=== PATIENT | female | born 1945 | race Caucasian/White ===

== ENCOUNTER 2017-12-15 13:03 | Emergency (ER) | payer MEDICARE, BC ==
[2017-12-15 13:57] LABS: ADD MAN DIFF? NO
[2017-12-15 13:59] LABS: BASO # 0.1 x10^3/uL (0.0-0.2); BASO % 1 % (0-3); EOS # 0.1 x10^3/uL (0.0-0.7); EOS % 1 % (0-3); HEMOGLOBIN 13.7 g/dL (12.0-15.5); LYMPH # 1.6 x10^3/uL (1.0-4.8); LYMPH % 15 % (24-48); MEAN CORPUSCULAR HEMOGLOBIN 29 pg (25-35); MEAN CORPUSCULAR HGB CONC 34 g/dL (31-37); MEAN CORPUSCULAR VOLUME 83 fL (79-100); MONO # 0.7 x10^3/uL (0.0-1.1); MONO % 7 % (0-9); NEUT # 7.8 x10^3uL (1.8-7.7); NEUT % 76 % (31-73); PLATELET COUNT 513 x10^3/uL (140-400); RED CELL DISTRIBUTION WIDTH 15.6 % (11.5-14.5); WHITE BLOOD COUNT 10.4 x10^3/uL (4.0-11.0)
[2017-12-15 14:00] LABS: BILIRUBIN,URINE NEGATIVE (NEG); CLARITY,URINE CLEAR; COLOR,URINE YELLOW; GLUCOSE,URINE NEGATIVE (NEG); NITRITE,URINE NEGATIVE (NEG); PROTEIN,URINE NEGATIVE (NEG-TRACE)
[2017-12-15 14:09] LABS: ANION GAP 9 (6-14); BLOOD UREA NITROGEN 12 mg/dL (7-20); CALCIUM 9.6 mg/dL (8.5-10.1); CARBON DIOXIDE 26 mmol/L (21-32); CHLORIDE 100 mmol/L (98-107); CREATININE 0.8 mg/dL (0.6-1.0); GFR 70.7; GLUCOSE 85 mg/dL (70-99); MAGNESIUM 1.6 mg/dL (1.8-2.4); POTASSIUM 3.4 mmol/L (3.5-5.1); SODIUM 135 mmol/L (136-145)
[2017-12-15 14:14] LABS: BACTERIA,URINE MANY /HPF (0-FEW); RBC,URINE OCC /HPF (0-2); WBC,URINE >40 /HPF (0-4)
[2017-12-15 14:20] LABS: TROPONINI < 0.017 ng/mL (0.000-0.055)
[2017-12-15 14:22] LABS: THYROID STIM HORMONE (TSH) 0.248 uIU/mL (0.358-3.74)
[2017-12-15] MEDS: IV NORMAL SALINE 500ML BAG 500 ML IV ×2 (14:30→14:39)
[2017-12-15] MEDS: MAGNESIUM SULFATE 2GM 50 ML IV (14:38)
[2017-12-15] MEDS: CARBIDOPA/LEVODOPA 25/100MG TABLET PO (14:39)
[2017-12-15 14:58] LABS: FREE T4 1.52 ng/dL (0.76-1.46)
== END 2017-12-15 16:59 | disposition home or self-care (01) ==
LOC: ER 13:03
DX: E86.0 Dehydration (principal); R53.1 Weakness; I10 Essential (primary) hypertension; Z88.5 Allergy status to narcotic agent
CPT/HCPCS: 36415; 80048; 81001; 83735; 84439; 84443; 84484; 85025; 93005; 96365; 96366; 99285-25; J3475; J7040

== ENCOUNTER 2018-02-08 12:23 | Inpatient (IN) | payer MEDICARE, BC ==
[~2018-02-08] VITALS: Ht 160 cm; Wt 49.7 kg
[~2018-02-08 12:23] MED LIST: ALPR0.254 PO; AMLO5TAB4 PO; ARIP2TAB3 PO; CARB1TAB2 PO; CLON1TAB4 PO; DULO30CA2 PO; ESTR0.5T PO; GABA600T2 PO; HYDR-963 PO; METH750T2 PO; NORT25CA PO; OXYC-328 PO; OXYC1TAB7 PO; PANT40TA5 PO; POLY17PO29 PO; SUMA100T3 PO; TRIA1TAB3 PO; VENL75TA PO
--- NOTE | 2018-02-08 12:52 | EKG ---
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
[2018-02-08 13:03] LABS: BASO # 0.1 x10^3/uL (0.0-0.2); BASO % 1 % (0-3); EOS # 0.1 x10^3/uL (0.0-0.7); EOS % 1 % (0-3); HEMATOCRIT 34.9 % (36.0-47.0); HEMOGLOBIN 11.8 g/dL (12.0-15.5); LYMPH # 1.5 x10^3/uL (1.0-4.8); LYMPH % 9 % (24-48); MEAN CORPUSCULAR HEMOGLOBIN 29 pg (25-35); MEAN CORPUSCULAR HGB CONC 34 g/dL (31-37); MEAN CORPUSCULAR VOLUME 84 fL (79-100); MONO # 1.1 x10^3/uL (0.0-1.1); MONO % 6 % (0-9); NEUT # 14.4 x10^3uL (1.8-7.7); NEUT % 84 % (31-73); PLATELET COUNT 506 x10^3/uL (140-400); RED BLOOD COUNT 4.13 x10^6/uL (3.50-5.40); RED CELL DISTRIBUTION WIDTH 18.3 % (11.5-14.5); WHITE BLOOD COUNT 17.1 x10^3/uL (4.0-11.0)
[2018-02-08 13:12] LABS: PROTHROMBIN TIME PATIENT 13.2 SEC (11.7-14.0)
--- NOTE | 2018-02-08 13:12 | RAD ---
Portable chest, 02/08/2018: HISTORY: Altered level of consciousness, fall Comparison is made to a study from 01/30/2018. The heart size is normal. There is calcific plaquing of the aorta. No pulmonary infiltrate is seen. There is no evidence of pleural fluid or pneumothorax. IMPRESSION: No acute cardiopulmonary abnormality is detected. Electronically signed by: Iron Nair MD (02/08/2018 1:09 PM) [facility]
[2018-02-08 13:14] LABS: CALCIUM 10.6 mg/dL (8.5-10.1); CREATININE 1.2 mg/dL (0.6-1.0); GFR 44.3; POTASSIUM 4.7 mmol/L (3.5-5.1)
[2018-02-08] MEDS ORDERED: IV NORMAL SALINE 1000ML BAG 1,000 ML IV ONE (13:15)
--- NOTE | 2018-02-08 13:17 | RAD ---
Pelvis with left hip, 3 views, 02/08/2018: History: Fall The bony structures are demineralized. No hip fracture or dislocation is identified. There are mild degenerative changes at both hips and at the symphysis pubis. There is radiopaque material in the GI tract from a previous diagnostic study obscuring portions of the pelvis. IMPRESSION: 1. Demineralization. 2. No acute bony abnormality is detected.
--- NOTE | 2018-02-08 13:23 | RAD ---
CT of the head without contrast, 02/08/2018: History: Fall, altered level consciousness Comparison is made to a study from 11/09/2017 there is mild cerebral atrophy. There is an unchanged lucency in the left thalamus compatible with old infarct. Minimal deep white matter lucencies bilaterally are compatible with chronic ischemic change. The ventricles are within normal limits in size. There is no shift of the midline structures. There is no evidence of acute intracranial hemorrhage or mass effect. IMPRESSION: 1. Chronic findings as described above. 2. No acute intracranial abnormality is detected. CT of the cervical spine without contrast, 02/08/2018: Noncontrast scans were obtained with multiplanar reconstructions produced. There is fusion of the C4-5 disc space. There is severe narrowing of the C3-4 and C5-6 disc spaces with extensive marginal spurring. There is mild anterolisthesis at C3-4 which appears to be due to facet joint arthropathy. There are moderate degenerative changes involving multiple facet joints bilaterally. No acute fracture or dislocation is identified. The combination of findings is causing mild to moderate central spinal stenosis at C4-5 and C5-6 as well as moderate to severe foraminal stenosis at several levels bilaterally. Moderate calcific plaquing is present at both carotid bifurcations. IMPRESSION: 1. Moderate to severe multilevel degenerative change. 2. No acute bony abnormality is detected. Electronically signed by: Iron Nair MD (02/08/2018 1:20 PM) [facility]
[2018-02-08 13:28] LABS: ALBUMIN 3.3 g/dL (3.4-5.0); ALBUMIN/GLOBULIN RATIO 0.9 (1.0-1.7); MAGNESIUM 1.9 mg/dL (1.8-2.4); TOTAL BILIRUBIN 0.5 mg/dL (0.2-1.0); TOTAL PROTEIN 6.9 g/dL (6.4-8.2)
--- NOTE | 2018-02-08 13:51 | HP ---
ADMIT DATE: 02/08/2018 CHIEF COMPLAINT: Fall with hip pain. HISTORY OF PRESENT ILLNESS: The patient is a pleasant 72-year-old female who we just discharged a couple of days ago, now she fell. She was brought in by EMS. I was in the ER and saw her with EMS. She has complains of hip pain, but the leg is not externally rotated. I doubt it is broken. Interestingly, she does have a white count of 17. I have discussed the case with the ER physician. We are going to admit the patient. PAST MEDICAL HISTORY: Hypertension, anxiety, depression, RLS, GERD. ALLERGIES: None. FAMILY HISTORY: Diabetes. SOCIAL HISTORY: She does not drink, smoke or take drugs. MEDICATIONS: Reviewed, please refer to the MRAD. REVIEW OF SYSTEMS: GENERAL: No history of weight change, weakness or fevers. SKIN: No bruising, hair changes or rashes. EYES: No blurred, double or loss of vision. NOSE AND THROAT: No history of nosebleeds, hoarseness or sore throat. HEART: No history of palpitations, chest pain or shortness of breath on exertion. LUNGS: Denies cough, hemoptysis, wheezing or shortness of breath. GASTROINTESTINAL: Denies changes in appetite, nausea, vomiting, diarrhea or constipation. GENITOURINARY: No history of frequency, urgency, hesitancy or nocturia. NEUROLOGIC: Denies history of numbness, tingling, tremor or weakness. PSYCHIATRIC: No history of panic, anxiety or depression. ENDOCRINE: No history of heat or cold intolerance, polyuria or polydipsia. EXTREMITIES: She complains of hip pain. PHYSICAL EXAMINATION: VITAL SIGNS: Temperature afebrile, pulse 98, respirations 18, blood pressure 144/90. GENERAL: She is alert, weak. HEART: Normal S1, S2. LUNGS: Clear. ABDOMEN: Soft. EXTREMITIES: Trace edema. SKIN: No rashes. ENDOCRINE: No thyromegaly. LYMPHATICS: No cervical nodes. HEMATOPOIETIC: No bruising. LABORATORY DATA: White count 17. ASSESSMENT AND PLAN: Fall with hip pain and leukocytosis. The patient has been admitted. We will give her IV fluids, empiric IV antibiotics. PT, OT, home meds, frequent labs. ANA DYE DO DR: CRUZITO/bethany JOB#: [id number] / [id number]
--- NOTE | 2018-02-08 14:01 | PHYS DOC ---
Past Medical History Past Medical History: Anxiety, Dementia, Depression, Hypertension, Migraines, Unknown, Other Additional Past Medical Histor: restless leg syndrome, overdose Past Surgical History: Cholecystectomy, Hysterectomy, Tonsillectomy, Other Additional Past Surgical Histo: hernia repair, esophageal stretching Alcohol Use: Occasionally Drug Use: None Adult General Chief Complaint Chief Complaint: MECHANICAL FALL HPI HPI Patient is a 72 year old female who brought in by EMS because of a fall at home and injury to left hip. Patient's family stated she had a fall most likely about 0830 and was not able to get up until 1130 that her daughter called 911. Patient states she remembers that she was watering the plants. Patient had history of dementia and frequent emergency room visits and hospitalization and was discharged from hospital recently. Patient is alert and oriented 1 and unable to give accurate history. Review of Systems Review of Systems Constitutional: Denies fever or chills [] Eyes: Denies change in visual acuity, redness, or eye pain [] HENT: Denies nasal congestion or sore throat [] Respiratory: Denies cough or shortness of breath [] Cardiovascular: No additional information not addressed in HPI [] GI: Denies abdominal pain, nausea, vomiting, bloody stools or diarrhea [] : Denies dysuria or hematuria [] Musculoskeletal: Denies back pain, reports joint pain [] Integument: Denies rash or skin lesions [] Neurologic: Denies headache, focal weakness or sensory changes [] Endocrine: Denies polyuria or polydipsia [] All other systems were reviewed and found to be within normal limits, except as documented in this note. Current Medications Current Medications Current Medications Medications (Trade) Dose Ordered Sig/Jaswinder Start Time Stop Time Status Last Admin Dose Admin Ceftriaxone Sodium 1 gm/ Dextrose 50 ml @ 100 mls/hr Q24H 02/08/18 13:15 UNV Ceftriaxone Sodium 50 ml @ 100 mls/hr 1X ONCE 02/08/18 13:30 02/08/18 13:59 DC 02/08/18 14:20 100 MLS/HR Sodium Chloride 1,000 ml @ 1,000 mls/hr 1X ONCE 02/08/18 13:15 02/08/18 14:14 DC 02/08/18 14:03 1,000 MLS/HR Allergies Allergies Allergies Coded Allergies Type Severity Reaction Last Updated Verified codeine Allergy Intermediate Hives 05/02/16 Yes Physical Exam Physical Exam Constitutional: Mild distress, non-toxic appearance. [] HENT: Normocephalic, atraumatic, oropharynx dry, no oral exudates, nose normal. [] Eyes: PERRLA, EOMI, conjunctiva normal, no discharge. [] Neck: Normal range of motion, no tenderness, supple, no stridor. [] Cardiovascular: Tachycardia, no murmur [] Lungs & Thorax: Bilateral breath sounds clear to auscultation [] Abdomen: Bowel sounds normal, soft, no tenderness, no masses, no pulsatile masses. [] Skin: Warm, dry, no erythema, no rash. [] Back: No tenderness, no CVA tenderness. [] Extremities: No tenderness, no cyanosis, no clubbing, , no edema, normal range of motion of bilateral hips. [] Neurologic: Alert and oriented X 1 at her usual level of consciousness, decrease of range of motion of right upper and lower extremity related to previous CVA,normal motor function, normal sensory function, no focal deficits noted. [] Psychologic: Affect normal, judgement normal, mood normal. [] Current Patient Data Vital Signs Vital Signs Date Time Temp Pulse Resp B/P (MAP) Pulse Ox O2 Delivery O2 Flow Rate FiO2 02/08/18 12:25 99.2 99 18 138/65 (89) 96 Room Air 99.2 Lab Values Laboratory Tests Test 02/08/18 12:45 White Blood Count 17.1 x10^3/uL (4.0-11.0) H Red Blood Count 4.13 x10^6/uL (3.50-5.40) Hemoglobin 11.8 g/dL (12.0-15.5) L Hematocrit 34.9 % (36.0-47.0) L Mean Corpuscular Volume 84 fL (79-100) Mean Corpuscular Hemoglobin 29 pg (25-35) Mean Corpuscular Hemoglobin Concent 34 g/dL (31-37) Red Cell Distribution Width 18.3 % (11.5-14.5) H Platelet Count 506 x10^3/uL (140-400) H Neutrophils (%) (Auto) 84 % (31-73) H Lymphocytes (%) (Auto) 9 % (24-48) L Monocytes (%) (Auto) 6 % (0-9) Eosinophils (%) (Auto) 1 % (0-3) Basophils (%) (Auto) 1 % (0-3) Neutrophils # (Auto) 14.4 x10^3uL (1.8-7.7) H Lymphocytes # (Auto) 1.5 x10^3/uL (1.0-4.8) Monocytes # (Auto) 1.1 x10^3/uL (0.0-1.1) Eosinophils # (Auto) 0.1 x10^3/uL (0.0-0.7) Basophils # (Auto) 0.1 x10^3/uL (0.0-0.2) Segmented Neutrophils % 77 % (35-66) H Band Neutrophils % 7 % (0-9) Lymphocytes % 12 % (24-48) L Monocytes % 4 % (0-10) Platelet Estimate Increased (ADEQUATE) Anisocytosis Slight Prothrombin Time 13.2 SEC (11.7-14.0) Prothrombin Time INR 1.1 (0.8-1.1) PTT 33 SEC (24-38) Sodium Level 138 mmol/L (136-145) Potassium Level 4.7 mmol/L (3.5-5.1) Chloride Level 104 mmol/L (98-107) Carbon Dioxide Level 22 mmol/L (21-32) Anion Gap 12 (6-14) Blood Urea Nitrogen 13 mg/dL (7-20) Creatinine 1.2 mg/dL (0.6-1.0) H Estimated GFR (Cockcroft-Gault) 44.3 BUN/Creatinine Ratio 11 (6-20) Glucose Level 102 mg/dL (70-99) H Lactic Acid Level 1.6 mmol/L (0.4-2.0) Calcium Level 10.6 mg/dL (8.5-10.1) H Magnesium Level 1.9 mg/dL (1.8-2.4) Total Bilirubin 0.5 mg/dL (0.2-1.0) Aspartate Amino Transferase (AST) 22 U/L (15-37) Alanine Aminotransferase (ALT) 31 U/L (14-59) Alkaline Phosphatase 126 U/L (46-116) H Creatine Kinase 96 U/L (26-192) Troponin I Quantitative < 0.017 ng/mL (0.000-0.055) TF-Pqq-L-Type Natriuretic Peptide 208 pg/mL (0-124) H Total Protein 6.9 g/dL (6.4-8.2) Albumin 3.3 g/dL (3.4-5.0) L Albumin/Globulin Ratio 0.9 (1.0-1.7) L Laboratory Tests 02/08/18 12:45 Laboratory Tests 02/08/18 12:45 EKG EKG EKG interpreted by me. EKG at 1236 showed normal sinus rhythm at rate of 96, no ST and T-wave abnormalities. Radiology/Procedures Radiology/Procedures [facility] [address] [place] [address] IMAGING REPORT Signed PATIENT: TYLER GUTIERREZ ACCOUNT: [id number] : 1945 LOCATION: ER AGE: 72 SEX: F EXAM STATUS: PRE ER ORD. PHYSICIAN: ANGELICA VALDERRAMA MD REASON: fall , altered level of consciousness PROCEDURE: PORTABLE CHEST 1V Portable chest, 02/08/2018: HISTORY: Altered level of consciousness, fall Comparison is made to a study from 01/30/2018. The heart size is normal. There is calcific plaquing of the aorta. No pulmonary infiltrate is seen. There is no evidence of pleural fluid or pneumothorax. IMPRESSION: No acute cardiopulmonary abnormality is detected. Electronically signed by: Iron aNir MD (02/08/2018 1:09 PM) [facility] DICTATED and SIGNED BY: IRON NAIR MD DATE: 02/08/18 1308 [facility] [address] [place] [address] IMAGING REPORT Signed PATIENT: TYLER GUTIERREZ ACCOUNT: [id number] : 1945 LOCATION: ER AGE: 72 SEX: F EXAM STATUS: PRE ER ORD. PHYSICIAN: ANGELICA VALDERRAMA MD REASON: fall PROCEDURE: CT HEAD AND CERVICAL SPINE WO CT of the head without contrast, 02/08/2018: History: Fall, altered level consciousness Comparison is made to a study from 11/09/2017 there is mild cerebral atrophy. There is an unchanged lucency in the left thalamus compatible with old infarct. Minimal deep white matter lucencies bilaterally are compatible with chronic ischemic change. The ventricles are within normal limits in size. There is no shift of the midline structures. There is no evidence of acute intracranial hemorrhage or mass effect. IMPRESSION: 1. Chronic findings as described above. 2. No acute intracranial abnormality is detected. CT of the cervical spine without contrast, 02/08/2018: Noncontrast scans were obtained with multiplanar reconstructions produced. There is fusion of the C4-5 disc space. There is severe narrowing of the C3-4 and C5-6 disc spaces with extensive marginal spurring. There is mild anterolisthesis at C3-4 which appears to be due to facet joint arthropathy. There are moderate degenerative changes involving multiple facet joints bilaterally. No acute fracture or dislocation is identified. The combination of findings is causing mild to moderate central spinal stenosis at C4-5 and C5-6 as well as moderate to severe foraminal stenosis at several levels bilaterally. Moderate calcific plaquing is present at both carotid bifurcations. IMPRESSION: 1. Moderate to severe multilevel degenerative change. 2. No acute bony abnormality is detected. Electronically signed by: Iron Nair MD (02/08/2018 1:20 PM) [facility] DICTATED and SIGNED BY: IRON NAIR MD DATE: 02/08/18 1309 [facility] [address] [place] [address] IMAGING REPORT Signed PATIENT: TYLER GUTIERREZ ACCOUNT: [id number] : 1945 LOCATION: ER AGE: 72 SEX: F EXAM STATUS: PRE ER ORD. PHYSICIAN: ANGELICA VALDERRAMA MD REASON: fall , altered level of consciousness PROCEDURE: HIP LEFT 2V WITH PELVIS Pelvis with left hip, 3 views, 02/08/2018: History: Fall The bony structures are demineralized. No hip fracture or dislocation is identified. There are mild degenerative changes at both hips and at the symphysis pubis. There is radiopaque material in the GI tract from a previous diagnostic study obscuring portions of the pelvis. IMPRESSION: 1. Demineralization. 2. No acute bony abnormality is detected. DICTATED and SIGNED BY: IRON NAIR MD DATE: 02/08/18 1311 Course & Med Decision Making Course & Med Decision Making Pertinent Labs and Imaging studies reviewed. (See chart for details) Evaluation of patient in ER showed 72-year-old female patient with history of frequent emergency room and seen and altered level of consciousness brought in by EMS because of a fall and injury to left hip. Patient did not have some of fracture at was confused with leukocytosis. Patient treated for sepsis with IV fluid and antibiotic. UA showed more than [address] Donaldson accepted admission at 1322. Dragon Disclaimer Dragon Disclaimer This electronic medical record was generated, in whole or in part, using a voice recognition dictation system. Departure Departure Impression: Primary Impression: Sepsis Additional Impressions: Fall at home Generalized weakness Urinary tract infection Disposition: ADMITTED INPATIENT (at 1323) Admitting Physician: Alcides Donaldson (January the admission at 1322) Condition: IMPROVED Referrals: MANNY LAURENT MD (PCP) Problem Qualifiers ANGELICA VALDERRAMA MD Feb 08, 2018 14:01
[2018-02-08 14:29] LABS: BILIRUBIN,URINE NEGATIVE (NEG); CLARITY,URINE CLEAR; COLOR,URINE YELLOW; NITRITE,URINE NEGATIVE (NEG); PH,URINE 5.5; PROTEIN,URINE NEGATIVE (NEG-TRACE); UROBILINOGEN,URINE 0.2 mg/dL (0.2 mg/dL)
[2018-02-08 14:34] LABS: BACTERIA,URINE 0 /HPF (0-FEW); RBC,URINE 0 /HPF (0-2); SQUAMOUS EPITHELIAL CELL,UR MOD /LPF; WBC,URINE >40 /HPF (0-4)
[2018-02-08 14:48] LABS: % BANDS 7 % (0-9); % LYMPHS 12 % (24-48); % MONOS 4 % (0-10); % SEGS 77 % (35-66); ANISOCYTOSIS SLIGHT; PLT ESTIMATE INCREASED (ADEQUATE)
[2018-02-08] MEDS ORDERED: NYST15CR TP (17:35)
[2018-02-08] MEDS ORDERED: MIRT15TA3 PO (17:35)
[2018-02-08] MEDS ORDERED: MEGE40TA PO (17:35)
[2018-02-08] MEDS ORDERED: TRAM50TA PO (17:35)
[2018-02-08] MEDS ORDERED: SUMA100T4 PO (17:35)
[2018-02-08] MEDS ORDERED: BALS3OIN TP (17:35)
[2018-02-08] MEDS ORDERED: ONDA8TAB12 PO (17:35)
[2018-02-08] MEDS ORDERED: ERYT250C8 PO (17:35)
[2018-02-08 19:00] VITALS: BP 152/119
[2018-02-08] MEDS ORDERED: C.DIFF MED SCREEN BY RX. MC ONE (19:45)
[2018-02-08] MEDS ORDERED: ONDANSETRON ODT 4 MG TAB.RAPDIS. PO PRN (20:30)
[2018-02-08] MEDS ORDERED: SUMAtriptan SUCCINATE 100 MG TABLET PO PRN (20:30)
[2018-02-08] MEDS: MEGESTROL 20 MG TABLET. PO SCH (20:48)
[2018-02-08] MEDS: MIRTAZAPINE 15 MG TABLET PO SCH (20:51)
[2018-02-08] MEDS: NYSTATIN 100,000 UNIT/GM TOPICAL CREAM 15GM TUBE. TP SCH (20:52)
[2018-02-08] MEDS ORDERED: BALSAM PERU TP SCH (21:00)
[2018-02-08] MEDS ORDERED: CASTOR OIL TP SCH (21:00)
[2018-02-08 23:00] VITALS: BP 128/88
[2018-02-09 03:00] VITALS: BP 148/67
--- NOTE | 2018-02-09 03:31 | RAD ---
EXAM: CHEST 1 VIEW History: Redo PICC line COMPARISON: Same day exam TECHNIQUE: Single portable radiograph of the chest FINDINGS: The cardiac silhouette is unremarkable. Mild prominent appearing bilateral transitional markings similar to prior exam. The costophrenic sulci are clear and well demarcated. Right-sided PICC line is identified with the tip now projecting in the region of the SVC. IMPRESSION: Right-sided PICC line in place. Electronically signed by: Evan Lazo MD (02/09/2018 3:28 AM) [id number]
--- NOTE | 2018-02-09 03:31 | RAD ---
EXAM: CHEST 1 VIEW History: PICC line placement COMPARISON: 02/08/2018 TECHNIQUE: Single portable radiograph of the chest Findings/ impression: The cardiac silhouette is unremarkable. Mild prominent appearing bilateral interstitial lung markings similar to prior exam. Right-sided PICC line is identified with tip projecting in the region of the left brachiocephalic vein. Electronically signed by: Evan Lazo MD (02/09/2018 3:27 AM) [id number]
[2018-02-09 07:00] VITALS: BP 132/87
[2018-02-09] MEDS ORDERED: LACTOBACILLUS RHAMNOSUS GG 1 CAPSULE. PO SCH (09:00)
[2018-02-09] MEDS: MEGESTROL 20 MG TABLET. PO SCH ×2 (09:00→20:38)
[2018-02-09] MEDS: DULoxetine HCL 30 MG CAPSULE.DR PO SCH (10:58)
[2018-02-09] MEDS: traMADol 50 MG TABLET PO PRN ×3 (10:59→20:39)
[2018-02-09 11:00] VITALS: BP 161/82
[2018-02-09] MEDS: amLODIPine BESYLATE 5 MG TABLET PO SCH (11:01)
[2018-02-09] MEDS: NYSTATIN 100,000 UNIT/GM TOPICAL CREAM 15GM TUBE. TP SCH ×4 (11:03→21:56)
[2018-02-09] MEDS: cefTRIAXone IV Push 1 GM VIAL. IVP SCH (13:23)
--- NOTE | 2018-02-09 13:41 | PDOC ---
PROGRESS NOTES Chief Complaint Chief Complaint Sepsis UTI fall Dementia History of: Anxiety, Depression, Hypertension, Migraines, Unknown, Other restless leg syndrome, overdose Cholecystectomy, Hysterectomy, Tonsillectomy, Other hernia repair, esophageal stretching History of Present Illness History of Present Illness Pt seen and examined BRAEDEN MATHEW RN Vitals Vitals Vital Signs Date Time Temp Pulse Resp B/P (MAP) Pulse Ox O2 Delivery O2 Flow Rate FiO2 02/09/18 13:24 Room Air 02/09/18 11:01 93 161/82 02/09/18 11:00 99.0 18 100 99.0 Physical Exam General: No acute distress, Other (Confused) Heart: Regular rate, Normal S1 Lungs: Clear Abdomen: Normal bowel sounds, Soft Extremities: No clubbing, No cyanosis Skin: No rashes, No breakdown Labs LABS Laboratory Tests Test 02/08/18 13:45 02/08/18 23:30 Urine Collection Type U cath Urine Color Yellow Urine Clarity Clear Urine pH 5.5 Urine Specific [place] 1.015 Urine Protein Negative mg/dL (NEG-TRACE) Urine Glucose (UA) Negative mg/dL (NEG) Urine Ketones (Stick) Negative mg/dL (NEG) Urine Blood Negative (NEG) Urine Nitrite Negative (NEG) Urine Bilirubin Negative (NEG) Urine Urobilinogen Dipstick 0.2 mg/dL (0.2 mg/dL) Urine Leukocyte Esterase Large (NEG) Urine RBC 0 /HPF (0-2) Urine WBC >40 /HPF (0-4) Urine Squamous Epithelial Cells Mod /LPF Urine Transitional Epithelial Cells Mod /LPF Urine Renal Epithelial Cells Few /LPF Urine Bacteria 0 /HPF (0-FEW) Lactic Acid Level 1.1 mmol/L (0.4-2.0) Review of Systems Review of Systems co weakness co pain Assessment and Plan Assessmemt and Plan Problems Medical Problems: (1) Fall at home Status: Acute (2) Generalized weakness Status: Acute (3) Urinary tract infection Status: Acute Sepsis UTI fall Dementia History of: Anxiety, Depression, Hypertension, Migraines, Unknown, Other restless leg syndrome, overdose Cholecystectomy, Hysterectomy, Tonsillectomy, Other hernia repair, esophageal stretching Plan IV Rocephin PTOT Home meds Labs SNU eval Comment Review of Relevant I have reviewed the following items linda (where applicable) has been applied. Labs Laboratory Tests Test 02/08/18 12:45 02/08/18 13:45 02/08/18 23:30 White Blood Count 17.1 x10^3/uL (4.0-11.0) Red Blood Count 4.13 x10^6/uL (3.50-5.40) Hemoglobin 11.8 g/dL (12.0-15.5) Hematocrit 34.9 % (36.0-47.0) Mean Corpuscular Volume 84 fL (79-100) Mean Corpuscular Hemoglobin 29 pg (25-35) Mean Corpuscular Hemoglobin Concent 34 g/dL (31-37) Red Cell Distribution Width 18.3 % (11.5-14.5) Platelet Count 506 x10^3/uL (140-400) Neutrophils (%) (Auto) 84 % (31-73) Lymphocytes (%) (Auto) 9 % (24-48) Monocytes (%) (Auto) 6 % (0-9) Eosinophils (%) (Auto) 1 % (0-3) Basophils (%) (Auto) 1 % (0-3) Neutrophils # (Auto) 14.4 x10^3uL (1.8-7.7) Lymphocytes # (Auto) 1.5 x10^3/uL (1.0-4.8) Monocytes # (Auto) 1.1 x10^3/uL (0.0-1.1) Eosinophils # (Auto) 0.1 x10^3/uL (0.0-0.7) Basophils # (Auto) 0.1 x10^3/uL (0.0-0.2) Segmented Neutrophils % 77 % (35-66) Band Neutrophils % 7 % (0-9) Lymphocytes % 12 % (24-48) Monocytes % 4 % (0-10) Platelet Estimate Increased (ADEQUATE) Anisocytosis Slight Prothrombin Time 13.2 SEC (11.7-14.0) Prothromb Time International Ratio 1.1 (0.8-1.1) Activated Partial Thromboplast Time 33 SEC (24-38) Sodium Level 138 mmol/L (136-145) Potassium Level 4.7 mmol/L (3.5-5.1) Chloride Level 104 mmol/L (98-107) Carbon Dioxide Level 22 mmol/L (21-32) Anion Gap 12 (6-14) Blood Urea Nitrogen 13 mg/dL (7-20) Creatinine 1.2 mg/dL (0.6-1.0) Estimated GFR (Cockcroft-Gault) 44.3 BUN/Creatinine Ratio 11 (6-20) Glucose Level 102 mg/dL (70-99) Lactic Acid Level 1.6 mmol/L (0.4-2.0) 1.1 mmol/L (0.4-2.0) Calcium Level 10.6 mg/dL (8.5-10.1) Magnesium Level 1.9 mg/dL (1.8-2.4) Total Bilirubin 0.5 mg/dL (0.2-1.0) Aspartate Amino Transf (AST/SGOT) 22 U/L (15-37) Alanine Aminotransferase (ALT/SGPT) 31 U/L (14-59) Alkaline Phosphatase 126 U/L (46-116) Creatine Kinase 96 U/L (26-192) Troponin I Quantitative < 0.017 ng/mL (0.000-0.055) MC-Pxc-Y-Type Natriuretic Peptide 208 pg/mL (0-124) Total Protein 6.9 g/dL (6.4-8.2) Albumin 3.3 g/dL (3.4-5.0) Albumin/Globulin Ratio 0.9 (1.0-1.7) Urine Collection Type U cath Urine Color Yellow Urine Clarity Clear Urine pH 5.5 Urine Specific [place] 1.015 Urine Protein Negative mg/dL (NEG-TRACE) Urine Glucose (UA) Negative mg/dL (NEG) Urine Ketones (Stick) Negative mg/dL (NEG) Urine Blood Negative (NEG) Urine Nitrite Negative (NEG) Urine Bilirubin Negative (NEG) Urine Urobilinogen Dipstick 0.2 mg/dL (0.2 mg/dL) Urine Leukocyte Esterase Large (NEG) Urine RBC 0 /HPF (0-2) Urine WBC >40 /HPF (0-4) Urine Squamous Epithelial Cells Mod /LPF Urine Transitional Epithelial Cells Mod /LPF Urine Renal Epithelial Cells Few /LPF Urine Bacteria 0 /HPF (0-FEW) Laboratory Tests Test 02/08/18 13:45 02/08/18 23:30 Urine Collection Type U cath Urine Color Yellow Urine Clarity Clear Urine pH 5.5 Urine Specific [place] 1.015 Urine Protein Negative mg/dL (NEG-TRACE) Urine Glucose (UA) Negative mg/dL (NEG) Urine Ketones (Stick) Negative mg/dL (NEG) Urine Blood Negative (NEG) Urine Nitrite Negative (NEG) Urine Bilirubin Negative (NEG) Urine Urobilinogen Dipstick 0.2 mg/dL (0.2 mg/dL) Urine Leukocyte Esterase Large (NEG) Urine RBC 0 /HPF (0-2) Urine WBC >40 /HPF (0-4) Urine Squamous Epithelial Cells Mod /LPF Urine Transitional Epithelial Cells Mod /LPF Urine Renal Epithelial Cells Few /LPF Urine Bacteria 0 /HPF (0-FEW) Lactic Acid Level 1.1 mmol/L (0.4-2.0) Medications Current Medications Sodium Chloride 1,000 ml @ 1,000 mls/hr 1X ONCE IV Last administered on at 14:03; Start 02/08/18 at 13:15; Stop 02/08/18 at 14:14; Status DC Ceftriaxone Sodium 1 gm/ Dextrose 50 ml @ 100 mls/hr Q24H IV ; Start 02/08/18 at 13:15; Status UNV Ceftriaxone Sodium 50 ml @ 100 mls/hr 1X ONCE IV Last administered on at 14:20; Start 02/08/18 at 13:30; Stop 02/08/18 at 13:59; Status DC Ceftriaxone Sodium (Rocephin) 1 gm Q24H IVP Last administered on 02/09/18at 13: 23; Start 02/09/18 at 14:00 Acetaminophen/ Hydrocodone Bitart (Lortab 5/325) 1 tab PRN Q4HRS PRN PO MODERATE - SEVERE PAIN; Start 02/08/18 at 19:45 Pharmacy Consult (C.diff Med Screen By Rx) 1 each 1X ONCE [facility] ; Start 02/08/18 at 19:45; Stop 02/08/18 at 19:46; Status Cancel Amlodipine Besylate (Norvasc) 5 mg DAILY PO Last administered on 02/09/18at 11: 01; Start 02/09/18 at 09:00 Duloxetine HCl (Cymbalta) 30 mg DAILY PO Last administered on 02/09/18at 10:58; Start 02/09/18 at 09:00 Sumatriptan Succinate (Imitrex) 100 mg PRN DAILY PRN PO MIGRAINE HEADACHE; Start 02/08/18 at 20:30 Tramadol HCl (Ultram) 50 mg Q4HRS PRN PO MILD PAIN Last administered on at 10:59; Start 02/08/18 at 20:30 Non-Formulary Medication (Balsam [place]/ [place] Oil (Circuderm Emollient)) 3 gm BID TP ; Start 02/08/18 at 21:00; Status UNV Megestrol Acetate (Megace) 40 mg BID PO ; Start 02/08/18 at 21:00 Mirtazapine (Remeron) 15 mg QHS PO Last administered on 02/08/18at 20:51; Start 02/08/18 at 21:00 Nystatin (Mycostatin) 1 mandeep TID TP Last administered on 02/09/18at 13:24; Start 02/08/18 at 21:00 Ondansetron HCl (Zofran Odt) 8 mg PRN Q8HRS PRN PO NAUSEA/VOMITING Last administered on 02/09/18at 13:23; Start 02/08/18 at 20:30 Lactobacillus Rhamnosus (Culturelle) 1 cap BID PO Last administered on at 10:58; Start 02/09/18 at 09:00; Stop 02/09/18 at 11:18; Status DC Active Scripts Active Reported Sumatriptan Succinate 100 Mg Tablet 100 Mg PO PRN DAILY PRN Zofran Odt (Ondansetron) 8 Mg Tab.rapdis 1 Tab PO Q8HRS Mirtazapine 15 Mg Tablet 1 Tab PO QHS Megestrol Acetate 40 Mg Tablet 40 Mg PO BID Circuderm Emollient (Balsam [place] Oil) 3 Gm Oint.pack 3 Gm TP BID Tramadol Hcl 50 Mg Tablet 50 Mg PO Q4HRS PRN Nystatin 15 Gm Cream..g. 1 Mandeep TP TID Erythromycin (Erythromycin Base) 250 Mg Capsule.dr 250 Mg PO TIDBFRMEAL Norvasc (Amlodipine Besylate) 5 Mg Tablet 5 Mg PO DAILY Cymbalta (Duloxetine Hcl) 30 Mg Capsule.dr 30 Mg PO DAILY Sinemet 25-100 Mg Tablet (Carbidopa/Levodopa) 1 Each Tablet 1 Tab PO 5XDAY Vitals/I & O Vital Sign - Last 24 Hours 902/08/18 02/08/18 02/08/18 14:15 15:15 17:00 19:00 Temp 98.6 98.6 Pulse 92 97 91 Resp 18 16 18 B/P (MAP) 152/119 (130) Pulse Ox 96 96 100 O2 Delivery Room Air Room Air 02/08/18 02/08/18 02/09/18 02/09/18 19:45 23:00 03:00 07:00 Temp 98.5 99.3 98.1 98.5 99.3 98.1 Pulse 107 103 93 Resp 18 18 18 B/P (MAP) 128/88 (101) 148/67 (94) 132/87 (102) Pulse Ox 92 98 95 O2 Delivery Room Air Room Air Room Air Room Air 02/09/18 02/09/18 02/09/18 02/09/18 10:59 11:00 11:01 13:24 Temp 99.0 99.0 Pulse 93 93 Resp 18 B/P (MAP) 161/82 (108) 161/82 Pulse Ox 100 O2 Delivery Room Air Room Air Room Air ANA DYE III DO Feb 09, 2018 13:41
[2018-02-09 15:00] VITALS: BP 150/87
[2018-02-09 19:00] VITALS: BP 108/69
[2018-02-09] MEDS: MIRTAZAPINE 15 MG TABLET PO SCH (20:38)
[2018-02-09 23:00] VITALS: BP 129/78
[2018-02-10 02:57] VITALS: BP 128/76
[2018-02-10 07:00] VITALS: BP 139/73
[2018-02-10] MEDS: DULoxetine HCL 30 MG CAPSULE.DR PO SCH (08:58)
[2018-02-10] MEDS: amLODIPine BESYLATE 5 MG TABLET PO SCH (08:59)
[2018-02-10] MEDS: MEGESTROL 20 MG TABLET. PO SCH ×2 (08:59→20:36)
[2018-02-10] MEDS: NYSTATIN 100,000 UNIT/GM TOPICAL CREAM 15GM TUBE. TP SCH ×3 (09:00→20:37)
[2018-02-10] MEDS: HYDROcodone/APAP 5/325MG 1 TAB TABLET PO PRN ×2 (09:00→19:20)
[2018-02-10] MEDS ORDERED: ONDANSETRON PF 4 MG/2 ML VIAL. IV PRN (10:45)
[2018-02-10] MEDS ORDERED: DOCUSATE SODIUM 100 MG CAPSULE. PO PRN (10:45)
[2018-02-10] MEDS ORDERED: ACETAMINOPHEN 325 MG TABLET. PO PRN (10:45)
[2018-02-10 11:00] VITALS: BP 141/77
--- NOTE | 2018-02-10 12:08 | PDOC ---
PROGRESS NOTES Chief Complaint Chief Complaint fall at home chronic unsteady gait recent N/V with gastric stricture 2/2 post parmjit sx 2ms ago at [facility] .recent profound weight loss of 30# in 5 weeks [facility] [employer] h/o lacunar infarct of the left thalamus. hypertension possible UTI, doubt sepsis severe protein-caloric malnutrition plan: cont home meds pt eats ok now, she was just dced from [facility] last week, but pt has some dementia , cannot tell me what happened there cont ceftriaxone for now dvt ppx PTOT sw for rehab History of Present Illness History of Present Illness Pt seen and examined [facility]SS Pleasant QUINCY RN pt has dementia likely, cannot tell me the details of fall at home PT HAS chronic bl leg pain denies UTI symptoms eats ok, no N/V has loose/watery diarrhea daily for 1m , no abd pain Vitals Vitals Vital Signs Date Time Temp Pulse Resp B/P (MAP) Pulse Ox O2 Delivery O2 Flow Rate FiO2 02/10/18 11:00 97.9 90 18 141/77 (98) 100 Room Air 97.9 Physical Exam General: Alert, Oriented X3, Cooperative, No acute distress, Other (Confused) Heart: Regular rate, Normal S1 Lungs: Clear Abdomen: Normal bowel sounds, Soft Extremities: No clubbing, No cyanosis Skin: No rashes, No breakdown Assessment and Plan Assessmemt and Plan Problems Medical Problems: (1) Fall at home Status: Acute (2) Generalized weakness Status: Acute (3) Urinary tract infection Status: Acute Comment Review of Relevant I have reviewed the following items linda (where applicable) has been applied. Labs Laboratory Tests Test 02/08/18 12:45 02/08/18 13:45 02/08/18 23:30 White Blood Count 17.1 x10^3/uL (4.0-11.0) Red Blood Count 4.13 x10^6/uL (3.50-5.40) Hemoglobin 11.8 g/dL (12.0-15.5) Hematocrit 34.9 % (36.0-47.0) Mean Corpuscular Volume 84 fL (79-100) Mean Corpuscular Hemoglobin 29 pg (25-35) Mean Corpuscular Hemoglobin Concent 34 g/dL (31-37) Red Cell Distribution Width 18.3 % (11.5-14.5) Platelet Count 506 x10^3/uL (140-400) Neutrophils (%) (Auto) 84 % (31-73) Lymphocytes (%) (Auto) 9 % (24-48) Monocytes (%) (Auto) 6 % (0-9) Eosinophils (%) (Auto) 1 % (0-3) Basophils (%) (Auto) 1 % (0-3) Neutrophils # (Auto) 14.4 x10^3uL (1.8-7.7) Lymphocytes # (Auto) 1.5 x10^3/uL (1.0-4.8) Monocytes # (Auto) 1.1 x10^3/uL (0.0-1.1) Eosinophils # (Auto) 0.1 x10^3/uL (0.0-0.7) Basophils # (Auto) 0.1 x10^3/uL (0.0-0.2) Segmented Neutrophils % 77 % (35-66) Band Neutrophils % 7 % (0-9) Lymphocytes % 12 % (24-48) Monocytes % 4 % (0-10) Platelet Estimate Increased (ADEQUATE) Anisocytosis Slight Prothrombin Time 13.2 SEC (11.7-14.0) Prothromb Time International Ratio 1.1 (0.8-1.1) Activated Partial Thromboplast Time 33 SEC (24-38) Sodium Level 138 mmol/L (136-145) Potassium Level 4.7 mmol/L (3.5-5.1) Chloride Level 104 mmol/L (98-107) Carbon Dioxide Level 22 mmol/L (21-32) Anion Gap 12 (6-14) Blood Urea Nitrogen 13 mg/dL (7-20) Creatinine 1.2 mg/dL (0.6-1.0) Estimated GFR (Cockcroft-Gault) 44.3 BUN/Creatinine Ratio 11 (6-20) Glucose Level 102 mg/dL (70-99) Lactic Acid Level 1.6 mmol/L (0.4-2.0) 1.1 mmol/L (0.4-2.0) Calcium Level 10.6 mg/dL (8.5-10.1) Magnesium Level 1.9 mg/dL (1.8-2.4) Total Bilirubin 0.5 mg/dL (0.2-1.0) Aspartate Amino Transf (AST/SGOT) 22 U/L (15-37) Alanine Aminotransferase (ALT/SGPT) 31 U/L (14-59) Alkaline Phosphatase 126 U/L (46-116) Creatine Kinase 96 U/L (26-192) Troponin I Quantitative < 0.017 ng/mL (0.000-0.055) YB-[id number]-Type Natriuretic Peptide 208 pg/mL (0-124) Total Protein 6.9 g/dL (6.4-8.2) Albumin 3.3 g/dL (3.4-5.0) Albumin/Globulin Ratio 0.9 (1.0-1.7) Urine Collection Type U cath Urine Color Yellow Urine Clarity Clear Urine pH 5.5 Urine Specific [place] 1.015 Urine Protein Negative mg/dL (NEG-TRACE) Urine Glucose (UA) Negative mg/dL (NEG) Urine Ketones (Stick) Negative mg/dL (NEG) Urine Blood Negative (NEG) Urine Nitrite Negative (NEG) Urine Bilirubin Negative (NEG) Urine Urobilinogen Dipstick 0.2 mg/dL (0.2 mg/dL) Urine Leukocyte Esterase Large (NEG) Urine RBC 0 /HPF (0-2) Urine WBC >40 /HPF (0-4) Urine Squamous Epithelial Cells Mod /LPF Urine Transitional Epithelial Cells Mod /LPF Urine Renal Epithelial Cells Few /LPF Urine Bacteria 0 /HPF (0-FEW) Microbiology 02/08/18 Blood Culture - Preliminary, Resulted NO GROWTH AFTER 1 DAY Medications Current Medications Sodium Chloride 1,000 ml @ 1,000 mls/hr 1X ONCE IV Last administered on at 14:03; Start 02/08/18 at 13:15; Stop 02/08/18 at 14:14; Status DC Ceftriaxone Sodium 1 gm/ Dextrose 50 ml @ 100 mls/hr Q24H IV ; Start 02/08/18 at 13:15; Status UNV Ceftriaxone Sodium 50 ml @ 100 mls/hr 1X ONCE IV Last administered on at 14:20; Start 02/08/18 at 13:30; Stop 02/08/18 at 13:59; Status DC Ceftriaxone Sodium (Rocephin) 1 gm Q24H IVP Last administered on 02/09/18at 13: 23; Start 02/09/18 at 14:00 Acetaminophen/ Hydrocodone Bitart (Lortab 5/325) 1 tab PRN Q4HRS PRN PO MODERATE - SEVERE PAIN Last administered on 02/10/18at 09:00; Start 02/08/18 at 19:45 Pharmacy Consult (C.diff Med Screen By Rx) 1 each 1X ONCE [facility] ; Start 02/08/18 at 19:45; Stop 02/08/18 at 19:46; Status Cancel Amlodipine Besylate (Norvasc) 5 mg DAILY PO Last administered on 02/10/18at 08: 59; Start 02/09/18 at 09:00 Duloxetine HCl (Cymbalta) 30 mg DAILY PO Last administered on 02/10/18at 08:58; Start 02/09/18 at 09:00 Sumatriptan Succinate (Imitrex) 100 mg PRN DAILY PRN PO MIGRAINE HEADACHE; Start 02/08/18 at 20:30 Tramadol HCl (Ultram) 50 mg Q4HRS PRN PO MILD PAIN Last administered on at 20:39; Start 02/08/18 at 20:30 Non-Formulary Medication (Balsam [place]/ [place] Oil (Circuderm Emollient)) 3 gm BID TP ; Start 02/08/18 at 21:00; Status UNV Megestrol Acetate (Megace) 40 mg BID PO Last administered on 02/10/18at 08:59; Start 02/08/18 at 21:00 Mirtazapine (Remeron) 15 mg QHS PO Last administered on 02/09/18at 20:38; Start 02/08/18 at 21:00 Nystatin (Mycostatin) 1 mandeep TID TP Last administered on 02/10/18at 09:00; Start 02/08/18 at 21:00 Ondansetron HCl (Zofran Odt) 8 mg PRN Q8HRS PRN PO NAUSEA/VOMITING Last administered on 02/09/18at 13:23; Start 02/08/18 at 20:30 Lactobacillus Rhamnosus (Culturelle) 1 cap BID PO Last administered on at 10:58; Start 02/09/18 at 09:00; Stop 02/09/18 at 11:18; Status DC Acetaminophen (Tylenol) 650 mg PRN Q6HRS PRN PO FEVER; Start 02/10/18 at 10:45 Ondansetron HCl (Zofran) 4 mg PRN Q6HRS PRN IV NAUSEA/VOMITING; Start 02/10/18 at 10:45 Docusate Sodium (Colace) 100 mg PRN DAILY PRN PO CONSTIPATION; Start 02/10/18 at 10:45 Active Scripts Active Reported Sumatriptan Succinate 100 Mg Tablet 100 Mg PO PRN DAILY PRN Zofran Odt (Ondansetron) 8 Mg Tab.rapdis 1 Tab PO Q8HRS Mirtazapine 15 Mg Tablet 1 Tab PO QHS Megestrol Acetate 40 Mg Tablet 40 Mg PO BID Circuderm Emollient (Balsam [place] Oil) 3 Gm Oint.pack 3 Gm TP BID Tramadol Hcl 50 Mg Tablet 50 Mg PO Q4HRS PRN Nystatin 15 Gm Cream..g. 1 Mandeep TP TID Erythromycin (Erythromycin Base) 250 Mg Capsule.dr 250 Mg PO TIDBFRMEAL Norvasc (Amlodipine Besylate) 5 Mg Tablet 5 Mg PO DAILY Cymbalta (Duloxetine Hcl) 30 Mg Capsule.dr 30 Mg PO DAILY Sinemet 25-100 Mg Tablet (Carbidopa/Levodopa) 1 Each Tablet 1 Tab PO 5XDAY Vitals/I & O Vital Sign - Last 24 Hours 02/09/18 02/09/18 02/09/18 02/09/18 15:00 19:00 20:00 20:39 Temp 98.7 98.3 98.7 98.3 Pulse 91 79 Resp 18 18 16 B/P (MAP) 150/87 (108) 108/69 (82) Pulse Ox 100 90 100 O2 Delivery Room Air Room Air Room Air Room Air 02/09/18 02/09/18 02/10/18 02/10/18 21:39 23:00 02:57 07:00 Temp 98.0 97.6 97.7 98.0 97.6 97.7 Pulse 83 84 92 Resp 18 B/P (MAP) 129/78 (95) 128/76 (93) 139/73 (95) Pulse Ox 100 93 100 100 O2 Delivery Room Air Room Air Room Air Room Air 02/10/18 02/10/18 02/10/18 02/10/18 08:59 09:00 10:00 11:00 Temp 97.9 97.9 Pulse 92 90 Resp 18 20 18 B/P (MAP) 139/73 141/77 (98) Pulse Ox 100 100 100 O2 Delivery Room Air Room Air Room Air Intake and Output 02/09/18 02/09/18 02/10/18 15:00 23:00 07:00 Intake Total 800 ml 0 ml Balance 800 ml 0 ml NORBERT CORTEZ MD Feb 10, 2018 12:08
[2018-02-10] MEDS: ENOXAPARIN 40 MG/0.4 ML SYRINGE. SQ SCH (14:19)
[2018-02-10] MEDS: cefTRIAXone IV Push 1 GM VIAL. IVP SCH (14:19)
[2018-02-10 15:00] VITALS: BP 140/75
[2018-02-10 19:00] VITALS: BP 111/69
[2018-02-10] MEDS: MIRTAZAPINE 15 MG TABLET PO SCH (20:36)
[2018-02-10] MEDS ORDERED: LACTOBACILLUS RHAMNOSUS GG 1 CAPSULE. PO SCH (21:00)
[2018-02-10 23:00] VITALS: BP 131/82
[2018-02-11] MEDS: HYDROcodone/APAP 5/325MG 1 TAB TABLET PO PRN ×3 (00:51→14:24)
[2018-02-11 03:00] VITALS: BP 120/75
[2018-02-11 05:38] LABS: BASO # 0.1 x10^3/uL (0.0-0.2); BASO % 1 % (0-3); EOS # 0.5 x10^3/uL (0.0-0.7); EOS % 5 % (0-3); HEMATOCRIT 27.4 % (36.0-47.0); HEMOGLOBIN 9.4 g/dL (12.0-15.5); LYMPH # 2.1 x10^3/uL (1.0-4.8); LYMPH % 22 % (24-48); MEAN CORPUSCULAR HEMOGLOBIN 30 pg (25-35); MEAN CORPUSCULAR HGB CONC 34 g/dL (31-37); MEAN CORPUSCULAR VOLUME 87 fL (79-100); MONO # 0.9 x10^3/uL (0.0-1.1); MONO % 10 % (0-9); NEUT # 5.9 x10^3uL (1.8-7.7); NEUT % 62 % (31-73); PLATELET COUNT 367 x10^3/uL (140-400); RED BLOOD COUNT 3.17 x10^6/uL (3.50-5.40); RED CELL DISTRIBUTION WIDTH 18.5 % (11.5-14.5); WHITE BLOOD COUNT 9.4 x10^3/uL (4.0-11.0)
[2018-02-11 05:43] LABS: CREATININE 0.9 mg/dL (0.6-1.0); GFR 61.7; POTASSIUM 3.4 mmol/L (3.5-5.1)
[2018-02-11 07:00] VITALS: BP 160/76
[2018-02-11] MEDS: MEGESTROL 20 MG TABLET. PO SCH (08:42)
[2018-02-11] MEDS: amLODIPine BESYLATE 5 MG TABLET PO SCH (08:42)
[2018-02-11] MEDS: DULoxetine HCL 30 MG CAPSULE.DR PO SCH (08:42)
[2018-02-11] MEDS: NYSTATIN 100,000 UNIT/GM TOPICAL CREAM 15GM TUBE. TP SCH ×2 (08:43→13:37)
--- NOTE | 2018-02-11 10:09 | PDOC ---
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 hypertension possible UTI, doubt sepsis severe protein-caloric malnutrition plan: cont home meds pt eats ok now, she was just dced from [facility] last week, but pt has some dementia, home with [facility] home health today cont ceftriaxone for now dvt ppx PTOT sw for rehab refused AMA History of Present Illness History of Present Illness Pt seen and examined VSS Eyad MATHEW RN pt has dementia likely, cannot tell me the details of fall at home PT HAS chronic bl leg pain denies UTI symptoms eats ok, no N/V has loose/watery diarrhea daily for 1m , no abd pain Vitals Vitals Vital Signs Date Time Temp Pulse Resp B/P (MAP) Pulse Ox O2 Delivery O2 Flow Rate FiO2 02/11/18 09:33 Room Air 02/11/18 08:42 99 160/76 02/11/18 07:03 20 97 02/11/18 07:00 98.1 98.1 Physical Exam General: Alert, Oriented X3, Cooperative, No acute distress, Other (Confused) Heart: Regular rate, Normal S1 Lungs: Clear Abdomen: Normal bowel sounds, Soft Extremities: No clubbing, No cyanosis Skin: No rashes, No breakdown Labs LABS Laboratory Tests Test 02/11/18 05:00 White Blood Count 9.4 x10^3/uL (4.0-11.0) Red Blood Count 3.17 x10^6/uL (3.50-5.40) Hemoglobin 9.4 g/dL (12.0-15.5) Hematocrit 27.4 % (36.0-47.0) Mean Corpuscular Volume 87 fL (79-100) Mean Corpuscular Hemoglobin 30 pg (25-35) Mean Corpuscular Hemoglobin Concent 34 g/dL (31-37) Red Cell Distribution Width 18.5 % (11.5-14.5) Platelet Count 367 x10^3/uL (140-400) Neutrophils (%) (Auto) 62 % (31-73) Lymphocytes (%) (Auto) 22 % (24-48) Monocytes (%) (Auto) 10 % (0-9) Eosinophils (%) (Auto) 5 % (0-3) Basophils (%) (Auto) 1 % (0-3) Neutrophils # (Auto) 5.9 x10^3uL (1.8-7.7) Lymphocytes # (Auto) 2.1 x10^3/uL (1.0-4.8) Monocytes # (Auto) 0.9 x10^3/uL (0.0-1.1) Eosinophils # (Auto) 0.5 x10^3/uL (0.0-0.7) Basophils # (Auto) 0.1 x10^3/uL (0.0-0.2) Sodium Level 140 mmol/L (136-145) Potassium Level 3.4 mmol/L (3.5-5.1) Chloride Level 108 mmol/L (98-107) Carbon Dioxide Level 23 mmol/L (21-32) Anion Gap 9 (6-14) Blood Urea Nitrogen 10 mg/dL (7-20) Creatinine 0.9 mg/dL (0.6-1.0) Estimated GFR (Cockcroft-Gault) 61.7 Glucose Level 81 mg/dL (70-99) Calcium Level 9.0 mg/dL (8.5-10.1) Assessment and Plan Assessmemt and Plan Problems Medical Problems: (1) Fall at home Status: Acute (2) Generalized weakness Status: Acute (3) Urinary tract infection Status: Acute Comment Review of Relevant I have reviewed the following items linda (where applicable) has been applied. Labs Laboratory Tests Test 02/11/18 05:00 White Blood Count 9.4 x10^3/uL (4.0-11.0) Red Blood Count 3.17 x10^6/uL (3.50-5.40) Hemoglobin 9.4 g/dL (12.0-15.5) Hematocrit 27.4 % (36.0-47.0) Mean Corpuscular Volume 87 fL (79-100) Mean Corpuscular Hemoglobin 30 pg (25-35) Mean Corpuscular Hemoglobin Concent 34 g/dL (31-37) Red Cell Distribution Width 18.5 % (11.5-14.5) Platelet Count 367 x10^3/uL (140-400) Neutrophils (%) (Auto) 62 % (31-73) Lymphocytes (%) (Auto) 22 % (24-48) Monocytes (%) (Auto) 10 % (0-9) Eosinophils (%) (Auto) 5 % (0-3) Basophils (%) (Auto) 1 % (0-3) Neutrophils # (Auto) 5.9 x10^3uL (1.8-7.7) Lymphocytes # (Auto) 2.1 x10^3/uL (1.0-4.8) Monocytes # (Auto) 0.9 x10^3/uL (0.0-1.1) Eosinophils # (Auto) 0.5 x10^3/uL (0.0-0.7) Basophils # (Auto) 0.1 x10^3/uL (0.0-0.2) Sodium Level 140 mmol/L (136-145) Potassium Level 3.4 mmol/L (3.5-5.1) Chloride Level 108 mmol/L (98-107) Carbon Dioxide Level 23 mmol/L (21-32) Anion Gap 9 (6-14) Blood Urea Nitrogen 10 mg/dL (7-20) Creatinine 0.9 mg/dL (0.6-1.0) Estimated GFR (Cockcroft-Gault) 61.7 Glucose Level 81 mg/dL (70-99) Calcium Level 9.0 mg/dL (8.5-10.1) Laboratory Tests Test 02/11/18 05:00 White Blood Count 9.4 x10^3/uL (4.0-11.0) Red Blood Count 3.17 x10^6/uL (3.50-5.40) Hemoglobin 9.4 g/dL (12.0-15.5) Hematocrit 27.4 % (36.0-47.0) Mean Corpuscular Volume 87 fL (79-100) Mean Corpuscular Hemoglobin 30 pg (25-35) Mean Corpuscular Hemoglobin Concent 34 g/dL (31-37) Red Cell Distribution Width 18.5 % (11.5-14.5) Platelet Count 367 x10^3/uL (140-400) Neutrophils (%) (Auto) 62 % (31-73) Lymphocytes (%) (Auto) 22 % (24-48) Monocytes (%) (Auto) 10 % (0-9) Eosinophils (%) (Auto) 5 % (0-3) Basophils (%) (Auto) 1 % (0-3) Neutrophils # (Auto) 5.9 x10^3uL (1.8-7.7) Lymphocytes # (Auto) 2.1 x10^3/uL (1.0-4.8) Monocytes # (Auto) 0.9 x10^3/uL (0.0-1.1) Eosinophils # (Auto) 0.5 x10^3/uL (0.0-0.7) Basophils # (Auto) 0.1 x10^3/uL (0.0-0.2) Sodium Level 140 mmol/L (136-145) Potassium Level 3.4 mmol/L (3.5-5.1) Chloride Level 108 mmol/L (98-107) Carbon Dioxide Level 23 mmol/L (21-32) Anion Gap 9 (6-14) Blood Urea Nitrogen 10 mg/dL (7-20) Creatinine 0.9 mg/dL (0.6-1.0) Estimated GFR (Cockcroft-Gault) 61.7 Glucose Level 81 mg/dL (70-99) Calcium Level 9.0 mg/dL (8.5-10.1) Microbiology 02/08/18 Blood Culture - Preliminary, Resulted NO GROWTH AFTER 2 DAYS 02/08/18 Urine Culture - Final, Complete 02/08/18 Urine Culture Result 1 (MARYANN) - Final, Complete Medications Current Medications Sodium Chloride 1,000 ml @ 1,000 mls/hr 1X ONCE IV Last administered on at 14:03; Start 02/08/18 at 13:15; Stop 02/08/18 at 14:14; Status DC Ceftriaxone Sodium 1 gm/ Dextrose 50 ml @ 100 mls/hr Q24H IV ; Start 02/08/18 at 13:15; Status UNV Ceftriaxone Sodium 50 ml @ 100 mls/hr 1X ONCE IV Last administered on at 14:20; Start 02/08/18 at 13:30; Stop 02/08/18 at 13:59; Status DC Ceftriaxone Sodium (Rocephin) 1 gm Q24H IVP Last administered on 02/10/18at 14: 19; Start 02/09/18 at 14:00 Acetaminophen/ Hydrocodone Bitart (Lortab 5/325) 1 tab PRN Q4HRS PRN PO MODERATE - SEVERE PAIN Last administered on 02/11/18at 06:03; Start 02/08/18 at 19:45 Pharmacy Consult (C.diff Med Screen By Rx) 1 each 1X ONCE MC ; Start 02/08/18 at 19:45; Stop 02/08/18 at 19:46; Status Cancel Amlodipine Besylate (Norvasc) 5 mg DAILY PO Last administered on 02/11/18at 08: 42; Start 02/09/18 at 09:00 Duloxetine HCl (Cymbalta) 30 mg DAILY PO Last administered on 02/11/18at 08:42; Start 02/09/18 at 09:00 Sumatriptan Succinate (Imitrex) 100 mg PRN DAILY PRN PO MIGRAINE HEADACHE; Start 02/08/18 at 20:30 Tramadol HCl (Ultram) 50 mg Q4HRS PRN PO MILD PAIN Last administered on at 20:39; Start 02/08/18 at 20:30 Non-Formulary Medication (Balsam [place]/ [place] Oil (Circuderm Emollient)) 3 gm BID TP ; Start 02/08/18 at 21:00; Status UNV Megestrol Acetate (Megace) 40 mg BID PO Last administered on 02/11/18at 08:42; Start 02/08/18 at 21:00 Mirtazapine (Remeron) 15 mg QHS PO Last administered on 02/10/18at 20:36; Start 02/08/18 at 21:00 Nystatin (Mycostatin) 1 mandeep TID TP Last administered on 02/11/18at 08:43; Start 02/08/18 at 21:00 Ondansetron HCl (Zofran Odt) 8 mg PRN Q8HRS PRN PO NAUSEA/VOMITING Last administered on 02/09/18at 13:23; Start 02/08/18 at 20:30 Lactobacillus Rhamnosus (Culturelle) 1 cap BID PO Last administered on at 10:58; Start 02/09/18 at 09:00; Stop 02/09/18 at 11:18; Status DC Acetaminophen (Tylenol) 650 mg PRN Q6HRS PRN PO FEVER; Start 02/10/18 at 10:45 Ondansetron HCl (Zofran) 4 mg PRN Q6HRS PRN IV NAUSEA/VOMITING; Start 02/10/18 at 10:45 Docusate Sodium (Colace) 100 mg PRN DAILY PRN PO CONSTIPATION; Start 02/10/18 at 10:45 Enoxaparin Sodium (Lovenox 40mg Syringe) 40 mg Q24H SQ Last administered on at 14:19; Start 02/10/18 at 13:00 Lactobacillus Rhamnosus (Culturelle) 1 cap BID PO ; Start 02/10/18 at 21:00; Status Cancel Active Scripts Active Reported Sumatriptan Succinate 100 Mg Tablet 100 Mg PO PRN DAILY PRN Zofran Odt (Ondansetron) 8 Mg Tab.rapdis 1 Tab PO Q8HRS Mirtazapine 15 Mg Tablet 1 Tab PO QHS Megestrol Acetate 40 Mg Tablet 40 Mg PO BID Circuderm Emollient (Balsam [place] Oil) 3 Gm Oint.pack 3 Gm TP BID Tramadol Hcl 50 Mg Tablet 50 Mg PO Q4HRS PRN Nystatin 15 Gm Cream..g. 1 Mandeep TP TID Erythromycin (Erythromycin Base) 250 Mg Capsule.dr 250 Mg PO TIDBFRMEAL Norvasc (Amlodipine Besylate) 5 Mg Tablet 5 Mg PO DAILY Cymbalta (Duloxetine Hcl) 30 Mg Capsule.dr 30 Mg PO DAILY Sinemet 25-100 Mg Tablet (Carbidopa/Levodopa) 1 Each Tablet 1 Tab PO 5XDAY Vitals/I & O Vital Sign - Last 24 Hours 02/10/18 02/10/18 02/10/18 02/10/18 11:00 15:00 19:00 19:20 Temp 97.9 97.9 98.6 97.9 97.9 98.6 Pulse 90 89 92 Resp 18 18 18 B/P (MAP) 141/77 (98) 140/75 (96) 111/69 (83) Pulse Ox 100 100 97 O2 Delivery Room Air Room Air Room Air Room Air 02/10/18 02/10/18 02/11/18 02/11/18 19:43 23:00 00:51 03:00 Temp 98.8 97.5 98.8 97.5 Pulse 93 97 Resp 18 B/P (MAP) 131/82 (98) 120/75 (90) Pulse Ox 100 100 97 O2 Delivery Room Air Room Air Room Air Room Air 02/11/18 02/11/18 02/11/18 02/11/18 06:03 07:00 07:03 08:00 Temp 98.1 98.1 Pulse 99 Resp 18 20 B/P (MAP) 160/76 (104) Pulse Ox 97 97 O2 Delivery Room Air Room Air Room Air Room Air 02/11/18 02/11/18 08:42 09:33 Pulse 99 B/P (MAP) 160/76 O2 Delivery Room Air Intake and Output 02/10/18 02/10/18 02/11/18 15:00 23:00 07:00 Intake Total 360 ml 180 ml Balance 360 ml 180 ml Nutrition Consultation Dietary Evaluation: Recommendations by RD: Protein supplementation Comments: Continue w/GI soft diet, honor food preferences, and provide snacks as requested REC Magic Cup w/breakfast Expected Outcomes/Goals: PO intake to meet >75% est needs Interpretation of weight loss: >7.5% in 3 months Malnutrition Findings: Weight Status: Underweight LIBERTY MUNGUIA MD Feb 11, 2018 10:09
[2018-02-11 11:00] VITALS: BP 144/86
--- NOTE | 2018-02-11 13:29 | PDOC3 ---
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 hypertension possible UTI, doubt sepsis severe protein-caloric malnutrition plan: cont home meds pt eats ok now, she was just dced from [facility] last week, but pt has some dementia, home with [facility] today cont ceftriaxone for now dvt ppx PTOT sw for rehab refused AMA History of Present Illness History of Present Illness Pt seen and examined VSS Eyad MATHEW RN pt has dementia cannot tell me the details of fall at home PT HAS chronic bl leg pain denies UTI symptoms eats ok, no N/V no abd pain FINAL DIAGNOSIS Problems Medical Problems: (1) Fall at home Status: Acute (2) Generalized weakness Status: Acute (3) Urinary tract infection Status: Acute Brief Hospital Course Ms. Horne is a 72 old [sex] who presented with [FALL ] CONDITION AT DISCHARGE: Improved Discharge Medications Current Medications Sodium Chloride 1,000 ml @ 1,000 mls/hr 1X ONCE IV Last administered on at 14:03; Start 02/08/18 at 13:15; Stop 02/08/18 at 14:14; Status DC Ceftriaxone Sodium 1 gm/ Dextrose 50 ml @ 100 mls/hr Q24H IV ; Start 02/08/18 at 13:15; Status UNV Ceftriaxone Sodium 50 ml @ 100 mls/hr 1X ONCE IV Last administered on at 14:20; Start 02/08/18 at 13:30; Stop 02/08/18 at 13:59; Status DC Ceftriaxone Sodium (Rocephin) 1 gm Q24H IVP Last administered on 02/10/18at 14: 19; Start 02/09/18 at 14:00 Acetaminophen/ Hydrocodone Bitart (Lortab 5/325) 1 tab PRN Q4HRS PRN PO MODERATE - SEVERE PAIN Last administered on 02/11/18at 06:03; Start 02/08/18 at 19:45 Pharmacy Consult (C.diff Med Screen By Rx) 1 each 1X ONCE [facility] ; Start 02/08/18 at 19:45; Stop 02/08/18 at 19:46; Status Cancel Amlodipine Besylate (Norvasc) 5 mg DAILY PO Last administered on 02/11/18at 08: 42; Start 02/09/18 at 09:00 Duloxetine HCl (Cymbalta) 30 mg DAILY PO Last administered on 02/11/18at 08:42; Start 02/09/18 at 09:00 Sumatriptan Succinate (Imitrex) 100 mg PRN DAILY PRN PO MIGRAINE HEADACHE; Start 02/08/18 at 20:30 Tramadol HCl (Ultram) 50 mg Q4HRS PRN PO MILD PAIN Last administered on at 20:39; Start 02/08/18 at 20:30 Non-Formulary Medication (Balsam [place]/ [place] Oil (Circuderm Emollient)) 3 gm BID TP ; Start 02/08/18 at 21:00; Status UNV Megestrol Acetate (Megace) 40 mg BID PO Last administered on 02/11/18at 08:42; Start 02/08/18 at 21:00 Mirtazapine (Remeron) 15 mg QHS PO Last administered on 02/10/18at 20:36; Start 02/08/18 at 21:00 Nystatin (Mycostatin) 1 mandeep TID TP Last administered on 02/11/18at 08:43; Start 02/08/18 at 21:00 Ondansetron HCl (Zofran Odt) 8 mg PRN Q8HRS PRN PO NAUSEA/VOMITING Last administered on 02/09/18at 13:23; Start 02/08/18 at 20:30 Lactobacillus Rhamnosus (Culturelle) 1 cap BID PO Last administered on at 10:58; Start 02/09/18 at 09:00; Stop 02/09/18 at 11:18; Status DC Acetaminophen (Tylenol) 650 mg PRN Q6HRS PRN PO FEVER; Start 02/10/18 at 10:45 Ondansetron HCl (Zofran) 4 mg PRN Q6HRS PRN IV NAUSEA/VOMITING; Start 02/10/18 at 10:45 Docusate Sodium (Colace) 100 mg PRN DAILY PRN PO CONSTIPATION; Start 02/10/18 at 10:45 Enoxaparin Sodium (Lovenox 40mg Syringe) 40 mg Q24H SQ Last administered on at 14:19; Start 02/10/18 at 13:00 Lactobacillus Rhamnosus (Culturelle) 1 cap BID PO ; Start 02/10/18 at 21:00; Status Cancel Active Scripts Active Reported Sumatriptan Succinate 100 Mg Tablet 100 Mg PO PRN DAILY PRN Zofran Odt (Ondansetron) 8 Mg Tab.rapdis 1 Tab PO Q8HRS Mirtazapine 15 Mg Tablet 1 Tab PO QHS Megestrol Acetate 40 Mg Tablet 40 Mg PO BID Circuderm Emollient (Balsam [place] Oil) 3 Gm Oint.pack 3 Gm TP BID Tramadol Hcl 50 Mg Tablet 50 Mg PO Q4HRS PRN Nystatin 15 Gm Cream..g. 1 Mandeep TP TID Erythromycin (Erythromycin Base) 250 Mg Capsule.dr 250 Mg PO TIDBFRMEAL Norvasc (Amlodipine Besylate) 5 Mg Tablet 5 Mg PO DAILY Cymbalta (Duloxetine Hcl) 30 Mg Capsule.dr 30 Mg PO DAILY Sinemet 25-100 Mg Tablet (Carbidopa/Levodopa) 1 Each Tablet 1 Tab PO 5XDAY Vital Signs Vital Signs Date Time Temp Pulse Resp B/P (MAP) Pulse Ox O2 Delivery O2 Flow Rate FiO2 02/11/18 11:00 99.1 100 18 144/86 (105) 98 Room Air 99.1 Labs Laboratory Tests Test 02/11/18 05:00 White Blood Count 9.4 x10^3/uL (4.0-11.0) Red Blood Count 3.17 x10^6/uL (3.50-5.40) Hemoglobin 9.4 g/dL (12.0-15.5) Hematocrit 27.4 % (36.0-47.0) Mean Corpuscular Volume 87 fL (79-100) Mean Corpuscular Hemoglobin 30 pg (25-35) Mean Corpuscular Hemoglobin Concent 34 g/dL (31-37) Red Cell Distribution Width 18.5 % (11.5-14.5) Platelet Count 367 x10^3/uL (140-400) Neutrophils (%) (Auto) 62 % (31-73) Lymphocytes (%) (Auto) 22 % (24-48) Monocytes (%) (Auto) 10 % (0-9) Eosinophils (%) (Auto) 5 % (0-3) Basophils (%) (Auto) 1 % (0-3) Neutrophils # (Auto) 5.9 x10^3uL (1.8-7.7) Lymphocytes # (Auto) 2.1 x10^3/uL (1.0-4.8) Monocytes # (Auto) 0.9 x10^3/uL (0.0-1.1) Eosinophils # (Auto) 0.5 x10^3/uL (0.0-0.7) Basophils # (Auto) 0.1 x10^3/uL (0.0-0.2) Sodium Level 140 mmol/L (136-145) Potassium Level 3.4 mmol/L (3.5-5.1) Chloride Level 108 mmol/L (98-107) Carbon Dioxide Level 23 mmol/L (21-32) Anion Gap 9 (6-14) Blood Urea Nitrogen 10 mg/dL (7-20) Creatinine 0.9 mg/dL (0.6-1.0) Estimated GFR (Cockcroft-Gault) 61.7 Glucose Level 81 mg/dL (70-99) Calcium Level 9.0 mg/dL (8.5-10.1) Laboratory Tests Test 02/11/18 05:00 White Blood Count 9.4 x10^3/uL (4.0-11.0) Red Blood Count 3.17 x10^6/uL (3.50-5.40) Hemoglobin 9.4 g/dL (12.0-15.5) Hematocrit 27.4 % (36.0-47.0) Mean Corpuscular Volume 87 fL (79-100) Mean Corpuscular Hemoglobin 30 pg (25-35) Mean Corpuscular Hemoglobin Concent 34 g/dL (31-37) Red Cell Distribution Width 18.5 % (11.5-14.5) Platelet Count 367 x10^3/uL (140-400) Neutrophils (%) (Auto) 62 % (31-73) Lymphocytes (%) (Auto) 22 % (24-48) Monocytes (%) (Auto) 10 % (0-9) Eosinophils (%) (Auto) 5 % (0-3) Basophils (%) (Auto) 1 % (0-3) Neutrophils # (Auto) 5.9 x10^3uL (1.8-7.7) Lymphocytes # (Auto) 2.1 x10^3/uL (1.0-4.8) Monocytes # (Auto) 0.9 x10^3/uL (0.0-1.1) Eosinophils # (Auto) 0.5 x10^3/uL (0.0-0.7) Basophils # (Auto) 0.1 x10^3/uL (0.0-0.2) Sodium Level 140 mmol/L (136-145) Potassium Level 3.4 mmol/L (3.5-5.1) Chloride Level 108 mmol/L (98-107) Carbon Dioxide Level 23 mmol/L (21-32) Anion Gap 9 (6-14) Blood Urea Nitrogen 10 mg/dL (7-20) Creatinine 0.9 mg/dL (0.6-1.0) Estimated GFR (Cockcroft-Gault) 61.7 Glucose Level 81 mg/dL (70-99) Calcium Level 9.0 mg/dL (8.5-10.1) Allergies Allergies Coded Allergies Type Severity Reaction Last Updated Verified codeine Allergy Intermediate Hives 05/02/16 Yes Disposition/Orders: D/C to Home w/ HH Patient Instructions D/C PLANNING 32 MIN LIBERTY MUNGUIA MD Feb 11, 2018 13:29
--- NOTE | 2018-02-11 13:30 | DISCH ---
DISCHARGE WITH HOME HEALTH DISCHARGE INFORMATION: Final Diagnosis: Problems Medical Problems: (1) Fall at home Status: Acute (2) Generalized weakness Status: Acute (3) Urinary tract infection Status: Acute Condition on Discharge: Guarded CODE STATUS: Code Status: DNR/DNI HOME HEALTH: Face to Face: I certify this patient is under my care and that I, or a nurse practitioner or physician's optometrist assistant working with me, had a face to face encounter that meets the physician face to face encounter requirements with this patient on []. Physical Therapy For: Evalulation/Treatment Occupational Therapy For: Evaluation/Treatment Speech Language Pathology For: Evaluation/Treatment Home Health Aide For: Self-care CONFERENCE AND EVENT ORGANISER For: Community Resources Pt Meets Homebound Status: Unsteady balance w/ amb, POST DISCHARGE ORDERS: Activity Instructions for Disc: Activity as tolerated Weight Bearing Status after Di: As tolerated Bathing Instructions: Shower-keep dressing dry, No Tub Bath until see Dr. PLUNKETT AFTER DISCHARGE: Cardiac Wound/Incision Care: Keep wound/cast CDI, Change dressing CHECKS AFTER DISCHARGE: Checks after discharge: Check blood press - daily, Check your Temp as needed FOLLOW-UP: Follow up with: PCP IN 3-5 DAYS TREATMENT/EQUIPMENT ORDERS: Adaptive Equipment Issued: None, Front wheeled walker CERTIFICATION STATEMENT: Certification Statement: Certification Statement: Based on the above finding, I certify that this patient is confined to the home and needs intermittent snf care, physical therapy and/or speech therapy, or continues to need occupational therapy.~ This patient is under my care, and I have initiated the establishment of the plan of care.~ This patient will be followed by myself or a community physician who will periodically review the plan of care. Home Meds Reported Medications Sumatriptan Succinate (SUMATRIPTAN SUCCINATE) 100 Mg Tablet, 100 MG PO PRN DAILY PRN for MIGRAINE HEADACHE, TAB 02/08/18 Ondansetron (ZOFRAN ODT) 8 Mg Tab.rapdis, 1 TAB PO Q8HRS, #30 TAB 02/08/18 Mirtazapine (MIRTAZAPINE) 15 Mg Tablet, 1 TAB PO QHS, #30 TAB 3 Refills 02/08/18 Megestrol Acetate (MEGESTROL ACETATE) 40 Mg Tablet, 40 MG PO BID, TAB 02/08/18 Balsam [place] Oil (CIRCUDERM EMOLLIENT) 3 Gm Oint.pack, 3 GM TP BID, MISC 02/08/18 Tramadol Hcl (TRAMADOL HCL) 50 Mg Tablet, 50 MG PO Q4HRS PRN for PAIN, TAB 02/08/18 Nystatin (NYSTATIN) 15 Gm Cream..g., 1 AGGIE TP TID, #30 GM 02/08/18 Erythromycin Base (ERYTHROMYCIN) 250 Mg Capsule.dr, 250 MG PO TIDBFRMEAL, CAP 02/08/18 Amlodipine Besylate (NORVASC) 5 Mg Tablet, 5 MG PO DAILY, TAB 11/14/17 Duloxetine Hcl (CYMBALTA) 30 Mg Capsule.dr, 30 MG PO DAILY, CAP 11/14/17 Carbidopa/Levodopa (SINEMET 25-100 MG TABLET) 1 Each Tablet, 1 TAB PO 5XDAY, TAB 12/30/16 LIBERTY MUNGUIA MD Feb 11, 2018 13:30
[2018-02-11] MEDS: ENOXAPARIN 40 MG/0.4 ML SYRINGE. SQ SCH (14:23)
[2018-02-11] MEDS: cefTRIAXone IV Push 1 GM VIAL. IVP SCH (14:25)
== END 2018-02-11 17:23 | disposition home health service (06) | DRG 871 ==
LOC: ER 12:23 → 5 NORTH 13:40
PROVIDERS: ADMIT Internal Medicine; ATTEND Internal Medicine
PROC: 02HV33Z Insertion of Infusion Device into Superior Vena Cava, Percutaneous Approach (ICD-10-PCS; principal; 2018-02-08)
DX: A41.9 Sepsis, unspecified organism (principal); E43 Unspecified severe protein-calorie malnutrition; N39.0 Urinary tract infection, site not specified; Z68.1 Body mass index [BMI] 19.9 or less, adult; F03.90 Unspecified dementia, unspecified severity, without behavioral disturbance, psychotic disturbance, mood disturbance, and anxiety; F32.9 Major depressive disorder, single episode, unspecified; F41.9 Anxiety disorder, unspecified; G25.81 Restless legs syndrome; G43.909 Migraine, unspecified, not intractable, without status migrainosus; K21.9 Gastro-esophageal reflux disease without esophagitis; M43.12 Spondylolisthesis, cervical region; W18.39XA Other fall on same level, initial encounter; M48.02 Spinal stenosis, cervical region; I10 Essential (primary) hypertension; Z83.3 Family history of diabetes mellitus; Y93.89 Activity, other specified; Y92.098 Other place in other non-institutional residence as the place of occurrence of the external cause; Y99.8 Other external cause status; Z86.73 Personal history of transient ischemic attack (TIA), and cerebral infarction without residual deficits; Z90.710 Acquired absence of both cervix and uterus; Z90.49 Acquired absence of other specified parts of digestive tract; Z88.5 Allergy status to narcotic agent; Z79.899 Other long term (current) drug therapy
CPT/HCPCS: 36415; 36569; 70450; 71045; 72125; 73502; 80048; 80053; 81001; 82550; 83605; 83735; 83880; 84484; 85007; 85025; 85610; 85730; 87040; 87086; 93005; 96365; J0690; J0696; J1650; J7030; Q0162; 97110; 99285-25

== ENCOUNTER 2018-07-14 14:29 | Inpatient (IN) | payer MEDICARE, BC ==
[~2018-07-14] VITALS: Ht 160 cm; Wt 51.3 kg
[~2018-07-14 14:29] MED LIST changes: +BALS3OIN TP; +CLON1TAB11 PO; -CLON1TAB4 PO; +ERYT250C8 PO; -GABA600T2 PO; +GABA600T7 PO; +HYDR-3135 PO; -HYDR-963 PO; +LACT1CAP6 PO; +MEGE40TA PO; +MIRT15TA3 PO; +NYST15CR TP; +ONDA8TAB12 PO; -OXYC-328 PO; +OXYC1TAB22 PO; +ROPI1TAB PO; +SERT50TA8 PO; +SUMA100T4 PO; +TRAM50TA PO
[2018-07-14] MEDS ORDERED: VANCOMYCIN 1.25 GM in IV NORMAL SALINE 250ML 250 ML IV ONE (15:00)
[2018-07-14] MEDS ORDERED: PIPERACILLIN/TAZOBACTAM 4.5 GM in IV NORMAL SALINE 100ML 100 ML IV ONE (15:00)
--- NOTE | 2018-07-14 15:21 | PHYS DOC ---
Past Medical History Past Medical History: Anemia, Anxiety, CVA, Dementia, Depression, GERD, Hypertension, Migraines, Renal Failure, UTI, Unknown, Other Additional Past Medical Histor: restless leg syndrome, overdose, encephalopathy , dialysis Past Surgical History: Cholecystectomy, Hysterectomy, Tonsillectomy, Other Additional Past Surgical Histo: hernia repair, esophageal stretching, dialysis access R chest Alcohol Use: None Drug Use: None Adult General Chief Complaint Chief Complaint: FEVER HPI HPI Patient is a 72 year old female with a history of CVA, hypertension anxiety, depression, end-stage renal disease on dialysis Saturday, Saturday, , last dialyzed on Saturday Patient presents to the ED today to be evaluated for fever, decreased appetite, fever, decreased energy/weakness, symptoms began 3 days ago. Review of Systems Review of Systems Constitutional: Reports fever, decreased appetite, decreased energy Eyes: Denies change in visual acuity, redness, or eye pain [] HENT: Denies nasal congestion or sore throat [] Respiratory: Denies cough or shortness of breath [] Cardiovascular: No additional information not addressed in HPI [] GI: Denies abdominal pain, nausea, vomiting, bloody stools or diarrhea [] : Denies dysuria or hematuria [] Musculoskeletal: Denies back pain or joint pain [] Integument: Denies rash or skin lesions [] Neurologic: Denies headache, focal weakness or sensory changes [] All other systems were reviewed and found to be within normal limits, except as documented in this note. Current Medications Current Medications Current Medications Medications (Trade) Dose Ordered Sig/Jaswinder Start Time Stop Time Status Last Admin Dose Admin Acetaminophen (Tylenol) 650 mg PRN Q4HRS PRN 07/14/18 17:15 07/15/18 17:14 UNV Morphine Sulfate (Morphine Sulfate) 2 mg PRN Q2HR PRN 07/14/18 17:15 07/15/18 17:14 UNV Ondansetron HCl (Zofran) 4 mg PRN Q8HRS PRN 07/14/18 17:15 07/15/18 17:14 UNV Piperacillin Sod/ Tazobactam Sod 4.5 gm/Sodium Chloride 100 ml @ 200 mls/hr 1X ONCE 07/14/18 15:00 07/14/18 15:29 DC 07/14/18 15:58 200 MLS/HR Vancomycin HCl (Vanco Per Pharmacy) 1 each PRN DAILY PRN 07/14/18 14:45 Vancomycin HCl 1.25 gm/Sodium Chloride 250 ml @ 166.667 mls/hr 1X ONCE 07/14/18 15:00 07/14/18 16:29 DC Allergies Allergies Allergies Coded Allergies Type Severity Reaction Last Updated Verified codeine Allergy Intermediate Hives 05/02/16 Yes Physical Exam Physical Exam Constitutional: Thin pale appearing patient, no acute distress, non-toxic appearance. [] HENT: Normocephalic, atraumatic, bilateral external ears normal, oropharynx moist, no oral exudates, nose normal. Mucous membranes are dry Eyes: PERRLA, EOMI, conjunctiva normal, no discharge. [] Neck: Normal range of motion, no tenderness, supple, no stridor. [] Cardiovascular:Heart rate regular rhythm, no murmur Right upper chest with dialysis catheter. No redness on the catheter site. Lungs & Thorax: Bilateral breath sounds clear to auscultation [] Abdomen: Bowel sounds normal, soft, no tenderness, no masses, no pulsatile masses. [] Skin: Warm, very dry, no erythema, no rash. [] Back: No tenderness, no CVA tenderness. [] Extremities: Bilateral shoulders appears slightly rotated forward. No tenderness , no cyanosis, no clubbing, ROM intact, no edema. [] Neurologic: Alert and oriented X 3, normal motor function, normal sensory function, no focal deficits noted. Cranial nerves II through XII intact Psychologic: Affect normal, judgement normal, mood normal. [] Current Patient Data Vital Signs Vital Signs Date Time Temp Pulse Resp B/P (MAP) Pulse Ox O2 Delivery O2 Flow Rate FiO2 07/14/18 16:39 76 16 120/66 (84) 99 Room Air 07/14/18 14:43 98.7 98.7 Lab Values Laboratory Tests Test 07/14/18 15:05 07/14/18 15:15 White Blood Count 16.6 x10^3/uL (4.0-11.0) H Red Blood Count 2.18 x10^6/uL (3.50-5.40) L Hemoglobin 5.6 g/dL (12.0-15.5) *L Hematocrit 18.1 % (36.0-47.0) *L Mean Corpuscular Volume 83 fL (79-100) Mean Corpuscular Hemoglobin 26 pg (25-35) Mean Corpuscular Hemoglobin Concent 31 g/dL (31-37) Red Cell Distribution Width 19.2 % (11.5-14.5) H Platelet Count 366 x10^3/uL (140-400) Neutrophils (%) (Auto) 88 % (31-73) H Lymphocytes (%) (Auto) 7 % (24-48) L Monocytes (%) (Auto) 5 % (0-9) Eosinophils (%) (Auto) 0 % (0-3) Basophils (%) (Auto) 0 % (0-3) Neutrophils # (Auto) 14.5 x10^3uL (1.8-7.7) H Lymphocytes # (Auto) 1.2 x10^3/uL (1.0-4.8) Monocytes # (Auto) 0.8 x10^3/uL (0.0-1.1) Eosinophils # (Auto) 0.1 x10^3/uL (0.0-0.7) Basophils # (Auto) 0.0 x10^3/uL (0.0-0.2) Segmented Neutrophils % 85 % (35-66) H Band Neutrophils % 8 % (0-9) Lymphocytes % 4 % (24-48) L Monocytes % 3 % (0-10) Platelet Estimate Adequate (ADEQUATE) Polychromasia Slight Poikilocytosis Slight Anisocytosis Slight Prothrombin Time 17.2 SEC (11.7-14.0) H Prothrombin Time INR 1.4 (0.8-1.1) H PTT 47 SEC (24-38) H Urine Collection Type U cath Urine Color Yellow Urine Clarity Clear Urine pH 8.0 Urine Specific [place]ora 1.015 Urine Protein 100 mg/dL (NEG-TRACE) Urine Glucose (UA) Negative mg/dL (NEG) Urine Ketones (Stick) Negative mg/dL (NEG) Urine Blood Negative (NEG) Urine Nitrite Negative (NEG) Urine Bilirubin Negative (NEG) Urine Urobilinogen Dipstick 1.0 mg/dL (0.2 mg/dL) Urine Leukocyte Esterase Trace (NEG) Urine RBC 0 /HPF (0-2) Urine WBC 5-10 /HPF (0-4) Urine Bacteria 0 /HPF (0-FEW) Urine Hyaline Casts Moderate /HPF Urine Mucus Mod /LPF Urine Yeast Present /HPF Sodium Level 139 mmol/L (136-145) Potassium Level 3.3 mmol/L (3.5-5.1) L Chloride Level 102 mmol/L (98-107) Carbon Dioxide Level 28 mmol/L (21-32) Anion Gap 9 (6-14) Blood Urea Nitrogen 29 mg/dL (7-20) H Creatinine 3.8 mg/dL (0.6-1.0) H Estimated GFR (Cockcroft-Gault) 11.7 BUN/Creatinine Ratio 8 (6-20) Glucose Level 91 mg/dL (70-99) Lactic Acid Level 1.3 mmol/L (0.4-2.0) Calcium Level 8.3 mg/dL (8.5-10.1) L Magnesium Level 1.7 mg/dL (1.8-2.4) L Total Bilirubin 0.4 mg/dL (0.2-1.0) Aspartate Amino Transferase (AST) 26 U/L (15-37) Alanine Aminotransferase (ALT) 12 U/L (14-59) L Alkaline Phosphatase 100 U/L (46-116) Creatine Kinase 9 U/L (26-192) L Creatine Kinase MB (Mass) < 0.5 ng/mL (0.0-3.6) Creatine Kinase MB Relative Index 5.6 % (0-4) H Troponin I Quantitative < 0.017 ng/mL (0.000-0.055) PN-Tqm-O-Type Natriuretic Peptide > 04320 pg/mL (0-124) H Total Protein 6.1 g/dL (6.4-8.2) L Albumin 1.3 g/dL (3.4-5.0) L Albumin/Globulin Ratio 0.3 (1.0-1.7) L Lipase 31 U/L (73-393) L Thyroid Stimulating Hormone (TSH) 1.438 uIU/mL (0.358-3.74) Urine Opiates Screen Neg (NEG) Urine Methadone Screen Neg (NEG) Urine Barbiturates Neg (NEG) Urine Phencyclidine Screen Neg (NEG) Urine Amphetamine/Methamphetamine Neg (NEG) Urine Benzodiazepines Screen Neg (NEG) Urine Cocaine Screen Neg (NEG) Urine Cannabinoids Screen Neg (NEG) Urine Ethyl Alcohol Neg (NEG) Influenza Type A Antigen Negative (NEGATIVE) Influenza Type B Antigen Negative (NEGATIVE) POC Troponin I 0.02 ng/ml (<0.08) Laboratory Tests 07/14/18 15:05 Laboratory Tests 07/14/18 15:05 EKG EKG Interpreted by Dr. Flores sinus rhythm heart 80 no STEMI[] Radiology/Procedures Radiology/Procedures [] Course & Med Decision Making Course & Med Decision Making Pertinent Labs and Imaging studies reviewed. (See chart for details) This is a 72-year-old female hx of ESRD patient presenting to the ED today with fever decreased appetite, decreased energy/weakness, symptoms for 3 days. Patient was started on the sepsis protocol on a number to the ED. Temperature on arrival to the ED 98.7, heart rate 82, respiration 18 on room air, blood pressure 109/60, O2 sats 98% on room air. No fluids were given considering her chronic kidney disease CBC with a WBC, hemoglobin 5.6, hematocrit 18.1, patient has no rectal bleeding , no bloody stools, likely from chronic kidney disease. One unit of blood ordered. CMP with potassium of 3.3 creatinine 3.8, BUN 29, patient was dialyzed yesterday. Lactic is normal. Negative for influenza A or B. Chest x-ray negative for pneumonia. Urine noted for trace amount of leukocytes. Spoke with Dr. Izquierdo who accepted patient for admission Routine consult placed for php website developer Sara Disclaimer Sara Disclaimer This electronic medical record was generated, in whole or in part, using a voice recognition dictation system. Departure Departure Impression: Primary Impression: Fever Additional Impressions: End stage renal disease Generalized weakness Anemia Disposition: ADMITTED INPATIENT Condition: STABLE Referrals: MANNY LAURENT MD (PCP) Problem Qualifiers Primary Impression: Fever Fever type: unspecified Qualified Codes: R50.9 - Fever, unspecified Additional Impressions: Anemia Anemia type: unspecified type Qualified Codes: D64.9 - Anemia, unspecified KATHY BARCLAY APRN Jul 14, 2018 15:21
[2018-07-14 15:27] LABS: BILIRUBIN,URINE NEGATIVE (NEG); CLARITY,URINE CLEAR; COLOR,URINE YELLOW; NITRITE,URINE NEGATIVE (NEG); PROTEIN,URINE 100 mg/dL (NEG-TRACE)
[2018-07-14 15:28] LABS: BASO % 0 % (0-3); EOS # 0.1 x10^3/uL (0.0-0.7); EOS % 0 % (0-3); LYMPH # 1.2 x10^3/uL (1.0-4.8); LYMPH % 7 % (24-48); MEAN CORPUSCULAR HEMOGLOBIN 26 pg (25-35); MEAN CORPUSCULAR HGB CONC 31 g/dL (31-37); MEAN CORPUSCULAR VOLUME 83 fL (79-100); MONO # 0.8 x10^3/uL (0.0-1.1); MONO % 5 % (0-9); NEUT # 14.5 x10^3uL (1.8-7.7); NEUT % 88 % (31-73); PLATELET COUNT 366 x10^3/uL (140-400); RED BLOOD COUNT 2.18 x10^6/uL (3.50-5.40); RED CELL DISTRIBUTION WIDTH 19.2 % (11.5-14.5); WHITE BLOOD COUNT 16.6 x10^3/uL (4.0-11.0)
[2018-07-14 15:34] LABS: HEMOGLOBIN 5.6 g/dL (12.0-15.5)
[2018-07-14 15:35] LABS: AMPHETAMINE/METHAMPHETAMINE NEG (NEG); BARBITURATES NEG (NEG); BENZODIAZEPINES NEG (NEG); CANNABINOIDS NEG (NEG); COCAINE NEG (NEG); HEMATOCRIT 18.1 % (36.0-47.0); METHADONE NEG (NEG); OPIATES NEG (NEG); PHENCYCLIDINE NEG (NEG); PROTHROMBIN TIME PATIENT 17.2 SEC (11.7-14.0)
[2018-07-14 15:43] LABS: CALCIUM 8.3 mg/dL (8.5-10.1); CREATININE 3.8 mg/dL (0.6-1.0); GFR 11.7; POTASSIUM 3.3 mmol/L (3.5-5.1)
[2018-07-14 15:45] LABS: HYALINE CASTS, URINE MODERATE /HPF
[2018-07-14 15:46] LABS: BACTERIA,URINE 0 /HPF (0-FEW); RBC,URINE 0 /HPF (0-2); YEAST,URINE PRESENT /HPF
[2018-07-14 15:48] LABS: ALBUMIN 1.3 g/dL (3.4-5.0); ALBUMIN/GLOBULIN RATIO 0.3 (1.0-1.7); MAGNESIUM 1.7 mg/dL (1.8-2.4); TOTAL BILIRUBIN 0.4 mg/dL (0.2-1.0); TOTAL PROTEIN 6.1 g/dL (6.4-8.2)
--- NOTE | 2018-07-14 15:54 | RAD ---
CT HEAD INDICATION: Altered mental status COMPARISON: 06/05/2018 Exposure: One or more of the following individualized dose reduction techniques were utilized for this examination: 1. Automated exposure control 2. Adjustment of the mA and/or kV according to patient size 3. Use of iterative reconstruction technique TECHNIQUE: 5 mm contiguous axial images were obtained from the skull base to the vertex FINDINGS: Mild bilateral periventricular white matter hypodensities likely chronic small vessel ischemic disease. No evidence of acute intracranial hemorrhage. No extra-axial fluid collections. No mass effect or midline shift. Ventricular size is appropriate. Basal cisterns are patent. No fractures identified.Horowitz-white differentiation is preserved.Globes and orbits are within normal limits. Paranasal sinuses and mastoid air cells are clear. IMPRESSION: No acute intracranial findings. Electronically signed by: Evan Lazo MD (07/14/2018 3:51 PM) [place] [id number]
[2018-07-14 15:58] LABS: CREATINE KINASE 9 U/L (26-192)
[2018-07-14 15:59] LABS: INFLUENZA A PATIENT NEGATIVE (NEGATIVE); INFLUENZA B PATIENT NEGATIVE (NEGATIVE)
[2018-07-14] MEDS ORDERED: SERT100T PO (16:08)
[2018-07-14] MEDS ORDERED: CEPH500C PO (16:08)
--- NOTE | 2018-07-14 16:13 | RAD ---
EXAM: CHEST 1 VIEW History: Fever COMPARISON: 02/09/2018 TECHNIQUE: Single portable radiograph of the chest FINDINGS: The cardiac silhouette is unremarkable. Right-sided dialysis catheter in place. Mild prominent appearing bilateral digital lung markings likely mild congestive changes. Minimal atelectasis left lung base. IMPRESSION: Minimal prominent appearing bilateral interstitial lung markings likely minimal congestive changes. Electronically signed by: Evan Lazo MD (07/14/2018 4:10 PM) [place] [id number]
--- NOTE | 2018-07-14 16:19 | RAD ---
Examination: 3 views of the bilateral shoulders HISTORY: History of fever, bilateral shoulder deformity COMPARISON: None available FINDINGS: The humerus head is within the glenoid bilaterally. Mild joint space loss identified in the bilateral acromioclavicular joints, glenohumeral joints likely degeneration. There is no acute fracture identified. IMPRESSION: Mild degenerative changes bilateral shoulder joints and the acromioclavicular joint. Electronically signed by: Evan Lazo MD (07/14/2018 4:16 PM) [place] [id number]
[2018-07-14 16:54] LABS: % BANDS 8 % (0-9); % LYMPHS 4 % (24-48); % MONOS 3 % (0-10); % SEGS 85 % (35-66); PLT ESTIMATE ADEQUATE (ADEQUATE)
[2018-07-14 17:00] LABS: ANISOCYTOSIS SLIGHT; POIKILOCYTOSIS SLIGHT
[2018-07-14 17:01] LABS: POLYCHROMASIA SLIGHT
[2018-07-14] MEDS ORDERED: ACETAMINOPHEN 325 MG TABLET. PO PRN (17:15)
[2018-07-14] MEDS ORDERED: MORPHINE SULFATE 4 MG/ML VIAL. IV PRN (17:15)
[2018-07-14] MEDS ORDERED: ONDANSETRON PF 4 MG/2 ML VIAL. IV PRN (17:15)
[2018-07-14 19:00] VITALS: BP 115/69
[2018-07-14] MEDS: VANCOMYCIN PER PHARMACY MC PRN ×2 (19:18→19:24)
--- NOTE | 2018-07-14 19:23 | NUR ---
Pharmacy Vancomycin Dosing Note S:Consulted to monitor and dose vancomycin started 07/14/18. O:TYLER GUTIERREZ is a 72 year old F with HCAP . Height: 5 feet, 3 inches Weight: 47.501015 kg [place] Body Weight: 52.40 Adjusted Body Weight: 50.24 Dosing Weight: Actual Other Antibiotics: ZOSYN X1 07/14 LABS: Last BUN: 29 Last Creatinine: 3.8 Creatinine Clearance: ESRD HD TTS mL/min Last WBC: 16.6 Last Procalcitonin: N/A, ESRD Tmax (past 24 hours): 98.7 Microbiology: 07/14 PENDING I/O: - Drug Levels: Last level: on at Last dose given 07/14/18 at 1810 Vancomycin Dosing: Loading Dose: x1 Dosing Weight: Actual Target Trough: 15-20 A: Based on: WEIGHT, HD STATUS AND SCHEDULE, P: 1. Initiate Vancomycin 1250 mg IV One Time, 2. Follow up Random level on 07/15/18 at 0600 3. Pharmacy will continue to monitor, follow and adjust therapy as needed. ALEN WAGONER [facility], 07/14/18 [id number]
[2018-07-14] MEDS ORDERED: epogen (20:42)
[2018-07-14] MEDS ORDERED: FOLI1TAB30 PO (20:42)
[2018-07-14] MEDS ORDERED: MIRT15TA3 PO (20:42)
[2018-07-14] MEDS ORDERED: hectorol (20:42)
--- NOTE | 2018-07-14 21:34 | PDOC1 ---
History and Physical Date of Admission Date of Admission DATE: 07/14/18 TIME: 21:33 Source Source: Chart review, Patient History of Present Illness History of Present Illness Ms. Horne is a 72 year old female with a history of CVA, hypertension anxiety, depression, end-stage renal disease on dialysis Saturday, Saturday, , last dialyzed on Saturday Patient presents to the ED today to be evaluated for fever, decreased appetite, fever, decreased energy/weakness, symptoms began 3 days ago. Past Medical History Cardiovascular: HTN CENTRAL NERVOUS SYSTEM: CVA, Other GI: Constipation, GI bleed, Peptic Ulcer disease Heme/Onc: Anemia NOS Hepatobiliary: No pertinent hx Psych: Anxiety, Depression Renal/: No pertinent hx Past Surgical History Past Surgical History: Cholecystectomy, Hernia Repair, Tonsillectomy, Hysterectomy, Other Family History Family History: Heart Disease Social History Smoke: Quit ALCOHOL: occassional Drugs: None Current Problem List Problem List Problems Medical Problems: (1) End stage renal disease Status: Acute (2) Generalized weakness Status: Acute Current Medications Current Medications Current Medications Piperacillin Sod/ Tazobactam Sod 4.5 gm/Sodium Chloride 100 ml @ 200 mls/hr 1X ONCE IV Last administered on 07/14/18at 15:58; Start 07/14/18 at 15:00; Stop 07/14/18 at 15:29; Status DC Vancomycin HCl (Vanco Per Pharmacy) 1 each PRN DAILY PRN MC SEE COMMENTS Last administered on 07/14/18at 19:24; Start 07/14/18 at 14:45 Vancomycin HCl 1.25 gm/Sodium Chloride 250 ml @ 166.667 mls/hr 1X ONCE IV Last administered on 07/14/18at 18:10; Start 07/14/18 at 15:00; Stop 07/14/18 at 16:29; Status DC Ondansetron HCl (Zofran) 4 mg PRN Q8HRS PRN IV NAUSEA/VOMITING; Start 07/14/18 at 17:15; Stop 07/15/18 at 17:14 Morphine Sulfate (Morphine Sulfate) 2 mg PRN Q2HR PRN IV PAIN; Start 07/14/18 at 17:15; Stop 07/15/18 at 17:14 Acetaminophen (Tylenol) 650 mg PRN Q4HRS PRN PO FEVER; Start 07/14/18 at 17:15 ; Stop 07/15/18 at 17:14 Vancomycin HCl (Vancomycin Random Level) 1 each 1X ONCE MC ; Start 07/15/18 at 06:00; Stop 07/15/18 at 06:01 Vitamin B Complex/ Vitamin C (Dinorah-Ralph) 1 tab QPM PO ; Start 07/15/18 at 18:00 Megestrol Acetate (Megace) 40 mg BID PO ; Start 07/15/18 at 09:00 Non-Formulary Medication (Mirtazapine ) 1 tab QHS PO ; Start 07/15/18 at 21:00; Status UNV Non-Formulary Medication (Mirtazapine ) 1 tab QHS PO ; Start 07/15/18 at 21:00; Status UNV Non-Formulary Medication (Ropinirole Hcl (Requip)) 3 mg BID PO ; Start 07/15/18 at 09:00; Status UNV Sertraline HCl (Zoloft) 100 mg DAILY PO ; Start 07/15/18 at 09:00 Phytonadione (Mephyton Oral Soln) 5 mg 1X ONCE PO ; Start 07/14/18 at 21:30; Stop 07/14/18 at 21:31; Status UNV Active Scripts Active Reported Dialyvite Tablet (Folic Acid/Vitamin B Comp W-C) 1 Each Tablet 1 Each PO QPM QPM @ 1900 [hectorol] QTUTHSA [epogen] QTUTHSA Mirtazapine 15 Mg Tablet 1 Tab PO QHS Zoloft (Sertraline Hcl) 100 Mg Tablet 1 Tab PO DAILY Requip (Ropinirole Hcl) 1 Mg Tablet 3 Mg PO BID Mirtazapine 15 Mg Tablet 1 Tab PO QHS Megestrol Acetate 40 Mg Tablet 40 Mg PO BID Allergies Allergies: Coded Allergies: codeine (Verified Allergy, Intermediate, Hives, 05/02/16) ROS Review of System weight loss General: YES: Fatigue, Malaise, Appetite PSYCHOLOGICAL ROS: YES: Concentration difficultie, Depression, Sleep disturbances Eyes: No Blurry vision, No Decreased vision, No Double vision, No Dry eyes, No Excessive tearing, No Eye Pain, No Itchy Eyes, No Loss of vision, No Photophobia , No Scotomata, No Uses contacts, No Uses glasses, No Other HEENT: No: Heacaches, Visual Changes, Hearing change, Nasal congestion, Nasal discharge, Oral lesions, Sinus pain, Sore Throat, Epistaxis, Sneezing, Snoring, Tinnitus, Vertigo, Vocal changes, Other Respiratory: No: Cough, Hemoptysis, Orthopnea, Pleuritic Pain, Shortness of breath, SOB with excertion, Sputum Changes, Stridor, Tachypnea, Wheezing, Other Cardiovascular: No Chest Pain, No Palpitations, No Orthopnea, No Paroxysmal Noc. Dyspnea, No Edema, No Lt Headedness, No Other Gastrointestinal: Yes Nausea, Yes Abdominal Pain; No Vomiting, No Diarrhea, No Constipation, No Melena, No Hematochezia, No Other Genitourinary: No Dysuria, No Frequency, No Incontinence, No Hematuria, No Retention, No Discharge, No Urgency, No Pain, No Flank Pain, No Other, No , No , No , No , No , No , No Musculoskeletal: Yes Muscular Weakness; No Gait Disturbance, No Joint Pain, No Joint Stiffness, No Joint Swelling, No Muscle Pain, No Pain In:, No Swelling In:, No Other Neurological: Yes Gait Disturbance, Yes Impaired Coord/balance, Yes Memory Loss ; No Behavorial Changes, No Bowel/Bladder ControlChng, No Confusion, No Dizziness, No Headaches, No Numbness/Tingling, No Seizures, No Speech Problems, No Tremors, No Visual Changes, No Weakness, No Other Skin: Yes Dry Skin; No Eczema, No Hair Changes, No Lumps, No Mole Changes, No Mottling, No Nail Changes, No Pruritus, No Rash, No Skin Lesion Changes, No Other, No Acne Physical Exam General: Cooperative, No acute distress, Other (poorly oriented) HEENT: Atraumatic Lungs: Clear to auscultation, Normal air movement Abdomen: Normal bowel sounds, Soft Extremities: No cyanosis, Normal pulses Skin: No rashes, No significant lesion Neuro: Normal speech Psych/Mental Status: Mood NL Vitals Vitals Vital Signs Date Time Temp Pulse Resp B/P (MAP) Pulse Ox O2 Delivery O2 Flow Rate FiO2 07/14/18 19:00 97.6 77 18 115/69 (84) 97 Room Air 97.6 Labs Labs Laboratory Tests Test 07/14/18 15:05 07/14/18 15:15 07/14/18 17:57 White Blood Count 16.6 x10^3/uL (4.0-11.0) Red Blood Count 2.18 x10^6/uL (3.50-5.40) Hemoglobin 5.6 g/dL (12.0-15.5) Hematocrit 18.1 % (36.0-47.0) Mean Corpuscular Volume 83 fL (79-100) Mean Corpuscular Hemoglobin 26 pg (25-35) Mean Corpuscular Hemoglobin Concent 31 g/dL (31-37) Red Cell Distribution Width 19.2 % (11.5-14.5) Platelet Count 366 x10^3/uL (140-400) Neutrophils (%) (Auto) 88 % (31-73) Lymphocytes (%) (Auto) 7 % (24-48) Monocytes (%) (Auto) 5 % (0-9) Eosinophils (%) (Auto) 0 % (0-3) Basophils (%) (Auto) 0 % (0-3) Neutrophils # (Auto) 14.5 x10^3uL (1.8-7.7) Lymphocytes # (Auto) 1.2 x10^3/uL (1.0-4.8) Monocytes # (Auto) 0.8 x10^3/uL (0.0-1.1) Eosinophils # (Auto) 0.1 x10^3/uL (0.0-0.7) Basophils # (Auto) 0.0 x10^3/uL (0.0-0.2) Segmented Neutrophils % 85 % (35-66) Band Neutrophils % 8 % (0-9) Lymphocytes % 4 % (24-48) Monocytes % 3 % (0-10) Platelet Estimate Adequate (ADEQUATE) Polychromasia Slight Poikilocytosis Slight Anisocytosis Slight Prothrombin Time 17.2 SEC (11.7-14.0) Prothromb Time International Ratio 1.4 (0.8-1.1) Activated Partial Thromboplast Time 47 SEC (24-38) Urine Collection Type U cath Urine Color Yellow Urine Clarity Clear Urine pH 8.0 Urine Specific [place] 1.015 Urine Protein 100 mg/dL (NEG-TRACE) Urine Glucose (UA) Negative mg/dL (NEG) Urine Ketones (Stick) Negative mg/dL (NEG) Urine Blood Negative (NEG) Urine Nitrite Negative (NEG) Urine Bilirubin Negative (NEG) Urine Urobilinogen Dipstick 1.0 mg/dL (0.2 mg/dL) Urine Leukocyte Esterase Trace (NEG) Urine RBC 0 /HPF (0-2) Urine WBC 5-10 /HPF (0-4) Urine Bacteria 0 /HPF (0-FEW) Urine Hyaline Casts Moderate /HPF Urine Mucus Mod /LPF Urine Yeast Present /HPF Sodium Level 139 mmol/L (136-145) Potassium Level 3.3 mmol/L (3.5-5.1) Chloride Level 102 mmol/L (98-107) Carbon Dioxide Level 28 mmol/L (21-32) Anion Gap 9 (6-14) Blood Urea Nitrogen 29 mg/dL (7-20) Creatinine 3.8 mg/dL (0.6-1.0) Estimated GFR (Cockcroft-Gault) 11.7 BUN/Creatinine Ratio 8 (6-20) Glucose Level 91 mg/dL (70-99) Lactic Acid Level 1.3 mmol/L (0.4-2.0) 1.0 mmol/L (0.4-2.0) Calcium Level 8.3 mg/dL (8.5-10.1) Magnesium Level 1.7 mg/dL (1.8-2.4) Total Bilirubin 0.4 mg/dL (0.2-1.0) Aspartate Amino Transf (AST/SGOT) 26 U/L (15-37) Alanine Aminotransferase (ALT/SGPT) 12 U/L (14-59) Alkaline Phosphatase 100 U/L (46-116) Creatine Kinase 9 U/L (26-192) Creatine Kinase MB (Mass) < 0.5 ng/mL (0.0-3.6) Creatine Kinase MB Relative Index 5.6 % (0-4) Troponin I Quantitative < 0.017 ng/mL (0.000-0.055) SI-Lea-C-Type Natriuretic Peptide > 20357 pg/mL (0-124) Total Protein 6.1 g/dL (6.4-8.2) Albumin 1.3 g/dL (3.4-5.0) Albumin/Globulin Ratio 0.3 (1.0-1.7) Lipase 31 U/L (73-393) Thyroid Stimulating Hormone (TSH) 1.438 uIU/mL (0.358-3.74) Urine Opiates Screen Neg (NEG) Urine Methadone Screen Neg (NEG) Urine Barbiturates Neg (NEG) Urine Phencyclidine Screen Neg (NEG) Urine Amphetamine/Methamphetamine Neg (NEG) Urine Benzodiazepines Screen Neg (NEG) Urine Cocaine Screen Neg (NEG) Urine Cannabinoids Screen Neg (NEG) Urine Ethyl Alcohol Neg (NEG) Influenza Type A Antigen Negative (NEGATIVE) Influenza Type B Antigen Negative (NEGATIVE) Bedside Troponin I 0.02 ng/ml (<0.08) Laboratory Tests Test 07/14/18 15:05 07/14/18 15:15 07/14/18 17:57 White Blood Count 16.6 x10^3/uL (4.0-11.0) Red Blood Count 2.18 x10^6/uL (3.50-5.40) Hemoglobin 5.6 g/dL (12.0-15.5) Hematocrit 18.1 % (36.0-47.0) Mean Corpuscular Volume 83 fL (79-100) Mean Corpuscular Hemoglobin 26 pg (25-35) Mean Corpuscular Hemoglobin Concent 31 g/dL (31-37) Red Cell Distribution Width 19.2 % (11.5-14.5) Platelet Count 366 x10^3/uL (140-400) Neutrophils (%) (Auto) 88 % (31-73) Lymphocytes (%) (Auto) 7 % (24-48) Monocytes (%) (Auto) 5 % (0-9) Eosinophils (%) (Auto) 0 % (0-3) Basophils (%) (Auto) 0 % (0-3) Neutrophils # (Auto) 14.5 x10^3uL (1.8-7.7) Lymphocytes # (Auto) 1.2 x10^3/uL (1.0-4.8) Monocytes # (Auto) 0.8 x10^3/uL (0.0-1.1) Eosinophils # (Auto) 0.1 x10^3/uL (0.0-0.7) Basophils # (Auto) 0.0 x10^3/uL (0.0-0.2) Segmented Neutrophils % 85 % (35-66) Band Neutrophils % 8 % (0-9) Lymphocytes % 4 % (24-48) Monocytes % 3 % (0-10) Platelet Estimate Adequate (ADEQUATE) Polychromasia Slight Poikilocytosis Slight Anisocytosis Slight Prothrombin Time 17.2 SEC (11.7-14.0) Prothromb Time International Ratio 1.4 (0.8-1.1) Activated Partial Thromboplast Time 47 SEC (24-38) Urine Collection Type U cath Urine Color Yellow Urine Clarity Clear Urine pH 8.0 Urine Specific [place] 1.015 Urine Protein 100 mg/dL (NEG-TRACE) Urine Glucose (UA) Negative mg/dL (NEG) Urine Ketones (Stick) Negative mg/dL (NEG) Urine Blood Negative (NEG) Urine Nitrite Negative (NEG) Urine Bilirubin Negative (NEG) Urine Urobilinogen Dipstick 1.0 mg/dL (0.2 mg/dL) Urine Leukocyte Esterase Trace (NEG) Urine RBC 0 /HPF (0-2) Urine WBC 5-10 /HPF (0-4) Urine Bacteria 0 /HPF (0-FEW) Urine Hyaline Casts Moderate /HPF Urine Mucus Mod /LPF Urine Yeast Present /HPF Sodium Level 139 mmol/L (136-145) Potassium Level 3.3 mmol/L (3.5-5.1) Chloride Level 102 mmol/L (98-107) Carbon Dioxide Level 28 mmol/L (21-32) Anion Gap 9 (6-14) Blood Urea Nitrogen 29 mg/dL (7-20) Creatinine 3.8 mg/dL (0.6-1.0) Estimated GFR (Cockcroft-Gault) 11.7 BUN/Creatinine Ratio 8 (6-20) Glucose Level 91 mg/dL (70-99) Lactic Acid Level 1.3 mmol/L (0.4-2.0) 1.0 mmol/L (0.4-2.0) Calcium Level 8.3 mg/dL (8.5-10.1) Magnesium Level 1.7 mg/dL (1.8-2.4) Total Bilirubin 0.4 mg/dL (0.2-1.0) Aspartate Amino Transf (AST/SGOT) 26 U/L (15-37) Alanine Aminotransferase (ALT/SGPT) 12 U/L (14-59) Alkaline Phosphatase 100 U/L (46-116) Creatine Kinase 9 U/L (26-192) Creatine Kinase MB (Mass) < 0.5 ng/mL (0.0-3.6) Creatine Kinase MB Relative Index 5.6 % (0-4) Troponin I Quantitative < 0.017 ng/mL (0.000-0.055) JC-Ath-S-Type Natriuretic Peptide > 85514 pg/mL (0-124) Total Protein 6.1 g/dL (6.4-8.2) Albumin 1.3 g/dL (3.4-5.0) Albumin/Globulin Ratio 0.3 (1.0-1.7) Lipase 31 U/L (73-393) Thyroid Stimulating Hormone (TSH) 1.438 uIU/mL (0.358-3.74) Urine Opiates Screen Neg (NEG) Urine Methadone Screen Neg (NEG) Urine Barbiturates Neg (NEG) Urine Phencyclidine Screen Neg (NEG) Urine Amphetamine/Methamphetamine Neg (NEG) Urine Benzodiazepines Screen Neg (NEG) Urine Cocaine Screen Neg (NEG) Urine Cannabinoids Screen Neg (NEG) Urine Ethyl Alcohol Neg (NEG) Influenza Type A Antigen Negative (NEGATIVE) Influenza Type B Antigen Negative (NEGATIVE) Bedside Troponin I 0.02 ng/ml (<0.08) VTE Prophylaxis Ordered VTE Prophylaxis Devices: Yes VTE Pharmacological Prophylaxi: Yes Assessment/Plan Assessment/Plan symptomatic anemia severe malnutrition weakness and debility, acquired ESRD, admit acute on chronic encephalopathy, poss depression, check b12, consider RPR GREGORIO CONN MD Jul 14, 2018 21:34
[2018-07-14] MEDS ORDERED: PHYTONADIONE 10 MG/ML ORAL SOLUTION. PO ONE (22:00)
[2018-07-14] MEDS: rOPINIRole 1 MG TABLET. PO SCH (22:13)
[2018-07-14] MEDS: MIRTAZAPINE 15 MG TABLET PO SCH (22:13)
[2018-07-14 22:22] VITALS: BP 145/67
[2018-07-14 23:00] VITALS: BP 152/67
[2018-07-14 23:22] VITALS: BP 152/67
[2018-07-15] VITALS (8 sets, daily range): BP systolic 113–157; BP diastolic 57–85
[2018-07-15 03:01] LABS: BASO # 0.1 x10^3/uL (0.0-0.2); BASO % 0 % (0-3); EOS # 0.2 x10^3/uL (0.0-0.7); EOS % 1 % (0-3); HEMATOCRIT 23.6 % (36.0-47.0); HEMOGLOBIN 7.5 g/dL (12.0-15.5); LYMPH # 1.2 x10^3/uL (1.0-4.8); LYMPH % 7 % (24-48); MEAN CORPUSCULAR HEMOGLOBIN 26 pg (25-35); MEAN CORPUSCULAR HGB CONC 32 g/dL (31-37); MEAN CORPUSCULAR VOLUME 82 fL (79-100); MONO % 6 % (0-9); NEUT # 15.2 x10^3uL (1.8-7.7); NEUT % 86 % (31-73); PLATELET COUNT 377 x10^3/uL (140-400); RED BLOOD COUNT 2.89 x10^6/uL (3.50-5.40); RED CELL DISTRIBUTION WIDTH 17.6 % (11.5-14.5); RETIC COUNT 4.9 % (0.5-2.5); WHITE BLOOD COUNT 17.7 x10^3/uL (4.0-11.0)
[2018-07-15 03:43] LABS: ALBUMIN 1.2 g/dL (3.4-5.0); ALBUMIN/GLOBULIN RATIO 0.3 (1.0-1.7); CALCIUM 8.3 mg/dL (8.5-10.1); CREATININE 3.9 mg/dL (0.6-1.0); GFR 11.4; PHOSPHORUS 4.1 mg/dL (2.6-4.7); POTASSIUM 3.3 mmol/L (3.5-5.1); TOTAL BILIRUBIN 0.8 mg/dL (0.2-1.0); TOTAL PROTEIN 5.9 g/dL (6.4-8.2)
[2018-07-15] MEDS ORDERED: VANCOMYCIN RANDOM LEVEL. MC ONE (06:00)
[2018-07-15] MEDS: IPRATRPIUM/ALBUTEROL 0.5/2.5MG 3 ML NEBU. NEB SCH ×2 (07:19→20:25)
--- NOTE | 2018-07-15 08:05 | PDOC ---
PROGRESS NOTES Chief Complaint Chief Complaint Acute Anemia Leukocytosis - likely UTI Vascular dementia HTN Anxiety Depression End-stage renal disease on dialysis Saturday, Saturday, (new dx 2019) History of Present Illness History of Present Illness 72 yo f w/ PMHx CVA with vascular dementia, HTN, anxiety, depression, end-stage renal disease on dialysis Saturday, Saturday, (new dx 2019), last dialyzed on Saturday who p/w fever, decreased appetite, fever, decreased energy/ weakness, symptoms began 3 days ago. Found with Hb of 5.6 in ED, transfused PRBC to 7.5 She has history dementia but she is alert to person only, but is able to carry on a conversation and give some health history. She does not refuse dialysis today. She was seen here this past January 2018 and May 2018 and [facility] She has a DPOA, Ivy the nephew has been texting who has been informed of hospital admission. Seen on dialysis today. She has some chills with this. Notably, lab called about 3/4 bottles positive on blood culture for GPC in clusters. A/P: Gram-positive cocci bacteremia, present on admission on 07/14/2018 - consult ID , vanco Anemia, status post packed red blood cells - will monitor Leukocytosis - now with HR 99, she meets criteria for SIRS and with bacteremia this is SEPSIS, poa. Could possibly simply be reactive due to her anemia ESRD - on hemodialysis. Nephrology consulted Severe protein malnutrition - likely 2/2 her dementia and currently infectious process Cont inpatient Vitals Vitals Vital Signs Date Time Temp Pulse Resp B/P (MAP) Pulse Ox O2 Delivery O2 Flow Rate FiO2 07/15/18 07:22 98 Room Air 07/15/18 07:00 98.3 84 17 156/83 (107) 98.3 Physical Exam General: Cooperative, No acute distress, Other (poorly oriented) Lungs: Clear Abdomen: Normal bowel sounds, Soft Extremities: No cyanosis, Normal pulses Skin: No rashes, No significant lesion Labs LABS Laboratory Tests Test 07/14/18 15:05 07/14/18 15:15 07/14/18 17:57 07/15/18 02:30 White Blood Count 16.6 x10^3/uL (4.0-11.0) 17.7 x10^3/uL (4.0-11.0) Red Blood Count 2.18 x10^6/uL (3.50-5.40) 2.89 x10^6/uL (3.50-5.40) Hemoglobin 5.6 g/dL (12.0-15.5) 7.5 g/dL (12.0-15.5) Hematocrit 18.1 % (36.0-47.0) 23.6 % (36.0-47.0) Mean Corpuscular Volume 83 fL (79-100) 82 fL (79-100) Mean Corpuscular Hemoglobin 26 pg (25-35) 26 pg (25-35) Mean Corpuscular Hemoglobin Concent 31 g/dL (31-37) 32 g/dL (31-37) Red Cell Distribution Width 19.2 % (11.5-14.5) 17.6 % (11.5-14.5) Platelet Count 366 x10^3/uL (140-400) 377 x10^3/uL (140-400) Neutrophils (%) (Auto) 88 % (31-73) 86 % (31-73) Lymphocytes (%) (Auto) 7 % (24-48) 7 % (24-48) Monocytes (%) (Auto) 5 % (0-9) 6 % (0-9) Eosinophils (%) (Auto) 0 % (0-3) 1 % (0-3) Basophils (%) (Auto) 0 % (0-3) 0 % (0-3) Neutrophils # (Auto) 14.5 x10^3uL (1.8-7.7) 15.2 x10^3uL (1.8-7.7) Lymphocytes # (Auto) 1.2 x10^3/uL (1.0-4.8) 1.2 x10^3/uL (1.0-4.8) Monocytes # (Auto) 0.8 x10^3/uL (0.0-1.1) 1.0 x10^3/uL (0.0-1.1) Eosinophils # (Auto) 0.1 x10^3/uL (0.0-0.7) 0.2 x10^3/uL (0.0-0.7) Basophils # (Auto) 0.0 x10^3/uL (0.0-0.2) 0.1 x10^3/uL (0.0-0.2) Segmented Neutrophils % 85 % (35-66) Band Neutrophils % 8 % (0-9) Lymphocytes % 4 % (24-48) Monocytes % 3 % (0-10) Platelet Estimate Adequate (ADEQUATE) Polychromasia Slight Poikilocytosis Slight Anisocytosis Slight Prothrombin Time 17.2 SEC (11.7-14.0) Prothromb Time International Ratio 1.4 (0.8-1.1) Activated Partial Thromboplast Time 47 SEC (24-38) Urine Collection Type U cath Urine Color Yellow Urine Clarity Clear Urine pH 8.0 Urine Specific [place] 1.015 Urine Protein 100 mg/dL (NEG-TRACE) Urine Glucose (UA) Negative mg/dL (NEG) Urine Ketones (Stick) Negative mg/dL (NEG) Urine Blood Negative (NEG) Urine Nitrite Negative (NEG) Urine Bilirubin Negative (NEG) Urine Urobilinogen Dipstick 1.0 mg/dL (0.2 mg/dL) Urine Leukocyte Esterase Trace (NEG) Urine RBC 0 /HPF (0-2) Urine WBC 5-10 /HPF (0-4) Urine Bacteria 0 /HPF (0-FEW) Urine Hyaline Casts Moderate /HPF Urine Mucus Mod /LPF Urine Yeast Present /HPF Sodium Level 139 mmol/L (136-145) 138 mmol/L (136-145) Potassium Level 3.3 mmol/L (3.5-5.1) 3.3 mmol/L (3.5-5.1) Chloride Level 102 mmol/L (98-107) 103 mmol/L (98-107) Carbon Dioxide Level 28 mmol/L (21-32) 25 mmol/L (21-32) Anion Gap 9 (6-14) 10 (6-14) Blood Urea Nitrogen 29 mg/dL (7-20) 33 mg/dL (7-20) Creatinine 3.8 mg/dL (0.6-1.0) 3.9 mg/dL (0.6-1.0) Estimated GFR (Cockcroft-Gault) 11.7 11.4 BUN/Creatinine Ratio 8 (6-20) 8 (6-20) Glucose Level 91 mg/dL (70-99) 85 mg/dL (70-99) Lactic Acid Level 1.3 mmol/L (0.4-2.0) 1.0 mmol/L (0.4-2.0) Calcium Level 8.3 mg/dL (8.5-10.1) 8.3 mg/dL (8.5-10.1) Magnesium Level 1.7 mg/dL (1.8-2.4) Total Bilirubin 0.4 mg/dL (0.2-1.0) 0.8 mg/dL (0.2-1.0) Aspartate Amino Transf (AST/SGOT) 26 U/L (15-37) 24 U/L (15-37) Alanine Aminotransferase (ALT/SGPT) 12 U/L (14-59) 12 U/L (14-59) Alkaline Phosphatase 100 U/L (46-116) 104 U/L (46-116) Creatine Kinase 9 U/L (26-192) Creatine Kinase MB (Mass) < 0.5 ng/mL (0.0-3.6) Creatine Kinase MB Relative Index 5.6 % (0-4) Troponin I Quantitative < 0.017 ng/mL (0.000-0.055) BI-Ocj-D-Type Natriuretic Peptide > 72683 pg/mL (0-124) Total Protein 6.1 g/dL (6.4-8.2) 5.9 g/dL (6.4-8.2) Albumin 1.3 g/dL (3.4-5.0) 1.2 g/dL (3.4-5.0) Albumin/Globulin Ratio 0.3 (1.0-1.7) 0.3 (1.0-1.7) Lipase 31 U/L (73-393) Thyroid Stimulating Hormone (TSH) 1.438 uIU/mL (0.358-3.74) Urine Opiates Screen Neg (NEG) Urine Methadone Screen Neg (NEG) Urine Barbiturates Neg (NEG) Urine Phencyclidine Screen Neg (NEG) Urine Amphetamine/Methamphetamine Neg (NEG) Urine Benzodiazepines Screen Neg (NEG) Urine Cocaine Screen Neg (NEG) Urine Cannabinoids Screen Neg (NEG) Urine Ethyl Alcohol Neg (NEG) Influenza Type A Antigen Negative (NEGATIVE) Influenza Type B Antigen Negative (NEGATIVE) Bedside Troponin I 0.02 ng/ml (<0.08) Reticulocyte Count (auto) 4.9 % (0.5-2.5) Phosphorus Level 4.1 mg/dL (2.6-4.7) Iron Level 27 ug/dL (50-170) Total Iron Binding Capacity 73 ug/dL (250-450) Iron Saturation 37 % (15-34) Prealbumin 8.1 mg/dL (16.0-42.0) Vitamin B12 Level 536 pg/mL (247-911) Random Vancomycin Level 26.0 mcg/mL Treponema pallidum Antibody Nonreactive (Nonreactive) Assessment and Plan Assessmemt and Plan Problems Medical Problems: (1) End stage renal disease Status: Acute (2) Generalized weakness Status: Acute Comment Review of Relevant I have reviewed the following items linda (where applicable) has been applied. Labs Laboratory Tests Test 07/14/18 15:05 07/14/18 15:15 07/14/18 17:57 07/15/18 02:30 White Blood Count 16.6 x10^3/uL (4.0-11.0) 17.7 x10^3/uL (4.0-11.0) Red Blood Count 2.18 x10^6/uL (3.50-5.40) 2.89 x10^6/uL (3.50-5.40) Hemoglobin 5.6 g/dL (12.0-15.5) 7.5 g/dL (12.0-15.5) Hematocrit 18.1 % (36.0-47.0) 23.6 % (36.0-47.0) Mean Corpuscular Volume 83 fL (79-100) 82 fL (79-100) Mean Corpuscular Hemoglobin 26 pg (25-35) 26 pg (25-35) Mean Corpuscular Hemoglobin Concent 31 g/dL (31-37) 32 g/dL (31-37) Red Cell Distribution Width 19.2 % (11.5-14.5) 17.6 % (11.5-14.5) Platelet Count 366 x10^3/uL (140-400) 377 x10^3/uL (140-400) Neutrophils (%) (Auto) 88 % (31-73) 86 % (31-73) Lymphocytes (%) (Auto) 7 % (24-48) 7 % (24-48) Monocytes (%) (Auto) 5 % (0-9) 6 % (0-9) Eosinophils (%) (Auto) 0 % (0-3) 1 % (0-3) Basophils (%) (Auto) 0 % (0-3) 0 % (0-3) Neutrophils # (Auto) 14.5 x10^3uL (1.8-7.7) 15.2 x10^3uL (1.8-7.7) Lymphocytes # (Auto) 1.2 x10^3/uL (1.0-4.8) 1.2 x10^3/uL (1.0-4.8) Monocytes # (Auto) 0.8 x10^3/uL (0.0-1.1) 1.0 x10^3/uL (0.0-1.1) Eosinophils # (Auto) 0.1 x10^3/uL (0.0-0.7) 0.2 x10^3/uL (0.0-0.7) Basophils # (Auto) 0.0 x10^3/uL (0.0-0.2) 0.1 x10^3/uL (0.0-0.2) Segmented Neutrophils % 85 % (35-66) Band Neutrophils % 8 % (0-9) Lymphocytes % 4 % (24-48) Monocytes % 3 % (0-10) Platelet Estimate Adequate (ADEQUATE) Polychromasia Slight Poikilocytosis Slight Anisocytosis Slight Prothrombin Time 17.2 SEC (11.7-14.0) Prothromb Time International Ratio 1.4 (0.8-1.1) Activated Partial Thromboplast Time 47 SEC (24-38) Urine Collection Type U cath Urine Color Yellow Urine Clarity Clear Urine pH 8.0 Urine Specific [place] 1.015 Urine Protein 100 mg/dL (NEG-TRACE) Urine Glucose (UA) Negative mg/dL (NEG) Urine Ketones (Stick) Negative mg/dL (NEG) Urine Blood Negative (NEG) Urine Nitrite Negative (NEG) Urine Bilirubin Negative (NEG) Urine Urobilinogen Dipstick 1.0 mg/dL (0.2 mg/dL) Urine Leukocyte Esterase Trace (NEG) Urine RBC 0 /HPF (0-2) Urine WBC 5-10 /HPF (0-4) Urine Bacteria 0 /HPF (0-FEW) Urine Hyaline Casts Moderate /HPF Urine Mucus Mod /LPF Urine Yeast Present /HPF Sodium Level 139 mmol/L (136-145) 138 mmol/L (136-145) Potassium Level 3.3 mmol/L (3.5-5.1) 3.3 mmol/L (3.5-5.1) Chloride Level 102 mmol/L (98-107) 103 mmol/L (98-107) Carbon Dioxide Level 28 mmol/L (21-32) 25 mmol/L (21-32) Anion Gap 9 (6-14) 10 (6-14) Blood Urea Nitrogen 29 mg/dL (7-20) 33 mg/dL (7-20) Creatinine 3.8 mg/dL (0.6-1.0) 3.9 mg/dL (0.6-1.0) Estimated GFR (Cockcroft-Gault) 11.7 11.4 BUN/Creatinine Ratio 8 (6-20) 8 (6-20) Glucose Level 91 mg/dL (70-99) 85 mg/dL (70-99) Lactic Acid Level 1.3 mmol/L (0.4-2.0) 1.0 mmol/L (0.4-2.0) Calcium Level 8.3 mg/dL (8.5-10.1) 8.3 mg/dL (8.5-10.1) Magnesium Level 1.7 mg/dL (1.8-2.4) Total Bilirubin 0.4 mg/dL (0.2-1.0) 0.8 mg/dL (0.2-1.0) Aspartate Amino Transf (AST/SGOT) 26 U/L (15-37) 24 U/L (15-37) Alanine Aminotransferase (ALT/SGPT) 12 U/L (14-59) 12 U/L (14-59) Alkaline Phosphatase 100 U/L (46-116) 104 U/L (46-116) Creatine Kinase 9 U/L (26-192) Creatine Kinase MB (Mass) < 0.5 ng/mL (0.0-3.6) Creatine Kinase MB Relative Index 5.6 % (0-4) Troponin I Quantitative < 0.017 ng/mL (0.000-0.055) TL-Byt-K-Type Natriuretic Peptide > 42286 pg/mL (0-124) Total Protein 6.1 g/dL (6.4-8.2) 5.9 g/dL (6.4-8.2) Albumin 1.3 g/dL (3.4-5.0) 1.2 g/dL (3.4-5.0) Albumin/Globulin Ratio 0.3 (1.0-1.7) 0.3 (1.0-1.7) Lipase 31 U/L (73-393) Thyroid Stimulating Hormone (TSH) 1.438 uIU/mL (0.358-3.74) Urine Opiates Screen Neg (NEG) Urine Methadone Screen Neg (NEG) Urine Barbiturates Neg (NEG) Urine Phencyclidine Screen Neg (NEG) Urine Amphetamine/Methamphetamine Neg (NEG) Urine Benzodiazepines Screen Neg (NEG) Urine Cocaine Screen Neg (NEG) Urine Cannabinoids Screen Neg (NEG) Urine Ethyl Alcohol Neg (NEG) Influenza Type A Antigen Negative (NEGATIVE) Influenza Type B Antigen Negative (NEGATIVE) Bedside Troponin I 0.02 ng/ml (<0.08) Reticulocyte Count (auto) 4.9 % (0.5-2.5) Phosphorus Level 4.1 mg/dL (2.6-4.7) Iron Level 27 ug/dL (50-170) Total Iron Binding Capacity 73 ug/dL (250-450) Iron Saturation 37 % (15-34) Prealbumin 8.1 mg/dL (16.0-42.0) Vitamin B12 Level 536 pg/mL (247-911) Random Vancomycin Level 26.0 mcg/mL Treponema pallidum Antibody Nonreactive (Nonreactive) Laboratory Tests Test 07/14/18 15:05 07/14/18 15:15 07/14/18 17:57 07/15/18 02:30 White Blood Count 16.6 x10^3/uL (4.0-11.0) 17.7 x10^3/uL (4.0-11.0) Red Blood Count 2.18 x10^6/uL (3.50-5.40) 2.89 x10^6/uL (3.50-5.40) Hemoglobin 5.6 g/dL (12.0-15.5) 7.5 g/dL (12.0-15.5) Hematocrit 18.1 % (36.0-47.0) 23.6 % (36.0-47.0) Mean Corpuscular Volume 83 fL (79-100) 82 fL (79-100) Mean Corpuscular Hemoglobin 26 pg (25-35) 26 pg (25-35) Mean Corpuscular Hemoglobin Concent 31 g/dL (31-37) 32 g/dL (31-37) Red Cell Distribution Width 19.2 % (11.5-14.5) 17.6 % (11.5-14.5) Platelet Count 366 x10^3/uL (140-400) 377 x10^3/uL (140-400) Neutrophils (%) (Auto) 88 % (31-73) 86 % (31-73) Lymphocytes (%) (Auto) 7 % (24-48) 7 % (24-48) Monocytes (%) (Auto) 5 % (0-9) 6 % (0-9) Eosinophils (%) (Auto) 0 % (0-3) 1 % (0-3) Basophils (%) (Auto) 0 % (0-3) 0 % (0-3) Neutrophils # (Auto) 14.5 x10^3uL (1.8-7.7) 15.2 x10^3uL (1.8-7.7) Lymphocytes # (Auto) 1.2 x10^3/uL (1.0-4.8) 1.2 x10^3/uL (1.0-4.8) Monocytes # (Auto) 0.8 x10^3/uL (0.0-1.1) 1.0 x10^3/uL (0.0-1.1) Eosinophils # (Auto) 0.1 x10^3/uL (0.0-0.7) 0.2 x10^3/uL (0.0-0.7) Basophils # (Auto) 0.0 x10^3/uL (0.0-0.2) 0.1 x10^3/uL (0.0-0.2) Segmented Neutrophils % 85 % (35-66) Band Neutrophils % 8 % (0-9) Lymphocytes % 4 % (24-48) Monocytes % 3 % (0-10) Platelet Estimate Adequate (ADEQUATE) Polychromasia Slight Poikilocytosis Slight Anisocytosis Slight Prothrombin Time 17.2 SEC (11.7-14.0) Prothromb Time International Ratio 1.4 (0.8-1.1) Activated Partial Thromboplast Time 47 SEC (24-38) Urine Collection Type U cath Urine Color Yellow Urine Clarity Clear Urine pH 8.0 Urine Specific [place] 1.015 Urine Protein 100 mg/dL (NEG-TRACE) Urine Glucose (UA) Negative mg/dL (NEG) Urine Ketones (Stick) Negative mg/dL (NEG) Urine Blood Negative (NEG) Urine Nitrite Negative (NEG) Urine Bilirubin Negative (NEG) Urine Urobilinogen Dipstick 1.0 mg/dL (0.2 mg/dL) Urine Leukocyte Esterase Trace (NEG) Urine RBC 0 /HPF (0-2) Urine WBC 5-10 /HPF (0-4) Urine Bacteria 0 /HPF (0-FEW) Urine Hyaline Casts Moderate /HPF Urine Mucus Mod /LPF Urine Yeast Present /HPF Sodium Level 139 mmol/L (136-145) 138 mmol/L (136-145) Potassium Level 3.3 mmol/L (3.5-5.1) 3.3 mmol/L (3.5-5.1) Chloride Level 102 mmol/L (98-107) 103 mmol/L (98-107) Carbon Dioxide Level 28 mmol/L (21-32) 25 mmol/L (21-32) Anion Gap 9 (6-14) 10 (6-14) Blood Urea Nitrogen 29 mg/dL (7-20) 33 mg/dL (7-20) Creatinine 3.8 mg/dL (0.6-1.0) 3.9 mg/dL (0.6-1.0) Estimated GFR (Cockcroft-Gault) 11.7 11.4 BUN/Creatinine Ratio 8 (6-20) 8 (6-20) Glucose Level 91 mg/dL (70-99) 85 mg/dL (70-99) Lactic Acid Level 1.3 mmol/L (0.4-2.0) 1.0 mmol/L (0.4-2.0) Calcium Level 8.3 mg/dL (8.5-10.1) 8.3 mg/dL (8.5-10.1) Magnesium Level 1.7 mg/dL (1.8-2.4) Total Bilirubin 0.4 mg/dL (0.2-1.0) 0.8 mg/dL (0.2-1.0) Aspartate Amino Transf (AST/SGOT) 26 U/L (15-37) 24 U/L (15-37) Alanine Aminotransferase (ALT/SGPT) 12 U/L (14-59) 12 U/L (14-59) Alkaline Phosphatase 100 U/L (46-116) 104 U/L (46-116) Creatine Kinase 9 U/L (26-192) Creatine Kinase MB (Mass) < 0.5 ng/mL (0.0-3.6) Creatine Kinase MB Relative Index 5.6 % (0-4) Troponin I Quantitative < 0.017 ng/mL (0.000-0.055) RS-Gbq-J-Type Natriuretic Peptide > 82371 pg/mL (0-124) Total Protein 6.1 g/dL (6.4-8.2) 5.9 g/dL (6.4-8.2) Albumin 1.3 g/dL (3.4-5.0) 1.2 g/dL (3.4-5.0) Albumin/Globulin Ratio 0.3 (1.0-1.7) 0.3 (1.0-1.7) Lipase 31 U/L (73-393) Thyroid Stimulating Hormone (TSH) 1.438 uIU/mL (0.358-3.74) Urine Opiates Screen Neg (NEG) Urine Methadone Screen Neg (NEG) Urine Barbiturates Neg (NEG) Urine Phencyclidine Screen Neg (NEG) Urine Amphetamine/Methamphetamine Neg (NEG) Urine Benzodiazepines Screen Neg (NEG) Urine Cocaine Screen Neg (NEG) Urine Cannabinoids Screen Neg (NEG) Urine Ethyl Alcohol Neg (NEG) Influenza Type A Antigen Negative (NEGATIVE) Influenza Type B Antigen Negative (NEGATIVE) Bedside Troponin I 0.02 ng/ml (<0.08) Reticulocyte Count (auto) 4.9 % (0.5-2.5) Phosphorus Level 4.1 mg/dL (2.6-4.7) Iron Level 27 ug/dL (50-170) Total Iron Binding Capacity 73 ug/dL (250-450) Iron Saturation 37 % (15-34) Prealbumin 8.1 mg/dL (16.0-42.0) Vitamin B12 Level 536 pg/mL (247-911) Random Vancomycin Level 26.0 mcg/mL Treponema pallidum Antibody Nonreactive (Nonreactive) Medications Current Medications Piperacillin Sod/ Tazobactam Sod 4.5 gm/Sodium Chloride 100 ml @ 200 mls/hr 1X ONCE IV Last administered on 07/14/18at 15:58; Start 07/14/18 at 15:00; Stop 07/14/18 at 15:29; Status DC Vancomycin HCl (Vanco Per Pharmacy) 1 each PRN DAILY PRN MC SEE COMMENTS Last administered on 07/14/18at 19:24; Start 07/14/18 at 14:45 Vancomycin HCl 1.25 gm/Sodium Chloride 250 ml @ 166.667 mls/hr 1X ONCE IV Last administered on 07/14/18at 18:10; Start 07/14/18 at 15:00; Stop 07/14/18 at 16:29; Status DC Ondansetron HCl (Zofran) 4 mg PRN Q8HRS PRN IV NAUSEA/VOMITING; Start 07/14/18 at 17:15; Stop 07/15/18 at 17:14 Morphine Sulfate (Morphine Sulfate) 2 mg PRN Q2HR PRN IV PAIN; Start 07/14/18 at 17:15; Stop 07/15/18 at 17:14 Acetaminophen (Tylenol) 650 mg PRN Q4HRS PRN PO FEVER; Start 07/14/18 at 17:15 ; Stop 07/15/18 at 17:14 Vancomycin HCl (Vancomycin Random Level) 1 each 1X ONCE MC ; Start 07/15/18 at 06:00; Stop 07/15/18 at 06:01; Status DC Vitamin B Complex/ Vitamin C (Dinorah-Ralph) 1 tab QPM PO ; Start 07/15/18 at 18:00 Megestrol Acetate (Megace) 40 mg BID PO ; Start 07/15/18 at 09:00 Mirtazapine (Remeron) 15 mg QHS PO Last administered on 07/14/18at 22:13; Start 07/14/18 at 22:00 Non-Formulary Medication (Mirtazapine ) 1 tab QHS PO ; Start 07/15/18 at 21:00; Status UNV Ropinirole HCl (Requip) 3 mg BID PO Last administered on 07/14/18at 22:13; Start 07/14/18 at 22:00 Sertraline HCl (Zoloft) 100 mg DAILY PO ; Start 07/15/18 at 09:00 Phytonadione (Mephyton Oral Soln) 5 mg 1X ONCE PO Last administered on at 22:14; Start 07/14/18 at 22:00; Stop 07/14/18 at 22:01; Status DC Vitamin B Complex (Folbic Tablet) 1 tab DAILY PO ; Start 07/15/18 at 09:00 Albuterol/ Ipratropium (Duoneb) 3 ml RTBID NEB Last administered on 07/15/18at 07:19; Start 07/15/18 at 08:00 Active Scripts Active Reported Dialyvite Tablet (Folic Acid/Vitamin B Comp W-C) 1 Each Tablet 1 Each PO QPM QPM @ 1900 [hectorol] QTUTHSA [epogen] QTUTHSA Mirtazapine 15 Mg Tablet 1 Tab PO QHS Zoloft (Sertraline Hcl) 100 Mg Tablet 1 Tab PO DAILY Requip (Ropinirole Hcl) 1 Mg Tablet 3 Mg PO BID Mirtazapine 15 Mg Tablet 1 Tab PO QHS Megestrol Acetate 40 Mg Tablet 40 Mg PO BID Vitals/I & O Vital Sign - Last 24 Hours 07/14/18 07/14/18 07/14/18 07/14/18 14:43 15:02 15:39 16:09 Temp 98.7 98.7 Pulse 82 86 81 78 Resp 18 18 18 B/P (MAP) 109/60 (76) 113/58 (76) 112/57 (75) 111/56 (74) Pulse Ox 98 99 99 99 O2 Delivery Room Air Room Air Room Air Room Air 07/14/18 07/14/18 07/14/18 07/14/18 16:39 17:09 17:39 18:09 Pulse 76 80 78 80 Resp 16 18 18 17 B/P (MAP) 120/66 (84) 110/59 (76) 130/61 (84) 128/63 (84) Pulse Ox 99 98 98 97 O2 Delivery Room Air Room Air Room Air Room Air 07/14/18 07/14/18 07/14/18 07/14/18 19:00 20:00 22:22 23:00 Temp 97.6 98.3 98.2 97.6 98.3 98.2 Pulse 77 79 74 Resp 18 18 16 B/P (MAP) 115/69 (84) 145/67 152/67 (95) Pulse Ox 97 98 O2 Delivery Room Air Room Air Room Air 07/14/18 07/15/18 07/15/18 07/15/18 23:22 00:22 01:30 02:30 Temp 98.1 98.1 98.1 99.1 98.1 98.1 98.1 99.1 Pulse 74 81 75 83 Resp 16 19 B/P (MAP) 152/67 148/57 145/62 157/67 07/15/18 07/15/18 07/15/18 03:00 07:00 07:22 Temp 99.1 98.3 99.1 98.3 Pulse 83 84 Resp 17 B/P (MAP) 156/67 (96) 156/83 (107) Pulse Ox 98 98 98 O2 Delivery Room Air Room Air Room Air Intake and Output 07/14/18 07/14/18 07/15/18 15:00 23:00 07:00 Intake Total 103 ml 150 ml Output Total 0 ml 0 ml Balance 103 ml 150 ml Images CXR - The cardiac silhouette is unremarkable. Right-sided dialysis catheter in place. Mild prominent appearing bilateral digital lung markings likely mild congestive changes. Minimal atelectasis left lung base. CT Head - no abnormalities Bilateral shoulder XR - DJD, otherwise no acute findings SOFIYA MCCORMACK MD Jul 15, 2018 08:05
--- NOTE | 2018-07-15 09:31 | PDOC ---
Infectious Disease Note Vital Sign Vital Signs Vital Signs Date Time Temp Pulse Resp B/P (MAP) Pulse Ox O2 Delivery O2 Flow Rate FiO2 07/15/18 07:22 98 Room Air 07/15/18 07:00 98.3 84 17 156/83 (107) 98.3 Labs Lab Laboratory Tests Test 07/14/18 15:05 07/14/18 15:15 07/14/18 17:57 07/15/18 02:30 White Blood Count 16.6 x10^3/uL (4.0-11.0) 17.7 x10^3/uL (4.0-11.0) Red Blood Count 2.18 x10^6/uL (3.50-5.40) 2.89 x10^6/uL (3.50-5.40) Hemoglobin 5.6 g/dL (12.0-15.5) 7.5 g/dL (12.0-15.5) Hematocrit 18.1 % (36.0-47.0) 23.6 % (36.0-47.0) Mean Corpuscular Volume 83 fL (79-100) 82 fL (79-100) Mean Corpuscular Hemoglobin 26 pg (25-35) 26 pg (25-35) Mean Corpuscular Hemoglobin Concent 31 g/dL (31-37) 32 g/dL (31-37) Red Cell Distribution Width 19.2 % (11.5-14.5) 17.6 % (11.5-14.5) Platelet Count 366 x10^3/uL (140-400) 377 x10^3/uL (140-400) Neutrophils (%) (Auto) 88 % (31-73) 86 % (31-73) Lymphocytes (%) (Auto) 7 % (24-48) 7 % (24-48) Monocytes (%) (Auto) 5 % (0-9) 6 % (0-9) Eosinophils (%) (Auto) 0 % (0-3) 1 % (0-3) Basophils (%) (Auto) 0 % (0-3) 0 % (0-3) Neutrophils # (Auto) 14.5 x10^3uL (1.8-7.7) 15.2 x10^3uL (1.8-7.7) Lymphocytes # (Auto) 1.2 x10^3/uL (1.0-4.8) 1.2 x10^3/uL (1.0-4.8) Monocytes # (Auto) 0.8 x10^3/uL (0.0-1.1) 1.0 x10^3/uL (0.0-1.1) Eosinophils # (Auto) 0.1 x10^3/uL (0.0-0.7) 0.2 x10^3/uL (0.0-0.7) Basophils # (Auto) 0.0 x10^3/uL (0.0-0.2) 0.1 x10^3/uL (0.0-0.2) Segmented Neutrophils % 85 % (35-66) Band Neutrophils % 8 % (0-9) Lymphocytes % 4 % (24-48) Monocytes % 3 % (0-10) Platelet Estimate Adequate (ADEQUATE) Polychromasia Slight Poikilocytosis Slight Anisocytosis Slight Prothrombin Time 17.2 SEC (11.7-14.0) Prothromb Time International Ratio 1.4 (0.8-1.1) Activated Partial Thromboplast Time 47 SEC (24-38) Urine Collection Type U cath Urine Color Yellow Urine Clarity Clear Urine pH 8.0 Urine Specific Terrell 1.015 Urine Protein 100 mg/dL (NEG-TRACE) Urine Glucose (UA) Negative mg/dL (NEG) Urine Ketones (Stick) Negative mg/dL (NEG) Urine Blood Negative (NEG) Urine Nitrite Negative (NEG) Urine Bilirubin Negative (NEG) Urine Urobilinogen Dipstick 1.0 mg/dL (0.2 mg/dL) Urine Leukocyte Esterase Trace (NEG) Urine RBC 0 /HPF (0-2) Urine WBC 5-10 /HPF (0-4) Urine Bacteria 0 /HPF (0-FEW) Urine Hyaline Casts Moderate /HPF Urine Mucus Mod /LPF Urine Yeast Present /HPF Sodium Level 139 mmol/L (136-145) 138 mmol/L (136-145) Potassium Level 3.3 mmol/L (3.5-5.1) 3.3 mmol/L (3.5-5.1) Chloride Level 102 mmol/L (98-107) 103 mmol/L (98-107) Carbon Dioxide Level 28 mmol/L (21-32) 25 mmol/L (21-32) Anion Gap 9 (6-14) 10 (6-14) Blood Urea Nitrogen 29 mg/dL (7-20) 33 mg/dL (7-20) Creatinine 3.8 mg/dL (0.6-1.0) 3.9 mg/dL (0.6-1.0) Estimated GFR (Cockcroft-Gault) 11.7 11.4 BUN/Creatinine Ratio 8 (6-20) 8 (6-20) Glucose Level 91 mg/dL (70-99) 85 mg/dL (70-99) Lactic Acid Level 1.3 mmol/L (0.4-2.0) 1.0 mmol/L (0.4-2.0) Calcium Level 8.3 mg/dL (8.5-10.1) 8.3 mg/dL (8.5-10.1) Magnesium Level 1.7 mg/dL (1.8-2.4) Total Bilirubin 0.4 mg/dL (0.2-1.0) 0.8 mg/dL (0.2-1.0) Aspartate Amino Transf (AST/SGOT) 26 U/L (15-37) 24 U/L (15-37) Alanine Aminotransferase (ALT/SGPT) 12 U/L (14-59) 12 U/L (14-59) Alkaline Phosphatase 100 U/L (46-116) 104 U/L (46-116) Creatine Kinase 9 U/L (26-192) Creatine Kinase MB (Mass) < 0.5 ng/mL (0.0-3.6) Creatine Kinase MB Relative Index 5.6 % (0-4) Troponin I Quantitative < 0.017 ng/mL (0.000-0.055) UY-Rgj-C-Type Natriuretic Peptide > 67970 pg/mL (0-124) Total Protein 6.1 g/dL (6.4-8.2) 5.9 g/dL (6.4-8.2) Albumin 1.3 g/dL (3.4-5.0) 1.2 g/dL (3.4-5.0) Albumin/Globulin Ratio 0.3 (1.0-1.7) 0.3 (1.0-1.7) Lipase 31 U/L (73-393) Thyroid Stimulating Hormone (TSH) 1.438 uIU/mL (0.358-3.74) Urine Opiates Screen Neg (NEG) Urine Methadone Screen Neg (NEG) Urine Barbiturates Neg (NEG) Urine Phencyclidine Screen Neg (NEG) Urine Amphetamine/Methamphetamine Neg (NEG) Urine Benzodiazepines Screen Neg (NEG) Urine Cocaine Screen Neg (NEG) Urine Cannabinoids Screen Neg (NEG) Urine Ethyl Alcohol Neg (NEG) Influenza Type A Antigen Negative (NEGATIVE) Influenza Type B Antigen Negative (NEGATIVE) Bedside Troponin I 0.02 ng/ml (<0.08) Reticulocyte Count (auto) 4.9 % (0.5-2.5) Phosphorus Level 4.1 mg/dL (2.6-4.7) Iron Level 27 ug/dL (50-170) Total Iron Binding Capacity 73 ug/dL (250-450) Iron Saturation 37 % (15-34) Prealbumin 8.1 mg/dL (16.0-42.0) Vitamin B12 Level 536 pg/mL (247-911) Random Vancomycin Level 26.0 mcg/mL Treponema pallidum Antibody Nonreactive (Nonreactive) Micro Microbiology 07/14/18 Blood Culture - Final, Complete Objective Assessment GPC - bacteremia POA 07/14 Anemia - S/p PRBCs Leukocytosis - ? reactive CKD on HD Severe Protein malnutrition Plan Plan of Care Cont Vanc F/u labs and cults Thank you # [phone] KISHOR FERRARI MD Jul 15, 2018 09:31
[2018-07-15] MEDS: SERTRALINE 50 MG TABLET. PO SCH (09:37)
[2018-07-15] MEDS: MEGESTROL 20 MG TABLET. PO SCH ×2 (09:37→20:24)
[2018-07-15] MEDS: VITAMIN B12,B9,B6 COMPLEX 1 TABLET. PO SCH (09:37)
[2018-07-15] MEDS: rOPINIRole 1 MG TABLET. PO SCH ×2 (09:37→20:24)
--- NOTE | 2018-07-15 10:27 | EKG ---
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
--- NOTE | 2018-07-15 10:46 | CONS ---
DATE OF CONSULTATION: 07/15/2018 LOCATION: The patient is in room 554. REQUESTING PHYSICIAN: Dr. Cardoso. REASON FOR CONSULTATION: Bacteremia. HISTORY OF PRESENT ILLNESS: The patient is a 72-year-old female with a history of chronic kidney disease, who is on dialysis every Saturday, and Saturday. She presented to [facility] Emergency Room on 07/14/2018 secondary to fatigue, complaints of some fever and weakness. She denied any shaking chills or sweats. She did not have any nausea or vomiting. She has not missed any dialysis days. She says she does make some urine occasionally and has no complications with that. On arrival, she was found to have a hemoglobin of 5.6. Urine was collected. She has 5-10 wbc's, but no bacteria. Chest x-ray was without acute process. CT scan of the head showed no acute intracranial findings. She was given a dose of Zosyn and started on vancomycin. Cultures were obtained. This morning, 2 out of 4 bottles returned positive for gram-positive cocci in clusters, suggestive of Staph; hence I have been consulted. The patient is currently feeling better. She was working with physical therapy and actually was able to sit up at the side of bed with assistance and then move into a chair. She denies any headaches. No shortness of air or cough. PAST MEDICAL HISTORY: Positive for hypertension, CVA, constipation, GI bleed, peptic ulcer disease, anxiety, depression and E. coli UTI that was pansensitive. PAST SURGICAL HISTORY: Positive for cholecystectomy, hiatal hernia repair, tonsillectomy and hysterectomy. Also has a history of dialysis access to the right chest. She is unable to say how long that has been. REVIEW OF SYSTEMS: Otherwise negative. ALLERGIES: LISTED CODEINE. SOCIAL HISTORY: No tobacco. Occasional alcohol. She quit smoking. FAMILY HISTORY: Positive for heart disease. CURRENT MEDICATIONS: Zosyn x 1, vancomycin per pharmacy, DuoNebs, Megace, Remeron, Requip, Zoloft and Tylenol. PHYSICAL EXAMINATION: VITAL SIGNS: Temperature is 98.3, pulse 84, respirations 17, blood pressure 156/83 and 98% on room air. CONSTITUTIONAL: She is cooperative. She is in no acute distress. She has a little bit of a tremor. HEENT: Pupils are equal and reactive, with normal conjunctivae. Oral cavity, pharynx is clear. NECK: Supple. No JVD. LUNGS: Clear to auscultation. HEART: S1, S2. ABDOMEN: Soft, nontender. No guarding or rebound. EXTREMITIES: No clubbing, cyanosis or gross edema. SKIN: Warm to touch, without signs of rash. NEUROLOGIC: She is nonfocal, but is somewhat of a poor historian. She seems to have a little bit of a tremor. Right chest hemodialysis catheter, without signs of complications. Affect is pleasant. LABORATORY DATA: White count was 17.7, hemoglobin 7.5, platelets of 377,000 and segs were 86. Creatinine 3.9. AST 24, ALT 12. Albumin of 1.2. Urinalysis reviewed in the history of present illness. Syphilis test is negative. Influenza was negative. Chest x-ray, prominent-appearing bilateral interstitial lung markings. IMPRESSION: 1. Gram-positive cocci bacteremia, present on admission on 07/14/2018. 2. Anemia, status post packed red blood cells. 3. Leukocytosis, questionable reactive given her anemia. Possible bacteremia related as well. 4. Chronic kidney disease, on hemodialysis. 5. Severe protein malnutrition. RECOMMENDATIONS: For now, continue vancomycin. Follow up on labs and cultures. Thank you for allowing us to participate in the care of this patient. Should you have any questions, please do not hesitate to contact me. KISHOR FERRARI MD DR: INGRID/bethany JOB#: [id number] / [id number]
[2018-07-15] MEDS ORDERED: IV NORMAL SALINE 1000ML BAG 1,000 ML IV PRN ×2 (10:48)
[2018-07-15] MEDS ORDERED: ALBUMIN HUMAN 25% 200 ML IV PRN (11:00)
[2018-07-15] MEDS ORDERED: DIALYSIS PATIENT. MC PRN ×2 (11:00)
--- NOTE | 2018-07-15 11:31 | PDOC2 ---
CONSULT Date of Consult Date of Consult DATE: 07/15/18 TIME: 11:18 Reason for Consult Reason for Consult: ESRD Source Source: Chart review, Patient History of Present Illness Reason for Visit: Pt is 72-year-old CF ESRD on HD TTS , last HD on Saturday . She presented to ED on 07/14/2018 with c/o fatigue, fever and weakness. She denied any chills, no nausea or vomiting. She says she does make some urine occasionally denies any urinary symptoms In the ED Hgb was 5.6, CxR without acute process. CT scan of the head no acute intracranial findings. Blood Cx 2 out of 4 bottles positive for gram-positive cocci in clusters, suggestive of Staph. Currently she reports she is feeling better. No complaints Past Medical History Cardiovascular: HTN CENTRAL NERVOUS SYSTEM: CVA, Other GI: Constipation, GI bleed, Peptic Ulcer disease Heme/Onc: Anemia NOS Hepatobiliary: No pertinent hx Psych: Anxiety, Depression Renal/: No pertinent hx Past Surgical History Past Surgical History: Cholecystectomy, Hernia Repair, Tonsillectomy, Hysterectomy, Other Family History Family History: Heart Disease Social History Quit ALCOHOL: occassional Drugs: None Current Problem List Problem List Problems Medical Problems: (1) End stage renal disease Status: Acute (2) Generalized weakness Status: Acute Current Medications Current Medications Current Medications Piperacillin Sod/ Tazobactam Sod 4.5 gm/Sodium Chloride 100 ml @ 200 mls/hr 1X ONCE IV Last administered on 07/14/18at 15:58; Start 07/14/18 at 15:00; Stop 07/14/18 at 15:29; Status DC Vancomycin HCl (Vanco Per Pharmacy) 1 each PRN DAILY PRN MC SEE COMMENTS Last administered on 07/14/18at 19:24; Start 07/14/18 at 14:45 Vancomycin HCl 1.25 gm/Sodium Chloride 250 ml @ 166.667 mls/hr 1X ONCE IV Last administered on 07/14/18at 18:10; Start 07/14/18 at 15:00; Stop 07/14/18 at 16:29; Status DC Ondansetron HCl (Zofran) 4 mg PRN Q8HRS PRN IV NAUSEA/VOMITING; Start 07/14/18 at 17:15; Stop 07/15/18 at 17:14 Morphine Sulfate (Morphine Sulfate) 2 mg PRN Q2HR PRN IV PAIN; Start 07/14/18 at 17:15; Stop 07/15/18 at 17:14 Acetaminophen (Tylenol) 650 mg PRN Q4HRS PRN PO FEVER; Start 07/14/18 at 17:15 ; Stop 07/15/18 at 17:14 Vancomycin HCl (Vancomycin Random Level) 1 each 1X ONCE MC ; Start 07/15/18 at 06:00; Stop 07/15/18 at 06:01; Status DC Vitamin B Complex/ Vitamin C (Dinorah-Ralph) 1 tab QPM PO ; Start 07/15/18 at 18:00 Megestrol Acetate (Megace) 40 mg BID PO Last administered on 07/15/18 09:37; Start 07/15/18 at 09:00 Mirtazapine (Remeron) 15 mg QHS PO Last administered on 07/14/18at 22:13; Start 07/14/18 at 22:00 Non-Formulary Medication (Mirtazapine ) 1 tab QHS PO ; Start 07/15/18 at 21:00; Status UNV Ropinirole HCl (Requip) 3 mg BID PO Last administered on 07/15/18 09:37; Start 07/14/18 at 22:00 Sertraline HCl (Zoloft) 100 mg DAILY PO Last administered on 07/15/18 09:37; Start 07/15/18 at 09:00 Phytonadione (Mephyton Oral Soln) 5 mg 1X ONCE PO Last administered on at 22:14; Start 07/14/18 at 22:00; Stop 07/14/18 at 22:01; Status DC Vitamin B Complex (Folbic Tablet) 1 tab DAILY PO Last administered on 09:37; Start 07/15/18 at 09:00 Albuterol/ Ipratropium (Duoneb) 3 ml RTBID NEB Last administered on 07/15/18at 07:19; Start 07/15/18 at 08:00 Sodium Chloride 1,000 ml @ 1,000 mls/hr Q1H PRN IV hypotension; Start 07/15/18 at 10:48; Stop 07/15/18 at 16:47 Albumin Human 200 ml @ 200 mls/hr 1X PRN PRN IV Hypotension; Start 07/15/18 at 11:00; Stop 07/15/18 at 16:59 Sodium Chloride 1,000 ml @ 400 mls/hr Q2H30M PRN IV PATENCY; Start 07/15/18 at 10:48; Stop 07/15/18 at 22:47 Info (PHARMACY MONITORING -- do not chart) 1 each PRN DAILY PRN MC SEE COMMENTS ; Start 07/15/18 at 11:00; Status UNV Info (PHARMACY MONITORING -- do not chart) 1 each PRN DAILY PRN MC SEE COMMENTS ; Start 07/15/18 at 11:00 Active Scripts Active Reported Dialyvite Tablet (Folic Acid/Vitamin B Comp W-C) 1 Each Tablet 1 Each PO QPM QPM @ 1900 [hectorol] QTUTHSA [epogen] QTUTHSA Mirtazapine 15 Mg Tablet 1 Tab PO QHS Zoloft (Sertraline Hcl) 100 Mg Tablet 1 Tab PO DAILY Requip (Ropinirole Hcl) 1 Mg Tablet 3 Mg PO BID Mirtazapine 15 Mg Tablet 1 Tab PO QHS Megestrol Acetate 40 Mg Tablet 40 Mg PO BID Allergies Allergies: Coded Allergies: codeine (Verified Allergy, Intermediate, Hives, 05/02/16) ROS Review of System As per HPI Physical Exam Physical Exam GEN- no acute distress HEENT: OM moist NECK: Supple. LUNGS: Clear to auscultation. HEART: S1, S2. ABDOMEN: Soft, nontender EXTREMITIES: No clubbing, cyanosis or gross edema. SKIN: No rash NEUROLOGIC: Grossly normal, mild tremor Right HD Catheter No Cm Vital Signs Vital Signs Date Time Temp Pulse Resp B/P (MAP) Pulse Ox O2 Delivery O2 Flow Rate FiO2 07/15/18 10:55 98.0 99 18 113/75 (88) 98 Room Air 98.0 Assessment & Plan ESRD- On HD TTS Last HD Saturday HD today as per her schedule Discussed with chairman Hypokalemia - HD today Adjust the K in Dialysate Anemia- Hgb<7 on admission - s/p PRBC Aranesp Gram-positive cocci bacteremia- ID following Severe Protein Malnutrition Labs Labs Laboratory Tests Test 07/14/18 15:05 07/14/18 15:15 07/14/18 17:57 07/15/18 02:30 White Blood Count 16.6 x10^3/uL (4.0-11.0) 17.7 x10^3/uL (4.0-11.0) Red Blood Count 2.18 x10^6/uL (3.50-5.40) 2.89 x10^6/uL (3.50-5.40) Hemoglobin 5.6 g/dL (12.0-15.5) 7.5 g/dL (12.0-15.5) Hematocrit 18.1 % (36.0-47.0) 23.6 % (36.0-47.0) Mean Corpuscular Volume 83 fL (79-100) 82 fL (79-100) Mean Corpuscular Hemoglobin 26 pg (25-35) 26 pg (25-35) Mean Corpuscular Hemoglobin Concent 31 g/dL (31-37) 32 g/dL (31-37) Red Cell Distribution Width 19.2 % (11.5-14.5) 17.6 % (11.5-14.5) Platelet Count 366 x10^3/uL (140-400) 377 x10^3/uL (140-400) Neutrophils (%) (Auto) 88 % (31-73) 86 % (31-73) Lymphocytes (%) (Auto) 7 % (24-48) 7 % (24-48) Monocytes (%) (Auto) 5 % (0-9) 6 % (0-9) Eosinophils (%) (Auto) 0 % (0-3) 1 % (0-3) Basophils (%) (Auto) 0 % (0-3) 0 % (0-3) Neutrophils # (Auto) 14.5 x10^3uL (1.8-7.7) 15.2 x10^3uL (1.8-7.7) Lymphocytes # (Auto) 1.2 x10^3/uL (1.0-4.8) 1.2 x10^3/uL (1.0-4.8) Monocytes # (Auto) 0.8 x10^3/uL (0.0-1.1) 1.0 x10^3/uL (0.0-1.1) Eosinophils # (Auto) 0.1 x10^3/uL (0.0-0.7) 0.2 x10^3/uL (0.0-0.7) Basophils # (Auto) 0.0 x10^3/uL (0.0-0.2) 0.1 x10^3/uL (0.0-0.2) Segmented Neutrophils % 85 % (35-66) Band Neutrophils % 8 % (0-9) Lymphocytes % 4 % (24-48) Monocytes % 3 % (0-10) Platelet Estimate Adequate (ADEQUATE) Polychromasia Slight Poikilocytosis Slight Anisocytosis Slight Prothrombin Time 17.2 SEC (11.7-14.0) Prothromb Time International Ratio 1.4 (0.8-1.1) Activated Partial Thromboplast Time 47 SEC (24-38) Urine Collection Type U cath Urine Color Yellow Urine Clarity Clear Urine pH 8.0 Urine Specific [place] 1.015 Urine Protein 100 mg/dL (NEG-TRACE) Urine Glucose (UA) Negative mg/dL (NEG) Urine Ketones (Stick) Negative mg/dL (NEG) Urine Blood Negative (NEG) Urine Nitrite Negative (NEG) Urine Bilirubin Negative (NEG) Urine Urobilinogen Dipstick 1.0 mg/dL (0.2 mg/dL) Urine Leukocyte Esterase Trace (NEG) Urine RBC 0 /HPF (0-2) Urine WBC 5-10 /HPF (0-4) Urine Bacteria 0 /HPF (0-FEW) Urine Hyaline Casts Moderate /HPF Urine Mucus Mod /LPF Urine Yeast Present /HPF Sodium Level 139 mmol/L (136-145) 138 mmol/L (136-145) Potassium Level 3.3 mmol/L (3.5-5.1) 3.3 mmol/L (3.5-5.1) Chloride Level 102 mmol/L (98-107) 103 mmol/L (98-107) Carbon Dioxide Level 28 mmol/L (21-32) 25 mmol/L (21-32) Anion Gap 9 (6-14) 10 (6-14) Blood Urea Nitrogen 29 mg/dL (7-20) 33 mg/dL (7-20) Creatinine 3.8 mg/dL (0.6-1.0) 3.9 mg/dL (0.6-1.0) Estimated GFR (Cockcroft-Gault) 11.7 11.4 BUN/Creatinine Ratio 8 (6-20) 8 (6-20) Glucose Level 91 mg/dL (70-99) 85 mg/dL (70-99) Lactic Acid Level 1.3 mmol/L (0.4-2.0) 1.0 mmol/L (0.4-2.0) Calcium Level 8.3 mg/dL (8.5-10.1) 8.3 mg/dL (8.5-10.1) Magnesium Level 1.7 mg/dL (1.8-2.4) Total Bilirubin 0.4 mg/dL (0.2-1.0) 0.8 mg/dL (0.2-1.0) Aspartate Amino Transf (AST/SGOT) 26 U/L (15-37) 24 U/L (15-37) Alanine Aminotransferase (ALT/SGPT) 12 U/L (14-59) 12 U/L (14-59) Alkaline Phosphatase 100 U/L (46-116) 104 U/L (46-116) Creatine Kinase 9 U/L (26-192) Creatine Kinase MB (Mass) < 0.5 ng/mL (0.0-3.6) Creatine Kinase MB Relative Index 5.6 % (0-4) Troponin I Quantitative < 0.017 ng/mL (0.000-0.055) BI-Dho-M-Type Natriuretic Peptide > 49491 pg/mL (0-124) Total Protein 6.1 g/dL (6.4-8.2) 5.9 g/dL (6.4-8.2) Albumin 1.3 g/dL (3.4-5.0) 1.2 g/dL (3.4-5.0) Albumin/Globulin Ratio 0.3 (1.0-1.7) 0.3 (1.0-1.7) Lipase 31 U/L (73-393) Thyroid Stimulating Hormone (TSH) 1.438 uIU/mL (0.358-3.74) Urine Opiates Screen Neg (NEG) Urine Methadone Screen Neg (NEG) Urine Barbiturates Neg (NEG) Urine Phencyclidine Screen Neg (NEG) Urine Amphetamine/Methamphetamine Neg (NEG) Urine Benzodiazepines Screen Neg (NEG) Urine Cocaine Screen Neg (NEG) Urine Cannabinoids Screen Neg (NEG) Urine Ethyl Alcohol Neg (NEG) Influenza Type A Antigen Negative (NEGATIVE) Influenza Type B Antigen Negative (NEGATIVE) Bedside Troponin I 0.02 ng/ml (<0.08) Reticulocyte Count (auto) 4.9 % (0.5-2.5) Phosphorus Level 4.1 mg/dL (2.6-4.7) Iron Level 27 ug/dL (50-170) Total Iron Binding Capacity 73 ug/dL (250-450) Iron Saturation 37 % (15-34) Prealbumin 8.1 mg/dL (16.0-42.0) Vitamin B12 Level 536 pg/mL (247-911) Random Vancomycin Level 26.0 mcg/mL Treponema pallidum Antibody Nonreactive (Nonreactive) Laboratory Tests Test 07/14/18 15:05 07/14/18 15:15 07/14/18 17:57 07/15/18 02:30 White Blood Count 16.6 x10^3/uL (4.0-11.0) 17.7 x10^3/uL (4.0-11.0) Red Blood Count 2.18 x10^6/uL (3.50-5.40) 2.89 x10^6/uL (3.50-5.40) Hemoglobin 5.6 g/dL (12.0-15.5) 7.5 g/dL (12.0-15.5) Hematocrit 18.1 % (36.0-47.0) 23.6 % (36.0-47.0) Mean Corpuscular Volume 83 fL (79-100) 82 fL (79-100) Mean Corpuscular Hemoglobin 26 pg (25-35) 26 pg (25-35) Mean Corpuscular Hemoglobin Concent 31 g/dL (31-37) 32 g/dL (31-37) Red Cell Distribution Width 19.2 % (11.5-14.5) 17.6 % (11.5-14.5) Platelet Count 366 x10^3/uL (140-400) 377 x10^3/uL (140-400) Neutrophils (%) (Auto) 88 % (31-73) 86 % (31-73) Lymphocytes (%) (Auto) 7 % (24-48) 7 % (24-48) Monocytes (%) (Auto) 5 % (0-9) 6 % (0-9) Eosinophils (%) (Auto) 0 % (0-3) 1 % (0-3) Basophils (%) (Auto) 0 % (0-3) 0 % (0-3) Neutrophils # (Auto) 14.5 x10^3uL (1.8-7.7) 15.2 x10^3uL (1.8-7.7) Lymphocytes # (Auto) 1.2 x10^3/uL (1.0-4.8) 1.2 x10^3/uL (1.0-4.8) Monocytes # (Auto) 0.8 x10^3/uL (0.0-1.1) 1.0 x10^3/uL (0.0-1.1) Eosinophils # (Auto) 0.1 x10^3/uL (0.0-0.7) 0.2 x10^3/uL (0.0-0.7) Basophils # (Auto) 0.0 x10^3/uL (0.0-0.2) 0.1 x10^3/uL (0.0-0.2) Segmented Neutrophils % 85 % (35-66) Band Neutrophils % 8 % (0-9) Lymphocytes % 4 % (24-48) Monocytes % 3 % (0-10) Platelet Estimate Adequate (ADEQUATE) Polychromasia Slight Poikilocytosis Slight Anisocytosis Slight Prothrombin Time 17.2 SEC (11.7-14.0) Prothromb Time International Ratio 1.4 (0.8-1.1) Activated Partial Thromboplast Time 47 SEC (24-38) Urine Collection Type U cath Urine Color Yellow Urine Clarity Clear Urine pH 8.0 Urine Specific [place] 1.015 Urine Protein 100 mg/dL (NEG-TRACE) Urine Glucose (UA) Negative mg/dL (NEG) Urine Ketones (Stick) Negative mg/dL (NEG) Urine Blood Negative (NEG) Urine Nitrite Negative (NEG) Urine Bilirubin Negative (NEG) Urine Urobilinogen Dipstick 1.0 mg/dL (0.2 mg/dL) Urine Leukocyte Esterase Trace (NEG) Urine RBC 0 /HPF (0-2) Urine WBC 5-10 /HPF (0-4) Urine Bacteria 0 /HPF (0-FEW) Urine Hyaline Casts Moderate /HPF Urine Mucus Mod /LPF Urine Yeast Present /HPF Sodium Level 139 mmol/L (136-145) 138 mmol/L (136-145) Potassium Level 3.3 mmol/L (3.5-5.1) 3.3 mmol/L (3.5-5.1) Chloride Level 102 mmol/L (98-107) 103 mmol/L (98-107) Carbon Dioxide Level 28 mmol/L (21-32) 25 mmol/L (21-32) Anion Gap 9 (6-14) 10 (6-14) Blood Urea Nitrogen 29 mg/dL (7-20) 33 mg/dL (7-20) Creatinine 3.8 mg/dL (0.6-1.0) 3.9 mg/dL (0.6-1.0) Estimated GFR (Cockcroft-Gault) 11.7 11.4 BUN/Creatinine Ratio 8 (6-20) 8 (6-20) Glucose Level 91 mg/dL (70-99) 85 mg/dL (70-99) Lactic Acid Level 1.3 mmol/L (0.4-2.0) 1.0 mmol/L (0.4-2.0) Calcium Level 8.3 mg/dL (8.5-10.1) 8.3 mg/dL (8.5-10.1) Magnesium Level 1.7 mg/dL (1.8-2.4) Total Bilirubin 0.4 mg/dL (0.2-1.0) 0.8 mg/dL (0.2-1.0) Aspartate Amino Transf (AST/SGOT) 26 U/L (15-37) 24 U/L (15-37) Alanine Aminotransferase (ALT/SGPT) 12 U/L (14-59) 12 U/L (14-59) Alkaline Phosphatase 100 U/L (46-116) 104 U/L (46-116) Creatine Kinase 9 U/L (26-192) Creatine Kinase MB (Mass) < 0.5 ng/mL (0.0-3.6) Creatine Kinase MB Relative Index 5.6 % (0-4) Troponin I Quantitative < 0.017 ng/mL (0.000-0.055) ZI-Zos-V-Type Natriuretic Peptide > 61368 pg/mL (0-124) Total Protein 6.1 g/dL (6.4-8.2) 5.9 g/dL (6.4-8.2) Albumin 1.3 g/dL (3.4-5.0) 1.2 g/dL (3.4-5.0) Albumin/Globulin Ratio 0.3 (1.0-1.7) 0.3 (1.0-1.7) Lipase 31 U/L (73-393) Thyroid Stimulating Hormone (TSH) 1.438 uIU/mL (0.358-3.74) Urine Opiates Screen Neg (NEG) Urine Methadone Screen Neg (NEG) Urine Barbiturates Neg (NEG) Urine Phencyclidine Screen Neg (NEG) Urine Amphetamine/Methamphetamine Neg (NEG) Urine Benzodiazepines Screen Neg (NEG) Urine Cocaine Screen Neg (NEG) Urine Cannabinoids Screen Neg (NEG) Urine Ethyl Alcohol Neg (NEG) Influenza Type A Antigen Negative (NEGATIVE) Influenza Type B Antigen Negative (NEGATIVE) Bedside Troponin I 0.02 ng/ml (<0.08) Reticulocyte Count (auto) 4.9 % (0.5-2.5) Phosphorus Level 4.1 mg/dL (2.6-4.7) Iron Level 27 ug/dL (50-170) Total Iron Binding Capacity 73 ug/dL (250-450) Iron Saturation 37 % (15-34) Prealbumin 8.1 mg/dL (16.0-42.0) Vitamin B12 Level 536 pg/mL (247-911) Random Vancomycin Level 26.0 mcg/mL Treponema pallidum Antibody Nonreactive (Nonreactive) Review All relevant outside records, renal labs, imaging studies, telemetry/EKG's were reviewed. ANNA ZHANG MD Jul 15, 2018 11:31
[2018-07-15] MEDS: VANCOMYCIN PER PHARMACY MC PRN ×2 (13:08→13:12)
--- NOTE | 2018-07-15 13:09 | NUR ---
Pharmacy Vancomycin Dosing Note S:Consulted to monitor and dose vancomycin started 07/14/18. O:TYLER GUTIERREZ is a 72 year old F with HCAP . Height: 5 feet, 3 inches Weight: 46.743027 kg [place] Body Weight: 52.40 Adjusted Body Weight: 50.24 Dosing Weight: Actual Other Antibiotics: ZOSYN X1 07/14 LABS: Last BUN: 29 Last Creatinine: 3.8 Creatinine Clearance: ESRD HD TTS mL/min Last WBC: 17.47 Last Procalcitonin: N/A, ESRD Tmax (past 24 hours): 98.7 Microbiology: 07/14 STAP 3:4 I/O: 480/ Drug Levels: Last Random level: 26 on 07/15/18 at 0230 Last dose given 07/14/18 at 1810 Vancomycin Dosing: Loading Dose: x1 Dosing Weight: Actual Target Trough: 15-20 A: Based on: LEVEL PRIOR TO DIALYSIS, POST DIALYSIS WILL BE AROUND 19.5 P: 1. START Vancomycin 500MG AFTER EACH DIALYSIS TTHSAT WITH NEXT ONE ON MONDAY 07/17 2. Follow up Random level NEEDED 3. Pharmacy will continue to monitor, follow and adjust therapy as needed. CASSY ESTEVES [facility], 07/15/18 [id number]
--- NOTE | 2018-07-15 14:21 | NUR ---
SW following. Discussed with RN, pt is from home with family and has dialysis [facility] Love Sat. RN advised no SW needs at this time. SW will continue to follow.
[2018-07-15] MEDS: FOLIC/VIT B COMP W-C (RENAL) TABLET. PO SCH (18:30)
[2018-07-15] MEDS: MIRTAZAPINE 15 MG TABLET PO SCH (20:24)
[2018-07-15] MEDS ORDERED: MIRTAZAPINE PO SCH (21:00)
[2018-07-16 03:00] VITALS: BP 151/97
[2018-07-16 03:53] LABS: BASO % 0 % (0-3); EOS # 0.1 x10^3/uL (0.0-0.7); EOS % 1 % (0-3); HEMATOCRIT 24.5 % (36.0-47.0); HEMOGLOBIN 7.7 g/dL (12.0-15.5); LYMPH # 1.4 x10^3/uL (1.0-4.8); LYMPH % 8 % (24-48); MEAN CORPUSCULAR HEMOGLOBIN 26 pg (25-35); MEAN CORPUSCULAR HGB CONC 32 g/dL (31-37); MEAN CORPUSCULAR VOLUME 83 fL (79-100); MONO # 1.1 x10^3/uL (0.0-1.1); MONO % 6 % (0-9); NEUT # 16.3 x10^3uL (1.8-7.7); NEUT % 86 % (31-73); PLATELET COUNT 410 x10^3/uL (140-400); RED BLOOD COUNT 2.96 x10^6/uL (3.50-5.40); RED CELL DISTRIBUTION WIDTH 18.2 % (11.5-14.5)
[2018-07-16 07:00] VITALS: BP 153/88
--- NOTE | 2018-07-16 07:27 | PDOC ---
PROGRESS NOTES Chief Complaint Chief Complaint Acute Anemia Leukocytosis - likely UTI Vascular dementia HTN Anxiety Depression End-stage renal disease on dialysis Saturday, Saturday, (new dx 2019) History of Present Illness History of Present Illness 72 yo f w/ PMHx CVA with vascular dementia, HTN, anxiety, depression, end-stage renal disease on dialysis Saturday, Saturday, (new dx 2019), last dialyzed on Saturday who p/w fever, decreased appetite, fever, decreased energy/ weakness, symptoms began 3 days ago. Found with Hb of 5.6 in ED, transfused PRBC to 7.5 She has history dementia but she is alert to person only, but is able to carry on a conversation and give some health history. She does not refuse dialysis today. She was seen here this past January 2018 and May 2018 and sent home with home health ([facility]). She has a DPOA, Ivy the nephew has been texting who has been informed of hospital admission. 07/15: Seen on dialysis today. She has some chills with this. Notably, lab called about 3/4 bottles positive on blood culture for GPC in clusters. Feeling terrible today. Has diarrhea x2 this morning, not foul smelling. She has bilateral LQ pain. A/P: Gram-positive cocci bacteremia, present on admission on 07/14/2018 - consult ID , owen Diarrhea - will check c. diff. If negative ok for immodium Anemia, status post packed red blood cells - will monitor Leukocytosis - now with HR 99, she meets criteria for SIRS and with bacteremia this is SEPSIS, poa. Could possibly simply be reactive due to her anemia ESRD - on hemodialysis. Nephrology consulted Severe protein malnutrition - likely 2/2 her dementia and currently infectious process Cont inpatient Vitals Vitals Vital Signs Date Time Temp Pulse Resp B/P (MAP) Pulse Ox O2 Delivery O2 Flow Rate FiO2 07/16/18 07:00 99.0 91 18 153/88 (109) 100 Room Air 99.0 Physical Exam General: Cooperative, No acute distress, Other (poorly oriented) Lungs: Clear Abdomen: Normal bowel sounds, Soft Extremities: No cyanosis, Normal pulses Skin: No rashes, No significant lesion Labs LABS Laboratory Tests Test 07/16/18 02:35 White Blood Count 19.0 x10^3/uL (4.0-11.0) Red Blood Count 2.96 x10^6/uL (3.50-5.40) Hemoglobin 7.7 g/dL (12.0-15.5) Hematocrit 24.5 % (36.0-47.0) Mean Corpuscular Volume 83 fL (79-100) Mean Corpuscular Hemoglobin 26 pg (25-35) Mean Corpuscular Hemoglobin Concent 32 g/dL (31-37) Red Cell Distribution Width 18.2 % (11.5-14.5) Platelet Count 410 x10^3/uL (140-400) Neutrophils (%) (Auto) 86 % (31-73) Lymphocytes (%) (Auto) 8 % (24-48) Monocytes (%) (Auto) 6 % (0-9) Eosinophils (%) (Auto) 1 % (0-3) Basophils (%) (Auto) 0 % (0-3) Neutrophils # (Auto) 16.3 x10^3uL (1.8-7.7) Lymphocytes # (Auto) 1.4 x10^3/uL (1.0-4.8) Monocytes # (Auto) 1.1 x10^3/uL (0.0-1.1) Eosinophils # (Auto) 0.1 x10^3/uL (0.0-0.7) Basophils # (Auto) 0.0 x10^3/uL (0.0-0.2) Assessment and Plan Assessmemt and Plan Problems Medical Problems: (1) End stage renal disease Status: Acute (2) Generalized weakness Status: Acute Comment Review of Relevant I have reviewed the following items linda (where applicable) has been applied. Labs Laboratory Tests Test 07/14/18 15:05 07/14/18 15:15 07/14/18 17:57 07/15/18 02:30 White Blood Count 16.6 x10^3/uL (4.0-11.0) 17.7 x10^3/uL (4.0-11.0) Red Blood Count 2.18 x10^6/uL (3.50-5.40) 2.89 x10^6/uL (3.50-5.40) Hemoglobin 5.6 g/dL (12.0-15.5) 7.5 g/dL (12.0-15.5) Hematocrit 18.1 % (36.0-47.0) 23.6 % (36.0-47.0) Mean Corpuscular Volume 83 fL (79-100) 82 fL (79-100) Mean Corpuscular Hemoglobin 26 pg (25-35) 26 pg (25-35) Mean Corpuscular Hemoglobin Concent 31 g/dL (31-37) 32 g/dL (31-37) Red Cell Distribution Width 19.2 % (11.5-14.5) 17.6 % (11.5-14.5) Platelet Count 366 x10^3/uL (140-400) 377 x10^3/uL (140-400) Neutrophils (%) (Auto) 88 % (31-73) 86 % (31-73) Lymphocytes (%) (Auto) 7 % (24-48) 7 % (24-48) Monocytes (%) (Auto) 5 % (0-9) 6 % (0-9) Eosinophils (%) (Auto) 0 % (0-3) 1 % (0-3) Basophils (%) (Auto) 0 % (0-3) 0 % (0-3) Neutrophils # (Auto) 14.5 x10^3uL (1.8-7.7) 15.2 x10^3uL (1.8-7.7) Lymphocytes # (Auto) 1.2 x10^3/uL (1.0-4.8) 1.2 x10^3/uL (1.0-4.8) Monocytes # (Auto) 0.8 x10^3/uL (0.0-1.1) 1.0 x10^3/uL (0.0-1.1) Eosinophils # (Auto) 0.1 x10^3/uL (0.0-0.7) 0.2 x10^3/uL (0.0-0.7) Basophils # (Auto) 0.0 x10^3/uL (0.0-0.2) 0.1 x10^3/uL (0.0-0.2) Segmented Neutrophils % 85 % (35-66) Band Neutrophils % 8 % (0-9) Lymphocytes % 4 % (24-48) Monocytes % 3 % (0-10) Platelet Estimate Adequate (ADEQUATE) Polychromasia Slight Poikilocytosis Slight Anisocytosis Slight Prothrombin Time 17.2 SEC (11.7-14.0) Prothromb Time International Ratio 1.4 (0.8-1.1) Activated Partial Thromboplast Time 47 SEC (24-38) Urine Collection Type U cath Urine Color Yellow Urine Clarity Clear Urine pH 8.0 Urine Specific [place] 1.015 Urine Protein 100 mg/dL (NEG-TRACE) Urine Glucose (UA) Negative mg/dL (NEG) Urine Ketones (Stick) Negative mg/dL (NEG) Urine Blood Negative (NEG) Urine Nitrite Negative (NEG) Urine Bilirubin Negative (NEG) Urine Urobilinogen Dipstick 1.0 mg/dL (0.2 mg/dL) Urine Leukocyte Esterase Trace (NEG) Urine RBC 0 /HPF (0-2) Urine WBC 5-10 /HPF (0-4) Urine Bacteria 0 /HPF (0-FEW) Urine Hyaline Casts Moderate /HPF Urine Mucus Mod /LPF Urine Yeast Present /HPF Sodium Level 139 mmol/L (136-145) 138 mmol/L (136-145) Potassium Level 3.3 mmol/L (3.5-5.1) 3.3 mmol/L (3.5-5.1) Chloride Level 102 mmol/L (98-107) 103 mmol/L (98-107) Carbon Dioxide Level 28 mmol/L (21-32) 25 mmol/L (21-32) Anion Gap 9 (6-14) 10 (6-14) Blood Urea Nitrogen 29 mg/dL (7-20) 33 mg/dL (7-20) Creatinine 3.8 mg/dL (0.6-1.0) 3.9 mg/dL (0.6-1.0) Estimated GFR (Cockcroft-Gault) 11.7 11.4 BUN/Creatinine Ratio 8 (6-20) 8 (6-20) Glucose Level 91 mg/dL (70-99) 85 mg/dL (70-99) Lactic Acid Level 1.3 mmol/L (0.4-2.0) 1.0 mmol/L (0.4-2.0) Calcium Level 8.3 mg/dL (8.5-10.1) 8.3 mg/dL (8.5-10.1) Magnesium Level 1.7 mg/dL (1.8-2.4) Total Bilirubin 0.4 mg/dL (0.2-1.0) 0.8 mg/dL (0.2-1.0) Aspartate Amino Transf (AST/SGOT) 26 U/L (15-37) 24 U/L (15-37) Alanine Aminotransferase (ALT/SGPT) 12 U/L (14-59) 12 U/L (14-59) Alkaline Phosphatase 100 U/L (46-116) 104 U/L (46-116) Creatine Kinase 9 U/L (26-192) Creatine Kinase MB (Mass) < 0.5 ng/mL (0.0-3.6) Creatine Kinase MB Relative Index 5.6 % (0-4) Troponin I Quantitative < 0.017 ng/mL (0.000-0.055) EW-Kze-L-Type Natriuretic Peptide > 95320 pg/mL (0-124) Total Protein 6.1 g/dL (6.4-8.2) 5.9 g/dL (6.4-8.2) Albumin 1.3 g/dL (3.4-5.0) 1.2 g/dL (3.4-5.0) Albumin/Globulin Ratio 0.3 (1.0-1.7) 0.3 (1.0-1.7) Lipase 31 U/L (73-393) Thyroid Stimulating Hormone (TSH) 1.438 uIU/mL (0.358-3.74) Urine Opiates Screen Neg (NEG) Urine Methadone Screen Neg (NEG) Urine Barbiturates Neg (NEG) Urine Phencyclidine Screen Neg (NEG) Urine Amphetamine/Methamphetamine Neg (NEG) Urine Benzodiazepines Screen Neg (NEG) Urine Cocaine Screen Neg (NEG) Urine Cannabinoids Screen Neg (NEG) Urine Ethyl Alcohol Neg (NEG) Influenza Type A Antigen Negative (NEGATIVE) Influenza Type B Antigen Negative (NEGATIVE) Bedside Troponin I 0.02 ng/ml (<0.08) Reticulocyte Count (auto) 4.9 % (0.5-2.5) Phosphorus Level 4.1 mg/dL (2.6-4.7) Iron Level 27 ug/dL (50-170) Total Iron Binding Capacity 73 ug/dL (250-450) Iron Saturation 37 % (15-34) Prealbumin 8.1 mg/dL (16.0-42.0) Vitamin B12 Level 536 pg/mL (247-911) Random Vancomycin Level 26.0 mcg/mL Treponema pallidum Antibody Nonreactive (Nonreactive) Test 07/16/18 02:35 White Blood Count 19.0 x10^3/uL (4.0-11.0) Red Blood Count 2.96 x10^6/uL (3.50-5.40) Hemoglobin 7.7 g/dL (12.0-15.5) Hematocrit 24.5 % (36.0-47.0) Mean Corpuscular Volume 83 fL (79-100) Mean Corpuscular Hemoglobin 26 pg (25-35) Mean Corpuscular Hemoglobin Concent 32 g/dL (31-37) Red Cell Distribution Width 18.2 % (11.5-14.5) Platelet Count 410 x10^3/uL (140-400) Neutrophils (%) (Auto) 86 % (31-73) Lymphocytes (%) (Auto) 8 % (24-48) Monocytes (%) (Auto) 6 % (0-9) Eosinophils (%) (Auto) 1 % (0-3) Basophils (%) (Auto) 0 % (0-3) Neutrophils # (Auto) 16.3 x10^3uL (1.8-7.7) Lymphocytes # (Auto) 1.4 x10^3/uL (1.0-4.8) Monocytes # (Auto) 1.1 x10^3/uL (0.0-1.1) Eosinophils # (Auto) 0.1 x10^3/uL (0.0-0.7) Basophils # (Auto) 0.0 x10^3/uL (0.0-0.2) Laboratory Tests Test 07/16/18 02:35 White Blood Count 19.0 x10^3/uL (4.0-11.0) Red Blood Count 2.96 x10^6/uL (3.50-5.40) Hemoglobin 7.7 g/dL (12.0-15.5) Hematocrit 24.5 % (36.0-47.0) Mean Corpuscular Volume 83 fL (79-100) Mean Corpuscular Hemoglobin 26 pg (25-35) Mean Corpuscular Hemoglobin Concent 32 g/dL (31-37) Red Cell Distribution Width 18.2 % (11.5-14.5) Platelet Count 410 x10^3/uL (140-400) Neutrophils (%) (Auto) 86 % (31-73) Lymphocytes (%) (Auto) 8 % (24-48) Monocytes (%) (Auto) 6 % (0-9) Eosinophils (%) (Auto) 1 % (0-3) Basophils (%) (Auto) 0 % (0-3) Neutrophils # (Auto) 16.3 x10^3uL (1.8-7.7) Lymphocytes # (Auto) 1.4 x10^3/uL (1.0-4.8) Monocytes # (Auto) 1.1 x10^3/uL (0.0-1.1) Eosinophils # (Auto) 0.1 x10^3/uL (0.0-0.7) Basophils # (Auto) 0.0 x10^3/uL (0.0-0.2) Microbiology 07/14/18 Blood Culture - Final, Complete Medications Current Medications Piperacillin Sod/ Tazobactam Sod 4.5 gm/Sodium Chloride 100 ml @ 200 mls/hr 1X ONCE IV Last administered on 07/14/18at 15:58; Start 07/14/18 at 15:00; Stop 07/14/18 at 15:29; Status DC Vancomycin HCl (Vanco Per Pharmacy) 1 each PRN DAILY PRN MC SEE COMMENTS Last administered on 07/15/18at 13:12; Start 07/14/18 at 14:45 Vancomycin HCl 1.25 gm/Sodium Chloride 250 ml @ 166.667 mls/hr 1X ONCE IV Last administered on 07/14/18at 18:10; Start 07/14/18 at 15:00; Stop 07/14/18 at 16:29; Status DC Ondansetron HCl (Zofran) 4 mg PRN Q8HRS PRN IV NAUSEA/VOMITING; Start 07/14/18 at 17:15; Stop 07/15/18 at 17:14; Status DC Morphine Sulfate (Morphine Sulfate) 2 mg PRN Q2HR PRN IV PAIN; Start 07/14/18 at 17:15; Stop 07/15/18 at 17:14; Status DC Acetaminophen (Tylenol) 650 mg PRN Q4HRS PRN PO FEVER; Start 07/14/18 at 17:15 ; Stop 07/15/18 at 17:14; Status DC Vancomycin HCl (Vancomycin Random Level) 1 each 1X ONCE MC ; Start 07/15/18 at 06:00; Stop 07/15/18 at 06:01; Status DC Vitamin B Complex/ Vitamin C (Dinorah-Ralph) 1 tab QPM PO Last administered on 07/15at 18:30; Start 07/15/18 at 18:00 Megestrol Acetate (Megace) 40 mg BID PO Last administered on 07/15/18 20:24; Start 07/15/18 at 09:00 Mirtazapine (Remeron) 15 mg QHS PO Last administered on 07/15/18 20:24; Start 07/14/18 at 22:00 Non-Formulary Medication (Mirtazapine ) 1 tab QHS PO ; Start 07/15/18 at 21:00; Status UNV Ropinirole HCl (Requip) 3 mg BID PO Last administered on 07/15/18 20:24; Start 07/14/18 at 22:00 Sertraline HCl (Zoloft) 100 mg DAILY PO Last administered on 07/15/18at 09:37; Start 07/15/18 at 09:00 Phytonadione (Mephyton Oral Soln) 5 mg 1X ONCE PO Last administered on at 22:14; Start 07/14/18 at 22:00; Stop 07/14/18 at 22:01; Status DC Vitamin B Complex (Folbic Tablet) 1 tab DAILY PO Last administered on at 09:37; Start 07/15/18 at 09:00 Albuterol/ Ipratropium (Duoneb) 3 ml RTBID NEB Last administered on 07/15/18at 20:25; Start 07/15/18 at 08:00 Sodium Chloride 1,000 ml @ 1,000 mls/hr Q1H PRN IV hypotension; Start 07/15/18 at 10:48; Stop 07/15/18 at 16:47; Status DC Albumin Human 200 ml @ 200 mls/hr 1X PRN PRN IV Hypotension; Start 07/15/18 at 11:00; Stop 07/15/18 at 16:59; Status DC Sodium Chloride 1,000 ml @ 400 mls/hr Q2H30M PRN IV PATENCY; Start 07/15/18 at 10:48; Stop 07/15/18 at 22:47; Status DC Info (PHARMACY MONITORING -- do not chart) 1 each PRN DAILY PRN MC SEE COMMENTS ; Start 07/15/18 at 11:00; Status UNV Info (PHARMACY MONITORING -- do not chart) 1 each PRN DAILY PRN MC SEE COMMENTS ; Start 07/15/18 at 11:00 Vancomycin HCl 500 mg/Sodium Chloride 100 ml @ 100 mls/hr QTUTHSA IV ; Start at 16:00 Active Scripts Active Reported Dialyvite Tablet (Folic Acid/Vitamin B Comp W-C) 1 Each Tablet 1 Each PO QPM QPM @ 1900 [hectorol] QTUTHSA [epogen] QTUTHSA Mirtazapine 15 Mg Tablet 1 Tab PO QHS Zoloft (Sertraline Hcl) 100 Mg Tablet 1 Tab PO DAILY Requip (Ropinirole Hcl) 1 Mg Tablet 3 Mg PO BID Mirtazapine 15 Mg Tablet 1 Tab PO QHS Megestrol Acetate 40 Mg Tablet 40 Mg PO BID Vitals/I & O Vital Sign - Last 24 Hours 07/15/18 07/15/18 07/15/18 07/15/18 08:00 10:55 19:00 20:00 Temp 98.0 98.7 98.0 98.7 Pulse 99 96 Resp 20 B/P (MAP) 113/75 (88) 120/78 (92) Pulse Ox 98 96 O2 Delivery Room Air Room Air Room Air Room Air 07/15/18 07/15/18 07/16/18 07/16/18 20:28 22:40 03:00 07:00 Temp 98.8 98.9 99.0 98.8 98.9 99.0 Pulse 93 93 91 Resp 18 B/P (MAP) 133/85 (101) 151/97 (115) 153/88 (109) Pulse Ox 97 97 97 100 O2 Delivery Room Air Room Air Room Air Room Air Intake and Output 07/15/18 07/15/18 07/16/18 15:00 23:00 07:00 Intake Total 50 ml 0 ml Output Total 0 ml Balance 0 ml 50 ml 0 ml Nutrition Consultation Dietary Evaluation: Recommendations by RD: Add supplement feedings Comments: added nepro bid Expected Outcomes/Goals: po intake to improve to 50% of meals Interpretation of weight loss: >1-2% in 1 week Malnutrition Findings: Food and Nutrition Intake (Sev: <50% est energy req 5days Body Fat Depletion (Non Severe: Mod to Severe Weight Status: Underweight SOFIYA MCCORMACK MD Jul 16, 2018 07:27
[2018-07-16] MEDS: IPRATRPIUM/ALBUTEROL 0.5/2.5MG 3 ML NEBU. NEB SCH ×2 (07:35→21:07)
[2018-07-16] MEDS: SERTRALINE 50 MG TABLET. PO SCH (08:16)
[2018-07-16] MEDS: VITAMIN B12,B9,B6 COMPLEX 1 TABLET. PO SCH (08:16)
[2018-07-16] MEDS: rOPINIRole 1 MG TABLET. PO SCH ×3 (08:16→22:35)
[2018-07-16] MEDS: MEGESTROL 20 MG TABLET. PO SCH ×2 (08:17→22:36)
--- NOTE | 2018-07-16 10:08 | PDOC ---
Infectious Disease Note Subjective Subjective Has some abd discomfort today. Occ loose stool No F/C/S/SOA/rash Occ Nausea no vomit ROS ROS o/w neg Vital Sign Vital Signs Vital Signs Date Time Temp Pulse Resp B/P (MAP) Pulse Ox O2 Delivery O2 Flow Rate FiO2 07/16/18 08:22 Room Air 07/16/18 07:36 98 07/16/18 07:00 99.0 91 18 153/88 (109) 99.0 Physical Exam PHYSICAL EXAM CONSTITUTIONAL: She is cooperative. She is in no acute distress. She has a little bit of a tremor. she is in bed HEENT: Pupils are equal and reactive, with normal conjunctivae. Oral cavity, pharynx - mild thrush NECK: Supple. No JVD. LUNGS: Clear to auscultation. HEART: S1, S2. ABDOMEN: Soft, mild nontender. No guarding or rebound. EXTREMITIES: No clubbing, cyanosis or gross edema. SKIN: Warm to touch, without signs of rash. NEUROLOGIC: She is nonfocal, but is somewhat of a poor historian. She seems to have a little bit of a tremor. Right chest hemodialysis catheter, without signs of complications. Affect is pleasant. Labs Lab Laboratory Tests Test 07/16/18 02:35 White Blood Count 19.0 x10^3/uL (4.0-11.0) Red Blood Count 2.96 x10^6/uL (3.50-5.40) Hemoglobin 7.7 g/dL (12.0-15.5) Hematocrit 24.5 % (36.0-47.0) Mean Corpuscular Volume 83 fL (79-100) Mean Corpuscular Hemoglobin 26 pg (25-35) Mean Corpuscular Hemoglobin Concent 32 g/dL (31-37) Red Cell Distribution Width 18.2 % (11.5-14.5) Platelet Count 410 x10^3/uL (140-400) Neutrophils (%) (Auto) 86 % (31-73) Lymphocytes (%) (Auto) 8 % (24-48) Monocytes (%) (Auto) 6 % (0-9) Eosinophils (%) (Auto) 1 % (0-3) Basophils (%) (Auto) 0 % (0-3) Neutrophils # (Auto) 16.3 x10^3uL (1.8-7.7) Lymphocytes # (Auto) 1.4 x10^3/uL (1.0-4.8) Monocytes # (Auto) 1.1 x10^3/uL (0.0-1.1) Eosinophils # (Auto) 0.1 x10^3/uL (0.0-0.7) Basophils # (Auto) 0.0 x10^3/uL (0.0-0.2) Micro Microbiology 07/14/18 Blood Culture - Final, Complete Objective Assessment GPC - bacteremia POA 07/14 3/4 bottles Thrush Anemia - S/p PRBCs Leukocytosis - ? reactive increased today CKD on HD Severe Protein malnutrition Plan Plan of Care Cont Vanc Given WBC increase and abd discomfort await C-diff - if neg will consider CT scan F/u labs and cults KISHOR FERRARI MD Jul 16, 2018 10:08
[2018-07-16 10:30] VITALS: BP 157/92
[2018-07-16] MEDS: VANCOMYCIN PER PHARMACY MC PRN (10:52)
--- NOTE | 2018-07-16 13:17 | NUR ---
SW following. Discussed with RN, no SW needs at this time. SW Will continue to follow.
[2018-07-16] MEDS: CLOTRIMAZOLE 10 MG TROCHE. MM SCH ×3 (14:27→22:35)
[2018-07-16 15:00] VITALS: BP 104/66
--- NOTE | 2018-07-16 15:55 | NUR ---
SW following. PT/OT recommending SNU. SW met with pt, pt is not sure if she wants to go to SNU or not. SW offered to call family, pt does not want SW to call family, stating she would make this decision herself. SW advised someone would meet with pt likely tomorrow to discuss SNU again after pt has had time to think about it. SW will continue to follow. RN notified.
[2018-07-16] MEDS: FOLIC/VIT B COMP W-C (RENAL) TABLET. PO SCH (17:43)
--- NOTE | 2018-07-16 18:10 | NUR ---
Pt's family at bedside, report that pt is requesting something for leg discomfort r/t restless leg syndrome. Pt has Requip, but due at 2100. Verified w/Dr. Cardoso order to allow administration of 1mg tablet now, and the remaining 2 mg of the night time dose at 2100.
[2018-07-16 19:00] VITALS: BP 148/82
[2018-07-16] MEDS: MIRTAZAPINE 15 MG TABLET PO SCH (22:35)
[2018-07-16] MEDS: LACTOBACILLUS RHAMNOSUS GG 1 CAPSULE. PO SCH (22:35)
[2018-07-16 22:52] VITALS: BP 148/82
[2018-07-16] MEDS: VANCOMYCIN 125 MG/2.5 ML ORAL SOLUTION. PO SCH (23:31)
[2018-07-17 03:00] VITALS: BP 166/88
[2018-07-17 03:53] LABS: BASO # 0.1 x10^3/uL (0.0-0.2); BASO % 0 % (0-3); EOS # 0.2 x10^3/uL (0.0-0.7); EOS % 1 % (0-3); HEMATOCRIT 22.5 % (36.0-47.0); HEMOGLOBIN 7.2 g/dL (12.0-15.5); LYMPH # 1.8 x10^3/uL (1.0-4.8); LYMPH % 11 % (24-48); MEAN CORPUSCULAR HEMOGLOBIN 26 pg (25-35); MEAN CORPUSCULAR HGB CONC 32 g/dL (31-37); MEAN CORPUSCULAR VOLUME 82 fL (79-100); MONO # 1.1 x10^3/uL (0.0-1.1); MONO % 7 % (0-9); NEUT # 12.9 x10^3uL (1.8-7.7); NEUT % 81 % (31-73); PLATELET COUNT 475 x10^3/uL (140-400); RED BLOOD COUNT 2.75 x10^6/uL (3.50-5.40); RED CELL DISTRIBUTION WIDTH 17.6 % (11.5-14.5)
[2018-07-17 04:18] LABS: ALBUMIN 1.3 g/dL (3.4-5.0); ALBUMIN/GLOBULIN RATIO 0.3 (1.0-1.7); CALCIUM 8.5 mg/dL (8.5-10.1); CREATININE 3.1 mg/dL (0.6-1.0); GFR 14.8; POTASSIUM 3.1 mmol/L (3.5-5.1); TOTAL BILIRUBIN 0.3 mg/dL (0.2-1.0); TOTAL PROTEIN 6.1 g/dL (6.4-8.2)
[2018-07-17] MEDS: CLOTRIMAZOLE 10 MG TROCHE. MM SCH ×6 (05:45→21:48)
[2018-07-17] MEDS: VANCOMYCIN 125 MG/2.5 ML ORAL SOLUTION. PO SCH ×3 (05:45→17:44)
[2018-07-17] MEDS: IPRATRPIUM/ALBUTEROL 0.5/2.5MG 3 ML NEBU. NEB SCH ×2 (06:20→19:45)
[2018-07-17 07:00] VITALS: BP 117/67
[2018-07-17] MEDS: MEGESTROL 20 MG TABLET. PO SCH ×2 (08:49→20:45)
[2018-07-17] MEDS: LACTOBACILLUS RHAMNOSUS GG 1 CAPSULE. PO SCH ×2 (08:49→20:45)
[2018-07-17] MEDS: VITAMIN B12,B9,B6 COMPLEX 1 TABLET. PO SCH (08:49)
[2018-07-17] MEDS: rOPINIRole 1 MG TABLET. PO SCH ×2 (08:49→20:45)
[2018-07-17] MEDS: SERTRALINE 50 MG TABLET. PO SCH (08:50)
--- NOTE | 2018-07-17 09:09 | NUR ---
IP: Pt is C.diff + requiring contact plus precautions using brown sign.
--- NOTE | 2018-07-17 10:50 | PDOC ---
Infectious Disease Note Subjective Subjective Some better. Occ loose stool No F/C/S/SOA/rash Occ Nausea no vomit Vital Sign Vital Signs Vital Signs Date Time Temp Pulse Resp B/P (MAP) Pulse Ox O2 Delivery O2 Flow Rate FiO2 07/17/18 08:00 Room Air 07/17/18 07:00 98.2 71 15 117/67 (84) 99 98.2 Physical Exam PHYSICAL EXAM CONSTITUTIONAL: She is cooperative. She is in no acute distress. She has a little bit of a tremor. she is in bed - looks better HEENT: Pupils are equal and reactive, with normal conjunctivae. Oral cavity, pharynx - mild thrush NECK: Supple. No JVD. LUNGS: Clear to auscultation. HEART: S1, S2. ABDOMEN: Soft, mild nontender. No guarding or rebound. EXTREMITIES: No clubbing, cyanosis or gross edema. SKIN: Warm to touch, without signs of rash. NEUROLOGIC: She is nonfocal, but is somewhat of a poor historian. She seems to have a little bit of a tremor. Right chest hemodialysis catheter, without signs of complications. Affect is pleasant. Labs Lab Laboratory Tests Test 07/16/18 11:05 07/17/18 02:40 Clostridium difficile Toxin B Gene Positive (Negative) White Blood Count 16.0 x10^3/uL (4.0-11.0) Red Blood Count 2.75 x10^6/uL (3.50-5.40) Hemoglobin 7.2 g/dL (12.0-15.5) Hematocrit 22.5 % (36.0-47.0) Mean Corpuscular Volume 82 fL (79-100) Mean Corpuscular Hemoglobin 26 pg (25-35) Mean Corpuscular Hemoglobin Concent 32 g/dL (31-37) Red Cell Distribution Width 17.6 % (11.5-14.5) Platelet Count 475 x10^3/uL (140-400) Neutrophils (%) (Auto) 81 % (31-73) Lymphocytes (%) (Auto) 11 % (24-48) Monocytes (%) (Auto) 7 % (0-9) Eosinophils (%) (Auto) 1 % (0-3) Basophils (%) (Auto) 0 % (0-3) Neutrophils # (Auto) 12.9 x10^3uL (1.8-7.7) Lymphocytes # (Auto) 1.8 x10^3/uL (1.0-4.8) Monocytes # (Auto) 1.1 x10^3/uL (0.0-1.1) Eosinophils # (Auto) 0.2 x10^3/uL (0.0-0.7) Basophils # (Auto) 0.1 x10^3/uL (0.0-0.2) Sodium Level 140 mmol/L (136-145) Potassium Level 3.1 mmol/L (3.5-5.1) Chloride Level 103 mmol/L (98-107) Carbon Dioxide Level 28 mmol/L (21-32) Anion Gap 9 (6-14) Blood Urea Nitrogen 19 mg/dL (7-20) Creatinine 3.1 mg/dL (0.6-1.0) Estimated GFR (Cockcroft-Gault) 14.8 BUN/Creatinine Ratio 6 (6-20) Glucose Level 93 mg/dL (70-99) Calcium Level 8.5 mg/dL (8.5-10.1) Total Bilirubin 0.3 mg/dL (0.2-1.0) Aspartate Amino Transf (AST/SGOT) 28 U/L (15-37) Alanine Aminotransferase (ALT/SGPT) 12 U/L (14-59) Alkaline Phosphatase 106 U/L (46-116) Total Protein 6.1 g/dL (6.4-8.2) Albumin 1.3 g/dL (3.4-5.0) Albumin/Globulin Ratio 0.3 (1.0-1.7) Micro Microbiology 07/14/18 Blood Culture - Final, Complete Objective Assessment GPC - bacteremia POA 07/14 3/4 bottles Thrush Anemia - S/p PRBCs Leukocytosis - better CKD on HD Severe Protein malnutrition Plan Plan of Care C-diff - 07/16 - po Vanc started Cont IV Vanc F/u labs and cults KISHOR FERRARI MD Jul 17, 2018 10:50
[2018-07-17 11:00] VITALS: BP 141/73
--- NOTE | 2018-07-17 12:20 | PDOC ---
PROGRESS NOTES Chief Complaint Chief Complaint Acute Anemia Leukocytosis - likely UTI Vascular dementia HTN Anxiety Depression End-stage renal disease on dialysis Saturday, Saturday, (new dx 2019) History of Present Illness History of Present Illness 72 yo f w/ PMHx CVA with vascular dementia, HTN, anxiety, depression, end-stage renal disease on dialysis Saturday, Saturday, (new dx 2019), last dialyzed on Saturday who p/w fever, decreased appetite, fever, decreased energy/ weakness, symptoms began 3 days ago. Found with Hb of 5.6 in ED, transfused PRBC to 7.5. She was noted with loose stools as well. She has history dementia but she is alert to person only, but is able to carry on a conversation and give some health history. She does not refuse dialysis every day. She was seen here this past January 2018 and May 2018 and sent home with home health ([facility]). She has a DPOA, Ivy the nephew has been texting who has been informed of hospital admission. 07/15: Seen on dialysis today. She has some chills with this. Notably, lab called about 3/4 bottles positive on blood culture for GPC in clusters. 07/16: Feeling terrible today. Has diarrhea x2 POSITIVE FOR C. DIFFICILE. She has bilateral LQ pain. Started on oral vancomycin and continued on IV Vancomycin Still with some loose stools. She has little appetite for fear of BM. Advised ok to eat. She does not want appetite stimulants. Denies SOB and CP. A/P: Gram-positive cocci bacteremia, present on admission on 07/14/2018 - consult ID , vanco C. Diff diarrhea - present on admission, now on oral vanco Anemia, status post packed red blood cells - will monitor Thrush - treat Leukocytosis - now with HR 99, she meets criteria for SIRS and with bacteremia this is SEPSIS, poa. Could possibly simply be reactive due to her anemia ESRD - on hemodialysis. Nephrology consulted Severe protein malnutrition - likely 2/2 her dementia and currently infectious process Cont inpatient Vitals Vitals Vital Signs Date Time Temp Pulse Resp B/P (MAP) Pulse Ox O2 Delivery O2 Flow Rate FiO2 07/17/18 11:00 98.2 67 16 141/73 (95) 98 Room Air 98.2 Physical Exam Physical Exam CONSTITUTIONAL: She is cooperative. She is in no acute distress. She has a little bit of a tremor. she is in bed - looks better HEENT: Pupils are equal and reactive, with normal conjunctivae. Oral cavity, pharynx - mild thrush NECK: Supple. No JVD. LUNGS: Clear to auscultation. HEART: S1, S2. ABDOMEN: Soft, mild nontender. No guarding or rebound. EXTREMITIES: No clubbing, cyanosis or gross edema. SKIN: Warm to touch, without signs of rash. NEUROLOGIC: She is nonfocal, but is somewhat of a poor historian. She seems to have a little bit of a tremor. Right chest hemodialysis catheter, without signs of complications. Affect is pleasant. General: Cooperative, No acute distress, Other (poorly oriented) Lungs: Clear Abdomen: Normal bowel sounds, Soft Extremities: No cyanosis, Normal pulses Skin: No rashes, No significant lesion Labs LABS Laboratory Tests Test 07/17/18 02:40 White Blood Count 16.0 x10^3/uL (4.0-11.0) Red Blood Count 2.75 x10^6/uL (3.50-5.40) Hemoglobin 7.2 g/dL (12.0-15.5) Hematocrit 22.5 % (36.0-47.0) Mean Corpuscular Volume 82 fL (79-100) Mean Corpuscular Hemoglobin 26 pg (25-35) Mean Corpuscular Hemoglobin Concent 32 g/dL (31-37) Red Cell Distribution Width 17.6 % (11.5-14.5) Platelet Count 475 x10^3/uL (140-400) Neutrophils (%) (Auto) 81 % (31-73) Lymphocytes (%) (Auto) 11 % (24-48) Monocytes (%) (Auto) 7 % (0-9) Eosinophils (%) (Auto) 1 % (0-3) Basophils (%) (Auto) 0 % (0-3) Neutrophils # (Auto) 12.9 x10^3uL (1.8-7.7) Lymphocytes # (Auto) 1.8 x10^3/uL (1.0-4.8) Monocytes # (Auto) 1.1 x10^3/uL (0.0-1.1) Eosinophils # (Auto) 0.2 x10^3/uL (0.0-0.7) Basophils # (Auto) 0.1 x10^3/uL (0.0-0.2) Sodium Level 140 mmol/L (136-145) Potassium Level 3.1 mmol/L (3.5-5.1) Chloride Level 103 mmol/L (98-107) Carbon Dioxide Level 28 mmol/L (21-32) Anion Gap 9 (6-14) Blood Urea Nitrogen 19 mg/dL (7-20) Creatinine 3.1 mg/dL (0.6-1.0) Estimated GFR (Cockcroft-Gault) 14.8 BUN/Creatinine Ratio 6 (6-20) Glucose Level 93 mg/dL (70-99) Calcium Level 8.5 mg/dL (8.5-10.1) Total Bilirubin 0.3 mg/dL (0.2-1.0) Aspartate Amino Transf (AST/SGOT) 28 U/L (15-37) Alanine Aminotransferase (ALT/SGPT) 12 U/L (14-59) Alkaline Phosphatase 106 U/L (46-116) Total Protein 6.1 g/dL (6.4-8.2) Albumin 1.3 g/dL (3.4-5.0) Albumin/Globulin Ratio 0.3 (1.0-1.7) Assessment and Plan Assessmemt and Plan Problems Medical Problems: (1) End stage renal disease Status: Acute (2) Generalized weakness Status: Acute Comment Review of Relevant I have reviewed the following items linda (where applicable) has been applied. Labs Laboratory Tests Test 07/16/18 02:35 07/16/18 11:05 07/17/18 02:40 White Blood Count 19.0 x10^3/uL (4.0-11.0) 16.0 x10^3/uL (4.0-11.0) Red Blood Count 2.96 x10^6/uL (3.50-5.40) 2.75 x10^6/uL (3.50-5.40) Hemoglobin 7.7 g/dL (12.0-15.5) 7.2 g/dL (12.0-15.5) Hematocrit 24.5 % (36.0-47.0) 22.5 % (36.0-47.0) Mean Corpuscular Volume 83 fL (79-100) 82 fL (79-100) Mean Corpuscular Hemoglobin 26 pg (25-35) 26 pg (25-35) Mean Corpuscular Hemoglobin Concent 32 g/dL (31-37) 32 g/dL (31-37) Red Cell Distribution Width 18.2 % (11.5-14.5) 17.6 % (11.5-14.5) Platelet Count 410 x10^3/uL (140-400) 475 x10^3/uL (140-400) Neutrophils (%) (Auto) 86 % (31-73) 81 % (31-73) Lymphocytes (%) (Auto) 8 % (24-48) 11 % (24-48) Monocytes (%) (Auto) 6 % (0-9) 7 % (0-9) Eosinophils (%) (Auto) 1 % (0-3) 1 % (0-3) Basophils (%) (Auto) 0 % (0-3) 0 % (0-3) Neutrophils # (Auto) 16.3 x10^3uL (1.8-7.7) 12.9 x10^3uL (1.8-7.7) Lymphocytes # (Auto) 1.4 x10^3/uL (1.0-4.8) 1.8 x10^3/uL (1.0-4.8) Monocytes # (Auto) 1.1 x10^3/uL (0.0-1.1) 1.1 x10^3/uL (0.0-1.1) Eosinophils # (Auto) 0.1 x10^3/uL (0.0-0.7) 0.2 x10^3/uL (0.0-0.7) Basophils # (Auto) 0.0 x10^3/uL (0.0-0.2) 0.1 x10^3/uL (0.0-0.2) Clostridium difficile Toxin B Gene Positive (Negative) Sodium Level 140 mmol/L (136-145) Potassium Level 3.1 mmol/L (3.5-5.1) Chloride Level 103 mmol/L (98-107) Carbon Dioxide Level 28 mmol/L (21-32) Anion Gap 9 (6-14) Blood Urea Nitrogen 19 mg/dL (7-20) Creatinine 3.1 mg/dL (0.6-1.0) Estimated GFR (Cockcroft-Gault) 14.8 BUN/Creatinine Ratio 6 (6-20) Glucose Level 93 mg/dL (70-99) Calcium Level 8.5 mg/dL (8.5-10.1) Total Bilirubin 0.3 mg/dL (0.2-1.0) Aspartate Amino Transf (AST/SGOT) 28 U/L (15-37) Alanine Aminotransferase (ALT/SGPT) 12 U/L (14-59) Alkaline Phosphatase 106 U/L (46-116) Total Protein 6.1 g/dL (6.4-8.2) Albumin 1.3 g/dL (3.4-5.0) Albumin/Globulin Ratio 0.3 (1.0-1.7) Laboratory Tests Test 07/17/18 02:40 White Blood Count 16.0 x10^3/uL (4.0-11.0) Red Blood Count 2.75 x10^6/uL (3.50-5.40) Hemoglobin 7.2 g/dL (12.0-15.5) Hematocrit 22.5 % (36.0-47.0) Mean Corpuscular Volume 82 fL (79-100) Mean Corpuscular Hemoglobin 26 pg (25-35) Mean Corpuscular Hemoglobin Concent 32 g/dL (31-37) Red Cell Distribution Width 17.6 % (11.5-14.5) Platelet Count 475 x10^3/uL (140-400) Neutrophils (%) (Auto) 81 % (31-73) Lymphocytes (%) (Auto) 11 % (24-48) Monocytes (%) (Auto) 7 % (0-9) Eosinophils (%) (Auto) 1 % (0-3) Basophils (%) (Auto) 0 % (0-3) Neutrophils # (Auto) 12.9 x10^3uL (1.8-7.7) Lymphocytes # (Auto) 1.8 x10^3/uL (1.0-4.8) Monocytes # (Auto) 1.1 x10^3/uL (0.0-1.1) Eosinophils # (Auto) 0.2 x10^3/uL (0.0-0.7) Basophils # (Auto) 0.1 x10^3/uL (0.0-0.2) Sodium Level 140 mmol/L (136-145) Potassium Level 3.1 mmol/L (3.5-5.1) Chloride Level 103 mmol/L (98-107) Carbon Dioxide Level 28 mmol/L (21-32) Anion Gap 9 (6-14) Blood Urea Nitrogen 19 mg/dL (7-20) Creatinine 3.1 mg/dL (0.6-1.0) Estimated GFR (Cockcroft-Gault) 14.8 BUN/Creatinine Ratio 6 (6-20) Glucose Level 93 mg/dL (70-99) Calcium Level 8.5 mg/dL (8.5-10.1) Total Bilirubin 0.3 mg/dL (0.2-1.0) Aspartate Amino Transf (AST/SGOT) 28 U/L (15-37) Alanine Aminotransferase (ALT/SGPT) 12 U/L (14-59) Alkaline Phosphatase 106 U/L (46-116) Total Protein 6.1 g/dL (6.4-8.2) Albumin 1.3 g/dL (3.4-5.0) Albumin/Globulin Ratio 0.3 (1.0-1.7) Microbiology 07/14/18 Blood Culture - Final, Complete 07/14/18 Urine Culture - Final, Complete 07/14/18 Urine Culture Result 1 (MARYANN) - Final, Complete Medications Current Medications Piperacillin Sod/ Tazobactam Sod 4.5 gm/Sodium Chloride 100 ml @ 200 mls/hr 1X ONCE IV Last administered on 07/14/18at 15:58; Start 07/14/18 at 15:00; Stop 07/14/18 at 15:29; Status DC Vancomycin HCl (Vanco Per Pharmacy) 1 each PRN DAILY PRN MC SEE COMMENTS Last administered on 07/16/18at 10:52; Start 07/14/18 at 14:45 Vancomycin HCl 1.25 gm/Sodium Chloride 250 ml @ 166.667 mls/hr 1X ONCE IV Last administered on 07/14/18at 18:10; Start 07/14/18 at 15:00; Stop 07/14/18 at 16:29; Status DC Ondansetron HCl (Zofran) 4 mg PRN Q8HRS PRN IV NAUSEA/VOMITING; Start 07/14/18 at 17:15; Stop 07/15/18 at 17:14; Status DC Morphine Sulfate (Morphine Sulfate) 2 mg PRN Q2HR PRN IV PAIN; Start 07/14/18 at 17:15; Stop 07/15/18 at 17:14; Status DC Acetaminophen (Tylenol) 650 mg PRN Q4HRS PRN PO FEVER; Start 07/14/18 at 17:15 ; Stop 07/15/18 at 17:14; Status DC Vancomycin HCl (Vancomycin Random Level) 1 each 1X ONCE MC ; Start 07/15/18 at 06:00; Stop 07/15/18 at 06:01; Status DC Vitamin B Complex/ Vitamin C (Dinorah-Ralph) 1 tab QPM PO Last administered on 07/16at 17:43; Start 07/15/18 at 18:00 Megestrol Acetate (Megace) 40 mg BID PO Last administered on 07/17/18at 08:49; Start 07/15/18 at 09:00 Mirtazapine (Remeron) 15 mg QHS PO Last administered on 07/16/18at 22:35; Start 07/14/18 at 22:00 Non-Formulary Medication (Mirtazapine ) 1 tab QHS PO ; Start 07/15/18 at 21:00; Status UNV Ropinirole HCl (Requip) 3 mg BID PO Last administered on 07/16/18at 18:21; Start 07/14/18 at 22:00; Stop 07/16/18 at 19:54; Status DC Sertraline HCl (Zoloft) 100 mg DAILY PO Last administered on 07/17/18at 08:50; Start 07/15/18 at 09:00 Phytonadione (Mephyton Oral Soln) 5 mg 1X ONCE PO Last administered on at 22:14; Start 07/14/18 at 22:00; Stop 07/14/18 at 22:01; Status DC Vitamin B Complex (Folbic Tablet) 1 tab DAILY PO Last administered on at 08:49; Start 07/15/18 at 09:00 Albuterol/ Ipratropium (Duoneb) 3 ml RTBID NEB Last administered on 07/17/18at 06:20; Start 07/15/18 at 08:00 Sodium Chloride 1,000 ml @ 1,000 mls/hr Q1H PRN IV hypotension; Start 07/15/18 at 10:48; Stop 07/15/18 at 16:47; Status DC Albumin Human 200 ml @ 200 mls/hr 1X PRN PRN IV Hypotension; Start 07/15/18 at 11:00; Stop 07/15/18 at 16:59; Status DC Sodium Chloride 1,000 ml @ 400 mls/hr Q2H30M PRN IV PATENCY; Start 07/15/18 at 10:48; Stop 07/15/18 at 22:47; Status DC Info (PHARMACY MONITORING -- do not chart) 1 each PRN DAILY PRN MC SEE COMMENTS ; Start 07/15/18 at 11:00; Status UNV Info (PHARMACY MONITORING -- do not chart) 1 each PRN DAILY PRN MC SEE COMMENTS ; Start 07/15/18 at 11:00 Vancomycin HCl 500 mg/Sodium Chloride 100 ml @ 100 mls/hr QTUTHSA IV ; Start at 16:00 Lactobacillus Rhamnosus (Culturelle) 1 cap BID PO Last administered on at 08:49; Start 07/16/18 at 21:00 Clotrimazole (Mycelex) 10 mg 5XDAY MM Last administered on 07/17/18at 10:38; Start 07/16/18 at 14:00 Ropinirole HCl (Requip) 3 mg DAILY PO Last administered on 07/17/18at 08:49; Start 07/17/18 at 09:00 Ropinirole HCl (Requip) 2 mg QHS PO Last administered on 07/16/18at 22:35; Start 07/16/18 at 21:00 Ropinirole HCl (Requip) 1 mg PRN QEVNG PRN PO RLS; Start 07/16/18 at 20:00 Vancomycin HCl (Vancomycin Oral Solution) 125 mg Q6HRS PO Last administered on 07/17/18at 05:45; Start 07/17/18 at 00:00 Active Scripts Active Reported Dialyvite Tablet (Folic Acid/Vitamin B Comp W-C) 1 Each Tablet 1 Each PO QPM QPM @ 1900 [hectorol] QTUTHSA [epogen] QTUTHSA Mirtazapine 15 Mg Tablet 1 Tab PO QHS Zoloft (Sertraline Hcl) 100 Mg Tablet 1 Tab PO DAILY Requip (Ropinirole Hcl) 1 Mg Tablet 3 Mg PO BID Mirtazapine 15 Mg Tablet 1 Tab PO QHS Megestrol Acetate 40 Mg Tablet 40 Mg PO BID Vitals/I & O Vital Sign - Last 24 Hours 07/16/18 07/16/18 07/16/18 07/16/18 15:00 19:00 20:00 21:08 Temp 97.9 97.8 97.9 97.8 Pulse 97 90 Resp 18 18 B/P (MAP) 104/66 (79) 148/82 (104) Pulse Ox 94 96 99 O2 Delivery Room Air Room Air Room Air Room Air 07/16/18 07/17/18 07/17/18 07/17/18 22:52 03:00 06:21 07:00 Temp 97.8 99.0 98.2 97.8 99.0 98.2 Pulse 87 89 71 Resp 17 15 B/P (MAP) 148/82 (104) 166/88 (114) 117/67 (84) Pulse Ox 96 96 98 99 O2 Delivery Room Air Room Air Room Air Room Air 07/17/18 07/17/18 08:00 11:00 Temp 98.2 98.2 Pulse 67 Resp 16 B/P (MAP) 141/73 (95) Pulse Ox 98 O2 Delivery Room Air Room Air Intake and Output 07/16/18 07/16/18 07/17/18 14:59 22:59 06:59 Intake Total 120 ml Output Total 0 ml Balance 120 ml 0 ml Nutrition Consultation Dietary Evaluation: Recommendations by RD: Add supplement feedings Comments: added nepro bid Expected Outcomes/Goals: po intake to improve to 50% of meals Interpretation of weight loss: >1-2% in 1 week Malnutrition Findings: Food and Nutrition Intake (Sev: <50% est energy req 5days Body Fat Depletion (Non Severe: Mod to Severe Weight Status: Underweight SOFIYA MCCORMACK MD Jul 17, 2018 12:20
--- NOTE | 2018-07-17 13:16 | PDOC ---
SUBJECTIVE ROS Seen on HD, No new concerns OBJECTIVE Vital Signs Vital Signs Date Time Temp Pulse Resp B/P (MAP) Pulse Ox O2 Delivery O2 Flow Rate FiO2 07/17/18 11:00 98.2 67 16 141/73 (95) 98 Room Air 98.2 I & 0 Intake and Output 07/17/18 07:00 Intake Total 120 ml Output Total 0 ml Balance 120 ml Intake Oral 120 ml Output Urine Total 0 ml # Bowel Movements 1 PHYSICAL EXAM Physical Exam GEN- no acute distress HEENT: OM moist NECK: Supple. LUNGS: Clear to auscultation. HEART: S1, S2. ABDOMEN: Soft, nontender EXTREMITIES: No clubbing, cyanosis or gross edema. 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 Hypokalemia - HD today Adjust the K in Dialysate Anemia- Hgb<7 on admission - s/p PRBC Aranesp , stable Gram-positive cocci bacteremia- ID following , On IV Vanc C-diff - 07/16 - po Vanc started Severe Protein Malnutrition COMMENT/RELEVANT DATA Meds Current Medications Medications (Trade) Dose Ordered Sig/Jaswinder Start Time Stop Time Status Last Admin Dose Admin Acetaminophen (Tylenol) 650 mg PRN Q4HRS PRN 07/14/18 17:15 07/15/18 17:14 DC Albumin Human 200 ml @ 200 mls/hr 1X PRN PRN 07/15/18 11:00 07/15/18 16:59 DC Albuterol/ Ipratropium (Duoneb) 3 ml RTBID 07/15/18 08:00 07/17/18 06:20 3 ML Clotrimazole (Mycelex) 10 mg 5XDAY 07/16/18 14:00 07/17/18 12:37 10 MG Info (PHARMACY MONITORING -- do not chart) 1 each PRN DAILY PRN 07/15/18 11:00 Lactobacillus Rhamnosus (Culturelle) 1 cap BID 07/16/18 21:00 07/17/18 08:49 1 CAP Megestrol Acetate (Megace) 40 mg BID 07/15/18 09:00 07/17/18 08:49 40 MG Mirtazapine (Remeron) 15 mg QHS 07/14/18 22:00 07/16/18 22:35 15 MG Morphine Sulfate (Morphine Sulfate) 2 mg PRN Q2HR PRN 07/14/18 17:15 07/15/18 17:14 DC Non-Formulary Medication (Mirtazapine ) 1 tab QHS 07/15/18 21:00 UNV Ondansetron HCl (Zofran) 4 mg PRN Q8HRS PRN 07/14/18 17:15 07/15/18 17:14 DC Phytonadione (Mephyton Oral Soln) 5 mg 1X ONCE 07/14/18 22:00 07/14/18 22:01 DC 07/14/18 22:14 5 MG Piperacillin Sod/ Tazobactam Sod 4.5 gm/Sodium Chloride 100 ml @ 200 mls/hr 1X ONCE 07/14/18 15:00 07/14/18 15:29 DC 07/14/18 15:58 200 MLS/HR Ropinirole HCl (Requip) 1 mg PRN QEVNG PRN 07/16/18 20:00 Sertraline HCl (Zoloft) 100 mg DAILY 07/15/18 09:00 07/17/18 08:50 100 MG Sodium Chloride 1,000 ml @ 400 mls/hr Q2H30M PRN 07/15/18 10:48 07/15/18 22:47 DC Vancomycin HCl (Vanco Per Pharmacy) 1 each PRN DAILY PRN 07/14/18 14:45 07/16/18 10:52 1 EACH Vancomycin HCl (Vancomycin Random Level) 1 each 1X ONCE 07/15/18 06:00 07/15/18 06:01 DC Vancomycin HCl (Vancomycin Oral Solution) 125 mg Q6HRS 07/17/18 00:00 07/17/18 12:36 125 MG Vancomycin HCl 1.25 gm/Sodium Chloride 250 ml @ 166.667 mls/hr 1X ONCE 07/14/18 15:00 07/14/18 16:29 DC 07/14/18 18:10 166.667 MLS/HR Vancomycin HCl 500 mg/Sodium Chloride 100 ml @ 100 mls/hr QTUTHSA 07/17/18 16:00 Vitamin B Complex (Folbic Tablet) 1 tab DAILY 07/15/18 09:00 07/17/18 08:49 1 TAB Vitamin B Complex/ Vitamin C (Dinorah-Ralph) 1 tab QPM 07/15/18 18:00 07/16/18 17:43 1 TAB Lab Laboratory Tests Test 07/17/18 02:40 White Blood Count 16.0 x10^3/uL (4.0-11.0) Red Blood Count 2.75 x10^6/uL (3.50-5.40) Hemoglobin 7.2 g/dL (12.0-15.5) Hematocrit 22.5 % (36.0-47.0) Mean Corpuscular Volume 82 fL (79-100) Mean Corpuscular Hemoglobin 26 pg (25-35) Mean Corpuscular Hemoglobin Concent 32 g/dL (31-37) Red Cell Distribution Width 17.6 % (11.5-14.5) Platelet Count 475 x10^3/uL (140-400) Neutrophils (%) (Auto) 81 % (31-73) Lymphocytes (%) (Auto) 11 % (24-48) Monocytes (%) (Auto) 7 % (0-9) Eosinophils (%) (Auto) 1 % (0-3) Basophils (%) (Auto) 0 % (0-3) Neutrophils # (Auto) 12.9 x10^3uL (1.8-7.7) Lymphocytes # (Auto) 1.8 x10^3/uL (1.0-4.8) Monocytes # (Auto) 1.1 x10^3/uL (0.0-1.1) Eosinophils # (Auto) 0.2 x10^3/uL (0.0-0.7) Basophils # (Auto) 0.1 x10^3/uL (0.0-0.2) Sodium Level 140 mmol/L (136-145) Potassium Level 3.1 mmol/L (3.5-5.1) Chloride Level 103 mmol/L (98-107) Carbon Dioxide Level 28 mmol/L (21-32) Anion Gap 9 (6-14) Blood Urea Nitrogen 19 mg/dL (7-20) Creatinine 3.1 mg/dL (0.6-1.0) Estimated GFR (Cockcroft-Gault) 14.8 BUN/Creatinine Ratio 6 (6-20) Glucose Level 93 mg/dL (70-99) Calcium Level 8.5 mg/dL (8.5-10.1) Total Bilirubin 0.3 mg/dL (0.2-1.0) Aspartate Amino Transf (AST/SGOT) 28 U/L (15-37) Alanine Aminotransferase (ALT/SGPT) 12 U/L (14-59) Alkaline Phosphatase 106 U/L (46-116) Total Protein 6.1 g/dL (6.4-8.2) Albumin 1.3 g/dL (3.4-5.0) Albumin/Globulin Ratio 0.3 (1.0-1.7) Results All relevant outside records, renal labs, imaging studies, telemetry/EKG's were reviewed. ANNA ZHANG MD Jul 17, 2018 13:16
[2018-07-17] MEDS: VANCOMYCIN PER PHARMACY MC PRN (14:21)
[2018-07-17] MEDS ORDERED: IV NORMAL SALINE 1000ML BAG 1,000 ML IV PRN ×2 (14:55)
[2018-07-17] MEDS ORDERED: DIALYSIS PATIENT. MC PRN ×2 (15:00)
[2018-07-17] MEDS ORDERED: VANCOMYCIN 500 MG in IV NORMAL SALINE 100ML 100 ML IV SCH (16:00)
--- NOTE | 2018-07-17 16:10 | NUR ---
SW following pt. Spoke with pt at bedside regarding SNU. Pt still undecided about SNU but now agreeable for SW to speak to her family regarding choices. Will continue to follow.
[2018-07-17] MEDS: rOPINIRole 1 MG TABLET. PO PRN (16:44)
[2018-07-17] MEDS: FOLIC/VIT B COMP W-C (RENAL) TABLET. PO SCH (17:45)
[2018-07-17 19:00] VITALS: BP 130/57
[2018-07-17] MEDS: MIRTAZAPINE 15 MG TABLET PO SCH (20:45)
--- NOTE | 2018-07-17 20:47 | NUR ---
Patient refuses to take night time meds. She states that she "just can't do it tonight". Patient was asked if she would at least try to take a couple and she stated no she would not. Patient did state that she would take her antibiotic (vanc) tonight and in the morning, but would not take any other medications.
[2018-07-17 23:00] VITALS: BP 146/75
[2018-07-18] MEDS: VANCOMYCIN 125 MG/2.5 ML ORAL SOLUTION. PO SCH ×5 (00:19→23:54)
[2018-07-18 03:00] VITALS: BP 146/80
[2018-07-18] MEDS: CLOTRIMAZOLE 10 MG TROCHE. MM SCH ×5 (05:50→23:54)
[2018-07-18] MEDS: IPRATRPIUM/ALBUTEROL 0.5/2.5MG 3 ML NEBU. NEB SCH ×2 (06:50→20:31)
[2018-07-18 07:00] VITALS: BP 144/71
--- NOTE | 2018-07-18 08:18 | NUR ---
DANIELE following pt. Spoke with pt's nephew Francisco, phone: [phone] via phone regarding SNU options. He reported pt only stayed two days at [facility] last month and went home. Pt's nephew agreeable with [facility]. DANIELE phoned and faxed referral to both facilities. Pt acceptance and admission pending. Will continue to follow. Addendum: 07/18/18 at 0828 by BENITA SANABRIA DANIELE faxed referral to [facility] as well as family is interested in facility. DANIELE has informed family [facility] might decline if they are not able to transport pt to [facility]. Pt's nephew verbalized understanding.
--- NOTE | 2018-07-18 10:08 | PDOC ---
Infectious Disease Note Subjective Subjective Some better. Occ loose stool No F/C/S/SOA/rash Occ Nausea no vomit Vital Sign Vital Signs Vital Signs Date Time Temp Pulse Resp B/P (MAP) Pulse Ox O2 Delivery O2 Flow Rate FiO2 07/18/18 07:00 97.9 88 16 144/71 (95) 97 Room Air 97.9 Physical Exam PHYSICAL EXAM CONSTITUTIONAL: She is cooperative. She is in no acute distress. She has a little bit of a tremor. she is in bed - looks better HEENT: Pupils are equal and reactive, with normal conjunctivae. Oral cavity, pharynx - mild thrush - better NECK: Supple. No JVD. LUNGS: Clear to auscultation. HEART: S1, S2. ABDOMEN: Soft, mild nontender. No guarding or rebound. EXTREMITIES: No clubbing, cyanosis or gross edema. SKIN: Warm to touch, without signs of rash. NEUROLOGIC: She is nonfocal, but is somewhat of a poor historian. She seems to have a little bit of a tremor. Right chest hemodialysis catheter, without signs of complications. Affect is pleasant. Labs Micro Microbiology 07/14/18 Blood Culture - Final, Complete Objective Assessment Staph aureus - bacteremia POA 07/14 3/4 bottles > MRSA vs MSSA - cont Vanc for now given improvement Thrush Anemia - S/p PRBCs Leukocytosis - better CKD on HD Severe Protein malnutrition Plan Plan of Care C-diff - 07/16 - po Vanc started Cont IV Vanc until species known Will need HD cath removed Repeat Blood cults ECHO F/u labs and cults KISHOR FERRARI MD Jul 18, 2018 10:08
[2018-07-18] MEDS: LACTOBACILLUS RHAMNOSUS GG 1 CAPSULE. PO SCH ×2 (10:20→21:22)
[2018-07-18] MEDS: VITAMIN B12,B9,B6 COMPLEX 1 TABLET. PO SCH ×2 (10:20→18:27)
[2018-07-18] MEDS: MEGESTROL 20 MG TABLET. PO SCH ×2 (10:21→21:22)
[2018-07-18] MEDS: SERTRALINE 50 MG TABLET. PO SCH (10:21)
[2018-07-18] MEDS: rOPINIRole 1 MG TABLET. PO SCH ×2 (10:21→21:22)
[2018-07-18 10:59] VITALS: BP 119/69
[2018-07-18] MEDS ORDERED: IV NORMAL SALINE 1000ML BAG 1,000 ML IV PRN ×2 (11:30)
[2018-07-18] MEDS ORDERED: DIALYSIS PATIENT. MC PRN ×2 (12:30)
--- NOTE | 2018-07-18 12:31 | NUR ---
SW following up with pt dc plan. Pt has been accepted at [facility], [facility] and [facility]. All three facilities agreed to transport pt to [facility] in [place], [place]. SW will speak with pt and family to determine choice of facility. Pt's RN has been notified.
--- NOTE | 2018-07-18 14:53 | PDOC ---
SUBJECTIVE ROS Dialysis today as plan to remove TDC Seen on HD, No new concerns OBJECTIVE Vital Signs Vital Signs Date Time Temp Pulse Resp B/P (MAP) Pulse Ox O2 Delivery O2 Flow Rate FiO2 07/18/18 10:59 97.8 94 18 119/69 (86) 96 Room Air 97.8 I & 0 Intake and Output 07/18/18 06:59 Intake Total 0 ml Output Total 0 ml Balance 0 ml Intake Oral 0 ml Output Urine Total 0 ml PHYSICAL EXAM Physical Exam GEN- no acute distress HEENT: OM moist NECK: Supple. LUNGS: Clear to auscultation. HEART: S1, S2. ABDOMEN: Soft, nontender EXTREMITIES: No clubbing, cyanosis or gross edema. 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 Anemia- Hgb<7 on admission - s/p PRBC Aranesp , stable Staph aureus - bacteremia 07/14 3/4 bottles > MRSA vs MSSA On IV Vanc Remove TDC after HD today , C-diff - 07/16 - po Vanc started Severe Protein Malnutrition COMMENT/RELEVANT DATA Meds Current Medications Medications (Trade) Dose Ordered Sig/Jaswinder Start Time Stop Time Status Last Admin Dose Admin Acetaminophen (Tylenol) 650 mg PRN Q4HRS PRN 07/14/18 17:15 07/15/18 17:14 DC Albumin Human 200 ml @ 200 mls/hr 1X PRN PRN 07/15/18 11:00 07/15/18 16:59 DC Albuterol/ Ipratropium (Duoneb) 3 ml RTBID 07/15/18 08:00 07/18/18 06:50 3 ML Clotrimazole (Mycelex) 10 mg 5XDAY 07/16/18 14:00 07/18/18 10:22 10 MG Info (PHARMACY MONITORING -- do not chart) 1 each PRN DAILY PRN 07/18/18 12:30 UNV Lactobacillus Rhamnosus (Culturelle) 1 cap BID 07/16/18 21:00 07/18/18 10:20 1 CAP Megestrol Acetate (Megace) 40 mg BID 07/15/18 09:00 07/18/18 10:21 40 MG Mirtazapine (Remeron) 15 mg QHS 07/14/18 22:00 07/16/18 22:35 15 MG Morphine Sulfate (Morphine Sulfate) 2 mg PRN Q2HR PRN 07/14/18 17:15 07/15/18 17:14 DC Non-Formulary Medication (Mirtazapine ) 1 tab QHS 07/15/18 21:00 UNV Ondansetron HCl (Zofran) 4 mg PRN Q8HRS PRN 07/14/18 17:15 07/15/18 17:14 DC Phytonadione (Mephyton Oral Soln) 5 mg 1X ONCE 07/14/18 22:00 07/14/18 22:01 DC 07/14/18 22:14 5 MG Piperacillin Sod/ Tazobactam Sod 4.5 gm/Sodium Chloride 100 ml @ 200 mls/hr 1X ONCE 07/14/18 15:00 07/14/18 15:29 DC 07/14/18 15:58 200 MLS/HR Ropinirole HCl (Requip) 1 mg PRN QEVNG PRN 07/16/18 20:00 07/17/18 16:44 1 MG Sertraline HCl (Zoloft) 100 mg DAILY 07/15/18 09:00 07/18/18 10:21 100 MG Sodium Chloride 1,000 ml @ 400 mls/hr Q2H30M PRN 07/18/18 11:30 07/18/18 23:29 Vancomycin HCl (Vanco Per Pharmacy) 1 each PRN DAILY PRN 07/14/18 14:45 07/17/18 14:21 1 EACH Vancomycin HCl (Vancomycin Random Level) 1 each 1X ONCE 07/15/18 06:00 07/15/18 06:01 DC Vancomycin HCl (Vancomycin Oral Solution) 125 mg Q6HRS 07/17/18 00:00 07/18/18 00:19 125 MG Vancomycin HCl 1.25 gm/Sodium Chloride 250 ml @ 166.667 mls/hr 1X ONCE 07/14/18 15:00 07/14/18 16:29 DC 07/14/18 18:10 166.667 MLS/HR Vancomycin HCl 500 mg/Sodium Chloride 100 ml @ 100 mls/hr QTUTHSA 07/17/18 16:00 07/17/18 16:44 100 MLS/HR Vitamin B Complex (Folbic Tablet) 1 tab DAILY 07/15/18 09:00 07/18/18 10:20 1 TAB Vitamin B Complex/ Vitamin C (Dinorah-Ralph) 1 tab QPM 07/15/18 18:00 07/17/18 17:45 1 TAB Results All relevant outside records, renal labs, imaging studies, telemetry/EKG's were reviewed. ANNA ZHANG MD Jul 18, 2018 14:53
[2018-07-18 15:00] VITALS: BP 125/68
--- NOTE | 2018-07-18 15:18 | RAD ---
Tunneled hemodialysis catheter removal at the bedside, no imaging. Technique and findings: Following informed consent, the patient was prepped and draped in usual sterile fashion. 1% lidocaine was used to achieve local anesthesia around the exit site of the existing catheter. Blunt dissection techniques were used to free the cuff and the catheter was removed and hemostasis was achieved with manual compression. Dressing was applied after the tract was irrigated with sterile saline. Impression: 1. Nonimage guided right IJ tunneled hemodialysis catheter removal as described.
[2018-07-18] MEDS: VANCOMYCIN PER PHARMACY MC PRN (15:52)
--- NOTE | 2018-07-18 15:52 | NUR ---
Pharmacy Vancomycin Dosing Note S: Consulted to monitor and dose vancomycin started 07/14/18. O: TYLER GUTIERREZ is a 72 year old F with MRSA bacteremia. Other Antibiotics: ZOSYN X1 07/14 LABS: Last BUN: 19 Last Creatinine: 3.1 Creatinine Clearance: ESRD HD TTS Last WBC: 16 Last Platelets: Tmax (past 24 hours): 99.0 Microbiology: BLOOD CX: MRSA I/O: 300/not documented Drug Levels: Last Random level: 26 on 07/15/18 at 0230 Last dose given 07/17/18 at 1810 Vancomycin Dosing: Dosing Weight: Actual Target Trough: 15-20 A: Patient has been receiving vancomycin 500 mg qTues/Thurs/Sat after HD sessions. Her HD line needs to be removed due to MRSA bacteremia, therefore she will dialyze today. Will give a one time dose of vancomycin today after HD session and cancel scheduled vancomycin doses until further HD plan is known. P: 1. Give Vancomycin 500 mg IV x 1 dose after HD today, then D/C schedule doses 2. Follow up for HD plan to reschedule doses 3. Follow up random level next week if therapy persists 4. Pharmacy will continue to monitor, follow and adjust therapy as needed. SOCO ELY [facility], 07/18/18 [id number]
[2018-07-18] MEDS: rOPINIRole 1 MG TABLET. PO PRN (15:53)
[2018-07-18] MEDS ORDERED: VANCOMYCIN 500 MG in IV NORMAL SALINE 100ML 100 ML IV ONE (16:00)
[2018-07-18] MEDS: FOLIC/VIT B COMP W-C (RENAL) TABLET. PO SCH (18:27)
[2018-07-18 19:00] VITALS: BP 110/70
[2018-07-18] MEDS: MIRTAZAPINE 15 MG TABLET PO SCH (21:22)
--- NOTE | 2018-07-18 22:26 | PDOC ---
PROGRESS NOTES Chief Complaint Chief Complaint Acute Anemia Leukocytosis - likely UTI Vascular dementia HTN Anxiety Depression End-stage renal disease on dialysis Saturday, Saturday, (new dx 2019) History of Present Illness History of Present Illness 72 yo f w/ PMHx CVA with vascular dementia, HTN, anxiety, depression, end-stage renal disease on dialysis Saturday, Saturday, (new dx 2019), last dialyzed on Saturday who p/w fever, decreased appetite, fever, decreased energy/ weakness, symptoms began 3 days ago. Found with Hb of 5.6 in ED, transfused PRBC to 7.5. She was noted with loose stools as well. She has history dementia but she is alert to person only, but is able to carry on a conversation and give some health history. She does not refuse dialysis every day. She was seen here this past January 2018 and May 2018 and sent home with home health ([place]). She has a DPOA, Ivy the nephew has been texting who has been informed of hospital admission. 07/15: Seen on dialysis today. She has some chills with this. Notably, lab called about 3/4 bottles positive on blood culture for GPC in clusters. 07/16: Feeling terrible today. Has diarrhea x2 POSITIVE FOR C. DIFFICILE. She has bilateral LQ pain. Started on oral vancomycin and continued on IV Vancomycin 07/17: Feeling somewhat better. Still with some loose stools. She has little appetite for fear of BM. Advised ok to eat. She does not want appetite stimulants. Denies SOB and CP. A/P: Gram-positive cocci bacteremia, present on admission on 07/14/2018 - consulted ID, owen C. Diff diarrhea - present on admission, now on oral vanco Anemia, status post packed red blood cells - will monitor Thrush - treat Leukocytosis - now with HR 99, she meets criteria for SIRS and with bacteremia this is SEPSIS, poa. Could possibly simply be reactive due to her anemia ESRD - on hemodialysis. Nephrology consulted Severe protein malnutrition - likely 2/2 her dementia and currently infectious process Cont inpatient Vitals Vitals Vital Signs Date Time Temp Pulse Resp B/P (MAP) Pulse Ox O2 Delivery O2 Flow Rate FiO2 07/18/18 20:30 99 Room Air 07/18/18 19:00 99.1 92 18 110/70 (83) 99.1 Physical Exam Physical Exam CONSTITUTIONAL: She is cooperative. She is in no acute distress. She has a little bit of a tremor. she is in bed - looks better HEENT: Pupils are equal and reactive, with normal conjunctivae. Oral cavity, pharynx - mild thrush - better NECK: Supple. No JVD. LUNGS: Clear to auscultation. HEART: S1, S2. ABDOMEN: Soft, mild nontender. No guarding or rebound. EXTREMITIES: No clubbing, cyanosis or gross edema. SKIN: Warm to touch, without signs of rash. NEUROLOGIC: She is nonfocal, but is somewhat of a poor historian. She seems to have a little bit of a tremor. Right chest hemodialysis catheter, without signs of complications. Affect is pleasant. General: Cooperative, No acute distress, Other (poorly oriented) Lungs: Clear Abdomen: Normal bowel sounds, Soft Extremities: No cyanosis, Normal pulses Skin: No rashes, No significant lesion Labs LABS Laboratory Tests Test 07/18/18 13:30 Hepatitis B Surface Antigen Nonreactive (Nonreactive) Hepatitis B Surface Antibody Nonreactive Assessment and Plan Assessmemt and Plan Problems Medical Problems: (1) End stage renal disease Status: Acute (2) Generalized weakness Status: Acute Comment Review of Relevant I have reviewed the following items linda (where applicable) has been applied. Labs Laboratory Tests Test 07/17/18 02:40 07/18/18 13:30 White Blood Count 16.0 x10^3/uL (4.0-11.0) Red Blood Count 2.75 x10^6/uL (3.50-5.40) Hemoglobin 7.2 g/dL (12.0-15.5) Hematocrit 22.5 % (36.0-47.0) Mean Corpuscular Volume 82 fL (79-100) Mean Corpuscular Hemoglobin 26 pg (25-35) Mean Corpuscular Hemoglobin Concent 32 g/dL (31-37) Red Cell Distribution Width 17.6 % (11.5-14.5) Platelet Count 475 x10^3/uL (140-400) Neutrophils (%) (Auto) 81 % (31-73) Lymphocytes (%) (Auto) 11 % (24-48) Monocytes (%) (Auto) 7 % (0-9) Eosinophils (%) (Auto) 1 % (0-3) Basophils (%) (Auto) 0 % (0-3) Neutrophils # (Auto) 12.9 x10^3uL (1.8-7.7) Lymphocytes # (Auto) 1.8 x10^3/uL (1.0-4.8) Monocytes # (Auto) 1.1 x10^3/uL (0.0-1.1) Eosinophils # (Auto) 0.2 x10^3/uL (0.0-0.7) Basophils # (Auto) 0.1 x10^3/uL (0.0-0.2) Sodium Level 140 mmol/L (136-145) Potassium Level 3.1 mmol/L (3.5-5.1) Chloride Level 103 mmol/L (98-107) Carbon Dioxide Level 28 mmol/L (21-32) Anion Gap 9 (6-14) Blood Urea Nitrogen 19 mg/dL (7-20) Creatinine 3.1 mg/dL (0.6-1.0) Estimated GFR (Cockcroft-Gault) 14.8 BUN/Creatinine Ratio 6 (6-20) Glucose Level 93 mg/dL (70-99) Calcium Level 8.5 mg/dL (8.5-10.1) Total Bilirubin 0.3 mg/dL (0.2-1.0) Aspartate Amino Transf (AST/SGOT) 28 U/L (15-37) Alanine Aminotransferase (ALT/SGPT) 12 U/L (14-59) Alkaline Phosphatase 106 U/L (46-116) Total Protein 6.1 g/dL (6.4-8.2) Albumin 1.3 g/dL (3.4-5.0) Albumin/Globulin Ratio 0.3 (1.0-1.7) Hepatitis B Surface Antigen Nonreactive (Nonreactive) Hepatitis B Surface Antibody Nonreactive Laboratory Tests Test 07/18/18 13:30 Hepatitis B Surface Antigen Nonreactive (Nonreactive) Hepatitis B Surface Antibody Nonreactive Microbiology 07/14/18 Blood Culture - Preliminary, Resulted 07/14/18 Blood Culture Result 1 (MARYANN) - Preliminary, Resulted 07/14/18 Urine Culture - Final, Complete 07/14/18 Urine Culture Result 1 (MARYANN) - Final, Complete Medications Current Medications Piperacillin Sod/ Tazobactam Sod 4.5 gm/Sodium Chloride 100 ml @ 200 mls/hr 1X ONCE IV Last administered on 07/14/18 15:58; Start 07/14/18 at 15:00; Stop 07/14/18 at 15:29; Status DC Vancomycin HCl (Vanco Per Pharmacy) 1 each PRN DAILY PRN MC SEE COMMENTS Last administered on 07/18/18 15:52; Start 07/14/18 at 14:45 Vancomycin HCl 1.25 gm/Sodium Chloride 250 ml @ 166.667 mls/hr 1X ONCE IV Last administered on 07/14/18 18:10; Start 07/14/18 at 15:00; Stop 07/14/18 at 16:29; Status DC Ondansetron HCl (Zofran) 4 mg PRN Q8HRS PRN IV NAUSEA/VOMITING; Start 07/14/18 at 17:15; Stop 07/15/18 at 17:14; Status DC Morphine Sulfate (Morphine Sulfate) 2 mg PRN Q2HR PRN IV PAIN; Start 07/14/18 at 17:15; Stop 07/15/18 at 17:14; Status DC Acetaminophen (Tylenol) 650 mg PRN Q4HRS PRN PO FEVER; Start 07/14/18 at 17:15 ; Stop 07/15/18 at 17:14; Status DC Vancomycin HCl (Vancomycin Random Level) 1 each 1X ONCE MC ; Start 07/15/18 at 06:00; Stop 07/15/18 at 06:01; Status DC Vitamin B Complex/ Vitamin C (Dinorah-Ralph) 1 tab QPM PO Last administered on 07/18at 18:27; Start 07/15/18 at 18:00 Megestrol Acetate (Megace) 40 mg BID PO Last administered on 07/18/18 21:22; Start 07/15/18 at 09:00 Mirtazapine (Remeron) 15 mg QHS PO Last administered on 07/18/18 21:22; Start 07/14/18 at 22:00 Non-Formulary Medication (Mirtazapine ) 1 tab QHS PO ; Start 07/15/18 at 21:00; Status UNV Ropinirole HCl (Requip) 3 mg BID PO Last administered on 07/16/18at 18:21; Start 07/14/18 at 22:00; Stop 07/16/18 at 19:54; Status DC Sertraline HCl (Zoloft) 100 mg DAILY PO Last administered on 07/18/18at 10:21; Start 07/15/18 at 09:00 Phytonadione (Mephyton Oral Soln) 5 mg 1X ONCE PO Last administered on 22:14; Start 07/14/18 at 22:00; Stop 07/14/18 at 22:01; Status DC Vitamin B Complex (Folbic Tablet) 1 tab DAILY PO Last administered on at 18:27; Start 07/15/18 at 09:00 Albuterol/ Ipratropium (Duoneb) 3 ml RTBID NEB Last administered on 07/18/18at 20:31; Start 07/15/18 at 08:00 Sodium Chloride 1,000 ml @ 1,000 mls/hr Q1H PRN IV hypotension; Start 07/15/18 at 10:48; Stop 07/15/18 at 16:47; Status DC Albumin Human 200 ml @ 200 mls/hr 1X PRN PRN IV Hypotension; Start 07/15/18 at 11:00; Stop 07/15/18 at 16:59; Status DC Sodium Chloride 1,000 ml @ 400 mls/hr Q2H30M PRN IV PATENCY; Start 07/15/18 at 10:48; Stop 07/15/18 at 22:47; Status DC Info (PHARMACY MONITORING -- do not chart) 1 each PRN DAILY PRN MC SEE COMMENTS ; Start 07/15/18 at 11:00; Status UNV Info (PHARMACY MONITORING -- do not chart) 1 each PRN DAILY PRN MC SEE COMMENTS ; Start 07/15/18 at 11:00 Vancomycin HCl 500 mg/Sodium Chloride 100 ml @ 100 mls/hr QTUTHSA IV Last administered on 07/17/18at 16:44; Start 07/17/18 at 16:00; Stop 07/18/18 at 15:41 ; Status DC Lactobacillus Rhamnosus (Culturelle) 1 cap BID PO Last administered on at 21:22; Start 07/16/18 at 21:00 Clotrimazole (Mycelex) 10 mg 5XDAY MM Last administered on 07/18/18at 18:27; Start 07/16/18 at 14:00 Ropinirole HCl (Requip) 3 mg DAILY PO Last administered on 07/18/18at 10:21; Start 07/17/18 at 09:00 Ropinirole HCl (Requip) 2 mg QHS PO Last administered on 07/18/18at 21:22; Start 07/16/18 at 21:00 Ropinirole HCl (Requip) 1 mg PRN QEVNG PRN PO RLS Last administered on at 15:53; Start 07/16/18 at 20:00 Vancomycin HCl (Vancomycin Oral Solution) 125 mg Q6HRS PO Last administered on 07/18/18at 18:27; Start 07/17/18 at 00:00 Sodium Chloride 1,000 ml @ 1,000 mls/hr Q1H PRN IV hypotension; Start 07/17/18 at 14:55; Stop 07/17/18 at 20:54; Status DC Sodium Chloride 1,000 ml @ 400 mls/hr Q2H30M PRN IV PATENCY; Start 07/17/18 at 14:55; Stop 07/18/18 at 02:54; Status DC Info (PHARMACY MONITORING -- do not chart) 1 each PRN DAILY PRN MC SEE COMMENTS ; Start 07/17/18 at 15:00; Stop 07/17/18 at 15:00; Status DC Info (PHARMACY MONITORING -- do not chart) 1 each PRN DAILY PRN MC SEE COMMENTS ; Start 07/17/18 at 15:00; Stop 07/17/18 at 15:00; Status DC Sodium Chloride 1,000 ml @ 1,000 mls/hr Q1H PRN IV hypotension; Start 07/18/18 at 11:30; Stop 07/18/18 at 17:29; Status DC Sodium Chloride 1,000 ml @ 400 mls/hr Q2H30M PRN IV PATENCY; Start 07/18/18 at 11:30; Stop 07/18/18 at 23:29 Info (PHARMACY MONITORING -- do not chart) 1 each PRN DAILY PRN MC SEE COMMENTS ; Start 07/18/18 at 12:30; Status UNV Info (PHARMACY MONITORING -- do not chart) 1 each PRN DAILY PRN MC SEE COMMENTS ; Start 07/18/18 at 12:30; Status UNV Vancomycin HCl 500 mg/Sodium Chloride 100 ml @ 100 mls/hr 1X ONCE IV Last administered on 07/18/18at 16:40; Start 07/18/18 at 16:00; Stop 07/18/18 at 16:59 ; Status DC Active Scripts Active Reported Dialyvite Tablet (Folic Acid/Vitamin B Comp W-C) 1 Each Tablet 1 Each PO QPM QPM @ 1900 [hectorol] QTUTHSA [epogen] QTUTHSA Mirtazapine 15 Mg Tablet 1 Tab PO QHS Zoloft (Sertraline Hcl) 100 Mg Tablet 1 Tab PO DAILY Requip (Ropinirole Hcl) 1 Mg Tablet 3 Mg PO BID Mirtazapine 15 Mg Tablet 1 Tab PO QHS Megestrol Acetate 40 Mg Tablet 40 Mg PO BID Vitals/I & O Vital Sign - Last 24 Hours 07/17/18 07/18/18 07/18/18 07/18/18 23:00 03:00 06:51 07:00 Temp 98.4 98.3 97.9 98.4 98.3 97.9 Pulse 88 81 88 Resp 18 18 16 B/P (MAP) 146/75 (98) 146/80 (102) 144/71 (95) Pulse Ox 96 96 99 97 O2 Delivery Room Air Room Air Room Air Room Air 07/18/18 07/18/18 07/18/18 07/18/18 08:00 10:59 15:00 19:00 Temp 97.8 97.7 99.1 97.8 97.7 99.1 Pulse 94 90 92 Resp 18 B/P (MAP) 119/69 (86) 125/68 (87) 110/70 (83) Pulse Ox 96 96 100 O2 Delivery Room Air Room Air Room Air 07/18/18 20:30 Pulse Ox 99 O2 Delivery Room Air Intake and Output 07/17/18 07/17/18 07/18/18 15:00 23:00 07:00 Intake Total 0 ml Output Total 0 ml Balance 0 ml 0 ml Nutrition Consultation Dietary Evaluation: Recommendations by RD: Add supplement feedings Comments: continue nepro bid encourage po intake Expected Outcomes/Goals: po intake to improve to 50% of meals- goal ongoing Interpretation of weight loss: >1-2% in 1 week Malnutrition Findings: Food and Nutrition Intake (Sev: <50% est energy req 5days Body Fat Depletion (Non Severe: Mod to Severe Weight Status: Underweight SOFIYA MCCORMACK MD Jul 18, 2018 22:26
[2018-07-18 23:00] VITALS: BP 121/68
[2018-07-19 03:00] VITALS: BP 123/73
[2018-07-19] MEDS: VANCOMYCIN 125 MG/2.5 ML ORAL SOLUTION. PO SCH ×4 (05:19→17:25)
[2018-07-19] MEDS: CLOTRIMAZOLE 10 MG TROCHE. MM SCH ×5 (05:19→21:59)
[2018-07-19 07:00] VITALS: BP 128/68
[2018-07-19] MEDS: IPRATRPIUM/ALBUTEROL 0.5/2.5MG 3 ML NEBU. NEB SCH ×2 (08:12→20:22)
--- NOTE | 2018-07-19 08:48 | PDOC ---
PROGRESS NOTES Chief Complaint Chief Complaint Acute Anemia Leukocytosis - likely UTI Vascular dementia HTN Anxiety Depression End-stage renal disease on dialysis Saturday, Saturday, (new dx 2019) History of Present Illness History of Present Illness 72 yo f w/ PMHx CVA with vascular dementia, HTN, anxiety, depression, end-stage renal disease on dialysis Saturday, Saturday, (new dx 2019), last dialyzed on Saturday who p/w fever, decreased appetite, fever, decreased energy/ weakness, symptoms began 3 days ago. Found with Hb of 5.6 in ED, transfused PRBC to 7.5. She was noted with loose stools as well. She has history dementia but she is alert to person only, but is able to carry on a conversation and give some health history. She does not refuse dialysis every day. She was seen here this past January 2018 and May 2018 and sent home with home health ([facility]). She has a DPOA, Ivy the nephew has been texting who has been informed of hospital admission. 07/15: Seen on dialysis today. She has some chills with this. Notably, lab called about 3/4 bottles positive on blood culture for GPC in clusters. 07/16: Feeling terrible today. Has diarrhea x2 POSITIVE FOR C. DIFFICILE. She has bilateral LQ pain. Started on oral vancomycin and continued on IV Vancomycin 07/17: Still with poor PO intake 07/18: HD catheter pulled. Culture looks like MRSA Still with some loose stools. She has little appetite for fear of BM. Advised ok to eat. She does not want appetite stimulants. Denies SOB and CP. She does have some catheter site pain where it was pulled A/P: MRSA bacteremia, present on admission on 07/14/2018 - consulted ID, vanco Add prn pain medications C. Diff diarrhea - present on admission, now on oral vanco Anemia, status post packed red blood cells - will monitor Thrush - treat Leukocytosis - now with HR 99, she meets criteria for SIRS and with bacteremia this is SEPSIS, poa. Could possibly simply be reactive due to her anemia ESRD - on hemodialysis. Nephrology consulted Severe protein malnutrition - likely 2/2 her dementia and currently infectious process Cont inpatient Vitals Vitals Vital Signs Date Time Temp Pulse Resp B/P (MAP) Pulse Ox O2 Delivery O2 Flow Rate FiO2 2/23/19 08:13 100 Room Air 07/19/18 03:00 98.2 73 16 123/73 (90) 98.2 Physical Exam Physical Exam CONSTITUTIONAL: She is cooperative. She is in no acute distress. She has a little bit of a tremor. she is in bed - looks better HEENT: Pupils are equal and reactive, with normal conjunctivae. Oral cavity, pharynx - mild thrush - better NECK: Supple. No JVD. LUNGS: Clear to auscultation. HEART: S1, S2. ABDOMEN: Soft, mild nontender. No guarding or rebound. EXTREMITIES: No clubbing, cyanosis or gross edema. SKIN: Warm to touch, without signs of rash. NEUROLOGIC: She is nonfocal, but is somewhat of a poor historian. She seems to have a little bit of a tremor. Right chest hemodialysis catheter, without signs of complications. Affect is pleasant. General: Cooperative, No acute distress, Other (poorly oriented) Lungs: Clear Abdomen: Normal bowel sounds, Soft Extremities: No cyanosis, Normal pulses Skin: No rashes, No significant lesion Labs LABS Laboratory Tests Test 07/18/18 13:30 Hepatitis B Surface Antigen Nonreactive (Nonreactive) Hepatitis B Surface Antibody Nonreactive Assessment and Plan Assessmemt and Plan Problems Medical Problems: (1) End stage renal disease Status: Acute (2) Generalized weakness Status: Acute Comment Review of Relevant I have reviewed the following items linda (where applicable) has been applied. Labs Laboratory Tests Test 07/18/18 13:30 Hepatitis B Surface Antigen Nonreactive (Nonreactive) Hepatitis B Surface Antibody Nonreactive Laboratory Tests Test 07/18/18 13:30 Hepatitis B Surface Antigen Nonreactive (Nonreactive) Hepatitis B Surface Antibody Nonreactive Microbiology 07/18/18 Blood Culture - Final, Complete 07/14/18 Urine Culture - Final, Complete 07/14/18 Urine Culture Result 1 (MARYANN) - Final, Complete Medications Current Medications Piperacillin Sod/ Tazobactam Sod 4.5 gm/Sodium Chloride 100 ml @ 200 mls/hr 1X ONCE IV Last administered on 07/14/18at 15:58; Start 07/14/18 at 15:00; Stop 07/14/18 at 15:29; Status DC Vancomycin HCl (Vanco Per Pharmacy) 1 each PRN DAILY PRN MC SEE COMMENTS Last administered on 07/18/18 15:52; Start 07/14/18 at 14:45 Vancomycin HCl 1.25 gm/Sodium Chloride 250 ml @ 166.667 mls/hr 1X ONCE IV Last administered on 07/14/18 18:10; Start 07/14/18 at 15:00; Stop 07/14/18 at 16:29; Status DC Ondansetron HCl (Zofran) 4 mg PRN Q8HRS PRN IV NAUSEA/VOMITING; Start 07/14/18 at 17:15; Stop 07/15/18 at 17:14; Status DC Morphine Sulfate (Morphine Sulfate) 2 mg PRN Q2HR PRN IV PAIN; Start 07/14/18 at 17:15; Stop 07/15/18 at 17:14; Status DC Acetaminophen (Tylenol) 650 mg PRN Q4HRS PRN PO FEVER; Start 07/14/18 at 17:15 ; Stop 07/15/18 at 17:14; Status DC Vancomycin HCl (Vancomycin Random Level) 1 each 1X ONCE MC ; Start 07/15/18 at 06:00; Stop 07/15/18 at 06:01; Status DC Vitamin B Complex/ Vitamin C (Dinorah-Ralph) 1 tab QPM PO Last administered on 07/18 18:27; Start 07/15/18 at 18:00 Megestrol Acetate (Megace) 40 mg BID PO Last administered on 07/18/18at 21:22; Start 07/15/18 at 09:00 Mirtazapine (Remeron) 15 mg QHS PO Last administered on 07/18/18 21:22; Start 07/14/18 at 22:00 Non-Formulary Medication (Mirtazapine ) 1 tab QHS PO ; Start 07/15/18 at 21:00; Status UNV Ropinirole HCl (Requip) 3 mg BID PO Last administered on 07/16/18 18:21; Start 07/14/18 at 22:00; Stop 07/16/18 at 19:54; Status DC Sertraline HCl (Zoloft) 100 mg DAILY PO Last administered on 07/18/18at 10:21; Start 07/15/18 at 09:00 Phytonadione (Mephyton Oral Soln) 5 mg 1X ONCE PO Last administered on 2/18/ 19at 22:14; Start 07/14/18 at 22:00; Stop 07/14/18 at 22:01; Status DC Vitamin B Complex (Folbic Tablet) 1 tab DAILY PO Last administered on at 18:27; Start 07/15/18 at 09:00 Albuterol/ Ipratropium (Duoneb) 3 ml RTBID NEB Last administered on 07/19/18at 08:12; Start 07/15/18 at 08:00 Sodium Chloride 1,000 ml @ 1,000 mls/hr Q1H PRN IV hypotension; Start 07/15/18 at 10:48; Stop 07/15/18 at 16:47; Status DC Albumin Human 200 ml @ 200 mls/hr 1X PRN PRN IV Hypotension; Start 07/15/18 at 11:00; Stop 07/15/18 at 16:59; Status DC Sodium Chloride 1,000 ml @ 400 mls/hr Q2H30M PRN IV PATENCY; Start 07/15/18 at 10:48; Stop 07/15/18 at 22:47; Status DC Info (PHARMACY MONITORING -- do not chart) 1 each PRN DAILY PRN MC SEE COMMENTS ; Start 07/15/18 at 11:00; Status UNV Info (PHARMACY MONITORING -- do not chart) 1 each PRN DAILY PRN MC SEE COMMENTS ; Start 07/15/18 at 11:00 Vancomycin HCl 500 mg/Sodium Chloride 100 ml @ 100 mls/hr QTUTHSA IV Last administered on 07/17/18at 16:44; Start 07/17/18 at 16:00; Stop 07/18/18 at 15:41 ; Status DC Lactobacillus Rhamnosus (Culturelle) 1 cap BID PO Last administered on at 21:22; Start 07/16/18 at 21:00 Clotrimazole (Mycelex) 10 mg 5XDAY MM Last administered on 07/19/18at 05:19; Start 07/16/18 at 14:00 Ropinirole HCl (Requip) 3 mg DAILY PO Last administered on 07/18/18at 10:21; Start 07/17/18 at 09:00 Ropinirole HCl (Requip) 2 mg QHS PO Last administered on 07/18/18at 21:22; Start 07/16/18 at 21:00 Ropinirole HCl (Requip) 1 mg PRN QEVNG PRN PO RLS Last administered on at 15:53; Start 07/16/18 at 20:00 Vancomycin HCl (Vancomycin Oral Solution) 125 mg Q6HRS PO Last administered on 07/19/18at 05:19; Start 07/17/18 at 00:00 Sodium Chloride 1,000 ml @ 1,000 mls/hr Q1H PRN IV hypotension; Start 07/17/18 at 14:55; Stop 07/17/18 at 20:54; Status DC Sodium Chloride 1,000 ml @ 400 mls/hr Q2H30M PRN IV PATENCY; Start 07/17/18 at 14:55; Stop 07/18/18 at 02:54; Status DC Info (PHARMACY MONITORING -- do not chart) 1 each PRN DAILY PRN MC SEE COMMENTS ; Start 07/17/18 at 15:00; Stop 07/17/18 at 15:00; Status DC Info (PHARMACY MONITORING -- do not chart) 1 each PRN DAILY PRN MC SEE COMMENTS ; Start 07/17/18 at 15:00; Stop 07/17/18 at 15:00; Status DC Sodium Chloride 1,000 ml @ 1,000 mls/hr Q1H PRN IV hypotension; Start 07/18/18 at 11:30; Stop 07/18/18 at 17:29; Status DC Sodium Chloride 1,000 ml @ 400 mls/hr Q2H30M PRN IV PATENCY; Start 07/18/18 at 11:30; Stop 07/18/18 at 23:29; Status DC Info (PHARMACY MONITORING -- do not chart) 1 each PRN DAILY PRN MC SEE COMMENTS ; Start 07/18/18 at 12:30; Status UNV Info (PHARMACY MONITORING -- do not chart) 1 each PRN DAILY PRN MC SEE COMMENTS ; Start 07/18/18 at 12:30; Status UNV Vancomycin HCl 500 mg/Sodium Chloride 100 ml @ 100 mls/hr 1X ONCE IV Last administered on 07/18/18at 16:40; Start 07/18/18 at 16:00; Stop 07/18/18 at 16:59 ; Status DC Active Scripts Active Reported Dialyvite Tablet (Folic Acid/Vitamin B Comp W-C) 1 Each Tablet 1 Each PO QPM QPM @ 1900 [hectorol] QTUTHSA [epogen] QTUTHSA Mirtazapine 15 Mg Tablet 1 Tab PO QHS Zoloft (Sertraline Hcl) 100 Mg Tablet 1 Tab PO DAILY Requip (Ropinirole Hcl) 1 Mg Tablet 3 Mg PO BID Mirtazapine 15 Mg Tablet 1 Tab PO QHS Megestrol Acetate 40 Mg Tablet 40 Mg PO BID Vitals/I & O Vital Sign - Last 24 Hours 07/18/18 07/18/18 07/18/18 07/18/18 10:59 15:00 19:00 19:40 Temp 97.8 97.7 99.1 97.8 97.7 99.1 Pulse 94 90 92 Resp 18 18 18 B/P (MAP) 119/69 (86) 125/68 (87) 110/70 (83) Pulse Ox 96 96 100 O2 Delivery Room Air Room Air Room Air 07/18/18 07/18/18 07/19/18 07/19/18 20:30 23:00 03:00 08:13 Temp 98.9 98.2 98.9 98.2 Pulse 96 73 Resp 20 16 B/P (MAP) 121/68 (85) 123/73 (90) Pulse Ox 99 99 96 100 O2 Delivery Room Air Room Air Room Air Intake and Output 07/18/18 07/18/18 07/19/18 14:59 22:59 06:59 Intake Total 300 ml 100 ml 150 ml Balance 300 ml 100 ml 150 ml Nutrition Consultation Dietary Evaluation: Recommendations by RD: Add supplement feedings Comments: continue nepro bid encourage po intake Expected Outcomes/Goals: po intake to improve to 50% of meals- goal ongoing Interpretation of weight loss: >1-2% in 1 week Malnutrition Findings: Food and Nutrition Intake (Sev: <50% est energy req 5days Body Fat Depletion (Non Severe: Mod to Severe Weight Status: Underweight SOFIYA MCCORMACK MD Jul 19, 2018 08:48
[2018-07-19] MEDS: SERTRALINE 50 MG TABLET. PO SCH (09:31)
[2018-07-19] MEDS: rOPINIRole 1 MG TABLET. PO SCH ×2 (09:31→21:58)
[2018-07-19] MEDS: MEGESTROL 20 MG TABLET. PO SCH ×2 (09:31→21:59)
[2018-07-19] MEDS: LACTOBACILLUS RHAMNOSUS GG 1 CAPSULE. PO SCH ×2 (09:31→21:58)
--- NOTE | 2018-07-19 10:11 | PDOC ---
Infectious Disease Note Subjective Subjective + loose stools w/ mild cramps Denies N/V/F/C/SOA ROS ROS per HPI otherwise neg Vital Sign Vital Signs Vital Signs Date Time Temp Pulse Resp B/P (MAP) Pulse Ox O2 Delivery O2 Flow Rate FiO2 07/19/18 08:13 100 Room Air 07/19/18 07:00 98.4 88 16 128/68 (88) 98.4 Physical Exam PHYSICAL EXAM GENERAL: Lying down, alert, NAD HEENT: Pupils are equal and reactive, with normal conjunctivae. Oral cavity, pharynx - mild thrush - better + dentures NECK: Supple. LUNGS: Clear to auscultation. HEART: S1, S2. ABDOMEN: Soft, mild nontender. No guarding or rebound. EXTREMITIES: No clubbing, cyanosis or gross edema. SKIN: Warm to touch, without signs of rash. NEUROLOGIC: She is nonfocal, but is somewhat of a poor historian. Right chest hemodialysis catheter - out Labs Lab Laboratory Tests Test 07/18/18 13:30 Hepatitis B Surface Antigen Nonreactive (Nonreactive) Hepatitis B Surface Antibody Nonreactive Micro 218. BLD CULT RESULT 1 Final Comment Methicillin - resistant Staphylococcus aureus Based on resistance to oxacillin this isolate would be resistant to all currently available beta-lactam antimicrobial agents, with the exception of the newer cephalosporins with anti-MRSA activity, such as Ceftaroline ANTIMICROBIAL SUSCEPTIBILITY Final Comment S = Susceptible; I = Intermediate; R = Resistant P = Positive; N = Negative MICS are expressed in micrograms per mL Antibiotic RSLT#1 RSLT#2 RSLT#3 RSLT#4 Ciprofloxacin R>=8 Gentamicin S<=0.5 Levofloxacin R>=8 Linezolid S =2 Nitrofurantoin S<=16 Oxacillin R>=4 Penicillin R>=0.5 Rifampin S<=0.5 Tetracycline R>=16 Trimethoprim/Sulfa S<=10 Vancomycin S =1 Objective Assessment Staph aureus - bacteremia POA 07/14 3/4 bottles, MRSA. repeat BC 07/18 pending. echo pending -s/p tunneled HDC line removal on 07/18. Thrush Anemia - S/p PRBCs Leukocytosis - better CKD on HD Severe Protein malnutrition Plan Plan of Care C-diff - 07/16 - po Vanc Cont IV Vanc Probiotics ECHO report pending Repeat BC from 07/18 pending f/u am labs Contact isolation Refusing to eat and participate D/w Nursing Attending Co-Sign Attending Co-Sign The patient was seen and interviewed as well as examined at the bedside. The chart was reviewed. The case was discussed. Agree with the plan of care. TEVIN HOYOS APRN Jul 19, 2018 10:11 KISHOR FERRARI MD Jul 19, 2018 13:59
[2018-07-19 11:00] VITALS: BP 108/66
--- NOTE | 2018-07-19 11:34 | PDOC ---
SUBJECTIVE ROS Follow-up for ESRD on hemodialysis Saturday Patient's by mouth intake is marginal. She claims she does not want to eat much. I offered her liquid nutritional supplements and she claims it causes diarrhea CVS: no Orthopnea, no CP RESP: no SOB, no BROWN GI: no Nausea, no Vomiting + diarrhea : no Dysuria, no Urgency OBJECTIVE Vital Signs Vital Signs Date Time Temp Pulse Resp B/P (MAP) Pulse Ox O2 Delivery O2 Flow Rate FiO2 07/19/18 11:00 97.9 85 18 108/66 (80) 99 Room Air 97.9 I & 0 Intake and Output 07/19/18 07:00 Intake Total 550 ml Balance 550 ml Intake Oral 550 ml # Bowel Movements 1 PHYSICAL EXAM Physical Exam GEN: Awake, Oriented x 1-2, In no distress EYES: Vision Unchanged, Conjunctiva Normal EN: No EN Drainage, Mucous Membranes moist NECK: no JVD, no JVP, Supple, no Thyromegaly CVS: S1S2, soft Murmur, No Gallop, No Rub,no Edema RESP: no Rales, no Rhonchi,no Acc. Muscle Use GI: BS + ve, NO Bruit, Non Tender, Non Distended : no CVA tenderness, no Suprapubic Tenderness DIAGNOSIS/ASSESSMENT Assessment & Plan ESRD: Current fluid and E-lyte status does not necessitate emergent need for dialysis. Will re-evaluate for dialysis in the am and continue on Saturday schedule. Her next dialysis will be on Saturday after dialysis catheter placement ANEMIA; Aranap as ordered, Transfuse with next HD as needed if hemoglobin less than 7 Hypokalemia: Replace orally Severe hypoalbuminemia: IV albumin will be ordered. Patient may benefit from TPN given presumption of severe malnutrition associated with C. difficile colitis HTN: Current BP meds as reviewed. See orders for changes. She may benefit from dialysis access creation once infection is cleared Discussed Plan of Care with a shunt at bedside COMMENT/RELEVANT DATA Meds Current Medications Medications (Trade) Dose Ordered Sig/Jaswinder Start Time Stop Time Status Last Admin Dose Admin Acetaminophen (Tylenol) 650 mg PRN Q4HRS PRN 07/14/18 17:15 07/15/18 17:14 DC Albumin Human 200 ml @ 200 mls/hr 1X PRN PRN 07/15/18 11:00 07/15/18 16:59 DC Albuterol/ Ipratropium (Duoneb) 3 ml RTBID 07/15/18 08:00 07/19/18 08:12 3 ML Clotrimazole (Mycelex) 10 mg 5XDAY 07/16/18 14:00 07/19/18 09:30 10 MG Info (PHARMACY MONITORING -- do not chart) 1 each PRN DAILY PRN 07/18/18 12:30 UNV Lactobacillus Rhamnosus (Culturelle) 1 cap BID 07/16/18 21:00 07/19/18 09:31 1 CAP Megestrol Acetate (Megace) 40 mg BID 07/15/18 09:00 07/19/18 09:31 40 MG Mirtazapine (Remeron) 15 mg QHS 07/14/18 22:00 07/18/18 21:22 15 MG Morphine Sulfate (Morphine Sulfate) 2 mg PRN Q2HR PRN 07/14/18 17:15 07/15/18 17:14 DC Non-Formulary Medication (Mirtazapine ) 1 tab QHS 07/15/18 21:00 UNV Ondansetron HCl (Zofran) 4 mg PRN Q8HRS PRN 07/14/18 17:15 07/15/18 17:14 DC Phytonadione (Mephyton Oral Soln) 5 mg 1X ONCE 07/14/18 22:00 07/14/18 22:01 DC 07/14/18 22:14 5 MG Piperacillin Sod/ Tazobactam Sod 4.5 gm/Sodium Chloride 100 ml @ 200 mls/hr 1X ONCE 07/14/18 15:00 07/14/18 15:29 DC 07/14/18 15:58 200 MLS/HR Ropinirole HCl (Requip) 1 mg PRN QEVNG PRN 07/16/18 20:00 07/18/18 15:53 1 MG Sertraline HCl (Zoloft) 100 mg DAILY 07/15/18 09:00 07/19/18 09:31 100 MG Sodium Chloride 1,000 ml @ 400 mls/hr Q2H30M PRN 07/18/18 11:30 07/18/18 23:29 DC Vancomycin HCl (Vanco Per Pharmacy) 1 each PRN DAILY PRN 07/14/18 14:45 07/18/18 15:52 1 EACH Vancomycin HCl (Vancomycin Random Level) 1 each 1X ONCE 07/15/18 06:00 07/15/18 06:01 DC Vancomycin HCl (Vancomycin Oral Solution) 125 mg Q6HRS 07/17/18 00:00 07/19/18 05:19 125 MG Vancomycin HCl 1.25 gm/Sodium Chloride 250 ml @ 166.667 mls/hr 1X ONCE 07/14/18 15:00 07/14/18 16:29 DC 07/14/18 18:10 166.667 MLS/HR Vancomycin HCl 500 mg/Sodium Chloride 100 ml @ 100 mls/hr 1X ONCE 07/18/18 16:00 07/18/18 16:59 DC 07/18/18 16:40 100 MLS/HR Vitamin B Complex (Folbic Tablet) 1 tab DAILY 07/15/18 09:00 07/18/18 18:27 1 TAB Vitamin B Complex/ Vitamin C (Dinorah-Ralph) 1 tab QPM 07/15/18 18:00 07/18/18 18:27 1 TAB Lab Laboratory Tests Test 07/18/18 13:30 Hepatitis B Surface Antigen Nonreactive (Nonreactive) Hepatitis B Surface Antibody Nonreactive Results All relevant outside records, renal labs, imaging studies, telemetry/EKG's were reviewed. OKSANA GOLD MD Jul 19, 2018 11:34
[2018-07-19] MEDS: POTASSIUM CHLORIDE 20 MEQ TABLET.ER. PO SCH (12:23)
[2018-07-19] MEDS: AMINO AC 3%/ELECTROLYTE/GLYCER 1,000 ML IV SCH (12:23)
--- NOTE | 2018-07-19 14:12 | NUR ---
pt refusing to be repositioned and is now refusing multiple medications. states she is having abdominal pain but refusing pain medication offered.
[2018-07-19] MEDS: rOPINIRole 1 MG TABLET. PO PRN (14:56)
[2018-07-19 15:00] VITALS: BP 145/86
[2018-07-19] MEDS: VITAMIN B12,B9,B6 COMPLEX 1 TABLET. PO SCH (17:24)
[2018-07-19] MEDS: FOLIC/VIT B COMP W-C (RENAL) TABLET. PO SCH ×2 (17:25→17:36)
[2018-07-19 19:00] VITALS: BP 159/80
[2018-07-19] MEDS ORDERED: HYDROcodone/APAP 5/325MG 1 TAB TABLET PO PRN (20:00)
[2018-07-19] MEDS: MIRTAZAPINE 15 MG TABLET PO SCH (21:58)
[2018-07-19 22:31] VITALS: BP 162/87
[2018-07-20] MEDS: VANCOMYCIN 125 MG/2.5 ML ORAL SOLUTION. PO SCH ×4 (00:16→17:12)
[2018-07-20 02:43] VITALS: BP 164/94
[2018-07-20] MEDS: AMINO AC 3%/ELECTROLYTE/GLYCER 1,000 ML IV SCH ×3 (04:06→17:12)
[2018-07-20 05:32] LABS: CALCIUM 8.8 mg/dL (8.5-10.1); CREATININE 2.7 mg/dL (0.6-1.0); GFR 17.4; POTASSIUM 3.7 mmol/L (3.5-5.1)
[2018-07-20 05:40] LABS: HEMATOCRIT 23.6 % (36.0-47.0); HEMOGLOBIN 7.3 g/dL (12.0-15.5); RED BLOOD COUNT 2.83 x10^6/uL (3.50-5.40); RED CELL DISTRIBUTION WIDTH 17.9 % (11.5-14.5); WHITE BLOOD COUNT 16.2 x10^3/uL (4.0-11.0)
[2018-07-20] MEDS: CLOTRIMAZOLE 10 MG TROCHE. MM SCH ×5 (06:19→20:45)
[2018-07-20 07:00] VITALS: BP 149/95
--- NOTE | 2018-07-20 08:19 | PDOC ---
PROGRESS NOTES Chief Complaint Chief Complaint Acute Anemia Leukocytosis - likely UTI Vascular dementia HTN Anxiety Depression End-stage renal disease on dialysis Saturday, Saturday, (new dx 2019) History of Present Illness History of Present Illness 72 yo f w/ PMHx CVA with vascular dementia, HTN, anxiety, depression, end-stage renal disease on dialysis Saturday, Saturday, (new dx 2019), last dialyzed on Saturday who p/w fever, decreased appetite, fever, decreased energy/ weakness, symptoms began 3 days ago. Found with Hb of 5.6 in ED, transfused PRBC to 7.5. She was noted with loose stools as well. She has history dementia but she is alert to person only, but is able to carry on a conversation and give some health history. She does not refuse dialysis every day. She was seen here this past January 2018 and May 2018 and [facility] She has a DPOA, Ivy the nephew has been texting who has been informed of hospital admission. 07/15: Seen on dialysis today. She has some chills with this. Notably, lab called about 3/4 bottles positive on blood culture for GPC in clusters. 07/16: Feeling terrible today. Has diarrhea x2 POSITIVE FOR C. DIFFICILE. She has bilateral LQ pain. Started on oral vancomycin and continued on IV Vancomycin 07/17: Still with poor PO intake 07/18: HD catheter pulled. Culture looks like MRSA 07/19: Still not eating, started PPN. Still with repeat blood cultures 1/4 bottles positive Still with some loose stools. Positive 2/4 repeat blood cultures after line was pulled. She has little appetite for fear of BM. She does not want appetite stimulants, states she does not want her dialysis catheter back in and wants to . Denies SOB and CP. She does have some catheter site pain where it was pulled. A/P: Likely MRSA bacteremia, present on admission on 07/14/2018 - consulted [facility]. Still with positive cultures, will need to wait to replace cath until these are negative. In the meantime she does not wish to continue dialysis. I will consult palliative care Added prn pain medications C. Diff diarrhea - present on admission, now on oral vanco Anemia, status post packed red blood cells - will monitor Thrush - treat Leukocytosis - now with HR 99, she meets criteria for SIRS and with bacteremia this is SEPSIS, poa. ESRD - on hemodialysis. Nephrology consulted. May need to hold of on dialysis until at least Saturday as she continues to have blood cultures positive Severe protein malnutrition - likely 2/2 her dementia and currently infectious process Cont inpatient. Consult palliative Vitals Vitals Vital Signs Date Time Temp Pulse Resp B/P (MAP) Pulse Ox O2 Delivery O2 Flow Rate FiO2 07/20/18 07:00 98.2 85 16 149/95 (113) 98 Room Air 98.2 Physical Exam Physical Exam GENERAL: Lying down, alert, NAD HEENT: Pupils are equal and reactive, with normal conjunctivae. Oral cavity, pharynx - mild thrush - better + dentures NECK: Supple. LUNGS: Clear to auscultation. HEART: S1, S2. ABDOMEN: Soft, mild nontender. No guarding or rebound. EXTREMITIES: No clubbing, cyanosis or gross edema. SKIN: Warm to touch, without signs of rash. NEUROLOGIC: She is nonfocal, but is somewhat of a poor historian. Right chest hemodialysis catheter - out General: Cooperative, No acute distress, Other (poorly oriented) Lungs: Clear Abdomen: Normal bowel sounds, Soft Extremities: No cyanosis, Normal pulses Skin: No rashes, No significant lesion Labs LABS Laboratory Tests Test 07/20/18 04:50 White Blood Count 16.2 x10^3/uL (4.0-11.0) Red Blood Count 2.83 x10^6/uL (3.50-5.40) Hemoglobin 7.3 g/dL (12.0-15.5) Hematocrit 23.6 % (36.0-47.0) Mean Corpuscular Volume 84 fL (79-100) Mean Corpuscular Hemoglobin 26 pg (25-35) Mean Corpuscular Hemoglobin Concent 31 g/dL (31-37) Red Cell Distribution Width 17.9 % (11.5-14.5) Platelet Count 593 x10^3/uL (140-400) Sodium Level 136 mmol/L (136-145) Potassium Level 3.7 mmol/L (3.5-5.1) Chloride Level 101 mmol/L (98-107) Carbon Dioxide Level 27 mmol/L (21-32) Anion Gap 8 (6-14) Blood Urea Nitrogen 16 mg/dL (7-20) Creatinine 2.7 mg/dL (0.6-1.0) Estimated GFR (Cockcroft-Gault) 17.4 Glucose Level 99 mg/dL (70-99) Calcium Level 8.8 mg/dL (8.5-10.1) Assessment and Plan Assessmemt and Plan Problems Medical Problems: (1) End stage renal disease Status: Acute (2) Generalized weakness Status: Acute Comment Review of Relevant I have reviewed the following items linda (where applicable) has been applied. Labs Laboratory Tests Test 07/18/18 13:30 07/20/18 04:50 Hepatitis B Surface Antigen Nonreactive (Nonreactive) Hepatitis B Surface Antibody Nonreactive White Blood Count 16.2 x10^3/uL (4.0-11.0) Red Blood Count 2.83 x10^6/uL (3.50-5.40) Hemoglobin 7.3 g/dL (12.0-15.5) Hematocrit 23.6 % (36.0-47.0) Mean Corpuscular Volume 84 fL (79-100) Mean Corpuscular Hemoglobin 26 pg (25-35) Mean Corpuscular Hemoglobin Concent 31 g/dL (31-37) Red Cell Distribution Width 17.9 % (11.5-14.5) Platelet Count 593 x10^3/uL (140-400) Sodium Level 136 mmol/L (136-145) Potassium Level 3.7 mmol/L (3.5-5.1) Chloride Level 101 mmol/L (98-107) Carbon Dioxide Level 27 mmol/L (21-32) Anion Gap 8 (6-14) Blood Urea Nitrogen 16 mg/dL (7-20) Creatinine 2.7 mg/dL (0.6-1.0) Estimated GFR (Cockcroft-Gault) 17.4 Glucose Level 99 mg/dL (70-99) Calcium Level 8.8 mg/dL (8.5-10.1) Laboratory Tests Test 07/20/18 04:50 White Blood Count 16.2 x10^3/uL (4.0-11.0) Red Blood Count 2.83 x10^6/uL (3.50-5.40) Hemoglobin 7.3 g/dL (12.0-15.5) Hematocrit 23.6 % (36.0-47.0) Mean Corpuscular Volume 84 fL (79-100) Mean Corpuscular Hemoglobin 26 pg (25-35) Mean Corpuscular Hemoglobin Concent 31 g/dL (31-37) Red Cell Distribution Width 17.9 % (11.5-14.5) Platelet Count 593 x10^3/uL (140-400) Sodium Level 136 mmol/L (136-145) Potassium Level 3.7 mmol/L (3.5-5.1) Chloride Level 101 mmol/L (98-107) Carbon Dioxide Level 27 mmol/L (21-32) Anion Gap 8 (6-14) Blood Urea Nitrogen 16 mg/dL (7-20) Creatinine 2.7 mg/dL (0.6-1.0) Estimated GFR (Cockcroft-Gault) 17.4 Glucose Level 99 mg/dL (70-99) Calcium Level 8.8 mg/dL (8.5-10.1) Microbiology 07/18/18 Blood Culture - Preliminary, Resulted NO GROWTH AFTER 1 DAY 07/14/18 Urine Culture - Final, Complete 07/14/18 Urine Culture Result 1 (MARYANN) - Final, Complete Medications Current Medications Piperacillin Sod/ Tazobactam Sod 4.5 gm/Sodium Chloride 100 ml @ 200 mls/hr 1X ONCE IV Last administered on 07/14/18at 15:58; Start 07/14/18 at 15:00; Stop 07/14/18 at 15:29; Status DC Vancomycin HCl (Vanco Per Pharmacy) 1 each PRN DAILY PRN MC SEE COMMENTS Last administered on 07/18/18at 15:52; Start 07/14/18 at 14:45 Vancomycin HCl 1.25 gm/Sodium Chloride 250 ml @ 166.667 mls/hr 1X ONCE IV Last administered on 07/14/18at 18:10; Start 07/14/18 at 15:00; Stop 07/14/18 at 16:29; Status DC Ondansetron HCl (Zofran) 4 mg PRN Q8HRS PRN IV NAUSEA/VOMITING; Start 07/14/18 at 17:15; Stop 07/15/18 at 17:14; Status DC Morphine Sulfate (Morphine Sulfate) 2 mg PRN Q2HR PRN IV PAIN; Start 07/14/18 at 17:15; Stop 07/15/18 at 17:14; Status DC Acetaminophen (Tylenol) 650 mg PRN Q4HRS PRN PO FEVER; Start 07/14/18 at 17:15 ; Stop 07/15/18 at 17:14; Status DC Vancomycin HCl (Vancomycin Random Level) 1 each 1X ONCE MC ; Start 07/15/18 at 06:00; Stop 07/15/18 at 06:01; Status DC Vitamin B Complex/ Vitamin C (Dinorah-Ralph) 1 tab QPM PO Last administered on 07/18at 18:27; Start 07/15/18 at 18:00 Megestrol Acetate (Megace) 40 mg BID PO Last administered on 07/19/18 21:59; Start 07/15/18 at 09:00 Mirtazapine (Remeron) 15 mg QHS PO Last administered on 07/19/18 21:58; Start 07/14/18 at 22:00 Non-Formulary Medication (Mirtazapine ) 1 tab QHS PO ; Start 07/15/18 at 21:00; Status UNV Ropinirole HCl (Requip) 3 mg BID PO Last administered on 07/16/18 18:21; Start 07/14/18 at 22:00; Stop 07/16/18 at 19:54; Status DC Sertraline HCl (Zoloft) 100 mg DAILY PO Last administered on 07/19/18at 09:31; Start 07/15/18 at 09:00 Phytonadione (Mephyton Oral Soln) 5 mg 1X ONCE PO Last administered on at 22:14; Start 07/14/18 at 22:00; Stop 07/14/18 at 22:01; Status DC Vitamin B Complex (Folbic Tablet) 1 tab DAILY PO Last administered on 17:24; Start 07/15/18 at 09:00 Albuterol/ Ipratropium (Duoneb) 3 ml RTBID NEB Last administered on 07/19/18at 20:22; Start 07/15/18 at 08:00 Sodium Chloride 1,000 ml @ 1,000 mls/hr Q1H PRN IV hypotension; Start 07/15/18 at 10:48; Stop 07/15/18 at 16:47; Status DC Albumin Human 200 ml @ 200 mls/hr 1X PRN PRN IV Hypotension; Start 07/15/18 at 11:00; Stop 07/15/18 at 16:59; Status DC Sodium Chloride 1,000 ml @ 400 mls/hr Q2H30M PRN IV PATENCY; Start 07/15/18 at 10:48; Stop 07/15/18 at 22:47; Status DC Info (PHARMACY MONITORING -- do not chart) 1 each PRN DAILY PRN MC SEE COMMENTS ; Start 07/15/18 at 11:00; Status UNV Info (PHARMACY MONITORING -- do not chart) 1 each PRN DAILY PRN MC SEE COMMENTS ; Start 07/15/18 at 11:00 Vancomycin HCl 500 mg/Sodium Chloride 100 ml @ 100 mls/hr QTUTHSA IV Last administered on 07/17/18at 16:44; Start 07/17/18 at 16:00; Stop 07/18/18 at 15:41 ; Status DC Lactobacillus Rhamnosus (Culturelle) 1 cap BID PO Last administered on at 21:58; Start 07/16/18 at 21:00 Clotrimazole (Mycelex) 10 mg 5XDAY MM Last administered on 07/20/18at 06:19; Start 07/16/18 at 14:00 Ropinirole HCl (Requip) 3 mg DAILY PO Last administered on 07/19/18at 09:31; Start 07/17/18 at 09:00 Ropinirole HCl (Requip) 2 mg QHS PO Last administered on 07/19/18at 21:58; Start 07/16/18 at 21:00 Ropinirole HCl (Requip) 1 mg PRN QEVNG PRN PO RLS Last administered on at 14:56; Start 07/16/18 at 20:00 Vancomycin HCl (Vancomycin Oral Solution) 125 mg Q6HRS PO Last administered on 07/20/18at 06:19; Start 07/17/18 at 00:00 Sodium Chloride 1,000 ml @ 1,000 mls/hr Q1H PRN IV hypotension; Start 07/17/18 at 14:55; Stop 07/17/18 at 20:54; Status DC Sodium Chloride 1,000 ml @ 400 mls/hr Q2H30M PRN IV PATENCY; Start 07/17/18 at 14:55; Stop 07/18/18 at 02:54; Status DC Info (PHARMACY MONITORING -- do not chart) 1 each PRN DAILY PRN MC SEE COMMENTS ; Start 07/17/18 at 15:00; Stop 07/17/18 at 15:00; Status DC Info (PHARMACY MONITORING -- do not chart) 1 each PRN DAILY PRN MC SEE COMMENTS ; Start 07/17/18 at 15:00; Stop 07/17/18 at 15:00; Status DC Sodium Chloride 1,000 ml @ 1,000 mls/hr Q1H PRN IV hypotension; Start 07/18/18 at 11:30; Stop 07/18/18 at 17:29; Status DC Sodium Chloride 1,000 ml @ 400 mls/hr Q2H30M PRN IV PATENCY; Start 07/18/18 at 11:30; Stop 07/18/18 at 23:29; Status DC Info (PHARMACY MONITORING -- do not chart) 1 each PRN DAILY PRN MC SEE COMMENTS ; Start 07/18/18 at 12:30; Status UNV Info (PHARMACY MONITORING -- do not chart) 1 each PRN DAILY PRN MC SEE COMMENTS ; Start 07/18/18 at 12:30; Status UNV Vancomycin HCl 500 mg/Sodium Chloride 100 ml @ 100 mls/hr 1X ONCE IV Last administered on 07/18/18at 16:40; Start 07/18/18 at 16:00; Stop 07/18/18 at 16:59 ; Status DC Amino Acids/ Glycerin/ Electrolytes 1,000 ml @ 80 mls/hr [id number] IV Last administered on 07/20/18at 04:06; Start 07/19/18 at 11:45 Potassium Chloride (Klor-Con) 40 meq AFTRNOON PO Last administered on at 12:23; Start 07/19/18 at 13:00 Vancomycin HCl 500 mg/Sodium Chloride 100 ml @ 100 mls/hr 1X ONCE IV ; Start 07/21/18 at 16:00; Stop 07/21/18 at 16:59 Acetaminophen/ Hydrocodone Bitart (Lortab 5/325) 1 tab PRN Q6HRS PRN PO PAIN; Start 07/19/18 at 20:00 Active Scripts Active Reported Dialyvite Tablet (Folic Acid/Vitamin B Comp W-C) 1 Each Tablet 1 Each PO QPM QPM @ 1900 [hectorol] QTUTHSA [epogen] QTUTHSA Mirtazapine 15 Mg Tablet 1 Tab PO QHS Zoloft (Sertraline Hcl) 100 Mg Tablet 1 Tab PO DAILY Requip (Ropinirole Hcl) 1 Mg Tablet 3 Mg PO BID Mirtazapine 15 Mg Tablet 1 Tab PO QHS Megestrol Acetate 40 Mg Tablet 40 Mg PO BID Vitals/I & O Vital Sign - Last 24 Hours 07/19/18 07/19/18 07/19/18 07/19/18 11:00 15:00 19:00 19:40 Temp 97.9 98.1 97.8 97.9 98.1 97.8 Pulse 85 87 92 Resp 18 16 17 B/P (MAP) 108/66 (80) 145/86 (105) 159/80 (106) Pulse Ox 99 98 96 O2 Delivery Room Air Room Air Room Air Room Air 07/19/18 07/19/18 07/20/18 07/20/18 20:23 22:31 02:43 07:00 Temp 98.6 97.6 98.2 98.6 97.6 98.2 Pulse 93 94 85 Resp 16 19 16 B/P (MAP) 162/87 (112) 164/94 (117) 149/95 (113) Pulse Ox 94 96 98 O2 Delivery Room Air Room Air Room Air Room Air Intake and Output 07/19/18 07/19/18 07/20/18 15:00 23:00 07:00 Intake Total 50 ml Balance 50 ml Nutrition Consultation Dietary Evaluation: Recommendations by RD: Add supplement feedings Comments: continue nepro bid encourage po intake Expected Outcomes/Goals: po intake to improve to 50% of meals- goal ongoing Interpretation of weight loss: >1-2% in 1 week Malnutrition Findings: Food and Nutrition Intake (Sev: <50% est energy req 5days Body Fat Depletion (Non Severe: Mod to Severe Weight Status: Underweight SOFIYA MCCORMACK MD Jul 20, 2018 08:19
[2018-07-20] MEDS: rOPINIRole 1 MG TABLET. PO SCH ×3 (08:37→20:45)
[2018-07-20] MEDS: MEGESTROL 20 MG TABLET. PO SCH ×3 (08:37→20:45)
[2018-07-20] MEDS: SERTRALINE 50 MG TABLET. PO SCH ×2 (08:38→09:00)
[2018-07-20] MEDS: IPRATRPIUM/ALBUTEROL 0.5/2.5MG 3 ML NEBU. NEB SCH ×2 (08:44→18:58)
--- NOTE | 2018-07-20 08:54 | CARD ---
MR#: [id number] Date of Study: 07/18/2018 Ordering Physician: KISHOR FERRARI, Referring Physician: GREGORIO CONN, Tech: Kymberly Farias APPROVED REPORT EXAM: Two-dimensional and M-mode echocardiogram with Doppler and color Doppler. Other Information Quality : FairHR: 95bpm INDICATION Sepsis RISK FACTORS Hypertension 2D DIMENSIONS Left Atrium(2D)3.5 (1.6-4.0cm)IVSd1.1 (0.7-1.1cm) Aortic Root(2D)2.5 (2.0-3.7cm)LVDd3.6 (3.9-5.9cm) LVOT Diameter2.0 (1.8-2.4cm)PWd0.8 (0.7-1.1cm) LVDs2.7 (2.5-4.0cm)FS (%) 25.7 % SV28.1 mlLVEF(%)51.5 (>50%) Aortic Valve AoV Peak Blas.143.4cm/sAoV VTI25.4cm AO Peak GR.8.2mmHgLVOT VTI 18.58cm AO Mean GR.6mmHg Mitral Valve MV E Ymmcxtne62.9cm/sMV DECEL [id number] MV A Xhisxeds27.1cm/sE/A Ratio0.7 TDI Lateral E' P. V9.59cm/sMedial E' P. V10.75cm/s E/Lateral E'6.9E/Medial E'6.1 Tricuspid Valve RAP [id number] Peak Gr.38mmHg [id number] LEFT VENTRICLE The left ventricle is normal size. There is normal left ventricular wall thickness. The left ventricu lar systolic function is normal. The Ejection Fraction is 60%. There is normal LV segmental wall itzel on. Transmitral Doppler flow pattern is Grade I-abnormal relaxation pattern. RIGHT VENTRICLE The right ventricle is normal size. There is normal right ventricular wall thickness. The right ventr icular systolic function is normal. ATRIA The left atrium size is normal. The right atrium size is normal. The interatrial septum is intact wit h no evidence for an atrial septal defect or patent foramen ovale as noted on 2-D or Doppler imaging. AORTIC VALVE The aortic valve is not well visualized. Doppler and Color Flow revealed no significant aortic regurg itation. There is no significant aortic valvular stenosis. MITRAL VALVE The mitral valve is normal in structure and function. There is no evidence of mitral valve prolapse. There is no mitral valve stenosis. Doppler and Color-flow revealed trace mitral regurgitation. TRICUSPID VALVE The tricuspid valve is not well visualized. Doppler and Color Flow revealed trace tricuspid regurgita tion. There is no tricuspid valve stenosis. PULMONIC VALVE The pulmonic valve is not well visualized. Doppler and Color Flow revealed no pulmonic valvular regur gitation. GREAT VESSELS The aortic root is normal in size. The IVC was not visualized. PERICARDIAL EFFUSION There is no evidence of significant pericardial effusion. Critical Notification Critical Value: No <Conclusion> The left ventricular systolic function is normal. The Ejection Fraction is 60%. There is normal LV segmental wall motion. Transmitral Doppler flow pattern is Grade I-abnormal relaxation pattern. Trace mitral regurgitation. Trace tricuspid regurgitation. There is no evidence of significant pericardial effusion. Signed by : Simone De Paz, Electronically Approved : 07/20/2018 08:54:20
[2018-07-20] MEDS: LACTOBACILLUS RHAMNOSUS GG 1 CAPSULE. PO SCH ×2 (09:00→20:44)
--- NOTE | 2018-07-20 09:31 | NUR ---
pt would only take PO vanco this a.m. refused all other oral meds, including requip. refused breakfast as well. when physician rounded, pt told him she did not want to talk
--- NOTE | 2018-07-20 09:46 | PDOC ---
Infectious Disease Note Subjective Subjective Just wanting to sleep Not hungry - but in part not eating for fear of diarrhea No fevers reported ROS ROS o/w Vital Sign Vital Signs Vital Signs Date Time Temp Pulse Resp B/P (MAP) Pulse Ox O2 Delivery O2 Flow Rate FiO2 07/20/18 08:45 98 Room Air 07/20/18 07:00 98.2 85 16 149/95 (113) 98.2 Physical Exam PHYSICAL EXAM GENERAL: Lying down, sleeping but awakend HEENT: Pupils are equal and reactive, with normal conjunctivae. Oral cavity, pharynx - mild thrush - better + dentures NECK: Supple. LUNGS: Clear to auscultation. HEART: S1, S2. ABDOMEN: Soft, mild nontender. No guarding or rebound. EXTREMITIES: No clubbing, cyanosis or gross edema. SKIN: Warm to touch, without signs of rash. NEUROLOGIC: Arouses to name, responds to few questions Right chest hemodialysis catheter - out Labs Lab Laboratory Tests Test 07/20/18 04:50 White Blood Count 16.2 x10^3/uL (4.0-11.0) Red Blood Count 2.83 x10^6/uL (3.50-5.40) Hemoglobin 7.3 g/dL (12.0-15.5) Hematocrit 23.6 % (36.0-47.0) Mean Corpuscular Volume 84 fL (79-100) Mean Corpuscular Hemoglobin 26 pg (25-35) Mean Corpuscular Hemoglobin Concent 31 g/dL (31-37) Red Cell Distribution Width 17.9 % (11.5-14.5) Platelet Count 593 x10^3/uL (140-400) Sodium Level 136 mmol/L (136-145) Potassium Level 3.7 mmol/L (3.5-5.1) Chloride Level 101 mmol/L (98-107) Carbon Dioxide Level 27 mmol/L (21-32) Anion Gap 8 (6-14) Blood Urea Nitrogen 16 mg/dL (7-20) Creatinine 2.7 mg/dL (0.6-1.0) Estimated GFR (Cockcroft-Gault) 17.4 Glucose Level 99 mg/dL (70-99) Calcium Level 8.8 mg/dL (8.5-10.1) 2-D echo The left ventricular systolic function is normal. The Ejection Fraction is 60%. There is normal LV segmental wall motion. Transmitral Doppler flow pattern is Grade I-abnormal relaxation pattern. Trace mitral regurgitation. Trace tricuspid regurgitation. There is no evidence of significant pericardial effusion. Micro 218. BLD CULT RESULT 1 Final Comment Methicillin - resistant Staphylococcus aureus Based on resistance to oxacillin this isolate would be resistant to all currently available beta-lactam antimicrobial agents, with the exception of the newer cephalosporins with anti-MRSA activity, such as Ceftaroline ANTIMICROBIAL SUSCEPTIBILITY Final Comment S = Susceptible; I = Intermediate; R = Resistant P = Positive; N = Negative MICS are expressed in micrograms per mL Antibiotic RSLT#1 RSLT#2 RSLT#3 RSLT#4 Ciprofloxacin R>=8 Gentamicin S<=0.5 Levofloxacin R>=8 Linezolid S =2 Nitrofurantoin S<=16 Oxacillin R>=4 Penicillin R>=0.5 Rifampin S<=0.5 Tetracycline R>=16 Trimethoprim/Sulfa S<=10 Vancomycin S =1 07/18. BLOOD CULTURE Final GRAM POSITIVE COCCI IN CLUSTERS SEEN IN 1 OF 4 BOTTLES; 2 SETS WERE DRAWN; RESULTS WERE CALLED TO ANTON SAM ON 5S AT 0827; 07/19/18 BY Mengero. THE BLOOD CULTURES HAVE BEEN SENT TO [facility] FOR FURTHER WORKUP. AMMENDED REPORT: GRAM POSITIVE COCCI IN CLUSTERS SEEN IN 2 OF 4 BOTTLES; 2 SETS WERE DRAWN; RESULTS WERE CALLED TO ANTON SAM ON 5S AT 0759 07/20/18 BY Mengero AT. THE BLOOD CULTURES HAVE BEEN SENT TO [facility] FOR FURTHER WORKUP. THIS IS THE SECOND BOTTLE OF THE SAME SET. * This is a corrected result. * A prior result that was reported as final has been changed. Objective Assessment MRSA (R tetra) bacteremia POA 07/14 - repeat BC 07/18 + GPC - 2D echo neg vegetation -s/p tunneled HDC line removal on 07/18. C. difficile from 07/16 positive Thrush - better Anemia - S/p PRBCs Leukocytosis - better CKD on HD Severe Protein malnutrition Failure to thrive. I asked if she wanted to cont HD she said "I guess so" and I encouraged her to eat then Plan Plan of Care Cont IV/po Vanc Probiotics Repeat BC today May need [facility]ON IR consult for HD cath replacement 225 am labs f/u cultures Contact isolation Attending Co-Sign Attending Co-Sign The patient was seen and interviewed as well as examined at the bedside. The chart was reviewed. The case was discussed. Agree with the plan of care. TEVIN HOYOS APRN Jul 20, 2018 09:46 KISHOR FERRARI MD Jul 20, 2018 11:39
[2018-07-20 11:00] VITALS: BP 165/90
[2018-07-20] MEDS: POTASSIUM CHLORIDE 20 MEQ TABLET.ER. PO SCH (13:00)
--- NOTE | 2018-07-20 14:44 | NUR ---
pt continues to refuse medications. refused PT again today as well
[2018-07-20 15:00] VITALS: BP 134/92
[2018-07-20] MEDS: FOLIC/VIT B COMP W-C (RENAL) TABLET. PO SCH (17:42)
[2018-07-20 19:00] VITALS: BP 164/94
[2018-07-20] MEDS: MIRTAZAPINE 15 MG TABLET PO SCH (20:45)
[2018-07-20 23:00] VITALS: BP 139/90
[2018-07-21 03:00] VITALS: BP 169/110
[2018-07-21 04:33] LABS: BASO # 0.1 x10^3/uL (0.0-0.2); BASO % 1 % (0-3); EOS # 0.2 x10^3/uL (0.0-0.7); EOS % 2 % (0-3); HEMATOCRIT 22.8 % (36.0-47.0); HEMOGLOBIN 7.4 g/dL (12.0-15.5); LYMPH # 1.6 x10^3/uL (1.0-4.8); LYMPH % 11 % (24-48); MEAN CORPUSCULAR HEMOGLOBIN 27 pg (25-35); MEAN CORPUSCULAR HGB CONC 32 g/dL (31-37); MEAN CORPUSCULAR VOLUME 82 fL (79-100); MONO # 0.7 x10^3/uL (0.0-1.1); MONO % 5 % (0-9); NEUT # 12.8 x10^3uL (1.8-7.7); NEUT % 83 % (31-73); PLATELET COUNT 619 x10^3/uL (140-400); RED BLOOD COUNT 2.79 x10^6/uL (3.50-5.40); RED CELL DISTRIBUTION WIDTH 17.5 % (11.5-14.5); WHITE BLOOD COUNT 15.4 x10^3/uL (4.0-11.0)
[2018-07-21] MEDS: VANCOMYCIN 125 MG/2.5 ML ORAL SOLUTION. PO SCH ×5 (05:09→23:58)
[2018-07-21] MEDS: CLOTRIMAZOLE 10 MG TROCHE. MM SCH ×5 (05:09→22:35)
[2018-07-21 07:00] VITALS: BP 102/53
[2018-07-21] MEDS: IPRATRPIUM/ALBUTEROL 0.5/2.5MG 3 ML NEBU. NEB SCH ×2 (07:22→19:30)
[2018-07-21 10:42] VITALS: BP 105/50
--- NOTE | 2018-07-21 10:51 | PDOC ---
Infectious Disease Note Subjective Subjective awake, feeling better says ROS ROS no n/v/d/fever Vital Sign Vital Signs Vital Signs Date Time Temp Pulse Resp B/P (MAP) Pulse Ox O2 Delivery O2 Flow Rate FiO2 07/21/18 07:22 Room Air 07/21/18 07:00 97.9 88 18 102/53 (69) 100 97.9 Physical Exam PHYSICAL EXAM GENERAL: Lying down, awake and comfortable HEENT: Pupils are equal and reactive, with normal conjunctivae. Oral cavity, pharynx - mild thrush - better + dentures NECK: Supple. LUNGS: Clear to auscultation. HEART: S1, S2. ABDOMEN: Soft, mild nontender. No guarding or rebound. EXTREMITIES: No clubbing, cyanosis or gross edema. SKIN: Warm to touch, without signs of rash. NEUROLOGIC: A and O x 3 Right chest hemodialysis catheter - out Labs Lab Laboratory Tests Test 07/21/18 03:50 White Blood Count 15.4 x10^3/uL (4.0-11.0) Red Blood Count 2.79 x10^6/uL (3.50-5.40) Hemoglobin 7.4 g/dL (12.0-15.5) Hematocrit 22.8 % (36.0-47.0) Mean Corpuscular Volume 82 fL (79-100) Mean Corpuscular Hemoglobin 27 pg (25-35) Mean Corpuscular Hemoglobin Concent 32 g/dL (31-37) Red Cell Distribution Width 17.5 % (11.5-14.5) Platelet Count 619 x10^3/uL (140-400) Neutrophils (%) (Auto) 83 % (31-73) Lymphocytes (%) (Auto) 11 % (24-48) Monocytes (%) (Auto) 5 % (0-9) Eosinophils (%) (Auto) 2 % (0-3) Basophils (%) (Auto) 1 % (0-3) Neutrophils # (Auto) 12.8 x10^3uL (1.8-7.7) Lymphocytes # (Auto) 1.6 x10^3/uL (1.0-4.8) Monocytes # (Auto) 0.7 x10^3/uL (0.0-1.1) Eosinophils # (Auto) 0.2 x10^3/uL (0.0-0.7) Basophils # (Auto) 0.1 x10^3/uL (0.0-0.2) Objective Assessment MRSA (R tetra) bacteremia POA 07/14 - repeat BC 07/18 + GPC - 2D echo neg vegetation -s/p tunneled HDC line removal on 07/18. C. difficile from 07/16 positive Thrush - better Anemia - S/p PRBCs Leukocytosis - better CKD on HD Severe Protein malnutrition Failure to thrive. I asked if she wanted to cont HD she said "I guess so" and I encouraged her to eat then Plan Plan Plan of Care Cont IV/po Vanc Probiotics IR consult for HD cath replacement 07/21 am labs f/u cultures Contact isolation most recent BC likely to be contaminant, since 07/18 neg EUGENIA GOLD MD Jul 21, 2018 10:51
--- NOTE | 2018-07-21 11:52 | PDOC2 ---
PALLIATIVE CARE Palliative Care Note Palliative Care Consult requested by Dr. Cardoso to address goals of care. Patient refusing dialysis this weekend. Patient alert. States she want to continue dialysis. Spoke with Dr. Oneill and states the same. Spoke with nephew.-- [place] She has been going to dialysis while at home. Medical Assessment per medical record; C. Diff diarrhea - present on admission, now on oral vanco Anemia, status post packed red blood cells Thrush - treat Leukocytosis - ESRD - on hemodialysis. Severe protein malnutrition Patient wanting to continue with dialysis. PC will sign off. MARTIN SIMS Jul 21, 2018 11:52
[2018-07-21] MEDS ORDERED: IV NORMAL SALINE 1000ML BAG 1,000 ML IV PRN ×2 (12:29)
[2018-07-21] MEDS ORDERED: 0.9 % SODIUM CHLORIDE 10 ML DISP.SYRIN. IV PRN ×2 (12:30)
[2018-07-21] MEDS ORDERED: DIALYSIS PATIENT. MC PRN ×2 (12:30)
--- NOTE | 2018-07-21 13:08 | PDOC ---
Renal-Progress Notes Subjective Notes Notes NONE History of Present Illness Hx of present illness STABLE Vitals Vitals Vital Signs Date Time Temp Pulse Resp B/P (MAP) Pulse Ox O2 Delivery O2 Flow Rate FiO2 07/21/18 10:42 97.8 86 18 105/50 (68) 100 Room Air 97.8 Weight Weight [ ] I.O. Intake and Output Intake and Output 07/21/18 06:59 Intake Total 1010 ml Output Total 2 ml Balance 1008 ml Intake Oral 310 ml IV Total 700 ml Output Urine Total 2 ml # Bowel Movements 1 Labs Labs Laboratory Tests Test 07/21/18 03:50 White Blood Count 15.4 x10^3/uL (4.0-11.0) Red Blood Count 2.79 x10^6/uL (3.50-5.40) Hemoglobin 7.4 g/dL (12.0-15.5) Hematocrit 22.8 % (36.0-47.0) Mean Corpuscular Volume 82 fL (79-100) Mean Corpuscular Hemoglobin 27 pg (25-35) Mean Corpuscular Hemoglobin Concent 32 g/dL (31-37) Red Cell Distribution Width 17.5 % (11.5-14.5) Platelet Count 619 x10^3/uL (140-400) Neutrophils (%) (Auto) 83 % (31-73) Lymphocytes (%) (Auto) 11 % (24-48) Monocytes (%) (Auto) 5 % (0-9) Eosinophils (%) (Auto) 2 % (0-3) Basophils (%) (Auto) 1 % (0-3) Neutrophils # (Auto) 12.8 x10^3uL (1.8-7.7) Lymphocytes # (Auto) 1.6 x10^3/uL (1.0-4.8) Monocytes # (Auto) 0.7 x10^3/uL (0.0-1.1) Eosinophils # (Auto) 0.2 x10^3/uL (0.0-0.7) Basophils # (Auto) 0.1 x10^3/uL (0.0-0.2) Micro Micro Microbiology 07/20/18 Blood Culture - Final, Complete 07/14/18 Urine Culture - Final, Complete 07/14/18 Urine Culture Result 1 (MARYANN) - Final, Complete Review of Systems Constitutional: yes: alert, oriented Ears/Nose/Throat: Yes: no symptom reported Eyes: Yes: no symptom reported Pulmonary: Yes no symptom reported Cardiovascular: Yes no symptom reported Gastrointestional: Yes: no symptom reported Genitourinary: Yes: no symptom reported Musculoskeletal: Yes: no symptom reported Skin: Yes no symptom reported Psychiatric/Neurological: Yes: no symptom reported Endocrine: Yes: no symptom reported Hematologic/Lymphatic: Yes: no symptom reported Physical Exam General Appearance: no apparent distress Skin: warm Respiratory: decreased breath sounds Abdomen: soft, bowel sounds present Genitourinary: bladder flat Extremities: pulses present Neurology: alert Assessment Assessment IMP ESRD ANEMIA BACTEREMIA S/P DIALYSIS CATHETER REMOVAL ON SATURDAY PLAN ANTIBIOTICS NEW DIALYSIS LINE TODAY HD TODAY UF TO DW WILL FOLLOW DEIDRA MINAYA MD Jul 21, 2018 13:08
--- NOTE | 2018-07-21 13:23 | PDOC ---
PROGRESS NOTES Chief Complaint Chief Complaint Acute Anemia Leukocytosis - likely UTI Vascular dementia HTN Anxiety Depression End-stage renal disease on dialysis Saturday, Saturday, (new dx 2018) SEPSIS/ BACTEREMIA GRAM POSITIVE COCCI IN CLUSTERS, SUGGESTIVE OF STAPH, IN 4 OF 5 BOTTLES, 3 SETS DRAWN ON 07/20/18. ALL 3 SETS ARE POSITIVE. 07/21 NEEDS NEW DIALYSIS CATH History of Present Illness History of Present Illness 72 yo f w/ PMHx CVA with vascular dementia, HTN, anxiety, depression, end-stage renal disease on dialysis Saturday, Saturday, (new dx 2018), last dialyzed on Saturday who p/w fever, decreased appetite, fever, decreased energy/ weakness, symptoms began 3 days ago. Found with Hb of 5.6 in ED, transfused PRBC to 7.5. She was noted with loose stools as well. She has history dementia but she is alert to person only, but is able to carry on a conversation and give some health history. She does not refuse dialysis every day. She was seen here this past January 2018 and May 2018 and sent home with [employer] [facility] She has a DPOA, Ivy the nephew has been texting who has been informed of hospital admission. 07/15: Seen on dialysis today. She has some chills with this. Notably, lab called about 3/4 bottles positive on blood culture for GPC in clusters. 07/16: Feeling terrible today. Has diarrhea x2 POSITIVE FOR C. DIFFICILE. She has bilateral LQ pain. Started on oral vancomycin and continued on IV Vancomycin 07/17: Still with poor PO intake 07/18: HD catheter pulled. Culture looks like MRSA 07/19: Still not eating, started PPN. Still with repeat blood cultures 1/4 bottles positive 07/21 DECISION FOR PALLIATIVE CARE Needed GRAM POSITIVE COCCI IN CLUSTERS, SUGGESTIVE OF STAPH, IN 4 OF 5 BOTTLES, 3 SETS DRAWN ON 07/20/18. ALL 3 SETS ARE POSITIVE. Still with some loose stools. Positive 2/4 repeat blood cultures after line was pulled. Denies SOB and CP. She does have some catheter site pain where it was pulled. A/P: Likely MRSA bacteremia, present on admission on 07/14/2018 - consulted ID, owen. Still with positive cultures, will need to wait to replace cath until these are negative. consult palliative care DONE TODAY Added prn pain medications C. Diff diarrhea - oral vanco Anemia, status post packed red blood cells - will monitor Thrush - treat Leukocytosis - bacteremia / SEPSIS, poa. ESRD - on hemodialysis. Nephrology consulted. May need to hold of on dialysis until at least Saturday as she continues to have blood cultures positive Severe protein malnutrition - likely 2/2 her dementia and currently infectious process 07/21 Cont inpatient. Consult palliative care, decided she wants to continue dialysis, per my record review pt remains at high risk of complications, MORBIDITY , due to bacteremia/ sepsis, ESRD Vitals Vitals Vital Signs Date Time Temp Pulse Resp B/P (MAP) Pulse Ox O2 Delivery O2 Flow Rate FiO2 07/21/18 10:42 97.8 86 18 105/50 (68) 100 Room Air 97.8 Physical Exam Physical Exam GENERAL: Lying down, awake and comfortable HEENT: Pupils are equal and reactive, with normal conjunctivae. Oral cavity, pharynx - mild thrush - better + dentures NECK: Supple. LUNGS: Clear to auscultation. HEART: S1, S2. ABDOMEN: Soft, mild nontender. No guarding or rebound. EXTREMITIES: No clubbing, cyanosis or gross edema. SKIN: Warm to touch, without signs of rash. NEUROLOGIC: A and O x 3 Right chest hemodialysis catheter - out General: Alert, Cooperative, No acute distress, Other (poorly oriented) Lungs: Clear Abdomen: Normal bowel sounds, Soft Extremities: No clubbing, No cyanosis, Normal pulses Skin: No rashes, No significant lesion Labs LABS PATIENT: TYLER GUTIERREZ ACCT: [id number] LOC: [address] [place] [address] U : [id number] AGE/SX: 72/F ROOM: 554 REG : 07/14/[address]: GREGORIO CONN MD : [id number] BED: 1 DIS : STATUS: ADM IN TLOC: SPEC #: [id number] LEXUS: 07/20/18 STATUS: ELENO REQ #: [id number] RECD: 07/20/18 [facility] DR: KISHOR FERRARI MD SOURCE: BLOOD ENTR: 07/20/18-[address] [facility] [address]: MANNY LAURENT MD [facility]: GREGORIO CONN MD, VENU S MD ORDERED: BCULT Procedure Result BLOOD CULTURE Final GRAM POSITIVE COCCI IN CLUSTERS, SUGGESTIVE OF STAPH, IN 4 OF 5 BOTTLES, 3 SETS DRAWN ON 07/20/18. ALL 3 SETS ARE POSITIVE. CALLED TO CATALINA MONTEMAYOR RN ON 5S AT 14:20 ON 07/21/18 DW MT SENT TO [facility] FOR FURTHER WORKUP. Laboratory Tests Test 07/21/18 03:50 White Blood Count 15.4 x10^3/uL (4.0-11.0) Red Blood Count 2.79 x10^6/uL (3.50-5.40) Hemoglobin 7.4 g/dL (12.0-15.5) Hematocrit 22.8 % (36.0-47.0) Mean Corpuscular Volume 82 fL (79-100) Mean Corpuscular Hemoglobin 27 pg (25-35) Mean Corpuscular Hemoglobin Concent 32 g/dL (31-37) Red Cell Distribution Width 17.5 % (11.5-14.5) Platelet Count 619 x10^3/uL (140-400) Neutrophils (%) (Auto) 83 % (31-73) Lymphocytes (%) (Auto) 11 % (24-48) Monocytes (%) (Auto) 5 % (0-9) Eosinophils (%) (Auto) 2 % (0-3) Basophils (%) (Auto) 1 % (0-3) Neutrophils # (Auto) 12.8 x10^3uL (1.8-7.7) Lymphocytes # (Auto) 1.6 x10^3/uL (1.0-4.8) Monocytes # (Auto) 0.7 x10^3/uL (0.0-1.1) Eosinophils # (Auto) 0.2 x10^3/uL (0.0-0.7) Basophils # (Auto) 0.1 x10^3/uL (0.0-0.2) Assessment and Plan Assessmemt and Plan Problems Medical Problems: (1) End stage renal disease Status: Acute (2) Generalized weakness Status: Acute Comment Review of Relevant I have reviewed the following items linda (where applicable) has been applied. Labs Laboratory Tests Test 07/20/18 04:50 07/21/18 03:50 White Blood Count 16.2 x10^3/uL (4.0-11.0) 15.4 x10^3/uL (4.0-11.0) Red Blood Count 2.83 x10^6/uL (3.50-5.40) 2.79 x10^6/uL (3.50-5.40) Hemoglobin 7.3 g/dL (12.0-15.5) 7.4 g/dL (12.0-15.5) Hematocrit 23.6 % (36.0-47.0) 22.8 % (36.0-47.0) Mean Corpuscular Volume 84 fL (79-100) 82 fL (79-100) Mean Corpuscular Hemoglobin 26 pg (25-35) 27 pg (25-35) Mean Corpuscular Hemoglobin Concent 31 g/dL (31-37) 32 g/dL (31-37) Red Cell Distribution Width 17.9 % (11.5-14.5) 17.5 % (11.5-14.5) Platelet Count 593 x10^3/uL (140-400) 619 x10^3/uL (140-400) Sodium Level 136 mmol/L (136-145) Potassium Level 3.7 mmol/L (3.5-5.1) Chloride Level 101 mmol/L (98-107) Carbon Dioxide Level 27 mmol/L (21-32) Anion Gap 8 (6-14) Blood Urea Nitrogen 16 mg/dL (7-20) Creatinine 2.7 mg/dL (0.6-1.0) Estimated GFR (Cockcroft-Gault) 17.4 Glucose Level 99 mg/dL (70-99) Calcium Level 8.8 mg/dL (8.5-10.1) Neutrophils (%) (Auto) 83 % (31-73) Lymphocytes (%) (Auto) 11 % (24-48) Monocytes (%) (Auto) 5 % (0-9) Eosinophils (%) (Auto) 2 % (0-3) Basophils (%) (Auto) 1 % (0-3) Neutrophils # (Auto) 12.8 x10^3uL (1.8-7.7) Lymphocytes # (Auto) 1.6 x10^3/uL (1.0-4.8) Monocytes # (Auto) 0.7 x10^3/uL (0.0-1.1) Eosinophils # (Auto) 0.2 x10^3/uL (0.0-0.7) Basophils # (Auto) 0.1 x10^3/uL (0.0-0.2) Laboratory Tests Test 07/21/18 03:50 White Blood Count 15.4 x10^3/uL (4.0-11.0) Red Blood Count 2.79 x10^6/uL (3.50-5.40) Hemoglobin 7.4 g/dL (12.0-15.5) Hematocrit 22.8 % (36.0-47.0) Mean Corpuscular Volume 82 fL (79-100) Mean Corpuscular Hemoglobin 27 pg (25-35) Mean Corpuscular Hemoglobin Concent 32 g/dL (31-37) Red Cell Distribution Width 17.5 % (11.5-14.5) Platelet Count 619 x10^3/uL (140-400) Neutrophils (%) (Auto) 83 % (31-73) Lymphocytes (%) (Auto) 11 % (24-48) Monocytes (%) (Auto) 5 % (0-9) Eosinophils (%) (Auto) 2 % (0-3) Basophils (%) (Auto) 1 % (0-3) Neutrophils # (Auto) 12.8 x10^3uL (1.8-7.7) Lymphocytes # (Auto) 1.6 x10^3/uL (1.0-4.8) Monocytes # (Auto) 0.7 x10^3/uL (0.0-1.1) Eosinophils # (Auto) 0.2 x10^3/uL (0.0-0.7) Basophils # (Auto) 0.1 x10^3/uL (0.0-0.2) Microbiology 07/20/18 Blood Culture - Preliminary, Resulted NO GROWTH AFTER 1 DAY 07/14/18 Urine Culture - Final, Complete 07/14/18 Urine Culture Result 1 (MARYANN) - Final, Complete Medications Current Medications Piperacillin Sod/ Tazobactam Sod 4.5 gm/Sodium Chloride 100 ml @ 200 mls/hr 1X ONCE IV Last administered on 07/14/18at 15:58; Start 07/14/18 at 15:00; Stop 07/14/18 at 15:29; Status DC Vancomycin HCl (Vanco Per Pharmacy) 1 each PRN DAILY PRN MC SEE COMMENTS Last administered on 07/18/18at 15:52; Start 07/14/18 at 14:45 Vancomycin HCl 1.25 gm/Sodium Chloride 250 ml @ 166.667 mls/hr 1X ONCE IV Last administered on 07/14/18at 18:10; Start 07/14/18 at 15:00; Stop 07/14/18 at 16:29; Status DC Ondansetron HCl (Zofran) 4 mg PRN Q8HRS PRN IV NAUSEA/VOMITING; Start 07/14/18 at 17:15; Stop 07/15/18 at 17:14; Status DC Morphine Sulfate (Morphine Sulfate) 2 mg PRN Q2HR PRN IV PAIN; Start 07/14/18 at 17:15; Stop 07/15/18 at 17:14; Status DC Acetaminophen (Tylenol) 650 mg PRN Q4HRS PRN PO FEVER; Start 07/14/18 at 17:15 ; Stop 07/15/18 at 17:14; Status DC Vancomycin HCl (Vancomycin Random Level) 1 each 1X ONCE MC ; Start 07/15/18 at 06:00; Stop 07/15/18 at 06:01; Status DC Vitamin B Complex/ Vitamin C (Dinorah-Ralph) 1 tab QPM PO Last administered on 07/18at 18:27; Start 07/15/18 at 18:00 Megestrol Acetate (Megace) 40 mg BID PO Last administered on 07/19/18 21:59; Start 07/15/18 at 09:00 Mirtazapine (Remeron) 15 mg QHS PO Last administered on 07/19/18 21:58; Start 07/14/18 at 22:00 Non-Formulary Medication (Mirtazapine ) 1 tab QHS PO ; Start 07/15/18 at 21:00; Status UNV Ropinirole HCl (Requip) 3 mg BID PO Last administered on 07/16/18at 18:21; Start 07/14/18 at 22:00; Stop 07/16/18 at 19:54; Status DC Sertraline HCl (Zoloft) 100 mg DAILY PO Last administered on 07/19/18 09:31; Start 07/15/18 at 09:00 Phytonadione (Mephyton Oral Soln) 5 mg 1X ONCE PO Last administered on 22:14; Start 07/14/18 at 22:00; Stop 07/14/18 at 22:01; Status DC Vitamin B Complex (Folbic Tablet) 1 tab DAILY PO Last administered on 17:24; Start 07/15/18 at 09:00 Albuterol/ Ipratropium (Duoneb) 3 ml RTBID NEB Last administered on 2/25/19at 07:22; Start 07/15/18 at 08:00 Sodium Chloride 1,000 ml @ 1,000 mls/hr Q1H PRN IV hypotension; Start 07/15/18 at 10:48; Stop 07/15/18 at 16:47; Status DC Albumin Human 200 ml @ 200 mls/hr 1X PRN PRN IV Hypotension; Start 07/15/18 at 11:00; Stop 07/15/18 at 16:59; Status DC Sodium Chloride 1,000 ml @ 400 mls/hr Q2H30M PRN IV PATENCY; Start 07/15/18 at 10:48; Stop 07/15/18 at 22:47; Status DC Info (PHARMACY MONITORING -- do not chart) 1 each PRN DAILY PRN MC SEE COMMENTS ; Start 07/15/18 at 11:00; Status UNV Info (PHARMACY MONITORING -- do not chart) 1 each PRN DAILY PRN MC SEE COMMENTS ; Start 07/15/18 at 11:00 Vancomycin HCl 500 mg/Sodium Chloride 100 ml @ 100 mls/hr QTUTHSA IV Last administered on 07/17/18at 16:44; Start 07/17/18 at 16:00; Stop 07/18/18 at 15:41 ; Status DC Lactobacillus Rhamnosus (Culturelle) 1 cap BID PO Last administered on 21:58; Start 07/16/18 at 21:00 Clotrimazole (Mycelex) 10 mg 5XDAY MM Last administered on 07/20/18 06:19; Start 07/16/18 at 14:00 Ropinirole HCl (Requip) 3 mg DAILY PO Last administered on 07/19/18at 09:31; Start 07/17/18 at 09:00 Ropinirole HCl (Requip) 2 mg QHS PO Last administered on 07/19/18 21:58; Start 07/16/18 at 21:00 Ropinirole HCl (Requip) 1 mg PRN QEVNG PRN PO RLS Last administered on 14:56; Start 07/16/18 at 20:00 Vancomycin HCl (Vancomycin Oral Solution) 125 mg Q6HRS PO Last administered on 07/20/18 17:12; Start 07/17/18 at 00:00 Sodium Chloride 1,000 ml @ 1,000 mls/hr Q1H PRN IV hypotension; Start 07/17/18 at 14:55; Stop 07/17/18 at 20:54; Status DC Sodium Chloride 1,000 ml @ 400 mls/hr Q2H30M PRN IV PATENCY; Start 07/17/18 at 14:55; Stop 07/18/18 at 02:54; Status DC Info (PHARMACY MONITORING -- do not chart) 1 each PRN DAILY PRN MC SEE COMMENTS ; Start 07/17/18 at 15:00; Stop 07/17/18 at 15:00; Status DC Info (PHARMACY MONITORING -- do not chart) 1 each PRN DAILY PRN MC SEE COMMENTS ; Start 07/17/18 at 15:00; Stop 07/17/18 at 15:00; Status DC Sodium Chloride 1,000 ml @ 1,000 mls/hr Q1H PRN IV hypotension; Start 07/18/18 at 11:30; Stop 07/18/18 at 17:29; Status DC Sodium Chloride 1,000 ml @ 400 mls/hr Q2H30M PRN IV PATENCY; Start 07/18/18 at 11:30; Stop 07/18/18 at 23:29; Status DC Info (PHARMACY MONITORING -- do not chart) 1 each PRN DAILY PRN MC SEE COMMENTS ; Start 07/18/18 at 12:30; Status UNV Info (PHARMACY MONITORING -- do not chart) 1 each PRN DAILY PRN MC SEE COMMENTS ; Start 07/18/18 at 12:30; Status UNV Vancomycin HCl 500 mg/Sodium Chloride 100 ml @ 100 mls/hr 1X ONCE IV Last administered on 07/18/18at 16:40; Start 07/18/18 at 16:00; Stop 07/18/18 at 16:59 ; Status DC Amino Acids/ Glycerin/ Electrolytes 1,000 ml @ 80 mls/hr [id number] IV Last administered on 07/20/18at 17:12; Start 07/19/18 at 11:45 Potassium Chloride (Klor-Con) 40 meq AFTRNOON PO Last administered on at 12:23; Start 07/19/18 at 13:00 Vancomycin HCl 500 mg/Sodium Chloride 100 ml @ 100 mls/hr 1X ONCE IV ; Start 07/21/18 at 16:00; Stop 07/21/18 at 16:59 Acetaminophen/ Hydrocodone Bitart (Lortab 5/325) 1 tab PRN Q6HRS PRN PO PAIN; Start 07/19/18 at 20:00 Sodium Chloride 1,000 ml @ 1,000 mls/hr Q1H PRN IV hypotension; Start 07/21/18 at 12:29; Stop 07/21/18 at 18:28 Sodium Chloride (Normal Saline Flush) 10 ml 1X PRN PRN IV AP catheter pack; Start 07/21/18 at 12:30; Stop 07/22/18 at 12:29 Sodium Chloride (Normal Saline Flush) 10 ml 1X PRN PRN IV CAN PILER catheter pack; Start 07/21/18 at 12:30; Stop 07/22/18 at 12:29 Sodium Chloride 1,000 ml @ 400 mls/hr Q2H30M PRN IV PATENCY; Start 07/21/18 at 12:29; Stop 07/22/18 at 00:28 Info (PHARMACY MONITORING -- do not chart) 1 each PRN DAILY PRN MC SEE COMMENTS ; Start 07/21/18 at 12:30; Status UNV Info (PHARMACY MONITORING -- do not chart) 1 each PRN DAILY PRN MC SEE COMMENTS ; Start 07/21/18 at 12:30 Active Scripts Active Reported Dialyvite Tablet (Folic Acid/Vitamin B Comp W-C) 1 Each Tablet 1 Each PO QPM QPM @ 1900 [hectorol] QTUTHSA [epogen] QTUTHSA Mirtazapine 15 Mg Tablet 1 Tab PO QHS Zoloft (Sertraline Hcl) 100 Mg Tablet 1 Tab PO DAILY Requip (Ropinirole Hcl) 1 Mg Tablet 3 Mg PO BID Mirtazapine 15 Mg Tablet 1 Tab PO QHS Megestrol Acetate 40 Mg Tablet 40 Mg PO BID Vitals/I & O Vital Sign - Last 24 Hours 07/20/18 07/20/18 07/20/18 07/20/18 15:00 18:58 19:00 19:51 Temp 99.0 97.9 99.0 97.9 Pulse 91 93 Resp 20 20 B/P (MAP) 134/92 (106) 164/94 (117) Pulse Ox 98 97 O2 Delivery Room Air Room Air Room Air Room Air 2/24/07/21/18 07/21/18 07/21/18 23:00 03:00 07:00 07:22 Temp 98.4 97.5 97.9 98.4 97.5 97.9 Pulse 93 88 88 Resp 20 20 18 B/P (MAP) 139/90 (106) 169/110 (129) 102/53 (69) Pulse Ox 100 98 100 O2 Delivery Room Air Room Air Room Air Room Air 07/21/18 07/21/18 08:00 10:42 Temp 97.8 97.8 Pulse 86 Resp 18 B/P (MAP) 105/50 (68) Pulse Ox 100 O2 Delivery Room Air Room Air Intake and Output 07/20/18 07/20/18 07/21/18 14:59 22:59 06:59 Intake Total 0 ml 50 ml 960 ml Output Total 2 ml Balance 0 ml 50 ml 958 ml Nutrition Consultation Dietary Evaluation: Recommendations by RD: Add supplement feedings Comments: continue nepro bid encourage po intake Expected Outcomes/Goals: po intake to improve to 50% of meals- goal ongoing Interpretation of weight loss: >1-2% in 1 week Malnutrition Findings: Food and Nutrition Intake (Sev: <50% est energy req 5days Body Fat Depletion (Non Severe: Mod to Severe Weight Status: Underweight LIBERTY MUNGUIA MD Jul 21, 2018 13:23
[2018-07-21] MEDS: VANCOMYCIN PER PHARMACY MC PRN (14:07)
[2018-07-21 15:03] VITALS: BP 110/52
[2018-07-21] MEDS ORDERED: VANCOMYCIN 750 MG in IV NORMAL SALINE 250ML 250 ML IV ONE (16:00)
[2018-07-21] MEDS ORDERED: VANCOMYCIN 500 MG in IV NORMAL SALINE 100ML 100 ML IV ONE ×2 (16:00→18:30)
[2018-07-21] MEDS: AMINO AC 3%/ELECTROLYTE/GLYCER 1,000 ML IV SCH (17:35)
[2018-07-21] MEDS: MEGESTROL 20 MG TABLET. PO SCH ×2 (17:36→22:34)
[2018-07-21] MEDS: SERTRALINE 50 MG TABLET. PO SCH (17:36)
[2018-07-21] MEDS: LACTOBACILLUS RHAMNOSUS GG 1 CAPSULE. PO SCH ×2 (17:36→22:35)
[2018-07-21] MEDS: rOPINIRole 1 MG TABLET. PO SCH ×2 (17:36→22:35)
[2018-07-21] MEDS: VITAMIN B12,B9,B6 COMPLEX 1 TABLET. PO SCH (17:37)
[2018-07-21] MEDS: POTASSIUM CHLORIDE 20 MEQ TABLET.ER. PO SCH (17:38)
[2018-07-21] MEDS: FOLIC/VIT B COMP W-C (RENAL) TABLET. PO SCH (18:00)
[2018-07-21 19:00] VITALS: BP 104/50
[2018-07-21 22:30] VITALS: BP 134/80
[2018-07-21] MEDS: MIRTAZAPINE 15 MG TABLET PO SCH (22:35)
[2018-07-22] VITALS (7 sets, daily range): BP systolic 123–155; BP diastolic 61–95
[2018-07-22 05:17] LABS: BASO # 0.1 x10^3/uL (0.0-0.2); BASO % 1 % (0-3); EOS # 0.2 x10^3/uL (0.0-0.7); EOS % 1 % (0-3); HEMATOCRIT 21.8 % (36.0-47.0); LYMPH # 1.8 x10^3/uL (1.0-4.8); LYMPH % 10 % (24-48); MEAN CORPUSCULAR HEMOGLOBIN 26 pg (25-35); MEAN CORPUSCULAR HGB CONC 32 g/dL (31-37); MEAN CORPUSCULAR VOLUME 82 fL (79-100); MONO # 0.8 x10^3/uL (0.0-1.1); MONO % 5 % (0-9); NEUT # 15.9 x10^3uL (1.8-7.7); NEUT % 84 % (31-73); PLATELET COUNT 681 x10^3/uL (140-400); RED BLOOD COUNT 2.66 x10^6/uL (3.50-5.40); RED CELL DISTRIBUTION WIDTH 17.7 % (11.5-14.5); WHITE BLOOD COUNT 18.9 x10^3/uL (4.0-11.0)
[2018-07-22 05:20] LABS: ALBUMIN 1.2 g/dL (3.4-5.0); CALCIUM 9.4 mg/dL (8.5-10.1); CREATININE 3.2 mg/dL (0.6-1.0); GFR 14.3; PHOSPHORUS 2.1 mg/dL (2.6-4.7); POTASSIUM 5.9 mmol/L (3.5-5.1)
[2018-07-22 05:22] LABS: HEMOGLOBIN 6.9 g/dL (12.0-15.5)
[2018-07-22] MEDS: VANCOMYCIN 125 MG/2.5 ML ORAL SOLUTION. PO SCH ×3 (05:24→18:41)
[2018-07-22] MEDS: CLOTRIMAZOLE 10 MG TROCHE. MM SCH ×5 (05:24→21:49)
[2018-07-22] MEDS: IPRATRPIUM/ALBUTEROL 0.5/2.5MG 3 ML NEBU. NEB SCH ×2 (08:00→20:16)
[2018-07-22] MEDS: LACTOBACILLUS RHAMNOSUS GG 1 CAPSULE. PO SCH ×2 (09:00→21:49)
[2018-07-22] MEDS: rOPINIRole 1 MG TABLET. PO SCH ×2 (09:00→21:49)
[2018-07-22] MEDS: SERTRALINE 50 MG TABLET. PO SCH (09:00)
[2018-07-22] MEDS: MEGESTROL 20 MG TABLET. PO SCH ×2 (09:00→21:49)
[2018-07-22] MEDS: VITAMIN B12,B9,B6 COMPLEX 1 TABLET. PO SCH (09:00)
[2018-07-22] MEDS ORDERED: LIDOCAINE 1%/EPI 1:100,000 20 ML VIAL. ONE (11:46)
[2018-07-22] MEDS ORDERED: fentaNYL PF VIAL 100 MCG/2 ML VIAL ONE (12:45)
[2018-07-22] MEDS ORDERED: MIDAZOLAM HCL/PF 2 MG/2 ML VIAL. ONE (12:45)
[2018-07-22] MEDS: POTASSIUM CHLORIDE 20 MEQ TABLET.ER. PO SCH (13:00)
[2018-07-22] MEDS: VANCOMYCIN PER PHARMACY MC PRN (13:17)
[2018-07-22] MEDS ORDERED: LIDOCAINE 1% Multi-Dose 20 ML VIAL. INJ ONE (13:30)
[2018-07-22] MEDS ORDERED: MIDAZOLAM HCL/PF 2 MG/2 ML VIAL. IV ONE (13:30)
[2018-07-22] MEDS ORDERED: fentaNYL PF VIAL 100 MCG/2 ML VIAL IV ONE (13:30)
--- NOTE | 2018-07-22 13:34 | PDOC ---
PROGRESS NOTES Chief Complaint Chief Complaint Staph bacteremia ESRD on dialysis Anemia of ESRD Leukocytosis/sepsis C. difficile DNR Hyponatremia Hyperkalemia Vascular dementia HTN Anxiety Depression History of Present Illness History of Present Illness Out having dialysis catheter inserted Blood cultures are positive - staph bacteremia many bottles ID on board Patient on vancomycin No fever, WBC 18.9 Hemoglobin 6.9-possibly overnight MD ordered blood transfusion Potassium 5, sodium 126 On contact Isol because of bacteremia and C. difficile positivity Palliative note reviewed, patient wishes to continue dialysis for now Earlier entry: 72 yo f w/ PMHx CVA with vascular dementia, HTN, anxiety, depression, end-stage renal disease on dialysis Saturday, Saturday, (new dx 2018), last dialyzed on Saturday who p/w fever, decreased appetite, fever, decreased energy/ weakness, symptoms began 3 days ago. Found with Hb of 5.6 in ED, transfused PRBC to 7.5. She was noted with loose stools as well. She has history dementia but she is alert to person only, but is able to carry on a conversation and give some health history. She does not refuse dialysis every day. She was seen here this past January 2018 and May 2018 and sent home with home health ([facility]). She has a DPOA, Ivy the nephew has been texting who has been informed of hospital admission. 07/15: Seen on dialysis today. She has some chills with this. Notably, lab called about 3/4 bottles positive on blood culture for GPC in clusters. 07/16: Feeling terrible today. Has diarrhea x2 POSITIVE FOR C. DIFFICILE. She has bilateral LQ pain. Started on oral vancomycin and continued on IV Vancomycin 07/17: Still with poor PO intake 07/18: HD catheter pulled. Culture looks like MRSA 07/19: Still not eating, started PPN. Still with repeat blood cultures 1/4 bottles positive 07/21 DECISION FOR PALLIATIVE CARE Needed GRAM POSITIVE COCCI IN CLUSTERS, SUGGESTIVE OF STAPH, IN 4 OF 5 BOTTLES, 3 SETS DRAWN ON 07/20/18. ALL 3 SETS ARE POSITIVE. Still with some loose stools. Positive 2/4 repeat blood cultures after line was pulled. Denies SOB and CP. She does have some catheter site pain where it was pulled. PLAN: MIght neeed RAMON - r.o IE COnt vanc for now HD per renal Supprotive meds DNR dw ID Vitals Vitals Vital Signs Date Time Temp Pulse Resp B/P (MAP) Pulse Ox O2 Delivery O2 Flow Rate FiO2 07/22/18 13:27 22 100 Room Air 07/22/18 11:00 98.1 79 145/91 (109) 98.1 Physical Exam Physical Exam GENERAL: Lying down, awake and comfortable HEENT: Pupils are equal and reactive, with normal conjunctivae. Oral cavity, pharynx - mild thrush - better + dentures NECK: Supple. LUNGS: Clear to auscultation. HEART: S1, S2. ABDOMEN: Soft, mild nontender. No guarding or rebound. EXTREMITIES: No clubbing, cyanosis or gross edema. SKIN: Warm to touch, without signs of rash. NEUROLOGIC: A and O x 3 Right chest hemodialysis catheter - out General: Alert, Cooperative, No acute distress, Other (poorly oriented) Lungs: Clear Abdomen: Normal bowel sounds, Soft Extremities: No clubbing, No cyanosis, Normal pulses Skin: No rashes, No significant lesion Labs LABS Laboratory Tests Test 07/22/18 04:20 White Blood Count 18.9 x10^3/uL (4.0-11.0) Red Blood Count 2.66 x10^6/uL (3.50-5.40) Hemoglobin 6.9 g/dL (12.0-15.5) Hematocrit 21.8 % (36.0-47.0) Mean Corpuscular Volume 82 fL (79-100) Mean Corpuscular Hemoglobin 26 pg (25-35) Mean Corpuscular Hemoglobin Concent 32 g/dL (31-37) Red Cell Distribution Width 17.7 % (11.5-14.5) Platelet Count 681 x10^3/uL (140-400) Neutrophils (%) (Auto) 84 % (31-73) Lymphocytes (%) (Auto) 10 % (24-48) Monocytes (%) (Auto) 5 % (0-9) Eosinophils (%) (Auto) 1 % (0-3) Basophils (%) (Auto) 1 % (0-3) Neutrophils # (Auto) 15.9 x10^3uL (1.8-7.7) Lymphocytes # (Auto) 1.8 x10^3/uL (1.0-4.8) Monocytes # (Auto) 0.8 x10^3/uL (0.0-1.1) Eosinophils # (Auto) 0.2 x10^3/uL (0.0-0.7) Basophils # (Auto) 0.1 x10^3/uL (0.0-0.2) Sodium Level 129 mmol/L (136-145) Potassium Level 5.9 mmol/L (3.5-5.1) Chloride Level 99 mmol/L (98-107) Carbon Dioxide Level 22 mmol/L (21-32) Anion Gap 8 (6-14) Blood Urea Nitrogen 40 mg/dL (7-20) Creatinine 3.2 mg/dL (0.6-1.0) Estimated GFR (Cockcroft-Gault) 14.3 Glucose Level 93 mg/dL (70-99) Calcium Level 9.4 mg/dL (8.5-10.1) Phosphorus Level 2.1 mg/dL (2.6-4.7) Albumin 1.2 g/dL (3.4-5.0) Review of Systems Review of Systems A 14 point ROS was completed with the following noted as positive: Other systems reviewed and negative. \CONSTITUTIONAL: No fever or chills EYES: No recent changes SKIN: No rash or itching CARDIOVASCULAR: No chest pain, syncope, palpitations, or edema RESPIRATORY: No SOB or cough GASTROINTESTINAL: No nausea, vomiting or abdominal pain NEUROLOGICAL: No headaches or weakness ENDOCRINE: No cold or heat intolerance GENITOURINARY: No urgency or frequency of urination MUSCULOSKELETAL: No back pain or joint pain LYMPHATICS: No enlarged lymph nodes PSYCHIATRIC: No anxiety or depression Assessment and Plan Assessmemt and Plan Problems Medical Problems: (1) End stage renal disease Status: Acute (2) Generalized weakness Status: Acute Comment Review of Relevant I have reviewed the following items linda (where applicable) has been applied. Labs Laboratory Tests Test 07/21/18 03:50 07/22/18 04:20 White Blood Count 15.4 x10^3/uL (4.0-11.0) 18.9 x10^3/uL (4.0-11.0) Red Blood Count 2.79 x10^6/uL (3.50-5.40) 2.66 x10^6/uL (3.50-5.40) Hemoglobin 7.4 g/dL (12.0-15.5) 6.9 g/dL (12.0-15.5) Hematocrit 22.8 % (36.0-47.0) 21.8 % (36.0-47.0) Mean Corpuscular Volume 82 fL (79-100) 82 fL (79-100) Mean Corpuscular Hemoglobin 27 pg (25-35) 26 pg (25-35) Mean Corpuscular Hemoglobin Concent 32 g/dL (31-37) 32 g/dL (31-37) Red Cell Distribution Width 17.5 % (11.5-14.5) 17.7 % (11.5-14.5) Platelet Count 619 x10^3/uL (140-400) 681 x10^3/uL (140-400) Neutrophils (%) (Auto) 83 % (31-73) 84 % (31-73) Lymphocytes (%) (Auto) 11 % (24-48) 10 % (24-48) Monocytes (%) (Auto) 5 % (0-9) 5 % (0-9) Eosinophils (%) (Auto) 2 % (0-3) 1 % (0-3) Basophils (%) (Auto) 1 % (0-3) 1 % (0-3) Neutrophils # (Auto) 12.8 x10^3uL (1.8-7.7) 15.9 x10^3uL (1.8-7.7) Lymphocytes # (Auto) 1.6 x10^3/uL (1.0-4.8) 1.8 x10^3/uL (1.0-4.8) Monocytes # (Auto) 0.7 x10^3/uL (0.0-1.1) 0.8 x10^3/uL (0.0-1.1) Eosinophils # (Auto) 0.2 x10^3/uL (0.0-0.7) 0.2 x10^3/uL (0.0-0.7) Basophils # (Auto) 0.1 x10^3/uL (0.0-0.2) 0.1 x10^3/uL (0.0-0.2) Random Vancomycin Level 11.0 mcg/mL Sodium Level 129 mmol/L (136-145) Potassium Level 5.9 mmol/L (3.5-5.1) Chloride Level 99 mmol/L (98-107) Carbon Dioxide Level 22 mmol/L (21-32) Anion Gap 8 (6-14) Blood Urea Nitrogen 40 mg/dL (7-20) Creatinine 3.2 mg/dL (0.6-1.0) Estimated GFR (Cockcroft-Gault) 14.3 Glucose Level 93 mg/dL (70-99) Calcium Level 9.4 mg/dL (8.5-10.1) Phosphorus Level 2.1 mg/dL (2.6-4.7) Albumin 1.2 g/dL (3.4-5.0) Laboratory Tests Test 07/22/18 04:20 White Blood Count 18.9 x10^3/uL (4.0-11.0) Red Blood Count 2.66 x10^6/uL (3.50-5.40) Hemoglobin 6.9 g/dL (12.0-15.5) Hematocrit 21.8 % (36.0-47.0) Mean Corpuscular Volume 82 fL (79-100) Mean Corpuscular Hemoglobin 26 pg (25-35) Mean Corpuscular Hemoglobin Concent 32 g/dL (31-37) Red Cell Distribution Width 17.7 % (11.5-14.5) Platelet Count 681 x10^3/uL (140-400) Neutrophils (%) (Auto) 84 % (31-73) Lymphocytes (%) (Auto) 10 % (24-48) Monocytes (%) (Auto) 5 % (0-9) Eosinophils (%) (Auto) 1 % (0-3) Basophils (%) (Auto) 1 % (0-3) Neutrophils # (Auto) 15.9 x10^3uL (1.8-7.7) Lymphocytes # (Auto) 1.8 x10^3/uL (1.0-4.8) Monocytes # (Auto) 0.8 x10^3/uL (0.0-1.1) Eosinophils # (Auto) 0.2 x10^3/uL (0.0-0.7) Basophils # (Auto) 0.1 x10^3/uL (0.0-0.2) Sodium Level 129 mmol/L (136-145) Potassium Level 5.9 mmol/L (3.5-5.1) Chloride Level 99 mmol/L (98-107) Carbon Dioxide Level 22 mmol/L (21-32) Anion Gap 8 (6-14) Blood Urea Nitrogen 40 mg/dL (7-20) Creatinine 3.2 mg/dL (0.6-1.0) Estimated GFR (Cockcroft-Gault) 14.3 Glucose Level 93 mg/dL (70-99) Calcium Level 9.4 mg/dL (8.5-10.1) Phosphorus Level 2.1 mg/dL (2.6-4.7) Albumin 1.2 g/dL (3.4-5.0) Microbiology 07/20/18 Blood Culture - Final, Complete 07/14/18 Urine Culture - Final, Complete 07/14/18 Urine Culture Result 1 (MARYANN) - Final, Complete Medications Current Medications Piperacillin Sod/ Tazobactam Sod 4.5 gm/Sodium Chloride 100 ml @ 200 mls/hr 1X ONCE IV Last administered on 07/14/18at 15:58; Start 07/14/18 at 15:00; Stop 07/14/18 at 15:29; Status DC Vancomycin HCl (Vanco Per Pharmacy) 1 each PRN DAILY PRN MC SEE COMMENTS Last administered on 07/22/18at 13:17; Start 07/14/18 at 14:45 Vancomycin HCl 1.25 gm/Sodium Chloride 250 ml @ 166.667 mls/hr 1X ONCE IV Last administered on 07/14/18at 18:10; Start 07/14/18 at 15:00; Stop 07/14/18 at 16:29; Status DC Ondansetron HCl (Zofran) 4 mg PRN Q8HRS PRN IV NAUSEA/VOMITING; Start 07/14/18 at 17:15; Stop 07/15/18 at 17:14; Status DC Morphine Sulfate (Morphine Sulfate) 2 mg PRN Q2HR PRN IV PAIN; Start 07/14/18 at 17:15; Stop 07/15/18 at 17:14; Status DC Acetaminophen (Tylenol) 650 mg PRN Q4HRS PRN PO FEVER; Start 07/14/18 at 17:15 ; Stop 07/15/18 at 17:14; Status DC Vancomycin HCl (Vancomycin Random Level) 1 each 1X ONCE MC ; Start 07/15/18 at 06:00; Stop 07/15/18 at 06:01; Status DC Vitamin B Complex/ Vitamin C (Dinorah-Ralph) 1 tab QPM PO Last administered on 07/18at 18:27; Start 07/15/18 at 18:00 Megestrol Acetate (Megace) 40 mg BID PO Last administered on 07/21/18 22:34; Start 07/15/18 at 09:00 Mirtazapine (Remeron) 15 mg QHS PO Last administered on 07/21/18 22:35; Start 07/14/18 at 22:00 Non-Formulary Medication (Mirtazapine ) 1 tab QHS PO ; Start 07/15/18 at 21:00; Status UNV Ropinirole HCl (Requip) 3 mg BID PO Last administered on 07/16/18at 18:21; Start 07/14/18 at 22:00; Stop 07/16/18 at 19:54; Status DC Sertraline HCl (Zoloft) 100 mg DAILY PO Last administered on 07/21/18 17:36; Start 07/15/18 at 09:00 Phytonadione (Mephyton Oral Soln) 5 mg 1X ONCE PO Last administered on 22:14; Start 07/14/18 at 22:00; Stop 07/14/18 at 22:01; Status DC Vitamin B Complex (Folbic Tablet) 1 tab DAILY PO Last administered on at 17:37; Start 07/15/18 at 09:00 Albuterol/ Ipratropium (Duoneb) 3 ml RTBID NEB Last administered on 07/22/18at 08:00; Start 07/15/18 at 08:00 Sodium Chloride 1,000 ml @ 1,000 mls/hr Q1H PRN IV hypotension; Start 07/15/18 at 10:48; Stop 07/15/18 at 16:47; Status DC Albumin Human 200 ml @ 200 mls/hr 1X PRN PRN IV Hypotension; Start 07/15/18 at 11:00; Stop 07/15/18 at 16:59; Status DC Sodium Chloride 1,000 ml @ 400 mls/hr Q2H30M PRN IV PATENCY; Start 07/15/18 at 10:48; Stop 07/15/18 at 22:47; Status DC Info (PHARMACY MONITORING -- do not chart) 1 each PRN DAILY PRN MC SEE COMMENTS ; Start 07/15/18 at 11:00; Status UNV Info (PHARMACY MONITORING -- do not chart) 1 each PRN DAILY PRN MC SEE COMMENTS ; Start 07/15/18 at 11:00 Vancomycin HCl 500 mg/Sodium Chloride 100 ml @ 100 mls/hr QTUTHSA IV Last administered on 07/17/18at 16:44; Start 07/17/18 at 16:00; Stop 07/18/18 at 15:41 ; Status DC Lactobacillus Rhamnosus (Culturelle) 1 cap BID PO Last administered on at 22:35; Start 07/16/18 at 21:00 Clotrimazole (Mycelex) 10 mg 5XDAY MM Last administered on 07/21/18at 22:35; Start 07/16/18 at 14:00 Ropinirole HCl (Requip) 3 mg DAILY PO Last administered on 07/21/18at 17:36; Start 07/17/18 at 09:00 Ropinirole HCl (Requip) 2 mg QHS PO Last administered on 07/21/18 22:35; Start 07/16/18 at 21:00 Ropinirole HCl (Requip) 1 mg PRN QEVNG PRN PO RLS Last administered on at 14:56; Start 07/16/18 at 20:00 Vancomycin HCl (Vancomycin Oral Solution) 125 mg Q6HRS PO Last administered on 07/21/18at 23:58; Start 07/17/18 at 00:00 Sodium Chloride 1,000 ml @ 1,000 mls/hr Q1H PRN IV hypotension; Start 07/17/18 at 14:55; Stop 07/17/18 at 20:54; Status DC Sodium Chloride 1,000 ml @ 400 mls/hr Q2H30M PRN IV PATENCY; Start 07/17/18 at 14:55; Stop 07/18/18 at 02:54; Status DC Info (PHARMACY MONITORING -- do not chart) 1 each PRN DAILY PRN MC SEE COMMENTS ; Start 07/17/18 at 15:00; Stop 07/17/18 at 15:00; Status DC Info (PHARMACY MONITORING -- do not chart) 1 each PRN DAILY PRN MC SEE COMMENTS ; Start 07/17/18 at 15:00; Stop 07/17/18 at 15:00; Status DC Sodium Chloride 1,000 ml @ 1,000 mls/hr Q1H PRN IV hypotension; Start 07/18/18 at 11:30; Stop 07/18/18 at 17:29; Status DC Sodium Chloride 1,000 ml @ 400 mls/hr Q2H30M PRN IV PATENCY; Start 07/18/18 at 11:30; Stop 07/18/18 at 23:29; Status DC Info (PHARMACY MONITORING -- do not chart) 1 each PRN DAILY PRN MC SEE COMMENTS ; Start 07/18/18 at 12:30; Status UNV Info (PHARMACY MONITORING -- do not chart) 1 each PRN DAILY PRN MC SEE COMMENTS ; Start 07/18/18 at 12:30; Status UNV Vancomycin HCl 500 mg/Sodium Chloride 100 ml @ 100 mls/hr 1X ONCE IV Last administered on 07/18/18at 16:40; Start 07/18/18 at 16:00; Stop 07/18/18 at 16:59 ; Status DC Amino Acids/ Glycerin/ Electrolytes 1,000 ml @ 80 mls/hr [id number] IV Last administered on 07/21/18at 17:35; Start 07/19/18 at 11:45 Potassium Chloride (Klor-Con) 40 meq AFTRNOON PO Last administered on at 17:38; Start 07/19/18 at 13:00 Vancomycin HCl 500 mg/Sodium Chloride 100 ml @ 100 mls/hr 1X ONCE IV ; Start 07/21/18 at 16:00; Stop 07/21/18 at 16:59; Status Cancel Acetaminophen/ Hydrocodone Bitart (Lortab 5/325) 1 tab PRN Q6HRS PRN PO PAIN; Start 07/19/18 at 20:00 Sodium Chloride 1,000 ml @ 1,000 mls/hr Q1H PRN IV hypotension; Start 07/21/18 at 12:29; Stop 07/21/18 at 18:28; Status DC Sodium Chloride (Normal Saline Flush) 10 ml 1X PRN PRN IV AP catheter pack; Start 07/21/18 at 12:30; Stop 07/22/18 at 12:29; Status DC Sodium Chloride (Normal Saline Flush) 10 ml 1X PRN PRN IV SLEEVE SEWER catheter pack; Start 07/21/18 at 12:30; Stop 07/22/18 at 12:29; Status DC Sodium Chloride 1,000 ml @ 400 mls/hr Q2H30M PRN IV PATENCY; Start 07/21/18 at 12:29; Stop 07/22/18 at 00:28; Status DC Info (PHARMACY MONITORING -- do not chart) 1 each PRN DAILY PRN MC SEE COMMENTS ; Start 07/21/18 at 12:30; Status UNV Info (PHARMACY MONITORING -- do not chart) 1 each PRN DAILY PRN MC SEE COMMENTS ; Start 07/21/18 at 12:30 Vancomycin HCl 750 mg/Sodium Chloride 250 ml @ 250 mls/hr 1X ONCE IV ; Start 07/21/18 at 16:00; Stop 07/21/18 at 16:59; Status Cancel Vancomycin HCl 500 mg/Sodium Chloride 100 ml @ 100 mls/hr 1X ONCE IV Last administered on 07/21/18at 21:35; Start 07/21/18 at 18:30; Stop 07/21/18 at 19:29 ; Status DC Lidocaine/ Epinephrine (LIDOCAINE 1%-EPI 1:100,000 Multi-Dose) 20 ml STK-MED ONCE .ROUTE ; Start 07/22/18 at 11:46; Stop 07/22/18 at 11:47; Status DC Cefazolin Sodium 50 ml @ As Directed STK-MED ONCE IV ; Start 07/22/18 at 12:45; Stop 07/22/18 at 12:46; Status DC Midazolam HCl (Versed) 2 mg STK-MED ONCE .ROUTE ; Start 07/22/18 at 12:45; Stop 07/22/18 at 12:46; Status DC Fentanyl Citrate (Fentanyl 2ml Vial) 100 mcg STK-MED ONCE .ROUTE ; Start at 12:45; Stop 07/22/18 at 12:46; Status DC Vancomycin HCl 500 mg/Sodium Chloride 100 ml @ 100 mls/hr QTUTHSA IV ; Start at 16:00 Midazolam HCl (Versed) 2 mg 1X ONCE IV Last administered on 07/22/18 13:28; Start 07/22/18 at 13:30; Stop 07/22/18 at 13:31 Fentanyl Citrate (Fentanyl 2ml Vial) 100 mcg 1X ONCE IV Last administered on 13:27; Start 07/22/18 at 13:30; Stop 07/22/18 at 13:31 Lidocaine HCl (Lidocaine 1% 20ml Vial) 20 ml 1X ONCE INJ Last administered on 07/22/18 13:27; Start 07/22/18 at 13:30; Stop 07/22/18 at 13:31 Active Scripts Active Reported Dialyvite Tablet (Folic Acid/Vitamin B Comp W-C) 1 Each Tablet 1 Each PO QPM QPM @ 1900 [hectorol] QTUTHSA [epogen] QTUTHSA Mirtazapine 15 Mg Tablet 1 Tab PO QHS Zoloft (Sertraline Hcl) 100 Mg Tablet 1 Tab PO DAILY Requip (Ropinirole Hcl) 1 Mg Tablet 3 Mg PO BID Mirtazapine 15 Mg Tablet 1 Tab PO QHS Megestrol Acetate 40 Mg Tablet 40 Mg PO BID Vitals/I & O Vital Sign - Last 24 Hours 07/21/18 07/21/18 07/21/18 07/21/18 15:03 19:00 19:30 20:00 Temp 97.8 97.7 97.8 97.7 Pulse 85 84 Resp 18 18 B/P (MAP) 110/52 (71) 104/50 (68) Pulse Ox 99 99 100 O2 Delivery Room Air Room Air Room Air Room Air 07/21/18 07/22/18 07/22/18 07/22/18 22:30 03:00 07:00 08:00 Temp 98.4 98.4 98.1 98.4 98.4 98.1 Pulse 88 89 76 Resp 19 B/P (MAP) 134/80 (98) 148/89 (108) 125/71 (89) Pulse Ox 99 99 99 O2 Delivery Room Air Room Air Room Air Room Air 07/22/18 07/22/18 07/22/18 08:18 11:00 13:27 Temp 98.1 98.1 Pulse 79 Resp B/P (MAP) 145/91 (109) Pulse Ox 100 98 100 O2 Delivery Room Air Room Air Room Air Intake and Output 2/25/19 2/25/19 2/26/19 15:00 23:00 07:00 Intake Total 400 ml 100 ml Balance 400 ml 100 ml Nutrition Consultation Dietary Evaluation: Recommendations by RD: Add supplement feedings Comments: continue nepro bid encourage po intake Expected Outcomes/Goals: po intake to improve to 50% of meals- goal ongoing Interpretation of weight loss: >1-2% in 1 week Malnutrition Findings: Food and Nutrition Intake (Sev: <50% est energy req 5days Body Fat Depletion (Non Severe: Mod to Severe Weight Status: Underweight KATHY STRINGER MD Jul 22, 2018 13:34
--- NOTE | 2018-07-22 13:34 | PDOC ---
Infectious Disease Note Subjective Subjective awake, feeling better says ROS ROS no n/v/d/sob/fever Vital Sign Vital Signs Vital Signs Date Time Temp Pulse Resp B/P (MAP) Pulse Ox O2 Delivery O2 Flow Rate FiO2 07/22/18 13:27 22 100 Room Air 07/22/18 11:00 98.1 79 145/91 (109) 98.1 Physical Exam PHYSICAL EXAM GENERAL: Lying down, awake and comfortable HEENT: Pupils are equal and reactive, with normal conjunctivae. Oral cavity, pharynx - mild thrush - better + dentures NECK: Supple. LUNGS: Clear to auscultation. HEART: S1, S2. ABDOMEN: Soft, mild nontender. No guarding or rebound. EXTREMITIES: No clubbing, cyanosis or gross edema. SKIN: Warm to touch, without signs of rash. NEUROLOGIC: A and O x 3 Right chest hemodialysis catheter - out Labs Lab Laboratory Tests Test 07/22/18 04:20 White Blood Count 18.9 x10^3/uL (4.0-11.0) Red Blood Count 2.66 x10^6/uL (3.50-5.40) Hemoglobin 6.9 g/dL (12.0-15.5) Hematocrit 21.8 % (36.0-47.0) Mean Corpuscular Volume 82 fL (79-100) Mean Corpuscular Hemoglobin 26 pg (25-35) Mean Corpuscular Hemoglobin Concent 32 g/dL (31-37) Red Cell Distribution Width 17.7 % (11.5-14.5) Platelet Count 681 x10^3/uL (140-400) Neutrophils (%) (Auto) 84 % (31-73) Lymphocytes (%) (Auto) 10 % (24-48) Monocytes (%) (Auto) 5 % (0-9) Eosinophils (%) (Auto) 1 % (0-3) Basophils (%) (Auto) 1 % (0-3) Neutrophils # (Auto) 15.9 x10^3uL (1.8-7.7) Lymphocytes # (Auto) 1.8 x10^3/uL (1.0-4.8) Monocytes # (Auto) 0.8 x10^3/uL (0.0-1.1) Eosinophils # (Auto) 0.2 x10^3/uL (0.0-0.7) Basophils # (Auto) 0.1 x10^3/uL (0.0-0.2) Sodium Level 129 mmol/L (136-145) Potassium Level 5.9 mmol/L (3.5-5.1) Chloride Level 99 mmol/L (98-107) Carbon Dioxide Level 22 mmol/L (21-32) Anion Gap 8 (6-14) Blood Urea Nitrogen 40 mg/dL (7-20) Creatinine 3.2 mg/dL (0.6-1.0) Estimated GFR (Cockcroft-Gault) 14.3 Glucose Level 93 mg/dL (70-99) Calcium Level 9.4 mg/dL (8.5-10.1) Phosphorus Level 2.1 mg/dL (2.6-4.7) Albumin 1.2 g/dL (3.4-5.0) Micro BLOOD CULTURE Final GRAM POSITIVE COCCI IN CLUSTERS, SUGGESTIVE OF STAPH, IN 4 OF 5 BOTTLES, 3 SETS DRAWN ON 07/20/18. ALL 3 SETS ARE POSITIVE. CALLED TO CATALINA MONTEMAYOR RN ON 5S AT 14:20 ON 07/21/18 DW MT SENT TO [facility] FOR FURTHER WORKUP. Objective Assessment MRSA (R tetra) bacteremia POA 07/14 - repeat BC 07/18 + GPC - 2D echo neg vegetation -s/p tunneled HDC line removal on 07/18. C. difficile from 07/16 positive Thrush - better Anemia - S/p PRBCs Leukocytosis - better CKD on HD Severe Protein malnutrition Failure to thrive. I asked if she wanted to cont HD she said "I guess so" and I encouraged her to eat then Plan Plan Plan of Care Cont IV/po Vanc ,,, add ceftarolin Probiotics IR consult for HD cath replacement 07/21 am labs f/u cultures Contact isolation ? now 4/5 bottles positive from 07/20 07/18 also tuned + late EUGENIA GOLD MD Jul 22, 2018 13:34
[2018-07-22] MEDS: AMINO AC 3%/ELECTROLYTE/GLYCER 1,000 ML IV SCH ×2 (14:40→14:45)
--- NOTE | 2018-07-22 15:01 | PDOC ---
Renal-Progress Notes Subjective Notes Notes NONE, DID NOT ALLOW FOR LINE PLACEMENT YESTERDAY History of Present Illness Hx of present illness STABLE Vitals Vitals Vital Signs Date Time Temp Pulse Resp B/P (MAP) Pulse Ox O2 Delivery O2 Flow Rate FiO2 07/22/18 13:39 99 22 99 Nasal Cannula 2.0 07/22/18 11:00 98.1 145/91 (109) 98.1 Weight Weight [ ] I.O. Intake and Output Intake and Output 07/22/18 07:00 Intake Total 500 ml Balance 500 ml Intake Oral 400 ml IV Total 100 ml # Bowel Movements 1 Labs Labs Laboratory Tests Test 07/22/18 04:20 White Blood Count 18.9 x10^3/uL (4.0-11.0) Red Blood Count 2.66 x10^6/uL (3.50-5.40) Hemoglobin 6.9 g/dL (12.0-15.5) Hematocrit 21.8 % (36.0-47.0) Mean Corpuscular Volume 82 fL (79-100) Mean Corpuscular Hemoglobin 26 pg (25-35) Mean Corpuscular Hemoglobin Concent 32 g/dL (31-37) Red Cell Distribution Width 17.7 % (11.5-14.5) Platelet Count 681 x10^3/uL (140-400) Neutrophils (%) (Auto) 84 % (31-73) Lymphocytes (%) (Auto) 10 % (24-48) Monocytes (%) (Auto) 5 % (0-9) Eosinophils (%) (Auto) 1 % (0-3) Basophils (%) (Auto) 1 % (0-3) Neutrophils # (Auto) 15.9 x10^3uL (1.8-7.7) Lymphocytes # (Auto) 1.8 x10^3/uL (1.0-4.8) Monocytes # (Auto) 0.8 x10^3/uL (0.0-1.1) Eosinophils # (Auto) 0.2 x10^3/uL (0.0-0.7) Basophils # (Auto) 0.1 x10^3/uL (0.0-0.2) Sodium Level 129 mmol/L (136-145) Potassium Level 5.9 mmol/L (3.5-5.1) Chloride Level 99 mmol/L (98-107) Carbon Dioxide Level 22 mmol/L (21-32) Anion Gap 8 (6-14) Blood Urea Nitrogen 40 mg/dL (7-20) Creatinine 3.2 mg/dL (0.6-1.0) Estimated GFR (Cockcroft-Gault) 14.3 Glucose Level 93 mg/dL (70-99) Calcium Level 9.4 mg/dL (8.5-10.1) Phosphorus Level 2.1 mg/dL (2.6-4.7) Albumin 1.2 g/dL (3.4-5.0) Micro Micro Microbiology 07/20/18 Blood Culture - Final, Complete 07/14/18 Urine Culture - Final, Complete 07/14/18 Urine Culture Result 1 (MARYANN) - Final, Complete Review of Systems Constitutional: yes: alert, oriented Ears/Nose/Throat: Yes: no symptom reported Eyes: Yes: no symptom reported Pulmonary: Yes no symptom reported Cardiovascular: Yes no symptom reported Gastrointestional: Yes: no symptom reported Genitourinary: Yes: no symptom reported Musculoskeletal: Yes: no symptom reported Skin: Yes no symptom reported Psychiatric/Neurological: Yes: no symptom reported Endocrine: Yes: no symptom reported Hematologic/Lymphatic: Yes: no symptom reported Physical Exam General Appearance: no apparent distress Skin: warm Respiratory: decreased breath sounds Abdomen: soft, bowel sounds present Genitourinary: bladder flat Extremities: pulses present Neurology: alert Assessment Assessment IMP ESRD ANEMIA BACTEREMIA S/P DIALYSIS CATHETER REMOVAL ON SATURDAY PLAN ANTIBIOTICS NEW DIALYSIS LINE TODAY-DID NOT GET DONE YESTERDAY-PT WAS REFUSING HD TODAY UF TO DW WILL FOLLOW DEIDRA MINAYA MD Jul 22, 2018 15:01
[2018-07-22] MEDS ORDERED: IV NORMAL SALINE 1000ML BAG 1,000 ML IV PRN ×2 (15:20)
[2018-07-22] MEDS ORDERED: ACETAMINOPHEN 500 MG TABLET PO PRN (15:30)
[2018-07-22] MEDS ORDERED: 0.9 % SODIUM CHLORIDE 10 ML DISP.SYRIN. IV PRN ×2 (15:30)
[2018-07-22] MEDS ORDERED: ALBUMIN HUMAN 25% 200 ML IV PRN (15:30)
[2018-07-22] MEDS ORDERED: DIALYSIS PATIENT. MC PRN (15:30)
[2018-07-22] MEDS ORDERED: diphenhydrAMINE 50 MG/ML VIAL IV PRN ×2 (15:30)
[2018-07-22] MEDS: CEFTAROLINE FOSAMIL IV SCH (18:40)
[2018-07-22] MEDS: NORMAL SALINE IV SCH (18:40)
[2018-07-22] MEDS: FOLIC/VIT B COMP W-C (RENAL) TABLET. PO SCH (18:41)
[2018-07-22] MEDS: VANCOMYCIN 500 MG in IV NORMAL SALINE 100ML 100 ML IV SCH (21:48)
[2018-07-22] MEDS: MIRTAZAPINE 15 MG TABLET PO SCH (21:49)
[2018-07-22] MEDS: DARBEPOETIN ALFA 60 MCG/0.3 ML DISP.SYRIN. SQ SCH (21:49)
[2018-07-23] MEDS: NORMAL SALINE IV SCH ×3 (00:50→21:04)
[2018-07-23] MEDS: VANCOMYCIN 125 MG/2.5 ML ORAL SOLUTION. PO SCH ×4 (00:50→18:55)
[2018-07-23] MEDS: CEFTAROLINE FOSAMIL IV SCH ×3 (00:50→21:04)
[2018-07-23 03:00] VITALS: BP 152/87
[2018-07-23] MEDS: AMINO AC 3%/ELECTROLYTE/GLYCER 1,000 ML IV SCH ×2 (03:15→21:03)
[2018-07-23] MEDS: CLOTRIMAZOLE 10 MG TROCHE. MM SCH ×5 (06:26→22:00)
[2018-07-23] MEDS ORDERED: IV NORMAL SALINE 1000ML BAG 1,000 ML IV PRN ×2 (07:00)
[2018-07-23 07:15] VITALS: BP 161/79
[2018-07-23] MEDS: LACTOBACILLUS RHAMNOSUS GG 1 CAPSULE. PO SCH ×3 (08:55→21:04)
[2018-07-23] MEDS: MEGESTROL 20 MG TABLET. PO SCH ×3 (08:55→21:04)
[2018-07-23] MEDS: amLODIPine BESYLATE 10 MG TABLET PO SCH (09:00)
[2018-07-23] MEDS ORDERED: DIALYSIS PATIENT. MC PRN ×2 (09:00)
--- NOTE | 2018-07-23 09:06 | NUR ---
0315 TPN not given as there was still some remaining in bag.
[2018-07-23 09:23] LABS: HEMATOCRIT 24.6 % (36.0-47.0)
[2018-07-23] MEDS ORDERED: traMADol 50 MG TABLET PO PRN (09:30)
[2018-07-23] MEDS ORDERED: ONDANSETRON PF 4 MG/2 ML VIAL. IV PRN (09:30)
[2018-07-23] MEDS ORDERED: LABETALOL 20 MG/4 ML DISP.SYRIN. IVP PRN (09:30)
[2018-07-23] MEDS ORDERED: ONDANSETRON ODT 4 MG TAB.RAPDIS. PO PRN (09:30)
[2018-07-23] MEDS ORDERED: ACETAMINOPHEN 500 MG TABLET PO PRN (09:30)
--- NOTE | 2018-07-23 10:22 | PDOC ---
Infectious Disease Note Subjective Subjective awake, feeling better says ROS ROS no n/v/d/sob Vital Sign Vital Signs Vital Signs Date Time Temp Pulse Resp B/P (MAP) Pulse Ox O2 Delivery O2 Flow Rate FiO2 07/23/18 07:15 98.6 94 18 161/79 (106) 96 Room Air 98.6 07/22/18 13:39 2.0 Physical Exam PHYSICAL EXAM GENERAL: Lying down, awake and comfortable HEENT: Pupils are equal and reactive, with normal conjunctivae. Oral cavity, pharynx - mild thrush - better + dentures NECK: Supple. LUNGS: Clear to auscultation. HEART: S1, S2. ABDOMEN: Soft, mild nontender. No guarding or rebound. EXTREMITIES: No clubbing, cyanosis or gross edema. SKIN: Warm to touch, without signs of rash. NEUROLOGIC: A and O x 3 Right chest hemodialysis catheter - out Labs Lab Laboratory Tests Test 07/23/18 08:40 Hemoglobin 8.0 g/dL (12.0-15.5) Hematocrit 24.6 % (36.0-47.0) Mean Corpuscular Hemoglobin Concent 33 g/dL (31-37) Micro BLOOD CULTURE Final GRAM POSITIVE COCCI IN CLUSTERS, SUGGESTIVE OF STAPH, IN 4 OF 5 BOTTLES, 3 SETS DRAWN ON 07/20/18. ALL 3 SETS ARE POSITIVE. CALLED TO CATALINA MONTEMAYOR RN ON 5S AT 14:20 ON 07/21/18 DW MT SENT TO [facility] FOR FURTHER WORKUP. Objective Assessment MRSA (R tetra) bacteremia POA 07/14 - repeat BC 07/18 + GPC - 2D echo neg vegetation -s/p tunneled HDC line removal on 07/18. C. difficile from 07/16 positive Thrush - better Anemia - S/p PRBCs Leukocytosis - better CKD on HD Severe Protein malnutrition Failure to thrive. I asked if she wanted to cont HD she said "I guess so" and I encouraged her to eat then Plan Plan of Care Cont IV/po Vanc ,,, add ceftarolin Probiotics IR consult for HD cath replacement 07/21 am labs f/u cultures Contact isolation ? now 4/5 bottles positive from 07/20 07/18 also tuned + late will do RAMON EUGENIA GOLD MD Jul 23, 2018 10:22
--- NOTE | 2018-07-23 11:24 | NUR ---
SW following, discussed with RN. Pt is from home with niece and nephew. Pt has been refusing PT/OT, and still has a blood infection. Pt having dialysis today. SW will continue to follow.
--- NOTE | 2018-07-23 11:27 | RAD ---
Procedure: Tunneled hemodialysis catheter placement 07/23/2018 11:24 AM Clinical Indication: End-stage renal disease, Sterility: All elements of maximal sterile barrier technique including the use of a cap, mask, sterile gown, sterile gloves, large sterile sheet, appropriate hand hygiene, and 2% chlorhexidine for cutaneous antisepsis (or acceptable alternative antiseptic per current guidelines) were followed for this procedure. Consent: The procedure was explained in its entirety to the patient or the patients designated bank representative by a member of the treatment team, including a discussion of the risks, benefits and commonly accepted alternatives to the procedure, as well as the expected consequences of no therapy whatsoever. Discussion of the risks included, but was not limited to, those that are most frequent and those that are rare but possibly severe or life-threatening, as well as the possibility of unforeseen complications. Technique and Findings: Following informed consent, a timeout procedure was performed. The patient was prepped and draped in the usual sterile fashion. Ultrasound interrogation of the right neck revealed patency and compressibility of the right internal jugular vein. A 21-gauge micropuncture was then used to gain access to this vein under ultrasound guidance. A hard copy ultrasound image was recorded. The needle was exchanged over a wire for a 4 [place] sheath which was used to guide an guidewire into the IVC. The skin over the right anterior chest wall was copiously anesthetized with 1% Lidocaine and a small dermatotomy was made. A 23 cm tipped cuff palindrome tunneled hemodialysis catheter was then tunneled subcutaneously towards the neck dermatotomy and deployed through a large caliber peel-away sheath under fluoroscopic guidance such that the distal tip resided in the mid right atrium. Manual flow rates were assessed and found to be within normal limits. The catheter was then flushed, packed with Heparin, capped, and sutured to the skin. The neck dermatotomy was closed with Dermabond. No immediate complications were identified. Sedation: Conscious sedation was administered for 30 minutes. The patient was monitored by a qualified independent observer throughout the time of sedation. Please refer to the medical record for exact doses of medications utilized to achieve moderate sedation. Fluoroscopy time: : 0.3 MIN Dose area product: 1 Gycm2 Impression: Tunneled hemodialysis catheter placement as described
[2018-07-23] MEDS: VITAMIN B12,B9,B6 COMPLEX 1 TABLET. PO SCH (13:17)
[2018-07-23] MEDS: SERTRALINE 50 MG TABLET. PO SCH (13:17)
[2018-07-23] MEDS: rOPINIRole 1 MG TABLET. PO SCH ×3 (13:17→21:04)
[2018-07-23 14:31] LABS: ALBUMIN 1.2 g/dL (3.4-5.0); CALCIUM 8.2 mg/dL (8.5-10.1); CREATININE 0.9 mg/dL (0.6-1.0); GFR 61.7; PHOSPHORUS 1.3 mg/dL (2.6-4.7); POTASSIUM 3.2 mmol/L (3.5-5.1)
[2018-07-23 15:00] VITALS: BP 142/73
[2018-07-23] MEDS: VANCOMYCIN PER PHARMACY MC PRN (15:01)
--- NOTE | 2018-07-23 15:02 | NUR ---
Pharmacy Vancomycin Dosing Note S:Consulted to monitor and dose vancomycin started 07/14/18. O:TYLER GUTIERREZ is a 72 year old F with Bacteremia HCAP . Height: 5 feet, 3 inches Weight: 47.978518 kg [place] Body Weight: 52.40 Adjusted Body Weight: 50.24 Dosing Weight: Actual Other Antibiotics: ZOSYN X1 07/14 LABS: Last BUN: 40 Last Creatinine: 3.2 Creatinine Clearance: ESRD HD TTS mL/min Last WBC: 18.9 Last Procalcitonin: N/A, ESRD Tmax (past 24 hours): 98.6 Microbiology: BLOOD CX: MRSA I/O: 500/not documented Drug Levels: Last Random level: 11 on 07/21/18 at 0350 Last dose given 07/22/18 at 2148 Vancomycin Dosing: Loading Dose: 1250 mg x1 Dosing Weight: Actual Target Trough: 15-20 A: Based on: HD SCHEDULE (EXTRA SESSION), P: 1. Give Vancomycin 500 mg IV POST DIALYSIS x1 in addition to usual Tue/Ramona/Sat post-HD dosing. 2. Follow up Random level as needed. 3. Pharmacy will continue to monitor, follow and adjust therapy as needed. ALEN WAGONER [facility], 07/23/18 [id number]
[2018-07-23] MEDS: POTASSIUM CHLORIDE 20 MEQ TABLET.ER. PO SCH (15:10)
--- NOTE | 2018-07-23 15:43 | NUR ---
Pt. morning medications administered late r/t pt. being off unit for dialysis. Pt. medications not scanned r/t [employer] system being down. Pt. potassium given late r/t not being able to look at current lab values. Once this nurse was able to verify current potassium levels the medication was administered. Will continue to monitor pt.
[2018-07-23] MEDS ORDERED: VANCOMYCIN 500 MG in IV NORMAL SALINE 100ML 100 ML IV ONE (16:00)
--- NOTE | 2018-07-23 16:00 | PDOC ---
CARDIO Progress Notes Date and Time Date of Service 07/23/2018 Time of Evaluation 1110 Subjective Subjective: No Chest Pain, No shortness of breath, No Palpitations Vitals Vitals Vital Signs Date Time Temp Pulse Resp B/P (MAP) Pulse Ox O2 Delivery O2 Flow Rate FiO2 07/23/18 15:00 97.1 84 18 142/73 (96) 95 Room Air 97.1 07/22/18 13:39 2.0 Weight Weight [ ] Input and Output Intake and Output Intake and Output 07/23/18 07:00 Intake Total 1102 ml Balance 1102 ml Intake Oral 180 ml IV Total 600 ml Blood Product IV Normal Saline Flush 322 ml Laboratory Labs Laboratory Tests Test 07/23/18 08:40 07/23/18 14:10 Hemoglobin 8.0 g/dL (12.0-15.5) Hematocrit 24.6 % (36.0-47.0) Mean Corpuscular Hemoglobin Concent 33 g/dL (31-37) Sodium Level 140 mmol/L (136-145) Potassium Level 3.2 mmol/L (3.5-5.1) Chloride Level 104 mmol/L (98-107) Carbon Dioxide Level 32 mmol/L (21-32) Anion Gap 4 (6-14) Blood Urea Nitrogen 4 mg/dL (7-20) Creatinine 0.9 mg/dL (0.6-1.0) Estimated GFR (Cockcroft-Gault) 61.7 Glucose Level 114 mg/dL (70-99) Calcium Level 8.2 mg/dL (8.5-10.1) Phosphorus Level 1.3 mg/dL (2.6-4.7) Albumin 1.2 g/dL (3.4-5.0) Microbiology Micro Microbiology 07/20/18 Blood Culture - Final, Complete 07/14/18 Urine Culture - Final, Complete 07/14/18 Urine Culture Result 1 (MARYANN) - Final, Complete Review of Systems Constitutional: yes: alert, oriented Ears/Nose/Throat: Yes: no symptom reported Eyes: Yes: no symptom reported Pulmonary: Yes no symptom reported Cardiovascular: Yes no symptom reported Gastrointestional: Yes: no symptom reported Genitourinary: Yes: no symptom reported Musculoskeletal: Yes: no symptom reported Skin: Yes no symptom reported Psychiatric/Neurological: Yes: no symptom reported Endocrine: Yes: no symptom reported Hematologic/Lymphatic: Yes: no symptom reported Physical Exam HEENT: Neck Supple W Full Motion Chest: Symmetric LUNGS: Clear to Auscultation Heart: S1S2, RRR Abdomen: Soft N/T Extremities: No Calf Tenderness Neurology: alert, oriented, follow commands Assessment Assessment This is a 72 yo female admitted for fever,FTT, renal failure needing dialysis and noted with bacteremia with MRSA. RAMON has been requested by ID to rule out endocarditis. Discussed with pt in regards to RAMON, risks and benefits and agreeable to proceed. Will proceed with RAMON around 1430. Discussed with staff and will obtain consent as well as with family member with noted periods of confusion. Pt denies any esophageal disorders. ASIA GÓMEZ APRN Jul 23, 2018 16:00
[2018-07-23] MEDS: FOLIC/VIT B COMP W-C (RENAL) TABLET. PO SCH (18:00)
[2018-07-23 19:00] VITALS: BP 115/76
[2018-07-23] MEDS: MIRTAZAPINE 15 MG TABLET PO SCH ×2 (21:00→21:05)
[2018-07-23] MEDS: IPRATRPIUM/ALBUTEROL 0.5/2.5MG 3 ML NEBU. NEB SCH ×2 (21:00→21:15)
--- NOTE | 2018-07-23 21:00 | NUR ---
Called pharmacy to verify IVPB compatibility of PPN with Ceftaroline. Pharmacy confirmed compatibility.
[2018-07-23] MEDS: NYSTATIN 100,000 UNIT/GM TOPICAL CREAM 15GM TUBE. TP SCH (21:04)
[2018-07-23 22:49] VITALS: BP 123/80
--- NOTE | 2018-07-23 23:29 | PN ---
DATE: 07/23/2018 SUBJECTIVE: The patient has no complaints. Multiple blood sets are positive for staph bacteremia, on vancomycin. ID on board. Now plan for RAMON tomorrow with Cardiology on board to rule out infective endocarditis. Otherwise, the patient has had a new dialysis catheter placed because of the bacteremia. Blood pressure on the high side and had labetalol p.r.n. Hemoglobin 6.9 yesterday and repeat today is pending. She did get one unit of packed RBC. OBJECTIVE: GENERAL: Palpebral conjunctivae. Anicteric sclerae. LUNGS: Decreased breath sounds, but otherwise symmetrical chest expansion. No crackles, rhonchi or wheezing. ABDOMEN: Soft, nontender and normoactive bowel sounds. GENITALIA: Appropriate for age. EXTREMITIES: Negative edema. Pulses full and equal. She has minimal subcutaneous tissue. She has a smoker's mouth lines and she continues to smoke. She has an indwelling right tunneled dialysis catheter. ASSESSMENT AND PLAN: 1. Bacteremia, staph bacteremia, rule out infective endocarditis. 2. Anemia, fever. 3. Anemia of chronic disease. 4. ESRD on dialysis. 5. Recent exchange of dialysis catheter, right, on 07/22/2018. 6. Accelerated hypertension, POA. PLAN OF CARE: 1. N.p.o. tomorrow for RAMON tomorrow. 2. Cardiology consulted. 3. Continue vancomycin. 4. Follow cultures. 5. Labetalol p.r.n. KATHY STRINGER MD DR: /nts JOB#: [id number] / [id number]
[2018-07-24 02:47] VITALS: BP 130/78
[2018-07-24] MEDS: AMINO AC 3%/ELECTROLYTE/GLYCER 1,000 ML IV SCH ×2 (04:15→18:28)
[2018-07-24 04:59] LABS: ALBUMIN 1.2 g/dL (3.4-5.0); CALCIUM 8.4 mg/dL (8.5-10.1); CREATININE 1.5 mg/dL (0.6-1.0); GFR 34.2; PHOSPHORUS 1.6 mg/dL (2.6-4.7); POTASSIUM 4.2 mmol/L (3.5-5.1)
[2018-07-24] MEDS: VANCOMYCIN 125 MG/2.5 ML ORAL SOLUTION. PO SCH ×4 (06:00→18:28)
[2018-07-24] MEDS: CLOTRIMAZOLE 10 MG TROCHE. MM SCH ×5 (06:00→22:00)
[2018-07-24 07:00] VITALS: BP 155/96
[2018-07-24] MEDS ORDERED: PROCHLORPERAZINE 10 MG/2 ML VIAL. IV PRN (07:00)
[2018-07-24] MEDS ORDERED: ONDANSETRON PF 4 MG/2 ML VIAL. IV PRN (07:00)
[2018-07-24] MEDS ORDERED: LIDOCAINE 1% PF 2 ML VIAL. ID PRN (07:00)
[2018-07-24] MEDS ORDERED: fentaNYL PF VIAL 100 MCG/2 ML VIAL IV PRN ×2 (07:00)
[2018-07-24] MEDS ORDERED: IV RINGERS,LACTATED 1000ML 1,000 ML IV SCH (07:00)
[2018-07-24] MEDS: IPRATRPIUM/ALBUTEROL 0.5/2.5MG 3 ML NEBU. NEB SCH ×2 (08:23→19:50)
[2018-07-24] MEDS: rOPINIRole 1 MG TABLET. PO SCH ×2 (09:00→21:06)
[2018-07-24] MEDS: LACTOBACILLUS RHAMNOSUS GG 1 CAPSULE. PO SCH ×2 (09:00→21:00)
[2018-07-24] MEDS: VITAMIN B12,B9,B6 COMPLEX 1 TABLET. PO SCH (09:00)
[2018-07-24] MEDS: MEGESTROL 20 MG TABLET. PO SCH ×2 (09:00→21:00)
[2018-07-24] MEDS: SERTRALINE 50 MG TABLET. PO SCH (09:00)
[2018-07-24] MEDS: amLODIPine BESYLATE 10 MG TABLET PO SCH (09:00)
[2018-07-24] MEDS: NORMAL SALINE IV SCH ×2 (10:12→21:08)
[2018-07-24] MEDS: CEFTAROLINE FOSAMIL IV SCH ×2 (10:12→21:08)
[2018-07-24] MEDS: NYSTATIN 100,000 UNIT/GM TOPICAL CREAM 15GM TUBE. TP SCH ×2 (10:12→21:00)
--- NOTE | 2018-07-24 10:26 | PDOC ---
PROGRESS NOTES Chief Complaint Chief Complaint impression Staph bacteremia with severe risk of complications ESRD on dialysis Anemia of ESRD Leukocytosis/sepsis C. difficile DNR Hyponatremia Hyperkalemia Vascular dementia HTN Anxiety Depression History of Present Illness History of Present Illness Out having dialysis catheter inserted Blood cultures are positive - staph bacteremia many bottles ID on board Patient on vancomycin No fever, WBC 18.9 Hemoglobin 6.9-possibly overnight ordered blood transfusion Potassium 5, sodium 126 On contact Isol because of bacteremia and C. difficile positivity Palliative note reviewed, patient wishes to continue dialysis for now Earlier entry: 72 yo f w/ PMHx CVA with vascular dementia, HTN, anxiety, depression, end-stage renal disease on dialysis Saturday, Saturday, (new dx 2018), last dialyzed on Saturday who p/w fever, decreased appetite, fever, decreased energy/ weakness, symptoms began 3 days ago. Found with Hb of 5.6 in ED, transfused PRBC to 7.5. She was noted with loose stools as well. She has history dementia but she is alert to person only, but is able to carry on a conversation and give some health history. She does not refuse dialysis every day. She was seen here this past January 2018 and May 2018 and sent home with home health ([place]). She has a DPOA, Ivy the nephew has been texting who has been informed of hospital admission. 07/15: Seen on dialysis today. She has some chills with this. Notably, lab called about 3/4 bottles positive on blood culture for GPC in clusters. 07/16: Feeling terrible today. Has diarrhea x2 POSITIVE FOR C. DIFFICILE. She has bilateral LQ pain. Started on oral vancomycin and continued on IV Vancomycin 07/17: Still with poor PO intake 07/18: HD catheter pulled. Culture looks like MRSA 07/19: Still not eating, started PPN. Still with repeat blood cultures 1/4 bottles positive 07/21 DECISION FOR PALLIATIVE CARE Needed GRAM POSITIVE COCCI IN CLUSTERS, SUGGESTIVE OF STAPH, IN 4 OF 5 BOTTLES, 3 SETS DRAWN ON 07/20/18. ALL 3 SETS ARE POSITIVE. Still with some loose stools. Positive 2/4 repeat blood cultures after line was pulled. Denies SOB and CP. She does have some catheter site pain where it was pulled. PLAN: MIght neeed RAMON - r.o IE COnt vanc for now HD per renal Supprotive meds DNR dw ID Vitals Vitals Vital Signs Date Time Temp Pulse Resp B/P (MAP) Pulse Ox O2 Delivery O2 Flow Rate FiO2 07/24/18 08:24 95 Room Air 07/24/18 07:00 98.4 71 18 155/96 (115) 98.4 07/23/18 21:16 2.0 Physical Exam Physical Exam GENERAL: Lying down, awake and comfortable HEENT: Pupils are equal and reactive, with normal conjunctivae. Oral cavity, pharynx - mild thrush - better + dentures NECK: Supple. LUNGS: Clear to auscultation. HEART: S1, S2. ABDOMEN: Soft, mild nontender. No guarding or rebound. EXTREMITIES: No clubbing, cyanosis or gross edema. SKIN: Warm to touch, without signs of rash. NEUROLOGIC: A and O x 3 Right chest hemodialysis catheter - out General: Alert, Cooperative, No acute distress, mild distress, Other (poorly oriented) Lungs: Clear Abdomen: Normal bowel sounds, Soft Extremities: No clubbing, No cyanosis, Normal pulses Skin: No rashes, No significant lesion Labs LABS Laboratory Tests Test 07/23/18 14:10 07/24/18 04:10 Sodium Level 140 mmol/L (136-145) 140 mmol/L (136-145) Potassium Level 3.2 mmol/L (3.5-5.1) 4.2 mmol/L (3.5-5.1) Chloride Level 104 mmol/L (98-107) 105 mmol/L (98-107) Carbon Dioxide Level 32 mmol/L (21-32) 27 mmol/L (21-32) Anion Gap 4 (6-14) 8 (6-14) Blood Urea Nitrogen 4 mg/dL (7-20) 8 mg/dL (7-20) Creatinine 0.9 mg/dL (0.6-1.0) 1.5 mg/dL (0.6-1.0) Estimated GFR (Cockcroft-Gault) 61.7 34.2 Glucose Level 114 mg/dL (70-99) 93 mg/dL (70-99) Calcium Level 8.2 mg/dL (8.5-10.1) 8.4 mg/dL (8.5-10.1) Phosphorus Level 1.3 mg/dL (2.6-4.7) 1.6 mg/dL (2.6-4.7) Albumin 1.2 g/dL (3.4-5.0) 1.2 g/dL (3.4-5.0) Assessment and Plan Assessmemt and Plan Problems Medical Problems: (1) End stage renal disease Status: Acute (2) Generalized weakness Status: Acute Comment Review of Relevant I have reviewed the following items linda (where applicable) has been applied. Labs Laboratory Tests Test 07/23/18 08:40 07/23/18 14:10 07/24/18 04:10 Hemoglobin 8.0 g/dL (12.0-15.5) Hematocrit 24.6 % (36.0-47.0) Mean Corpuscular Hemoglobin Concent 33 g/dL (31-37) Sodium Level 140 mmol/L (136-145) 140 mmol/L (136-145) Potassium Level 3.2 mmol/L (3.5-5.1) 4.2 mmol/L (3.5-5.1) Chloride Level 104 mmol/L (98-107) 105 mmol/L (98-107) Carbon Dioxide Level 32 mmol/L (21-32) 27 mmol/L (21-32) Anion Gap 4 (6-14) 8 (6-14) Blood Urea Nitrogen 4 mg/dL (7-20) 8 mg/dL (7-20) Creatinine 0.9 mg/dL (0.6-1.0) 1.5 mg/dL (0.6-1.0) Estimated GFR (Cockcroft-Gault) 61.7 34.2 Glucose Level 114 mg/dL (70-99) 93 mg/dL (70-99) Calcium Level 8.2 mg/dL (8.5-10.1) 8.4 mg/dL (8.5-10.1) Phosphorus Level 1.3 mg/dL (2.6-4.7) 1.6 mg/dL (2.6-4.7) Albumin 1.2 g/dL (3.4-5.0) 1.2 g/dL (3.4-5.0) Laboratory Tests Test 07/23/18 14:10 07/24/18 04:10 Sodium Level 140 mmol/L (136-145) 140 mmol/L (136-145) Potassium Level 3.2 mmol/L (3.5-5.1) 4.2 mmol/L (3.5-5.1) Chloride Level 104 mmol/L (98-107) 105 mmol/L (98-107) Carbon Dioxide Level 32 mmol/L (21-32) 27 mmol/L (21-32) Anion Gap 4 (6-14) 8 (6-14) Blood Urea Nitrogen 4 mg/dL (7-20) 8 mg/dL (7-20) Creatinine 0.9 mg/dL (0.6-1.0) 1.5 mg/dL (0.6-1.0) Estimated GFR (Cockcroft-Gault) 61.7 34.2 Glucose Level 114 mg/dL (70-99) 93 mg/dL (70-99) Calcium Level 8.2 mg/dL (8.5-10.1) 8.4 mg/dL (8.5-10.1) Phosphorus Level 1.3 mg/dL (2.6-4.7) 1.6 mg/dL (2.6-4.7) Albumin 1.2 g/dL (3.4-5.0) 1.2 g/dL (3.4-5.0) Microbiology 07/20/18 Blood Culture - Preliminary, Resulted 07/20/18 Blood Culture Result 1 (MARYANN) - Preliminary, Resulted 07/14/18 Urine Culture - Final, Complete 07/14/18 Urine Culture Result 1 (MARYANN) - Final, Complete Medications Current Medications Piperacillin Sod/ Tazobactam Sod 4.5 gm/Sodium Chloride 100 ml @ 200 mls/hr 1X ONCE IV Last administered on 07/14/18at 15:58; Start 07/14/18 at 15:00; Stop 07/14/18 at 15:29; Status DC Vancomycin HCl (Vanco Per Pharmacy) 1 each PRN DAILY PRN MC SEE COMMENTS Last administered on 07/23/18at 15:01; Start 07/14/18 at 14:45 Vancomycin HCl 1.25 gm/Sodium Chloride 250 ml @ 166.667 mls/hr 1X ONCE IV Last administered on 07/14/18 18:10; Start 07/14/18 at 15:00; Stop 07/14/18 at 16:29; Status DC Ondansetron HCl (Zofran) 4 mg PRN Q8HRS PRN IV NAUSEA/VOMITING; Start 07/14/18 at 17:15; Stop 07/15/18 at 17:14; Status DC Morphine Sulfate (Morphine Sulfate) 2 mg PRN Q2HR PRN IV PAIN; Start 07/14/18 at 17:15; Stop 07/15/18 at 17:14; Status DC Acetaminophen (Tylenol) 650 mg PRN Q4HRS PRN PO FEVER; Start 07/14/18 at 17:15 ; Stop 07/15/18 at 17:14; Status DC Vancomycin HCl (Vancomycin Random Level) 1 each 1X ONCE MC ; Start 07/15/18 at 06:00; Stop 07/15/18 at 06:01; Status DC Vitamin B Complex/ Vitamin C (Dinorah-Ralph) 1 tab QPM PO Last administered on 07/23at 18:00; Start 07/15/18 at 18:00 Megestrol Acetate (Megace) 40 mg BID PO Last administered on 07/22/18at 21:49; Start 07/15/18 at 09:00 Mirtazapine (Remeron) 15 mg QHS PO Last administered on 07/22/18at 21:49; Start 07/14/18 at 22:00 Non-Formulary Medication (Mirtazapine ) 1 tab QHS PO ; Start 07/15/18 at 21:00; Status UNV Ropinirole HCl (Requip) 3 mg BID PO Last administered on 07/16/18at 18:21; Start 07/14/18 at 22:00; Stop 07/16/18 at 19:54; Status DC Sertraline HCl (Zoloft) 100 mg DAILY PO Last administered on 07/23/18at 13:17; Start 07/15/18 at 09:00 Phytonadione (Mephyton Oral Soln) 5 mg 1X ONCE PO Last administered on at 22:14; Start 07/14/18 at 22:00; Stop 07/14/18 at 22:01; Status DC Vitamin B Complex (Folbic Tablet) 1 tab DAILY PO Last administered on 13:17; Start 07/15/18 at 09:00 Albuterol/ Ipratropium (Duoneb) 3 ml RTBID NEB Last administered on 07/24/18at 08:23; Start 07/15/18 at 08:00 Sodium Chloride 1,000 ml @ 1,000 mls/hr Q1H PRN IV hypotension; Start 07/15/18 at 10:48; Stop 07/15/18 at 16:47; Status DC Albumin Human 200 ml @ 200 mls/hr 1X PRN PRN IV Hypotension; Start 07/15/18 at 11:00; Stop 07/15/18 at 16:59; Status DC Sodium Chloride 1,000 ml @ 400 mls/hr Q2H30M PRN IV PATENCY; Start 07/15/18 at 10:48; Stop 07/15/18 at 22:47; Status DC Info (PHARMACY MONITORING -- do not chart) 1 each PRN DAILY PRN MC SEE COMMENTS ; Start 07/15/18 at 11:00; Status UNV Info (PHARMACY MONITORING -- do not chart) 1 each PRN DAILY PRN MC SEE COMMENTS ; Start 07/15/18 at 11:00; Stop 07/22/18 at 14:31; Status DC Vancomycin HCl 500 mg/Sodium Chloride 100 ml @ 100 mls/hr QTUTHSA IV Last administered on 07/17/18at 16:44; Start 07/17/18 at 16:00; Stop 07/18/18 at 15:41 ; Status DC Lactobacillus Rhamnosus (Culturelle) 1 cap BID PO Last administered on at 21:49; Start 07/16/18 at 21:00 Clotrimazole (Mycelex) 10 mg 5XDAY MM Last administered on 07/23/18at 18:55; Start 07/16/18 at 14:00 Ropinirole HCl (Requip) 3 mg DAILY PO Last administered on 07/23/18at 13:17; Start 07/17/18 at 09:00 Ropinirole HCl (Requip) 2 mg QHS PO Last administered on 07/22/18at 21:49; Start 07/16/18 at 21:00 Ropinirole HCl (Requip) 1 mg PRN QEVNG PRN PO RLS Last administered on at 14:56; Start 07/16/18 at 20:00 Vancomycin HCl (Vancomycin Oral Solution) 125 mg Q6HRS PO Last administered on 07/23/18at 18:55; Start 07/17/18 at 00:00 Sodium Chloride 1,000 ml @ 1,000 mls/hr Q1H PRN IV hypotension; Start 07/17/18 at 14:55; Stop 07/17/18 at 20:54; Status DC Sodium Chloride 1,000 ml @ 400 mls/hr Q2H30M PRN IV PATENCY; Start 07/17/18 at 14:55; Stop 07/18/18 at 02:54; Status DC Info (PHARMACY MONITORING -- do not chart) 1 each PRN DAILY PRN MC SEE COMMENTS ; Start 07/17/18 at 15:00; Stop 07/17/18 at 15:00; Status DC Info (PHARMACY MONITORING -- do not chart) 1 each PRN DAILY PRN MC SEE COMMENTS ; Start 07/17/18 at 15:00; Stop 07/17/18 at 15:00; Status DC Sodium Chloride 1,000 ml @ 1,000 mls/hr Q1H PRN IV hypotension; Start 07/18/18 at 11:30; Stop 07/18/18 at 17:29; Status DC Sodium Chloride 1,000 ml @ 400 mls/hr Q2H30M PRN IV PATENCY; Start 07/18/18 at 11:30; Stop 07/18/18 at 23:29; Status DC Info (PHARMACY MONITORING -- do not chart) 1 each PRN DAILY PRN MC SEE COMMENTS ; Start 07/18/18 at 12:30; Status UNV Info (PHARMACY MONITORING -- do not chart) 1 each PRN DAILY PRN MC SEE COMMENTS ; Start 07/18/18 at 12:30; Status UNV Vancomycin HCl 500 mg/Sodium Chloride 100 ml @ 100 mls/hr 1X ONCE IV Last administered on 07/18/18at 16:40; Start 07/18/18 at 16:00; Stop 07/18/18 at 16:59 ; Status DC Amino Acids/ Glycerin/ Electrolytes 1,000 ml @ 80 mls/hr [id number] IV Last administered on 07/23/18at 21:03; Start 07/19/18 at 11:45 Potassium Chloride (Klor-Con) 40 meq AFTRNOON PO Last administered on at 15:10; Start 07/19/18 at 13:00 Vancomycin HCl 500 mg/Sodium Chloride 100 ml @ 100 mls/hr 1X ONCE IV ; Start 07/21/18 at 16:00; Stop 07/21/18 at 16:59; Status Cancel Acetaminophen/ Hydrocodone Bitart (Lortab 5/325) 1 tab PRN Q6HRS PRN PO PAIN; Start 07/19/18 at 20:00 Sodium Chloride 1,000 ml @ 1,000 mls/hr Q1H PRN IV hypotension; Start 07/21/18 at 12:29; Stop 07/21/18 at 18:28; Status DC Sodium Chloride (Normal Saline Flush) 10 ml 1X PRN PRN IV AP catheter pack; Start 07/21/18 at 12:30; Stop 07/22/18 at 12:29; Status DC Sodium Chloride (Normal Saline Flush) 10 ml 1X PRN PRN IV TESTER EQUIPMENT catheter pack; Start 07/21/18 at 12:30; Stop 07/22/18 at 12:29; Status DC Sodium Chloride 1,000 ml @ 400 mls/hr Q2H30M PRN IV PATENCY; Start 07/21/18 at 12:29; Stop 07/22/18 at 00:28; Status DC Info (PHARMACY MONITORING -- do not chart) 1 each PRN DAILY PRN MC SEE COMMENTS ; Start 07/21/18 at 12:30; Status UNV Info (PHARMACY MONITORING -- do not chart) 1 each PRN DAILY PRN MC SEE COMMENTS ; Start 07/21/18 at 12:30; Status Cancel Vancomycin HCl 750 mg/Sodium Chloride 250 ml @ 250 mls/hr 1X ONCE IV ; Start 07/21/18 at 16:00; Stop 07/21/18 at 16:59; Status Cancel Vancomycin HCl 500 mg/Sodium Chloride 100 ml @ 100 mls/hr 1X ONCE IV Last administered on 07/21/18at 21:35; Start 07/21/18 at 18:30; Stop 07/21/18 at 19:29 ; Status DC Lidocaine/ Epinephrine (LIDOCAINE 1%-EPI 1:100,000 Multi-Dose) 20 ml STK-MED ONCE .ROUTE ; Start 07/22/18 at 11:46; Stop 07/22/18 at 11:47; Status DC Cefazolin Sodium 50 ml @ As Directed STK-MED ONCE IV ; Start 07/22/18 at 12:45; Stop 07/22/18 at 12:46; Status DC Midazolam HCl (Versed) 2 mg STK-MED ONCE .ROUTE ; Start 07/22/18 at 12:45; Stop 07/22/18 at 12:46; Status DC Fentanyl Citrate (Fentanyl 2ml Vial) 100 mcg STK-MED ONCE .ROUTE ; Start at 12:45; Stop 07/22/18 at 12:46; Status DC Vancomycin HCl 500 mg/Sodium Chloride 100 ml @ 100 mls/hr QTUTHSA IV Last administered on 07/22/18at 21:48; Start 07/22/18 at 16:00 Midazolam HCl (Versed) 2 mg 1X ONCE IV Last administered on 07/22/18at 13:28; Start 07/22/18 at 13:30; Stop 07/22/18 at 13:31; Status DC Fentanyl Citrate (Fentanyl 2ml Vial) 100 mcg 1X ONCE IV Last administered on at 13:27; Start 07/22/18 at 13:30; Stop 07/22/18 at 13:31; Status DC Lidocaine HCl (Lidocaine 1% 20ml Vial) 20 ml 1X ONCE INJ Last administered on 07/22/18at 13:27; Start 07/22/18 at 13:30; Stop 07/22/18 at 13:31; Status DC Ceftaroline Fosamil 400 mg/ Sodium Chloride 250 ml @ 250 mls/hr Q12HR IV Last administered on 07/24/18at 10:12; Start 07/22/18 at 14:00 Darbepoetin Avery (Aranesp) 60 mcg [id number] SQ Last administered on 07/22/18at 21 :49; Start 07/22/18 at 21:00 Sodium Chloride 1,000 ml @ 1,000 mls/hr Q1H PRN IV hypotension; Start 07/22/18 at 15:20; Stop 07/22/18 at 21:19; Status DC Albumin Human 200 ml @ 200 mls/hr 1X PRN PRN IV Hypotension; Start 07/22/18 at 15:30; Stop 07/22/18 at 21:29; Status DC Acetaminophen (Tylenol) 500 mg 1X PRN PRN PO MILD PAIN / TEMP; Start 07/22/18 at 15:30; Stop 07/23/18 at 15:29; Status DC Diphenhydramine HCl (Benadryl) 25 mg 1X PRN PRN IV ITCHING; Start 07/22/18 at 15:30; Stop 07/23/18 at 15:29; Status DC Diphenhydramine HCl (Benadryl) 25 mg 1X PRN PRN IV ITCHING; Start 07/22/18 at 15:30; Stop 07/23/18 at 15:29; Status DC Sodium Chloride (Normal Saline Flush) 10 ml 1X PRN PRN IV AP catheter pack; Start 07/22/18 at 15:30; Stop 07/23/18 at 15:29; Status DC Sodium Chloride (Normal Saline Flush) 10 ml 1X PRN PRN IV TESTER EQUIPMENT catheter pack; Start 07/22/18 at 15:30; Stop 07/23/18 at 15:29; Status DC Sodium Chloride 1,000 ml @ 400 mls/hr Q2H30M PRN IV PATENCY; Start 07/22/18 at 15:20; Stop 07/23/18 at 03:19; Status DC Info (PHARMACY MONITORING -- do not chart) 1 each PRN DAILY PRN MC SEE COMMENTS ; Start 07/22/18 at 15:30; Stop 07/22/18 at 15:30; Status DC Sodium Chloride 1,000 ml @ 1,000 mls/hr Q1H PRN IV hypotension; Start 07/23/18 at 07:00; Stop 07/23/18 at 12:59; Status DC Sodium Chloride 1,000 ml @ 400 mls/hr Q2H30M PRN IV PATENCY; Start 07/23/18 at 07:00; Stop 07/23/18 at 18:59; Status DC Info (PHARMACY MONITORING -- do not chart) 1 each PRN DAILY PRN MC SEE COMMENTS ; Start 07/23/18 at 09:00; Status UNV Info (PHARMACY MONITORING -- do not chart) 1 each PRN DAILY PRN MC SEE COMMENTS ; Start 07/23/18 at 09:00 Labetalol HCl (Normodyne Iv Push) 10 mg PRN Q2HR PRN IVP HYPERTENSION, SEE COMMENTS; Start 07/23/18 at 09:30 Acetaminophen (Tylenol) 500 mg PRN Q6HRS PRN PO MILD PAIN / TEMP; Start at 09:30 Ondansetron HCl (Zofran) 4 mg PRN Q6HRS PRN IV NAUSEA/VOMITING; Start 07/23/18 at 09:30 Ondansetron HCl (Zofran Odt) 4 mg PRN Q6HRS PRN PO NAUSEA/VOMITING; Start 07/23 at 09:30 Tramadol HCl (Ultram) 50 mg PRN Q6HRS PRN PO PAIN; Start 07/23/18 at 09:30 Amlodipine Besylate (Norvasc) 10 mg DAILY PO ; Start 07/23/18 at 09:00 Ondansetron HCl (Zofran) 4 mg PRN Q6HRS PRN IV NAUSEA/VOMITING; Start 07/24/18 at 07:00; Stop 07/25/18 at 06:59 Fentanyl Citrate (Fentanyl 2ml Vial) 25 mcg PRN Q5MIN PRN IV MILD PAIN; Start 07/24/18 at 07:00; Stop 07/25/18 at 06:59 Fentanyl Citrate (Fentanyl 2ml Vial) 50 mcg PRN Q5MIN PRN IV MODERATE TO SEVERE PAIN; Start 07/24/18 at 07:00; Stop 07/25/18 at 06:59 Ringer's Solution 1,000 ml @ 30 mls/hr Q24H IV ; Start 07/24/18 at 07:00; Stop 07/24/18 at 18:59 Lidocaine HCl (Xylocaine-Mpf 1% 2ml Vial) 2 ml PRN 1X PRN ID PRIOR TO IV START ; Start 07/24/18 at 07:00; Stop 07/25/18 at 06:59 Prochlorperazine Edisylate (Compazine) 5 mg PACU PRN PRN IV NAUSEA, MRX1; Start 07/24/18 at 07:00; Stop 07/25/18 at 06:59 Vancomycin HCl 500 mg/Sodium Chloride 100 ml @ 100 mls/hr ONCE ONCE IV Last administered on 07/23/18at 17:23; Start 07/23/18 at 16:00; Stop 07/23/18 at 16:59 ; Status DC Nystatin (Mycostatin) 1 rolly BID TP Last administered on 07/24/18at 10:12; Start 07/23/18 at 21:00 Active Scripts Active Reported Dialyvite Tablet (Folic Acid/Vitamin B Comp W-C) 1 Each Tablet 1 Each PO QPM QPM @ 1900 [hectorol] QTUTHSA [epogen] QTUTHSA Mirtazapine 15 Mg Tablet 1 Tab PO QHS Zoloft (Sertraline Hcl) 100 Mg Tablet 1 Tab PO DAILY Requip (Ropinirole Hcl) 1 Mg Tablet 3 Mg PO BID Mirtazapine 15 Mg Tablet 1 Tab PO QHS Megestrol Acetate 40 Mg Tablet 40 Mg PO BID Vitals/I & O Vital Sign - Last 24 Hours 07/23/18 07/23/18 07/23/18 07/23/18 15:00 19:00 19:30 21:16 Temp 97.1 98.2 97.1 98.2 Pulse 84 91 Resp 18 17 B/P (MAP) 142/73 (96) 115/76 (89) Pulse Ox 95 98 98 O2 Delivery Room Air Room Air Room Air Room Air O2 Flow Rate 2.0 07/23/18 07/24/18 07/24/18 07/24/18 22:49 02:47 07:00 08:24 Temp 98.1 98.4 98.1 98.4 Pulse 86 81 71 Resp 18 18 18 B/P (MAP) 123/80 (94) 130/78 (95) 155/96 (115) Pulse Ox 99 99 95 95 O2 Delivery Room Air Room Air Room Air Room Air Intake and Output 07/23/18 07/23/18 07/24/18 15:00 23:00 07:00 Intake Total 250 ml 150 ml Output Total 0 ml Balance 250 ml 150 ml 0 ml Nutrition Consultation Dietary Evaluation: Recommendations by RD: PPN/TPN, Add supplement feedings Comments: day 5 PPN - continue until po intake improves to > 50% meals continue nepro bid encourage po intake Expected Outcomes/Goals: po intake to improve to 50% of meals- goal ongoing Interpretation of weight loss: >1-2% in 1 week Malnutrition Findings: Food and Nutrition Intake (Sev: <50% est energy req 5days Body Fat Depletion (Non Severe: Mod to Severe Weight Status: Underweight LIBERTY MUNGUIA MD Jul 24, 2018 10:26
[2018-07-24 11:02] VITALS: BP 141/86
--- NOTE | 2018-07-24 11:33 | PDOC ---
Renal-Progress Notes Subjective Notes Notes NONE History of Present Illness Hx of present illness STABLE Vitals Vitals Vital Signs Date Time Temp Pulse Resp B/P (MAP) Pulse Ox O2 Delivery O2 Flow Rate FiO2 07/24/18 11:02 98.4 78 18 141/86 (104) 96 Room Air 98.4 07/23/18 21:16 2.0 Weight Weight [ ] I.O. Intake and Output Intake and Output 07/24/18 06:59 Intake Total 400 ml Output Total 0 ml Balance 400 ml Intake Oral 150 ml IV Total 250 ml Output Urine Total 0 ml # Voids 1 # Bowel Movements 1 Labs Labs Laboratory Tests Test 07/23/18 14:10 07/24/18 04:10 Sodium Level 140 mmol/L (136-145) 140 mmol/L (136-145) Potassium Level 3.2 mmol/L (3.5-5.1) 4.2 mmol/L (3.5-5.1) Chloride Level 104 mmol/L (98-107) 105 mmol/L (98-107) Carbon Dioxide Level 32 mmol/L (21-32) 27 mmol/L (21-32) Anion Gap 4 (6-14) 8 (6-14) Blood Urea Nitrogen 4 mg/dL (7-20) 8 mg/dL (7-20) Creatinine 0.9 mg/dL (0.6-1.0) 1.5 mg/dL (0.6-1.0) Estimated GFR (Cockcroft-Gault) 61.7 34.2 Glucose Level 114 mg/dL (70-99) 93 mg/dL (70-99) Calcium Level 8.2 mg/dL (8.5-10.1) 8.4 mg/dL (8.5-10.1) Phosphorus Level 1.3 mg/dL (2.6-4.7) 1.6 mg/dL (2.6-4.7) Albumin 1.2 g/dL (3.4-5.0) 1.2 g/dL (3.4-5.0) Micro Micro Microbiology 07/20/18 Blood Culture - Preliminary, Resulted 07/20/18 Blood Culture Result 1 (MARYANN) - Preliminary, Resulted 07/14/18 Urine Culture - Final, Complete 07/14/18 Urine Culture Result 1 (MARYANN) - Final, Complete Review of Systems Constitutional: yes: alert, oriented Ears/Nose/Throat: Yes: no symptom reported Eyes: Yes: no symptom reported Pulmonary: Yes no symptom reported Cardiovascular: Yes no symptom reported Gastrointestional: Yes: no symptom reported Genitourinary: Yes: no symptom reported Musculoskeletal: Yes: no symptom reported Skin: Yes no symptom reported Psychiatric/Neurological: Yes: no symptom reported Endocrine: Yes: no symptom reported Hematologic/Lymphatic: Yes: no symptom reported Physical Exam General Appearance: no apparent distress Skin: warm Respiratory: decreased breath sounds Abdomen: soft, bowel sounds present Genitourinary: bladder flat Extremities: pulses present Neurology: alert, oriented, follow commands Assessment Assessment IMP ESRD ANEMIA BACTEREMIA S/P DIALYSIS CATHETER REMOVAL ON SATURDAY S/P NEW TDC YESTERDAY PLAN RAMON TODAY ANTIBIOTICS HD TODAY UF TO DW WILL FOLLOW DEIDRA MINAYA MD Jul 24, 2018 11:33
[2018-07-24] MEDS ORDERED: BENZOCAINE ONE 20% MUCOSAL SPRAY. (11:49)
[2018-07-24] MEDS ORDERED: LIDOCAINE 2% VISCOUS 15 ML SOLUTION. ONE (11:49)
[2018-07-24] MEDS ORDERED: LIDOCAINE 2% JELLY 6ML IN APPLICATOR. MM ONE (12:00)
[2018-07-24] MEDS ORDERED: LIDOCAINE 2% VISCOUS 15 ML SOLUTION. SWSW ONE (12:00)
[2018-07-24] MEDS ORDERED: BENZOCAINE ONE 20% MUCOSAL SPRAY. MM (12:00)
[2018-07-24] MEDS ORDERED: LIDOCAINE 2% TOPICAL JELLY 5GM TUBE. TP ONE (12:00)
--- NOTE | 2018-07-24 12:19 | NUR ---
SW following for discharge planning. Discussed with RN, pt have a RAMON today, as well as dialysis Pt has been accepted at [facility]. SW will continue to follow for discharge planning.
[2018-07-24] MEDS: POTASSIUM CHLORIDE 20 MEQ TABLET.ER. PO SCH (13:00)
[2018-07-24] MEDS ORDERED: PROPOFOL 10 MG/ML (20ML) VIAL. IV ONE (13:00)
[2018-07-24] MEDS ORDERED: IV NORMAL SALINE 1000ML BAG 1,000 ML IV PRN ×2 (13:36)
[2018-07-24] MEDS ORDERED: 0.9 % SODIUM CHLORIDE 10 ML DISP.SYRIN. IV PRN ×2 (13:45)
[2018-07-24] MEDS ORDERED: ALBUMIN HUMAN 25% 200 ML IV PRN (13:45)
[2018-07-24] MEDS ORDERED: diphenhydrAMINE 50 MG/ML VIAL IV PRN ×2 (13:45)
[2018-07-24] MEDS ORDERED: ACETAMINOPHEN 500 MG TABLET PO PRN (13:45)
[2018-07-24] MEDS ORDERED: DIALYSIS PATIENT. MC PRN (13:45)
[2018-07-24] MEDS: VANCOMYCIN PER PHARMACY MC PRN (14:01)
[2018-07-24] MEDS: FOLIC/VIT B COMP W-C (RENAL) TABLET. PO SCH (18:26)
[2018-07-24] MEDS: VANCOMYCIN 500 MG in IV NORMAL SALINE 100ML 100 ML IV SCH (18:27)
[2018-07-24 19:00] VITALS: BP 105/52
--- NOTE | 2018-07-24 19:08 | PDOC ---
Provider Note Provider Note RAMON notable for right sided line thrombus/vegetation. recommend removal and line holiday. Full RAMON report to follow. thanks CODY TYLER MD Jul 24, 2018 19:08
--- NOTE | 2018-07-24 19:20 | CARD ---
MR#: [id number] Date of Study: 07/24/2018 Ordering Physician: EUGENIA GOLD, Referring Physician: GREGORIO CONN Tech: Kymberly Farias APPROVED REPORT EXAM: Transesophageal echocardiogram with color flow Doppler. INDICATION Endocarditis RISK FACTORS Previous smoker Reason For Test : Rule out endocarditis. PROCEDURE After obtaining informed consent, patient underwent transesophageal echo in the PACU. Type of Sedation : General Anesthesia Sedation was administered by Jovanny BEAN. Sedation was achieved with Propofol 70mg intravenously. Transesophageal probe was inserted and advanced into esophagus by Mark Garcia MD. The RAMON was performed without complications. Throughout the procedure, the blood pressure, pulse oximetry, cardiac rhythm, and rate were monitored . LEFT VENTRICLE The left ventricle is normal size. There is normal left ventricular wall thickness. The left ventricu lar systolic function is normal and the ejection fraction is within normal range. EF 50-55% There is normal LV segmental wall motion. No left ventricle thrombus noted on this study. RIGHT VENTRICLE The right ventricle is normal size. There is normal right ventricular wall thickness. The right ventr icular systolic function is normal. ATRIA The left atrium size is normal. The right atrium size is normal. The interatrial septum is intact wit h no evidence for an atrial septal defect or patent foramen ovale as noted on 2-D or Doppler imaging. There is no thrombus noted in the left atrial appendage. AORTIC VALVE The aortic valve is normal in structure and function. Doppler and Color Flow revealed trace aortic re gurgitation. There is no significant aortic valvular stenosis. MITRAL VALVE The mitral valve is normal in structure and function. There is no evidence of mitral valve prolapse. There is no mitral valve stenosis. Doppler and Color-flow revealed mild mitral regurgitation. TRICUSPID VALVE The tricuspid valve is normal in structure and function. Doppler and Color Flow revealed trace tricus pid regurgitation. There is no tricuspid valve stenosis. PULMONIC VALVE The pulmonic valve is not well visualized. Doppler and Color Flow revealed trace pulmonic valvular re gurgitation. There is no pulmonic valvular stenosis. GREAT VESSELS The aortic root is normal in size. A venous catheter is seen in the SVC. This HD catheter appears to have a large mobile vegetation or thrombus (measuring at least 2.5 x 1.1 cm) extending into the RA. PERICARDIAL EFFUSION There is no evidence of significant pericardial effusion. There is no pleural effusion. Critical Notification Critical Value: No <Conclusion> The left ventricular systolic function is normal and the ejection fraction is within normal range. EF 50-55% Doppler and Color-flow revealed mild mitral regurgitation. A venous catheter is seen in the SVC. This HD catheter appears to have a large mobile vegetation or t hrombus (measuring at least 2.5 x 1.1 cm) extending into the RA. Signed by : Wing Garcia, Electronically Approved : 07/24/2018 19:19:46
[2018-07-24] MEDS: MIRTAZAPINE 15 MG TABLET PO SCH (21:00)
[2018-07-24] MEDS: rOPINIRole 1 MG TABLET. PO PRN (21:06)
[2018-07-24 23:00] VITALS: BP 141/77
[2018-07-25 03:00] VITALS: BP 136/82
[2018-07-25] MEDS: CLOTRIMAZOLE 10 MG TROCHE. MM SCH ×5 (06:18→22:41)
[2018-07-25] MEDS: VANCOMYCIN 125 MG/2.5 ML ORAL SOLUTION. PO SCH ×4 (06:18→17:59)
[2018-07-25 06:29] LABS: ALBUMIN 1.3 g/dL (3.4-5.0); CALCIUM 8.8 mg/dL (8.5-10.1); CREATININE 1.3 mg/dL (0.6-1.0); GFR 40.4; PHOSPHORUS 1.7 mg/dL (2.6-4.7); POTASSIUM 3.4 mmol/L (3.5-5.1)
[2018-07-25 07:00] VITALS: BP 140/82
[2018-07-25] MEDS: IPRATRPIUM/ALBUTEROL 0.5/2.5MG 3 ML NEBU. NEB SCH ×2 (07:26→20:00)
[2018-07-25] MEDS: amLODIPine BESYLATE 10 MG TABLET PO SCH (09:00)
[2018-07-25] MEDS: VITAMIN B12,B9,B6 COMPLEX 1 TABLET. PO SCH (09:00)
[2018-07-25] MEDS: SERTRALINE 50 MG TABLET. PO SCH (09:00)
[2018-07-25] MEDS: rOPINIRole 1 MG TABLET. PO SCH ×2 (09:00→20:53)
[2018-07-25] MEDS: LACTOBACILLUS RHAMNOSUS GG 1 CAPSULE. PO SCH ×2 (09:00→20:54)
[2018-07-25] MEDS: MEGESTROL 20 MG TABLET. PO SCH ×2 (09:00→20:53)
[2018-07-25] MEDS: NORMAL SALINE IV SCH ×2 (09:44→20:52)
[2018-07-25] MEDS: CEFTAROLINE FOSAMIL IV SCH ×2 (09:44→20:52)
[2018-07-25] MEDS: NYSTATIN 100,000 UNIT/GM TOPICAL CREAM 15GM TUBE. TP SCH ×2 (10:48→20:54)
--- NOTE | 2018-07-25 10:56 | NUR ---
SW following. Discussed with RN, pt having a procedure possibly today or over the weekend. SW will continue to follow.
--- NOTE | 2018-07-25 10:57 | PDOC ---
Infectious Disease Note Subjective Subjective awake, feeling better says ROS ROS no n/v/d/sob Vital Sign Vital Signs Vital Signs Date Time Temp Pulse Resp B/P (MAP) Pulse Ox O2 Delivery O2 Flow Rate FiO2 07/25/18 07:26 100 Room Air 07/25/18 07:00 98.2 86 18 140/82 (101) 98.2 07/24/18 13:50 4.0 Physical Exam PHYSICAL EXAM GENERAL: Lying down, awake and comfortable HEENT: Pupils are equal and reactive, with normal conjunctivae. Oral cavity, pharynx - mild thrush - better + dentures NECK: Supple. LUNGS: Clear to auscultation. HEART: S1, S2. ABDOMEN: Soft, mild nontender. No guarding or rebound. EXTREMITIES: No clubbing, cyanosis or gross edema. SKIN: Warm to touch, without signs of rash. NEUROLOGIC: A and O x 3 Right chest hemodialysis catheter - out Labs Lab Laboratory Tests Test 07/25/18 05:35 Sodium Level 142 mmol/L (136-145) Potassium Level 3.4 mmol/L (3.5-5.1) Chloride Level 105 mmol/L (98-107) Carbon Dioxide Level 30 mmol/L (21-32) Anion Gap 7 (6-14) Blood Urea Nitrogen 6 mg/dL (7-20) Creatinine 1.3 mg/dL (0.6-1.0) Estimated GFR (Cockcroft-Gault) 40.4 Glucose Level 96 mg/dL (70-99) Calcium Level 8.8 mg/dL (8.5-10.1) Phosphorus Level 1.7 mg/dL (2.6-4.7) Albumin 1.3 g/dL (3.4-5.0) Micro BLOOD CULTURE Final GRAM POSITIVE COCCI IN CLUSTERS, SUGGESTIVE OF STAPH, IN 4 OF 5 BOTTLES, 3 SETS DRAWN ON 07/20/18. ALL 3 SETS ARE POSITIVE. CALLED TO CATALINA MONTEMAYOR RN ON 5S AT 14:20 ON 07/21/18 DW MT SENT TO [facility] FOR FURTHER WORKUP. Objective Assessment MRSA (R tetra) bacteremia POA 07/14 - repeat BC 07/18 + and 07/20 +, - 2D echo neg vegetation -s/p tunneled HDC line removal on 07/18. C. difficile from 07/16 positive Thrush - better Anemia - S/p PRBCs Leukocytosis - better CKD on HD Severe Protein malnutrition Failure to thrive. I asked if she wanted to cont HD she said "I guess so" and I encouraged her to eat then Plan Plan of Care Cont IV/po Vanc ,,, ceftarolin Probiotics IR consult for HD cath replacement 07/21 am labs f/u cultures Contact isolation ? now 4/5 bottles positive from 07/20 07/18 also tuned + late RAMON noted, likely fibrin sheath , cath is only 2 days old, d/w Dr Guerrero, will wait for repeat bc EUGENIA GOLD MD Jul 25, 2018 10:57
[2018-07-25 11:00] VITALS: BP 157/99
[2018-07-25] MEDS ORDERED: LOPERAMIDE 2 MG CAPSULE PO ONE (11:15)
--- NOTE | 2018-07-25 11:22 | PDOC ---
Renal-Progress Notes Subjective Notes Notes NONE History of Present Illness Hx of present illness BETTER Vitals Vitals Vital Signs Date Time Temp Pulse Resp B/P (MAP) Pulse Ox O2 Delivery O2 Flow Rate FiO2 07/25/18 11:00 97.9 95 16 157/99 (118) 100 Room Air 97.9 07/24/18 13:50 4.0 Weight Weight [ ] I.O. Intake and Output Intake and Output 07/25/18 07:00 Intake Total 310 ml Output Total 0 ml Balance 310 ml Intake Oral 60 ml IV Total 250 ml Output Urine Total 0 ml # Voids 4 # Bowel Movements 1 Labs Labs Laboratory Tests Test 07/25/18 05:35 Sodium Level 142 mmol/L (136-145) Potassium Level 3.4 mmol/L (3.5-5.1) Chloride Level 105 mmol/L (98-107) Carbon Dioxide Level 30 mmol/L (21-32) Anion Gap 7 (6-14) Blood Urea Nitrogen 6 mg/dL (7-20) Creatinine 1.3 mg/dL (0.6-1.0) Estimated GFR (Cockcroft-Gault) 40.4 Glucose Level 96 mg/dL (70-99) Calcium Level 8.8 mg/dL (8.5-10.1) Phosphorus Level 1.7 mg/dL (2.6-4.7) Albumin 1.3 g/dL (3.4-5.0) Micro Micro Microbiology 07/20/18 Blood Culture - Final, Complete 07/20/18 Blood Culture Result 1 (MARYANN) - Final, Complete 07/20/18 Antimicrobic Susceptibility - Final, Complete 07/14/18 Urine Culture - Final, Complete 07/14/18 Urine Culture Result 1 (MARYANN) - Final, Complete Review of Systems Constitutional: yes: alert, oriented Ears/Nose/Throat: Yes: no symptom reported Eyes: Yes: no symptom reported Pulmonary: Yes no symptom reported Cardiovascular: Yes no symptom reported Gastrointestional: Yes: no symptom reported Genitourinary: Yes: no symptom reported Musculoskeletal: Yes: no symptom reported Skin: Yes no symptom reported Psychiatric/Neurological: Yes: no symptom reported Endocrine: Yes: no symptom reported Hematologic/Lymphatic: Yes: no symptom reported Physical Exam General Appearance: no apparent distress Skin: warm Respiratory: decreased breath sounds Abdomen: soft, bowel sounds present Genitourinary: bladder flat Extremities: pulses present Neurology: alert, oriented, follow commands Assessment Assessment IMP ESRD ANEMIA BACTEREMIA S/P DIALYSIS CATHETER REMOVAL ON SATURDAY S/P NEW TDC - TIP MOST LIKELY FIBRIN SHEATH REMNANT PLAN IF CULTURES RETURN POSITIVE AGAIN, WILL NEED LINE OUT AGAIN ANTIBIOTICS HD TOMORROW WILL FOLLOW D/W DEIDRA PADGETT MD Jul 25, 2018 11:22
--- NOTE | 2018-07-25 12:14 | PDOC ---
PROGRESS NOTES Chief Complaint Chief Complaint impression Staph bacteremia with severe risk of complications ESRD on dialysis Anemia of ESRD Leukocytosis/sepsis C. difficile DNR Hyponatremia Hyperkalemia Vascular dementia HTN Anxiety Depression noncompliance with PT/OT 07/25 History of Present Illness History of Present Illness dialysis catheter inserted Blood cultures are positive - staph bacteremia many bottles ID FOLLOWING Patient on vancomycin No fever, WBC 18.9 Hemoglobin 6.9-possibly overnight MD ordered blood transfusion NOW 8 Potassium 5, sodium 126 On contact Isol because of bacteremia and C. difficile positivity Palliative note reviewed, patient wishes to continue dialysis 07/25 Earlier entry: 72 yo f w/ PMHx CVA with vascular dementia, HTN, anxiety, depression, end-stage renal disease on dialysis Saturday, Saturday, (new dx 2018), last dialyzed on Saturday who p/w fever, decreased appetite, fever, decreased energy/ weakness, symptoms began 3 days ago. Found with Hb of 5.6 in ED, transfused PRBC to 7.5. She was noted with loose stools as well. She has history dementia but she is alert to person only, but is able to carry on a conversation and give some health history. She does not refuse dialysis every day. She was seen here this past January 2018 and May 2018 and sent home with home health ([facility]). She has a DPOA, Ivy the nephew has been texting who has been informed of hospital admission. 07/15: Seen on dialysis today. She has some chills with this. Notably, lab called about 3/4 bottles positive on blood culture for GPC in clusters. 07/16: Feeling terrible today. Has diarrhea x2 POSITIVE FOR C. DIFFICILE. She has bilateral LQ pain. Started on oral vancomycin and continued on IV Vancomycin 07/17: Still with poor PO intake 07/18: HD catheter pulled. Culture looks like MRSA 07/19: Still not eating, started PPN. Still with repeat blood cultures 1/4 bottles positive 07/21 DECISION FOR PALLIATIVE CARE Needed GRAM POSITIVE COCCI IN CLUSTERS, SUGGESTIVE OF STAPH, IN 4 OF 5 BOTTLES, 3 SETS DRAWN ON 07/20/18. ALL 3 SETS ARE POSITIVE. Still with some loose stools. Positive 2/4 repeat blood cultures after line was pulled. Denies SOB and CP. She does have some catheter site pain where it was pulled. 07/25 NONCOMPLIANT WITH PT/OT, BLOOD CUL PENDING, REPEAT, high risk of complications due to noncompliance per my personal review of chart PLAN: MIght conor RAMON - r.o IE COnt vanc for now HD per renal Supprotive meds DNR dw ID Vitals Vitals Vital Signs Date Time Temp Pulse Resp B/P (MAP) Pulse Ox O2 Delivery O2 Flow Rate FiO2 07/25/18 11:00 97.9 95 16 157/99 (118) 100 Room Air 97.9 07/24/18 13:50 4.0 Physical Exam Physical Exam GENERAL: Lying down, awake and comfortable HEENT: Pupils are equal and reactive, with normal conjunctivae. Oral cavity, pharynx - mild thrush - better + dentures NECK: Supple. LUNGS: Clear to auscultation. HEART: S1, S2. ABDOMEN: Soft, mild nontender. No guarding or rebound. EXTREMITIES: No clubbing, cyanosis or gross edema. SKIN: Warm to touch, without signs of rash. NEUROLOGIC: A and O x 3 Right chest hemodialysis catheter - out General: Alert, Oriented X3, Cooperative, No acute distress, mild distress, Other (poorly oriented) Heart: Regular rate Lungs: Clear Abdomen: Normal bowel sounds, Soft Extremities: No clubbing, No cyanosis, Normal pulses Skin: No rashes, No significant lesion Labs LABS Laboratory Tests Test 07/25/18 05:35 Sodium Level 142 mmol/L (136-145) Potassium Level 3.4 mmol/L (3.5-5.1) Chloride Level 105 mmol/L (98-107) Carbon Dioxide Level 30 mmol/L (21-32) Anion Gap 7 (6-14) Blood Urea Nitrogen 6 mg/dL (7-20) Creatinine 1.3 mg/dL (0.6-1.0) Estimated GFR (Cockcroft-Gault) 40.4 Glucose Level 96 mg/dL (70-99) Calcium Level 8.8 mg/dL (8.5-10.1) Phosphorus Level 1.7 mg/dL (2.6-4.7) Albumin 1.3 g/dL (3.4-5.0) Assessment and Plan Assessmemt and Plan Problems Medical Problems: (1) End stage renal disease Status: Acute (2) Generalized weakness Status: Acute Consent: The procedure was explained in its entirety to the patient or the patients designated service representative by a member of the treatment team, including a discussion of the risks, benefits and commonly accepted alternatives to the procedure, as well as the expected consequences of no therapy whatsoever. Discussion of the risks included, but was not limited to, those that are most frequent and those that are rare but possibly severe or life-threatening, as well as the possibility of unforeseen complications. Technique and Findings: Following informed consent, a timeout procedure was performed. The patient was prepped and draped in the usual sterile fashion. Ultrasound interrogation of the right neck revealed patency and compressibility of the right internal jugular vein. A 21-gauge micropuncture was then used to gain access to this vein under ultrasound guidance. A hard copy ultrasound image was recorded. The needle was exchanged over a wire for a 4 Albanian sheath which was used to guide an guidewire into the IVC. The skin over the right anterior chest wall was copiously anesthetized with 1% Lidocaine and a small dermatotomy was made. A 23 cm tipped cuff palindrome tunneled hemodialysis catheter was then tunneled subcutaneously towards the neck dermatotomy and deployed through a large caliber peel-away sheath under fluoroscopic guidance such that the distal tip resided in the mid right atrium. Manual flow rates were assessed and found to be within normal limits. The catheter was then flushed, packed with Heparin, capped, and sutured to the skin. The neck dermatotomy was closed with Dermabond. No immediate complications were identified. Sedation: Conscious sedation was administered for 30 minutes. The patient was monitored by a qualified independent observer throughout the time of sedation. Please refer to the medical record for exact doses of medications utilized to achieve moderate sedation. Fluoroscopy time: : 0.3 MIN Dose area product: 1 Gycm2 Impression: Tunneled hemodialysis catheter placement as described Comment Review of Relevant I have reviewed the following items linda (where applicable) has been applied. Labs Laboratory Tests Test 07/23/18 14:10 07/24/18 04:10 07/25/18 05:35 Sodium Level 140 mmol/L (136-145) 140 mmol/L (136-145) 142 mmol/L (136-145) Potassium Level 3.2 mmol/L (3.5-5.1) 4.2 mmol/L (3.5-5.1) 3.4 mmol/L (3.5-5.1) Chloride Level 104 mmol/L (98-107) 105 mmol/L (98-107) 105 mmol/L (98-107) Carbon Dioxide Level 32 mmol/L (21-32) 27 mmol/L (21-32) 30 mmol/L (21-32) Anion Gap 4 (6-14) 8 (6-14) 7 (6-14) Blood Urea Nitrogen 4 mg/dL (7-20) 8 mg/dL (7-20) 6 mg/dL (7-20) Creatinine 0.9 mg/dL (0.6-1.0) 1.5 mg/dL (0.6-1.0) 1.3 mg/dL (0.6-1.0) Estimated GFR (Cockcroft-Gault) 61.7 34.2 40.4 Glucose Level 114 mg/dL (70-99) 93 mg/dL (70-99) 96 mg/dL (70-99) Calcium Level 8.2 mg/dL (8.5-10.1) 8.4 mg/dL (8.5-10.1) 8.8 mg/dL (8.5-10.1) Phosphorus Level 1.3 mg/dL (2.6-4.7) 1.6 mg/dL (2.6-4.7) 1.7 mg/dL (2.6-4.7) Albumin 1.2 g/dL (3.4-5.0) 1.2 g/dL (3.4-5.0) 1.3 g/dL (3.4-5.0) Laboratory Tests Test 07/25/18 05:35 Sodium Level 142 mmol/L (136-145) Potassium Level 3.4 mmol/L (3.5-5.1) Chloride Level 105 mmol/L (98-107) Carbon Dioxide Level 30 mmol/L (21-32) Anion Gap 7 (6-14) Blood Urea Nitrogen 6 mg/dL (7-20) Creatinine 1.3 mg/dL (0.6-1.0) Estimated GFR (Cockcroft-Gault) 40.4 Glucose Level 96 mg/dL (70-99) Calcium Level 8.8 mg/dL (8.5-10.1) Phosphorus Level 1.7 mg/dL (2.6-4.7) Albumin 1.3 g/dL (3.4-5.0) Microbiology 07/20/18 Blood Culture - Final, Complete 07/20/18 Blood Culture Result 1 (MARYANN) - Final, Complete 07/20/18 Antimicrobic Susceptibility - Final, Complete 07/14/18 Urine Culture - Final, Complete 07/14/18 Urine Culture Result 1 (MARYANN) - Final, Complete Medications Current Medications Piperacillin Sod/ Tazobactam Sod 4.5 gm/Sodium Chloride 100 ml @ 200 mls/hr 1X ONCE IV Last administered on 07/14/18at 15:58; Start 07/14/18 at 15:00; Stop 07/14/18 at 15:29; Status DC Vancomycin HCl (Vanco Per Pharmacy) 1 each PRN DAILY PRN MC SEE COMMENTS Last administered on 07/24/18at 14:01; Start 07/14/18 at 14:45 Vancomycin HCl 1.25 gm/Sodium Chloride 250 ml @ 166.667 mls/hr 1X ONCE IV Last administered on 07/14/18at 18:10; Start 07/14/18 at 15:00; Stop 07/14/18 at 16:29; Status DC Ondansetron HCl (Zofran) 4 mg PRN Q8HRS PRN IV NAUSEA/VOMITING; Start 07/14/18 at 17:15; Stop 07/15/18 at 17:14; Status DC Morphine Sulfate (Morphine Sulfate) 2 mg PRN Q2HR PRN IV PAIN; Start 07/14/18 at 17:15; Stop 07/15/18 at 17:14; Status DC Acetaminophen (Tylenol) 650 mg PRN Q4HRS PRN PO FEVER; Start 07/14/18 at 17:15 ; Stop 07/15/18 at 17:14; Status DC Vancomycin HCl (Vancomycin Random Level) 1 each 1X ONCE MC ; Start 07/15/18 at 06:00; Stop 07/15/18 at 06:01; Status DC Vitamin B Complex/ Vitamin C (Dinorah-Ralph) 1 tab QPM PO Last administered on 07/24at 18:26; Start 07/15/18 at 18:00 Megestrol Acetate (Megace) 40 mg BID PO Last administered on 07/22/18at 21:49; Start 07/15/18 at 09:00 Mirtazapine (Remeron) 15 mg QHS PO Last administered on 07/22/18at 21:49; Start 07/14/18 at 22:00 Non-Formulary Medication (Mirtazapine ) 1 tab QHS PO ; Start 07/15/18 at 21:00; Status UNV Ropinirole HCl (Requip) 3 mg BID PO Last administered on 07/16/18at 18:21; Start 07/14/18 at 22:00; Stop 07/16/18 at 19:54; Status DC Sertraline HCl (Zoloft) 100 mg DAILY PO Last administered on 07/23/18 13:17; Start 07/15/18 at 09:00 Phytonadione (Mephyton Oral Soln) 5 mg 1X ONCE PO Last administered on 22:14; Start 07/14/18 at 22:00; Stop 07/14/18 at 22:01; Status DC Vitamin B Complex (Folbic Tablet) 1 tab DAILY PO Last administered on 13:17; Start 07/15/18 at 09:00 Albuterol/ Ipratropium (Duoneb) 3 ml RTBID NEB Last administered on 07/25/18at 07 :26; Start 07/15/18 at 08:00 Sodium Chloride 1,000 ml @ 1,000 mls/hr Q1H PRN IV hypotension; Start 07/15/18 at 10:48; Stop 07/15/18 at 16:47; Status DC Albumin Human 200 ml @ 200 mls/hr 1X PRN PRN IV Hypotension; Start 07/15/18 at 11:00; Stop 07/15/18 at 16:59; Status DC Sodium Chloride 1,000 ml @ 400 mls/hr Q2H30M PRN IV PATENCY; Start 07/15/18 at 10:48; Stop 07/15/18 at 22:47; Status DC Info (PHARMACY MONITORING -- do not chart) 1 each PRN DAILY PRN MC SEE COMMENTS ; Start 07/15/18 at 11:00; Status UNV Info (PHARMACY MONITORING -- do not chart) 1 each PRN DAILY PRN MC SEE COMMENTS ; Start 07/15/18 at 11:00; Stop 07/22/18 at 14:31; Status DC Vancomycin HCl 500 mg/Sodium Chloride 100 ml @ 100 mls/hr QTUTHSA IV Last administered on 07/17/18at 16:44; Start 07/17/18 at 16:00; Stop 07/18/18 at 15:41 ; Status DC Lactobacillus Rhamnosus (Culturelle) 1 cap BID PO Last administered on at 21:49; Start 07/16/18 at 21:00 Clotrimazole (Mycelex) 10 mg 5XDAY MM Last administered on 07/25/18at 06:18; Start 07/16/18 at 14:00 Ropinirole HCl (Requip) 3 mg DAILY PO Last administered on 07/23/18at 13:17; Start 07/17/18 at 09:00 Ropinirole HCl (Requip) 2 mg QHS PO Last administered on 07/24/18at 21:06; Start 07/16/18 at 21:00 Ropinirole HCl (Requip) 1 mg PRN QEVNG PRN PO RLS Last administered on at 21:06; Start 07/16/18 at 20:00 Vancomycin HCl (Vancomycin Oral Solution) 125 mg Q6HRS PO Last administered on 07/25/18at 06:18; Start 07/17/18 at 00:00 Sodium Chloride 1,000 ml @ 1,000 mls/hr Q1H PRN IV hypotension; Start 07/17/18 at 14:55; Stop 07/17/18 at 20:54; Status DC Sodium Chloride 1,000 ml @ 400 mls/hr Q2H30M PRN IV PATENCY; Start 07/17/18 at 14:55; Stop 07/18/18 at 02:54; Status DC Info (PHARMACY MONITORING -- do not chart) 1 each PRN DAILY PRN MC SEE COMMENTS ; Start 07/17/18 at 15:00; Stop 07/17/18 at 15:00; Status DC Info (PHARMACY MONITORING -- do not chart) 1 each PRN DAILY PRN MC SEE COMMENTS ; Start 07/17/18 at 15:00; Stop 07/17/18 at 15:00; Status DC Sodium Chloride 1,000 ml @ 1,000 mls/hr Q1H PRN IV hypotension; Start 07/18/18 at 11:30; Stop 07/18/18 at 17:29; Status DC Sodium Chloride 1,000 ml @ 400 mls/hr Q2H30M PRN IV PATENCY; Start 07/18/18 at 11:30; Stop 07/18/18 at 23:29; Status DC Info (PHARMACY MONITORING -- do not chart) 1 each PRN DAILY PRN MC SEE COMMENTS ; Start 07/18/18 at 12:30; Status UNV Info (PHARMACY MONITORING -- do not chart) 1 each PRN DAILY PRN MC SEE COMMENTS ; Start 07/18/18 at 12:30; Status UNV Vancomycin HCl 500 mg/Sodium Chloride 100 ml @ 100 mls/hr 1X ONCE IV Last administered on 07/18/18at 16:40; Start 07/18/18 at 16:00; Stop 07/18/18 at 16:59 ; Status DC Amino Acids/ Glycerin/ Electrolytes 1,000 ml @ 80 mls/hr [id number] IV Last administered on 07/24/18at 18:28; Start 07/19/18 at 11:45 Potassium Chloride (Klor-Con) 40 meq AFTRNOON PO Last administered on at 15:10; Start 07/19/18 at 13:00 Vancomycin HCl 500 mg/Sodium Chloride 100 ml @ 100 mls/hr 1X ONCE IV ; Start 07/21/18 at 16:00; Stop 07/21/18 at 16:59; Status Cancel Acetaminophen/ Hydrocodone Bitart (Lortab 5/325) 1 tab PRN Q6HRS PRN PO SEVERE PAIN; Start 07/19/18 at 20:00 Sodium Chloride 1,000 ml @ 1,000 mls/hr Q1H PRN IV hypotension; Start 07/21/18 at 12:29; Stop 07/21/18 at 18:28; Status DC Sodium Chloride (Normal Saline Flush) 10 ml 1X PRN PRN IV AP catheter pack; Start 07/21/18 at 12:30; Stop 07/22/18 at 12:29; Status DC Sodium Chloride (Normal Saline Flush) 10 ml 1X PRN PRN IV PLASTERER ROUGH catheter pack; Start 07/21/18 at 12:30; Stop 07/22/18 at 12:29; Status DC Sodium Chloride 1,000 ml @ 400 mls/hr Q2H30M PRN IV PATENCY; Start 07/21/18 at 12:29; Stop 07/22/18 at 00:28; Status DC Info (PHARMACY MONITORING -- do not chart) 1 each PRN DAILY PRN MC SEE COMMENTS ; Start 07/21/18 at 12:30; Status UNV Info (PHARMACY MONITORING -- do not chart) 1 each PRN DAILY PRN MC SEE COMMENTS ; Start 07/21/18 at 12:30; Status Cancel Vancomycin HCl 750 mg/Sodium Chloride 250 ml @ 250 mls/hr 1X ONCE IV ; Start 07/21/18 at 16:00; Stop 07/21/18 at 16:59; Status Cancel Vancomycin HCl 500 mg/Sodium Chloride 100 ml @ 100 mls/hr 1X ONCE IV Last administered on 07/21/18at 21:35; Start 07/21/18 at 18:30; Stop 07/21/18 at 19:29 ; Status DC Lidocaine/ Epinephrine (LIDOCAINE 1%-EPI 1:100,000 Multi-Dose) 20 ml STK-MED ONCE .ROUTE ; Start 07/22/18 at 11:46; Stop 07/22/18 at 11:47; Status DC Cefazolin Sodium 50 ml @ As Directed STK-MED ONCE IV ; Start 07/22/18 at 12:45; Stop 07/22/18 at 12:46; Status DC Midazolam HCl (Versed) 2 mg STK-MED ONCE .ROUTE ; Start 07/22/18 at 12:45; Stop 07/22/18 at 12:46; Status DC Fentanyl Citrate (Fentanyl 2ml Vial) 100 mcg STK-MED ONCE .ROUTE ; Start at 12:45; Stop 07/22/18 at 12:46; Status DC Vancomycin HCl 500 mg/Sodium Chloride 100 ml @ 100 mls/hr QTUTHSA IV Last administered on 07/24/18at 18:27; Start 07/22/18 at 16:00 Midazolam HCl (Versed) 2 mg 1X ONCE IV Last administered on 07/22/18at 13:28; Start 07/22/18 at 13:30; Stop 07/22/18 at 13:31; Status DC Fentanyl Citrate (Fentanyl 2ml Vial) 100 mcg 1X ONCE IV Last administered on at 13:27; Start 07/22/18 at 13:30; Stop 07/22/18 at 13:31; Status DC Lidocaine HCl (Lidocaine 1% 20ml Vial) 20 ml 1X ONCE INJ Last administered on 07/22/18at 13:27; Start 07/22/18 at 13:30; Stop 07/22/18 at 13:31; Status DC Ceftaroline Fosamil 400 mg/ Sodium Chloride 250 ml @ 250 mls/hr Q12HR IV Last administered on 07/25/18at 09:44; Start 07/22/18 at 14:00 Darbepoetin Avery (Aranesp) 60 mcg [id number] SQ Last administered on 07/22/18at 21 :49; Start 07/22/18 at 21:00 Sodium Chloride 1,000 ml @ 1,000 mls/hr Q1H PRN IV hypotension; Start 07/22/18 at 15:20; Stop 07/22/18 at 21:19; Status DC Albumin Human 200 ml @ 200 mls/hr 1X PRN PRN IV Hypotension; Start 07/22/18 at 15:30; Stop 07/22/18 at 21:29; Status DC Acetaminophen (Tylenol) 500 mg 1X PRN PRN PO MILD PAIN / TEMP; Start 07/22/18 at 15:30; Stop 07/23/18 at 15:29; Status DC Diphenhydramine HCl (Benadryl) 25 mg 1X PRN PRN IV ITCHING; Start 07/22/18 at 15:30; Stop 07/23/18 at 15:29; Status DC Diphenhydramine HCl (Benadryl) 25 mg 1X PRN PRN IV ITCHING; Start 07/22/18 at 15:30; Stop 07/23/18 at 15:29; Status DC Sodium Chloride (Normal Saline Flush) 10 ml 1X PRN PRN IV AP catheter pack; Start 07/22/18 at 15:30; Stop 07/23/18 at 15:29; Status DC Sodium Chloride (Normal Saline Flush) 10 ml 1X PRN PRN IV PLASTERER ROUGH catheter pack; Start 07/22/18 at 15:30; Stop 07/23/18 at 15:29; Status DC Sodium Chloride 1,000 ml @ 400 mls/hr Q2H30M PRN IV PATENCY; Start 07/22/18 at 15:20; Stop 07/23/18 at 03:19; Status DC Info (PHARMACY MONITORING -- do not chart) 1 each PRN DAILY PRN MC SEE COMMENTS ; Start 07/22/18 at 15:30; Stop 07/22/18 at 15:30; Status DC Sodium Chloride 1,000 ml @ 1,000 mls/hr Q1H PRN IV hypotension; Start 07/23/18 at 07:00; Stop 07/23/18 at 12:59; Status DC Sodium Chloride 1,000 ml @ 400 mls/hr Q2H30M PRN IV PATENCY; Start 07/23/18 at 07:00; Stop 07/23/18 at 18:59; Status DC Info (PHARMACY MONITORING -- do not chart) 1 each PRN DAILY PRN MC SEE COMMENTS ; Start 07/23/18 at 09:00; Status UNV Info (PHARMACY MONITORING -- do not chart) 1 each PRN DAILY PRN MC SEE COMMENTS ; Start 07/23/18 at 09:00 Labetalol HCl (Normodyne Iv Push) 10 mg PRN Q2HR PRN IVP HYPERTENSION, SEE COMMENTS; Start 07/23/18 at 09:30 Acetaminophen (Tylenol) 500 mg PRN Q6HRS PRN PO MILD PAIN / TEMP; Start at 09:30 Ondansetron HCl (Zofran) 4 mg PRN Q6HRS PRN IV NAUSEA/VOMITING; Start 07/23/18 at 09:30 Ondansetron HCl (Zofran Odt) 4 mg PRN Q6HRS PRN PO NAUSEA/VOMITING; Start 07/23 at 09:30 Tramadol HCl (Ultram) 50 mg PRN Q6HRS PRN PO MODERATE PAIN; Start 07/23/18 at 09:30 Amlodipine Besylate (Norvasc) 10 mg DAILY PO ; Start 07/23/18 at 09:00 Ondansetron HCl (Zofran) 4 mg PRN Q6HRS PRN IV NAUSEA/VOMITING; Start 07/24/18 at 07:00; Stop 07/25/18 at 06:59; Status DC Fentanyl Citrate (Fentanyl 2ml Vial) 25 mcg PRN Q5MIN PRN IV MILD PAIN; Start 07/24/18 at 07:00; Stop 07/25/18 at 06:59; Status DC Fentanyl Citrate (Fentanyl 2ml Vial) 50 mcg PRN Q5MIN PRN IV MODERATE TO SEVERE PAIN; Start 07/24/18 at 07:00; Stop 07/25/18 at 06:59; Status DC Ringer's Solution 1,000 ml @ 30 mls/hr Q24H IV ; Start 07/24/18 at 07:00; Stop 07/24/18 at 18:59; Status DC Lidocaine HCl (Xylocaine-Mpf 1% 2ml Vial) 2 ml PRN 1X PRN ID PRIOR TO IV START ; Start 07/24/18 at 07:00; Stop 07/25/18 at 06:59; Status DC Prochlorperazine Edisylate (Compazine) 5 mg PACU PRN PRN IV NAUSEA, MRX1; Start 07/24/18 at 07:00; Stop 07/25/18 at 06:59; Status DC Vancomycin HCl 500 mg/Sodium Chloride 100 ml @ 100 mls/hr ONCE ONCE IV Last administered on 07/23/18at 17:23; Start 07/23/18 at 16:00; Stop 07/23/18 at 16:59 ; Status DC Nystatin (Mycostatin) 1 rolly BID TP Last administered on 07/25/18at 10:48; Start 07/23/18 at 21:00 Benzocaine (Hurricaine One) 1 spray STK-MED ONCE .ROUTE ; Start 07/24/18 at 11: 49; Stop 07/24/18 at 11:50; Status Cancel Lidocaine HCl (Viscous Lidocaine) 15 ml STK-MED ONCE .ROUTE ; Start 07/24/18 at 11:49; Stop 07/24/18 at 11:50; Status DC Lidocaine HCl (Xylocaine 2% Topical 5gm Tube) 1 rolly 1X ONCE TP ; Start at 12:00; Stop 07/24/18 at 12:01; Status DC Lidocaine HCl (Viscous Lidocaine) 15 ml 1X ONCE SWSW Last administered on 07/24at 13:12; Start 07/24/18 at 12:00; Stop 07/24/18 at 12:01; Status DC Benzocaine (Hurricaine One) 3 spray 1X ONCE MM Last administered on 07/24/18at 13:11; Start 07/24/18 at 12:00; Stop 07/24/18 at 12:01; Status DC Lidocaine HCl (Glydo (Lidocaine) Jelly) 1 rolly 1X ONCE MM Last administered on 07/24/18at 13:10; Start 07/24/18 at 12:00; Stop 07/24/18 at 12:01; Status DC Sodium Chloride 1,000 ml @ 1,000 mls/hr Q1H PRN IV hypotension; Start 07/24/18 at 13:36; Stop 07/24/18 at 19:35; Status DC Albumin Human 200 ml @ 200 mls/hr 1X PRN PRN IV Hypotension; Start 07/24/18 at 13:45; Stop 07/24/18 at 19:44; Status DC Acetaminophen (Tylenol) 500 mg 1X PRN PRN PO MILD PAIN / TEMP; Start 07/24/18 at 13:45; Stop 07/25/18 at 13:44 Diphenhydramine HCl (Benadryl) 25 mg 1X PRN PRN IV ITCHING; Start 07/24/18 at 13:45; Stop 07/25/18 at 13:44 Diphenhydramine HCl (Benadryl) 25 mg 1X PRN PRN IV ITCHING; Start 07/24/18 at 13:45; Stop 07/25/18 at 13:44 Sodium Chloride (Normal Saline Flush) 10 ml 1X PRN PRN IV AP catheter pack; Start 07/24/18 at 13:45; Stop 07/25/18 at 13:44 Sodium Chloride (Normal Saline Flush) 10 ml 1X PRN PRN IV PLASTERER ROUGH catheter pack; Start 07/24/18 at 13:45; Stop 07/25/18 at 13:44 Sodium Chloride 1,000 ml @ 400 mls/hr Q2H30M PRN IV PATENCY; Start 07/24/18 at 13:36; Stop 07/25/18 at 01:35; Status DC Info (PHARMACY MONITORING -- do not chart) 1 each PRN DAILY PRN MC SEE COMMENTS ; Start 07/24/18 at 13:45; Stop 07/24/18 at 13:45; Status DC Propofol (Diprivan) 200 mg STK-MED ONCE IV ; Start 07/24/18 at 13:00; Stop at 08:16; Status DC Loperamide HCl (Imodium) 2 mg 1X ONCE PO ; Start 07/25/18 at 11:15; Stop at 11:16; Status DC Active Scripts Active Reported Dialyvite Tablet (Folic Acid/Vitamin B Comp W-C) 1 Each Tablet 1 Each PO QPM QPM @ 1900 [hectorol] QTUTHSA [epogen] QTUTHSA Mirtazapine 15 Mg Tablet 1 Tab PO QHS Zoloft (Sertraline Hcl) 100 Mg Tablet 1 Tab PO DAILY Requip (Ropinirole Hcl) 1 Mg Tablet 3 Mg PO BID Mirtazapine 15 Mg Tablet 1 Tab PO QHS Megestrol Acetate 40 Mg Tablet 40 Mg PO BID Vitals/I & O Vital Sign - Last 24 Hours 07/24/18 07/24/18 07/24/18 07/24/18 12:30 13:27 13:27 13:30 Temp 99.0 98.6 98.6 99.0 98.6 98.6 Pulse 90 81 80 Resp 23 B/P (MAP) 146/69 137/71 130/60 Pulse Ox 100 100 98 O2 Delivery Room Air Nasal Cannula Nasal Cannula Nasal Cannula O2 Flow Rate 4.0 4.0 4.0 4.0 07/24/18 07/24/18 07/24/18 07/24/18 13:40 13:50 13:58 19:00 Temp 98.6 98.6 98.6 98.7 98.6 98.6 98.6 98.7 Pulse 80 82 81 99 Resp 20 B/P (MAP) 119/96 170/65 137/58 105/52 (69) Pulse Ox 92 100 100 99 O2 Delivery Nasal Cannula Nasal Cannula Room Air O2 Flow Rate 4.0 4.0 07/24/18 07/24/18 07/24/18 07/25/18 19:51 20:00 23:00 03:00 Temp 98.9 98.7 98.9 98.7 Pulse 89 84 Resp 20 20 B/P (MAP) 141/77 (98) 136/82 (100) Pulse Ox 97 99 95 O2 Delivery Room Air Room Air Room Air 07/25/18 07/25/18 07/25/18 07/25/18 07:00 07:26 08:00 11:00 Temp 98.2 97.9 98.2 97.9 Pulse 86 95 Resp 18 16 B/P (MAP) 140/82 (101) 157/99 (118) Pulse Ox 94 100 100 O2 Delivery Room Air Room Air Room Air Room Air Intake and Output 07/24/18 07/24/18 07/25/18 14:59 22:59 06:59 Intake Total 250 ml 0 ml 60 ml Output Total 0 ml Balance 250 ml 0 ml 60 ml Nutrition Consultation Dietary Evaluation: Recommendations by RD: PPN/TPN, Add supplement feedings Comments: day 5 PPN - continue until po intake improves to > 50% meals continue nepro bid encourage po intake Expected Outcomes/Goals: po intake to improve to 50% of meals- goal ongoing Interpretation of weight loss: >1-2% in 1 week Malnutrition Findings: Food and Nutrition Intake (Sev: <50% est energy req 5days Body Fat Depletion (Non Severe: Mod to Severe Weight Status: Underweight LIBERTY MUNGUIA MD Jul 25, 2018 12:14
[2018-07-25] MEDS: POTASSIUM CHLORIDE 20 MEQ TABLET.ER. PO SCH (13:00)
[2018-07-25 14:21] LABS: BASO # 0.2 x10^3/uL (0.0-0.2); BASO % 1 % (0-3); EOS # 0.2 x10^3/uL (0.0-0.7); EOS % 2 % (0-3); HEMATOCRIT 23.6 % (36.0-47.0); HEMOGLOBIN 7.3 g/dL (12.0-15.5); LYMPH # 1.6 x10^3/uL (1.0-4.8); LYMPH % 12 % (24-48); MEAN CORPUSCULAR HEMOGLOBIN 27 pg (25-35); MEAN CORPUSCULAR HGB CONC 31 g/dL (31-37); MEAN CORPUSCULAR VOLUME 88 fL (79-100); MONO # 0.9 x10^3/uL (0.0-1.1); MONO % 7 % (0-9); NEUT # 10.1 x10^3uL (1.8-7.7); NEUT % 78 % (31-73); PLATELET COUNT 446 x10^3/uL (140-400); RED CELL DISTRIBUTION WIDTH 17.9 % (11.5-14.5)
[2018-07-25 15:00] VITALS: BP 122/75
--- NOTE | 2018-07-25 15:24 | NUR ---
Pt was soiled when we went into the room at 1500, she refused to let us change her bedding or gown. Informed pt that we will need to change her bedding to prevent skin breakdiown. She agreed to have us changer her bedding "soon". Changed bedding and gown at 1525.
[2018-07-25] MEDS: VANCOMYCIN PER PHARMACY MC PRN (15:37)
--- NOTE | 2018-07-25 15:42 | NUR ---
Pharmacy TPN Dosing Note S: TYLER GUTIERREZ is a 72 year old F Currently receiving TPN started B:Pertinent PMH: Height: 5 feet, 3 inches Weight: [id number] kg Current diet: LABS: Sodium: Potassium: Chloride: Calcium: Corrected Calcium: Magnesium: CO2: SCr: 1.3 Glucose: Albumin: AST: ALT: TPN FORMULA: TPN TYPE: AMINO ACIDS: gm DEXTROSE: gm LIPIDS: gm SODIUM CHLORIDE: mEq SODIUM ACETATE: mEq SODIUM PHOSPHATE: mmol POTASSIUM CHLORIDE: mEq POTASSIUM ACETATE: mEq POTASSIUM PHOSPHATE: mmol MAGNESIUM: mEq CALCIUM: mEq INSULIN: units MULTIPLE VITAMIN: TRACE ELEMENTS: ml(s) TPN PLAN:SAME TPN LAST ADMISSION R: Continue TPN ORDERED Will monitor electrolytes, glucose, and tolerance to TPN. MARLA PORTILLO, [facility], 07/25/18 3050
[2018-07-25] MEDS: AMINO AC 3%/ELECTROLYTE/GLYCER 1,000 ML IV SCH ×2 (17:00→17:45)
[2018-07-25] MEDS: FOLIC/VIT B COMP W-C (RENAL) TABLET. PO SCH (17:59)
[2018-07-25 19:59] VITALS: BP 149/94
[2018-07-25] MEDS: MIRTAZAPINE 15 MG TABLET PO SCH (20:54)
[2018-07-25 23:59] VITALS: BP 135/97
[2018-07-26] MEDS: VANCOMYCIN 125 MG/2.5 ML ORAL SOLUTION. PO SCH ×4 (01:20→17:46)
[2018-07-26 03:59] VITALS: BP 176/94
[2018-07-26] MEDS: CLOTRIMAZOLE 10 MG TROCHE. MM SCH ×5 (05:27→22:00)
[2018-07-26] MEDS: AMINO AC 3%/ELECTROLYTE/GLYCER 1,000 ML IV SCH ×2 (05:29→19:59)
[2018-07-26 06:27] LABS: HEMATOCRIT 24.3 % (36.0-47.0); HEMOGLOBIN 7.8 g/dL (12.0-15.5); RED BLOOD COUNT 2.84 x10^6/uL (3.50-5.40); RED CELL DISTRIBUTION WIDTH 17.6 % (11.5-14.5); WHITE BLOOD COUNT 15.5 x10^3/uL (4.0-11.0)
[2018-07-26 06:51] LABS: ALBUMIN 1.3 g/dL (3.4-5.0); CALCIUM 9.2 mg/dL (8.5-10.1); GFR 24.6; PHOSPHORUS 2.2 mg/dL (2.6-4.7); POTASSIUM 3.9 mmol/L (3.5-5.1)
--- NOTE | 2018-07-26 06:58 | PDOC ---
Infectious Disease Note Subjective Subjective awake, feeling better says ROS ROS no n/v/d/sob Vital Sign Vital Signs Vital Signs Date Time Temp Pulse Resp B/P (MAP) Pulse Ox O2 Delivery O2 Flow Rate FiO2 07/26/18 03:59 98.2 90 20 176/94 (121) 95 Room Air 98.2 Physical Exam PHYSICAL EXAM GENERAL: Lying down, awake and comfortable HEENT: Pupils are equal and reactive, with normal conjunctivae. Oral cavity, pharynx - mild thrush - better + dentures NECK: Supple. LUNGS: Clear to auscultation. HEART: S1, S2. ABDOMEN: Soft, mild nontender. No guarding or rebound. EXTREMITIES: No clubbing, cyanosis or gross edema. SKIN: Warm to touch, without signs of rash. NEUROLOGIC: A and O x 3 Right chest hemodialysis catheter - out Labs Lab Laboratory Tests Test 07/26/18 05:33 White Blood Count 15.5 x10^3/uL (4.0-11.0) Red Blood Count 2.84 x10^6/uL (3.50-5.40) Hemoglobin 7.8 g/dL (12.0-15.5) Hematocrit 24.3 % (36.0-47.0) Mean Corpuscular Volume 86 fL (79-100) Mean Corpuscular Hemoglobin 28 pg (25-35) Mean Corpuscular Hemoglobin Concent 32 g/dL (31-37) Red Cell Distribution Width 17.6 % (11.5-14.5) Platelet Count 422 x10^3/uL (140-400) Sodium Level 134 mmol/L (136-145) Potassium Level 3.9 mmol/L (3.5-5.1) Chloride Level 100 mmol/L (98-107) Carbon Dioxide Level 25 mmol/L (21-32) Anion Gap 9 (6-14) Blood Urea Nitrogen 13 mg/dL (7-20) Creatinine 2.0 mg/dL (0.6-1.0) Estimated GFR (Cockcroft-Gault) 24.6 Glucose Level 91 mg/dL (70-99) Calcium Level 9.2 mg/dL (8.5-10.1) Phosphorus Level 2.2 mg/dL (2.6-4.7) Albumin 1.3 g/dL (3.4-5.0) Micro BLOOD CULTURE Final GRAM POSITIVE COCCI IN CLUSTERS, SUGGESTIVE OF STAPH, IN 4 OF 5 BOTTLES, 3 SETS DRAWN ON 07/20/18. ALL 3 SETS ARE POSITIVE. CALLED TO CATALINA MONTEMAYOR RN ON 5S AT 14:20 ON 07/21/18 DW MT SENT TO [facility] FOR FURTHER WORKUP. Objective Assessment MRSA (R tetra) bacteremia POA 07/14 - repeat BC 07/18 + and 07/20 +, BC neg from 07/24 so far - 2D echo neg vegetation -s/p tunneled HDC line removal on 07/18. C. difficile from 07/16 positive Thrush - better Anemia - S/p PRBCs Leukocytosis - better CKD on HD Severe Protein malnutrition Failure to thrive. I asked if she wanted to cont HD she said "I guess so" and I encouraged her to eat then Plan Plan of Care Cont IV/po Vanc ,,, ceftarolin Probiotics IR consult for HD cath replacement 2/25 am labs f/u cultures Contact isolation 07/18 and 07/20 +,,, 07/24 neg so far RAMON noted, likely fibrin sheath , cath is only 2 days old, d/w Dr Guerrero, will wait for repeat bc EUGENIA GOLD MD Jul 26, 2018 06:58
[2018-07-26 07:00] VITALS: BP 156/104
[2018-07-26] MEDS: IPRATRPIUM/ALBUTEROL 0.5/2.5MG 3 ML NEBU. NEB SCH ×2 (08:57→18:55)
--- NOTE | 2018-07-26 10:33 | PDOC ---
PROGRESS NOTES Chief Complaint Chief Complaint impression Staph bacteremia with severe risk of complications ESRD on dialysis Anemia of ESRD Leukocytosis/sepsis C. difficile DNR Hyponatremia Hyperkalemia Vascular dementia HTN Anxiety Depression noncompliance with PT/OT 07/25 History of Present Illness History of Present Illness dialysis catheter inserted Blood cultures are positive - staph bacteremia many bottles ID FOLLOWING Patient on vancomycin No fever, WBC 18.9 Hemoglobin 6.9-possibly overnight MD ordered blood transfusion NOW 8 Potassium 5, sodium 126 On contact Isol because of bacteremia and C. difficile positivity Palliative note reviewed, patient wishes to continue dialysis 07/25 Earlier entry: 72 yo f w/ PMHx CVA with vascular dementia, HTN, anxiety, depression, end-stage renal disease on dialysis Saturday, Saturday, (new dx 2018), last dialyzed on Saturday who p/w fever, decreased appetite, fever, decreased energy/ weakness, symptoms began 3 days ago. Found with Hb of 5.6 in ED, transfused PRBC to 7.5. She was noted with loose stools as well. She has history dementia but she is alert to person only, but is able to carry on a conversation and give some health history. She does not refuse dialysis every day. She was seen here this past January 2018 and May 2018 and sent home with home health ([email or web address]). She has a DPOA, Ivy the nephew has been texting who has been informed of hospital admission. 07/15: Seen on dialysis today. She has some chills with this. Notably, lab called about 3/4 bottles positive on blood culture for GPC in clusters. 07/16: Feeling terrible today. Has diarrhea x2 POSITIVE FOR C. DIFFICILE. She has bilateral LQ pain. Started on oral vancomycin and continued on IV Vancomycin 07/17: Still with poor PO intake 07/18: HD catheter pulled. Culture looks like MRSA 07/19: Still not eating, started PPN. Still with repeat blood cultures 1/4 bottles positive 07/21 DECISION FOR PALLIATIVE CARE Needed GRAM POSITIVE COCCI IN CLUSTERS, SUGGESTIVE OF STAPH, IN 4 OF 5 BOTTLES, 3 SETS DRAWN ON 07/20/18. ALL 3 SETS ARE POSITIVE. Still with some loose stools. Positive 2/4 repeat blood cultures after line was pulled. Denies SOB and CP. She does have some catheter site pain where it was pulled. 07/25 NONCOMPLIANT WITH PT/OT, BLOOD CUL PENDING, REPEAT, high risk of complications due to noncompliance per my personal review of chart 07/[facility] SATURDAY refusing to eat lunch today, bp uncontrolled PLAN: MIght neeed RAMON - r.o IE COnt vanc for now HD per renal Supprotive meds DNR pt/ot [facility] FRIDAY 07/28 planned dw ID Vitals Vitals Vital Signs Date Time Temp Pulse Resp B/P (MAP) Pulse Ox O2 Delivery O2 Flow Rate FiO2 07/26/18 09:03 100 Room Air 07/26/18 07:00 98.1 93 20 156/104 (121) 98.1 Physical Exam Physical Exam GENERAL: Lying down, awake and comfortable depressed HEENT: Pupils are equal and reactive, with normal conjunctivae. Oral cavity, pharynx - mild thrush - better + dentures NECK: Supple. LUNGS: Clear to auscultation. HEART: S1, S2. ABDOMEN: Soft, mild nontender. No guarding or rebound. EXTREMITIES: No clubbing, cyanosis or gross edema. SKIN: Warm to touch, no signs of rash. NEUROLOGIC: A and O x 3 Right chest hemodialysis catheter - out General: Alert, Oriented X3, Cooperative, No acute distress, mild distress, Other (poorly oriented) Heart: Regular rate, Normal S1 Lungs: Clear Abdomen: Normal bowel sounds, Soft Extremities: No clubbing, No cyanosis, Normal pulses Skin: No rashes, No significant lesion Labs LABS Laboratory Tests Test 07/26/18 05:33 White Blood Count 15.5 x10^3/uL (4.0-11.0) Red Blood Count 2.84 x10^6/uL (3.50-5.40) Hemoglobin 7.8 g/dL (12.0-15.5) Hematocrit 24.3 % (36.0-47.0) Mean Corpuscular Volume 86 fL (79-100) Mean Corpuscular Hemoglobin 28 pg (25-35) Mean Corpuscular Hemoglobin Concent 32 g/dL (31-37) Red Cell Distribution Width 17.6 % (11.5-14.5) Platelet Count 422 x10^3/uL (140-400) Sodium Level 134 mmol/L (136-145) Potassium Level 3.9 mmol/L (3.5-5.1) Chloride Level 100 mmol/L (98-107) Carbon Dioxide Level 25 mmol/L (21-32) Anion Gap 9 (6-14) Blood Urea Nitrogen 13 mg/dL (7-20) Creatinine 2.0 mg/dL (0.6-1.0) Estimated GFR (Cockcroft-Gault) 24.6 Glucose Level 91 mg/dL (70-99) Calcium Level 9.2 mg/dL (8.5-10.1) Phosphorus Level 2.2 mg/dL (2.6-4.7) Albumin 1.3 g/dL (3.4-5.0) Assessment and Plan Assessmemt and Plan Problems Medical Problems: (1) End stage renal disease Status: Acute (2) Generalized weakness Status: Acute Comment Review of Relevant I have reviewed the following items linda (where applicable) has been applied. Labs Laboratory Tests Test 07/25/18 05:35 07/26/18 05:33 White Blood Count 13.0 x10^3/uL (4.0-11.0) 15.5 x10^3/uL (4.0-11.0) Red Blood Count 2.70 x10^6/uL (3.50-5.40) 2.84 x10^6/uL (3.50-5.40) Hemoglobin 7.3 g/dL (12.0-15.5) 7.8 g/dL (12.0-15.5) Hematocrit 23.6 % (36.0-47.0) 24.3 % (36.0-47.0) Mean Corpuscular Volume 88 fL (79-100) 86 fL (79-100) Mean Corpuscular Hemoglobin 27 pg (25-35) 28 pg (25-35) Mean Corpuscular Hemoglobin Concent 31 g/dL (31-37) 32 g/dL (31-37) Red Cell Distribution Width 17.9 % (11.5-14.5) 17.6 % (11.5-14.5) Platelet Count 446 x10^3/uL (140-400) 422 x10^3/uL (140-400) Neutrophils (%) (Auto) 78 % (31-73) Lymphocytes (%) (Auto) 12 % (24-48) Monocytes (%) (Auto) 7 % (0-9) Eosinophils (%) (Auto) 2 % (0-3) Basophils (%) (Auto) 1 % (0-3) Neutrophils # (Auto) 10.1 x10^3uL (1.8-7.7) Lymphocytes # (Auto) 1.6 x10^3/uL (1.0-4.8) Monocytes # (Auto) 0.9 x10^3/uL (0.0-1.1) Eosinophils # (Auto) 0.2 x10^3/uL (0.0-0.7) Basophils # (Auto) 0.2 x10^3/uL (0.0-0.2) Sodium Level 142 mmol/L (136-145) 134 mmol/L (136-145) Potassium Level 3.4 mmol/L (3.5-5.1) 3.9 mmol/L (3.5-5.1) Chloride Level 105 mmol/L (98-107) 100 mmol/L (98-107) Carbon Dioxide Level 30 mmol/L (21-32) 25 mmol/L (21-32) Anion Gap 7 (6-14) 9 (6-14) Blood Urea Nitrogen 6 mg/dL (7-20) 13 mg/dL (7-20) Creatinine 1.3 mg/dL (0.6-1.0) 2.0 mg/dL (0.6-1.0) Estimated GFR (Cockcroft-Gault) 40.4 24.6 Glucose Level 96 mg/dL (70-99) 91 mg/dL (70-99) Calcium Level 8.8 mg/dL (8.5-10.1) 9.2 mg/dL (8.5-10.1) Phosphorus Level 1.7 mg/dL (2.6-4.7) 2.2 mg/dL (2.6-4.7) Albumin 1.3 g/dL (3.4-5.0) 1.3 g/dL (3.4-5.0) Laboratory Tests Test 07/26/18 05:33 White Blood Count 15.5 x10^3/uL (4.0-11.0) Red Blood Count 2.84 x10^6/uL (3.50-5.40) Hemoglobin 7.8 g/dL (12.0-15.5) Hematocrit 24.3 % (36.0-47.0) Mean Corpuscular Volume 86 fL (79-100) Mean Corpuscular Hemoglobin 28 pg (25-35) Mean Corpuscular Hemoglobin Concent 32 g/dL (31-37) Red Cell Distribution Width 17.6 % (11.5-14.5) Platelet Count 422 x10^3/uL (140-400) Sodium Level 134 mmol/L (136-145) Potassium Level 3.9 mmol/L (3.5-5.1) Chloride Level 100 mmol/L (98-107) Carbon Dioxide Level 25 mmol/L (21-32) Anion Gap 9 (6-14) Blood Urea Nitrogen 13 mg/dL (7-20) Creatinine 2.0 mg/dL (0.6-1.0) Estimated GFR (Cockcroft-Gault) 24.6 Glucose Level 91 mg/dL (70-99) Calcium Level 9.2 mg/dL (8.5-10.1) Phosphorus Level 2.2 mg/dL (2.6-4.7) Albumin 1.3 g/dL (3.4-5.0) Microbiology 07/24/18 Blood Culture - Preliminary, Resulted NO GROWTH AFTER 1 DAY 07/14/18 Urine Culture - Final, Complete 07/14/18 Urine Culture Result 1 (MARYANN) - Final, Complete Medications Current Medications Piperacillin Sod/ Tazobactam Sod 4.5 gm/Sodium Chloride 100 ml @ 200 mls/hr 1X ONCE IV Last administered on 07/14/18at 15:58; Start 07/14/18 at 15:00; Stop 07/14/18 at 15:29; Status DC Vancomycin HCl (Vanco Per Pharmacy) 1 each PRN DAILY PRN MC SEE COMMENTS Last administered on 07/25/18at 15:37; Start 07/14/18 at 14:45 Vancomycin HCl 1.25 gm/Sodium Chloride 250 ml @ 166.667 mls/hr 1X ONCE IV Last administered on 07/14/18at 18:10; Start 07/14/18 at 15:00; Stop 07/14/18 at 16:29; Status DC Ondansetron HCl (Zofran) 4 mg PRN Q8HRS PRN IV NAUSEA/VOMITING; Start 07/14/18 at 17:15; Stop 07/15/18 at 17:14; Status DC Morphine Sulfate (Morphine Sulfate) 2 mg PRN Q2HR PRN IV PAIN; Start 07/14/18 at 17:15; Stop 07/15/18 at 17:14; Status DC Acetaminophen (Tylenol) 650 mg PRN Q4HRS PRN PO FEVER; Start 07/14/18 at 17:15 ; Stop 07/15/18 at 17:14; Status DC Vancomycin HCl (Vancomycin Random Level) 1 each 1X ONCE MC ; Start 07/15/18 at 06:00; Stop 07/15/18 at 06:01; Status DC Vitamin B Complex/ Vitamin C (Dinorah-Ralph) 1 tab QPM PO Last administered on at 17:59; Start 07/15/18 at 18:00 Megestrol Acetate (Megace) 40 mg BID PO Last administered on 07/25/18 20:53; Start 07/15/18 at 09:00 Mirtazapine (Remeron) 15 mg QHS PO Last administered on 07/25/18 20:54; Start 07/14/18 at 22:00 Non-Formulary Medication (Mirtazapine ) 1 tab QHS PO ; Start 07/15/18 at 21:00; Status UNV Ropinirole HCl (Requip) 3 mg BID PO Last administered on 07/16/18at 18:21; Start 07/14/18 at 22:00; Stop 07/16/18 at 19:54; Status DC Sertraline HCl (Zoloft) 100 mg DAILY PO Last administered on 07/23/18 13:17; Start 07/15/18 at 09:00 Phytonadione (Mephyton Oral Soln) 5 mg 1X ONCE PO Last administered on at 22:14; Start 07/14/18 at 22:00; Stop 07/14/18 at 22:01; Status DC Vitamin B Complex (Folbic Tablet) 1 tab DAILY PO Last administered on at 13:17; Start 07/15/18 at 09:00 Albuterol/ Ipratropium (Duoneb) 3 ml RTBID NEB Last administered on 07/26/18 08 :57; Start 07/15/18 at 08:00 Sodium Chloride 1,000 ml @ 1,000 mls/hr Q1H PRN IV hypotension; Start 07/15/18 at 10:48; Stop 07/15/18 at 16:47; Status DC Albumin Human 200 ml @ 200 mls/hr 1X PRN PRN IV Hypotension; Start 07/15/18 at 11:00; Stop 07/15/18 at 16:59; Status DC Sodium Chloride 1,000 ml @ 400 mls/hr Q2H30M PRN IV PATENCY; Start 07/15/18 at 10:48; Stop 07/15/18 at 22:47; Status DC Info (PHARMACY MONITORING -- do not chart) 1 each PRN DAILY PRN MC SEE COMMENTS ; Start 07/15/18 at 11:00; Status UNV Info (PHARMACY MONITORING -- do not chart) 1 each PRN DAILY PRN MC SEE COMMENTS ; Start 07/15/18 at 11:00; Stop 07/22/18 at 14:31; Status DC Vancomycin HCl 500 mg/Sodium Chloride 100 ml @ 100 mls/hr QTUTHSA IV Last administered on 07/17/18at 16:44; Start 07/17/18 at 16:00; Stop 07/18/18 at 15:41 ; Status DC Lactobacillus Rhamnosus (Culturelle) 1 cap BID PO Last administered on at 20:54; Start 07/16/18 at 21:00 Clotrimazole (Mycelex) 10 mg 5XDAY MM Last administered on 07/26/18 05:27; Start 07/16/18 at 14:00 Ropinirole HCl (Requip) 3 mg DAILY PO Last administered on 07/23/18at 13:17; Start 07/17/18 at 09:00 Ropinirole HCl (Requip) 2 mg QHS PO Last administered on 07/25/18at 20:53; Start 07/16/18 at 21:00 Ropinirole HCl (Requip) 1 mg PRN QEVNG PRN PO RLS Last administered on at 21:06; Start 07/16/18 at 20:00 Vancomycin HCl (Vancomycin Oral Solution) 125 mg Q6HRS PO Last administered on 07/26/18at 05:27; Start 07/17/18 at 00:00 Sodium Chloride 1,000 ml @ 1,000 mls/hr Q1H PRN IV hypotension; Start 07/17/18 at 14:55; Stop 07/17/18 at 20:54; Status DC Sodium Chloride 1,000 ml @ 400 mls/hr Q2H30M PRN IV PATENCY; Start 07/17/18 at 14:55; Stop 07/18/18 at 02:54; Status DC Info (PHARMACY MONITORING -- do not chart) 1 each PRN DAILY PRN MC SEE COMMENTS ; Start 07/17/18 at 15:00; Stop 07/17/18 at 15:00; Status DC Info (PHARMACY MONITORING -- do not chart) 1 each PRN DAILY PRN MC SEE COMMENTS ; Start 07/17/18 at 15:00; Stop 07/17/18 at 15:00; Status DC Sodium Chloride 1,000 ml @ 1,000 mls/hr Q1H PRN IV hypotension; Start 07/18/18 at 11:30; Stop 07/18/18 at 17:29; Status DC Sodium Chloride 1,000 ml @ 400 mls/hr Q2H30M PRN IV PATENCY; Start 07/18/18 at 11:30; Stop 07/18/18 at 23:29; Status DC Info (PHARMACY MONITORING -- do not chart) 1 each PRN DAILY PRN MC SEE COMMENTS ; Start 07/18/18 at 12:30; Status UNV Info (PHARMACY MONITORING -- do not chart) 1 each PRN DAILY PRN MC SEE COMMENTS ; Start 07/18/18 at 12:30; Status UNV Vancomycin HCl 500 mg/Sodium Chloride 100 ml @ 100 mls/hr 1X ONCE IV Last administered on 07/18/18at 16:40; Start 07/18/18 at 16:00; Stop 07/18/18 at 16:59 ; Status DC Amino Acids/ Glycerin/ Electrolytes 1,000 ml @ 80 mls/hr [id number] IV Last administered on 07/26/18at 05:29; Start 07/19/18 at 11:45 Potassium Chloride (Klor-Con) 40 meq AFTRNOON PO Last administered on at 15:10; Start 07/19/18 at 13:00 Vancomycin HCl 500 mg/Sodium Chloride 100 ml @ 100 mls/hr 1X ONCE IV ; Start 07/21/18 at 16:00; Stop 07/21/18 at 16:59; Status Cancel Acetaminophen/ Hydrocodone Bitart (Lortab 5/325) 1 tab PRN Q6HRS PRN PO SEVERE PAIN; Start 07/19/18 at 20:00 Sodium Chloride 1,000 ml @ 1,000 mls/hr Q1H PRN IV hypotension; Start 07/21/18 at 12:29; Stop 07/21/18 at 18:28; Status DC Sodium Chloride (Normal Saline Flush) 10 ml 1X PRN PRN IV AP catheter pack; Start 07/21/18 at 12:30; Stop 07/22/18 at 12:29; Status DC Sodium Chloride (Normal Saline Flush) 10 ml 1X PRN PRN IV PILATES COORDINATOR catheter pack; Start 07/21/18 at 12:30; Stop 07/22/18 at 12:29; Status DC Sodium Chloride 1,000 ml @ 400 mls/hr Q2H30M PRN IV PATENCY; Start 07/21/18 at 12:29; Stop 07/22/18 at 00:28; Status DC Info (PHARMACY MONITORING -- do not chart) 1 each PRN DAILY PRN MC SEE COMMENTS ; Start 07/21/18 at 12:30; Status UNV Info (PHARMACY MONITORING -- do not chart) 1 each PRN DAILY PRN MC SEE COMMENTS ; Start 07/21/18 at 12:30; Status Cancel Vancomycin HCl 750 mg/Sodium Chloride 250 ml @ 250 mls/hr 1X ONCE IV ; Start 07/21/18 at 16:00; Stop 07/21/18 at 16:59; Status Cancel Vancomycin HCl 500 mg/Sodium Chloride 100 ml @ 100 mls/hr 1X ONCE IV Last administered on 07/21/18at 21:35; Start 07/21/18 at 18:30; Stop 07/21/18 at 19:29 ; Status DC Lidocaine/ Epinephrine (LIDOCAINE 1%-EPI 1:100,000 Multi-Dose) 20 ml STK-MED ONCE .ROUTE ; Start 07/22/18 at 11:46; Stop 07/22/18 at 11:47; Status DC Cefazolin Sodium 50 ml @ As Directed STK-MED ONCE IV ; Start 07/22/18 at 12:45; Stop 07/22/18 at 12:46; Status DC Midazolam HCl (Versed) 2 mg STK-MED ONCE .ROUTE ; Start 07/22/18 at 12:45; Stop 07/22/18 at 12:46; Status DC Fentanyl Citrate (Fentanyl 2ml Vial) 100 mcg STK-MED ONCE .ROUTE ; Start at 12:45; Stop 07/22/18 at 12:46; Status DC Vancomycin HCl 500 mg/Sodium Chloride 100 ml @ 100 mls/hr QTUTHSA IV Last administered on 07/24/18at 18:27; Start 07/22/18 at 16:00 Midazolam HCl (Versed) 2 mg 1X ONCE IV Last administered on 07/22/18at 13:28; Start 07/22/18 at 13:30; Stop 07/22/18 at 13:31; Status DC Fentanyl Citrate (Fentanyl 2ml Vial) 100 mcg 1X ONCE IV Last administered on at 13:27; Start 07/22/18 at 13:30; Stop 07/22/18 at 13:31; Status DC Lidocaine HCl (Lidocaine 1% 20ml Vial) 20 ml 1X ONCE INJ Last administered on 07/22/18at 13:27; Start 07/22/18 at 13:30; Stop 07/22/18 at 13:31; Status DC Ceftaroline Fosamil 400 mg/ Sodium Chloride 250 ml @ 250 mls/hr Q12HR IV Last administered on 07/25/18at 20:52; Start 07/22/18 at 14:00 Darbepoetin Avery (Aranesp) 60 mcg [id number] SQ Last administered on 07/22/18at 21 :49; Start 07/22/18 at 21:00 Sodium Chloride 1,000 ml @ 1,000 mls/hr Q1H PRN IV hypotension; Start 07/22/18 at 15:20; Stop 07/22/18 at 21:19; Status DC Albumin Human 200 ml @ 200 mls/hr 1X PRN PRN IV Hypotension; Start 07/22/18 at 15:30; Stop 07/22/18 at 21:29; Status DC Acetaminophen (Tylenol) 500 mg 1X PRN PRN PO MILD PAIN / TEMP; Start 07/22/18 at 15:30; Stop 07/23/18 at 15:29; Status DC Diphenhydramine HCl (Benadryl) 25 mg 1X PRN PRN IV ITCHING; Start 07/22/18 at 15:30; Stop 07/23/18 at 15:29; Status DC Diphenhydramine HCl (Benadryl) 25 mg 1X PRN PRN IV ITCHING; Start 07/22/18 at 15:30; Stop 07/23/18 at 15:29; Status DC Sodium Chloride (Normal Saline Flush) 10 ml 1X PRN PRN IV AP catheter pack; Start 07/22/18 at 15:30; Stop 07/23/18 at 15:29; Status DC Sodium Chloride (Normal Saline Flush) 10 ml 1X PRN PRN IV PILATES COORDINATOR catheter pack; Start 07/22/18 at 15:30; Stop 07/23/18 at 15:29; Status DC Sodium Chloride 1,000 ml @ 400 mls/hr Q2H30M PRN IV PATENCY; Start 07/22/18 at 15:20; Stop 07/23/18 at 03:19; Status DC Info (PHARMACY MONITORING -- do not chart) 1 each PRN DAILY PRN MC SEE COMMENTS ; Start 07/22/18 at 15:30; Stop 07/22/18 at 15:30; Status DC Sodium Chloride 1,000 ml @ 1,000 mls/hr Q1H PRN IV hypotension; Start 07/23/18 at 07:00; Stop 07/23/18 at 12:59; Status DC Sodium Chloride 1,000 ml @ 400 mls/hr Q2H30M PRN IV PATENCY; Start 07/23/18 at 07:00; Stop 07/23/18 at 18:59; Status DC Info (PHARMACY MONITORING -- do not chart) 1 each PRN DAILY PRN MC SEE COMMENTS ; Start 07/23/18 at 09:00; Status UNV Info (PHARMACY MONITORING -- do not chart) 1 each PRN DAILY PRN MC SEE COMMENTS ; Start 07/23/18 at 09:00 Labetalol HCl (Normodyne Iv Push) 10 mg PRN Q2HR PRN IVP HYPERTENSION, SEE COMMENTS; Start 07/23/18 at 09:30 Acetaminophen (Tylenol) 500 mg PRN Q6HRS PRN PO MILD PAIN / TEMP; Start at 09:30 Ondansetron HCl (Zofran) 4 mg PRN Q6HRS PRN IV NAUSEA/VOMITING; Start 07/23/18 at 09:30 Ondansetron HCl (Zofran Odt) 4 mg PRN Q6HRS PRN PO NAUSEA/VOMITING; Start 07/23 at 09:30 Tramadol HCl (Ultram) 50 mg PRN Q6HRS PRN PO MODERATE PAIN; Start 07/23/18 at 09:30 Amlodipine Besylate (Norvasc) 10 mg DAILY PO ; Start 07/23/18 at 09:00 Ondansetron HCl (Zofran) 4 mg PRN Q6HRS PRN IV NAUSEA/VOMITING; Start 07/24/18 at 07:00; Stop 07/25/18 at 06:59; Status DC Fentanyl Citrate (Fentanyl 2ml Vial) 25 mcg PRN Q5MIN PRN IV MILD PAIN; Start 07/24/18 at 07:00; Stop 07/25/18 at 06:59; Status DC Fentanyl Citrate (Fentanyl 2ml Vial) 50 mcg PRN Q5MIN PRN IV MODERATE TO SEVERE PAIN; Start 07/24/18 at 07:00; Stop 07/25/18 at 06:59; Status DC Ringer's Solution 1,000 ml @ 30 mls/hr Q24H IV ; Start 07/24/18 at 07:00; Stop 07/24/18 at 18:59; Status DC Lidocaine HCl (Xylocaine-Mpf 1% 2ml Vial) 2 ml PRN 1X PRN ID PRIOR TO IV START ; Start 07/24/18 at 07:00; Stop 07/25/18 at 06:59; Status DC Prochlorperazine Edisylate (Compazine) 5 mg PACU PRN PRN IV NAUSEA, MRX1; Start 07/24/18 at 07:00; Stop 07/25/18 at 06:59; Status DC Vancomycin HCl 500 mg/Sodium Chloride 100 ml @ 100 mls/hr ONCE ONCE IV Last administered on 07/23/18at 17:23; Start 07/23/18 at 16:00; Stop 07/23/18 at 16:59 ; Status DC Nystatin (Mycostatin) 1 rolly BID TP Last administered on 07/25/18at 20:54; Start 07/23/18 at 21:00 Benzocaine (Hurricaine One) 1 spray STK-MED ONCE .ROUTE ; Start 07/24/18 at 11: 49; Stop 07/24/18 at 11:50; Status Cancel Lidocaine HCl (Viscous Lidocaine) 15 ml STK-MED ONCE .ROUTE ; Start 07/24/18 at 11:49; Stop 07/24/18 at 11:50; Status DC Lidocaine HCl (Xylocaine 2% Topical 5gm Tube) 1 rolly 1X ONCE TP ; Start at 12:00; Stop 07/24/18 at 12:01; Status DC Lidocaine HCl (Viscous Lidocaine) 15 ml 1X ONCE SWSW Last administered on 07/24at 13:12; Start 07/24/18 at 12:00; Stop 07/24/18 at 12:01; Status DC Benzocaine (Hurricaine One) 3 spray 1X ONCE MM Last administered on 07/24/18at 13:11; Start 07/24/18 at 12:00; Stop 07/24/18 at 12:01; Status DC Lidocaine HCl (Glydo (Lidocaine) Jelly) 1 rolly 1X ONCE MM Last administered on 07/24/18at 13:10; Start 07/24/18 at 12:00; Stop 07/24/18 at 12:01; Status DC Sodium Chloride 1,000 ml @ 1,000 mls/hr Q1H PRN IV hypotension; Start 07/24/18 at 13:36; Stop 07/24/18 at 19:35; Status DC Albumin Human 200 ml @ 200 mls/hr 1X PRN PRN IV Hypotension; Start 07/24/18 at 13:45; Stop 07/24/18 at 19:44; Status DC Acetaminophen (Tylenol) 500 mg 1X PRN PRN PO MILD PAIN / TEMP; Start 07/24/18 at 13:45; Stop 07/25/18 at 13:44; Status DC Diphenhydramine HCl (Benadryl) 25 mg 1X PRN PRN IV ITCHING; Start 07/24/18 at 13:45; Stop 07/25/18 at 13:44; Status DC Diphenhydramine HCl (Benadryl) 25 mg 1X PRN PRN IV ITCHING; Start 07/24/18 at 13:45; Stop 07/25/18 at 13:44; Status DC Sodium Chloride (Normal Saline Flush) 10 ml 1X PRN PRN IV AP catheter pack; Start 07/24/18 at 13:45; Stop 07/25/18 at 13:44; Status DC Sodium Chloride (Normal Saline Flush) 10 ml 1X PRN PRN IV PILATES COORDINATOR catheter pack; Start 07/24/18 at 13:45; Stop 07/25/18 at 13:44; Status DC Sodium Chloride 1,000 ml @ 400 mls/hr Q2H30M PRN IV PATENCY; Start 07/24/18 at 13:36; Stop 07/25/18 at 01:35; Status DC Info (PHARMACY MONITORING -- do not chart) 1 each PRN DAILY PRN MC SEE COMMENTS ; Start 07/24/18 at 13:45; Stop 07/24/18 at 13:45; Status DC Propofol (Diprivan) 200 mg STK-MED ONCE IV ; Start 07/24/18 at 13:00; Stop at 08:16; Status DC Loperamide HCl (Imodium) 2 mg 1X ONCE PO Last administered on 07/25/18at 12:47; Start 07/25/18 at 11:15; Stop 07/25/18 at 11:16; Status DC Active Scripts Active Reported Dialyvite Tablet (Folic Acid/Vitamin B Comp W-C) 1 Each Tablet 1 Each PO QPM QPM @ 1900 [hectorol] QTUTHSA [epogen] QTUTHSA Mirtazapine 15 Mg Tablet 1 Tab PO QHS Zoloft (Sertraline Hcl) 100 Mg Tablet 1 Tab PO DAILY Requip (Ropinirole Hcl) 1 Mg Tablet 3 Mg PO BID Mirtazapine 15 Mg Tablet 1 Tab PO QHS Megestrol Acetate 40 Mg Tablet 40 Mg PO BID Vitals/I & O Vital Sign - Last 24 Hours 07/25/18 07/25/18 07/25/18 07/25/18 11:00 15:00 19:59 20:00 Temp 97.9 98.4 97.4 97.9 98.4 97.4 Pulse 95 91 93 Resp 16 20 20 B/P (MAP) 157/99 (118) 122/75 (91) 149/94 (112) Pulse Ox 100 100 98 O2 Delivery Room Air Room Air Room Air Room Air 07/25/18 07/26/18 07/26/18 07/26/18 23:59 03:59 07:00 09:03 Temp 97.4 98.2 98.1 97.4 98.2 98.1 Pulse 93 90 93 Resp 19 20 20 B/P (MAP) 135/97 (110) 176/94 (121) 156/104 (121) Pulse Ox 93 95 96 100 O2 Delivery Room Air Room Air Room Air Room Air Intake and Output 07/25/18 07/25/18 07/26/18 14:59 22:59 06:59 Intake Total 1270 ml 0 ml 240 ml Balance 1270 ml 0 ml 240 ml Nutrition Consultation Dietary Evaluation: Recommendations by RD: PPN/TPN, Add supplement feedings Comments: day 5 PPN - continue until po intake improves to > 50% meals continue nepro bid encourage po intake Expected Outcomes/Goals: po intake to improve to 50% of meals- goal ongoing Interpretation of weight loss: >1-2% in 1 week Malnutrition Findings: Food and Nutrition Intake (Sev: <50% est energy req 5days Body Fat Depletion (Non Severe: Mod to Severe Weight Status: Underweight LIBERTY MUNGUIA MD Jul 26, 2018 10:33
[2018-07-26] MEDS: CEFTAROLINE FOSAMIL IV SCH ×2 (10:34→21:23)
[2018-07-26] MEDS: NORMAL SALINE IV SCH ×2 (10:34→21:23)
[2018-07-26] MEDS: rOPINIRole 1 MG TABLET. PO SCH ×3 (10:36→21:24)
[2018-07-26] MEDS: MEGESTROL 20 MG TABLET. PO SCH ×3 (10:37→21:24)
[2018-07-26] MEDS: LACTOBACILLUS RHAMNOSUS GG 1 CAPSULE. PO SCH ×3 (10:37→21:24)
[2018-07-26] MEDS: amLODIPine BESYLATE 10 MG TABLET PO SCH (10:37)
[2018-07-26] MEDS: SERTRALINE 50 MG TABLET. PO SCH (10:37)
[2018-07-26] MEDS: VITAMIN B12,B9,B6 COMPLEX 1 TABLET. PO SCH (10:37)
[2018-07-26] MEDS: NYSTATIN 100,000 UNIT/GM TOPICAL CREAM 15GM TUBE. TP SCH ×2 (10:39→21:24)
[2018-07-26] MEDS: POTASSIUM CHLORIDE 20 MEQ TABLET.ER. PO SCH (13:00)
--- NOTE | 2018-07-26 14:36 | PDOC ---
PROGRESS NOTES Subjective Subjective SEEN IN FOLLOW UP OF ESRD Objective Objective Vital Signs Date Time Temp Pulse Resp B/P (MAP) Pulse Ox O2 Delivery O2 Flow Rate FiO2 07/26/18 10:37 93 156/104 07/26/18 09:03 100 Room Air 07/26/18 07:00 98.1 20 98.1 07/24/18 13:50 4.0 Intake and Output 07/26/18 06:59 Intake Total 1510 ml Balance 1510 ml Intake Oral 260 ml IV Total 1250 ml # Voids 2 # Bowel Movements 1 Assessment Assessment Problems Medical Problems: (1) End stage renal disease Status: Acute (2) Generalized weakness Status: Acute Plan Plan of Care [facility]ATH NONFUNCTIONAL. NO URGENT NEED FOR DIALYSIS. FOR NEW PERMCATH SATURDAY Comment Review of Relevant I have reviewed the following items linda (where applicable) has been applied. Labs Laboratory Tests Test 07/25/18 05:35 07/26/18 05:33 White Blood Count 13.0 x10^3/uL (4.0-11.0) 15.5 x10^3/uL (4.0-11.0) Red Blood Count 2.70 x10^6/uL (3.50-5.40) 2.84 x10^6/uL (3.50-5.40) Hemoglobin 7.3 g/dL (12.0-15.5) 7.8 g/dL (12.0-15.5) Hematocrit 23.6 % (36.0-47.0) 24.3 % (36.0-47.0) Mean Corpuscular Volume 88 fL (79-100) 86 fL (79-100) Mean Corpuscular Hemoglobin 27 pg (25-35) 28 pg (25-35) Mean Corpuscular Hemoglobin Concent 31 g/dL (31-37) 32 g/dL (31-37) Red Cell Distribution Width 17.9 % (11.5-14.5) 17.6 % (11.5-14.5) Platelet Count 446 x10^3/uL (140-400) 422 x10^3/uL (140-400) Neutrophils (%) (Auto) 78 % (31-73) Lymphocytes (%) (Auto) 12 % (24-48) Monocytes (%) (Auto) 7 % (0-9) Eosinophils (%) (Auto) 2 % (0-3) Basophils (%) (Auto) 1 % (0-3) Neutrophils # (Auto) 10.1 x10^3uL (1.8-7.7) Lymphocytes # (Auto) 1.6 x10^3/uL (1.0-4.8) Monocytes # (Auto) 0.9 x10^3/uL (0.0-1.1) Eosinophils # (Auto) 0.2 x10^3/uL (0.0-0.7) Basophils # (Auto) 0.2 x10^3/uL (0.0-0.2) Sodium Level 142 mmol/L (136-145) 134 mmol/L (136-145) Potassium Level 3.4 mmol/L (3.5-5.1) 3.9 mmol/L (3.5-5.1) Chloride Level 105 mmol/L (98-107) 100 mmol/L (98-107) Carbon Dioxide Level 30 mmol/L (21-32) 25 mmol/L (21-32) Anion Gap 7 (6-14) 9 (6-14) Blood Urea Nitrogen 6 mg/dL (7-20) 13 mg/dL (7-20) Creatinine 1.3 mg/dL (0.6-1.0) 2.0 mg/dL (0.6-1.0) Estimated GFR (Cockcroft-Gault) 40.4 24.6 Glucose Level 96 mg/dL (70-99) 91 mg/dL (70-99) Calcium Level 8.8 mg/dL (8.5-10.1) 9.2 mg/dL (8.5-10.1) Phosphorus Level 1.7 mg/dL (2.6-4.7) 2.2 mg/dL (2.6-4.7) Albumin 1.3 g/dL (3.4-5.0) 1.3 g/dL (3.4-5.0) Laboratory Tests Test 07/26/18 05:33 White Blood Count 15.5 x10^3/uL (4.0-11.0) Red Blood Count 2.84 x10^6/uL (3.50-5.40) Hemoglobin 7.8 g/dL (12.0-15.5) Hematocrit 24.3 % (36.0-47.0) Mean Corpuscular Volume 86 fL (79-100) Mean Corpuscular Hemoglobin 28 pg (25-35) Mean Corpuscular Hemoglobin Concent 32 g/dL (31-37) Red Cell Distribution Width 17.6 % (11.5-14.5) Platelet Count 422 x10^3/uL (140-400) Sodium Level 134 mmol/L (136-145) Potassium Level 3.9 mmol/L (3.5-5.1) Chloride Level 100 mmol/L (98-107) Carbon Dioxide Level 25 mmol/L (21-32) Anion Gap 9 (6-14) Blood Urea Nitrogen 13 mg/dL (7-20) Creatinine 2.0 mg/dL (0.6-1.0) Estimated GFR (Cockcroft-Gault) 24.6 Glucose Level 91 mg/dL (70-99) Calcium Level 9.2 mg/dL (8.5-10.1) Phosphorus Level 2.2 mg/dL (2.6-4.7) Albumin 1.3 g/dL (3.4-5.0) Microbiology 07/24/18 Blood Culture - Preliminary, Resulted NO GROWTH AFTER 1 DAY 07/14/18 Urine Culture - Final, Complete 07/14/18 Urine Culture Result 1 (MARYANN) - Final, Complete Medications Current Medications Piperacillin Sod/ Tazobactam Sod 4.5 gm/Sodium Chloride 100 ml @ 200 mls/hr 1X ONCE IV Last administered on 07/14/18at 15:58; Start 07/14/18 at 15:00; Stop 07/14/18 at 15:29; Status DC Vancomycin HCl (Vanco Per Pharmacy) 1 each PRN DAILY PRN MC SEE COMMENTS Last administered on 07/25/18at 15:37; Start 07/14/18 at 14:45 Vancomycin HCl 1.25 gm/Sodium Chloride 250 ml @ 166.667 mls/hr 1X ONCE IV Last administered on 07/14/18at 18:10; Start 07/14/18 at 15:00; Stop 07/14/18 at 16:29; Status DC Ondansetron HCl (Zofran) 4 mg PRN Q8HRS PRN IV NAUSEA/VOMITING; Start 07/14/18 at 17:15; Stop 07/15/18 at 17:14; Status DC Morphine Sulfate (Morphine Sulfate) 2 mg PRN Q2HR PRN IV PAIN; Start 07/14/18 at 17:15; Stop 07/15/18 at 17:14; Status DC Acetaminophen (Tylenol) 650 mg PRN Q4HRS PRN PO FEVER; Start 07/14/18 at 17:15 ; Stop 07/15/18 at 17:14; Status DC Vancomycin HCl (Vancomycin Random Level) 1 each 1X ONCE MC ; Start 07/15/18 at 06:00; Stop 07/15/18 at 06:01; Status DC Vitamin B Complex/ Vitamin C (Dinorah-Ralph) 1 tab QPM PO Last administered on 17:59; Start 07/15/18 at 18:00 Megestrol Acetate (Megace) 40 mg BID PO Last administered on 07/26/18 10:37; Start 07/15/18 at 09:00 Mirtazapine (Remeron) 15 mg QHS PO Last administered on 07/25/18 20:54; Start 07/14/18 at 22:00 Non-Formulary Medication (Mirtazapine ) 1 tab QHS PO ; Start 07/15/18 at 21:00; Status UNV Ropinirole HCl (Requip) 3 mg BID PO Last administered on 07/16/18at 18:21; Start 07/14/18 at 22:00; Stop 07/16/18 at 19:54; Status DC Sertraline HCl (Zoloft) 100 mg DAILY PO Last administered on 07/26/18 10:37; Start 07/15/18 at 09:00 Phytonadione (Mephyton Oral Soln) 5 mg 1X ONCE PO Last administered on 22:14; Start 07/14/18 at 22:00; Stop 07/14/18 at 22:01; Status DC Vitamin B Complex (Folbic Tablet) 1 tab DAILY PO Last administered on 07/26/18 10:37; Start 07/15/18 at 09:00 Albuterol/ Ipratropium (Duoneb) 3 ml RTBID NEB Last administered on 07/26/18 08 :57; Start 07/15/18 at 08:00 Sodium Chloride 1,000 ml @ 1,000 mls/hr Q1H PRN IV hypotension; Start 07/15/18 at 10:48; Stop 07/15/18 at 16:47; Status DC Albumin Human 200 ml @ 200 mls/hr 1X PRN PRN IV Hypotension; Start 07/15/18 at 11:00; Stop 07/15/18 at 16:59; Status DC Sodium Chloride 1,000 ml @ 400 mls/hr Q2H30M PRN IV PATENCY; Start 07/15/18 at 10:48; Stop 07/15/18 at 22:47; Status DC Info (PHARMACY MONITORING -- do not chart) 1 each PRN DAILY PRN MC SEE COMMENTS ; Start 07/15/18 at 11:00; Status UNV Info (PHARMACY MONITORING -- do not chart) 1 each PRN DAILY PRN MC SEE COMMENTS ; Start 07/15/18 at 11:00; Stop 07/22/18 at 14:31; Status DC Vancomycin HCl 500 mg/Sodium Chloride 100 ml @ 100 mls/hr QTUTHSA IV Last administered on 07/17/18at 16:44; Start 07/17/18 at 16:00; Stop 07/18/18 at 15:41 ; Status DC Lactobacillus Rhamnosus (Culturelle) 1 cap BID PO Last administered on 10:37; Start 07/16/18 at 21:00 Clotrimazole (Mycelex) 10 mg 5XDAY MM Last administered on 07/26/18 10:37; Start 07/16/18 at 14:00 Ropinirole HCl (Requip) 3 mg DAILY PO Last administered on 07/26/18 10:36; Start 07/17/18 at 09:00 Ropinirole HCl (Requip) 2 mg QHS PO Last administered on 07/25/18at 20:53; Start 07/16/18 at 21:00 Ropinirole HCl (Requip) 1 mg PRN QEVNG PRN PO RLS Last administered on at 21:06; Start 07/16/18 at 20:00 Vancomycin HCl (Vancomycin Oral Solution) 125 mg Q6HRS PO Last administered on 07/26/18 11:51; Start 07/17/18 at 00:00 Sodium Chloride 1,000 ml @ 1,000 mls/hr Q1H PRN IV hypotension; Start 07/17/18 at 14:55; Stop 07/17/18 at 20:54; Status DC Sodium Chloride 1,000 ml @ 400 mls/hr Q2H30M PRN IV PATENCY; Start 07/17/18 at 14:55; Stop 07/18/18 at 02:54; Status DC Info (PHARMACY MONITORING -- do not chart) 1 each PRN DAILY PRN MC SEE COMMENTS ; Start 07/17/18 at 15:00; Stop 07/17/18 at 15:00; Status DC Info (PHARMACY MONITORING -- do not chart) 1 each PRN DAILY PRN MC SEE COMMENTS ; Start 07/17/18 at 15:00; Stop 07/17/18 at 15:00; Status DC Sodium Chloride 1,000 ml @ 1,000 mls/hr Q1H PRN IV hypotension; Start 07/18/18 at 11:30; Stop 07/18/18 at 17:29; Status DC Sodium Chloride 1,000 ml @ 400 mls/hr Q2H30M PRN IV PATENCY; Start 07/18/18 at 11:30; Stop 07/18/18 at 23:29; Status DC Info (PHARMACY MONITORING -- do not chart) 1 each PRN DAILY PRN MC SEE COMMENTS ; Start 07/18/18 at 12:30; Status UNV Info (PHARMACY MONITORING -- do not chart) 1 each PRN DAILY PRN MC SEE COMMENTS ; Start 07/18/18 at 12:30; Status UNV Vancomycin HCl 500 mg/Sodium Chloride 100 ml @ 100 mls/hr 1X ONCE IV Last administered on 07/18/18at 16:40; Start 07/18/18 at 16:00; Stop 07/18/18 at 16:59 ; Status DC Amino Acids/ Glycerin/ Electrolytes 1,000 ml @ 80 mls/hr [id number] IV Last administered on 07/26/18at 05:29; Start 07/19/18 at 11:45 Potassium Chloride (Klor-Con) 40 meq AFTRNOON PO Last administered on at 15:10; Start 07/19/18 at 13:00 Vancomycin HCl 500 mg/Sodium Chloride 100 ml @ 100 mls/hr 1X ONCE IV ; Start 07/21/18 at 16:00; Stop 07/21/18 at 16:59; Status Cancel Acetaminophen/ Hydrocodone Bitart (Lortab 5/325) 1 tab PRN Q6HRS PRN PO SEVERE PAIN; Start 07/19/18 at 20:00 Sodium Chloride 1,000 ml @ 1,000 mls/hr Q1H PRN IV hypotension; Start 07/21/18 at 12:29; Stop 07/21/18 at 18:28; Status DC Sodium Chloride (Normal Saline Flush) 10 ml 1X PRN PRN IV AP catheter pack; Start 07/21/18 at 12:30; Stop 07/22/18 at 12:29; Status DC Sodium Chloride (Normal Saline Flush) 10 ml 1X PRN PRN IV ZIPPER JOINER catheter pack; Start 07/21/18 at 12:30; Stop 07/22/18 at 12:29; Status DC Sodium Chloride 1,000 ml @ 400 mls/hr Q2H30M PRN IV PATENCY; Start 07/21/18 at 12:29; Stop 07/22/18 at 00:28; Status DC Info (PHARMACY MONITORING -- do not chart) 1 each PRN DAILY PRN MC SEE COMMENTS ; Start 07/21/18 at 12:30; Status UNV Info (PHARMACY MONITORING -- do not chart) 1 each PRN DAILY PRN MC SEE COMMENTS ; Start 07/21/18 at 12:30; Status Cancel Vancomycin HCl 750 mg/Sodium Chloride 250 ml @ 250 mls/hr 1X ONCE IV ; Start 07/21/18 at 16:00; Stop 07/21/18 at 16:59; Status Cancel Vancomycin HCl 500 mg/Sodium Chloride 100 ml @ 100 mls/hr 1X ONCE IV Last administered on 07/21/18at 21:35; Start 07/21/18 at 18:30; Stop 07/21/18 at 19:29 ; Status DC Lidocaine/ Epinephrine (LIDOCAINE 1%-EPI 1:100,000 Multi-Dose) 20 ml STK-MED ONCE .ROUTE ; Start 07/22/18 at 11:46; Stop 07/22/18 at 11:47; Status DC Cefazolin Sodium 50 ml @ As Directed STK-MED ONCE IV ; Start 07/22/18 at 12:45; Stop 07/22/18 at 12:46; Status DC Midazolam HCl (Versed) 2 mg STK-MED ONCE .ROUTE ; Start 07/22/18 at 12:45; Stop 07/22/18 at 12:46; Status DC Fentanyl Citrate (Fentanyl 2ml Vial) 100 mcg STK-MED ONCE .ROUTE ; Start at 12:45; Stop 07/22/18 at 12:46; Status DC Vancomycin HCl 500 mg/Sodium Chloride 100 ml @ 100 mls/hr QTUTHSA IV Last administered on 07/24/18at 18:27; Start 07/22/18 at 16:00 Midazolam HCl (Versed) 2 mg 1X ONCE IV Last administered on 07/22/18at 13:28; Start 07/22/18 at 13:30; Stop 07/22/18 at 13:31; Status DC Fentanyl Citrate (Fentanyl 2ml Vial) 100 mcg 1X ONCE IV Last administered on at 13:27; Start 07/22/18 at 13:30; Stop 07/22/18 at 13:31; Status DC Lidocaine HCl (Lidocaine 1% 20ml Vial) 20 ml 1X ONCE INJ Last administered on 07/22/18at 13:27; Start 07/22/18 at 13:30; Stop 07/22/18 at 13:31; Status DC Ceftaroline Fosamil 400 mg/ Sodium Chloride 250 ml @ 250 mls/hr Q12HR IV Last administered on 07/26/18at 10:34; Start 07/22/18 at 14:00 Darbepoetin Avery (Aranesp) 60 mcg [id number] SQ Last administered on 07/22/18at 21 :49; Start 07/22/18 at 21:00 Sodium Chloride 1,000 ml @ 1,000 mls/hr Q1H PRN IV hypotension; Start 07/22/18 at 15:20; Stop 07/22/18 at 21:19; Status DC Albumin Human 200 ml @ 200 mls/hr 1X PRN PRN IV Hypotension; Start 07/22/18 at 15:30; Stop 07/22/18 at 21:29; Status DC Acetaminophen (Tylenol) 500 mg 1X PRN PRN PO MILD PAIN / TEMP; Start 07/22/18 at 15:30; Stop 07/23/18 at 15:29; Status DC Diphenhydramine HCl (Benadryl) 25 mg 1X PRN PRN IV ITCHING; Start 07/22/18 at 15:30; Stop 07/23/18 at 15:29; Status DC Diphenhydramine HCl (Benadryl) 25 mg 1X PRN PRN IV ITCHING; Start 07/22/18 at 15:30; Stop 07/23/18 at 15:29; Status DC Sodium Chloride (Normal Saline Flush) 10 ml 1X PRN PRN IV AP catheter pack; Start 07/22/18 at 15:30; Stop 07/23/18 at 15:29; Status DC Sodium Chloride (Normal Saline Flush) 10 ml 1X PRN PRN IV ZIPPER JOINER catheter pack; Start 07/22/18 at 15:30; Stop 07/23/18 at 15:29; Status DC Sodium Chloride 1,000 ml @ 400 mls/hr Q2H30M PRN IV PATENCY; Start 07/22/18 at 15:20; Stop 07/23/18 at 03:19; Status DC Info (PHARMACY MONITORING -- do not chart) 1 each PRN DAILY PRN MC SEE COMMENTS ; Start 07/22/18 at 15:30; Stop 07/22/18 at 15:30; Status DC Sodium Chloride 1,000 ml @ 1,000 mls/hr Q1H PRN IV hypotension; Start 07/23/18 at 07:00; Stop 07/23/18 at 12:59; Status DC Sodium Chloride 1,000 ml @ 400 mls/hr Q2H30M PRN IV PATENCY; Start 07/23/18 at 07:00; Stop 07/23/18 at 18:59; Status DC Info (PHARMACY MONITORING -- do not chart) 1 each PRN DAILY PRN MC SEE COMMENTS ; Start 07/23/18 at 09:00; Status UNV Info (PHARMACY MONITORING -- do not chart) 1 each PRN DAILY PRN MC SEE COMMENTS ; Start 07/23/18 at 09:00 Labetalol HCl (Normodyne Iv Push) 10 mg PRN Q2HR PRN IVP HYPERTENSION, SEE COMMENTS; Start 07/23/18 at 09:30 Acetaminophen (Tylenol) 500 mg PRN Q6HRS PRN PO MILD PAIN / TEMP; Start at 09:30 Ondansetron HCl (Zofran) 4 mg PRN Q6HRS PRN IV NAUSEA/VOMITING; Start 07/23/18 at 09:30 Ondansetron HCl (Zofran Odt) 4 mg PRN Q6HRS PRN PO NAUSEA/VOMITING; Start 07/23 at 09:30 Tramadol HCl (Ultram) 50 mg PRN Q6HRS PRN PO MODERATE PAIN; Start 07/23/18 at 09:30 Amlodipine Besylate (Norvasc) 10 mg DAILY PO Last administered on 07/26/18at 10: 37; Start 07/23/18 at 09:00 Ondansetron HCl (Zofran) 4 mg PRN Q6HRS PRN IV NAUSEA/VOMITING; Start 07/24/18 at 07:00; Stop 07/25/18 at 06:59; Status DC Fentanyl Citrate (Fentanyl 2ml Vial) 25 mcg PRN Q5MIN PRN IV MILD PAIN; Start 07/24/18 at 07:00; Stop 07/25/18 at 06:59; Status DC Fentanyl Citrate (Fentanyl 2ml Vial) 50 mcg PRN Q5MIN PRN IV MODERATE TO SEVERE PAIN; Start 07/24/18 at 07:00; Stop 07/25/18 at 06:59; Status DC Ringer's Solution 1,000 ml @ 30 mls/hr Q24H IV ; Start 07/24/18 at 07:00; Stop 07/24/18 at 18:59; Status DC Lidocaine HCl (Xylocaine-Mpf 1% 2ml Vial) 2 ml PRN 1X PRN ID PRIOR TO IV START ; Start 07/24/18 at 07:00; Stop 07/25/18 at 06:59; Status DC Prochlorperazine Edisylate (Compazine) 5 mg PACU PRN PRN IV NAUSEA, MRX1; Start 07/24/18 at 07:00; Stop 07/25/18 at 06:59; Status DC Vancomycin HCl 500 mg/Sodium Chloride 100 ml @ 100 mls/hr ONCE ONCE IV Last administered on 07/23/18at 17:23; Start 07/23/18 at 16:00; Stop 07/23/18 at 16:59 ; Status DC Nystatin (Mycostatin) 1 rolly BID TP Last administered on 07/26/18at 10:39; Start 07/23/18 at 21:00 Benzocaine (Hurricaine One) 1 spray STK-MED ONCE .ROUTE ; Start 07/24/18 at 11: 49; Stop 07/24/18 at 11:50; Status Cancel Lidocaine HCl (Viscous Lidocaine) 15 ml STK-MED ONCE .ROUTE ; Start 07/24/18 at 11:49; Stop 07/24/18 at 11:50; Status DC Lidocaine HCl (Xylocaine 2% Topical 5gm Tube) 1 rolly 1X ONCE TP ; Start at 12:00; Stop 07/24/18 at 12:01; Status DC Lidocaine HCl (Viscous Lidocaine) 15 ml 1X ONCE SWSW Last administered on 07/24at 13:12; Start 07/24/18 at 12:00; Stop 07/24/18 at 12:01; Status DC Benzocaine (Hurricaine One) 3 spray 1X ONCE MM Last administered on 07/24/18at 13:11; Start 07/24/18 at 12:00; Stop 07/24/18 at 12:01; Status DC Lidocaine HCl (Glydo (Lidocaine) Jelly) 1 rolly 1X ONCE MM Last administered on 07/24/18at 13:10; Start 07/24/18 at 12:00; Stop 07/24/18 at 12:01; Status DC Sodium Chloride 1,000 ml @ 1,000 mls/hr Q1H PRN IV hypotension; Start 07/24/18 at 13:36; Stop 07/24/18 at 19:35; Status DC Albumin Human 200 ml @ 200 mls/hr 1X PRN PRN IV Hypotension; Start 07/24/18 at 13:45; Stop 07/24/18 at 19:44; Status DC Acetaminophen (Tylenol) 500 mg 1X PRN PRN PO MILD PAIN / TEMP; Start 07/24/18 at 13:45; Stop 07/25/18 at 13:44; Status DC Diphenhydramine HCl (Benadryl) 25 mg 1X PRN PRN IV ITCHING; Start 07/24/18 at 13:45; Stop 07/25/18 at 13:44; Status DC Diphenhydramine HCl (Benadryl) 25 mg 1X PRN PRN IV ITCHING; Start 07/24/18 at 13:45; Stop 07/25/18 at 13:44; Status DC Sodium Chloride (Normal Saline Flush) 10 ml 1X PRN PRN IV AP catheter pack; Start 07/24/18 at 13:45; Stop 07/25/18 at 13:44; Status DC Sodium Chloride (Normal Saline Flush) 10 ml 1X PRN PRN IV ZIPPER JOINER catheter pack; Start 07/24/18 at 13:45; Stop 07/25/18 at 13:44; Status DC Sodium Chloride 1,000 ml @ 400 mls/hr Q2H30M PRN IV PATENCY; Start 07/24/18 at 13:36; Stop 07/25/18 at 01:35; Status DC Info (PHARMACY MONITORING -- do not chart) 1 each PRN DAILY PRN MC SEE COMMENTS ; Start 07/24/18 at 13:45; Stop 07/24/18 at 13:45; Status DC Propofol (Diprivan) 200 mg STK-MED ONCE IV ; Start 07/24/18 at 13:00; Stop at 08:16; Status DC Loperamide HCl (Imodium) 2 mg 1X ONCE PO Last administered on 07/25/18at 12:47; Start 07/25/18 at 11:15; Stop 07/25/18 at 11:16; Status DC Active Scripts Active Reported Dialyvite Tablet (Folic Acid/Vitamin B Comp W-C) 1 Each Tablet 1 Each PO QPM QPM @ 1900 [hectorol] QTUTHSA [epogen] QTUTHSA Mirtazapine 15 Mg Tablet 1 Tab PO QHS Zoloft (Sertraline Hcl) 100 Mg Tablet 1 Tab PO DAILY Requip (Ropinirole Hcl) 1 Mg Tablet 3 Mg PO BID Mirtazapine 15 Mg Tablet 1 Tab PO QHS Megestrol Acetate 40 Mg Tablet 40 Mg PO BID Vitals/I & O Vital Sign - Last 24 Hours 07/25/18 07/25/18 07/25/18 07/25/18 15:00 19:59 20:00 23:59 Temp 98.4 97.4 97.4 98.4 97.4 97.4 Pulse 91 93 93 Resp 20 20 19 B/P (MAP) 122/75 (91) 149/94 (112) 135/97 (110) Pulse Ox 100 98 93 O2 Delivery Room Air Room Air Room Air Room Air 07/26/18 07/26/18 07/26/18 07/26/18 03:59 07:00 08:00 09:03 Temp 98.2 98.1 98.2 98.1 Pulse 90 93 Resp 20 20 B/P (MAP) 176/94 (121) 156/104 (121) Pulse Ox 95 96 100 O2 Delivery Room Air Room Air Room Air Room Air 07/26/18 10:37 Pulse 93 B/P (MAP) 156/104 Intake and Output 07/25/18 07/25/18 07/26/18 14:59 22:59 06:59 Intake Total 1270 ml 0 ml 240 ml Balance 1270 ml 0 ml 240 ml Nutrition Consultation Dietary Evaluation: Recommendations by RD: PPN/TPN, Add supplement feedings Comments: day 5 PPN - continue until po intake improves to > 50% meals continue nepro bid encourage po intake Expected Outcomes/Goals: po intake to improve to 50% of meals- goal ongoing Interpretation of weight loss: >1-2% in 1 week Malnutrition Findings: Food and Nutrition Intake (Sev: <50% est energy req 5days Body Fat Depletion (Non Severe: Mod to Severe Weight Status: Underweight ROXANNA SANDRA MD Jul 26, 2018 14:36
[2018-07-26] MEDS: VANCOMYCIN 500 MG in IV NORMAL SALINE 100ML 100 ML IV SCH (14:41)
--- NOTE | 2018-07-26 14:41 | NUR ---
Pt refused PO potassium and clotrimazole juliet. Verified pt's potassium is 3.9 today, not critical, agreed to non-admin. Pt showed her tongue, states she has no pain, no burning, no white patches, does not need med. Agreed to non-admin. Per pharmacy, pt's IV vancomycin will not be given today, due to inability to run dialysis this morning. Pt's access is clotted, unable to instill cathflo. Pt is scheduled for catheter removal and replacement Saturday07/28/18.
[2018-07-26 15:00] VITALS: BP 157/81
[2018-07-26] MEDS: VANCOMYCIN PER PHARMACY MC PRN (15:09)
[2018-07-26] MEDS ORDERED: SIMETHICONE 80 MG TAB.CHEW PO PRN (15:45)
[2018-07-26] MEDS: rOPINIRole 1 MG TABLET. PO PRN (17:46)
[2018-07-26] MEDS: FOLIC/VIT B COMP W-C (RENAL) TABLET. PO SCH (17:46)
[2018-07-26 19:59] VITALS: BP 135/83
[2018-07-26] MEDS: MIRTAZAPINE 15 MG TABLET PO SCH ×2 (21:00→21:24)
[2018-07-26 23:59] VITALS: BP 164/91
[2018-07-27 03:59] VITALS: BP 164/94
[2018-07-27] MEDS: CLOTRIMAZOLE 10 MG TROCHE. MM SCH ×5 (05:43→21:25)
[2018-07-27] MEDS: VANCOMYCIN 125 MG/2.5 ML ORAL SOLUTION. PO SCH ×4 (05:43→18:31)
[2018-07-27] MEDS ORDERED: VANCOMYCIN RANDOM LEVEL. MC ONE (06:00)
[2018-07-27 07:00] VITALS: BP 168/96
[2018-07-27] MEDS: IPRATRPIUM/ALBUTEROL 0.5/2.5MG 3 ML NEBU. NEB SCH ×2 (07:11→20:00)
--- NOTE | 2018-07-27 07:30 | NUR ---
Pt IV leaking, painful, bleeding. Discontinued, unable to restart IV.
[2018-07-27 07:41] LABS: BASO # 0.1 x10^3/uL (0.0-0.2); BASO % 1 % (0-3); EOS # 0.3 x10^3/uL (0.0-0.7); EOS % 2 % (0-3); HEMOGLOBIN 7.3 g/dL (12.0-15.5); LYMPH # 1.6 x10^3/uL (1.0-4.8); LYMPH % 11 % (24-48); MEAN CORPUSCULAR HEMOGLOBIN 27 pg (25-35); MEAN CORPUSCULAR HGB CONC 32 g/dL (31-37); MEAN CORPUSCULAR VOLUME 85 fL (79-100); MONO # 0.7 x10^3/uL (0.0-1.1); MONO % 5 % (0-9); NEUT # 11.6 x10^3uL (1.8-7.7); NEUT % 81 % (31-73); PLATELET COUNT 434 x10^3/uL (140-400); RED BLOOD COUNT 2.69 x10^6/uL (3.50-5.40); RED CELL DISTRIBUTION WIDTH 17.5 % (11.5-14.5); WHITE BLOOD COUNT 14.3 x10^3/uL (4.0-11.0)
[2018-07-27 08:00] LABS: ALBUMIN 1.3 g/dL (3.4-5.0); ALBUMIN/GLOBULIN RATIO 0.3 (1.0-1.7); CALCIUM 9.2 mg/dL (8.5-10.1); CREATININE 2.5 mg/dL (0.6-1.0); POTASSIUM 4.2 mmol/L (3.5-5.1); TOTAL BILIRUBIN 0.2 mg/dL (0.2-1.0); TOTAL PROTEIN 6.3 g/dL (6.4-8.2)
[2018-07-27] MEDS: VANCOMYCIN PER PHARMACY MC PRN ×2 (08:34→08:37)
--- NOTE | 2018-07-27 08:35 | NUR ---
Pharmacy Vancomycin Dosing Note S:Consulted to monitor and dose vancomycin started 07/14/18. O:TYLER GUTIERREZ is a 72 year old F with Bacteremia HCAP . Height: 5 feet, 3 inches Weight: 48.844088 kg [place] Body Weight: 52.40 Adjusted Body Weight: 50.24 Dosing Weight: Actual Other Antibiotics: ZOSYN X1 07/14 CEFTAROLINE LABS: Last BUN: 24 Last Creatinine: 2.5 Creatinine Clearance: ESRD HD TTS mL/min Last WBC: 14.3 Last Procalcitonin: N/A, ESRD Tmax (past 24 hours): 98.9 Microbiology: BLOOD CX: MRSA I/O: 1340/1 VOID Drug Levels: Last Random level: 15.4 on 07/27/18 at 0700 Last dose given 07/24/18 at 2148 Vancomycin Dosing: Loading Dose: 1250 mg x1 Dosing Weight: Actual Target Trough: 15-20 A: Based on: random level this morning, P: 1. No dose required today, will give further dosing after replacement of hemodialysis catheter. 2. Follow up Random level as needed. 3. Pharmacy will continue to monitor, follow and adjust therapy as needed. ALEN WAGONER Terry, 07/27/18 [id number]
[2018-07-27] MEDS: SERTRALINE 50 MG TABLET. PO SCH (09:50)
[2018-07-27] MEDS: rOPINIRole 1 MG TABLET. PO SCH ×2 (09:50→21:00)
[2018-07-27] MEDS: VITAMIN B12,B9,B6 COMPLEX 1 TABLET. PO SCH (09:50)
[2018-07-27] MEDS: amLODIPine BESYLATE 10 MG TABLET PO SCH (09:51)
[2018-07-27] MEDS: LACTOBACILLUS RHAMNOSUS GG 1 CAPSULE. PO SCH ×2 (09:51→21:00)
[2018-07-27] MEDS: MEGESTROL 20 MG TABLET. PO SCH ×2 (09:51→21:00)
[2018-07-27] MEDS: NYSTATIN 100,000 UNIT/GM TOPICAL CREAM 15GM TUBE. TP SCH ×2 (09:52→21:25)
--- NOTE | 2018-07-27 10:33 | PDOC ---
Infectious Disease Note Subjective Subjective No fevers + diarrhea Not eating well Vital Sign Vital Signs Vital Signs Date Time Temp Pulse Resp B/P (MAP) Pulse Ox O2 Delivery O2 Flow Rate FiO2 07/27/18 09:51 90 168/96 07/27/18 07:12 95 Room Air 07/27/18 07:00 98.4 18 98.4 Physical Exam PHYSICAL EXAM GENERAL: Lying down, weak appearing HEENT: Pupils are equal and reactive, with normal conjunctivae. Oral cavity + dentures NECK: Supple. LUNGS: Clear to auscultation. HEART: S1, S2. ABDOMEN: Soft and nontender. No guarding or rebound. EXTREMITIES: No clubbing, cyanosis or gross edema. SKIN: Warm to touch, no signs of rash. NEUROLOGIC: Arouses to voice, quiet Right chest hemodialysis catheter - clean Labs Lab Laboratory Tests Test 07/27/18 07:00 White Blood Count 14.3 x10^3/uL (4.0-11.0) Red Blood Count 2.69 x10^6/uL (3.50-5.40) Hemoglobin 7.3 g/dL (12.0-15.5) Hematocrit 23.0 % (36.0-47.0) Mean Corpuscular Volume 85 fL (79-100) Mean Corpuscular Hemoglobin 27 pg (25-35) Mean Corpuscular Hemoglobin Concent 32 g/dL (31-37) Red Cell Distribution Width 17.5 % (11.5-14.5) Platelet Count 434 x10^3/uL (140-400) Neutrophils (%) (Auto) 81 % (31-73) Lymphocytes (%) (Auto) 11 % (24-48) Monocytes (%) (Auto) 5 % (0-9) Eosinophils (%) (Auto) 2 % (0-3) Basophils (%) (Auto) 1 % (0-3) Neutrophils # (Auto) 11.6 x10^3uL (1.8-7.7) Lymphocytes # (Auto) 1.6 x10^3/uL (1.0-4.8) Monocytes # (Auto) 0.7 x10^3/uL (0.0-1.1) Eosinophils # (Auto) 0.3 x10^3/uL (0.0-0.7) Basophils # (Auto) 0.1 x10^3/uL (0.0-0.2) Sodium Level 134 mmol/L (136-145) Potassium Level 4.2 mmol/L (3.5-5.1) Chloride Level 101 mmol/L (98-107) Carbon Dioxide Level 22 mmol/L (21-32) Anion Gap 11 (6-14) Blood Urea Nitrogen 24 mg/dL (7-20) Creatinine 2.5 mg/dL (0.6-1.0) Estimated GFR (Cockcroft-Gault) 19.0 BUN/Creatinine Ratio 10 (6-20) Glucose Level 95 mg/dL (70-99) Calcium Level 9.2 mg/dL (8.5-10.1) Total Bilirubin 0.2 mg/dL (0.2-1.0) Aspartate Amino Transf (AST/SGOT) 16 U/L (15-37) Alanine Aminotransferase (ALT/SGPT) 8 U/L (14-59) Alkaline Phosphatase 100 U/L (46-116) Total Protein 6.3 g/dL (6.4-8.2) Albumin 1.3 g/dL (3.4-5.0) Albumin/Globulin Ratio 0.3 (1.0-1.7) Random Vancomycin Level 15.4 mcg/mL Micro 07/24. BLOOD CULTURE Preliminary NO GROWTH AFTER 2 DAYS Objective Assessment MRSA (R tetra) bacteremia POA 07/14 - repeat BC 07/18 and 07/20 positive, BC neg from 07/24 NGTD - 2D echo neg vegetation; on 07/24 RAMON showed HD catheter w/ large mobile vegetation or thrombus (measuring at least 2.5 x 1.1 cm) extending into the RA. -s/p tunneled HDC line removal on 07/18. s/p replacement 07/23 C. difficile from 07/16 positive Thrush - better Anemia - S/p PRBCs Leukocytosis CKD on HD Severe Protein malnutrition Failure to thrive. Plan Plan of Care Cont IV/po Vanc ,,, ceftaroline Random trough 15.4 Probiotics f/u cultures Contact isolation Plans for HDC line to be removed per RN Attending Co-Sign The patient was seen and interviewed as well as examined at the bedside. The chart was reviewed. The case was discussed. Agree with the plan of care. TEVIN HOYOS APRN Jul 27, 2018 10:33 EUGENIA GOLD MD Jul 27, 2018 11:35
[2018-07-27 11:00] VITALS: BP 141/79
[2018-07-27 11:20] LABS: PROTHROMBIN TIME PATIENT 14.7 SEC (11.7-14.0)
--- NOTE | 2018-07-27 11:48 | NUR ---
ROSE Cerrato successfully placed peripheral IV, 22 L hand. Past-due IV antibiotics run after discussion w/pharmacy. Ok to run evening dose at regular time.
--- NOTE | 2018-07-27 12:07 | PDOC ---
PROGRESS NOTES Chief Complaint Chief Complaint impression Staph bacteremia with severe risk of complications 2D echo neg vegetation; on 07/24 RAMON showed HD catheter w/ large mobile vegetation or thrombus (measuring at least 2.5 x 1.1 cm) extending into the RA. -s/p tunneled HDC line removal on 07/18. s/p replacement 07/23 C. difficile from 07/16 positive ESRD on dialysis Anemia of ESRD Leukocytosis/sepsis C. difficile DNR Hyponatremia Hyperkalemia Vascular dementia HTN Anxiety Depression noncompliance with PT/OT 07/25 07/27 still not eating well, noncompliant History of Present Illness History of Present Illness dialysis catheter inserted Blood cultures are positive - staph bacteremia many bottles ID FOLLOWING Patient on vancomycin No fever, WBC 18.9 Hemoglobin 6.9-possibly overnight MD ordered blood transfusion NOW 8 Potassium 5, sodium 126 On contact Isol because of bacteremia and C. difficile positivity Palliative note reviewed, patient wishes to continue dialysis 07/25 Earlier entry: 72 yo f w/ PMHx CVA with vascular dementia, HTN, anxiety, depression, end-stage renal disease on dialysis Saturday, Saturday, (new dx 2018), last dialyzed on Saturday who p/w fever, decreased appetite, fever, decreased energy/ weakness, symptoms began 3 days ago. Found with Hb of 5.6 in ED, transfused PRBC to 7.5. She was noted with loose stools as well. She has history dementia but she is alert to person only, but is able to carry on a conversation and give some health history. She does not refuse dialysis every day. She was seen here this past January 2018 and May 2018 and sent home with home health ([facility]). She has a DPOA, Ivy the nephew has been texting who has been informed of hospital admission. 07/15: Seen on dialysis today. She has some chills with this. Notably, lab called about 3/4 bottles positive on blood culture for GPC in clusters. 07/16: Feeling terrible today. Has diarrhea x2 POSITIVE FOR C. DIFFICILE. She has bilateral LQ pain. Started on oral vancomycin and continued on IV Vancomycin 07/17: Still with poor PO intake 07/18: HD catheter pulled. Culture looks like MRSA 07/19: Still not eating, started PPN. Still with repeat blood cultures 1/4 bottles positive 07/21 DECISION FOR PALLIATIVE CARE Needed GRAM POSITIVE COCCI IN CLUSTERS, SUGGESTIVE OF STAPH, IN 4 OF 5 BOTTLES, 3 SETS DRAWN ON 07/20/18. ALL 3 SETS ARE POSITIVE. Still with some loose stools. Positive 2/4 repeat blood cultures after line was pulled. Denies SOB and CP. She does have some catheter site pain where it was pulled. 07/25 NONCOMPLIANT WITH PT/OT, BLOOD CUL PENDING, REPEAT, high risk of complications due to noncompliance per my personal review of chart 07/26 PERMCATH NONFUNCTIONAL. NEW PERMCAT SATURDAY refusing to eat lunch today, bp uncontrolled PLAN: MIght neeed RAMON - r.o IE COnt vanc for now HD per renal Supprotive meds DNR pt/ot NEW PERMCAT FRIDAY 07/28 planned dw ID Vitals Vitals Vital Signs Date Time Temp Pulse Resp B/P (MAP) Pulse Ox O2 Delivery O2 Flow Rate FiO2 07/27/18 11:00 98.2 90 18 141/79 (99) 95 Room Air 98.2 Physical Exam Physical Exam GENERAL: Lying down, weak appearing sad affect HEENT: Pupils are equal and reactive, with normal conjunctivae. + dentures NECK: Supple. LUNGS: Clear to auscultation. HEART: S1, S2. ABDOMEN: Soft and nontender. No guarding or rebound. EXTREMITIES: No clubbing, cyanosis or gross edema. SKIN: Warm to touch, no signs of rash. NEUROLOGIC: Arouses to voice, quiet Right chest hemodialysis catheter - clean General: Alert, Oriented X3, No acute distress, Other (poorly oriented) Heart: Regular rate, Normal S1 Lungs: Clear Abdomen: Normal bowel sounds, Soft Extremities: No clubbing, No cyanosis, Normal pulses Skin: No rashes, No significant lesion Labs LABS Laboratory Tests Test 07/27/18 07:00 White Blood Count 14.3 x10^3/uL (4.0-11.0) Red Blood Count 2.69 x10^6/uL (3.50-5.40) Hemoglobin 7.3 g/dL (12.0-15.5) Hematocrit 23.0 % (36.0-47.0) Mean Corpuscular Volume 85 fL (79-100) Mean Corpuscular Hemoglobin 27 pg (25-35) Mean Corpuscular Hemoglobin Concent 32 g/dL (31-37) Red Cell Distribution Width 17.5 % (11.5-14.5) Platelet Count 434 x10^3/uL (140-400) Neutrophils (%) (Auto) 81 % (31-73) Lymphocytes (%) (Auto) 11 % (24-48) Monocytes (%) (Auto) 5 % (0-9) Eosinophils (%) (Auto) 2 % (0-3) Basophils (%) (Auto) 1 % (0-3) Neutrophils # (Auto) 11.6 x10^3uL (1.8-7.7) Lymphocytes # (Auto) 1.6 x10^3/uL (1.0-4.8) Monocytes # (Auto) 0.7 x10^3/uL (0.0-1.1) Eosinophils # (Auto) 0.3 x10^3/uL (0.0-0.7) Basophils # (Auto) 0.1 x10^3/uL (0.0-0.2) Prothrombin Time 14.7 SEC (11.7-14.0) Prothromb Time International Ratio 1.2 (0.8-1.1) Sodium Level 134 mmol/L (136-145) Potassium Level 4.2 mmol/L (3.5-5.1) Chloride Level 101 mmol/L (98-107) Carbon Dioxide Level 22 mmol/L (21-32) Anion Gap 11 (6-14) Blood Urea Nitrogen 24 mg/dL (7-20) Creatinine 2.5 mg/dL (0.6-1.0) Estimated GFR (Cockcroft-Gault) 19.0 BUN/Creatinine Ratio 10 (6-20) Glucose Level 95 mg/dL (70-99) Calcium Level 9.2 mg/dL (8.5-10.1) Total Bilirubin 0.2 mg/dL (0.2-1.0) Aspartate Amino Transf (AST/SGOT) 16 U/L (15-37) Alanine Aminotransferase (ALT/SGPT) 8 U/L (14-59) Alkaline Phosphatase 100 U/L (46-116) Total Protein 6.3 g/dL (6.4-8.2) Albumin 1.3 g/dL (3.4-5.0) Albumin/Globulin Ratio 0.3 (1.0-1.7) Random Vancomycin Level 15.4 mcg/mL Assessment and Plan Assessmemt and Plan Problems Medical Problems: (1) End stage renal disease Status: Acute (2) Generalized weakness Status: Acute Comment Review of Relevant I have reviewed the following items linda (where applicable) has been applied. Labs Laboratory Tests Test 07/26/18 05:33 07/27/18 07:00 White Blood Count 15.5 x10^3/uL (4.0-11.0) 14.3 x10^3/uL (4.0-11.0) Red Blood Count 2.84 x10^6/uL (3.50-5.40) 2.69 x10^6/uL (3.50-5.40) Hemoglobin 7.8 g/dL (12.0-15.5) 7.3 g/dL (12.0-15.5) Hematocrit 24.3 % (36.0-47.0) 23.0 % (36.0-47.0) Mean Corpuscular Volume 86 fL (79-100) 85 fL (79-100) Mean Corpuscular Hemoglobin 28 pg (25-35) 27 pg (25-35) Mean Corpuscular Hemoglobin Concent 32 g/dL (31-37) 32 g/dL (31-37) Red Cell Distribution Width 17.6 % (11.5-14.5) 17.5 % (11.5-14.5) Platelet Count 422 x10^3/uL (140-400) 434 x10^3/uL (140-400) Sodium Level 134 mmol/L (136-145) 134 mmol/L (136-145) Potassium Level 3.9 mmol/L (3.5-5.1) 4.2 mmol/L (3.5-5.1) Chloride Level 100 mmol/L (98-107) 101 mmol/L (98-107) Carbon Dioxide Level 25 mmol/L (21-32) 22 mmol/L (21-32) Anion Gap 9 (6-14) 11 (6-14) Blood Urea Nitrogen 13 mg/dL (7-20) 24 mg/dL (7-20) Creatinine 2.0 mg/dL (0.6-1.0) 2.5 mg/dL (0.6-1.0) Estimated GFR (Cockcroft-Gault) 24.6 19.0 Glucose Level 91 mg/dL (70-99) 95 mg/dL (70-99) Calcium Level 9.2 mg/dL (8.5-10.1) 9.2 mg/dL (8.5-10.1) Phosphorus Level 2.2 mg/dL (2.6-4.7) Albumin 1.3 g/dL (3.4-5.0) 1.3 g/dL (3.4-5.0) Neutrophils (%) (Auto) 81 % (31-73) Lymphocytes (%) (Auto) 11 % (24-48) Monocytes (%) (Auto) 5 % (0-9) Eosinophils (%) (Auto) 2 % (0-3) Basophils (%) (Auto) 1 % (0-3) Neutrophils # (Auto) 11.6 x10^3uL (1.8-7.7) Lymphocytes # (Auto) 1.6 x10^3/uL (1.0-4.8) Monocytes # (Auto) 0.7 x10^3/uL (0.0-1.1) Eosinophils # (Auto) 0.3 x10^3/uL (0.0-0.7) Basophils # (Auto) 0.1 x10^3/uL (0.0-0.2) Prothrombin Time 14.7 SEC (11.7-14.0) Prothromb Time International Ratio 1.2 (0.8-1.1) BUN/Creatinine Ratio 10 (6-20) Total Bilirubin 0.2 mg/dL (0.2-1.0) Aspartate Amino Transf (AST/SGOT) 16 U/L (15-37) Alanine Aminotransferase (ALT/SGPT) 8 U/L (14-59) Alkaline Phosphatase 100 U/L (46-116) Total Protein 6.3 g/dL (6.4-8.2) Albumin/Globulin Ratio 0.3 (1.0-1.7) Random Vancomycin Level 15.4 mcg/mL Laboratory Tests Test 07/27/18 07:00 White Blood Count 14.3 x10^3/uL (4.0-11.0) Red Blood Count 2.69 x10^6/uL (3.50-5.40) Hemoglobin 7.3 g/dL (12.0-15.5) Hematocrit 23.0 % (36.0-47.0) Mean Corpuscular Volume 85 fL (79-100) Mean Corpuscular Hemoglobin 27 pg (25-35) Mean Corpuscular Hemoglobin Concent 32 g/dL (31-37) Red Cell Distribution Width 17.5 % (11.5-14.5) Platelet Count 434 x10^3/uL (140-400) Neutrophils (%) (Auto) 81 % (31-73) Lymphocytes (%) (Auto) 11 % (24-48) Monocytes (%) (Auto) 5 % (0-9) Eosinophils (%) (Auto) 2 % (0-3) Basophils (%) (Auto) 1 % (0-3) Neutrophils # (Auto) 11.6 x10^3uL (1.8-7.7) Lymphocytes # (Auto) 1.6 x10^3/uL (1.0-4.8) Monocytes # (Auto) 0.7 x10^3/uL (0.0-1.1) Eosinophils # (Auto) 0.3 x10^3/uL (0.0-0.7) Basophils # (Auto) 0.1 x10^3/uL (0.0-0.2) Prothrombin Time 14.7 SEC (11.7-14.0) Prothromb Time International Ratio 1.2 (0.8-1.1) Sodium Level 134 mmol/L (136-145) Potassium Level 4.2 mmol/L (3.5-5.1) Chloride Level 101 mmol/L (98-107) Carbon Dioxide Level 22 mmol/L (21-32) Anion Gap 11 (6-14) Blood Urea Nitrogen 24 mg/dL (7-20) Creatinine 2.5 mg/dL (0.6-1.0) Estimated GFR (Cockcroft-Gault) 19.0 BUN/Creatinine Ratio 10 (6-20) Glucose Level 95 mg/dL (70-99) Calcium Level 9.2 mg/dL (8.5-10.1) Total Bilirubin 0.2 mg/dL (0.2-1.0) Aspartate Amino Transf (AST/SGOT) 16 U/L (15-37) Alanine Aminotransferase (ALT/SGPT) 8 U/L (14-59) Alkaline Phosphatase 100 U/L (46-116) Total Protein 6.3 g/dL (6.4-8.2) Albumin 1.3 g/dL (3.4-5.0) Albumin/Globulin Ratio 0.3 (1.0-1.7) Random Vancomycin Level 15.4 mcg/mL Microbiology 07/24/18 Blood Culture - Preliminary, Resulted NO GROWTH AFTER 2 DAYS 07/14/18 Urine Culture - Final, Complete 07/14/18 Urine Culture Result 1 (MARYANN) - Final, Complete Medications Current Medications Piperacillin Sod/ Tazobactam Sod 4.5 gm/Sodium Chloride 100 ml @ 200 mls/hr 1X ONCE IV Last administered on 07/14/18at 15:58; Start 07/14/18 at 15:00; Stop 07/14/18 at 15:29; Status DC Vancomycin HCl (Vanco Per Pharmacy) 1 each PRN DAILY PRN MC SEE COMMENTS Last administered on 07/27/18at 08:37; Start 07/14/18 at 14:45 Vancomycin HCl 1.25 gm/Sodium Chloride 250 ml @ 166.667 mls/hr 1X ONCE IV Last administered on 07/14/18at 18:10; Start 07/14/18 at 15:00; Stop 07/14/18 at 16:29; Status DC Ondansetron HCl (Zofran) 4 mg PRN Q8HRS PRN IV NAUSEA/VOMITING; Start 07/14/18 at 17:15; Stop 07/15/18 at 17:14; Status DC Morphine Sulfate (Morphine Sulfate) 2 mg PRN Q2HR PRN IV PAIN; Start 07/14/18 at 17:15; Stop 07/15/18 at 17:14; Status DC Acetaminophen (Tylenol) 650 mg PRN Q4HRS PRN PO FEVER; Start 07/14/18 at 17:15 ; Stop 07/15/18 at 17:14; Status DC Vancomycin HCl (Vancomycin Random Level) 1 each 1X ONCE MC ; Start 07/15/18 at 06:00; Stop 07/15/18 at 06:01; Status DC Vitamin B Complex/ Vitamin C (Dinorah-Ralph) 1 tab QPM PO Last administered on 17:46; Start 07/15/18 at 18:00 Megestrol Acetate (Megace) 40 mg BID PO Last administered on 07/27/18 09:51; Start 07/15/18 at 09:00 Mirtazapine (Remeron) 15 mg QHS PO Last administered on 07/25/18 20:54; Start 07/14/18 at 22:00 Non-Formulary Medication (Mirtazapine ) 1 tab QHS PO ; Start 07/15/18 at 21:00; Status UNV Ropinirole HCl (Requip) 3 mg BID PO Last administered on 07/16/18 18:21; Start 07/14/18 at 22:00; Stop 07/16/18 at 19:54; Status DC Sertraline HCl (Zoloft) 100 mg DAILY PO Last administered on 07/27/18 09:50; Start 07/15/18 at 09:00 Phytonadione (Mephyton Oral Soln) 5 mg 1X ONCE PO Last administered on 22:14; Start 07/14/18 at 22:00; Stop 07/14/18 at 22:01; Status DC Vitamin B Complex (Folbic Tablet) 1 tab DAILY PO Last administered on 07/27/18 09:50; Start 07/15/18 at 09:00 Albuterol/ Ipratropium (Duoneb) 3 ml RTBID NEB Last administered on 07/27/18 07 :11; Start 07/15/18 at 08:00 Sodium Chloride 1,000 ml @ 1,000 mls/hr Q1H PRN IV hypotension; Start 07/15/18 at 10:48; Stop 07/15/18 at 16:47; Status DC Albumin Human 200 ml @ 200 mls/hr 1X PRN PRN IV Hypotension; Start 07/15/18 at 11:00; Stop 07/15/18 at 16:59; Status DC Sodium Chloride 1,000 ml @ 400 mls/hr Q2H30M PRN IV PATENCY; Start 07/15/18 at 10:48; Stop 07/15/18 at 22:47; Status DC Info (PHARMACY MONITORING -- do not chart) 1 each PRN DAILY PRN MC SEE COMMENTS ; Start 07/15/18 at 11:00; Status UNV Info (PHARMACY MONITORING -- do not chart) 1 each PRN DAILY PRN MC SEE COMMENTS ; Start 07/15/18 at 11:00; Stop 07/22/18 at 14:31; Status DC Vancomycin HCl 500 mg/Sodium Chloride 100 ml @ 100 mls/hr QTUTHSA IV Last administered on 07/17/18at 16:44; Start 07/17/18 at 16:00; Stop 07/18/18 at 15:41 ; Status DC Lactobacillus Rhamnosus (Culturelle) 1 cap BID PO Last administered on 09:51; Start 07/16/18 at 21:00 Clotrimazole (Mycelex) 10 mg 5XDAY MM Last administered on 07/27/18 05:43; Start 07/16/18 at 14:00 Ropinirole HCl (Requip) 3 mg DAILY PO Last administered on 07/27/18 09:50; Start 07/17/18 at 09:00 Ropinirole HCl (Requip) 2 mg QHS PO Last administered on 07/25/18 20:53; Start 07/16/18 at 21:00 Ropinirole HCl (Requip) 1 mg PRN QEVNG PRN PO RLS Last administered on 17:46; Start 07/16/18 at 20:00 Vancomycin HCl (Vancomycin Oral Solution) 125 mg Q6HRS PO Last administered on 07/26/18 17:46; Start 07/17/18 at 00:00 Sodium Chloride 1,000 ml @ 1,000 mls/hr Q1H PRN IV hypotension; Start 07/17/18 at 14:55; Stop 07/17/18 at 20:54; Status DC Sodium Chloride 1,000 ml @ 400 mls/hr Q2H30M PRN IV PATENCY; Start 07/17/18 at 14:55; Stop 07/18/18 at 02:54; Status DC Info (PHARMACY MONITORING -- do not chart) 1 each PRN DAILY PRN MC SEE COMMENTS ; Start 07/17/18 at 15:00; Stop 07/17/18 at 15:00; Status DC Info (PHARMACY MONITORING -- do not chart) 1 each PRN DAILY PRN MC SEE COMMENTS ; Start 07/17/18 at 15:00; Stop 07/17/18 at 15:00; Status DC Sodium Chloride 1,000 ml @ 1,000 mls/hr Q1H PRN IV hypotension; Start 07/18/18 at 11:30; Stop 07/18/18 at 17:29; Status DC Sodium Chloride 1,000 ml @ 400 mls/hr Q2H30M PRN IV PATENCY; Start 07/18/18 at 11:30; Stop 07/18/18 at 23:29; Status DC Info (PHARMACY MONITORING -- do not chart) 1 each PRN DAILY PRN MC SEE COMMENTS ; Start 07/18/18 at 12:30; Status UNV Info (PHARMACY MONITORING -- do not chart) 1 each PRN DAILY PRN MC SEE COMMENTS ; Start 07/18/18 at 12:30; Status UNV Vancomycin HCl 500 mg/Sodium Chloride 100 ml @ 100 mls/hr 1X ONCE IV Last administered on 07/18/18at 16:40; Start 07/18/18 at 16:00; Stop 07/18/18 at 16:59 ; Status DC Amino Acids/ Glycerin/ Electrolytes 1,000 ml @ 80 mls/hr [id number] IV Last administered on 07/26/18at 19:59; Start 07/19/18 at 11:45 Potassium Chloride (Klor-Con) 40 meq AFTRNOON PO Last administered on at 15:10; Start 07/19/18 at 13:00 Vancomycin HCl 500 mg/Sodium Chloride 100 ml @ 100 mls/hr 1X ONCE IV ; Start 07/21/18 at 16:00; Stop 07/21/18 at 16:59; Status Cancel Acetaminophen/ Hydrocodone Bitart (Lortab 5/325) 1 tab PRN Q6HRS PRN PO SEVERE PAIN; Start 07/19/18 at 20:00 Sodium Chloride 1,000 ml @ 1,000 mls/hr Q1H PRN IV hypotension; Start 07/21/18 at 12:29; Stop 07/21/18 at 18:28; Status DC Sodium Chloride (Normal Saline Flush) 10 ml 1X PRN PRN IV AP catheter pack; Start 07/21/18 at 12:30; Stop 07/22/18 at 12:29; Status DC Sodium Chloride (Normal Saline Flush) 10 ml 1X PRN PRN IV S[employer]IC catheter pack; Start 07/21/18 at 12:30; Stop 07/22/18 at 12:29; Status DC Sodium Chloride 1,000 ml @ 400 mls/hr Q2H30M PRN IV PATENCY; Start 07/21/18 at 12:29; Stop 07/22/18 at 00:28; Status DC Info (PHARMACY MONITORING -- do not chart) 1 each PRN DAILY PRN MC SEE COMMENTS ; Start 07/21/18 at 12:30; Status UNV Info (PHARMACY MONITORING -- do not chart) 1 each PRN DAILY PRN MC SEE COMMENTS ; Start 07/21/18 at 12:30; Status Cancel Vancomycin HCl 750 mg/Sodium Chloride 250 ml @ 250 mls/hr 1X ONCE IV ; Start 07/21/18 at 16:00; Stop 07/21/18 at 16:59; Status Cancel Vancomycin HCl 500 mg/Sodium Chloride 100 ml @ 100 mls/hr 1X ONCE IV Last administered on 07/21/18at 21:35; Start 07/21/18 at 18:30; Stop 07/21/18 at 19:29 ; Status DC Lidocaine/ Epinephrine (LIDOCAINE 1%-EPI 1:100,000 Multi-Dose) 20 ml STK-MED ONCE .ROUTE ; Start 07/22/18 at 11:46; Stop 07/22/18 at 11:47; Status DC Cefazolin Sodium 50 ml @ As Directed STK-MED ONCE IV ; Start 07/22/18 at 12:45; Stop 07/22/18 at 12:46; Status DC Midazolam HCl (Versed) 2 mg STK-MED ONCE .ROUTE ; Start 07/22/18 at 12:45; Stop 07/22/18 at 12:46; Status DC Fentanyl Citrate (Fentanyl 2ml Vial) 100 mcg STK-MED ONCE .ROUTE ; Start at 12:45; Stop 07/22/18 at 12:46; Status DC Vancomycin HCl 500 mg/Sodium Chloride 100 ml @ 100 mls/hr QTUTHSA IV Last administered on 07/24/18at 18:27; Start 07/22/18 at 16:00; Stop 07/26/18 at 14:45 ; Status DC Midazolam HCl (Versed) 2 mg 1X ONCE IV Last administered on 07/22/18at 13:28; Start 07/22/18 at 13:30; Stop 07/22/18 at 13:31; Status DC Fentanyl Citrate (Fentanyl 2ml Vial) 100 mcg 1X ONCE IV Last administered on at 13:27; Start 07/22/18 at 13:30; Stop 07/22/18 at 13:31; Status DC Lidocaine HCl (Lidocaine 1% 20ml Vial) 20 ml 1X ONCE INJ Last administered on 07/22/18at 13:27; Start 07/22/18 at 13:30; Stop 07/22/18 at 13:31; Status DC Ceftaroline Fosamil 400 mg/ Sodium Chloride 250 ml @ 250 mls/hr Q12HR IV Last administered on 07/26/18at 21:23; Start 07/22/18 at 14:00 Darbepoetin Avery (Aranesp) 60 mcg [id number] SQ Last administered on 07/22/18at 21 :49; Start 07/22/18 at 21:00 Sodium Chloride 1,000 ml @ 1,000 mls/hr Q1H PRN IV hypotension; Start 07/22/18 at 15:20; Stop 07/22/18 at 21:19; Status DC Albumin Human 200 ml @ 200 mls/hr 1X PRN PRN IV Hypotension; Start 07/22/18 at 15:30; Stop 07/22/18 at 21:29; Status DC Acetaminophen (Tylenol) 500 mg 1X PRN PRN PO MILD PAIN / TEMP; Start 07/22/18 at 15:30; Stop 07/23/18 at 15:29; Status DC Diphenhydramine HCl (Benadryl) 25 mg 1X PRN PRN IV ITCHING; Start 07/22/18 at 15:30; Stop 07/23/18 at 15:29; Status DC Diphenhydramine HCl (Benadryl) 25 mg 1X PRN PRN IV ITCHING; Start 07/22/18 at 15:30; Stop 07/23/18 at 15:29; Status DC Sodium Chloride (Normal Saline Flush) 10 ml 1X PRN PRN IV AP catheter pack; Start 07/22/18 at 15:30; Stop 07/23/18 at 15:29; Status DC Sodium Chloride (Normal Saline Flush) 10 ml 1X PRN PRN IV S[employer]IC catheter pack; Start 07/22/18 at 15:30; Stop 07/23/18 at 15:29; Status DC Sodium Chloride 1,000 ml @ 400 mls/hr Q2H30M PRN IV PATENCY; Start 07/22/18 at 15:20; Stop 07/23/18 at 03:19; Status DC Info (PHARMACY MONITORING -- do not chart) 1 each PRN DAILY PRN MC SEE COMMENTS ; Start 07/22/18 at 15:30; Stop 07/22/18 at 15:30; Status DC Sodium Chloride 1,000 ml @ 1,000 mls/hr Q1H PRN IV hypotension; Start 07/23/18 at 07:00; Stop 07/23/18 at 12:59; Status DC Sodium Chloride 1,000 ml @ 400 mls/hr Q2H30M PRN IV PATENCY; Start 07/23/18 at 07:00; Stop 07/23/18 at 18:59; Status DC Info (PHARMACY MONITORING -- do not chart) 1 each PRN DAILY PRN MC SEE COMMENTS ; Start 07/23/18 at 09:00; Status UNV Info (PHARMACY MONITORING -- do not chart) 1 each PRN DAILY PRN MC SEE COMMENTS ; Start 07/23/18 at 09:00 Labetalol HCl (Normodyne Iv Push) 10 mg PRN Q2HR PRN IVP HYPERTENSION, SEE COMMENTS; Start 07/23/18 at 09:30 Acetaminophen (Tylenol) 500 mg PRN Q6HRS PRN PO MILD PAIN / TEMP; Start at 09:30 Ondansetron HCl (Zofran) 4 mg PRN Q6HRS PRN IV NAUSEA/VOMITING Last administered on 07/26/18 16:17; Start 07/23/18 at 09:30 Ondansetron HCl (Zofran Odt) 4 mg PRN Q6HRS PRN PO NAUSEA/VOMITING Last administered on 07/26/18at 16:12; Start 07/23/18 at 09:30 Tramadol HCl (Ultram) 50 mg PRN Q6HRS PRN PO MODERATE PAIN; Start 07/23/18 at 09:30 Amlodipine Besylate (Norvasc) 10 mg DAILY PO Last administered on 07/27/18at 09: 51; Start 07/23/18 at 09:00 Ondansetron HCl (Zofran) 4 mg PRN Q6HRS PRN IV NAUSEA/VOMITING; Start 07/24/18 at 07:00; Stop 07/25/18 at 06:59; Status DC Fentanyl Citrate (Fentanyl 2ml Vial) 25 mcg PRN Q5MIN PRN IV MILD PAIN; Start 07/24/18 at 07:00; Stop 07/25/18 at 06:59; Status DC Fentanyl Citrate (Fentanyl 2ml Vial) 50 mcg PRN Q5MIN PRN IV MODERATE TO SEVERE PAIN; Start 07/24/18 at 07:00; Stop 07/25/18 at 06:59; Status DC Ringer's Solution 1,000 ml @ 30 mls/hr Q24H IV ; Start 07/24/18 at 07:00; Stop 07/24/18 at 18:59; Status DC Lidocaine HCl (Xylocaine-Mpf 1% 2ml Vial) 2 ml PRN 1X PRN ID PRIOR TO IV START ; Start 07/24/18 at 07:00; Stop 07/25/18 at 06:59; Status DC Prochlorperazine Edisylate (Compazine) 5 mg PACU PRN PRN IV NAUSEA, MRX1; Start 07/24/18 at 07:00; Stop 07/25/18 at 06:59; Status DC Vancomycin HCl 500 mg/Sodium Chloride 100 ml @ 100 mls/hr ONCE ONCE IV Last administered on 07/23/18at 17:23; Start 07/23/18 at 16:00; Stop 07/23/18 at 16:59 ; Status DC Nystatin (Mycostatin) 1 rolly BID TP Last administered on 07/27/18at 09:52; Start 07/23/18 at 21:00 Benzocaine (Hurricaine One) 1 spray STK-MED ONCE .ROUTE ; Start 07/24/18 at 11: 49; Stop 07/24/18 at 11:50; Status Cancel Lidocaine HCl (Viscous Lidocaine) 15 ml STK-MED ONCE .ROUTE ; Start 07/24/18 at 11:49; Stop 07/24/18 at 11:50; Status DC Lidocaine HCl (Xylocaine 2% Topical 5gm Tube) 1 rolly 1X ONCE TP ; Start at 12:00; Stop 07/24/18 at 12:01; Status DC Lidocaine HCl (Viscous Lidocaine) 15 ml 1X ONCE SWSW Last administered on 07/24at 13:12; Start 07/24/18 at 12:00; Stop 07/24/18 at 12:01; Status DC Benzocaine (Hurricaine One) 3 spray 1X ONCE MM Last administered on 07/24/18at 13:11; Start 07/24/18 at 12:00; Stop 07/24/18 at 12:01; Status DC Lidocaine HCl (Glydo (Lidocaine) Jelly) 1 rolly 1X ONCE MM Last administered on 07/24/18at 13:10; Start 07/24/18 at 12:00; Stop 07/24/18 at 12:01; Status DC Sodium Chloride 1,000 ml @ 1,000 mls/hr Q1H PRN IV hypotension; Start 07/24/18 at 13:36; Stop 07/24/18 at 19:35; Status DC Albumin Human 200 ml @ 200 mls/hr 1X PRN PRN IV Hypotension; Start 07/24/18 at 13:45; Stop 07/24/18 at 19:44; Status DC Acetaminophen (Tylenol) 500 mg 1X PRN PRN PO MILD PAIN / TEMP; Start 07/24/18 at 13:45; Stop 07/25/18 at 13:44; Status DC Diphenhydramine HCl (Benadryl) 25 mg 1X PRN PRN IV ITCHING; Start 07/24/18 at 13:45; Stop 07/25/18 at 13:44; Status DC Diphenhydramine HCl (Benadryl) 25 mg 1X PRN PRN IV ITCHING; Start 07/24/18 at 13:45; Stop 07/25/18 at 13:44; Status DC Sodium Chloride (Normal Saline Flush) 10 ml 1X PRN PRN IV AP catheter pack; Start 07/24/18 at 13:45; Stop 07/25/18 at 13:44; Status DC Sodium Chloride (Normal Saline Flush) 10 ml 1X PRN PRN IV [employer] catheter pack; Start 07/24/18 at 13:45; Stop 07/25/18 at 13:44; Status DC Sodium Chloride 1,000 ml @ 400 mls/hr Q2H30M PRN IV PATENCY; Start 07/24/18 at 13:36; Stop 07/25/18 at 01:35; Status DC Info (PHARMACY MONITORING -- do not chart) 1 each PRN DAILY PRN MC SEE COMMENTS ; Start 07/24/18 at 13:45; Stop 07/24/18 at 13:45; Status DC Propofol (Diprivan) 200 mg STK-MED ONCE IV ; Start 07/24/18 at 13:00; Stop at 08:16; Status DC Loperamide HCl (Imodium) 2 mg 1X ONCE PO Last administered on 07/25/18at 12:47; Start 07/25/18 at 11:15; Stop 07/25/18 at 11:16; Status DC Vancomycin HCl 500 mg/Sodium Chloride 100 ml @ 100 mls/hr QTUTHSA IV ; Start at 16:00; Stop 07/29/18 at 16:00; Status DC Vancomycin HCl (Vancomycin Random Level) 1 each 1X ONCE MC ; Start 07/27/18 at 06:00; Stop 07/27/18 at 06:02; Status DC Simethicone (Gas-X) 80 mg PRN AFTMEALHC PRN PO GAS / BLOATING Last administered on 07/26/18at 16:12; Start 07/26/18 at 15:45 Active Scripts Active Reported Dialyvite Tablet (Folic Acid/Vitamin B Comp W-C) 1 Each Tablet 1 Each PO QPM QPM @ 1900 [hectorol] QTUTHSA [epogen] QTUTHSA Mirtazapine 15 Mg Tablet 1 Tab PO QHS Zoloft (Sertraline Hcl) 100 Mg Tablet 1 Tab PO DAILY Requip (Ropinirole Hcl) 1 Mg Tablet 3 Mg PO BID Mirtazapine 15 Mg Tablet 1 Tab PO QHS Megestrol Acetate 40 Mg Tablet 40 Mg PO BID Vitals/I & O Vital Sign - Last 24 Hours 07/26/18 07/26/18 07/26/18 07/26/18 15:00 18:56 19:59 20:23 Temp 98.3 97.5 98.3 97.5 Pulse 91 97 Resp 20 20 B/P (MAP) 157/81 (106) 135/83 (100) Pulse Ox 98 94 O2 Delivery Room Air Room Air Room Air Room Air 307/27/18 07/27/18 07/27/18 23:59 03:59 07:00 07:12 Temp 97.5 97.8 98.4 97.5 97.8 98.4 Pulse 91 95 90 Resp 21 21 18 B/P (MAP) 164/91 (115) 164/94 (117) 168/96 (120) Pulse Ox 93 95 95 95 O2 Delivery Room Air Room Air Room Air Room Air 07/27/18 07/27/18 07/27/18 08:00 09:51 11:00 Temp 98.2 98.2 Pulse 90 90 Resp 18 B/P (MAP) 168/96 141/79 (99) Pulse Ox 95 O2 Delivery Room Air Room Air Intake and Output 07/26/18 07/26/18 07/27/18 15:00 23:00 07:00 Intake Total 1080 ml 140 ml 120 ml Output Total 150 ml Balance 930 ml 140 ml 120 ml Nutrition Consultation Dietary Evaluation: Recommendations by RD: PPN/TPN, Add supplement feedings Comments: day 5 PPN - continue until po intake improves to > 50% meals continue nepro bid encourage po intake Expected Outcomes/Goals: po intake to improve to 50% of meals- goal ongoing Interpretation of weight loss: >1-2% in 1 week Malnutrition Findings: Food and Nutrition Intake (Sev: <50% est energy req 5days Body Fat Depletion (Non Severe: Mod to Severe Weight Status: Underweight LIBERTY MUNGUIA MD Jul 27, 2018 12:07
[2018-07-27] MEDS: NORMAL SALINE IV SCH ×2 (12:23→21:25)
[2018-07-27] MEDS: CEFTAROLINE FOSAMIL IV SCH ×2 (12:23→21:25)
[2018-07-27] MEDS: AMINO AC 3%/ELECTROLYTE/GLYCER 1,000 ML IV SCH ×2 (13:33→19:27)
[2018-07-27] MEDS: POTASSIUM CHLORIDE 20 MEQ TABLET.ER. PO SCH (13:36)
[2018-07-27 15:00] VITALS: BP 145/70
[2018-07-27] MEDS: FOLIC/VIT B COMP W-C (RENAL) TABLET. PO SCH (18:31)
[2018-07-27 19:00] VITALS: BP 157/80
[2018-07-27] MEDS: MIRTAZAPINE 15 MG TABLET PO SCH (21:00)
[2018-07-27 23:00] VITALS: BP 113/58
[2018-07-28] MEDS: AMINO AC 3%/ELECTROLYTE/GLYCER 1,000 ML IV SCH ×2 (02:31→20:45)
[2018-07-28 03:00] VITALS: BP 129/63
[2018-07-28] MEDS: VANCOMYCIN 125 MG/2.5 ML ORAL SOLUTION. PO SCH ×4 (05:47→18:30)
[2018-07-28] MEDS: CLOTRIMAZOLE 10 MG TROCHE. MM SCH ×3 (05:48→14:00)
[2018-07-28 07:00] VITALS: BP 124/94
[2018-07-28] MEDS: IPRATRPIUM/ALBUTEROL 0.5/2.5MG 3 ML NEBU. NEB SCH ×2 (08:42→20:06)
[2018-07-28 08:45] LABS: BASO # 0.1 x10^3/uL (0.0-0.2); BASO % 1 % (0-3); EOS # 0.3 x10^3/uL (0.0-0.7); EOS % 2 % (0-3); HEMATOCRIT 23.1 % (36.0-47.0); HEMOGLOBIN 7.2 g/dL (12.0-15.5); LYMPH # 1.4 x10^3/uL (1.0-4.8); LYMPH % 10 % (24-48); MEAN CORPUSCULAR HEMOGLOBIN 27 pg (25-35); MEAN CORPUSCULAR HGB CONC 31 g/dL (31-37); MEAN CORPUSCULAR VOLUME 86 fL (79-100); MONO # 0.7 x10^3/uL (0.0-1.1); MONO % 5 % (0-9); NEUT # 11.2 x10^3uL (1.8-7.7); NEUT % 82 % (31-73); PLATELET COUNT 417 x10^3/uL (140-400); RED BLOOD COUNT 2.69 x10^6/uL (3.50-5.40); RED CELL DISTRIBUTION WIDTH 17.9 % (11.5-14.5); WHITE BLOOD COUNT 13.8 x10^3/uL (4.0-11.0)
[2018-07-28] MEDS: rOPINIRole 1 MG TABLET. PO SCH ×2 (09:00→21:23)
[2018-07-28] MEDS: MEGESTROL 20 MG TABLET. PO SCH ×2 (09:00→21:23)
[2018-07-28] MEDS: SERTRALINE 50 MG TABLET. PO SCH (09:00)
[2018-07-28] MEDS: amLODIPine BESYLATE 10 MG TABLET PO SCH (09:00)
[2018-07-28] MEDS: NYSTATIN 100,000 UNIT/GM TOPICAL CREAM 15GM TUBE. TP SCH ×2 (09:00→21:23)
[2018-07-28] MEDS: VITAMIN B12,B9,B6 COMPLEX 1 TABLET. PO SCH (09:00)
[2018-07-28] MEDS: LACTOBACILLUS RHAMNOSUS GG 1 CAPSULE. PO SCH ×2 (09:00→21:23)
--- NOTE | 2018-07-28 09:12 | PDOC ---
Infectious Disease Note Subjective: Subjective No fevers She has c/o diarrhea .slowing down per nursing staff Not eating well ROS: ROS Negative except for above. Vital Signs: Vital Signs Vital Signs Date Time Temp Pulse Resp B/P (MAP) Pulse Ox O2 Delivery O2 Flow Rate FiO2 07/28/18 08:44 96 Room Air 07/28/18 07:00 98.3 86 18 124/94 (104) 98.3 07/28/18 03:00 4.0 Physical Exam: PHYSICAL EXAM GENERAL: Lying down, weak appearing sad affect HEENT: Pupils are equal and reactive, with normal conjunctivae. + dentures NECK: Supple. LUNGS: Clear to auscultation. HEART: S1, S2. ABDOMEN: Soft and nontender. No guarding or rebound. EXTREMITIES: No clubbing, cyanosis or gross edema. SKIN: Warm to touch, no signs of rash. NEUROLOGIC: Arouses to voice, quiet Right chest hemodialysis catheter - clean Medications: Inpatient Meds: Current Medications Medications (Trade) Dose Ordered Sig/Jaswinder Start Time Stop Time Status Last Admin Dose Admin Acetaminophen (Tylenol) 500 mg 1X PRN PRN 07/24/18 13:45 07/25/18 13:44 DC Acetaminophen/ Hydrocodone Bitart (Lortab 5/325) 1 tab PRN Q6HRS PRN 07/19/18 20:00 Albumin Human 200 ml @ 200 mls/hr 1X PRN PRN 07/24/18 13:45 07/24/18 19:44 DC Albuterol/ Ipratropium (Duoneb) 3 ml RTBID 07/15/18 08:00 07/28/18 08:42 3 ML Amino Acids/ Glycerin/ Electrolytes 1,000 ml @ 80 mls/hr [id number] 07/19/18 11:45 07/28/18 02:31 80 MLS/HR Amlodipine Besylate (Norvasc) 10 mg DAILY 07/23/18 09:00 07/27/18 09:51 10 MG Benzocaine (Hurricaine One) 3 spray 1X ONCE 07/24/18 12:00 07/24/18 12:01 DC 07/24/18 13:11 2 SPRAY Cefazolin Sodium 50 ml @ As Directed STK-MED ONCE 07/22/18 12:45 07/22/18 12:46 DC Ceftaroline Fosamil 400 mg/ Sodium Chloride 250 ml @ 250 mls/hr Q12HR 07/22/18 14:00 07/27/18 21:25 250 MLS/HR Clotrimazole (Mycelex) 10 mg 5XDAY 07/16/18 14:00 07/28/18 05:48 10 MG Darbepoetin Avery (Aranesp) 60 mcg WEEKLYHS 07/22/18 21:00 07/22/18 21:49 60 MCG Diphenhydramine HCl (Benadryl) 25 mg 1X PRN PRN 07/24/18 13:45 07/25/18 13:44 DC Fentanyl Citrate (Fentanyl 2ml Vial) 50 mcg PRN Q5MIN PRN 07/24/18 07:00 07/25/18 06:59 DC Info (PHARMACY MONITORING -- do not chart) 1 each PRN DAILY PRN 07/24/18 13:45 07/24/18 13:45 DC Labetalol HCl (Normodyne Iv Push) 10 mg PRN Q2HR PRN 07/23/18 09:30 Lactobacillus Rhamnosus (Culturelle) 1 cap BID 07/16/18 21:00 07/27/18 09:51 1 CAP Lidocaine HCl (Glydo (Lidocaine) Jelly) 1 rolly 1X ONCE 07/24/18 12:00 07/24/18 12:01 DC 07/24/18 13:10 1 ROLLY Lidocaine HCl (Lidocaine 1% 20ml Vial) 20 ml 1X ONCE 07/22/18 13:30 07/22/18 13:31 DC 07/22/18 13:27 9 ML Lidocaine HCl (Viscous Lidocaine) 15 ml 1X ONCE 07/24/18 12:00 07/24/18 12:01 DC 07/24/18 13:12 15 ML Lidocaine HCl (Xylocaine 2% Topical 5gm Tube) 1 rolly 1X ONCE 07/24/18 12:00 07/24/18 12:01 DC Lidocaine HCl (Xylocaine-Mpf 1% 2ml Vial) 2 ml PRN 1X PRN 07/24/18 07:00 07/25/18 06:59 DC Lidocaine/ Epinephrine (LIDOCAINE 1%-EPI 1:100,000 Multi-Dose) 20 ml STK-MED ONCE 07/22/18 11:46 07/22/18 11:47 DC Loperamide HCl (Imodium) 2 mg 1X ONCE 07/25/18 11:15 07/25/18 11:16 DC 07/25/18 12:47 2 MG Megestrol Acetate (Megace) 40 mg BID 07/15/18 09:00 07/27/18 09:51 40 MG Midazolam HCl (Versed) 2 mg 1X ONCE 07/22/18 13:30 07/22/18 13:31 DC 07/22/18 13:28 0.5 MG Mirtazapine (Remeron) 15 mg QHS 07/14/18 22:00 07/25/18 20:54 15 MG Morphine Sulfate (Morphine Sulfate) 2 mg PRN Q2HR PRN 07/14/18 17:15 07/15/18 17:14 DC Non-Formulary Medication (Mirtazapine ) 1 tab QHS 07/15/18 21:00 UNV Nystatin (Mycostatin) 1 rolly BID 07/23/18 21:00 07/27/18 21:25 1 ROLLY Ondansetron HCl (Zofran Odt) 4 mg PRN Q6HRS PRN 07/23/18 09:30 07/26/18 16:12 4 MG Ondansetron HCl (Zofran) 4 mg PRN Q6HRS PRN 07/24/18 07:00 07/25/18 06:59 DC Phytonadione (Mephyton Oral Soln) 5 mg 1X ONCE 07/14/18 22:00 07/14/18 22:01 DC 07/14/18 22:14 5 MG Piperacillin Sod/ Tazobactam Sod 4.5 gm/Sodium Chloride 100 ml @ 200 mls/hr 1X ONCE 07/14/18 15:00 07/14/18 15:29 DC 07/14/18 15:58 200 MLS/HR Potassium Chloride (Klor-Con) 40 meq AFTRNOON 07/19/18 13:00 07/23/18 15:10 40 MEQ Prochlorperazine Edisylate (Compazine) 5 mg PACU PRN PRN 07/24/18 07:00 07/25/18 06:59 DC Propofol (Diprivan) 200 mg STK-MED ONCE 07/24/18 13:00 07/25/18 08:16 DC Ringer's Solution 1,000 ml @ 30 mls/hr Q24H 07/24/18 07:00 07/24/18 18:59 DC Ropinirole HCl (Requip) 1 mg PRN QEVNG PRN 07/16/18 20:00 07/26/18 17:46 1 MG Sertraline HCl (Zoloft) 100 mg DAILY 07/15/18 09:00 07/27/18 09:50 100 MG Simethicone (Gas-X) 80 mg PRN AFTMEALHC PRN 07/26/18 15:45 07/26/18 16:12 80 MG Sodium Chloride 1,000 ml @ 400 mls/hr Q2H30M PRN 07/24/18 13:36 07/25/18 01:35 DC Sodium Chloride (Normal Saline Flush) 10 ml 1X PRN PRN 07/24/18 13:45 07/25/18 13:44 DC Tramadol HCl (Ultram) 50 mg PRN Q6HRS PRN 07/23/18 09:30 Vancomycin HCl (Vanco Per Pharmacy) 1 each PRN DAILY PRN 07/14/18 14:45 07/27/18 08:37 1 EACH Vancomycin HCl (Vancomycin Random Level) 1 each 1X ONCE 07/27/18 06:00 07/27/18 06:02 DC 07/27/18 06:00 1 EACH Vancomycin HCl (Vancomycin Oral Solution) 125 mg Q6HRS 07/17/18 00:00 07/28/18 05:47 125 MG Vancomycin HCl 1.25 gm/Sodium Chloride 250 ml @ 166.667 mls/hr 1X ONCE 07/14/18 15:00 07/14/18 16:29 DC 07/14/18 18:10 166.667 MLS/HR Vancomycin HCl 500 mg/Sodium Chloride 100 ml @ 100 mls/hr QTUTHSA 07/29/18 16:00 07/29/18 16:00 DC Vancomycin HCl 750 mg/Sodium Chloride 250 ml @ 250 mls/hr 1X ONCE 07/21/18 16:00 07/21/18 16:59 Cancel Vitamin B Complex (Folbic Tablet) 1 tab DAILY 07/15/18 09:00 07/27/18 09:50 1 TAB Vitamin B Complex/ Vitamin C (Dinorah-Ralph) 1 tab QPM 07/15/18 18:00 07/27/18 18:31 1 TAB Labs: Lab Laboratory Tests Test 07/28/18 07:20 White Blood Count 13.8 x10^3/uL (4.0-11.0) Red Blood Count 2.69 x10^6/uL (3.50-5.40) Hemoglobin 7.2 g/dL (12.0-15.5) Hematocrit 23.1 % (36.0-47.0) Mean Corpuscular Volume 86 fL (79-100) Mean Corpuscular Hemoglobin 27 pg (25-35) Mean Corpuscular Hemoglobin Concent 31 g/dL (31-37) Red Cell Distribution Width 17.9 % (11.5-14.5) Platelet Count 417 x10^3/uL (140-400) Neutrophils (%) (Auto) 82 % (31-73) Lymphocytes (%) (Auto) 10 % (24-48) Monocytes (%) (Auto) 5 % (0-9) Eosinophils (%) (Auto) 2 % (0-3) Basophils (%) (Auto) 1 % (0-3) Neutrophils # (Auto) 11.2 x10^3uL (1.8-7.7) Lymphocytes # (Auto) 1.4 x10^3/uL (1.0-4.8) Monocytes # (Auto) 0.7 x10^3/uL (0.0-1.1) Eosinophils # (Auto) 0.3 x10^3/uL (0.0-0.7) Basophils # (Auto) 0.1 x10^3/uL (0.0-0.2) Objective: Assessment: MRSA (R tetra) bacteremia POA 07/14 - repeat BC 07/18 and 07/20 positive, - BC neg from 07/24 NGTD - 2D echo neg vegetation; on 07/24 RAMON showed HD catheter w/ large mobile vegetation or thrombus (measuring at least 2.5 x 1.1 cm) extending into the RA. -s/p tunneled HDC line removal on 07/18. s/p replacement 07/23 C. difficile from 07/16 positive Thrush - better Anemia - S/p PRBCs Leukocytosis CKD on HD Severe Protein malnutrition Failure to thrive. Plan: Plan of Care Cont po/IV Vanc and ceftaroline, latter 2 drugs renal dosing Probiotics f/u cultures Contact isolation GIANFRANCO GOLD MD Jul 28, 2018 09:12
[2018-07-28 09:14] LABS: ALBUMIN 1.2 g/dL (3.4-5.0); CALCIUM 8.9 mg/dL (8.5-10.1); CREATININE 2.7 mg/dL (0.6-1.0); GFR 17.4; PHOSPHORUS 3.5 mg/dL (2.6-4.7)
[2018-07-28] MEDS: CEFTAROLINE FOSAMIL IV SCH ×2 (09:38→21:23)
[2018-07-28] MEDS: NORMAL SALINE IV SCH ×2 (09:38→21:23)
--- NOTE | 2018-07-28 10:05 | PDOC ---
PROGRESS NOTES Chief Complaint Chief Complaint impression Staph bacteremia with severe risk of complications 2D echo neg vegetation; on 07/24 RAMON showed HD catheter w/ large mobile vegetation or thrombus (measuring at least 2.5 x 1.1 cm) extending into the RA. -s/p tunneled HDC line removal on 07/18. s/p replacement 07/23 C. difficile from 07/16 positive ESRD on dialysis Anemia of ESRD Leukocytosis/sepsis C. difficile DNR Hyponatremia Hyperkalemia Vascular dementia HTN Anxiety Depression noncompliance with PT/OT 07/25 07/27 still not eating well, noncompliant 07/28 NOT IMPROVED FAR COMPLIANCE, POOR APPETITE 07/28 Problem List (body system elements) * Impaired fnctnl mobility * Strength * Balance * Knowledge-safe techniques NEEDS SNF History of Present Illness History of Present Illness dialysis catheter inserted Blood cultures are positive - staph bacteremia many bottles ID FOLLOWING Patient on vancomycin No fever, WBC 18.9 Hemoglobin 6.9-possibly overnight MD ordered blood transfusion NOW 8 Potassium 5, sodium 126 On contact Isol because of bacteremia and C. difficile positivity Palliative note reviewed, patient wishes to continue dialysis 07/25 Earlier entry: 72 yo f w/ PMHx CVA with vascular dementia, HTN, anxiety, depression, end-stage renal disease on dialysis Saturday, Saturday, (new 2018), last dialyzed on Saturday who p/w fever, decreased appetite, fever, decreased energy/ weakness, symptoms began 3 days ago. Found with Hb of 5.6 in ED, transfused PRBC to 7.5. She was noted with loose stools as well. She has history dementia but she is alert to person only, but is able to carry on a conversation and give some health history. She does not refuse dialysis every day. She was seen here this past January 2018 and May 2018 and sent home with home health ([id number]). She has a DPOA, Ivy the nephew has been texting who has been informed of hospital admission. 07/15: Seen on dialysis today. She has some chills with this. Notably, lab called about 3/4 bottles positive on blood culture for GPC in clusters. 07/16: Feeling terrible today. Has diarrhea x2 POSITIVE FOR C. DIFFICILE. She has bilateral LQ pain. Started on oral vancomycin and continued on IV Vancomycin 07/17: Still with poor PO intake 07/18: HD catheter pulled. Culture looks like MRSA 07/19: Still not eating, started PPN. Still with repeat blood cultures 1/4 bottles positive 07/21 DECISION FOR PALLIATIVE CARE Needed GRAM POSITIVE COCCI IN CLUSTERS, SUGGESTIVE OF STAPH, IN 4 OF 5 BOTTLES, 3 SETS DRAWN ON 07/20/18. ALL 3 SETS ARE POSITIVE. Still with some loose stools. Positive 2/4 repeat blood cultures after line was pulled. Denies SOB and CP. She does have some catheter site pain where it was pulled. 07/25 NONCOMPLIANT WITH PT/OT, BLOOD CUL PENDING, REPEAT, high risk of complications due to noncompliance per my personal review of chart 07/26 [facility] NONFUNCTIONAL. NEW [facility]ATH SATURDAY refusing to eat lunch today, bp uncontrolled PLAN: MIght neeed RAMON - r.o IE COnt vanc for now HD per renal Supprotive meds DNR pt/ot NEW [facility]ATH TODAY 07/28 planned Vitals Vitals Vital Signs Date Time Temp Pulse Resp B/P (MAP) Pulse Ox O2 Delivery O2 Flow Rate FiO2 07/28/18 08:44 96 Room Air 07/28/18 07:00 98.3 86 18 124/94 (104) 98.3 07/28/18 03:00 4.0 Physical Exam Physical Exam GENERAL: Lying down, weak appearing sad affect HEENT: Pupils are equal and reactive, with normal conjunctivae. + dentures NECK: Supple. LUNGS: Clear to auscultation. HEART: S1, S2. ABDOMEN: Soft and nontender. No guarding or rebound. EXTREMITIES: No clubbing, cyanosis or gross edema. SKIN: Warm to touch, no signs of rash. NEUROLOGIC: Arouses to voice, quiet Right chest hemodialysis catheter - clean General: Alert, Oriented X3, No acute distress, Other (poorly oriented) Heart: Regular rate, Normal S1 Lungs: Clear Abdomen: Normal bowel sounds, Soft, No tenderness Extremities: No clubbing, No cyanosis, Normal pulses Skin: No rashes, No significant lesion Labs LABS Laboratory Tests Test 07/28/18 07:20 White Blood Count 13.8 x10^3/uL (4.0-11.0) Red Blood Count 2.69 x10^6/uL (3.50-5.40) Hemoglobin 7.2 g/dL (12.0-15.5) Hematocrit 23.1 % (36.0-47.0) Mean Corpuscular Volume 86 fL (79-100) Mean Corpuscular Hemoglobin 27 pg (25-35) Mean Corpuscular Hemoglobin Concent 31 g/dL (31-37) Red Cell Distribution Width 17.9 % (11.5-14.5) Platelet Count 417 x10^3/uL (140-400) Neutrophils (%) (Auto) 82 % (31-73) Lymphocytes (%) (Auto) 10 % (24-48) Monocytes (%) (Auto) 5 % (0-9) Eosinophils (%) (Auto) 2 % (0-3) Basophils (%) (Auto) 1 % (0-3) Neutrophils # (Auto) 11.2 x10^3uL (1.8-7.7) Lymphocytes # (Auto) 1.4 x10^3/uL (1.0-4.8) Monocytes # (Auto) 0.7 x10^3/uL (0.0-1.1) Eosinophils # (Auto) 0.3 x10^3/uL (0.0-0.7) Basophils # (Auto) 0.1 x10^3/uL (0.0-0.2) Sodium Level 130 mmol/L (136-145) Potassium Level 5.0 mmol/L (3.5-5.1) Chloride Level 99 mmol/L (98-107) Carbon Dioxide Level 19 mmol/L (21-32) Anion Gap 12 (6-14) Blood Urea Nitrogen 28 mg/dL (7-20) Creatinine 2.7 mg/dL (0.6-1.0) Estimated GFR (Cockcroft-Gault) 17.4 Glucose Level 83 mg/dL (70-99) Calcium Level 8.9 mg/dL (8.5-10.1) Phosphorus Level 3.5 mg/dL (2.6-4.7) Albumin 1.2 g/dL (3.4-5.0) Assessment and Plan Assessmemt and Plan Problems Medical Problems: (1) End stage renal disease Status: Acute (2) Generalized weakness Status: Acute * Discussion Problem List (body system elements) * Impaired fnctnl mobility * Strength * Balance * Knowledge-safe techniques Pt/caregiver agrees with plan of care/goals * Yes Patient condition at conclusion of therapy * Pt in chair * Personal alarm on * Call light in reach * Phone in reach * PtIn no apparent distress * Pt denies further needs * RN/RN TRANSITION with patient Communicated Patient Care With (Name, Title) * Beronica GARCIA Goal 1 - Bed Mobility Assistance Required * Independent Goal 1 Assessment * Appropriate - Continue Goal 2 - Transfers Assistance Required * Independent Goal 2 - Transfer Type * Sit to Stand Goal 2 Assessment * Appropriate - Continue Goal 3 - Ambulation Assistance Required * Independent Goal 3 - Ambulation Distance * 25' Goal 3 - Ambulation Device * Roller Walker Goal 3 Assessment * Goal Revised Treatment Plan * Therapeutic Exercise * Bed Mobility Training * Transfer training * Gait Training * Dynamic Balance Training Frequency of Treatment Expected * 6 visits/week Duration of Treatment Expected * 2 weeks Discharge Recommendations * Longterm Unit Discharge Recommendation - DME * Rolling Walker needed * in order to complete ADLs * and ambulation safely Discharge Recommendation Comments * Upgrade dc plans w/ progress. Comment Review of Relevant I have reviewed the following items linda (where applicable) has been applied. Labs Laboratory Tests Test 07/27/18 07:00 07/28/18 07:20 White Blood Count 14.3 x10^3/uL (4.0-11.0) 13.8 x10^3/uL (4.0-11.0) Red Blood Count 2.69 x10^6/uL (3.50-5.40) 2.69 x10^6/uL (3.50-5.40) Hemoglobin 7.3 g/dL (12.0-15.5) 7.2 g/dL (12.0-15.5) Hematocrit 23.0 % (36.0-47.0) 23.1 % (36.0-47.0) Mean Corpuscular Volume 85 fL (79-100) 86 fL (79-100) Mean Corpuscular Hemoglobin 27 pg (25-35) 27 pg (25-35) Mean Corpuscular Hemoglobin Concent 32 g/dL (31-37) 31 g/dL (31-37) Red Cell Distribution Width 17.5 % (11.5-14.5) 17.9 % (11.5-14.5) Platelet Count 434 x10^3/uL (140-400) 417 x10^3/uL (140-400) Neutrophils (%) (Auto) 81 % (31-73) 82 % (31-73) Lymphocytes (%) (Auto) 11 % (24-48) 10 % (24-48) Monocytes (%) (Auto) 5 % (0-9) 5 % (0-9) Eosinophils (%) (Auto) 2 % (0-3) 2 % (0-3) Basophils (%) (Auto) 1 % (0-3) 1 % (0-3) Neutrophils # (Auto) 11.6 x10^3uL (1.8-7.7) 11.2 x10^3uL (1.8-7.7) Lymphocytes # (Auto) 1.6 x10^3/uL (1.0-4.8) 1.4 x10^3/uL (1.0-4.8) Monocytes # (Auto) 0.7 x10^3/uL (0.0-1.1) 0.7 x10^3/uL (0.0-1.1) Eosinophils # (Auto) 0.3 x10^3/uL (0.0-0.7) 0.3 x10^3/uL (0.0-0.7) Basophils # (Auto) 0.1 x10^3/uL (0.0-0.2) 0.1 x10^3/uL (0.0-0.2) Prothrombin Time 14.7 SEC (11.7-14.0) Prothromb Time International Ratio 1.2 (0.8-1.1) Sodium Level 134 mmol/L (136-145) 130 mmol/L (136-145) Potassium Level 4.2 mmol/L (3.5-5.1) 5.0 mmol/L (3.5-5.1) Chloride Level 101 mmol/L (98-107) 99 mmol/L (98-107) Carbon Dioxide Level 22 mmol/L (21-32) 19 mmol/L (21-32) Anion Gap 11 (6-14) 12 (6-14) Blood Urea Nitrogen 24 mg/dL (7-20) 28 mg/dL (7-20) Creatinine 2.5 mg/dL (0.6-1.0) 2.7 mg/dL (0.6-1.0) Estimated GFR (Cockcroft-Gault) 19.0 17.4 BUN/Creatinine Ratio 10 (6-20) Glucose Level 95 mg/dL (70-99) 83 mg/dL (70-99) Calcium Level 9.2 mg/dL (8.5-10.1) 8.9 mg/dL (8.5-10.1) Total Bilirubin 0.2 mg/dL (0.2-1.0) Aspartate Amino Transf (AST/SGOT) 16 U/L (15-37) Alanine Aminotransferase (ALT/SGPT) 8 U/L (14-59) Alkaline Phosphatase 100 U/L (46-116) Total Protein 6.3 g/dL (6.4-8.2) Albumin 1.3 g/dL (3.4-5.0) 1.2 g/dL (3.4-5.0) Albumin/Globulin Ratio 0.3 (1.0-1.7) Random Vancomycin Level 15.4 mcg/mL Phosphorus Level 3.5 mg/dL (2.6-4.7) Laboratory Tests Test 07/28/18 07:20 White Blood Count 13.8 x10^3/uL (4.0-11.0) Red Blood Count 2.69 x10^6/uL (3.50-5.40) Hemoglobin 7.2 g/dL (12.0-15.5) Hematocrit 23.1 % (36.0-47.0) Mean Corpuscular Volume 86 fL (79-100) Mean Corpuscular Hemoglobin 27 pg (25-35) Mean Corpuscular Hemoglobin Concent 31 g/dL (31-37) Red Cell Distribution Width 17.9 % (11.5-14.5) Platelet Count 417 x10^3/uL (140-400) Neutrophils (%) (Auto) 82 % (31-73) Lymphocytes (%) (Auto) 10 % (24-48) Monocytes (%) (Auto) 5 % (0-9) Eosinophils (%) (Auto) 2 % (0-3) Basophils (%) (Auto) 1 % (0-3) Neutrophils # (Auto) 11.2 x10^3uL (1.8-7.7) Lymphocytes # (Auto) 1.4 x10^3/uL (1.0-4.8) Monocytes # (Auto) 0.7 x10^3/uL (0.0-1.1) Eosinophils # (Auto) 0.3 x10^3/uL (0.0-0.7) Basophils # (Auto) 0.1 x10^3/uL (0.0-0.2) Sodium Level 130 mmol/L (136-145) Potassium Level 5.0 mmol/L (3.5-5.1) Chloride Level 99 mmol/L (98-107) Carbon Dioxide Level 19 mmol/L (21-32) Anion Gap 12 (6-14) Blood Urea Nitrogen 28 mg/dL (7-20) Creatinine 2.7 mg/dL (0.6-1.0) Estimated GFR (Cockcroft-Gault) 17.4 Glucose Level 83 mg/dL (70-99) Calcium Level 8.9 mg/dL (8.5-10.1) Phosphorus Level 3.5 mg/dL (2.6-4.7) Albumin 1.2 g/dL (3.4-5.0) Microbiology 07/24/18 Blood Culture - Preliminary, Resulted NO GROWTH AFTER 3 DAYS 07/14/18 Urine Culture - Final, Complete 07/14/18 Urine Culture Result 1 (MARYANN) - Final, Complete Medications Current Medications Piperacillin Sod/ Tazobactam Sod 4.5 gm/Sodium Chloride 100 ml @ 200 mls/hr 1X ONCE IV Last administered on 07/14/18at 15:58; Start 07/14/18 at 15:00; Stop 07/14/18 at 15:29; Status DC Vancomycin HCl (Vanco Per Pharmacy) 1 each PRN DAILY PRN MC SEE COMMENTS Last administered on 07/27/18at 08:37; Start 07/14/18 at 14:45 Vancomycin HCl 1.25 gm/Sodium Chloride 250 ml @ 166.667 mls/hr 1X ONCE IV Last administered on 07/14/18at 18:10; Start 07/14/18 at 15:00; Stop 07/14/18 at 16:29; Status DC Ondansetron HCl (Zofran) 4 mg PRN Q8HRS PRN IV NAUSEA/VOMITING; Start 07/14/18 at 17:15; Stop 07/15/18 at 17:14; Status DC Morphine Sulfate (Morphine Sulfate) 2 mg PRN Q2HR PRN IV PAIN; Start 07/14/18 at 17:15; Stop 07/15/18 at 17:14; Status DC Acetaminophen (Tylenol) 650 mg PRN Q4HRS PRN PO FEVER; Start 07/14/18 at 17:15 ; Stop 07/15/18 at 17:14; Status DC Vancomycin HCl (Vancomycin Random Level) 1 each 1X ONCE MC ; Start 07/15/18 at 06:00; Stop 07/15/18 at 06:01; Status DC Vitamin B Complex/ Vitamin C (Dinorah-Ralph) 1 tab QPM PO Last administered on 18:31; Start 07/15/18 at 18:00 Megestrol Acetate (Megace) 40 mg BID PO Last administered on 07/27/18 09:51; Start 07/15/18 at 09:00 Mirtazapine (Remeron) 15 mg QHS PO Last administered on 07/25/18 20:54; Start 07/14/18 at 22:00 Non-Formulary Medication (Mirtazapine ) 1 tab QHS PO ; Start 07/15/18 at 21:00; Status UNV Ropinirole HCl (Requip) 3 mg BID PO Last administered on 07/16/18 18:21; Start 07/14/18 at 22:00; Stop 07/16/18 at 19:54; Status DC Sertraline HCl (Zoloft) 100 mg DAILY PO Last administered on 07/27/18 09:50; Start 07/15/18 at 09:00 Phytonadione (Mephyton Oral Soln) 5 mg 1X ONCE PO Last administered on 22:14; Start 07/14/18 at 22:00; Stop 07/14/18 at 22:01; Status DC Vitamin B Complex (Folbic Tablet) 1 tab DAILY PO Last administered on 07/27/18 09:50; Start 07/15/18 at 09:00 Albuterol/ Ipratropium (Duoneb) 3 ml RTBID NEB Last administered on 07/28/18 08 :42; Start 07/15/18 at 08:00 Sodium Chloride 1,000 ml @ 1,000 mls/hr Q1H PRN IV hypotension; Start 07/15/18 at 10:48; Stop 07/15/18 at 16:47; Status DC Albumin Human 200 ml @ 200 mls/hr 1X PRN PRN IV Hypotension; Start 07/15/18 at 11:00; Stop 07/15/18 at 16:59; Status DC Sodium Chloride 1,000 ml @ 400 mls/hr Q2H30M PRN IV PATENCY; Start 07/15/18 at 10:48; Stop 07/15/18 at 22:47; Status DC Info (PHARMACY MONITORING -- do not chart) 1 each PRN DAILY PRN MC SEE COMMENTS ; Start 07/15/18 at 11:00; Status UNV Info (PHARMACY MONITORING -- do not chart) 1 each PRN DAILY PRN MC SEE COMMENTS ; Start 07/15/18 at 11:00; Stop 07/22/18 at 14:31; Status DC Vancomycin HCl 500 mg/Sodium Chloride 100 ml @ 100 mls/hr QTUTHSA IV Last administered on 07/17/18 16:44; Start 07/17/18 at 16:00; Stop 07/18/18 at 15:41 ; Status DC Lactobacillus Rhamnosus (Culturelle) 1 cap BID PO Last administered on 09:51; Start 07/16/18 at 21:00 Clotrimazole (Mycelex) 10 mg 5XDAY MM Last administered on 07/28/18 05:48; Start 07/16/18 at 14:00 Ropinirole HCl (Requip) 3 mg DAILY PO Last administered on 07/27/18 09:50; Start 07/17/18 at 09:00 Ropinirole HCl (Requip) 2 mg QHS PO Last administered on 07/25/18 20:53; Start 07/16/18 at 21:00 Ropinirole HCl (Requip) 1 mg PRN QEVNG PRN PO RLS Last administered on 17:46; Start 07/16/18 at 20:00 Vancomycin HCl (Vancomycin Oral Solution) 125 mg Q6HRS PO Last administered on 3/4/19at 05:47; Start 07/17/18 at 00:00 Sodium Chloride 1,000 ml @ 1,000 mls/hr Q1H PRN IV hypotension; Start 07/17/18 at 14:55; Stop 07/17/18 at 20:54; Status DC Sodium Chloride 1,000 ml @ 400 mls/hr Q2H30M PRN IV PATENCY; Start 07/17/18 at 14:55; Stop 07/18/18 at 02:54; Status DC Info (PHARMACY MONITORING -- do not chart) 1 each PRN DAILY PRN MC SEE COMMENTS ; Start 07/17/18 at 15:00; Stop 07/17/18 at 15:00; Status DC Info (PHARMACY MONITORING -- do not chart) 1 each PRN DAILY PRN MC SEE COMMENTS ; Start 07/17/18 at 15:00; Stop 07/17/18 at 15:00; Status DC Sodium Chloride 1,000 ml @ 1,000 mls/hr Q1H PRN IV hypotension; Start 07/18/18 at 11:30; Stop 07/18/18 at 17:29; Status DC Sodium Chloride 1,000 ml @ 400 mls/hr Q2H30M PRN IV PATENCY; Start 07/18/18 at 11:30; Stop 07/18/18 at 23:29; Status DC Info (PHARMACY MONITORING -- do not chart) 1 each PRN DAILY PRN MC SEE COMMENTS ; Start 07/18/18 at 12:30; Status UNV Info (PHARMACY MONITORING -- do not chart) 1 each PRN DAILY PRN MC SEE COMMENTS ; Start 07/18/18 at 12:30; Status UNV Vancomycin HCl 500 mg/Sodium Chloride 100 ml @ 100 mls/hr 1X ONCE IV Last administered on 07/18/18at 16:40; Start 07/18/18 at 16:00; Stop 07/18/18 at 16:59 ; Status DC Amino Acids/ Glycerin/ Electrolytes 1,000 ml @ 80 mls/hr [id number] IV Last administered on 07/28/18at 02:31; Start 07/19/18 at 11:45 Potassium Chloride (Klor-Con) 40 meq AFTRNOON PO Last administered on at 15:10; Start 07/19/18 at 13:00 Vancomycin HCl 500 mg/Sodium Chloride 100 ml @ 100 mls/hr 1X ONCE IV ; Start 07/21/18 at 16:00; Stop 07/21/18 at 16:59; Status Cancel Acetaminophen/ Hydrocodone Bitart (Lortab 5/325) 1 tab PRN Q6HRS PRN PO SEVERE PAIN; Start 07/19/18 at 20:00 Sodium Chloride 1,000 ml @ 1,000 mls/hr Q1H PRN IV hypotension; Start 07/21/18 at 12:29; Stop 07/21/18 at 18:28; Status DC Sodium Chloride (Normal Saline Flush) 10 ml 1X PRN PRN IV AP catheter pack; Start 07/21/18 at 12:30; Stop 07/22/18 at 12:29; Status DC Sodium Chloride (Normal Saline Flush) 10 ml 1X PRN PRN IV [employer] catheter pack; Start 07/21/18 at 12:30; Stop 07/22/18 at 12:29; Status DC Sodium Chloride 1,000 ml @ 400 mls/hr Q2H30M PRN IV PATENCY; Start 07/21/18 at 12:29; Stop 07/22/18 at 00:28; Status DC Info (PHARMACY MONITORING -- do not chart) 1 each PRN DAILY PRN MC SEE COMMENTS ; Start 07/21/18 at 12:30; Status UNV Info (PHARMACY MONITORING -- do not chart) 1 each PRN DAILY PRN MC SEE COMMENTS ; Start 07/21/18 at 12:30; Status Cancel Vancomycin HCl 750 mg/Sodium Chloride 250 ml @ 250 mls/hr 1X ONCE IV ; Start 07/21/18 at 16:00; Stop 07/21/18 at 16:59; Status Cancel Vancomycin HCl 500 mg/Sodium Chloride 100 ml @ 100 mls/hr 1X ONCE IV Last administered on 07/21/18at 21:35; Start 07/21/18 at 18:30; Stop 07/21/18 at 19:29 ; Status DC Lidocaine/ Epinephrine (LIDOCAINE 1%-EPI 1:100,000 Multi-Dose) 20 ml STK-MED ONCE .ROUTE ; Start 07/22/18 at 11:46; Stop 07/22/18 at 11:47; Status DC Cefazolin Sodium 50 ml @ As Directed STK-MED ONCE IV ; Start 07/22/18 at 12:45; Stop 07/22/18 at 12:46; Status DC Midazolam HCl (Versed) 2 mg STK-MED ONCE .ROUTE ; Start 07/22/18 at 12:45; Stop 07/22/18 at 12:46; Status DC Fentanyl Citrate (Fentanyl 2ml Vial) 100 mcg STK-MED ONCE .ROUTE ; Start at 12:45; Stop 07/22/18 at 12:46; Status DC Vancomycin HCl 500 mg/Sodium Chloride 100 ml @ 100 mls/hr QTUTHSA IV Last administered on 07/24/18at 18:27; Start 07/22/18 at 16:00; Stop 07/26/18 at 14:45 ; Status DC Midazolam HCl (Versed) 2 mg 1X ONCE IV Last administered on 07/22/18at 13:28; Start 07/22/18 at 13:30; Stop 07/22/18 at 13:31; Status DC Fentanyl Citrate (Fentanyl 2ml Vial) 100 mcg 1X ONCE IV Last administered on at 13:27; Start 07/22/18 at 13:30; Stop 07/22/18 at 13:31; Status DC Lidocaine HCl (Lidocaine 1% 20ml Vial) 20 ml 1X ONCE INJ Last administered on 07/22/18at 13:27; Start 07/22/18 at 13:30; Stop 07/22/18 at 13:31; Status DC Ceftaroline Fosamil 400 mg/ Sodium Chloride 250 ml @ 250 mls/hr Q12HR IV Last administered on 07/28/18at 09:38; Start 07/22/18 at 14:00 Darbepoetin Avery (Aranesp) 60 mcg [id number] SQ Last administered on 07/22/18at 21 :49; Start 07/22/18 at 21:00 Sodium Chloride 1,000 ml @ 1,000 mls/hr Q1H PRN IV hypotension; Start 07/22/18 at 15:20; Stop 07/22/18 at 21:19; Status DC Albumin Human 200 ml @ 200 mls/hr 1X PRN PRN IV Hypotension; Start 07/22/18 at 15:30; Stop 07/22/18 at 21:29; Status DC Acetaminophen (Tylenol) 500 mg 1X PRN PRN PO MILD PAIN / TEMP; Start 07/22/18 at 15:30; Stop 07/23/18 at 15:29; Status DC Diphenhydramine HCl (Benadryl) 25 mg 1X PRN PRN IV ITCHING; Start 07/22/18 at 15:30; Stop 07/23/18 at 15:29; Status DC Diphenhydramine HCl (Benadryl) 25 mg 1X PRN PRN IV ITCHING; Start 07/22/18 at 15:30; Stop 07/23/18 at 15:29; Status DC Sodium Chloride (Normal Saline Flush) 10 ml 1X PRN PRN IV AP catheter pack; Start 07/22/18 at 15:30; Stop 07/23/18 at 15:29; Status DC Sodium Chloride (Normal Saline Flush) 10 ml 1X PRN PRN IV [employer] catheter pack; Start 07/22/18 at 15:30; Stop 07/23/18 at 15:29; Status DC Sodium Chloride 1,000 ml @ 400 mls/hr Q2H30M PRN IV PATENCY; Start 07/22/18 at 15:20; Stop 07/23/18 at 03:19; Status DC Info (PHARMACY MONITORING -- do not chart) 1 each PRN DAILY PRN MC SEE COMMENTS ; Start 07/22/18 at 15:30; Stop 07/22/18 at 15:30; Status DC Sodium Chloride 1,000 ml @ 1,000 mls/hr Q1H PRN IV hypotension; Start 07/23/18 at 07:00; Stop 07/23/18 at 12:59; Status DC Sodium Chloride 1,000 ml @ 400 mls/hr Q2H30M PRN IV PATENCY; Start 07/23/18 at 07:00; Stop 07/23/18 at 18:59; Status DC Info (PHARMACY MONITORING -- do not chart) 1 each PRN DAILY PRN MC SEE COMMENTS ; Start 07/23/18 at 09:00; Status UNV Info (PHARMACY MONITORING -- do not chart) 1 each PRN DAILY PRN MC SEE COMMENTS ; Start 07/23/18 at 09:00 Labetalol HCl (Normodyne Iv Push) 10 mg PRN Q2HR PRN IVP HYPERTENSION, SEE COMMENTS; Start 07/23/18 at 09:30 Acetaminophen (Tylenol) 500 mg PRN Q6HRS PRN PO MILD PAIN / TEMP; Start at 09:30 Ondansetron HCl (Zofran) 4 mg PRN Q6HRS PRN IV NAUSEA/VOMITING Last administered on 07/26/18at 16:17; Start 07/23/18 at 09:30 Ondansetron HCl (Zofran Odt) 4 mg PRN Q6HRS PRN PO NAUSEA/VOMITING Last administered on 07/26/18at 16:12; Start 07/23/18 at 09:30 Tramadol HCl (Ultram) 50 mg PRN Q6HRS PRN PO MODERATE PAIN; Start 07/23/18 at 09:30 Amlodipine Besylate (Norvasc) 10 mg DAILY PO Last administered on 07/27/18at 09: 51; Start 07/23/18 at 09:00 Ondansetron HCl (Zofran) 4 mg PRN Q6HRS PRN IV NAUSEA/VOMITING; Start 07/24/18 at 07:00; Stop 07/25/18 at 06:59; Status DC Fentanyl Citrate (Fentanyl 2ml Vial) 25 mcg PRN Q5MIN PRN IV MILD PAIN; Start 07/24/18 at 07:00; Stop 07/25/18 at 06:59; Status DC Fentanyl Citrate (Fentanyl 2ml Vial) 50 mcg PRN Q5MIN PRN IV MODERATE TO SEVERE PAIN; Start 07/24/18 at 07:00; Stop 07/25/18 at 06:59; Status DC Ringer's Solution 1,000 ml @ 30 mls/hr Q24H IV ; Start 07/24/18 at 07:00; Stop 07/24/18 at 18:59; Status DC Lidocaine HCl (Xylocaine-Mpf 1% 2ml Vial) 2 ml PRN 1X PRN ID PRIOR TO IV START ; Start 07/24/18 at 07:00; Stop 07/25/18 at 06:59; Status DC Prochlorperazine Edisylate (Compazine) 5 mg PACU PRN PRN IV NAUSEA, MRX1; Start 07/24/18 at 07:00; Stop 07/25/18 at 06:59; Status DC Vancomycin HCl 500 mg/Sodium Chloride 100 ml @ 100 mls/hr ONCE ONCE IV Last administered on 07/23/18at 17:23; Start 07/23/18 at 16:00; Stop 07/23/18 at 16:59 ; Status DC Nystatin (Mycostatin) 1 rolly BID TP Last administered on 07/27/18at 21:25; Start 07/23/18 at 21:00 Benzocaine (Hurricaine One) 1 spray STK-MED ONCE .ROUTE ; Start 07/24/18 at 11: 49; Stop 07/24/18 at 11:50; Status Cancel Lidocaine HCl (Viscous Lidocaine) 15 ml STK-MED ONCE .ROUTE ; Start 07/24/18 at 11:49; Stop 07/24/18 at 11:50; Status DC Lidocaine HCl (Xylocaine 2% Topical 5gm Tube) 1 rolly 1X ONCE TP ; Start at 12:00; Stop 07/24/18 at 12:01; Status DC Lidocaine HCl (Viscous Lidocaine) 15 ml 1X ONCE SWSW Last administered on 07/24at 13:12; Start 07/24/18 at 12:00; Stop 07/24/18 at 12:01; Status DC Benzocaine (Hurricaine One) 3 spray 1X ONCE MM Last administered on 07/24/18at 13:11; Start 07/24/18 at 12:00; Stop 07/24/18 at 12:01; Status DC Lidocaine HCl (Glydo (Lidocaine) Jelly) 1 rolly 1X ONCE MM Last administered on 07/24/18at 13:10; Start 07/24/18 at 12:00; Stop 07/24/18 at 12:01; Status DC Sodium Chloride 1,000 ml @ 1,000 mls/hr Q1H PRN IV hypotension; Start 07/24/18 at 13:36; Stop 07/24/18 at 19:35; Status DC Albumin Human 200 ml @ 200 mls/hr 1X PRN PRN IV Hypotension; Start 07/24/18 at 13:45; Stop 07/24/18 at 19:44; Status DC Acetaminophen (Tylenol) 500 mg 1X PRN PRN PO MILD PAIN / TEMP; Start 07/24/18 at 13:45; Stop 07/25/18 at 13:44; Status DC Diphenhydramine HCl (Benadryl) 25 mg 1X PRN PRN IV ITCHING; Start 07/24/18 at 13:45; Stop 07/25/18 at 13:44; Status DC Diphenhydramine HCl (Benadryl) 25 mg 1X PRN PRN IV ITCHING; Start 07/24/18 at 13:45; Stop 07/25/18 at 13:44; Status DC Sodium Chloride (Normal Saline Flush) 10 ml 1X PRN PRN IV AP catheter pack; Start 07/24/18 at 13:45; Stop 07/25/18 at 13:44; Status DC Sodium Chloride (Normal Saline Flush) 10 ml 1X PRN PRN IV [employer] catheter pack; Start 07/24/18 at 13:45; Stop 07/25/18 at 13:44; Status DC Sodium Chloride 1,000 ml @ 400 mls/hr Q2H30M PRN IV PATENCY; Start 07/24/18 at 13:36; Stop 07/25/18 at 01:35; Status DC Info (PHARMACY MONITORING -- do not chart) 1 each PRN DAILY PRN MC SEE COMMENTS ; Start 07/24/18 at 13:45; Stop 07/24/18 at 13:45; Status DC Propofol (Diprivan) 200 mg STK-MED ONCE IV ; Start 07/24/18 at 13:00; Stop at 08:16; Status DC Loperamide HCl (Imodium) 2 mg 1X ONCE PO Last administered on 07/25/18at 12:47; Start 07/25/18 at 11:15; Stop 07/25/18 at 11:16; Status DC Vancomycin HCl 500 mg/Sodium Chloride 100 ml @ 100 mls/hr QTUTHSA IV ; Start at 16:00; Stop 07/29/18 at 16:00; Status DC Vancomycin HCl (Vancomycin Random Level) 1 each 1X ONCE MC Last administered on 07/27/18at 06:00; Start 07/27/18 at 06:00; Stop 07/27/18 at 06:02; Status DC Simethicone (Gas-X) 80 mg PRN AFTMEALHC PRN PO GAS / BLOATING Last administered on 07/26/18at 16:12; Start 07/26/18 at 15:45 Active Scripts Active Reported Dialyvite Tablet (Folic Acid/Vitamin B Comp W-C) 1 Each Tablet 1 Each PO QPM QPM @ 1900 [hectorol] QTUTHSA [epogen] QTUTHSA Mirtazapine 15 Mg Tablet 1 Tab PO QHS Zoloft (Sertraline Hcl) 100 Mg Tablet 1 Tab PO DAILY Requip (Ropinirole Hcl) 1 Mg Tablet 3 Mg PO BID Mirtazapine 15 Mg Tablet 1 Tab PO QHS Megestrol Acetate 40 Mg Tablet 40 Mg PO BID Vitals/I & O Vital Sign - Last 24 Hours 07/27/18 07/27/18 07/27/18 07/27/18 11:00 15:00 19:00 20:00 Temp 98.2 98.2 98.0 98.2 98.2 98.0 Pulse 90 90 84 Resp 18 18 21 B/P (MAP) 141/79 (99) 145/70 (95) 157/80 (105) Pulse Ox 95 94 98 95 O2 Delivery Room Air Room Air Room Air Room Air O2 Flow Rate 4.0 07/27/18 07/27/18 07/28/18 07/28/18 20:30 23:00 03:00 07:00 Temp 97.6 97.6 98.3 97.6 97.6 98.3 Pulse 88 85 86 Resp 18 18 18 B/P (MAP) 113/58 (76) 129/63 (85) 124/94 (104) Pulse Ox 95 95 98 O2 Delivery Room Air Room Air Room Air Room Air O2 Flow Rate 4.0 4.0 07/28/18 08:44 Pulse Ox 96 O2 Delivery Room Air Intake and Output 07/27/18 07/27/18 07/28/18 15:00 23:00 07:00 Intake Total 400 ml 100 ml Balance 400 ml 100 ml Nutrition Consultation Dietary Evaluation: Recommendations by RD: PPN/TPN, Add supplement feedings Comments: day 5 PPN - continue until po intake improves to > 50% meals continue nepro bid encourage po intake Expected Outcomes/Goals: po intake to improve to 50% of meals- goal ongoing Interpretation of weight loss: >1-2% in 1 week Malnutrition Findings: Food and Nutrition Intake (Sev: <50% est energy req 5days Body Fat Depletion (Non Severe: Mod to Severe Weight Status: Underweight LIBERTY MUNGUIA MD Jul 28, 2018 10:05
[2018-07-28] MEDS ORDERED: LIDOCAINE 1%/EPI 1:100,000 20 ML VIAL. ONE (10:36)
[2018-07-28] MEDS ORDERED: HEPARIN for IV BOLUS 10,000 UNIT/10 ML VIAL. ONE (10:38)
[2018-07-28] MEDS ORDERED: HEPARIN for ARTERIAL LINE 0 ML ONE (10:39)
[2018-07-28 11:00] VITALS: BP 102/75
--- NOTE | 2018-07-28 11:16 | NUR ---
Patient in IR to check HD catheter, great blood return from HD Catheter and xray showed great position. Report called to RADHA Loco on . No changes made to HD Catheter.
[2018-07-28] MEDS ORDERED: IV NORMAL SALINE 1000ML BAG 1,000 ML IV PRN (12:54)
[2018-07-28] MEDS ORDERED: 0.9 % SODIUM CHLORIDE 10 ML DISP.SYRIN. IV PRN ×2 (13:00)
[2018-07-28] MEDS: POTASSIUM CHLORIDE 20 MEQ TABLET.ER. PO SCH (13:00)
[2018-07-28] MEDS ORDERED: DIALYSIS PATIENT. MC PRN ×2 (13:00)
--- NOTE | 2018-07-28 13:54 | NUR ---
SW following for discharge planning. Discussed with RN. Pt possibly having HD cath procedure today. SW will continue to follow.
[2018-07-28] MEDS: VANCOMYCIN PER PHARMACY MC PRN (14:04)
[2018-07-28 15:46] VITALS: BP 191/136
--- NOTE | 2018-07-28 16:05 | PDOC ---
SUBJECTIVE ROS seen on HD, OBJECTIVE Vital Signs Vital Signs Date Time Temp Pulse Resp B/P (MAP) Pulse Ox O2 Delivery O2 Flow Rate FiO2 07/28/18 15:46 97.6 85 18 191/136 (154) 99 Room Air 97.6 07/28/18 03:00 4.0 I & 0 Intake and Output 07/28/18 07:00 Intake Total 500 ml Balance 500 ml Intake Oral 500 ml # Voids 2 # Bowel Movements 3 PHYSICAL EXAM Physical Exam GENERAL: nad HEENT: Pupils are equal and reactive, with normal conjunctivae. + dentures NECK: Supple. LUNGS: Clear to auscultation. HEART: S1, S2. ABDOMEN: Soft and nontender. No guarding or rebound. EXTREMITIES: No clubbing, cyanosis or gross edema. SKIN: Warm to touch, no signs of rash. NEUROLOGIC: Arouses to voice, Right chest hemodialysis catheter DIAGNOSIS/ASSESSMENT Assessment & Plan ESRD- On HD TTS Missed sat due to catheter issues seen on HD , Continue as ordered , hay Kyle RSA (R tetra) bacteremia POA 07/14 s/p tunneled HDC line removal on 07/18. s/p replacement 07/23 If Non functional will replace C. difficile from 07/16 positive An[facility] Severe Protein malnutrition Failure to thrive. COMMENT/RELEVANT DATA Meds Current Medications Medications (Trade) Dose Ordered Sig/Jaswinder Start Time Stop Time Status Last Admin Dose Admin Acetaminophen (Tylenol) 500 mg 1X PRN PRN 07/24/18 13:45 07/25/18 13:44 DC Acetaminophen/ Hydrocodone Bitart (Lortab 5/325) 1 tab PRN Q6HRS PRN 07/19/18 20:00 Albumin Human 200 ml @ 200 mls/hr 1X PRN PRN 07/24/18 13:45 07/24/18 19:44 DC Albuterol/ Ipratropium (Duoneb) 3 ml RTBID 07/15/18 08:00 07/28/18 08:42 3 ML Amino Acids/ Glycerin/ Electrolytes 1,000 ml @ 80 mls/hr [id number] 07/19/18 11:45 07/28/18 02:31 80 MLS/HR Amlodipine Besylate (Norvasc) 10 mg DAILY 07/23/18 09:00 07/27/18 09:51 10 MG Benzocaine (Hurricaine One) 3 spray 1X ONCE 07/24/18 12:00 07/24/18 12:01 DC 07/24/18 13:11 2 SPRAY Cefazolin Sodium 50 ml @ As Directed STK-MED ONCE 07/22/18 12:45 07/22/18 12:46 DC Ceftaroline Fosamil 400 mg/ Sodium Chloride 250 ml @ 250 mls/hr Q12HR 07/22/18 14:00 07/28/18 09:38 250 MLS/HR Clotrimazole (Mycelex) 10 mg 5XDAY 07/16/18 14:00 07/28/18 14:13 DC 07/28/18 05:48 10 MG Darbepoetin Avery (Aranesp) 60 mcg WEEKLYHS 07/22/18 21:00 07/22/18 21:49 60 MCG Diphenhydramine HCl (Benadryl) 25 mg 1X PRN PRN 07/24/18 13:45 07/25/18 13:44 DC Fentanyl Citrate (Fentanyl 2ml Vial) 50 mcg PRN Q5MIN PRN 07/24/18 07:00 07/25/18 06:59 DC Heparin Sodium (Porcine) (Heparin Sodium) 10,000 unit STK-MED ONCE 07/28/18 10:38 07/28/18 10:39 DC Heparin Sodium/ Sodium Chloride 0 ml @ As Directed STK-MED ONCE 07/28/18 10:39 07/28/18 10:40 DC Info (PHARMACY MONITORING -- do not chart) 1 each PRN DAILY PRN 07/28/18 13:00 Labetalol HCl (Normodyne Iv Push) 10 mg PRN Q2HR PRN 07/23/18 09:30 Lactobacillus Rhamnosus (Culturelle) 1 cap BID 07/16/18 21:00 07/27/18 09:51 1 CAP Lidocaine HCl (Glydo (Lidocaine) Jelly) 1 rolly 1X ONCE 07/24/18 12:00 07/24/18 12:01 DC 07/24/18 13:10 1 ROLLY Lidocaine HCl (Lidocaine 1% 20ml Vial) 20 ml 1X ONCE 07/22/18 13:30 07/22/18 13:31 DC 07/22/18 13:27 9 ML Lidocaine HCl (Viscous Lidocaine) 15 ml 1X ONCE 07/24/18 12:00 07/24/18 12:01 DC 07/24/18 13:12 15 ML Lidocaine HCl (Xylocaine 2% Topical 5gm Tube) 1 rolly 1X ONCE 07/24/18 12:00 07/24/18 12:01 DC Lidocaine HCl (Xylocaine-Mpf 1% 2ml Vial) 2 ml PRN 1X PRN 07/24/18 07:00 07/25/18 06:59 DC Lidocaine/ Epinephrine (LIDOCAINE 1%-EPI 1:100,000 Multi-Dose) 20 ml STK-MED ONCE 07/28/18 10:36 07/28/18 10:37 DC Loperamide HCl (Imodium) 2 mg 1X ONCE 07/25/18 11:15 07/25/18 11:16 DC 07/25/18 12:47 2 MG Megestrol Acetate (Megace) 40 mg BID 07/15/18 09:00 07/27/18 09:51 40 MG Midazolam HCl (Versed) 2 mg 1X ONCE 07/22/18 13:30 07/22/18 13:31 DC 07/22/18 13:28 0.5 MG Mirtazapine (Remeron) 15 mg QHS 07/14/18 22:00 07/25/18 20:54 15 MG Morphine Sulfate (Morphine Sulfate) 2 mg PRN Q2HR PRN 07/14/18 17:15 07/15/18 17:14 DC Non-Formulary Medication (Mirtazapine ) 1 tab QHS 07/15/18 21:00 UNV Nystatin (Mycostatin) 1 rolly BID 07/23/18 21:00 07/27/18 21:25 1 ROLLY Ondansetron HCl (Zofran Odt) 4 mg PRN Q6HRS PRN 07/23/18 09:30 07/26/18 16:12 4 MG Ondansetron HCl (Zofran) 4 mg PRN Q6HRS PRN 07/24/18 07:00 07/25/18 06:59 DC Phytonadione (Mephyton Oral Soln) 5 mg 1X ONCE 07/14/18 22:00 07/14/18 22:01 DC 07/14/18 22:14 5 MG Piperacillin Sod/ Tazobactam Sod 4.5 gm/Sodium Chloride 100 ml @ 200 mls/hr 1X ONCE 07/14/18 15:00 07/14/18 15:29 DC 07/14/18 15:58 200 MLS/HR Potassium Chloride (Klor-Con) 40 meq AFTRNOON 07/19/18 13:00 07/23/18 15:10 40 MEQ Prochlorperazine Edisylate (Compazine) 5 mg PACU PRN PRN 07/24/18 07:00 07/25/18 06:59 DC Propofol (Diprivan) 200 mg STK-MED ONCE 07/24/18 13:00 07/25/18 08:16 DC Ringer's Solution 1,000 ml @ 30 mls/hr Q24H 07/24/18 07:00 07/24/18 18:59 DC Ropinirole HCl (Requip) 1 mg PRN QEVNG PRN 07/16/18 20:00 07/26/18 17:46 1 MG Sertraline HCl (Zoloft) 100 mg DAILY 07/15/18 09:00 07/27/18 09:50 100 MG Simethicone (Gas-X) 80 mg PRN AFTMEALHC PRN 07/26/18 15:45 07/26/18 16:12 80 MG Sodium Chloride (Normal Saline Flush) 10 ml 1X PRN PRN 07/28/18 13:00 07/29/18 12:59 Tramadol HCl (Ultram) 50 mg PRN Q6HRS PRN 07/23/18 09:30 Vancomycin HCl (Vanco Per Pharmacy) 1 each PRN DAILY PRN 07/14/18 14:45 07/28/18 14:04 1 EACH Vancomycin HCl (Vancomycin Random Level) 1 each 1X ONCE 07/27/18 06:00 07/27/18 06:02 DC 07/27/18 06:00 1 EACH Vancomycin HCl (Vancomycin Oral Solution) 125 mg Q6HRS 07/17/18 00:00 07/28/18 12:19 125 MG Vancomycin HCl 1.25 gm/Sodium Chloride 250 ml @ 166.667 mls/hr 1X ONCE 07/14/18 15:00 07/14/18 16:29 DC 07/14/18 18:10 166.667 MLS/HR Vancomycin HCl 500 mg/Sodium Chloride 100 ml @ 100 mls/hr QMWF 07/28/18 16:00 Vancomycin HCl 750 mg/Sodium Chloride 250 ml @ 250 mls/hr 1X ONCE 07/21/18 16:00 07/21/18 16:59 Cancel Vitamin B Complex (Folbic Tablet) 1 tab DAILY 07/15/18 09:00 07/27/18 09:50 1 TAB Vitamin B Complex/ Vitamin C (Dinorah-Ralph) 1 tab QPM 07/15/18 18:00 07/27/18 18:31 1 TAB Lab Laboratory Tests Test 07/28/18 07:20 White Blood Count 13.8 x10^3/uL (4.0-11.0) Red Blood Count 2.69 x10^6/uL (3.50-5.40) Hemoglobin 7.2 g/dL (12.0-15.5) Hematocrit 23.1 % (36.0-47.0) Mean Corpuscular Volume 86 fL (79-100) Mean Corpuscular Hemoglobin 27 pg (25-35) Mean Corpuscular Hemoglobin Concent 31 g/dL (31-37) Red Cell Distribution Width 17.9 % (11.5-14.5) Platelet Count 417 x10^3/uL (140-400) Neutrophils (%) (Auto) 82 % (31-73) Lymphocytes (%) (Auto) 10 % (24-48) Monocytes (%) (Auto) 5 % (0-9) Eosinophils (%) (Auto) 2 % (0-3) Basophils (%) (Auto) 1 % (0-3) Neutrophils # (Auto) 11.2 x10^3uL (1.8-7.7) Lymphocytes # (Auto) 1.4 x10^3/uL (1.0-4.8) Monocytes # (Auto) 0.7 x10^3/uL (0.0-1.1) Eosinophils # (Auto) 0.3 x10^3/uL (0.0-0.7) Basophils # (Auto) 0.1 x10^3/uL (0.0-0.2) Sodium Level 130 mmol/L (136-145) Potassium Level 5.0 mmol/L (3.5-5.1) Chloride Level 99 mmol/L (98-107) Carbon Dioxide Level 19 mmol/L (21-32) Anion Gap 12 (6-14) Blood Urea Nitrogen 28 mg/dL (7-20) Creatinine 2.7 mg/dL (0.6-1.0) Estimated GFR (Cockcroft-Gault) 17.4 Glucose Level 83 mg/dL (70-99) Calcium Level 8.9 mg/dL (8.5-10.1) Phosphorus Level 3.5 mg/dL (2.6-4.7) Albumin 1.2 g/dL (3.4-5.0) Results All relevant outside records, renal labs, imaging studies, telemetry/EKG's were reviewed. ANNA ZHANG MD Jul 28, 2018 16:05
[2018-07-28] MEDS: VANCOMYCIN 500 MG in IV NORMAL SALINE 100ML 100 ML IV SCH (16:20)
[2018-07-28] MEDS: FOLIC/VIT B COMP W-C (RENAL) TABLET. PO SCH (18:30)
[2018-07-28 19:00] VITALS: BP 131/82
[2018-07-28] MEDS: MIRTAZAPINE 15 MG TABLET PO SCH (21:23)
[2018-07-28 22:39] VITALS: BP 145/75
[2018-07-29] VITALS (7 sets, daily range): BP systolic 136–168; BP diastolic 63–89
[2018-07-29] MEDS: VANCOMYCIN 125 MG/2.5 ML ORAL SOLUTION. PO SCH ×5 (01:22→18:38)
[2018-07-29] MEDS: AMINO AC 3%/ELECTROLYTE/GLYCER 1,000 ML IV SCH ×2 (01:23→20:22)
[2018-07-29] MEDS ORDERED: IV NORMAL SALINE 1000ML BAG 1,000 ML IV PRN ×2 (07:02)
[2018-07-29] MEDS ORDERED: ACETAMINOPHEN 500 MG TABLET PO PRN (07:15)
[2018-07-29] MEDS ORDERED: DIALYSIS PATIENT. MC PRN (07:15)
[2018-07-29] MEDS ORDERED: diphenhydrAMINE 50 MG/ML VIAL IV PRN ×2 (07:15)
[2018-07-29] MEDS ORDERED: ALBUMIN HUMAN 25% 200 ML IV PRN (07:15)
[2018-07-29] MEDS: IPRATRPIUM/ALBUTEROL 0.5/2.5MG 3 ML NEBU. NEB SCH ×2 (08:00→19:08)
[2018-07-29] MEDS: MEGESTROL 20 MG TABLET. PO SCH ×2 (09:00→20:24)
[2018-07-29] MEDS: LACTOBACILLUS RHAMNOSUS GG 1 CAPSULE. PO SCH ×2 (09:00→20:24)
[2018-07-29] MEDS: amLODIPine BESYLATE 10 MG TABLET PO SCH (09:00)
[2018-07-29] MEDS: NYSTATIN 100,000 UNIT/GM TOPICAL CREAM 15GM TUBE. TP SCH ×2 (09:00→20:23)
--- NOTE | 2018-07-29 10:19 | PDOC ---
Infectious Disease Note Subjective: Subjective Pt is ok no n/v diarrhea is improving slowly Not eating well ROS: ROS Negative except for above. Vital Signs: Vital Signs Vital Signs Date Time Temp Pulse Resp B/P (MAP) Pulse Ox O2 Delivery O2 Flow Rate FiO2 07/29/18 07:00 98.0 81 18 168/69 (102) 99 Room Air 98.0 Physical Exam: PHYSICAL EXAM GENERAL: Lying down, weak appearing sad affect HEENT: Pupils are equal and reactive, with normal conjunctivae. + dentures NECK: Supple. LUNGS: Clear to auscultation. HEART: S1, S2. ABDOMEN: Soft and nontender. No guarding or rebound. EXTREMITIES: No clubbing, cyanosis or gross edema. SKIN: Warm to touch, no signs of rash. NEUROLOGIC: Arouses to voice, quiet Right chest hemodialysis catheter - clean Medications: Inpatient Meds: Current Medications Medications (Trade) Dose Ordered Sig/Jaswinder Start Time Stop Time Status Last Admin Dose Admin Acetaminophen (Tylenol) 500 mg 1X PRN PRN 07/29/18 07:15 07/30/18 07:14 Acetaminophen/ Hydrocodone Bitart (Lortab 5/325) 1 tab PRN Q6HRS PRN 07/19/18 20:00 Albumin Human 200 ml @ 200 mls/hr 1X PRN PRN 07/29/18 07:15 07/29/18 13:14 Albuterol/ Ipratropium (Duoneb) 3 ml RTBID 07/15/18 08:00 07/28/18 20:06 3 ML Amino Acids/ Glycerin/ Electrolytes 1,000 ml @ 80 mls/hr [id number] 07/19/18 11:45 07/29/18 01:23 80 MLS/HR Amlodipine Besylate (Norvasc) 10 mg DAILY 07/23/18 09:00 07/27/18 09:51 10 MG Benzocaine (Hurricaine One) 3 spray 1X ONCE 07/24/18 12:00 07/24/18 12:01 DC 07/24/18 13:11 2 SPRAY Cefazolin Sodium 50 ml @ As Directed STK-MED ONCE 07/22/18 12:45 07/22/18 12:46 DC Ceftaroline Fosamil 400 mg/ Sodium Chloride 250 ml @ 250 mls/hr Q12HR 07/22/18 14:00 07/28/18 21:23 250 MLS/HR Clotrimazole (Mycelex) 10 mg 5XDAY 07/16/18 14:00 07/28/18 14:13 DC 07/28/18 05:48 10 MG Darbepoetin Avery (Aranesp) 60 mcg WEEKLYHS 07/22/18 21:00 07/22/18 21:49 60 MCG Diphenhydramine HCl (Benadryl) 25 mg 1X PRN PRN 07/29/18 07:15 07/30/18 07:14 Fentanyl Citrate (Fentanyl 2ml Vial) 50 mcg PRN Q5MIN PRN 07/24/18 07:00 07/25/18 06:59 DC Heparin Sodium (Porcine) (Heparin Sodium) 10,000 unit STK-MED ONCE 07/28/18 10:38 07/28/18 10:39 DC Heparin Sodium/ Sodium Chloride 0 ml @ As Directed STK-MED ONCE 07/28/18 10:39 07/28/18 10:40 DC Info (PHARMACY MONITORING -- do not chart) 1 each PRN DAILY PRN 07/29/18 07:15 07/29/18 07:19 DC Labetalol HCl (Normodyne Iv Push) 10 mg PRN Q2HR PRN 07/23/18 09:30 Lactobacillus Rhamnosus (Culturelle) 1 cap BID 07/16/18 21:00 07/28/18 21:23 1 CAP Lidocaine HCl (Glydo (Lidocaine) Jelly) 1 rolly 1X ONCE 07/24/18 12:00 07/24/18 12:01 DC 07/24/18 13:10 1 ROLLY Lidocaine HCl (Lidocaine 1% 20ml Vial) 20 ml 1X ONCE 07/22/18 13:30 07/22/18 13:31 DC 07/22/18 13:27 9 ML Lidocaine HCl (Viscous Lidocaine) 15 ml 1X ONCE 07/24/18 12:00 07/24/18 12:01 DC 07/24/18 13:12 15 ML Lidocaine HCl (Xylocaine 2% Topical 5gm Tube) 1 rolly 1X ONCE 07/24/18 12:00 07/24/18 12:01 DC Lidocaine HCl (Xylocaine-Mpf 1% 2ml Vial) 2 ml PRN 1X PRN 07/24/18 07:00 07/25/18 06:59 DC Lidocaine/ Epinephrine (LIDOCAINE 1%-EPI 1:100,000 Multi-Dose) 20 ml STK-MED ONCE 07/28/18 10:36 07/28/18 10:37 DC Loperamide HCl (Imodium) 2 mg 1X ONCE 07/25/18 11:15 07/25/18 11:16 DC 07/25/18 12:47 2 MG Megestrol Acetate (Megace) 40 mg BID 07/15/18 09:00 07/28/18 21:23 40 MG Midazolam HCl (Versed) 2 mg 1X ONCE 07/22/18 13:30 07/22/18 13:31 DC 07/22/18 13:28 0.5 MG Mirtazapine (Remeron) 15 mg QHS 07/14/18 22:00 07/28/18 21:23 15 MG Morphine Sulfate (Morphine Sulfate) 2 mg PRN Q2HR PRN 07/14/18 17:15 07/15/18 17:14 DC Non-Formulary Medication (Mirtazapine ) 1 tab QHS 07/15/18 21:00 UNV Nystatin (Mycostatin) 1 rolly BID 07/23/18 21:00 07/28/18 21:23 1 ROLLY Ondansetron HCl (Zofran Odt) 4 mg PRN Q6HRS PRN 07/23/18 09:30 07/26/18 16:12 4 MG Ondansetron HCl (Zofran) 4 mg PRN Q6HRS PRN 07/24/18 07:00 07/25/18 06:59 DC Phytonadione (Mephyton Oral Soln) 5 mg 1X ONCE 07/14/18 22:00 07/14/18 22:01 DC 07/14/18 22:14 5 MG Piperacillin Sod/ Tazobactam Sod 4.5 gm/Sodium Chloride 100 ml @ 200 mls/hr 1X ONCE 07/14/18 15:00 07/14/18 15:29 DC 07/14/18 15:58 200 MLS/HR Potassium Chloride (Klor-Con) 40 meq AFTRNOON 07/19/18 13:00 07/23/18 15:10 40 MEQ Prochlorperazine Edisylate (Compazine) 5 mg PACU PRN PRN 07/24/18 07:00 07/25/18 06:59 DC Propofol (Diprivan) 200 mg STK-MED ONCE 07/24/18 13:00 07/25/18 08:16 DC Ringer's Solution 1,000 ml @ 30 mls/hr Q24H 07/24/18 07:00 07/24/18 18:59 DC Ropinirole HCl (Requip) 1 mg PRN QEVNG PRN 07/16/18 20:00 07/26/18 17:46 1 MG Sertraline HCl (Zoloft) 100 mg DAILY 07/15/18 09:00 07/27/18 09:50 100 MG Simethicone (Gas-X) 80 mg PRN AFTMEALHC PRN 07/26/18 15:45 07/26/18 16:12 80 MG Sodium Chloride 1,000 ml @ 400 mls/hr Q2H30M PRN 07/29/18 07:02 07/29/18 19:01 Sodium Chloride (Normal Saline Flush) 10 ml 1X PRN PRN 07/28/18 13:00 07/29/18 12:59 Tramadol HCl (Ultram) 50 mg PRN Q6HRS PRN 07/23/18 09:30 Vancomycin HCl (Vanco Per Pharmacy) 1 each PRN DAILY PRN 07/14/18 14:45 07/28/18 14:04 1 EACH Vancomycin HCl (Vancomycin Random Level) 1 each 1X ONCE 07/27/18 06:00 07/27/18 06:02 DC 07/27/18 06:00 1 EACH Vancomycin HCl (Vancomycin Oral Solution) 125 mg Q6HRS 07/17/18 00:00 07/29/18 01:22 125 MG Vancomycin HCl 1.25 gm/Sodium Chloride 250 ml @ 166.667 mls/hr 1X ONCE 07/14/18 15:00 07/14/18 16:29 DC 07/14/18 18:10 166.667 MLS/HR Vancomycin HCl 500 mg/Sodium Chloride 100 ml @ 100 mls/hr QMWF 07/28/18 16:00 07/28/18 16:20 100 MLS/HR Vancomycin HCl 750 mg/Sodium Chloride 250 ml @ 250 mls/hr 1X ONCE 07/21/18 16:00 07/21/18 16:59 Cancel Vitamin B Complex (Folbic Tablet) 1 tab DAILY 07/15/18 09:00 07/27/18 09:50 1 TAB Vitamin B Complex/ Vitamin C (Dinorah-Ralph) 1 tab QPM 07/15/18 18:00 07/28/18 18:30 1 TAB Labs: Micro BC neg from 07/24 Objective: Assessment: MRSA bacteremia POA 07/14 (R tetra) - repeat BC 07/18 and 07/20 positive, - BC neg from 07/24 NGTD - 2D echo neg vegetation; on 07/24 RAMON showed HD catheter w/ large mobile vegetation or thrombus (measuring at least 2.5 x 1.1 cm) extending into the RA. -s/p tunneled HDC line removal on 07/18. s/p replacement 07/23 , C. difficile from 07/16 positive Thrush - better Anemia - S/p PRBCs Leukocytosis CKD on HD Severe Protein malnutrition Failure to thrive. Plan: Plan of Care Cont po/IV Vanc and ceftaroline, latter 2 drugs renal dosing Probiotics f/u cultures Contact isolation GIANFRANCO GOLD MD Jul 29, 2018 10:19
--- NOTE | 2018-07-29 10:38 | PDOC ---
SUBJECTIVE ROS seen on HD, no concerns voiced OBJECTIVE Vital Signs Vital Signs Date Time Temp Pulse Resp B/P (MAP) Pulse Ox O2 Delivery O2 Flow Rate FiO2 07/29/18 07:00 98.0 81 18 168/69 (102) 99 Room Air 98.0 I & 0 Intake and Output 07/29/18 07:00 Intake Total 1890 ml Balance 1890 ml Intake Oral 390 ml IV Total 1500 ml PHYSICAL EXAM Physical Exam GENERAL: nad HEENT: Pupils are equal and reactive, with normal conjunctivae. + dentures NECK: Supple. LUNGS: Clear to auscultation. HEART: S1, S2. ABDOMEN: Soft and nontender. No guarding or rebound. EXTREMITIES: No clubbing, cyanosis or gross edema. SKIN: Warm to touch, no signs of rash. 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 s/p replacement 07/23 C. difficile from 07/16 positive Anemia - [facility] Severe Protein malnutrition Failure to thriv COMMENT/RELEVANT DATA Meds Current Medications Medications (Trade) Dose Ordered Sig/Jaswinder Start Time Stop Time Status Last Admin Dose Admin Acetaminophen (Tylenol) 500 mg 1X PRN PRN 07/29/18 07:15 07/30/18 07:14 Acetaminophen/ Hydrocodone Bitart (Lortab 5/325) 1 tab PRN Q6HRS PRN 07/19/18 20:00 Albumin Human 200 ml @ 200 mls/hr 1X PRN PRN 07/29/18 07:15 07/29/18 13:14 Albuterol/ Ipratropium (Duoneb) 3 ml RTBID 07/15/18 08:00 07/28/18 20:06 3 ML Amino Acids/ Glycerin/ Electrolytes 1,000 ml @ 80 mls/hr [id number] 07/19/18 11:45 07/29/18 01:23 80 MLS/HR Amlodipine Besylate (Norvasc) 10 mg DAILY 07/23/18 09:00 07/27/18 09:51 10 MG Benzocaine (Hurricaine One) 3 spray 1X ONCE 07/24/18 12:00 07/24/18 12:01 DC 07/24/18 13:11 2 SPRAY Cefazolin Sodium 50 ml @ As Directed STK-MED ONCE 07/22/18 12:45 07/22/18 12:46 DC Ceftaroline Fosamil 400 mg/ Sodium Chloride 250 ml @ 250 mls/hr Q12HR 07/22/18 14:00 07/28/18 21:23 250 MLS/HR Clotrimazole (Mycelex) 10 mg 5XDAY 07/16/18 14:00 07/28/18 14:13 DC 07/28/18 05:48 10 MG Darbepoetin Avery (Aranesp) 60 mcg WEEKLYHS 07/22/18 21:00 07/22/18 21:49 60 MCG Diphenhydramine HCl (Benadryl) 25 mg 1X PRN PRN 07/29/18 07:15 07/30/18 07:14 Fentanyl Citrate (Fentanyl 2ml Vial) 50 mcg PRN Q5MIN PRN 07/24/18 07:00 07/25/18 06:59 DC Heparin Sodium (Porcine) (Heparin Sodium) 10,000 unit STK-MED ONCE 07/28/18 10:38 07/28/18 10:39 DC Heparin Sodium/ Sodium Chloride 0 ml @ As Directed STK-MED ONCE 07/28/18 10:39 07/28/18 10:40 DC Info (PHARMACY MONITORING -- do not chart) 1 each PRN DAILY PRN 07/29/18 07:15 07/29/18 07:19 DC Labetalol HCl (Normodyne Iv Push) 10 mg PRN Q2HR PRN 07/23/18 09:30 Lactobacillus Rhamnosus (Culturelle) 1 cap BID 07/16/18 21:00 07/28/18 21:23 1 CAP Lidocaine HCl (Glydo (Lidocaine) Jelly) 1 rolly 1X ONCE 07/24/18 12:00 07/24/18 12:01 DC 07/24/18 13:10 1 ROLYL Lidocaine HCl (Lidocaine 1% 20ml Vial) 20 ml 1X ONCE 07/22/18 13:30 07/22/18 13:31 DC 07/22/18 13:27 9 ML Lidocaine HCl (Viscous Lidocaine) 15 ml 1X ONCE 07/24/18 12:00 07/24/18 12:01 DC 07/24/18 13:12 15 ML Lidocaine HCl (Xylocaine 2% Topical 5gm Tube) 1 rolly 1X ONCE 07/24/18 12:00 07/24/18 12:01 DC Lidocaine HCl (Xylocaine-Mpf 1% 2ml Vial) 2 ml PRN 1X PRN 07/24/18 07:00 07/25/18 06:59 DC Lidocaine/ Epinephrine (LIDOCAINE 1%-EPI 1:100,000 Multi-Dose) 20 ml STK-MED ONCE 07/28/18 10:36 07/28/18 10:37 DC Loperamide HCl (Imodium) 2 mg 1X ONCE 07/25/18 11:15 07/25/18 11:16 DC 07/25/18 12:47 2 MG Megestrol Acetate (Megace) 40 mg BID 07/15/18 09:00 07/28/18 21:23 40 MG Midazolam HCl (Versed) 2 mg 1X ONCE 07/22/18 13:30 07/22/18 13:31 DC 07/22/18 13:28 0.5 MG Mirtazapine (Remeron) 15 mg QHS 07/14/18 22:00 07/28/18 21:23 15 MG Morphine Sulfate (Morphine Sulfate) 2 mg PRN Q2HR PRN 07/14/18 17:15 07/15/18 17:14 DC Non-Formulary Medication (Mirtazapine ) 1 tab QHS 07/15/18 21:00 UNV Nystatin (Mycostatin) 1 rolly BID 07/23/18 21:00 07/28/18 21:23 1 ROLLY Ondansetron HCl (Zofran Odt) 4 mg PRN Q6HRS PRN 07/23/18 09:30 07/26/18 16:12 4 MG Ondansetron HCl (Zofran) 4 mg PRN Q6HRS PRN 07/24/18 07:00 07/25/18 06:59 DC Phytonadione (Mephyton Oral Soln) 5 mg 1X ONCE 07/14/18 22:00 07/14/18 22:01 DC 07/14/18 22:14 5 MG Piperacillin Sod/ Tazobactam Sod 4.5 gm/Sodium Chloride 100 ml @ 200 mls/hr 1X ONCE 07/14/18 15:00 07/14/18 15:29 DC 07/14/18 15:58 200 MLS/HR Potassium Chloride (Klor-Con) 40 meq AFTRNOON 07/19/18 13:00 07/23/18 15:10 40 MEQ Prochlorperazine Edisylate (Compazine) 5 mg PACU PRN PRN 07/24/18 07:00 07/25/18 06:59 DC Propofol (Diprivan) 200 mg STK-MED ONCE 07/24/18 13:00 07/25/18 08:16 DC Ringer's Solution 1,000 ml @ 30 mls/hr Q24H 07/24/18 07:00 07/24/18 18:59 DC Ropinirole HCl (Requip) 1 mg PRN QEVNG PRN 07/16/18 20:00 07/26/18 17:46 1 MG Sertraline HCl (Zoloft) 100 mg DAILY 07/15/18 09:00 07/27/18 09:50 100 MG Simethicone (Gas-X) 80 mg PRN AFTMEALHC PRN 07/26/18 15:45 07/26/18 16:12 80 MG Sodium Chloride 1,000 ml @ 400 mls/hr Q2H30M PRN 07/29/18 07:02 07/29/18 19:01 Sodium Chloride (Normal Saline Flush) 10 ml 1X PRN PRN 07/28/18 13:00 07/29/18 12:59 Tramadol HCl (Ultram) 50 mg PRN Q6HRS PRN 07/23/18 09:30 Vancomycin HCl (Vanco Per Pharmacy) 1 each PRN DAILY PRN 07/14/18 14:45 07/28/18 14:04 1 EACH Vancomycin HCl (Vancomycin Random Level) 1 each 1X ONCE 07/27/18 06:00 07/27/18 06:02 DC 07/27/18 06:00 1 EACH Vancomycin HCl (Vancomycin Oral Solution) 125 mg Q6HRS 07/17/18 00:00 07/29/18 01:22 125 MG Vancomycin HCl 1.25 gm/Sodium Chloride 250 ml @ 166.667 mls/hr 1X ONCE 07/14/18 15:00 07/14/18 16:29 DC 07/14/18 18:10 166.667 MLS/HR Vancomycin HCl 500 mg/Sodium Chloride 100 ml @ 100 mls/hr QMWF 07/28/18 16:00 07/28/18 16:20 100 MLS/HR Vancomycin HCl 750 mg/Sodium Chloride 250 ml @ 250 mls/hr 1X ONCE 07/21/18 16:00 07/21/18 16:59 Cancel Vitamin B Complex (Folbic Tablet) 1 tab DAILY 07/15/18 09:00 07/27/18 09:50 1 TAB Vitamin B Complex/ Vitamin C (Dinorah-Ralph) 1 tab QPM 07/15/18 18:00 07/28/18 18:30 1 TAB Results All relevant outside records, renal labs, imaging studies, telemetry/EKG's were reviewed. ANNA ZHANG MD Jul 29, 2018 10:38
[2018-07-29] MEDS: CEFTAROLINE FOSAMIL IV SCH ×2 (11:19→20:23)
[2018-07-29] MEDS: SERTRALINE 50 MG TABLET. PO SCH (11:19)
[2018-07-29] MEDS: NORMAL SALINE IV SCH ×2 (11:19→20:23)
[2018-07-29] MEDS: VITAMIN B12,B9,B6 COMPLEX 1 TABLET. PO SCH (11:20)
[2018-07-29] MEDS: rOPINIRole 1 MG TABLET. PO SCH ×2 (11:20→20:24)
--- NOTE | 2018-07-29 12:07 | NUR ---
Bedside Swallow Evaluation completed. Please refer to full report for additional details. Impressions: Functional oropharyngeal swallow w/o s/s aspiration. Poor fitting dentures contribute to mild oropharyngeal delay. Recommendations: Regular diet w/ thin liquids. General precautions, sit upright for PO/meds. Encourage denture cream or removing dentures for taking meds in crushed applesauce as RN reports coughing when taking pills at times. ST f/u 1-2 visits for dysphagia and assessment of PO safety.
[2018-07-29] MEDS: POTASSIUM CHLORIDE 20 MEQ TABLET.ER. PO SCH (13:00)
--- NOTE | 2018-07-29 14:57 | PDOC ---
PROGRESS NOTES Chief Complaint Chief Complaint impression Staph bacteremia with severe risk of complications 2D echo neg vegetation; on 07/24 RAMON showed HD catheter w/ large mobile vegetation or thrombus (measuring at least 2.5 x 1.1 cm) extending into the RA. -s/p tunneled HDC line removal on 07/18. s/p replacement 07/23 C. difficile from 07/16 positive ESRD on dialysis Anemia of ESRD Leukocytosis/sepsis C. difficile DNR Hyponatremia Hyperkalemia Vascular dementia HTN Anxiety Depression noncompliance with PT/OT 07/25 PLAN: Cont vanc iv and oral HD per renal supportive care encourage as much activity as tolerated follow cultures DNR pt/ot NEW PERMCATH placed on 07/28 History of Present Illness History of Present Illness dialysis catheter inserted Blood cultures are positive - staph bacteremia many bottles ID FOLLOWING Patient on vancomycin No fever, WBC still elevated Hemoglobin stable status post transfusion. On contact Isol because of bacteremia and C. difficile positivity Palliative note reviewed, patient wishes to continue dialysis 07/25 Earlier entry: 72 yo f w/ PMHx CVA with vascular dementia, HTN, anxiety, depression, end-stage renal disease on dialysis Saturday, Saturday, (new dx 2018), last dialyzed on Saturday who p/w fever, decreased appetite, fever, decreased energy/ weakness, symptoms began 3 days ago. Found with Hb of 5.6 in ED, transfused PRBC to 7.5. She was noted with loose stools as well. She has history dementia but she is alert to person only, but is able to carry on a conversation and give some health history. She does not refuse dialysis every day. She was seen here this past January 2018 and May 2018 and sent home with home health ([facility]). She has a DPOA, Ivy the nephew has been texting who has been informed of hospital admission. 07/15: Seen on dialysis today. She has some chills with this. Notably, lab called about 3/4 bottles positive on blood culture for GPC in clusters. 07/16: Feeling terrible today. Has diarrhea x2 POSITIVE FOR C. DIFFICILE. She has bilateral LQ pain. Started on oral vancomycin and continued on IV Vancomycin 07/17: Still with poor PO intake 07/18: HD catheter pulled. Culture looks like MRSA 07/19: Still not eating, started PPN. Still with repeat blood cultures 1/4 bottles positive 07/21 DECISION FOR PALLIATIVE CARE Needed GRAM POSITIVE COCCI IN CLUSTERS, SUGGESTIVE OF STAPH, IN 4 OF 5 BOTTLES, 3 SETS DRAWN ON 07/20/18. ALL 3 SETS ARE POSITIVE. Still with some loose stools. Positive / repeat blood cultures after line was pulled. Denies SOB and CP. She does have some catheter site pain where it was pulled. 07/25 NONCOMPLIANT WITH PT/OT, BLOOD CUL PENDING, REPEAT, high risk of complications due to noncompliance per my personal review of chart 07/26 PERMCATH NONFUNCTIONAL. NEW PERMCATH SATURDAY refusing to eat lunch today, bp uncontrolled 07/27 still not eating well, noncompliant 07/28 NOT IMPROVED FAR COMPLIANCE, POOR APPETITE 07/28 Problem List (body system elements) * Impaired fnctnl mobility * Strength * Balance * Knowledge-safe techniques NEEDS SNF 07/29 Patient with no acute events reported overnight, patient with improving appetite, will see how much she is able to eat today and hopefully wean off procalamine. No fever chills diaphoresis reported. Vitals Vitals Vital Signs Date Time Temp Pulse Resp B/P (MAP) Pulse Ox O2 Delivery O2 Flow Rate FiO2 07/29/18 11:00 98.4 86 18 155/68 (97) 99 Room Air 98.4 Physical Exam Physical Exam GENERAL: Lying down, weak appearing sad affect HEENT: Pupils are equal and reactive, with normal conjunctivae. + dentures NECK: Supple. LUNGS: Clear to auscultation. HEART: S1, S2. ABDOMEN: Soft and nontender. No guarding or rebound. EXTREMITIES: No clubbing, cyanosis or gross edema. SKIN: Warm to touch, no signs of rash. NEUROLOGIC: Arouses to voice, quiet Right chest hemodialysis catheter - clean General: Alert, Oriented X3, No acute distress, Other (poorly oriented) Heart: Regular rate, Normal S1 Lungs: Clear Abdomen: Normal bowel sounds, Soft, No tenderness Extremities: No clubbing, No cyanosis, Normal pulses Skin: No rashes, No significant lesion Assessment and Plan Assessmemt and Plan Problems Medical Problems: (1) End stage renal disease Status: Acute (2) Generalized weakness Status: Acute Comment Review of Relevant I have reviewed the following items linda (where applicable) has been applied. Labs Laboratory Tests Test 07/28/18 07:20 White Blood Count 13.8 x10^3/uL (4.0-11.0) Red Blood Count 2.69 x10^6/uL (3.50-5.40) Hemoglobin 7.2 g/dL (12.0-15.5) Hematocrit 23.1 % (36.0-47.0) Mean Corpuscular Volume 86 fL (79-100) Mean Corpuscular Hemoglobin 27 pg (25-35) Mean Corpuscular Hemoglobin Concent 31 g/dL (31-37) Red Cell Distribution Width 17.9 % (11.5-14.5) Platelet Count 417 x10^3/uL (140-400) Neutrophils (%) (Auto) 82 % (31-73) Lymphocytes (%) (Auto) 10 % (24-48) Monocytes (%) (Auto) 5 % (0-9) Eosinophils (%) (Auto) 2 % (0-3) Basophils (%) (Auto) 1 % (0-3) Neutrophils # (Auto) 11.2 x10^3uL (1.8-7.7) Lymphocytes # (Auto) 1.4 x10^3/uL (1.0-4.8) Monocytes # (Auto) 0.7 x10^3/uL (0.0-1.1) Eosinophils # (Auto) 0.3 x10^3/uL (0.0-0.7) Basophils # (Auto) 0.1 x10^3/uL (0.0-0.2) Sodium Level 130 mmol/L (136-145) Potassium Level 5.0 mmol/L (3.5-5.1) Chloride Level 99 mmol/L (98-107) Carbon Dioxide Level 19 mmol/L (21-32) Anion Gap 12 (6-14) Blood Urea Nitrogen 28 mg/dL (7-20) Creatinine 2.7 mg/dL (0.6-1.0) Estimated GFR (Cockcroft-Gault) 17.4 Glucose Level 83 mg/dL (70-99) Calcium Level 8.9 mg/dL (8.5-10.1) Phosphorus Level 3.5 mg/dL (2.6-4.7) Albumin 1.2 g/dL (3.4-5.0) Microbiology 07/24/18 Blood Culture - Preliminary, Resulted NO GROWTH AFTER 4 DAYS 07/14/18 Urine Culture - Final, Complete 07/14/18 Urine Culture Result 1 (MARYANN) - Final, Complete Medications Current Medications Piperacillin Sod/ Tazobactam Sod 4.5 gm/Sodium Chloride 100 ml @ 200 mls/hr 1X ONCE IV Last administered on 07/14/18 15:58; Start 07/14/18 at 15:00; Stop 07/14/18 at 15:29; Status DC Vancomycin HCl (Vanco Per Pharmacy) 1 each PRN DAILY PRN MC SEE COMMENTS Last administered on 07/28/18 14:04; Start 07/14/18 at 14:45 Vancomycin HCl 1.25 gm/Sodium Chloride 250 ml @ 166.667 mls/hr 1X ONCE IV Last administered on 07/14/18at 18:10; Start 07/14/18 at 15:00; Stop 07/14/18 at 16:29; Status DC Ondansetron HCl (Zofran) 4 mg PRN Q8HRS PRN IV NAUSEA/VOMITING; Start 07/14/18 at 17:15; Stop 07/15/18 at 17:14; Status DC Morphine Sulfate (Morphine Sulfate) 2 mg PRN Q2HR PRN IV PAIN; Start 07/14/18 at 17:15; Stop 07/15/18 at 17:14; Status DC Acetaminophen (Tylenol) 650 mg PRN Q4HRS PRN PO FEVER; Start 07/14/18 at 17:15 ; Stop 07/15/18 at 17:14; Status DC Vancomycin HCl (Vancomycin Random Level) 1 each 1X ONCE MC ; Start 07/15/18 at 06:00; Stop 07/15/18 at 06:01; Status DC Vitamin B Complex/ Vitamin C (Dinorah-Ralph) 1 tab QPM PO Last administered on 18:30; Start 07/15/18 at 18:00 Megestrol Acetate (Megace) 40 mg BID PO Last administered on 07/28/18 21:23; Start 07/15/18 at 09:00 Mirtazapine (Remeron) 15 mg QHS PO Last administered on 07/28/18 21:23; Start 07/14/18 at 22:00 Non-Formulary Medication (Mirtazapine ) 1 tab QHS PO ; Start 07/15/18 at 21:00; Status UNV Ropinirole HCl (Requip) 3 mg BID PO Last administered on 07/16/18at 18:21; Start 07/14/18 at 22:00; Stop 07/16/18 at 19:54; Status DC Sertraline HCl (Zoloft) 100 mg DAILY PO Last administered on 07/29/18 11:19; Start 07/15/18 at 09:00 Phytonadione (Mephyton Oral Soln) 5 mg 1X ONCE PO Last administered on 22:14; Start 07/14/18 at 22:00; Stop 07/14/18 at 22:01; Status DC Vitamin B Complex (Folbic Tablet) 1 tab DAILY PO Last administered on 07/29/18 11:20; Start 07/15/18 at 09:00 Albuterol/ Ipratropium (Duoneb) 3 ml RTBID NEB Last administered on 07/28/18 20 :06; Start 07/15/18 at 08:00 Sodium Chloride 1,000 ml @ 1,000 mls/hr Q1H PRN IV hypotension; Start 07/15/18 at 10:48; Stop 07/15/18 at 16:47; Status DC Albumin Human 200 ml @ 200 mls/hr 1X PRN PRN IV Hypotension; Start 07/15/18 at 11:00; Stop 07/15/18 at 16:59; Status DC Sodium Chloride 1,000 ml @ 400 mls/hr Q2H30M PRN IV PATENCY; Start 07/15/18 at 10:48; Stop 07/15/18 at 22:47; Status DC Info (PHARMACY MONITORING -- do not chart) 1 each PRN DAILY PRN MC SEE COMMENTS ; Start 07/15/18 at 11:00; Status UNV Info (PHARMACY MONITORING -- do not chart) 1 each PRN DAILY PRN MC SEE COMMENTS ; Start 07/15/18 at 11:00; Stop 07/22/18 at 14:31; Status DC Vancomycin HCl 500 mg/Sodium Chloride 100 ml @ 100 mls/hr QTUTHSA IV Last administered on 07/17/18at 16:44; Start 07/17/18 at 16:00; Stop 07/18/18 at 15:41 ; Status DC Lactobacillus Rhamnosus (Culturelle) 1 cap BID PO Last administered on 21:23; Start 07/16/18 at 21:00 Clotrimazole (Mycelex) 10 mg 5XDAY MM Last administered on 07/28/18 05:48; Start 07/16/18 at 14:00; Stop 07/28/18 at 14:13; Status DC Ropinirole HCl (Requip) 3 mg DAILY PO Last administered on 07/29/18 11:20; Start 07/17/18 at 09:00 Ropinirole HCl (Requip) 2 mg QHS PO Last administered on 07/28/18 21:23; Start 07/16/18 at 21:00 Ropinirole HCl (Requip) 1 mg PRN QEVNG PRN PO RLS Last administered on 17:46; Start 07/16/18 at 20:00 Vancomycin HCl (Vancomycin Oral Solution) 125 mg Q6HRS PO Last administered on 07/29/18 11:43; Start 07/17/18 at 00:00 Sodium Chloride 1,000 ml @ 1,000 mls/hr Q1H PRN IV hypotension; Start 07/17/18 at 14:55; Stop 07/17/18 at 20:54; Status DC Sodium Chloride 1,000 ml @ 400 mls/hr Q2H30M PRN IV PATENCY; Start 07/17/18 at 14:55; Stop 07/18/18 at 02:54; Status DC Info (PHARMACY MONITORING -- do not chart) 1 each PRN DAILY PRN MC SEE COMMENTS ; Start 07/17/18 at 15:00; Stop 07/17/18 at 15:00; Status DC Info (PHARMACY MONITORING -- do not chart) 1 each PRN DAILY PRN MC SEE COMMENTS ; Start 07/17/18 at 15:00; Stop 07/17/18 at 15:00; Status DC Sodium Chloride 1,000 ml @ 1,000 mls/hr Q1H PRN IV hypotension; Start 07/18/18 at 11:30; Stop 07/18/18 at 17:29; Status DC Sodium Chloride 1,000 ml @ 400 mls/hr Q2H30M PRN IV PATENCY; Start 07/18/18 at 11:30; Stop 07/18/18 at 23:29; Status DC Info (PHARMACY MONITORING -- do not chart) 1 each PRN DAILY PRN MC SEE COMMENTS ; Start 07/18/18 at 12:30; Status UNV Info (PHARMACY MONITORING -- do not chart) 1 each PRN DAILY PRN MC SEE COMMENTS ; Start 07/18/18 at 12:30; Status UNV Vancomycin HCl 500 mg/Sodium Chloride 100 ml @ 100 mls/hr 1X ONCE IV Last administered on 07/18/18at 16:40; Start 07/18/18 at 16:00; Stop 07/18/18 at 16:59 ; Status DC Amino Acids/ Glycerin/ Electrolytes 1,000 ml @ 80 mls/hr [id number] IV Last administered on 07/29/18at 01:23; Start 07/19/18 at 11:45 Potassium Chloride (Klor-Con) 40 meq AFTRNOON PO Last administered on at 15:10; Start 07/19/18 at 13:00 Vancomycin HCl 500 mg/Sodium Chloride 100 ml @ 100 mls/hr 1X ONCE IV ; Start 07/21/18 at 16:00; Stop 07/21/18 at 16:59; Status Cancel Acetaminophen/ Hydrocodone Bitart (Lortab 5/325) 1 tab PRN Q6HRS PRN PO SEVERE PAIN; Start 07/19/18 at 20:00 Sodium Chloride 1,000 ml @ 1,000 mls/hr Q1H PRN IV hypotension; Start 07/21/18 at 12:29; Stop 07/21/18 at 18:28; Status DC Sodium Chloride (Normal Saline Flush) 10 ml 1X PRN PRN IV AP catheter pack; Start 07/21/18 at 12:30; Stop 07/22/18 at 12:29; Status DC Sodium Chloride (Normal Saline Flush) 10 ml 1X PRN PRN IV REVENUE MANAGER catheter pack; Start 07/21/18 at 12:30; Stop 07/22/18 at 12:29; Status DC Sodium Chloride 1,000 ml @ 400 mls/hr Q2H30M PRN IV PATENCY; Start 07/21/18 at 12:29; Stop 07/22/18 at 00:28; Status DC Info (PHARMACY MONITORING -- do not chart) 1 each PRN DAILY PRN MC SEE COMMENTS ; Start 07/21/18 at 12:30; Status UNV Info (PHARMACY MONITORING -- do not chart) 1 each PRN DAILY PRN MC SEE COMMENTS ; Start 07/21/18 at 12:30; Status Cancel Vancomycin HCl 750 mg/Sodium Chloride 250 ml @ 250 mls/hr 1X ONCE IV ; Start 07/21/18 at 16:00; Stop 07/21/18 at 16:59; Status Cancel Vancomycin HCl 500 mg/Sodium Chloride 100 ml @ 100 mls/hr 1X ONCE IV Last administered on 07/21/18at 21:35; Start 07/21/18 at 18:30; Stop 07/21/18 at 19:29 ; Status DC Lidocaine/ Epinephrine (LIDOCAINE 1%-EPI 1:100,000 Multi-Dose) 20 ml STK-MED ONCE .ROUTE ; Start 07/22/18 at 11:46; Stop 07/22/18 at 11:47; Status DC Cefazolin Sodium 50 ml @ As Directed STK-MED ONCE IV ; Start 07/22/18 at 12:45; Stop 07/22/18 at 12:46; Status DC Midazolam HCl (Versed) 2 mg STK-MED ONCE .ROUTE ; Start 07/22/18 at 12:45; Stop 07/22/18 at 12:46; Status DC Fentanyl Citrate (Fentanyl 2ml Vial) 100 mcg STK-MED ONCE .ROUTE ; Start at 12:45; Stop 07/22/18 at 12:46; Status DC Vancomycin HCl 500 mg/Sodium Chloride 100 ml @ 100 mls/hr QTUTHSA IV Last administered on 07/24/18at 18:27; Start 07/22/18 at 16:00; Stop 07/26/18 at 14:45 ; Status DC Midazolam HCl (Versed) 2 mg 1X ONCE IV Last administered on 07/22/18at 13:28; Start 07/22/18 at 13:30; Stop 07/22/18 at 13:31; Status DC Fentanyl Citrate (Fentanyl 2ml Vial) 100 mcg 1X ONCE IV Last administered on at 13:27; Start 07/22/18 at 13:30; Stop 07/22/18 at 13:31; Status DC Lidocaine HCl (Lidocaine 1% 20ml Vial) 20 ml 1X ONCE INJ Last administered on 07/22/18at 13:27; Start 07/22/18 at 13:30; Stop 07/22/18 at 13:31; Status DC Ceftaroline Fosamil 400 mg/ Sodium Chloride 250 ml @ 250 mls/hr Q12HR IV Last administered on 07/29/18at 11:19; Start 07/22/18 at 14:00 Darbepoetin Avery (Aranesp) 60 mcg [id number] SQ Last administered on 07/22/18at 21 :49; Start 07/22/18 at 21:00 Sodium Chloride 1,000 ml @ 1,000 mls/hr Q1H PRN IV hypotension; Start 07/22/18 at 15:20; Stop 07/22/18 at 21:19; Status DC Albumin Human 200 ml @ 200 mls/hr 1X PRN PRN IV Hypotension; Start 07/22/18 at 15:30; Stop 07/22/18 at 21:29; Status DC Acetaminophen (Tylenol) 500 mg 1X PRN PRN PO MILD PAIN / TEMP; Start 07/22/18 at 15:30; Stop 07/23/18 at 15:29; Status DC Diphenhydramine HCl (Benadryl) 25 mg 1X PRN PRN IV ITCHING; Start 07/22/18 at 15:30; Stop 07/23/18 at 15:29; Status DC Diphenhydramine HCl (Benadryl) 25 mg 1X PRN PRN IV ITCHING; Start 07/22/18 at 15:30; Stop 07/23/18 at 15:29; Status DC Sodium Chloride (Normal Saline Flush) 10 ml 1X PRN PRN IV AP catheter pack; Start 07/22/18 at 15:30; Stop 07/23/18 at 15:29; Status DC Sodium Chloride (Normal Saline Flush) 10 ml 1X PRN PRN IV REVENUE MANAGER catheter pack; Start 07/22/18 at 15:30; Stop 07/23/18 at 15:29; Status DC Sodium Chloride 1,000 ml @ 400 mls/hr Q2H30M PRN IV PATENCY; Start 07/22/18 at 15:20; Stop 07/23/18 at 03:19; Status DC Info (PHARMACY MONITORING -- do not chart) 1 each PRN DAILY PRN MC SEE COMMENTS ; Start 07/22/18 at 15:30; Stop 07/22/18 at 15:30; Status DC Sodium Chloride 1,000 ml @ 1,000 mls/hr Q1H PRN IV hypotension; Start 07/23/18 at 07:00; Stop 07/23/18 at 12:59; Status DC Sodium Chloride 1,000 ml @ 400 mls/hr Q2H30M PRN IV PATENCY; Start 07/23/18 at 07:00; Stop 07/23/18 at 18:59; Status DC Info (PHARMACY MONITORING -- do not chart) 1 each PRN DAILY PRN MC SEE COMMENTS ; Start 07/23/18 at 09:00; Status UNV Info (PHARMACY MONITORING -- do not chart) 1 each PRN DAILY PRN MC SEE COMMENTS ; Start 07/23/18 at 09:00 Labetalol HCl (Normodyne Iv Push) 10 mg PRN Q2HR PRN IVP HYPERTENSION, SEE COMMENTS; Start 07/23/18 at 09:30 Acetaminophen (Tylenol) 500 mg PRN Q6HRS PRN PO MILD PAIN / TEMP; Start at 09:30 Ondansetron HCl (Zofran) 4 mg PRN Q6HRS PRN IV NAUSEA/VOMITING Last administered on 07/26/18at 16:17; Start 07/23/18 at 09:30 Ondansetron HCl (Zofran Odt) 4 mg PRN Q6HRS PRN PO NAUSEA/VOMITING Last administered on 07/26/18at 16:12; Start 07/23/18 at 09:30 Tramadol HCl (Ultram) 50 mg PRN Q6HRS PRN PO MODERATE PAIN; Start 07/23/18 at 09:30 Amlodipine Besylate (Norvasc) 10 mg DAILY PO Last administered on 07/27/18at 09: 51; Start 07/23/18 at 09:00 Ondansetron HCl (Zofran) 4 mg PRN Q6HRS PRN IV NAUSEA/VOMITING; Start 07/24/18 at 07:00; Stop 07/25/18 at 06:59; Status DC Fentanyl Citrate (Fentanyl 2ml Vial) 25 mcg PRN Q5MIN PRN IV MILD PAIN; Start 07/24/18 at 07:00; Stop 07/25/18 at 06:59; Status DC Fentanyl Citrate (Fentanyl 2ml Vial) 50 mcg PRN Q5MIN PRN IV MODERATE TO SEVERE PAIN; Start 07/24/18 at 07:00; Stop 07/25/18 at 06:59; Status DC Ringer's Solution 1,000 ml @ 30 mls/hr Q24H IV ; Start 07/24/18 at 07:00; Stop 07/24/18 at 18:59; Status DC Lidocaine HCl (Xylocaine-Mpf 1% 2ml Vial) 2 ml PRN 1X PRN ID PRIOR TO IV START ; Start 07/24/18 at 07:00; Stop 07/25/18 at 06:59; Status DC Prochlorperazine Edisylate (Compazine) 5 mg PACU PRN PRN IV NAUSEA, MRX1; Start 07/24/18 at 07:00; Stop 07/25/18 at 06:59; Status DC Vancomycin HCl 500 mg/Sodium Chloride 100 ml @ 100 mls/hr ONCE ONCE IV Last administered on 07/23/18at 17:23; Start 07/23/18 at 16:00; Stop 07/23/18 at 16:59 ; Status DC Nystatin (Mycostatin) 1 rolly BID TP Last administered on 07/28/18at 21:23; Start 07/23/18 at 21:00 Benzocaine (Hurricaine One) 1 spray STK-MED ONCE .ROUTE ; Start 07/24/18 at 11: 49; Stop 07/24/18 at 11:50; Status Cancel Lidocaine HCl (Viscous Lidocaine) 15 ml STK-MED ONCE .ROUTE ; Start 07/24/18 at 11:49; Stop 07/24/18 at 11:50; Status DC Lidocaine HCl (Xylocaine 2% Topical 5gm Tube) 1 rolly 1X ONCE TP ; Start at 12:00; Stop 07/24/18 at 12:01; Status DC Lidocaine HCl (Viscous Lidocaine) 15 ml 1X ONCE SWSW Last administered on 07/24at 13:12; Start 07/24/18 at 12:00; Stop 07/24/18 at 12:01; Status DC Benzocaine (Hurricaine One) 3 spray 1X ONCE MM Last administered on 07/24/18at 13:11; Start 07/24/18 at 12:00; Stop 07/24/18 at 12:01; Status DC Lidocaine HCl (Glydo (Lidocaine) Jelly) 1 rolly 1X ONCE MM Last administered on 07/24/18at 13:10; Start 07/24/18 at 12:00; Stop 07/24/18 at 12:01; Status DC Sodium Chloride 1,000 ml @ 1,000 mls/hr Q1H PRN IV hypotension; Start 07/24/18 at 13:36; Stop 07/24/18 at 19:35; Status DC Albumin Human 200 ml @ 200 mls/hr 1X PRN PRN IV Hypotension; Start 07/24/18 at 13:45; Stop 07/24/18 at 19:44; Status DC Acetaminophen (Tylenol) 500 mg 1X PRN PRN PO MILD PAIN / TEMP; Start 07/24/18 at 13:45; Stop 07/25/18 at 13:44; Status DC Diphenhydramine HCl (Benadryl) 25 mg 1X PRN PRN IV ITCHING; Start 07/24/18 at 13:45; Stop 07/25/18 at 13:44; Status DC Diphenhydramine HCl (Benadryl) 25 mg 1X PRN PRN IV ITCHING; Start 07/24/18 at 13:45; Stop 07/25/18 at 13:44; Status DC Sodium Chloride (Normal Saline Flush) 10 ml 1X PRN PRN IV AP catheter pack; Start 07/24/18 at 13:45; Stop 07/25/18 at 13:44; Status DC Sodium Chloride (Normal Saline Flush) 10 ml 1X PRN PRN IV REVENUE MANAGER catheter pack; Start 07/24/18 at 13:45; Stop 07/25/18 at 13:44; Status DC Sodium Chloride 1,000 ml @ 400 mls/hr Q2H30M PRN IV PATENCY; Start 07/24/18 at 13:36; Stop 07/25/18 at 01:35; Status DC Info (PHARMACY MONITORING -- do not chart) 1 each PRN DAILY PRN MC SEE COMMENTS ; Start 07/24/18 at 13:45; Stop 07/24/18 at 13:45; Status DC Propofol (Diprivan) 200 mg STK-MED ONCE IV ; Start 07/24/18 at 13:00; Stop at 08:16; Status DC Loperamide HCl (Imodium) 2 mg 1X ONCE PO Last administered on 07/25/18at 12:47; Start 07/25/18 at 11:15; Stop 07/25/18 at 11:16; Status DC Vancomycin HCl 500 mg/Sodium Chloride 100 ml @ 100 mls/hr QTUTHSA IV ; Start at 16:00; Stop 07/29/18 at 16:00; Status DC Vancomycin HCl (Vancomycin Random Level) 1 each 1X ONCE MC Last administered on 07/27/18at 06:00; Start 07/27/18 at 06:00; Stop 07/27/18 at 06:02; Status DC Simethicone (Gas-X) 80 mg PRN AFTMEALHC PRN PO GAS / BLOATING Last administered on 07/26/18at 16:12; Start 07/26/18 at 15:45 Lidocaine/ Epinephrine (LIDOCAINE 1%-EPI 1:100,000 Multi-Dose) 20 ml STK-MED ONCE .ROUTE ; Start 07/28/18 at 10:36; Stop 07/28/18 at 10:37; Status DC Heparin Sodium (Porcine) (Heparin Sodium) 10,000 unit STK-MED ONCE .ROUTE ; Start 07/28/18 at 10:38; Stop 07/28/18 at 10:39; Status DC Heparin Sodium/ Sodium Chloride 0 ml @ As Directed STK-MED ONCE .ROUTE ; Start 07/28/18 at 10:39; Stop 07/28/18 at 10:40; Status DC Sodium Chloride 1,000 ml @ 1,000 mls/hr Q1H PRN IV hypotension; Start 07/28/18 at 12:54; Stop 07/28/18 at 18:53; Status DC Sodium Chloride (Normal Saline Flush) 10 ml 1X PRN PRN IV AP catheter pack; Start 07/28/18 at 13:00; Stop 07/29/18 at 12:59; Status DC Sodium Chloride (Normal Saline Flush) 10 ml 1X PRN PRN IV REVENUE MANAGER catheter pack; Start 07/28/18 at 13:00; Stop 07/29/18 at 12:59; Status DC Info (PHARMACY MONITORING -- do not chart) 1 each PRN DAILY PRN MC SEE COMMENTS ; Start 07/28/18 at 13:00; Status UNV Info (PHARMACY MONITORING -- do not chart) 1 each PRN DAILY PRN MC SEE COMMENTS ; Start 07/28/18 at 13:00; Stop 07/29/18 at 07:20; Status DC Vancomycin HCl 500 mg/Sodium Chloride 100 ml @ 100 mls/hr QMWF IV Last administered on 07/28/18at 16:20; Start 07/28/18 at 16:00 Sodium Chloride 1,000 ml @ 1,000 mls/hr Q1H PRN IV hypotension; Start 07/29/18 at 07:02; Stop 07/29/18 at 13:01; Status DC Albumin Human 200 ml @ 200 mls/hr 1X PRN PRN IV Hypotension; Start 07/29/18 at 07:15; Stop 07/29/18 at 13:14; Status DC Acetaminophen (Tylenol) 500 mg 1X PRN PRN PO MILD PAIN / TEMP; Start 07/29/18 at 07:15; Stop 07/30/18 at 07:14 Diphenhydramine HCl (Benadryl) 25 mg 1X PRN PRN IV ITCHING; Start 07/29/18 at 07 :15; Stop 07/30/18 at 07:14 Diphenhydramine HCl (Benadryl) 25 mg 1X PRN PRN IV ITCHING; Start 07/29/18 at 07 :15; Stop 07/30/18 at 07:14 Sodium Chloride 1,000 ml @ 400 mls/hr Q2H30M PRN IV PATENCY; Start 07/29/18 at 07:02; Stop 07/29/18 at 19:01 Info (PHARMACY MONITORING -- do not chart) 1 each PRN DAILY PRN MC SEE COMMENTS ; Start 07/29/18 at 07:15; Stop 07/29/18 at 07:19; Status DC Active Scripts Active Reported Dialyvite Tablet (Folic Acid/Vitamin B Comp W-C) 1 Each Tablet 1 Each PO QPM QPM @ 1900 [hectorol] QTUTHSA [epogen] QTUTHSA Mirtazapine 15 Mg Tablet 1 Tab PO QHS Zoloft (Sertraline Hcl) 100 Mg Tablet 1 Tab PO DAILY Requip (Ropinirole Hcl) 1 Mg Tablet 3 Mg PO BID Mirtazapine 15 Mg Tablet 1 Tab PO QHS Megestrol Acetate 40 Mg Tablet 40 Mg PO BID Vitals/I & O Vital Sign - Last 24 Hours 07/28/18 07/28/18 07/28/18 07/28/18 15:46 19:00 20:09 20:20 Temp 97.6 97.8 97.6 97.8 Pulse 85 68 Resp 18 18 B/P (MAP) 191/136 (154) 131/82 (98) Pulse Ox 99 98 100 O2 Delivery Room Air Room Air Room Air Room Air 07/28/18 07/29/18 07/29/18 07/29/18 22:39 02:54 07:00 08:00 Temp 97.9 98.2 98.0 97.9 98.2 98.0 Pulse 62 65 81 Resp 18 18 18 B/P (MAP) 145/75 (98) 136/78 (97) 168/69 (102) Pulse Ox 97 99 99 O2 Delivery Room Air Room Air Room Air Room Air 07/29/18 07/29/18 09:00 11:00 Temp 98.4 98.4 Pulse 89 86 Resp 18 B/P (MAP) 107/69 155/68 (97) Pulse Ox 99 O2 Delivery Room Air Intake and Output 07/28/18 07/28/18 07/29/18 15:00 23:00 07:00 Intake Total 250 ml 520 ml 1120 ml Balance 250 ml 520 ml 1120 ml Nutrition Consultation Dietary Evaluation: Recommendations by RD: PPN/TPN, Add supplement feedings Comments: day 10 PPN - consider Diet per [employer] and monitor po intake vs need for tube feedings Expected Outcomes/Goals: po intake to improve to 50% of meals- goal ongoing Interpretation of weight loss: >1-2% in 1 week Malnutrition Findings: Food and Nutrition Intake (Sev: <50% est energy req 5days Body Fat Depletion (Non Severe: Mod to Severe Weight Status: Underweight TESS BOURNE MD Jul 29, 2018 14:56
--- NOTE | 2018-07-29 15:16 | NUR ---
SW following. Discussed with RN, RN advised pt having dialysis today. DANIELE met with pt to discuss SNU placement, pt would like to go to [facility] [place], DANIELE faxed updates to [facility]. RN notified. SW will continue to follow.
[2018-07-29] MEDS ORDERED: VANCOMYCIN 500 MG in IV NORMAL SALINE 100ML 100 ML IV SCH (16:00)
[2018-07-29] MEDS: FOLIC/VIT B COMP W-C (RENAL) TABLET. PO SCH (18:38)
[2018-07-29] MEDS: DARBEPOETIN ALFA 60 MCG/0.3 ML DISP.SYRIN. SQ SCH (20:23)
[2018-07-29] MEDS: MIRTAZAPINE 15 MG TABLET PO SCH (20:24)
[2018-07-30] VITALS (7 sets, daily range): BP systolic 133–197; BP diastolic 59–97
[2018-07-30] MEDS: VANCOMYCIN 125 MG/2.5 ML ORAL SOLUTION. PO SCH ×4 (00:13→18:46)
[2018-07-30] MEDS: IPRATRPIUM/ALBUTEROL 0.5/2.5MG 3 ML NEBU. NEB SCH ×2 (07:26→19:56)
[2018-07-30 09:22] LABS: BASO # 0.1 x10^3/uL (0.0-0.2); BASO % 1 % (0-3); EOS # 0.2 x10^3/uL (0.0-0.7); EOS % 2 % (0-3); HEMATOCRIT 22.2 % (36.0-47.0); HEMOGLOBIN 7.2 g/dL (12.0-15.5); LYMPH # 1.5 x10^3/uL (1.0-4.8); LYMPH % 16 % (24-48); MEAN CORPUSCULAR HEMOGLOBIN 28 pg (25-35); MEAN CORPUSCULAR HGB CONC 33 g/dL (31-37); MEAN CORPUSCULAR VOLUME 86 fL (79-100); MONO # 0.7 x10^3/uL (0.0-1.1); MONO % 7 % (0-9); NEUT # 7.1 x10^3uL (1.8-7.7); NEUT % 75 % (31-73); PLATELET COUNT 407 x10^3/uL (140-400); RED BLOOD COUNT 2.58 x10^6/uL (3.50-5.40); RED CELL DISTRIBUTION WIDTH 18.4 % (11.5-14.5); WHITE BLOOD COUNT 9.5 x10^3/uL (4.0-11.0)
[2018-07-30 09:24] LABS: CALCIUM 8.9 mg/dL (8.5-10.1); CREATININE 1.6 mg/dL (0.6-1.0); GFR 31.8
[2018-07-30] MEDS: SERTRALINE 50 MG TABLET. PO SCH (10:32)
[2018-07-30] MEDS: LACTOBACILLUS RHAMNOSUS GG 1 CAPSULE. PO SCH ×2 (10:32→20:21)
[2018-07-30] MEDS: MEGESTROL 20 MG TABLET. PO SCH ×2 (10:32→20:21)
[2018-07-30] MEDS: CEFTAROLINE FOSAMIL IV SCH ×2 (10:32→20:21)
[2018-07-30] MEDS: NORMAL SALINE IV SCH ×2 (10:32→20:21)
[2018-07-30] MEDS: VITAMIN B12,B9,B6 COMPLEX 1 TABLET. PO SCH (10:33)
[2018-07-30] MEDS: amLODIPine BESYLATE 10 MG TABLET PO SCH (10:33)
[2018-07-30] MEDS: rOPINIRole 1 MG TABLET. PO SCH ×2 (10:33→20:21)
[2018-07-30] MEDS: NYSTATIN 100,000 UNIT/GM TOPICAL CREAM 15GM TUBE. TP SCH ×2 (10:33→20:21)
[2018-07-30] MEDS: AMINO AC 3%/ELECTROLYTE/GLYCER 1,000 ML IV SCH (10:33)
--- NOTE | 2018-07-30 10:57 | PDOC ---
Infectious Disease Note Subjective: Subjective Pt is ok no n/v diarrhea is improving slowly Not eating well ROS: ROS Negative except for above. Vital Signs: Vital Signs Vital Signs Date Time Temp Pulse Resp B/P (MAP) Pulse Ox O2 Delivery O2 Flow Rate FiO2 07/30/18 10:33 100 175/69 07/30/18 07:27 98 Room Air 07/30/18 07:00 98.4 18 98.4 Physical Exam: PHYSICAL EXAM GENERAL: Lying down, weak appearing sad affect HEENT: Pupils are equal and reactive, with normal conjunctivae. + dentures NECK: Supple. LUNGS: Clear to auscultation. HEART: S1, S2. ABDOMEN: Soft and nontender. No guarding or rebound. EXTREMITIES: No clubbing, cyanosis or gross edema. SKIN: Warm to touch, no signs of rash. NEUROLOGIC: Arouses to voice, quiet Right chest hemodialysis catheter - clean Medications: Inpatient Meds: Current Medications Medications (Trade) Dose Ordered Sig/Jaswinder Start Time Stop Time Status Last Admin Dose Admin Acetaminophen (Tylenol) 500 mg 1X PRN PRN 07/29/18 07:15 07/30/18 07:14 DC Acetaminophen/ Hydrocodone Bitart (Lortab 5/325) 1 tab PRN Q6HRS PRN 07/19/18 20:00 Albumin Human 200 ml @ 200 mls/hr 1X PRN PRN 07/29/18 07:15 07/29/18 13:14 DC Albuterol/ Ipratropium (Duoneb) 3 ml RTBID 07/15/18 08:00 07/30/18 07:26 3 ML Amino Acids/ Glycerin/ Electrolytes 1,000 ml @ 80 mls/hr [id number] 07/19/18 11:45 07/30/18 10:33 80 MLS/HR Amlodipine Besylate (Norvasc) 10 mg DAILY 07/23/18 09:00 07/30/18 10:33 10 MG Benzocaine (Hurricaine One) 3 spray 1X ONCE 07/24/18 12:00 07/24/18 12:01 DC 07/24/18 13:11 2 SPRAY Cefazolin Sodium 50 ml @ As Directed STK-MED ONCE 07/22/18 12:45 07/22/18 12:46 DC Ceftaroline Fosamil 400 mg/ Sodium Chloride 250 ml @ 250 mls/hr Q12HR 07/22/18 14:00 07/30/18 10:32 250 MLS/HR Clotrimazole (Mycelex) 10 mg 5XDAY 07/16/18 14:00 07/28/18 14:13 DC 07/28/18 05:48 10 MG Darbepoetin Avery (Aranesp) 60 mcg WEEKLYHS 07/22/18 21:00 07/29/18 20:23 60 MCG Diphenhydramine HCl (Benadryl) 25 mg 1X PRN PRN 07/29/18 07:15 07/30/18 07:14 DC Fentanyl Citrate (Fentanyl 2ml Vial) 50 mcg PRN Q5MIN PRN 07/24/18 07:00 07/25/18 06:59 DC Heparin Sodium (Porcine) (Heparin Sodium) 10,000 unit STK-MED ONCE 07/28/18 10:38 07/28/18 10:39 DC Heparin Sodium/ Sodium Chloride 0 ml @ As Directed STK-MED ONCE 07/28/18 10:39 07/28/18 10:40 DC Info (PHARMACY MONITORING -- do not chart) 1 each PRN DAILY PRN 07/29/18 07:15 07/29/18 07:19 DC Labetalol HCl (Normodyne Iv Push) 10 mg PRN Q2HR PRN 07/23/18 09:30 Lactobacillus Rhamnosus (Culturelle) 1 cap BID 07/16/18 21:00 07/30/18 10:32 1 CAP Lidocaine HCl (Glydo (Lidocaine) Jelly) 1 rolly 1X ONCE 07/24/18 12:00 07/24/18 12:01 DC 07/24/18 13:10 1 ROLLY Lidocaine HCl (Lidocaine 1% 20ml Vial) 20 ml 1X ONCE 07/22/18 13:30 07/22/18 13:31 DC 07/22/18 13:27 9 ML Lidocaine HCl (Viscous Lidocaine) 15 ml 1X ONCE 07/24/18 12:00 07/24/18 12:01 DC 07/24/18 13:12 15 ML Lidocaine HCl (Xylocaine 2% Topical 5gm Tube) 1 rolly 1X ONCE 07/24/18 12:00 07/24/18 12:01 DC Lidocaine HCl (Xylocaine-Mpf 1% 2ml Vial) 2 ml PRN 1X PRN 07/24/18 07:00 07/25/18 06:59 DC Lidocaine/ Epinephrine (LIDOCAINE 1%-EPI 1:100,000 Multi-Dose) 20 ml STK-MED ONCE 07/28/18 10:36 07/28/18 10:37 DC Loperamide HCl (Imodium) 2 mg 1X ONCE 07/25/18 11:15 07/25/18 11:16 DC 07/25/18 12:47 2 MG Megestrol Acetate (Megace) 40 mg BID 07/15/18 09:00 07/30/18 10:32 40 MG Midazolam HCl (Versed) 2 mg 1X ONCE 07/22/18 13:30 07/22/18 13:31 DC 07/22/18 13:28 0.5 MG Mirtazapine (Remeron) 15 mg QHS 07/14/18 22:00 07/29/18 20:24 15 MG Morphine Sulfate (Morphine Sulfate) 2 mg PRN Q2HR PRN 07/14/18 17:15 07/15/18 17:14 DC Non-Formulary Medication (Mirtazapine ) 1 tab QHS 07/15/18 21:00 UNV Nystatin (Mycostatin) 1 rolly BID 07/23/18 21:00 07/30/18 10:33 1 ROLLY Ondansetron HCl (Zofran Odt) 4 mg PRN Q6HRS PRN 07/23/18 09:30 07/26/18 16:12 4 MG Ondansetron HCl (Zofran) 4 mg PRN Q6HRS PRN 07/24/18 07:00 07/25/18 06:59 DC Phytonadione (Mephyton Oral Soln) 5 mg 1X ONCE 07/14/18 22:00 07/14/18 22:01 DC 07/14/18 22:14 5 MG Piperacillin Sod/ Tazobactam Sod 4.5 gm/Sodium Chloride 100 ml @ 200 mls/hr 1X ONCE 07/14/18 15:00 07/14/18 15:29 DC 07/14/18 15:58 200 MLS/HR Potassium Chloride (Klor-Con) 40 meq AFTRNOON 07/19/18 13:00 07/23/18 15:10 40 MEQ Prochlorperazine Edisylate (Compazine) 5 mg PACU PRN PRN 07/24/18 07:00 07/25/18 06:59 DC Propofol (Diprivan) 200 mg STK-MED ONCE 07/24/18 13:00 07/25/18 08:16 DC Ringer's Solution 1,000 ml @ 30 mls/hr Q24H 07/24/18 07:00 07/24/18 18:59 DC Ropinirole HCl (Requip) 1 mg PRN QEVNG PRN 07/16/18 20:00 07/26/18 17:46 1 MG Sertraline HCl (Zoloft) 100 mg DAILY 07/15/18 09:00 07/30/18 10:32 100 MG Simethicone (Gas-X) 80 mg PRN AFTMEALHC PRN 07/26/18 15:45 07/26/18 16:12 80 MG Sodium Chloride 1,000 ml @ 400 mls/hr Q2H30M PRN 07/29/18 07:02 07/29/18 19:01 DC Sodium Chloride (Normal Saline Flush) 10 ml 1X PRN PRN 07/28/18 13:00 07/29/18 12:59 DC Tramadol HCl (Ultram) 50 mg PRN Q6HRS PRN 07/23/18 09:30 Vancomycin HCl (Vanco Per Pharmacy) 1 each PRN DAILY PRN 07/14/18 14:45 07/28/18 14:04 1 EACH Vancomycin HCl (Vancomycin Random Level) 1 each 1X ONCE 07/27/18 06:00 07/27/18 06:02 DC 07/27/18 06:00 1 EACH Vancomycin HCl (Vancomycin Oral Solution) 125 mg Q6HRS 07/17/18 00:00 07/30/18 00:13 125 MG Vancomycin HCl 1.25 gm/Sodium Chloride 250 ml @ 166.667 mls/hr 1X ONCE 07/14/18 15:00 07/14/18 16:29 DC 07/14/18 18:10 166.667 MLS/HR Vancomycin HCl 500 mg/Sodium Chloride 100 ml @ 100 mls/hr QMWF 07/28/18 16:00 07/28/18 16:20 100 MLS/HR Vancomycin HCl 750 mg/Sodium Chloride 250 ml @ 250 mls/hr 1X ONCE 07/21/18 16:00 07/21/18 16:59 Cancel Vitamin B Complex (Folbic Tablet) 1 tab DAILY 07/15/18 09:00 07/30/18 10:33 1 TAB Vitamin B Complex/ Vitamin C (Dinorah-Ralph) 1 tab QPM 07/15/18 18:00 07/29/18 18:38 1 TAB Labs: Lab Laboratory Tests Test 07/30/18 08:27 White Blood Count 9.5 x10^3/uL (4.0-11.0) Red Blood Count 2.58 x10^6/uL (3.50-5.40) Hemoglobin 7.2 g/dL (12.0-15.5) Hematocrit 22.2 % (36.0-47.0) Mean Corpuscular Volume 86 fL (79-100) Mean Corpuscular Hemoglobin 28 pg (25-35) Mean Corpuscular Hemoglobin Concent 33 g/dL (31-37) Red Cell Distribution Width 18.4 % (11.5-14.5) Platelet Count 407 x10^3/uL (140-400) Neutrophils (%) (Auto) 75 % (31-73) Lymphocytes (%) (Auto) 16 % (24-48) Monocytes (%) (Auto) 7 % (0-9) Eosinophils (%) (Auto) 2 % (0-3) Basophils (%) (Auto) 1 % (0-3) Neutrophils # (Auto) 7.1 x10^3uL (1.8-7.7) Lymphocytes # (Auto) 1.5 x10^3/uL (1.0-4.8) Monocytes # (Auto) 0.7 x10^3/uL (0.0-1.1) Eosinophils # (Auto) 0.2 x10^3/uL (0.0-0.7) Basophils # (Auto) 0.1 x10^3/uL (0.0-0.2) Sodium Level 139 mmol/L (136-145) Potassium Level 3.0 mmol/L (3.5-5.1) Chloride Level 101 mmol/L (98-107) Carbon Dioxide Level 28 mmol/L (21-32) Anion Gap 10 (6-14) Blood Urea Nitrogen 10 mg/dL (7-20) Creatinine 1.6 mg/dL (0.6-1.0) Estimated GFR (Cockcroft-Gault) 31.8 Glucose Level 95 mg/dL (70-99) Calcium Level 8.9 mg/dL (8.5-10.1) Micro BC neg from 07/24 Objective: Assessment: MRSA bacteremia POA 07/14 (R tetra) - repeat BC 07/18 and 07/20 positive, - BC neg from 07/24 NGTD - 2D echo neg vegetation; on 07/24 RAMON showed HD catheter w/ large mobile vegetation or thrombus (measuring at least 2.5 x 1.1 cm) extending into the RA. -s/p tunneled HDC line removal on 07/18. s/p replacement 07/23 , C. difficile from 07/16 positive Thrush - better Anemia - S/p PRBCs Leukocytosis CKD on HD Severe Protein malnutrition Failure to thrive. Plan: Plan of Care Cont po/IV Vanc and ceftaroline, latter 2 drugs renal dosing Probiotics f/u cultures Contact isolation GIANFRANCO GOLD MD Jul 30, 2018 10:57
--- NOTE | 2018-07-30 12:44 | NUR ---
SW following. Discussed with RN, pt is on PPN, has been eating some today. Pt will need to be off PPN to go to [facility]. SW awaiting discharge information. SW will continue to follow. RN notified.
[2018-07-30] MEDS: POTASSIUM CHLORIDE 20 MEQ TABLET.ER. PO SCH (13:05)
--- NOTE | 2018-07-30 13:24 | RAD ---
Fluoroscopic evaluation of a right internal jugular tunnel dialysis [id number] Discussion: Evaluation of right internal jugular tunneled dialysis catheter was requested. Per report, the catheter would not aspirate. However, on exam catheter is normal in position under fluoroscopy and was found to flush and aspirate normally. Catheter was flushed, packed with heparin, patient returned to floor. Fluoroscopy time: 0 minutes 1 static radiographic image was obtained during the exam Normal fluoroscopic appearance and apparent function of right internal jugular tunnel dialysis catheter.
[2018-07-30] MEDS: VANCOMYCIN 500 MG in IV NORMAL SALINE 100ML 100 ML IV SCH (16:11)
--- NOTE | 2018-07-30 16:20 | PDOC ---
PROGRESS NOTES Chief Complaint Chief Complaint impression Staph bacteremia with severe risk of complications 2D echo neg vegetation; on 07/24 RAMON showed HD catheter w/ large mobile vegetation or thrombus (measuring at least 2.5 x 1.1 cm) extending into the RA. -s/p tunneled HDC line removal on 07/18. s/p replacement 07/23 C. difficile from 07/16 positive ESRD on dialysis Anemia of ESRD Leukocytosis/sepsis C. difficile DNR Hyponatremia Hyperkalemia Vascular dementia HTN Anxiety Depression noncompliance with PT/OT 07/25 PLAN: Cont vanc iv and oral HD per renal supportive care encourage as much activity as tolerated follow cultures DNR pt/ot NEW PERMCATH placed on 07/28 History of Present Illness History of Present Illness dialysis catheter inserted Blood cultures are positive - staph bacteremia many bottles ID FOLLOWING Patient on vancomycin No fever, WBC still elevated Hemoglobin stable status post transfusion. On contact Isol because of bacteremia and C. difficile positivity Palliative note reviewed, patient wishes to continue dialysis 07/25 Earlier entry: 72 yo f w/ PMHx CVA with vascular dementia, HTN, anxiety, depression, end-stage renal disease on dialysis Saturday, Saturday, (new dx 2018), last dialyzed on Saturday who p/w fever, decreased appetite, fever, decreased energy/ weakness, symptoms began 3 days ago. Found with Hb of 5.6 in ED, transfused PRBC to 7.5. She was noted with loose stools as well. She has history dementia but she is alert to person only, but is able to carry on a conversation and give some health history. She does not refuse dialysis every day. She was seen here this past January 2018 and May 2018 and sent home with home health ([place]). She has a DPOA, Ivy the nephew has been texting who has been informed of hospital admission. 07/15: Seen on dialysis today. She has some chills with this. Notably, lab called about 3/4 bottles positive on blood culture for GPC in clusters. 07/16: Feeling terrible today. Has diarrhea x2 POSITIVE FOR C. DIFFICILE. She has bilateral LQ pain. Started on oral vancomycin and continued on IV Vancomycin 07/17: Still with poor PO intake 07/18: HD catheter pulled. Culture looks like MRSA 07/19: Still not eating, started PPN. Still with repeat blood cultures 1/4 bottles positive 07/21 DECISION FOR PALLIATIVE CARE Needed GRAM POSITIVE COCCI IN CLUSTERS, SUGGESTIVE OF STAPH, IN 4 OF 5 BOTTLES, 3 SETS DRAWN ON 07/20/18. ALL 3 SETS ARE POSITIVE. Still with some loose stools. Positive / repeat blood cultures after line was pulled. Denies SOB and CP. She does have some catheter site pain where it was pulled. 07/25 NONCOMPLIANT WITH PT/OT, BLOOD CUL PENDING, REPEAT, high risk of complications due to noncompliance per my personal review of chart 07/26 PERMCATH NONFUNCTIONAL. NEW PERMCATH SATURDAY refusing to eat lunch today, bp uncontrolled 07/27 still not eating well, noncompliant 07/28 NOT IMPROVED FAR COMPLIANCE, POOR APPETITE 07/28 Problem List (body system elements) * Impaired fnctnl mobility * Strength * Balance * Knowledge-safe techniques NEEDS SNF 07/29 Patient with no acute events reported overnight, patient with improving appetite, will see how much she is able to eat today and hopefully wean off procalamine. No fever chills diaphoresis reported. 07/30 patient with no acute events reported overnight. Continues to try to eat a little bit more, but still very debilitated. Reassurances been provided her diarrhea is slowly improving Vitals Vitals Vital Signs Date Time Temp Pulse Resp B/P (MAP) Pulse Ox O2 Delivery O2 Flow Rate FiO2 07/30/18 13:13 79 157/62 (93) 07/30/18 11:00 98.3 17 99 Room Air 98.3 Physical Exam Physical Exam GENERAL: Lying down, weak appearing sad affect HEENT: Pupils are equal and reactive, with normal conjunctivae. + dentures NECK: Supple. LUNGS: Clear to auscultation. HEART: S1, S2. ABDOMEN: Soft and nontender. No guarding or rebound. EXTREMITIES: No clubbing, cyanosis or gross edema. SKIN: Warm to touch, no signs of rash. NEUROLOGIC: Arouses to voice, quiet Right chest hemodialysis catheter - clean General: Alert, Oriented X3, No acute distress, Other (poorly oriented) Heart: Regular rate, Normal S1 Lungs: Clear Abdomen: Normal bowel sounds, Soft, No tenderness Extremities: No clubbing, No cyanosis, Normal pulses Skin: No rashes, No significant lesion Labs LABS Laboratory Tests Test 07/30/18 08:27 White Blood Count 9.5 x10^3/uL (4.0-11.0) Red Blood Count 2.58 x10^6/uL (3.50-5.40) Hemoglobin 7.2 g/dL (12.0-15.5) Hematocrit 22.2 % (36.0-47.0) Mean Corpuscular Volume 86 fL (79-100) Mean Corpuscular Hemoglobin 28 pg (25-35) Mean Corpuscular Hemoglobin Concent 33 g/dL (31-37) Red Cell Distribution Width 18.4 % (11.5-14.5) Platelet Count 407 x10^3/uL (140-400) Neutrophils (%) (Auto) 75 % (31-73) Lymphocytes (%) (Auto) 16 % (24-48) Monocytes (%) (Auto) 7 % (0-9) Eosinophils (%) (Auto) 2 % (0-3) Basophils (%) (Auto) 1 % (0-3) Neutrophils # (Auto) 7.1 x10^3uL (1.8-7.7) Lymphocytes # (Auto) 1.5 x10^3/uL (1.0-4.8) Monocytes # (Auto) 0.7 x10^3/uL (0.0-1.1) Eosinophils # (Auto) 0.2 x10^3/uL (0.0-0.7) Basophils # (Auto) 0.1 x10^3/uL (0.0-0.2) Sodium Level 139 mmol/L (136-145) Potassium Level 3.0 mmol/L (3.5-5.1) Chloride Level 101 mmol/L (98-107) Carbon Dioxide Level 28 mmol/L (21-32) Anion Gap 10 (6-14) Blood Urea Nitrogen 10 mg/dL (7-20) Creatinine 1.6 mg/dL (0.6-1.0) Estimated GFR (Cockcroft-Gault) 31.8 Glucose Level 95 mg/dL (70-99) Calcium Level 8.9 mg/dL (8.5-10.1) Assessment and Plan Assessmemt and Plan Problems Medical Problems: (1) End stage renal disease Status: Acute (2) Generalized weakness Status: Acute Comment Review of Relevant I have reviewed the following items linda (where applicable) has been applied. Labs Laboratory Tests Test 07/30/18 08:27 White Blood Count 9.5 x10^3/uL (4.0-11.0) Red Blood Count 2.58 x10^6/uL (3.50-5.40) Hemoglobin 7.2 g/dL (12.0-15.5) Hematocrit 22.2 % (36.0-47.0) Mean Corpuscular Volume 86 fL (79-100) Mean Corpuscular Hemoglobin 28 pg (25-35) Mean Corpuscular Hemoglobin Concent 33 g/dL (31-37) Red Cell Distribution Width 18.4 % (11.5-14.5) Platelet Count 407 x10^3/uL (140-400) Neutrophils (%) (Auto) 75 % (31-73) Lymphocytes (%) (Auto) 16 % (24-48) Monocytes (%) (Auto) 7 % (0-9) Eosinophils (%) (Auto) 2 % (0-3) Basophils (%) (Auto) 1 % (0-3) Neutrophils # (Auto) 7.1 x10^3uL (1.8-7.7) Lymphocytes # (Auto) 1.5 x10^3/uL (1.0-4.8) Monocytes # (Auto) 0.7 x10^3/uL (0.0-1.1) Eosinophils # (Auto) 0.2 x10^3/uL (0.0-0.7) Basophils # (Auto) 0.1 x10^3/uL (0.0-0.2) Sodium Level 139 mmol/L (136-145) Potassium Level 3.0 mmol/L (3.5-5.1) Chloride Level 101 mmol/L (98-107) Carbon Dioxide Level 28 mmol/L (21-32) Anion Gap 10 (6-14) Blood Urea Nitrogen 10 mg/dL (7-20) Creatinine 1.6 mg/dL (0.6-1.0) Estimated GFR (Cockcroft-Gault) 31.8 Glucose Level 95 mg/dL (70-99) Calcium Level 8.9 mg/dL (8.5-10.1) Laboratory Tests Test 07/30/18 08:27 White Blood Count 9.5 x10^3/uL (4.0-11.0) Red Blood Count 2.58 x10^6/uL (3.50-5.40) Hemoglobin 7.2 g/dL (12.0-15.5) Hematocrit 22.2 % (36.0-47.0) Mean Corpuscular Volume 86 fL (79-100) Mean Corpuscular Hemoglobin 28 pg (25-35) Mean Corpuscular Hemoglobin Concent 33 g/dL (31-37) Red Cell Distribution Width 18.4 % (11.5-14.5) Platelet Count 407 x10^3/uL (140-400) Neutrophils (%) (Auto) 75 % (31-73) Lymphocytes (%) (Auto) 16 % (24-48) Monocytes (%) (Auto) 7 % (0-9) Eosinophils (%) (Auto) 2 % (0-3) Basophils (%) (Auto) 1 % (0-3) Neutrophils # (Auto) 7.1 x10^3uL (1.8-7.7) Lymphocytes # (Auto) 1.5 x10^3/uL (1.0-4.8) Monocytes # (Auto) 0.7 x10^3/uL (0.0-1.1) Eosinophils # (Auto) 0.2 x10^3/uL (0.0-0.7) Basophils # (Auto) 0.1 x10^3/uL (0.0-0.2) Sodium Level 139 mmol/L (136-145) Potassium Level 3.0 mmol/L (3.5-5.1) Chloride Level 101 mmol/L (98-107) Carbon Dioxide Level 28 mmol/L (21-32) Anion Gap 10 (6-14) Blood Urea Nitrogen 10 mg/dL (7-20) Creatinine 1.6 mg/dL (0.6-1.0) Estimated GFR (Cockcroft-Gault) 31.8 Glucose Level 95 mg/dL (70-99) Calcium Level 8.9 mg/dL (8.5-10.1) Microbiology 07/28/18 Blood Culture - Preliminary, Resulted NO GROWTH AFTER 2 DAYS 07/14/18 Urine Culture - Final, Complete 07/14/18 Urine Culture Result 1 (MARYANN) - Final, Complete Medications Current Medications Piperacillin Sod/ Tazobactam Sod 4.5 gm/Sodium Chloride 100 ml @ 200 mls/hr 1X ONCE IV Last administered on 07/14/18at 15:58; Start 07/14/18 at 15:00; Stop 07/14/18 at 15:29; Status DC Vancomycin HCl (Vanco Per Pharmacy) 1 each PRN DAILY PRN MC SEE COMMENTS Last administered on 07/28/18 14:04; Start 07/14/18 at 14:45 Vancomycin HCl 1.25 gm/Sodium Chloride 250 ml @ 166.667 mls/hr 1X ONCE IV Last administered on 07/14/18 18:10; Start 07/14/18 at 15:00; Stop 07/14/18 at 16:29; Status DC Ondansetron HCl (Zofran) 4 mg PRN Q8HRS PRN IV NAUSEA/VOMITING; Start 07/14/18 at 17:15; Stop 07/15/18 at 17:14; Status DC Morphine Sulfate (Morphine Sulfate) 2 mg PRN Q2HR PRN IV PAIN; Start 07/14/18 at 17:15; Stop 07/15/18 at 17:14; Status DC Acetaminophen (Tylenol) 650 mg PRN Q4HRS PRN PO FEVER; Start 07/14/18 at 17:15 ; Stop 07/15/18 at 17:14; Status DC Vancomycin HCl (Vancomycin Random Level) 1 each 1X ONCE MC ; Start 07/15/18 at 06:00; Stop 07/15/18 at 06:01; Status DC Vitamin B Complex/ Vitamin C (Dniorah-Ralph) 1 tab QPM PO Last administered on 18:38; Start 07/15/18 at 18:00 Megestrol Acetate (Megace) 40 mg BID PO Last administered on 07/30/18 10:32; Start 07/15/18 at 09:00 Mirtazapine (Remeron) 15 mg QHS PO Last administered on 07/29/18 20:24; Start 07/14/18 at 22:00 Non-Formulary Medication (Mirtazapine ) 1 tab QHS PO ; Start 07/15/18 at 21:00; Status UNV Ropinirole HCl (Requip) 3 mg BID PO Last administered on 07/16/18at 18:21; Start 07/14/18 at 22:00; Stop 07/16/18 at 19:54; Status DC Sertraline HCl (Zoloft) 100 mg DAILY PO Last administered on 07/30/18 10:32; Start 07/15/18 at 09:00 Phytonadione (Mephyton Oral Soln) 5 mg 1X ONCE PO Last administered on 22:14; Start 07/14/18 at 22:00; Stop 07/14/18 at 22:01; Status DC Vitamin B Complex (Folbic Tablet) 1 tab DAILY PO Last administered on 07/30/18 10:33; Start 07/15/18 at 09:00 Albuterol/ Ipratropium (Duoneb) 3 ml RTBID NEB Last administered on 07/30/18 07 :26; Start 07/15/18 at 08:00 Sodium Chloride 1,000 ml @ 1,000 mls/hr Q1H PRN IV hypotension; Start 07/15/18 at 10:48; Stop 07/15/18 at 16:47; Status DC Albumin Human 200 ml @ 200 mls/hr 1X PRN PRN IV Hypotension; Start 07/15/18 at 11:00; Stop 07/15/18 at 16:59; Status DC Sodium Chloride 1,000 ml @ 400 mls/hr Q2H30M PRN IV PATENCY; Start 07/15/18 at 10:48; Stop 07/15/18 at 22:47; Status DC Info (PHARMACY MONITORING -- do not chart) 1 each PRN DAILY PRN MC SEE COMMENTS ; Start 07/15/18 at 11:00; Status UNV Info (PHARMACY MONITORING -- do not chart) 1 each PRN DAILY PRN MC SEE COMMENTS ; Start 07/15/18 at 11:00; Stop 07/22/18 at 14:31; Status DC Vancomycin HCl 500 mg/Sodium Chloride 100 ml @ 100 mls/hr QTUTHSA IV Last administered on 07/17/18at 16:44; Start 07/17/18 at 16:00; Stop 07/18/18 at 15:41 ; Status DC Lactobacillus Rhamnosus (Culturelle) 1 cap BID PO Last administered on 10:32; Start 07/16/18 at 21:00 Clotrimazole (Mycelex) 10 mg 5XDAY MM Last administered on 07/28/18at 05:48; Start 07/16/18 at 14:00; Stop 07/28/18 at 14:13; Status DC Ropinirole HCl (Requip) 3 mg DAILY PO Last administered on 07/30/18at 10:33; Start 07/17/18 at 09:00 Ropinirole HCl (Requip) 2 mg QHS PO Last administered on 07/29/18at 20:24; Start 07/16/18 at 21:00 Ropinirole HCl (Requip) 1 mg PRN QEVNG PRN PO RLS Last administered on at 17:46; Start 07/16/18 at 20:00 Vancomycin HCl (Vancomycin Oral Solution) 125 mg Q6HRS PO Last administered on 07/30/18at 12:59; Start 07/17/18 at 00:00 Sodium Chloride 1,000 ml @ 1,000 mls/hr Q1H PRN IV hypotension; Start 07/17/18 at 14:55; Stop 07/17/18 at 20:54; Status DC Sodium Chloride 1,000 ml @ 400 mls/hr Q2H30M PRN IV PATENCY; Start 07/17/18 at 14:55; Stop 07/18/18 at 02:54; Status DC Info (PHARMACY MONITORING -- do not chart) 1 each PRN DAILY PRN MC SEE COMMENTS ; Start 07/17/18 at 15:00; Stop 07/17/18 at 15:00; Status DC Info (PHARMACY MONITORING -- do not chart) 1 each PRN DAILY PRN MC SEE COMMENTS ; Start 07/17/18 at 15:00; Stop 07/17/18 at 15:00; Status DC Sodium Chloride 1,000 ml @ 1,000 mls/hr Q1H PRN IV hypotension; Start 07/18/18 at 11:30; Stop 07/18/18 at 17:29; Status DC Sodium Chloride 1,000 ml @ 400 mls/hr Q2H30M PRN IV PATENCY; Start 07/18/18 at 11:30; Stop 07/18/18 at 23:29; Status DC Info (PHARMACY MONITORING -- do not chart) 1 each PRN DAILY PRN MC SEE COMMENTS ; Start 07/18/18 at 12:30; Status UNV Info (PHARMACY MONITORING -- do not chart) 1 each PRN DAILY PRN MC SEE COMMENTS ; Start 07/18/18 at 12:30; Status UNV Vancomycin HCl 500 mg/Sodium Chloride 100 ml @ 100 mls/hr 1X ONCE IV Last administered on 07/18/18at 16:40; Start 07/18/18 at 16:00; Stop 07/18/18 at 16:59 ; Status DC Amino Acids/ Glycerin/ Electrolytes 1,000 ml @ 80 mls/hr [id number] IV Last administered on 07/30/18at 10:33; Start 07/19/18 at 11:45 Potassium Chloride (Klor-Con) 40 meq AFTRNOON PO Last administered on 07/30/18at 13:05; Start 07/19/18 at 13:00 Vancomycin HCl 500 mg/Sodium Chloride 100 ml @ 100 mls/hr 1X ONCE IV ; Start 07/21/18 at 16:00; Stop 07/21/18 at 16:59; Status Cancel Acetaminophen/ Hydrocodone Bitart (Lortab 5/325) 1 tab PRN Q6HRS PRN PO SEVERE PAIN; Start 07/19/18 at 20:00 Sodium Chloride 1,000 ml @ 1,000 mls/hr Q1H PRN IV hypotension; Start 07/21/18 at 12:29; Stop 07/21/18 at 18:28; Status DC Sodium Chloride (Normal Saline Flush) 10 ml 1X PRN PRN IV AP catheter pack; Start 07/21/18 at 12:30; Stop 07/22/18 at 12:29; Status DC Sodium Chloride (Normal Saline Flush) 10 ml 1X PRN PRN IV AUTO SERVICER catheter pack; Start 07/21/18 at 12:30; Stop 07/22/18 at 12:29; Status DC Sodium Chloride 1,000 ml @ 400 mls/hr Q2H30M PRN IV PATENCY; Start 07/21/18 at 12:29; Stop 07/22/18 at 00:28; Status DC Info (PHARMACY MONITORING -- do not chart) 1 each PRN DAILY PRN MC SEE COMMENTS ; Start 07/21/18 at 12:30; Status UNV Info (PHARMACY MONITORING -- do not chart) 1 each PRN DAILY PRN MC SEE COMMENTS ; Start 07/21/18 at 12:30; Status Cancel Vancomycin HCl 750 mg/Sodium Chloride 250 ml @ 250 mls/hr 1X ONCE IV ; Start 07/21/18 at 16:00; Stop 07/21/18 at 16:59; Status Cancel Vancomycin HCl 500 mg/Sodium Chloride 100 ml @ 100 mls/hr 1X ONCE IV Last administered on 07/21/18at 21:35; Start 07/21/18 at 18:30; Stop 07/21/18 at 19:29 ; Status DC Lidocaine/ Epinephrine (LIDOCAINE 1%-EPI 1:100,000 Multi-Dose) 20 ml STK-MED ONCE .ROUTE ; Start 07/22/18 at 11:46; Stop 07/22/18 at 11:47; Status DC Cefazolin Sodium 50 ml @ As Directed STK-MED ONCE IV ; Start 07/22/18 at 12:45; Stop 07/22/18 at 12:46; Status DC Midazolam HCl (Versed) 2 mg STK-MED ONCE .ROUTE ; Start 07/22/18 at 12:45; Stop 07/22/18 at 12:46; Status DC Fentanyl Citrate (Fentanyl 2ml Vial) 100 mcg STK-MED ONCE .ROUTE ; Start at 12:45; Stop 07/22/18 at 12:46; Status DC Vancomycin HCl 500 mg/Sodium Chloride 100 ml @ 100 mls/hr QTUTHSA IV Last administered on 07/24/18at 18:27; Start 07/22/18 at 16:00; Stop 07/26/18 at 14:45 ; Status DC Midazolam HCl (Versed) 2 mg 1X ONCE IV Last administered on 07/22/18at 13:28; Start 07/22/18 at 13:30; Stop 07/22/18 at 13:31; Status DC Fentanyl Citrate (Fentanyl 2ml Vial) 100 mcg 1X ONCE IV Last administered on at 13:27; Start 07/22/18 at 13:30; Stop 07/22/18 at 13:31; Status DC Lidocaine HCl (Lidocaine 1% 20ml Vial) 20 ml 1X ONCE INJ Last administered on 07/22/18at 13:27; Start 07/22/18 at 13:30; Stop 07/22/18 at 13:31; Status DC Ceftaroline Fosamil 400 mg/ Sodium Chloride 250 ml @ 250 mls/hr Q12HR IV Last administered on 07/30/18at 10:32; Start 07/22/18 at 14:00 Darbepoetin Avery (Aranesp) 60 mcg [id number] SQ Last administered on 07/29/18at 20: 23; Start 07/22/18 at 21:00 Sodium Chloride 1,000 ml @ 1,000 mls/hr Q1H PRN IV hypotension; Start 07/22/18 at 15:20; Stop 07/22/18 at 21:19; Status DC Albumin Human 200 ml @ 200 mls/hr 1X PRN PRN IV Hypotension; Start 07/22/18 at 15:30; Stop 07/22/18 at 21:29; Status DC Acetaminophen (Tylenol) 500 mg 1X PRN PRN PO MILD PAIN / TEMP; Start 07/22/18 at 15:30; Stop 07/23/18 at 15:29; Status DC Diphenhydramine HCl (Benadryl) 25 mg 1X PRN PRN IV ITCHING; Start 07/22/18 at 15:30; Stop 07/23/18 at 15:29; Status DC Diphenhydramine HCl (Benadryl) 25 mg 1X PRN PRN IV ITCHING; Start 07/22/18 at 15:30; Stop 07/23/18 at 15:29; Status DC Sodium Chloride (Normal Saline Flush) 10 ml 1X PRN PRN IV AP catheter pack; Start 07/22/18 at 15:30; Stop 07/23/18 at 15:29; Status DC Sodium Chloride (Normal Saline Flush) 10 ml 1X PRN PRN IV AUTO SERVICER catheter pack; Start 07/22/18 at 15:30; Stop 07/23/18 at 15:29; Status DC Sodium Chloride 1,000 ml @ 400 mls/hr Q2H30M PRN IV PATENCY; Start 07/22/18 at 15:20; Stop 07/23/18 at 03:19; Status DC Info (PHARMACY MONITORING -- do not chart) 1 each PRN DAILY PRN MC SEE COMMENTS ; Start 07/22/18 at 15:30; Stop 07/22/18 at 15:30; Status DC Sodium Chloride 1,000 ml @ 1,000 mls/hr Q1H PRN IV hypotension; Start 07/23/18 at 07:00; Stop 07/23/18 at 12:59; Status DC Sodium Chloride 1,000 ml @ 400 mls/hr Q2H30M PRN IV PATENCY; Start 07/23/18 at 07:00; Stop 07/23/18 at 18:59; Status DC Info (PHARMACY MONITORING -- do not chart) 1 each PRN DAILY PRN MC SEE COMMENTS ; Start 07/23/18 at 09:00; Status UNV Info (PHARMACY MONITORING -- do not chart) 1 each PRN DAILY PRN MC SEE COMMENTS ; Start 07/23/18 at 09:00 Labetalol HCl (Normodyne Iv Push) 10 mg PRN Q2HR PRN IVP HYPERTENSION, SEE COMMENTS; Start 07/23/18 at 09:30 Acetaminophen (Tylenol) 500 mg PRN Q6HRS PRN PO MILD PAIN / TEMP; Start at 09:30 Ondansetron HCl (Zofran) 4 mg PRN Q6HRS PRN IV NAUSEA/VOMITING Last administered on 07/26/18at 16:17; Start 07/23/18 at 09:30 Ondansetron HCl (Zofran Odt) 4 mg PRN Q6HRS PRN PO NAUSEA/VOMITING Last administered on 07/26/18at 16:12; Start 07/23/18 at 09:30 Tramadol HCl (Ultram) 50 mg PRN Q6HRS PRN PO MODERATE PAIN; Start 07/23/18 at 09:30 Amlodipine Besylate (Norvasc) 10 mg DAILY PO Last administered on 07/30/18at 10: 33; Start 07/23/18 at 09:00 Ondansetron HCl (Zofran) 4 mg PRN Q6HRS PRN IV NAUSEA/VOMITING; Start 07/24/18 at 07:00; Stop 07/25/18 at 06:59; Status DC Fentanyl Citrate (Fentanyl 2ml Vial) 25 mcg PRN Q5MIN PRN IV MILD PAIN; Start 07/24/18 at 07:00; Stop 07/25/18 at 06:59; Status DC Fentanyl Citrate (Fentanyl 2ml Vial) 50 mcg PRN Q5MIN PRN IV MODERATE TO SEVERE PAIN; Start 07/24/18 at 07:00; Stop 07/25/18 at 06:59; Status DC Ringer's Solution 1,000 ml @ 30 mls/hr Q24H IV ; Start 07/24/18 at 07:00; Stop 07/24/18 at 18:59; Status DC Lidocaine HCl (Xylocaine-Mpf 1% 2ml Vial) 2 ml PRN 1X PRN ID PRIOR TO IV START ; Start 07/24/18 at 07:00; Stop 07/25/18 at 06:59; Status DC Prochlorperazine Edisylate (Compazine) 5 mg PACU PRN PRN IV NAUSEA, MRX1; Start 07/24/18 at 07:00; Stop 07/25/18 at 06:59; Status DC Vancomycin HCl 500 mg/Sodium Chloride 100 ml @ 100 mls/hr ONCE ONCE IV Last administered on 07/23/18at 17:23; Start 07/23/18 at 16:00; Stop 07/23/18 at 16:59 ; Status DC Nystatin (Mycostatin) 1 rolly BID TP Last administered on 07/30/18at 10:33; Start 07/23/18 at 21:00 Benzocaine (Hurricaine One) 1 spray STK-MED ONCE .ROUTE ; Start 07/24/18 at 11: 49; Stop 07/24/18 at 11:50; Status Cancel Lidocaine HCl (Viscous Lidocaine) 15 ml STK-MED ONCE .ROUTE ; Start 07/24/18 at 11:49; Stop 07/24/18 at 11:50; Status DC Lidocaine HCl (Xylocaine 2% Topical 5gm Tube) 1 rolly 1X ONCE TP ; Start at 12:00; Stop 07/24/18 at 12:01; Status DC Lidocaine HCl (Viscous Lidocaine) 15 ml 1X ONCE SWSW Last administered on 07/24at 13:12; Start 07/24/18 at 12:00; Stop 07/24/18 at 12:01; Status DC Benzocaine (Hurricaine One) 3 spray 1X ONCE MM Last administered on 07/24/18at 13:11; Start 07/24/18 at 12:00; Stop 07/24/18 at 12:01; Status DC Lidocaine HCl (Glydo (Lidocaine) Jelly) 1 rolly 1X ONCE MM Last administered on 07/24/18at 13:10; Start 07/24/18 at 12:00; Stop 07/24/18 at 12:01; Status DC Sodium Chloride 1,000 ml @ 1,000 mls/hr Q1H PRN IV hypotension; Start 07/24/18 at 13:36; Stop 07/24/18 at 19:35; Status DC Albumin Human 200 ml @ 200 mls/hr 1X PRN PRN IV Hypotension; Start 07/24/18 at 13:45; Stop 07/24/18 at 19:44; Status DC Acetaminophen (Tylenol) 500 mg 1X PRN PRN PO MILD PAIN / TEMP; Start 07/24/18 at 13:45; Stop 07/25/18 at 13:44; Status DC Diphenhydramine HCl (Benadryl) 25 mg 1X PRN PRN IV ITCHING; Start 07/24/18 at 13:45; Stop 07/25/18 at 13:44; Status DC Diphenhydramine HCl (Benadryl) 25 mg 1X PRN PRN IV ITCHING; Start 07/24/18 at 13:45; Stop 07/25/18 at 13:44; Status DC Sodium Chloride (Normal Saline Flush) 10 ml 1X PRN PRN IV AP catheter pack; Start 07/24/18 at 13:45; Stop 07/25/18 at 13:44; Status DC Sodium Chloride (Normal Saline Flush) 10 ml 1X PRN PRN IV AUTO SERVICER catheter pack; Start 07/24/18 at 13:45; Stop 07/25/18 at 13:44; Status DC Sodium Chloride 1,000 ml @ 400 mls/hr Q2H30M PRN IV PATENCY; Start 07/24/18 at 13:36; Stop 07/25/18 at 01:35; Status DC Info (PHARMACY MONITORING -- do not chart) 1 each PRN DAILY PRN MC SEE COMMENTS ; Start 07/24/18 at 13:45; Stop 07/24/18 at 13:45; Status DC Propofol (Diprivan) 200 mg STK-MED ONCE IV ; Start 07/24/18 at 13:00; Stop at 08:16; Status DC Loperamide HCl (Imodium) 2 mg 1X ONCE PO Last administered on 07/25/18at 12:47; Start 07/25/18 at 11:15; Stop 07/25/18 at 11:16; Status DC Vancomycin HCl 500 mg/Sodium Chloride 100 ml @ 100 mls/hr QTUTHSA IV ; Start at 16:00; Stop 07/29/18 at 16:00; Status DC Vancomycin HCl (Vancomycin Random Level) 1 each 1X ONCE MC Last administered on 07/27/18at 06:00; Start 07/27/18 at 06:00; Stop 07/27/18 at 06:02; Status DC Simethicone (Gas-X) 80 mg PRN AFTMEALHC PRN PO GAS / BLOATING Last administered on 07/26/18at 16:12; Start 07/26/18 at 15:45 Lidocaine/ Epinephrine (LIDOCAINE 1%-EPI 1:100,000 Multi-Dose) 20 ml STK-MED ONCE .ROUTE ; Start 07/28/18 at 10:36; Stop 07/28/18 at 10:37; Status DC Heparin Sodium (Porcine) (Heparin Sodium) 10,000 unit STK-MED ONCE .ROUTE ; Start 07/28/18 at 10:38; Stop 07/28/18 at 10:39; Status DC Heparin Sodium/ Sodium Chloride 0 ml @ As Directed STK-MED ONCE .ROUTE ; Start 07/28/18 at 10:39; Stop 07/28/18 at 10:40; Status DC Sodium Chloride 1,000 ml @ 1,000 mls/hr Q1H PRN IV hypotension; Start 07/28/18 at 12:54; Stop 07/28/18 at 18:53; Status DC Sodium Chloride (Normal Saline Flush) 10 ml 1X PRN PRN IV AP catheter pack; Start 07/28/18 at 13:00; Stop 07/29/18 at 12:59; Status DC Sodium Chloride (Normal Saline Flush) 10 ml 1X PRN PRN IV [employer] catheter pack; Start 07/28/18 at 13:00; Stop 07/29/18 at 12:59; Status DC Info (PHARMACY MONITORING -- do not chart) 1 each PRN DAILY PRN MC SEE COMMENTS ; Start 07/28/18 at 13:00; Status UNV Info (PHARMACY MONITORING -- do not chart) 1 each PRN DAILY PRN MC SEE COMMENTS ; Start 07/28/18 at 13:00; Stop 07/29/18 at 07:20; Status DC Vancomycin HCl 500 mg/Sodium Chloride 100 ml @ 100 mls/hr QMWF IV Last administered on 07/30/18at 16:11; Start 07/28/18 at 16:00 Sodium Chloride 1,000 ml @ 1,000 mls/hr Q1H PRN IV hypotension; Start 07/29/18 at 07:02; Stop 07/29/18 at 13:01; Status DC Albumin Human 200 ml @ 200 mls/hr 1X PRN PRN IV Hypotension; Start 07/29/18 at 07:15; Stop 07/29/18 at 13:14; Status DC Acetaminophen (Tylenol) 500 mg 1X PRN PRN PO MILD PAIN / TEMP; Start 07/29/18 at 07:15; Stop 07/30/18 at 07:14; Status DC Diphenhydramine HCl (Benadryl) 25 mg 1X PRN PRN IV ITCHING; Start 07/29/18 at 07 :15; Stop 07/30/18 at 07:14; Status DC Diphenhydramine HCl (Benadryl) 25 mg 1X PRN PRN IV ITCHING; Start 07/29/18 at 07 :15; Stop 07/30/18 at 07:14; Status DC Sodium Chloride 1,000 ml @ 400 mls/hr Q2H30M PRN IV PATENCY; Start 07/29/18 at 07:02; Stop 07/29/18 at 19:01; Status DC Info (PHARMACY MONITORING -- do not chart) 1 each PRN DAILY PRN MC SEE COMMENTS ; Start 07/29/18 at 07:15; Stop 07/29/18 at 07:19; Status DC Active Scripts Active Reported Dialyvite Tablet (Folic Acid/Vitamin B Comp W-C) 1 Each Tablet 1 Each PO QPM QPM @ 1900 [hectorol] QTUTHSA [epogen] QTUTHSA Mirtazapine 15 Mg Tablet 1 Tab PO QHS Zoloft (Sertraline Hcl) 100 Mg Tablet 1 Tab PO DAILY Requip (Ropinirole Hcl) 1 Mg Tablet 3 Mg PO BID Mirtazapine 15 Mg Tablet 1 Tab PO QHS Megestrol Acetate 40 Mg Tablet 40 Mg PO BID Vitals/I & O Vital Sign - Last 24 Hours 07/29/18 07/29/18 07/29/18 07/29/18 19:00 19:09 19:50 23:00 Temp 98.1 97.8 98.1 97.8 Pulse 82 85 Resp 20 20 B/P (MAP) 166/69 (101) 138/89 (105) Pulse Ox 98 98 O2 Delivery Room Air Room Air 07/30/18 07/30/18 07/30/18 07/30/18 03:00 07:00 07:27 10:33 Temp 98.9 98.4 98.9 98.4 Pulse 85 100 100 Resp 18 18 B/P (MAP) 187/69 (108) 175/69 (104) 175/69 Pulse Ox 97 97 98 O2 Delivery Room Air Room Air 07/30/18 07/30/18 11:00 13:13 Temp 98.3 98.3 Pulse 97 79 Resp 17 B/P (MAP) 197/97 (130) 157/62 (93) Pulse Ox 99 O2 Delivery Room Air Intake and Output 07/29/18 07/29/18 07/30/18 15:00 23:00 07:00 Intake Total 250 ml 1470 ml Output Total 200 ml Balance 250 ml 1470 ml -200 ml Nutrition Consultation Dietary Evaluation: Recommendations by RD: PPN/TPN, Add supplement feedings Comments: day 10 PPN - consider Diet per COMPUTER SYSTEMS SECURITY ANALYST and monitor po intake vs need for tube feedings Expected Outcomes/Goals: po intake to improve to 50% of meals- goal ongoing Interpretation of weight loss: >1-2% in 1 week Malnutrition Findings: Food and Nutrition Intake (Sev: <50% est energy req 5days Body Fat Depletion (Non Severe: Mod to Severe Weight Status: Underweight TESS BOURNE MD Jul 30, 2018 16:20
[2018-07-30] MEDS: FOLIC/VIT B COMP W-C (RENAL) TABLET. PO SCH (18:45)
[2018-07-30] MEDS: MIRTAZAPINE 15 MG TABLET PO SCH (20:21)
[2018-07-31] MEDS: AMINO AC 3%/ELECTROLYTE/GLYCER 1,000 ML IV SCH ×2 (00:32→11:15)
[2018-07-31] MEDS: VANCOMYCIN 125 MG/2.5 ML ORAL SOLUTION. PO SCH ×4 (00:32→16:57)
[2018-07-31 03:00] VITALS: BP 92/41
[2018-07-31 07:00] VITALS: BP 156/72
[2018-07-31] MEDS: IPRATRPIUM/ALBUTEROL 0.5/2.5MG 3 ML NEBU. NEB SCH ×2 (07:07→21:08)
[2018-07-31] MEDS ORDERED: IV NORMAL SALINE 1000ML BAG 1,000 ML IV PRN ×2 (08:36)
[2018-07-31] MEDS ORDERED: DIALYSIS PATIENT. MC PRN (08:45)
[2018-07-31] MEDS: NYSTATIN 100,000 UNIT/GM TOPICAL CREAM 15GM TUBE. TP SCH ×2 (09:00→20:35)
--- NOTE | 2018-07-31 09:25 | NUR ---
Patient is in dialysis at this time; will assess and administer medications post-dialysis
--- NOTE | 2018-07-31 10:14 | PDOC ---
Infectious Disease Note Subjective: Subjective Pt is ok no n/v no diarrhea improving po intake ROS: ROS Negative except for above. Vital Signs: Vital Signs Vital Signs Date Time Temp Pulse Resp B/P (MAP) Pulse Ox O2 Delivery O2 Flow Rate FiO2 07/31/18 07:08 96 Room Air 07/31/18 07:00 98.1 69 18 156/72 (100) 98.1 Physical Exam: PHYSICAL EXAM GENERAL: Lying down, weak appearing sad affect HEENT: Pupils are equal and reactive, with normal conjunctivae. + dentures NECK: Supple. LUNGS: Clear to auscultation. HEART: S1, S2. ABDOMEN: Soft and nontender. No guarding or rebound. EXTREMITIES: No clubbing, cyanosis or gross edema. SKIN: Warm to touch, no signs of rash. NEUROLOGIC: Arouses to voice, quiet Right chest hemodialysis catheter - clean Medications: Inpatient Meds: Current Medications Medications (Trade) Dose Ordered Sig/Jaswinder Start Time Stop Time Status Last Admin Dose Admin Acetaminophen (Tylenol) 500 mg 1X PRN PRN 07/29/18 07:15 07/30/18 07:14 DC Acetaminophen/ Hydrocodone Bitart (Lortab 5/325) 1 tab PRN Q6HRS PRN 07/19/18 20:00 Albumin Human 200 ml @ 200 mls/hr 1X PRN PRN 07/29/18 07:15 07/29/18 13:14 DC Albuterol/ Ipratropium (Duoneb) 3 ml RTBID 07/15/18 08:00 07/31/18 07:07 3 ML Amino Acids/ Glycerin/ Electrolytes 1,000 ml @ 80 mls/hr [id number] 07/19/18 11:45 07/31/18 00:32 80 MLS/HR Amlodipine Besylate (Norvasc) 10 mg DAILY 07/23/18 09:00 07/30/18 10:33 10 MG Benzocaine (Hurricaine One) 3 spray 1X ONCE 07/24/18 12:00 07/24/18 12:01 DC 07/24/18 13:11 2 SPRAY Cefazolin Sodium 50 ml @ As Directed STK-MED ONCE 07/22/18 12:45 07/22/18 12:46 DC Ceftaroline Fosamil 400 mg/ Sodium Chloride 250 ml @ 250 mls/hr Q12HR 07/22/18 14:00 07/30/18 20:21 250 MLS/HR Clotrimazole (Mycelex) 10 mg 5XDAY 07/16/18 14:00 07/28/18 14:13 DC 07/28/18 05:48 10 MG Darbepoetin Avery (Aranesp) 60 mcg WEEKLYHS 07/22/18 21:00 07/29/18 20:23 60 MCG Diphenhydramine HCl (Benadryl) 25 mg 1X PRN PRN 07/29/18 07:15 07/30/18 07:14 DC Fentanyl Citrate (Fentanyl 2ml Vial) 50 mcg PRN Q5MIN PRN 07/24/18 07:00 07/25/18 06:59 DC Heparin Sodium (Porcine) (Heparin Sodium) 10,000 unit STK-MED ONCE 07/28/18 10:38 07/28/18 10:39 DC Heparin Sodium/ Sodium Chloride 0 ml @ As Directed STK-MED ONCE 07/28/18 10:39 07/28/18 10:40 DC Info (PHARMACY MONITORING -- do not chart) 1 each PRN DAILY PRN 07/31/18 08:45 UNV Labetalol HCl (Normodyne Iv Push) 10 mg PRN Q2HR PRN 07/23/18 09:30 Lactobacillus Rhamnosus (Culturelle) 1 cap BID 07/16/18 21:00 07/30/18 20:21 1 CAP Lidocaine HCl (Glydo (Lidocaine) Jelly) 1 rolly 1X ONCE 07/24/18 12:00 07/24/18 12:01 DC 07/24/18 13:10 1 ROLLY Lidocaine HCl (Lidocaine 1% 20ml Vial) 20 ml 1X ONCE 07/22/18 13:30 07/22/18 13:31 DC 07/22/18 13:27 9 ML Lidocaine HCl (Viscous Lidocaine) 15 ml 1X ONCE 07/24/18 12:00 07/24/18 12:01 DC 07/24/18 13:12 15 ML Lidocaine HCl (Xylocaine 2% Topical 5gm Tube) 1 rolly 1X ONCE 07/24/18 12:00 07/24/18 12:01 DC Lidocaine HCl (Xylocaine-Mpf 1% 2ml Vial) 2 ml PRN 1X PRN 07/24/18 07:00 07/25/18 06:59 DC Lidocaine/ Epinephrine (LIDOCAINE 1%-EPI 1:100,000 Multi-Dose) 20 ml STK-MED ONCE 07/28/18 10:36 07/28/18 10:37 DC Loperamide HCl (Imodium) 2 mg 1X ONCE 07/25/18 11:15 07/25/18 11:16 DC 07/25/18 12:47 2 MG Megestrol Acetate (Megace) 40 mg BID 07/15/18 09:00 07/30/18 20:21 40 MG Midazolam HCl (Versed) 2 mg 1X ONCE 07/22/18 13:30 07/22/18 13:31 DC 07/22/18 13:28 0.5 MG Mirtazapine (Remeron) 15 mg QHS 07/14/18 22:00 07/30/18 20:21 15 MG Morphine Sulfate (Morphine Sulfate) 2 mg PRN Q2HR PRN 07/14/18 17:15 07/15/18 17:14 DC Non-Formulary Medication (Mirtazapine ) 1 tab QHS 07/15/18 21:00 UNV Nystatin (Mycostatin) 1 rolly BID 07/23/18 21:00 07/30/18 20:21 1 ROLLY Ondansetron HCl (Zofran Odt) 4 mg PRN Q6HRS PRN 07/23/18 09:30 07/26/18 16:12 4 MG Ondansetron HCl (Zofran) 4 mg PRN Q6HRS PRN 07/24/18 07:00 07/25/18 06:59 DC Phytonadione (Mephyton Oral Soln) 5 mg 1X ONCE 07/14/18 22:00 07/14/18 22:01 DC 07/14/18 22:14 5 MG Piperacillin Sod/ Tazobactam Sod 4.5 gm/Sodium Chloride 100 ml @ 200 mls/hr 1X ONCE 07/14/18 15:00 07/14/18 15:29 DC 07/14/18 15:58 200 MLS/HR Potassium Chloride (Klor-Con) 40 meq AFTRNOON 07/19/18 13:00 07/30/18 13:05 40 MEQ Prochlorperazine Edisylate (Compazine) 5 mg PACU PRN PRN 07/24/18 07:00 07/25/18 06:59 DC Propofol (Diprivan) 200 mg STK-MED ONCE 07/24/18 13:00 07/25/18 08:16 DC Ringer's Solution 1,000 ml @ 30 mls/hr Q24H 07/24/18 07:00 07/24/18 18:59 DC Ropinirole HCl (Requip) 1 mg PRN QEVNG PRN 07/16/18 20:00 07/26/18 17:46 1 MG Sertraline HCl (Zoloft) 100 mg DAILY 07/15/18 09:00 07/30/18 10:32 100 MG Simethicone (Gas-X) 80 mg PRN AFTMEALHC PRN 07/26/18 15:45 07/26/18 16:12 80 MG Sodium Chloride 1,000 ml @ 400 mls/hr Q2H30M PRN 07/31/18 08:36 07/31/18 20:35 Sodium Chloride (Normal Saline Flush) 10 ml 1X PRN PRN 07/28/18 13:00 07/29/18 12:59 DC Tramadol HCl (Ultram) 50 mg PRN Q6HRS PRN 07/23/18 09:30 Vancomycin HCl (Vanco Per Pharmacy) 1 each PRN DAILY PRN 07/14/18 14:45 07/28/18 14:04 1 EACH Vancomycin HCl (Vancomycin Random Level) 1 each 1X ONCE 07/27/18 06:00 07/27/18 06:02 DC 07/27/18 06:00 1 EACH Vancomycin HCl (Vancomycin Oral Solution) 125 mg Q6HRS 07/17/18 00:00 07/31/18 05:44 125 MG Vancomycin HCl 1.25 gm/Sodium Chloride 250 ml @ 166.667 mls/hr 1X ONCE 07/14/18 15:00 07/14/18 16:29 DC 07/14/18 18:10 166.667 MLS/HR Vancomycin HCl 500 mg/Sodium Chloride 100 ml @ 100 mls/hr QMWF 07/28/18 16:00 07/30/18 16:11 100 MLS/HR Vancomycin HCl 750 mg/Sodium Chloride 250 ml @ 250 mls/hr 1X ONCE 07/21/18 16:00 07/21/18 16:59 Cancel Vitamin B Complex (Folbic Tablet) 1 tab DAILY 07/15/18 09:00 07/30/18 10:33 1 TAB Vitamin B Complex/ Vitamin C (Dinorah-Ralph) 1 tab QPM 07/15/18 18:00 07/30/18 18:45 1 TAB Labs: Micro BC neg from 07/24 and 07/28 Objective: Assessment: 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 -s/p tunneled HDC line removal on 07/18. s/p replacement 07/23 , C. difficile from 07/16 positive Thrush - better Anemia - S/p PRBCs Leukocytosis CKD on HD Severe Protein malnutrition Failure to thrive. Plan: Plan of Care Cont po/IV Vanc postdialysis DC Ceftaroline Duration of IV Vanc will be atleast 4 weeks from last neg BC 07/24 script for iv vanc and po vanc in chart renal team/sw to arrange for dialysis dosing of IV Vanc cont po vanco with prolonged taper Probiotics f/u cultures plans [facility] labs cbc ,fax results to [id number] f/u with us in 2-3 weeks D/W GIANFRANCO LION MD Jul 31, 2018 10:14
--- NOTE | 2018-07-31 12:00 | NUR ---
Patient returned from dialysis. Medications and assessment done.
[2018-07-31] MEDS: NORMAL SALINE IV SCH ×2 (12:14→20:34)
[2018-07-31] MEDS: CEFTAROLINE FOSAMIL IV SCH ×2 (12:14→20:34)
[2018-07-31] MEDS: VITAMIN B12,B9,B6 COMPLEX 1 TABLET. PO SCH (12:15)
[2018-07-31] MEDS: rOPINIRole 1 MG TABLET. PO SCH ×2 (12:15→20:34)
[2018-07-31] MEDS: amLODIPine BESYLATE 10 MG TABLET PO SCH (12:16)
[2018-07-31] MEDS: MEGESTROL 20 MG TABLET. PO SCH ×2 (12:17→20:34)
[2018-07-31] MEDS: LACTOBACILLUS RHAMNOSUS GG 1 CAPSULE. PO SCH ×2 (12:17→20:34)
[2018-07-31] MEDS: SERTRALINE 50 MG TABLET. PO SCH (12:17)
[2018-07-31] MEDS: POTASSIUM CHLORIDE 20 MEQ TABLET.ER. PO SCH (13:00)
--- NOTE | 2018-07-31 13:46 | NUR ---
SW following. Discussed with RN. Pt cannot go to SNU on PPN or TPN. RN advised pt has not eaten very much today. Pt had dialysis today. SW will continue to follow.
--- NOTE | 2018-07-31 14:05 | PDOC ---
SUBJECTIVE ROS seen on HD, no concerns voiced OBJECTIVE Vital Signs Vital Signs Date Time Temp Pulse Resp B/P (MAP) Pulse Ox O2 Delivery O2 Flow Rate FiO2 07/31/18 12:16 69 156/72 07/31/18 07:08 96 Room Air 07/31/18 07:00 98.1 18 98.1 I & 0 Intake and Output 07/31/18 06:59 Intake Total 1470 ml Balance 1470 ml Intake Oral 220 ml IV Total 1250 ml # Voids 6 # Bowel Movements 5 PHYSICAL EXAM Physical Exam GENERAL: nad HEENT: Pupils are equal and reactive, with normal conjunctivae. + dentures NECK: Supple. LUNGS: Clear to auscultation. HEART: S1, S2. ABDOMEN: Soft and nontender. No guarding or rebound. EXTREMITIES: No clubbing, cyanosis or gross edema. SKIN: Warm to touch, no signs of rash. Right chest hemodialysis catheter DIAGNOSIS/ASSESSMENT Assessment & Plan ESRD- On HD TTS Seen on Hd, tolerating well, continue as ordered Dw analytics lead , No issues with TDC RSA (R tetra) bacteremia POA 07/14 s/p tunneled HDC line removal on 07/18. s/p replacement 07/23 C. difficile from 07/16 positive Anemia - S/p PRBCs On Aranesp Severe Protein malnutrition Failure to thrive COMMENT/RELEVANT DATA Meds Current Medications Medications (Trade) Dose Ordered Sig/Jaswinder Start Time Stop Time Status Last Admin Dose Admin Acetaminophen (Tylenol) 500 mg 1X PRN PRN 07/29/18 07:15 07/30/18 07:14 DC Acetaminophen/ Hydrocodone Bitart (Lortab 5/325) 1 tab PRN Q6HRS PRN 07/19/18 20:00 Albumin Human 200 ml @ 200 mls/hr 1X PRN PRN 07/29/18 07:15 07/29/18 13:14 DC Albuterol/ Ipratropium (Duoneb) 3 ml RTBID 07/15/18 08:00 07/31/18 07:07 3 ML Amino Acids/ Glycerin/ Electrolytes 1,000 ml @ 80 mls/hr [id number] 07/19/18 11:45 07/31/18 00:32 80 MLS/HR Amlodipine Besylate (Norvasc) 10 mg DAILY 07/23/18 09:00 07/31/18 12:16 10 MG Benzocaine (Hurricaine One) 3 spray 1X ONCE 07/24/18 12:00 07/24/18 12:01 DC 07/24/18 13:11 2 SPRAY Cefazolin Sodium 50 ml @ As Directed STK-MED ONCE 07/22/18 12:45 07/22/18 12:46 DC Ceftaroline Fosamil 400 mg/ Sodium Chloride 250 ml @ 250 mls/hr Q12HR 07/22/18 14:00 07/31/18 12:14 250 MLS/HR Clotrimazole (Mycelex) 10 mg 5XDAY 07/16/18 14:00 07/28/18 14:13 DC 07/28/18 05:48 10 MG Darbepoetin Avery (Aranesp) 60 mcg WEEKLYHS 07/22/18 21:00 07/29/18 20:23 60 MCG Diphenhydramine HCl (Benadryl) 25 mg 1X PRN PRN 07/29/18 07:15 07/30/18 07:14 DC Fentanyl Citrate (Fentanyl 2ml Vial) 50 mcg PRN Q5MIN PRN 07/24/18 07:00 07/25/18 06:59 DC Heparin Sodium (Porcine) (Heparin Sodium) 10,000 unit STK-MED ONCE 07/28/18 10:38 07/28/18 10:39 DC Heparin Sodium/ Sodium Chloride 0 ml @ As Directed STK-MED ONCE 07/28/18 10:39 07/28/18 10:40 DC Info (PHARMACY MONITORING -- do not chart) 1 each PRN DAILY PRN 07/31/18 08:45 UNV Labetalol HCl (Normodyne Iv Push) 10 mg PRN Q2HR PRN 07/23/18 09:30 Lactobacillus Rhamnosus (Culturelle) 1 cap BID 07/16/18 21:00 07/31/18 12:17 1 CAP Lidocaine HCl (Glydo (Lidocaine) Jelly) 1 rolly 1X ONCE 07/24/18 12:00 07/24/18 12:01 DC 07/24/18 13:10 1 ROLLY Lidocaine HCl (Lidocaine 1% 20ml Vial) 20 ml 1X ONCE 07/22/18 13:30 07/22/18 13:31 DC 07/22/18 13:27 9 ML Lidocaine HCl (Viscous Lidocaine) 15 ml 1X ONCE 07/24/18 12:00 07/24/18 12:01 DC 07/24/18 13:12 15 ML Lidocaine HCl (Xylocaine 2% Topical 5gm Tube) 1 rolly 1X ONCE 07/24/18 12:00 07/24/18 12:01 DC Lidocaine HCl (Xylocaine-Mpf 1% 2ml Vial) 2 ml PRN 1X PRN 07/24/18 07:00 07/25/18 06:59 DC Lidocaine/ Epinephrine (LIDOCAINE 1%-EPI 1:100,000 Multi-Dose) 20 ml STK-MED ONCE 07/28/18 10:36 07/28/18 10:37 DC Loperamide HCl (Imodium) 2 mg 1X ONCE 07/25/18 11:15 07/25/18 11:16 DC 07/25/18 12:47 2 MG Megestrol Acetate (Megace) 40 mg BID 07/15/18 09:00 07/31/18 12:17 40 MG Midazolam HCl (Versed) 2 mg 1X ONCE 07/22/18 13:30 07/22/18 13:31 DC 07/22/18 13:28 0.5 MG Mirtazapine (Remeron) 15 mg QHS 07/14/18 22:00 07/30/18 20:21 15 MG Morphine Sulfate (Morphine Sulfate) 2 mg PRN Q2HR PRN 07/14/18 17:15 07/15/18 17:14 DC Non-Formulary Medication (Mirtazapine ) 1 tab QHS 07/15/18 21:00 UNV Nystatin (Mycostatin) 1 rolly BID 07/23/18 21:00 07/30/18 20:21 1 ROLLY Ondansetron HCl (Zofran Odt) 4 mg PRN Q6HRS PRN 07/23/18 09:30 07/26/18 16:12 4 MG Ondansetron HCl (Zofran) 4 mg PRN Q6HRS PRN 07/24/18 07:00 07/25/18 06:59 DC Phytonadione (Mephyton Oral Soln) 5 mg 1X ONCE 07/14/18 22:00 07/14/18 22:01 DC 07/14/18 22:14 5 MG Piperacillin Sod/ Tazobactam Sod 4.5 gm/Sodium Chloride 100 ml @ 200 mls/hr 1X ONCE 07/14/18 15:00 07/14/18 15:29 DC 07/14/18 15:58 200 MLS/HR Potassium Chloride (Klor-Con) 40 meq AFTRNOON 07/19/18 13:00 07/31/18 13:00 40 MEQ Prochlorperazine Edisylate (Compazine) 5 mg PACU PRN PRN 07/24/18 07:00 07/25/18 06:59 DC Propofol (Diprivan) 200 mg STK-MED ONCE 07/24/18 13:00 07/25/18 08:16 DC Ringer's Solution 1,000 ml @ 30 mls/hr Q24H 07/24/18 07:00 07/24/18 18:59 DC Ropinirole HCl (Requip) 1 mg PRN QEVNG PRN 07/16/18 20:00 07/26/18 17:46 1 MG Sertraline HCl (Zoloft) 100 mg DAILY 07/15/18 09:00 07/31/18 12:17 100 MG Simethicone (Gas-X) 80 mg PRN AFTMEALHC PRN 07/26/18 15:45 07/26/18 16:12 80 MG Sodium Chloride 1,000 ml @ 400 mls/hr Q2H30M PRN 07/31/18 08:36 07/31/18 20:35 Sodium Chloride (Normal Saline Flush) 10 ml 1X PRN PRN 07/28/18 13:00 07/29/18 12:59 DC Tramadol HCl (Ultram) 50 mg PRN Q6HRS PRN 07/23/18 09:30 Vancomycin HCl (Vanco Per Pharmacy) 1 each PRN DAILY PRN 07/14/18 14:45 07/28/18 14:04 1 EACH Vancomycin HCl (Vancomycin Random Level) 1 each 1X ONCE 07/27/18 06:00 07/27/18 06:02 DC 07/27/18 06:00 1 EACH Vancomycin HCl (Vancomycin Oral Solution) 125 mg Q6HRS 07/17/18 00:00 07/31/18 12:18 125 MG Vancomycin HCl 1.25 gm/Sodium Chloride 250 ml @ 166.667 mls/hr 1X ONCE 07/14/18 15:00 07/14/18 16:29 DC 07/14/18 18:10 166.667 MLS/HR Vancomycin HCl 500 mg/Sodium Chloride 100 ml @ 100 mls/hr QMWF 07/28/18 16:00 07/30/18 16:11 100 MLS/HR Vancomycin HCl 750 mg/Sodium Chloride 250 ml @ 250 mls/hr 1X ONCE 07/21/18 16:00 07/21/18 16:59 Cancel Vitamin B Complex (Folbic Tablet) 1 tab DAILY 07/15/18 09:00 07/31/18 12:15 1 TAB Vitamin B Complex/ Vitamin C (Dinorah-Ralph) 1 tab QPM 07/15/18 18:00 07/30/18 18:45 1 TAB Results All relevant outside records, renal labs, imaging studies, telemetry/EKG's were reviewed. ANNA ZHANG MD Jul 31, 2018 14:05
[2018-07-31] MEDS: VANCOMYCIN PER PHARMACY MC PRN ×2 (14:25→14:32)
[2018-07-31 15:00] VITALS: BP 147/57
[2018-07-31] MEDS: VANCOMYCIN 500 MG in IV NORMAL SALINE 100ML 100 ML IV SCH (16:58)
[2018-07-31] MEDS: FOLIC/VIT B COMP W-C (RENAL) TABLET. PO SCH (17:21)
--- NOTE | 2018-07-31 18:34 | PDOC ---
PROGRESS NOTES Chief Complaint Chief Complaint Staph bacteremia with severe risk of complications 2D echo neg vegetation; on 07/24 RAMON showed HD catheter w/ large mobile vegetation or thrombus (measuring at least 2.5 x 1.1 cm) extending into the RA. -s/p tunneled HDC line removal on 07/18. s/p replacement 07/23 C. difficile from 07/16 positive ESRD on dialysis Anemia of ESRD Leukocytosis/sepsis C. difficile diarrhea improved DNR Hyponatremia secondary to low effective circulatory volume resolved Hypokalemia replacing as per nephrology Vascular dementia HTN Anxiety Depression noncompliance with PT/OT Severe protein calorie malnutrition due to poor oral intake PLAN: Cont vanc iv and oral HD per renal supportive care encourage as much activity as tolerated follow cultures DNR pt/ot NEW PERMCATH placed on 07/28 patient will need placement, will have to discuss possible dobhoff tube for feedings vs more permanent solution moving forward since she is not eating enough History of Present Illness History of Present Illness No fever, WBC resolved Hemoglobin stable status post transfusion. On contact Isol because of bacteremia and C. difficile positivity Palliative note reviewed, patient wishes to continue dialysis 07/25 Earlier entry: 72 yo f w/ PMHx CVA with vascular dementia, HTN, anxiety, depression, end-stage renal disease on dialysis Saturday, Saturday, (new dx 2018), last dialyzed on Saturday who p/w fever, decreased appetite, fever, decreased energy/ weakness, symptoms began 3 days ago. Found with Hb of 5.6 in ED, transfused PRBC to 7.5. She was noted with loose stools as well. She has history dementia but she is alert to person only, but is able to carry on a conversation and give some health history. She does not refuse dialysis every day. She was seen here this past January 2018 and May 2018 and sent home with home health ([email or web address]). She has a DPOA, Ivy the nephew has been texting who has been informed of hospital admission. 07/15: Seen on dialysis today. She has some chills with this. Notably, lab called about 3/4 bottles positive on blood culture for GPC in clusters. 07/16: Feeling terrible today. Has diarrhea x2 POSITIVE FOR C. DIFFICILE. She has bilateral LQ pain. Started on oral vancomycin and continued on IV Vancomycin 07/17: Still with poor PO intake 07/18: HD catheter pulled. Culture looks like MRSA 07/19: Still not eating, started PPN. Still with repeat blood cultures 1/4 bottles positive 07/21 DECISION FOR PALLIATIVE CARE Needed GRAM POSITIVE COCCI IN CLUSTERS, SUGGESTIVE OF STAPH, IN 4 OF 5 BOTTLES, 3 SETS DRAWN ON 07/20/18. ALL 3 SETS ARE POSITIVE. Still with some loose stools. Positive 2/ repeat blood cultures after line was pulled. Denies SOB and CP. She does have some catheter site pain where it was pulled. 07/25 NONCOMPLIANT WITH PT/OT, BLOOD CUL PENDING, REPEAT, high risk of complications due to noncompliance per my personal review of chart 07/26 [facility]ATH NONFUNCTIONAL. NEW [facility]ATH SATURDAY refusing to eat lunch today, bp uncontrolled 07/27 still not eating well, noncompliant 07/28 NOT IMPROVED FAR COMPLIANCE, POOR APPETITE 07/28 Problem List (body system elements) * Impaired fnctnl mobility * Strength * Balance * Knowledge-safe techniques NEEDS SNF 07/29 Patient with no acute events reported overnight, patient with improving appetite, will see how much she is able to eat today and hopefully wean off procalamine. No fever chills diaphoresis reported. 07/30 patient with no acute events reported overnight. Continues to try to eat a little bit more, but still very debilitated. Reassurances been provided her diarrhea is slowly improving 07/31 patient very lethargic after dialysis seems to be her usual norm as per nursing staff, she is not eating much of her meals will readdress her nutritional status once she is more receptive for a conversation. Vitals Vitals Vital Signs Date Time Temp Pulse Resp B/P (MAP) Pulse Ox O2 Delivery O2 Flow Rate FiO2 07/31/18 15:00 98.5 63 18 147/57 (87) 97 Room Air 98.5 Physical Exam Physical Exam GENERAL: Lying down, weak appearing sad affect HEENT: Pupils are equal and reactive, with normal conjunctivae. + dentures NECK: Supple. LUNGS: Clear to auscultation. HEART: S1, S2. ABDOMEN: Soft and nontender. No guarding or rebound. EXTREMITIES: No clubbing, cyanosis or gross edema. SKIN: Warm to touch, no signs of rash. NEUROLOGIC: Arouses to voice, quiet Right chest hemodialysis catheter - clean General: Alert, Oriented X3, No acute distress, Other (poorly oriented) Heart: Regular rate, Normal S1 Lungs: Clear Abdomen: Normal bowel sounds, Soft, No tenderness Extremities: No clubbing, No cyanosis, Normal pulses Skin: No rashes, No significant lesion Review of Systems Review of Systems -10 point review of system on the pertinent as per history of present illness Assessment and Plan Assessmemt and Plan Problems Medical Problems: (1) End stage renal disease Status: Acute (2) Generalized weakness Status: Acute Comment Review of Relevant I have reviewed the following items linda (where applicable) has been applied. Labs Laboratory Tests Test 07/30/18 08:27 White Blood Count 9.5 x10^3/uL (4.0-11.0) Red Blood Count 2.58 x10^6/uL (3.50-5.40) Hemoglobin 7.2 g/dL (12.0-15.5) Hematocrit 22.2 % (36.0-47.0) Mean Corpuscular Volume 86 fL (79-100) Mean Corpuscular Hemoglobin 28 pg (25-35) Mean Corpuscular Hemoglobin Concent 33 g/dL (31-37) Red Cell Distribution Width 18.4 % (11.5-14.5) Platelet Count 407 x10^3/uL (140-400) Neutrophils (%) (Auto) 75 % (31-73) Lymphocytes (%) (Auto) 16 % (24-48) Monocytes (%) (Auto) 7 % (0-9) Eosinophils (%) (Auto) 2 % (0-3) Basophils (%) (Auto) 1 % (0-3) Neutrophils # (Auto) 7.1 x10^3uL (1.8-7.7) Lymphocytes # (Auto) 1.5 x10^3/uL (1.0-4.8) Monocytes # (Auto) 0.7 x10^3/uL (0.0-1.1) Eosinophils # (Auto) 0.2 x10^3/uL (0.0-0.7) Basophils # (Auto) 0.1 x10^3/uL (0.0-0.2) Sodium Level 139 mmol/L (136-145) Potassium Level 3.0 mmol/L (3.5-5.1) Chloride Level 101 mmol/L (98-107) Carbon Dioxide Level 28 mmol/L (21-32) Anion Gap 10 (6-14) Blood Urea Nitrogen 10 mg/dL (7-20) Creatinine 1.6 mg/dL (0.6-1.0) Estimated GFR (Cockcroft-Gault) 31.8 Glucose Level 95 mg/dL (70-99) Calcium Level 8.9 mg/dL (8.5-10.1) Microbiology 07/28/18 Blood Culture - Preliminary, Resulted NO GROWTH AFTER 3 DAYS 07/14/18 Urine Culture - Final, Complete 07/14/18 Urine Culture Result 1 (MARYANN) - Final, Complete Medications Current Medications Piperacillin Sod/ Tazobactam Sod 4.5 gm/Sodium Chloride 100 ml @ 200 mls/hr 1X ONCE IV Last administered on 07/14/18at 15:58; Start 07/14/18 at 15:00; Stop 07/14/18 at 15:29; Status DC Vancomycin HCl (Vanco Per Pharmacy) 1 each PRN DAILY PRN MC SEE COMMENTS Last administered on 07/31/18at 14:32; Start 07/14/18 at 14:45 Vancomycin HCl 1.25 gm/Sodium Chloride 250 ml @ 166.667 mls/hr 1X ONCE IV Last administered on 07/14/18at 18:10; Start 07/14/18 at 15:00; Stop 07/14/18 at 16:29; Status DC Ondansetron HCl (Zofran) 4 mg PRN Q8HRS PRN IV NAUSEA/VOMITING; Start 07/14/18 at 17:15; Stop 07/15/18 at 17:14; Status DC Morphine Sulfate (Morphine Sulfate) 2 mg PRN Q2HR PRN IV PAIN; Start 07/14/18 at 17:15; Stop 07/15/18 at 17:14; Status DC Acetaminophen (Tylenol) 650 mg PRN Q4HRS PRN PO FEVER; Start 07/14/18 at 17:15 ; Stop 07/15/18 at 17:14; Status DC Vancomycin HCl (Vancomycin Random Level) 1 each 1X ONCE MC ; Start 07/15/18 at 06:00; Stop 07/15/18 at 06:01; Status DC Vitamin B Complex/ Vitamin C (Dinorah-Ralph) 1 tab QPM PO Last administered on 17:21; Start 07/15/18 at 18:00 Megestrol Acetate (Megace) 40 mg BID PO Last administered on 07/31/18 12:17; Start 07/15/18 at 09:00 Mirtazapine (Remeron) 15 mg QHS PO Last administered on 07/30/18 20:21; Start 07/14/18 at 22:00 Non-Formulary Medication (Mirtazapine ) 1 tab QHS PO ; Start 07/15/18 at 21:00; Status UNV Ropinirole HCl (Requip) 3 mg BID PO Last administered on 07/16/18 18:21; Start 07/14/18 at 22:00; Stop 07/16/18 at 19:54; Status DC Sertraline HCl (Zoloft) 100 mg DAILY PO Last administered on 07/31/18 12:17; Start 07/15/18 at 09:00 Phytonadione (Mephyton Oral Soln) 5 mg 1X ONCE PO Last administered on 22:14; Start 07/14/18 at 22:00; Stop 07/14/18 at 22:01; Status DC Vitamin B Complex (Folbic Tablet) 1 tab DAILY PO Last administered on 07/31/18 12:15; Start 07/15/18 at 09:00 Albuterol/ Ipratropium (Duoneb) 3 ml RTBID NEB Last administered on 07/31/18 07 :07; Start 07/15/18 at 08:00 Sodium Chloride 1,000 ml @ 1,000 mls/hr Q1H PRN IV hypotension; Start 07/15/18 at 10:48; Stop 07/15/18 at 16:47; Status DC Albumin Human 200 ml @ 200 mls/hr 1X PRN PRN IV Hypotension; Start 07/15/18 at 11:00; Stop 07/15/18 at 16:59; Status DC Sodium Chloride 1,000 ml @ 400 mls/hr Q2H30M PRN IV PATENCY; Start 07/15/18 at 10:48; Stop 07/15/18 at 22:47; Status DC Info (PHARMACY MONITORING -- do not chart) 1 each PRN DAILY PRN MC SEE COMMENTS ; Start 07/15/18 at 11:00; Status UNV Info (PHARMACY MONITORING -- do not chart) 1 each PRN DAILY PRN MC SEE COMMENTS ; Start 07/15/18 at 11:00; Stop 07/22/18 at 14:31; Status DC Vancomycin HCl 500 mg/Sodium Chloride 100 ml @ 100 mls/hr QTUTHSA IV Last administered on 07/17/18at 16:44; Start 07/17/18 at 16:00; Stop 07/18/18 at 15:41 ; Status DC Lactobacillus Rhamnosus (Culturelle) 1 cap BID PO Last administered on 12:17; Start 07/16/18 at 21:00 Clotrimazole (Mycelex) 10 mg 5XDAY MM Last administered on 07/28/18 05:48; Start 07/16/18 at 14:00; Stop 07/28/18 at 14:13; Status DC Ropinirole HCl (Requip) 3 mg DAILY PO Last administered on 07/31/18 12:15; Start 07/17/18 at 09:00 Ropinirole HCl (Requip) 2 mg QHS PO Last administered on 07/30/18 20:21; Start 07/16/18 at 21:00 Ropinirole HCl (Requip) 1 mg PRN QEVNG PRN PO RLS Last administered on 17:46; Start 07/16/18 at 20:00 Vancomycin HCl (Vancomycin Oral Solution) 125 mg Q6HRS PO Last administered on 07/31/18 16:57; Start 07/17/18 at 00:00 Sodium Chloride 1,000 ml @ 1,000 mls/hr Q1H PRN IV hypotension; Start 07/17/18 at 14:55; Stop 07/17/18 at 20:54; Status DC Sodium Chloride 1,000 ml @ 400 mls/hr Q2H30M PRN IV PATENCY; Start 07/17/18 at 14:55; Stop 07/18/18 at 02:54; Status DC Info (PHARMACY MONITORING -- do not chart) 1 each PRN DAILY PRN MC SEE COMMENTS ; Start 07/17/18 at 15:00; Stop 07/17/18 at 15:00; Status DC Info (PHARMACY MONITORING -- do not chart) 1 each PRN DAILY PRN MC SEE COMMENTS ; Start 07/17/18 at 15:00; Stop 07/17/18 at 15:00; Status DC Sodium Chloride 1,000 ml @ 1,000 mls/hr Q1H PRN IV hypotension; Start 07/18/18 at 11:30; Stop 07/18/18 at 17:29; Status DC Sodium Chloride 1,000 ml @ 400 mls/hr Q2H30M PRN IV PATENCY; Start 07/18/18 at 11:30; Stop 07/18/18 at 23:29; Status DC Info (PHARMACY MONITORING -- do not chart) 1 each PRN DAILY PRN MC SEE COMMENTS ; Start 07/18/18 at 12:30; Status UNV Info (PHARMACY MONITORING -- do not chart) 1 each PRN DAILY PRN MC SEE COMMENTS ; Start 07/18/18 at 12:30; Status UNV Vancomycin HCl 500 mg/Sodium Chloride 100 ml @ 100 mls/hr 1X ONCE IV Last administered on 07/18/18at 16:40; Start 07/18/18 at 16:00; Stop 07/18/18 at 16:59 ; Status DC Amino Acids/ Glycerin/ Electrolytes 1,000 ml @ 80 mls/hr [id number] IV Last administered on 07/31/18at 00:32; Start 07/19/18 at 11:45 Potassium Chloride (Klor-Con) 40 meq AFTRNOON PO Last administered on 07/31/18at 13:00; Start 07/19/18 at 13:00 Vancomycin HCl 500 mg/Sodium Chloride 100 ml @ 100 mls/hr 1X ONCE IV ; Start 07/21/18 at 16:00; Stop 07/21/18 at 16:59; Status Cancel Acetaminophen/ Hydrocodone Bitart (Lortab 5/325) 1 tab PRN Q6HRS PRN PO SEVERE PAIN; Start 07/19/18 at 20:00 Sodium Chloride 1,000 ml @ 1,000 mls/hr Q1H PRN IV hypotension; Start 07/21/18 at 12:29; Stop 07/21/18 at 18:28; Status DC Sodium Chloride (Normal Saline Flush) 10 ml 1X PRN PRN IV AP catheter pack; Start 07/21/18 at 12:30; Stop 07/22/18 at 12:29; Status DC Sodium Chloride (Normal Saline Flush) 10 ml 1X PRN PRN IV WEB ENGINEER catheter pack; Start 07/21/18 at 12:30; Stop 07/22/18 at 12:29; Status DC Sodium Chloride 1,000 ml @ 400 mls/hr Q2H30M PRN IV PATENCY; Start 07/21/18 at 12:29; Stop 07/22/18 at 00:28; Status DC Info (PHARMACY MONITORING -- do not chart) 1 each PRN DAILY PRN MC SEE COMMENTS ; Start 07/21/18 at 12:30; Status UNV Info (PHARMACY MONITORING -- do not chart) 1 each PRN DAILY PRN MC SEE COMMENTS ; Start 07/21/18 at 12:30; Status Cancel Vancomycin HCl 750 mg/Sodium Chloride 250 ml @ 250 mls/hr 1X ONCE IV ; Start 07/21/18 at 16:00; Stop 07/21/18 at 16:59; Status Cancel Vancomycin HCl 500 mg/Sodium Chloride 100 ml @ 100 mls/hr 1X ONCE IV Last administered on 07/21/18at 21:35; Start 07/21/18 at 18:30; Stop 07/21/18 at 19:29 ; Status DC Lidocaine/ Epinephrine (LIDOCAINE 1%-EPI 1:100,000 Multi-Dose) 20 ml STK-MED ONCE .ROUTE ; Start 07/22/18 at 11:46; Stop 07/22/18 at 11:47; Status DC Cefazolin Sodium 50 ml @ As Directed STK-MED ONCE IV ; Start 07/22/18 at 12:45; Stop 07/22/18 at 12:46; Status DC Midazolam HCl (Versed) 2 mg STK-MED ONCE .ROUTE ; Start 07/22/18 at 12:45; Stop 07/22/18 at 12:46; Status DC Fentanyl Citrate (Fentanyl 2ml Vial) 100 mcg STK-MED ONCE .ROUTE ; Start at 12:45; Stop 07/22/18 at 12:46; Status DC Vancomycin HCl 500 mg/Sodium Chloride 100 ml @ 100 mls/hr QTUTHSA IV Last administered on 07/24/18at 18:27; Start 07/22/18 at 16:00; Stop 07/26/18 at 14:45 ; Status DC Midazolam HCl (Versed) 2 mg 1X ONCE IV Last administered on 07/22/18at 13:28; Start 07/22/18 at 13:30; Stop 07/22/18 at 13:31; Status DC Fentanyl Citrate (Fentanyl 2ml Vial) 100 mcg 1X ONCE IV Last administered on at 13:27; Start 07/22/18 at 13:30; Stop 07/22/18 at 13:31; Status DC Lidocaine HCl (Lidocaine 1% 20ml Vial) 20 ml 1X ONCE INJ Last administered on 07/22/18at 13:27; Start 07/22/18 at 13:30; Stop 07/22/18 at 13:31; Status DC Ceftaroline Fosamil 400 mg/ Sodium Chloride 250 ml @ 250 mls/hr Q12HR IV Last administered on 07/31/18at 12:14; Start 07/22/18 at 14:00 Darbepoetin Avery (Aranesp) 60 mcg [id number] SQ Last administered on 07/29/18at 20: 23; Start 07/22/18 at 21:00 Sodium Chloride 1,000 ml @ 1,000 mls/hr Q1H PRN IV hypotension; Start 07/22/18 at 15:20; Stop 07/22/18 at 21:19; Status DC Albumin Human 200 ml @ 200 mls/hr 1X PRN PRN IV Hypotension; Start 07/22/18 at 15:30; Stop 07/22/18 at 21:29; Status DC Acetaminophen (Tylenol) 500 mg 1X PRN PRN PO MILD PAIN / TEMP; Start 07/22/18 at 15:30; Stop 07/23/18 at 15:29; Status DC Diphenhydramine HCl (Benadryl) 25 mg 1X PRN PRN IV ITCHING; Start 07/22/18 at 15:30; Stop 07/23/18 at 15:29; Status DC Diphenhydramine HCl (Benadryl) 25 mg 1X PRN PRN IV ITCHING; Start 07/22/18 at 15:30; Stop 07/23/18 at 15:29; Status DC Sodium Chloride (Normal Saline Flush) 10 ml 1X PRN PRN IV AP catheter pack; Start 07/22/18 at 15:30; Stop 07/23/18 at 15:29; Status DC Sodium Chloride (Normal Saline Flush) 10 ml 1X PRN PRN IV WEB ENGINEER catheter pack; Start 07/22/18 at 15:30; Stop 07/23/18 at 15:29; Status DC Sodium Chloride 1,000 ml @ 400 mls/hr Q2H30M PRN IV PATENCY; Start 07/22/18 at 15:20; Stop 07/23/18 at 03:19; Status DC Info (PHARMACY MONITORING -- do not chart) 1 each PRN DAILY PRN MC SEE COMMENTS ; Start 07/22/18 at 15:30; Stop 07/22/18 at 15:30; Status DC Sodium Chloride 1,000 ml @ 1,000 mls/hr Q1H PRN IV hypotension; Start 07/23/18 at 07:00; Stop 07/23/18 at 12:59; Status DC Sodium Chloride 1,000 ml @ 400 mls/hr Q2H30M PRN IV PATENCY; Start 07/23/18 at 07:00; Stop 07/23/18 at 18:59; Status DC Info (PHARMACY MONITORING -- do not chart) 1 each PRN DAILY PRN MC SEE COMMENTS ; Start 07/23/18 at 09:00; Status UNV Info (PHARMACY MONITORING -- do not chart) 1 each PRN DAILY PRN MC SEE COMMENTS ; Start 07/23/18 at 09:00 Labetalol HCl (Normodyne Iv Push) 10 mg PRN Q2HR PRN IVP HYPERTENSION, SEE COMMENTS; Start 07/23/18 at 09:30 Acetaminophen (Tylenol) 500 mg PRN Q6HRS PRN PO MILD PAIN / TEMP; Start at 09:30 Ondansetron HCl (Zofran) 4 mg PRN Q6HRS PRN IV NAUSEA/VOMITING Last administered on 07/26/18 16:17; Start 07/23/18 at 09:30 Ondansetron HCl (Zofran Odt) 4 mg PRN Q6HRS PRN PO NAUSEA/VOMITING Last administered on 07/26/18 16:12; Start 07/23/18 at 09:30 Tramadol HCl (Ultram) 50 mg PRN Q6HRS PRN PO MODERATE PAIN; Start 07/23/18 at 09:30 Amlodipine Besylate (Norvasc) 10 mg DAILY PO Last administered on 07/31/18at 12: 16; Start 07/23/18 at 09:00 Ondansetron HCl (Zofran) 4 mg PRN Q6HRS PRN IV NAUSEA/VOMITING; Start 07/24/18 at 07:00; Stop 07/25/18 at 06:59; Status DC Fentanyl Citrate (Fentanyl 2ml Vial) 25 mcg PRN Q5MIN PRN IV MILD PAIN; Start 07/24/18 at 07:00; Stop 07/25/18 at 06:59; Status DC Fentanyl Citrate (Fentanyl 2ml Vial) 50 mcg PRN Q5MIN PRN IV MODERATE TO SEVERE PAIN; Start 07/24/18 at 07:00; Stop 07/25/18 at 06:59; Status DC Ringer's Solution 1,000 ml @ 30 mls/hr Q24H IV ; Start 07/24/18 at 07:00; Stop 07/24/18 at 18:59; Status DC Lidocaine HCl (Xylocaine-Mpf 1% 2ml Vial) 2 ml PRN 1X PRN ID PRIOR TO IV START ; Start 07/24/18 at 07:00; Stop 07/25/18 at 06:59; Status DC Prochlorperazine Edisylate (Compazine) 5 mg PACU PRN PRN IV NAUSEA, MRX1; Start 07/24/18 at 07:00; Stop 07/25/18 at 06:59; Status DC Vancomycin HCl 500 mg/Sodium Chloride 100 ml @ 100 mls/hr ONCE ONCE IV Last administered on 07/23/18at 17:23; Start 07/23/18 at 16:00; Stop 07/23/18 at 16:59 ; Status DC Nystatin (Mycostatin) 1 rolly BID TP Last administered on 07/30/18at 20:21; Start 07/23/18 at 21:00 Benzocaine (Hurricaine One) 1 spray STK-MED ONCE .ROUTE ; Start 07/24/18 at 11: 49; Stop 07/24/18 at 11:50; Status Cancel Lidocaine HCl (Viscous Lidocaine) 15 ml STK-MED ONCE .ROUTE ; Start 07/24/18 at 11:49; Stop 07/24/18 at 11:50; Status DC Lidocaine HCl (Xylocaine 2% Topical 5gm Tube) 1 rolly 1X ONCE TP ; Start at 12:00; Stop 07/24/18 at 12:01; Status DC Lidocaine HCl (Viscous Lidocaine) 15 ml 1X ONCE SWSW Last administered on 07/24at 13:12; Start 07/24/18 at 12:00; Stop 07/24/18 at 12:01; Status DC Benzocaine (Hurricaine One) 3 spray 1X ONCE MM Last administered on 07/24/18at 13:11; Start 07/24/18 at 12:00; Stop 07/24/18 at 12:01; Status DC Lidocaine HCl (Glydo (Lidocaine) Jelly) 1 rolly 1X ONCE MM Last administered on 07/24/18at 13:10; Start 07/24/18 at 12:00; Stop 07/24/18 at 12:01; Status DC Sodium Chloride 1,000 ml @ 1,000 mls/hr Q1H PRN IV hypotension; Start 07/24/18 at 13:36; Stop 07/24/18 at 19:35; Status DC Albumin Human 200 ml @ 200 mls/hr 1X PRN PRN IV Hypotension; Start 07/24/18 at 13:45; Stop 07/24/18 at 19:44; Status DC Acetaminophen (Tylenol) 500 mg 1X PRN PRN PO MILD PAIN / TEMP; Start 07/24/18 at 13:45; Stop 07/25/18 at 13:44; Status DC Diphenhydramine HCl (Benadryl) 25 mg 1X PRN PRN IV ITCHING; Start 07/24/18 at 13:45; Stop 07/25/18 at 13:44; Status DC Diphenhydramine HCl (Benadryl) 25 mg 1X PRN PRN IV ITCHING; Start 07/24/18 at 13:45; Stop 07/25/18 at 13:44; Status DC Sodium Chloride (Normal Saline Flush) 10 ml 1X PRN PRN IV AP catheter pack; Start 07/24/18 at 13:45; Stop 07/25/18 at 13:44; Status DC Sodium Chloride (Normal Saline Flush) 10 ml 1X PRN PRN IV WEB ENGINEER catheter pack; Start 07/24/18 at 13:45; Stop 07/25/18 at 13:44; Status DC Sodium Chloride 1,000 ml @ 400 mls/hr Q2H30M PRN IV PATENCY; Start 07/24/18 at 13:36; Stop 07/25/18 at 01:35; Status DC Info (PHARMACY MONITORING -- do not chart) 1 each PRN DAILY PRN MC SEE COMMENTS ; Start 07/24/18 at 13:45; Stop 07/24/18 at 13:45; Status DC Propofol (Diprivan) 200 mg STK-MED ONCE IV ; Start 07/24/18 at 13:00; Stop at 08:16; Status DC Loperamide HCl (Imodium) 2 mg 1X ONCE PO Last administered on 07/25/18at 12:47; Start 07/25/18 at 11:15; Stop 07/25/18 at 11:16; Status DC Vancomycin HCl 500 mg/Sodium Chloride 100 ml @ 100 mls/hr QTUTHSA IV ; Start at 16:00; Stop 07/29/18 at 16:00; Status DC Vancomycin HCl (Vancomycin Random Level) 1 each 1X ONCE MC Last administered on 07/27/18at 06:00; Start 07/27/18 at 06:00; Stop 07/27/18 at 06:02; Status DC Simethicone (Gas-X) 80 mg PRN AFTMEALHC PRN PO GAS / BLOATING Last administered on 07/26/18at 16:12; Start 07/26/18 at 15:45 Lidocaine/ Epinephrine (LIDOCAINE 1%-EPI 1:100,000 Multi-Dose) 20 ml STK-MED ONCE .ROUTE ; Start 07/28/18 at 10:36; Stop 07/28/18 at 10:37; Status DC Heparin Sodium (Porcine) (Heparin Sodium) 10,000 unit STK-MED ONCE .ROUTE ; Start 07/28/18 at 10:38; Stop 07/28/18 at 10:39; Status DC Heparin Sodium/ Sodium Chloride 0 ml @ As Directed STK-MED ONCE .ROUTE ; Start 07/28/18 at 10:39; Stop 07/28/18 at 10:40; Status DC Sodium Chloride 1,000 ml @ 1,000 mls/hr Q1H PRN IV hypotension; Start 07/28/18 at 12:54; Stop 07/28/18 at 18:53; Status DC Sodium Chloride (Normal Saline Flush) 10 ml 1X PRN PRN IV AP catheter pack; Start 07/28/18 at 13:00; Stop 07/29/18 at 12:59; Status DC Sodium Chloride (Normal Saline Flush) 10 ml 1X PRN PRN IV WEB ENGINEER catheter pack; Start 07/28/18 at 13:00; Stop 07/29/18 at 12:59; Status DC Info (PHARMACY MONITORING -- do not chart) 1 each PRN DAILY PRN MC SEE COMMENTS ; Start 07/28/18 at 13:00; Status UNV Info (PHARMACY MONITORING -- do not chart) 1 each PRN DAILY PRN MC SEE COMMENTS ; Start 07/28/18 at 13:00; Stop 07/29/18 at 07:20; Status DC Vancomycin HCl 500 mg/Sodium Chloride 100 ml @ 100 mls/hr QMWF IV Last administered on 07/30/18at 16:11; Start 07/28/18 at 16:00; Stop 07/31/18 at 14:28; Status DC Sodium Chloride 1,000 ml @ 1,000 mls/hr Q1H PRN IV hypotension; Start 07/29/18 at 07:02; Stop 07/29/18 at 13:01; Status DC Albumin Human 200 ml @ 200 mls/hr 1X PRN PRN IV Hypotension; Start 07/29/18 at 07:15; Stop 07/29/18 at 13:14; Status DC Acetaminophen (Tylenol) 500 mg 1X PRN PRN PO MILD PAIN / TEMP; Start 07/29/18 at 07:15; Stop 07/30/18 at 07:14; Status DC Diphenhydramine HCl (Benadryl) 25 mg 1X PRN PRN IV ITCHING; Start 07/29/18 at 07 :15; Stop 07/30/18 at 07:14; Status DC Diphenhydramine HCl (Benadryl) 25 mg 1X PRN PRN IV ITCHING; Start 07/29/18 at 07 :15; Stop 07/30/18 at 07:14; Status DC Sodium Chloride 1,000 ml @ 400 mls/hr Q2H30M PRN IV PATENCY; Start 07/29/18 at 07:02; Stop 07/29/18 at 19:01; Status DC Info (PHARMACY MONITORING -- do not chart) 1 each PRN DAILY PRN MC SEE COMMENTS ; Start 07/29/18 at 07:15; Stop 07/29/18 at 07:19; Status DC Sodium Chloride 1,000 ml @ 1,000 mls/hr Q1H PRN IV hypotension; Start 07/31/18 at 08:36; Stop 07/31/18 at 14:35; Status DC Sodium Chloride 1,000 ml @ 400 mls/hr Q2H30M PRN IV PATENCY; Start 07/31/18 at 08:36; Stop 07/31/18 at 20:35 Info (PHARMACY MONITORING -- do not chart) 1 each PRN DAILY PRN MC SEE COMMENTS ; Start 07/31/18 at 08:45; Status UNV Vancomycin HCl 500 mg/Sodium Chloride 100 ml @ 100 mls/hr QTUTHSA IV Last administered on 07/31/18at 16:58; Start 07/31/18 at 16:00 Vancomycin HCl (Vancomycin Random Level) 1 each 1X ONCE MC ; Start 08/02/18 at 05:00; Stop 08/02/18 at 05:01 Active Scripts Active Reported Dialyvite Tablet (Folic Acid/Vitamin B Comp W-C) 1 Each Tablet 1 Each PO QPM QPM @ 1900 [hectorol] QTUTHSA [epogen] QTUTHSA Mirtazapine 15 Mg Tablet 1 Tab PO QHS Zoloft (Sertraline Hcl) 100 Mg Tablet 1 Tab PO DAILY Requip (Ropinirole Hcl) 1 Mg Tablet 3 Mg PO BID Mirtazapine 15 Mg Tablet 1 Tab PO QHS Megestrol Acetate 40 Mg Tablet 40 Mg PO BID Vitals/I & O Vital Sign - Last 24 Hours 07/30/18 07/30/18 07/30/18 07/30/18 19:00 19:00 19:33 19:57 Temp 98.9 98.9 98.9 98.9 Pulse 71 71 Resp 20 20 B/P (MAP) 141/59 (86) 141/59 (86) Pulse Ox 97 97 98 O2 Delivery Room Air Room Air Room Air 07/30/18 07/31/18 07/31/18 07/31/18 23:00 03:00 07:00 07:08 Temp 98.1 97.7 98.1 98.1 97.7 98.1 Pulse 121 83 69 Resp 20 20 18 B/P (MAP) 133/61 (85) 92/41 (58) 156/72 (100) Pulse Ox 97 96 98 96 O2 Delivery Room Air Room Air Room Air 07/31/18 07/31/18 07/31/18 11:00 12:16 15:00 Temp 98.5 98.5 Pulse 69 63 Resp 18 B/P (MAP) 156/72 147/57 (87) Pulse Ox 97 O2 Delivery Room Air Intake and Output 07/30/18 07/30/18 07/31/18 15:00 23:00 07:00 Intake Total 470 ml 1100 ml Balance 470 ml 1100 ml Nutrition Consultation Dietary Evaluation: Recommendations by RD: PPN/TPN, Add supplement feedings Comments: day 13 PPN - REC d/c continue Diet per QUALITY ASSURANCE ADVISOR, renal and encourage intake of renal suppelements pt to d/c today Expected Outcomes/Goals: po intake to improve to 50% of meals- goal ongoing Interpretation of weight loss: >1-2% in 1 week Malnutrition Findings: Food and Nutrition Intake (Sev: <50% est energy req 5days Body Fat Depletion (Non Severe: Mod to Severe Weight Status: Underweight TESS BOURNE MD Jul 31, 2018 18:34
[2018-07-31 19:00] VITALS: BP 147/57
[2018-07-31] MEDS: MIRTAZAPINE 15 MG TABLET PO SCH (20:34)
[2018-07-31 22:57] VITALS: BP 131/58
[2018-08-01] MEDS: VANCOMYCIN 125 MG/2.5 ML ORAL SOLUTION. PO SCH ×4 (00:36→18:41)
[2018-08-01] MEDS: AMINO AC 3%/ELECTROLYTE/GLYCER 1,000 ML IV SCH ×2 (00:36→14:12)
[2018-08-01 03:00] VITALS: BP 161/80
[2018-08-01 07:00] VITALS: BP 150/81
[2018-08-01] MEDS: IPRATRPIUM/ALBUTEROL 0.5/2.5MG 3 ML NEBU. NEB SCH ×2 (08:00→20:00)
[2018-08-01] MEDS: NYSTATIN 100,000 UNIT/GM TOPICAL CREAM 15GM TUBE. TP SCH ×2 (09:00→21:14)
--- NOTE | 2018-08-01 09:10 | PDOC ---
Infectious Disease Note Subjective: Subjective Pt is ok no n/v some occ loose bm po intake remains poor pt is deciding for peg tube vs palliative care ROS: ROS Negative except for above. Vital Signs: Vital Signs Vital Signs Date Time Temp Pulse Resp B/P (MAP) Pulse Ox O2 Delivery O2 Flow Rate FiO2 08/01/18 07:00 98.4 83 20 150/81 (104) 95 Room Air 98.4 08/01/18 03:00 4.0 Physical Exam: PHYSICAL EXAM GENERAL: Lying down, weak appearing sad affect HEENT: Pupils are equal and reactive, with normal conjunctivae. + dentures NECK: Supple. LUNGS: Clear to auscultation. HEART: S1, S2. ABDOMEN: Soft and nontender. No guarding or rebound. EXTREMITIES: No clubbing, cyanosis or gross edema. SKIN: Warm to touch, no signs of rash. NEUROLOGIC: Arouses to voice, quiet Right chest hemodialysis catheter - clean Medications: Inpatient Meds: Current Medications Medications (Trade) Dose Ordered Sig/Jaswinder Start Time Stop Time Status Last Admin Dose Admin Acetaminophen (Tylenol) 500 mg 1X PRN PRN 07/29/18 07:15 07/30/18 07:14 DC Acetaminophen/ Hydrocodone Bitart (Lortab 5/325) 1 tab PRN Q6HRS PRN 07/19/18 20:00 Albumin Human 200 ml @ 200 mls/hr 1X PRN PRN 07/29/18 07:15 07/29/18 13:14 DC Albuterol/ Ipratropium (Duoneb) 3 ml RTBID 07/15/18 08:00 07/31/18 21:08 3 ML Amino Acids/ Glycerin/ Electrolytes 1,000 ml @ 80 mls/hr [id number] 07/19/18 11:45 08/01/18 00:36 80 MLS/HR Amlodipine Besylate (Norvasc) 10 mg DAILY 07/23/18 09:00 07/31/18 12:16 10 MG Benzocaine (Hurricaine One) 3 spray 1X ONCE 07/24/18 12:00 07/24/18 12:01 DC 07/24/18 13:11 2 SPRAY Cefazolin Sodium 50 ml @ As Directed STK-MED ONCE 07/22/18 12:45 07/22/18 12:46 DC Ceftaroline Fosamil 400 mg/ Sodium Chloride 250 ml @ 250 mls/hr Q12HR 07/22/18 14:00 07/31/18 20:34 250 MLS/HR Clotrimazole (Mycelex) 10 mg 5XDAY 07/16/18 14:00 07/28/18 14:13 DC 07/28/18 05:48 10 MG Darbepoetin Avery (Aranesp) 60 mcg WEEKLYHS 07/22/18 21:00 07/29/18 20:23 60 MCG Diphenhydramine HCl (Benadryl) 25 mg 1X PRN PRN 07/29/18 07:15 07/30/18 07:14 DC Fentanyl Citrate (Fentanyl 2ml Vial) 50 mcg PRN Q5MIN PRN 07/24/18 07:00 07/25/18 06:59 DC Heparin Sodium (Porcine) (Heparin Sodium) 10,000 unit STK-MED ONCE 07/28/18 10:38 07/28/18 10:39 DC Heparin Sodium/ Sodium Chloride 0 ml @ As Directed STK-MED ONCE 07/28/18 10:39 07/28/18 10:40 DC Info (PHARMACY MONITORING -- do not chart) 1 each PRN DAILY PRN 07/31/18 08:45 UNV Labetalol HCl (Normodyne Iv Push) 10 mg PRN Q2HR PRN 07/23/18 09:30 Lactobacillus Rhamnosus (Culturelle) 1 cap BID 07/16/18 21:00 07/31/18 20:34 1 CAP Lidocaine HCl (Glydo (Lidocaine) Jelly) 1 rolly 1X ONCE 07/24/18 12:00 07/24/18 12:01 DC 07/24/18 13:10 1 ROLLY Lidocaine HCl (Lidocaine 1% 20ml Vial) 20 ml 1X ONCE 07/22/18 13:30 07/22/18 13:31 DC 07/22/18 13:27 9 ML Lidocaine HCl (Viscous Lidocaine) 15 ml 1X ONCE 07/24/18 12:00 07/24/18 12:01 DC 07/24/18 13:12 15 ML Lidocaine HCl (Xylocaine 2% Topical 5gm Tube) 1 rolly 1X ONCE 07/24/18 12:00 07/24/18 12:01 DC Lidocaine HCl (Xylocaine-Mpf 1% 2ml Vial) 2 ml PRN 1X PRN 07/24/18 07:00 07/25/18 06:59 DC Lidocaine/ Epinephrine (LIDOCAINE 1%-EPI 1:100,000 Multi-Dose) 20 ml STK-MED ONCE 07/28/18 10:36 07/28/18 10:37 DC Loperamide HCl (Imodium) 2 mg 1X ONCE 07/25/18 11:15 07/25/18 11:16 DC 07/25/18 12:47 2 MG Megestrol Acetate (Megace) 40 mg BID 07/15/18 09:00 07/31/18 20:34 40 MG Midazolam HCl (Versed) 2 mg 1X ONCE 07/22/18 13:30 07/22/18 13:31 DC 07/22/18 13:28 0.5 MG Mirtazapine (Remeron) 15 mg QHS 07/14/18 22:00 07/31/18 20:34 15 MG Morphine Sulfate (Morphine Sulfate) 2 mg PRN Q2HR PRN 07/14/18 17:15 07/15/18 17:14 DC Non-Formulary Medication (Mirtazapine ) 1 tab QHS 07/15/18 21:00 UNV Nystatin (Mycostatin) 1 rolly BID 07/23/18 21:00 07/31/18 20:35 1 ROLLY Ondansetron HCl (Zofran Odt) 4 mg PRN Q6HRS PRN 07/23/18 09:30 07/26/18 16:12 4 MG Ondansetron HCl (Zofran) 4 mg PRN Q6HRS PRN 07/24/18 07:00 07/25/18 06:59 DC Phytonadione (Mephyton Oral Soln) 5 mg 1X ONCE 07/14/18 22:00 07/14/18 22:01 DC 07/14/18 22:14 5 MG Piperacillin Sod/ Tazobactam Sod 4.5 gm/Sodium Chloride 100 ml @ 200 mls/hr 1X ONCE 07/14/18 15:00 07/14/18 15:29 DC 07/14/18 15:58 200 MLS/HR Potassium Chloride (Klor-Con) 40 meq AFTRNOON 07/19/18 13:00 07/31/18 13:00 40 MEQ Prochlorperazine Edisylate (Compazine) 5 mg PACU PRN PRN 07/24/18 07:00 07/25/18 06:59 DC Propofol (Diprivan) 200 mg STK-MED ONCE 07/24/18 13:00 07/25/18 08:16 DC Ringer's Solution 1,000 ml @ 30 mls/hr Q24H 07/24/18 07:00 07/24/18 18:59 DC Ropinirole HCl (Requip) 1 mg PRN QEVNG PRN 07/16/18 20:00 07/26/18 17:46 1 MG Sertraline HCl (Zoloft) 100 mg DAILY 07/15/18 09:00 07/31/18 12:17 100 MG Simethicone (Gas-X) 80 mg PRN AFTMEALHC PRN 07/26/18 15:45 07/26/18 16:12 80 MG Sodium Chloride 1,000 ml @ 400 mls/hr Q2H30M PRN 07/31/18 08:36 07/31/18 20:35 DC Sodium Chloride (Normal Saline Flush) 10 ml 1X PRN PRN 07/28/18 13:00 07/29/18 12:59 DC Tramadol HCl (Ultram) 50 mg PRN Q6HRS PRN 07/23/18 09:30 Vancomycin HCl (Vanco Per Pharmacy) 1 each PRN DAILY PRN 07/14/18 14:45 07/31/18 14:32 1 EACH Vancomycin HCl (Vancomycin Random Level) 1 each 1X ONCE 08/02/18 05:00 08/02/18 05:01 Vancomycin HCl (Vancomycin Oral Solution) 125 mg Q6HRS 07/17/18 00:00 08/01/18 06:32 125 MG Vancomycin HCl 1.25 gm/Sodium Chloride 250 ml @ 166.667 mls/hr 1X ONCE 07/14/18 15:00 07/14/18 16:29 DC 07/14/18 18:10 166.667 MLS/HR Vancomycin HCl 500 mg/Sodium Chloride 100 ml @ 100 mls/hr QTUTHSA 07/31/18 16:00 07/31/18 16:58 100 MLS/HR Vancomycin HCl 750 mg/Sodium Chloride 250 ml @ 250 mls/hr 1X ONCE 07/21/18 16:00 07/21/18 16:59 Cancel Vitamin B Complex (Folbic Tablet) 1 tab DAILY 07/15/18 09:00 07/31/18 12:15 1 TAB Vitamin B Complex/ Vitamin C (Dinorah-Ralph) 1 tab QPM 07/15/18 18:00 07/31/18 17:21 1 TAB Labs: Micro BC neg from 07/24 and 07/28 Objective: Assessment: 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 -s/p tunneled HDC line removal on 07/18. s/p replacement 07/23 , C. difficile from 07/16 positive Thrush - better Anemia - S/p PRBCs Leukocytosis CKD on HD Severe Protein malnutrition Failure to thrive. Plan: Plan of Care Cont po/IV Vanc postdialysis IV Ceftaroline Probiotics f/u cultures Duration of treatment will depend on goals of treatment pt is awaiting discussion with nephew D/W GIANFRANCO LION MD Aug 01, 2018 09:10
[2018-08-01] MEDS: MEGESTROL 20 MG TABLET. PO SCH ×2 (09:45→21:12)
[2018-08-01] MEDS: VITAMIN B12,B9,B6 COMPLEX 1 TABLET. PO SCH (09:45)
[2018-08-01] MEDS: LACTOBACILLUS RHAMNOSUS GG 1 CAPSULE. PO SCH ×2 (09:45→21:13)
[2018-08-01] MEDS: SERTRALINE 50 MG TABLET. PO SCH (09:46)
[2018-08-01] MEDS: amLODIPine BESYLATE 10 MG TABLET PO SCH (09:46)
[2018-08-01] MEDS: rOPINIRole 1 MG TABLET. PO SCH ×3 (09:46→21:13)
[2018-08-01 11:04] VITALS: BP 131/71
--- NOTE | 2018-08-01 13:18 | NUR ---
DANIELE following. Discussed with RN, pt was given the choice of what types of feeding she would like out of Picc, dobhoff or tube. Pt chose to have TPN through picc line. DANIELE faxed referral to [facility] (ph:[phone] fax: [phone]) advising of TPN. DANIELE will continue to follow. RN notified.
--- NOTE | 2018-08-01 14:00 | PDOC ---
PROGRESS NOTES Chief Complaint Chief Complaint Staph bacteremia with severe risk of complications 2D echo neg vegetation; on 07/24 RAMON showed HD catheter w/ large mobile vegetation or thrombus (measuring at least 2.5 x 1.1 cm) extending into the RA. -s/p tunneled HDC line removal on 07/18. s/p replacement 07/23 C. difficile from 07/16 positive ESRD on dialysis Anemia of ESRD Leukocytosis/sepsis C. difficile diarrhea improved DNR Hyponatremia secondary to low effective circulatory volume resolved Hypokalemia replacing as per nephrology Vascular dementia HTN Anxiety Depression noncompliance with PT/OT Severe protein calorie malnutrition due to poor oral intake Severe deconditioning that will require placement PLAN: Cont vanc iv and oral HD per renal supportive care encourage as much activity as tolerated follow cultures DNR pt/ot NEW PERMCATH placed on 07/28 patient will need placement, still to make a decision regarding Dobbhoff versus PEG versus TPN option for nutrition History of Present Illness History of Present Illness No fever, WBC resolved Hemoglobin stable status post transfusion. On contact Isol because of bacteremia and C. difficile positivity Palliative note reviewed, patient wishes to continue dialysis 07/25 Earlier entry: 72 yo f w/ PMHx CVA with vascular dementia, HTN, anxiety, depression, end-stage renal disease on dialysis Saturday, Saturday, (new dx 2018), last dialyzed on Saturday who p/w fever, decreased appetite, fever, decreased energy/ weakness, symptoms began 3 days ago. Found with Hb of 5.6 in ED, transfused PRBC to 7.5. She was noted with loose stools as well. She has history dementia but she is alert to person only, but is able to carry on a conversation and give some health history. She does not refuse dialysis every day. She was seen here this past January 2018 and May 2018 and sent home with home health ([facility]). She has a DPOA, Ivy the nephew has been texting who has been informed of hospital admission. 07/15: Seen on dialysis today. She has some chills with this. Notably, lab called about 3/4 bottles positive on blood culture for GPC in clusters. 07/16: Feeling terrible today. Has diarrhea x2 POSITIVE FOR C. DIFFICILE. She has bilateral LQ pain. Started on oral vancomycin and continued on IV Vancomycin 07/17: Still with poor PO intake 07/18: HD catheter pulled. Culture looks like MRSA 07/19: Still not eating, started PPN. Still with repeat blood cultures 1/4 bottles positive 07/21 DECISION FOR PALLIATIVE CARE Needed GRAM POSITIVE COCCI IN CLUSTERS, SUGGESTIVE OF STAPH, IN 4 OF 5 BOTTLES, 3 SETS DRAWN ON 07/20/18. ALL 3 SETS ARE POSITIVE. Still with some loose stools. Positive 2/4 repeat blood cultures after line was pulled. Denies SOB and CP. She does have some catheter site pain where it was pulled. 07/25 NONCOMPLIANT WITH PT/OT, BLOOD CUL PENDING, REPEAT, high risk of complications due to noncompliance per my personal review of chart 07/26 PERMCATH NONFUNCTIONAL. NEW PERMCATH SATURDAY refusing to eat lunch today, bp uncontrolled 07/27 still not eating well, noncompliant 07/28 NOT IMPROVED FAR COMPLIANCE, POOR APPETITE 07/28 Problem List (body system elements) * Impaired fnctnl mobility * Strength * Balance * Knowledge-safe techniques NEEDS SNF 07/29 Patient with no acute events reported overnight, patient with improving appetite, will see how much she is able to eat today and hopefully wean off procalamine. No fever chills diaphoresis reported. 07/30 patient with no acute events reported overnight. Continues to try to eat a little bit more, but still very debilitated. Reassurances been provided her diarrhea is slowly improving 07/31 patient very lethargic after dialysis seems to be her usual norm as per nursing staff, she is not eating much of her meals will readdress her nutritional status once she is more receptive for a conversation. Vitals Vitals Vital Signs Date Time Temp Pulse Resp B/P (MAP) Pulse Ox O2 Delivery O2 Flow Rate FiO2 08/01/18 11:04 98.0 80 20 131/71 (91) 98 Room Air 98.0 08/01/18 03:00 4.0 Physical Exam Physical Exam GENERAL: Lying down, weak appearing sad affect HEENT: Pupils are equal and reactive, with normal conjunctivae. + dentures NECK: Supple. LUNGS: Clear to auscultation. HEART: S1, S2. ABDOMEN: Soft and nontender. No guarding or rebound. EXTREMITIES: No clubbing, cyanosis or gross edema. SKIN: Warm to touch, no signs of rash. NEUROLOGIC: Arouses to voice, quiet Right chest hemodialysis catheter - clean General: Alert, Oriented X3, No acute distress, Other (poorly oriented) Heart: Regular rate, Normal S1 Lungs: Clear Abdomen: Normal bowel sounds, Soft, No tenderness Extremities: No clubbing, No cyanosis, Normal pulses Skin: No rashes, No significant lesion Review of Systems Review of Systems Temporal review of system is negative only pertinent as per history of present illness Assessment and Plan Assessmemt and Plan Problems Medical Problems: (1) End stage renal disease Status: Acute (2) Generalized weakness Status: Acute Comment Review of Relevant I have reviewed the following items linda (where applicable) has been applied. Labs Microbiology 07/28/18 Blood Culture - Preliminary, Resulted NO GROWTH AFTER 3 DAYS 07/14/18 Urine Culture - Final, Complete 07/14/18 Urine Culture Result 1 (MARYANN) - Final, Complete Medications Current Medications Piperacillin Sod/ Tazobactam Sod 4.5 gm/Sodium Chloride 100 ml @ 200 mls/hr 1X ONCE IV Last administered on 07/14/18at 15:58; Start 07/14/18 at 15:00; Stop 07/14/18 at 15:29; Status DC Vancomycin HCl (Vanco Per Pharmacy) 1 each PRN DAILY PRN MC SEE COMMENTS Last administered on 07/31/18at 14:32; Start 07/14/18 at 14:45 Vancomycin HCl 1.25 gm/Sodium Chloride 250 ml @ 166.667 mls/hr 1X ONCE IV Last administered on 07/14/18at 18:10; Start 07/14/18 at 15:00; Stop 07/14/18 at 16:29; Status DC Ondansetron HCl (Zofran) 4 mg PRN Q8HRS PRN IV NAUSEA/VOMITING; Start 07/14/18 at 17:15; Stop 07/15/18 at 17:14; Status DC Morphine Sulfate (Morphine Sulfate) 2 mg PRN Q2HR PRN IV PAIN; Start 07/14/18 at 17:15; Stop 07/15/18 at 17:14; Status DC Acetaminophen (Tylenol) 650 mg PRN Q4HRS PRN PO FEVER; Start 07/14/18 at 17:15 ; Stop 07/15/18 at 17:14; Status DC Vancomycin HCl (Vancomycin Random Level) 1 each 1X ONCE MC ; Start 07/15/18 at 06:00; Stop 07/15/18 at 06:01; Status DC Vitamin B Complex/ Vitamin C (Dinorah-Ralph) 1 tab QPM PO Last administered on 17:21; Start 07/15/18 at 18:00 Megestrol Acetate (Megace) 40 mg BID PO Last administered on 08/01/18 09:45; Start 07/15/18 at 09:00 Mirtazapine (Remeron) 15 mg QHS PO Last administered on 07/31/18 20:34; Start 07/14/18 at 22:00 Non-Formulary Medication (Mirtazapine ) 1 tab QHS PO ; Start 07/15/18 at 21:00; Status UNV Ropinirole HCl (Requip) 3 mg BID PO Last administered on 07/16/18 18:21; Start 07/14/18 at 22:00; Stop 07/16/18 at 19:54; Status DC Sertraline HCl (Zoloft) 100 mg DAILY PO Last administered on 08/01/18 09:46; Start 07/15/18 at 09:00 Phytonadione (Mephyton Oral Soln) 5 mg 1X ONCE PO Last administered on 22:14; Start 07/14/18 at 22:00; Stop 07/14/18 at 22:01; Status DC Vitamin B Complex (Folbic Tablet) 1 tab DAILY PO Last administered on 08/01/18 09:45; Start 07/15/18 at 09:00 Albuterol/ Ipratropium (Duoneb) 3 ml RTBID NEB Last administered on 07/31/18 21 :08; Start 07/15/18 at 08:00 Sodium Chloride 1,000 ml @ 1,000 mls/hr Q1H PRN IV hypotension; Start 07/15/18 at 10:48; Stop 07/15/18 at 16:47; Status DC Albumin Human 200 ml @ 200 mls/hr 1X PRN PRN IV Hypotension; Start 07/15/18 at 11:00; Stop 07/15/18 at 16:59; Status DC Sodium Chloride 1,000 ml @ 400 mls/hr Q2H30M PRN IV PATENCY; Start 07/15/18 at 10:48; Stop 07/15/18 at 22:47; Status DC Info (PHARMACY MONITORING -- do not chart) 1 each PRN DAILY PRN MC SEE COMMENTS ; Start 07/15/18 at 11:00; Status UNV Info (PHARMACY MONITORING -- do not chart) 1 each PRN DAILY PRN MC SEE COMMENTS ; Start 07/15/18 at 11:00; Stop 07/22/18 at 14:31; Status DC Vancomycin HCl 500 mg/Sodium Chloride 100 ml @ 100 mls/hr QTUTHSA IV Last administered on 07/17/18at 16:44; Start 07/17/18 at 16:00; Stop 07/18/18 at 15:41 ; Status DC Lactobacillus Rhamnosus (Culturelle) 1 cap BID PO Last administered on 09:45; Start 07/16/18 at 21:00 Clotrimazole (Mycelex) 10 mg 5XDAY MM Last administered on 07/28/18 05:48; Start 07/16/18 at 14:00; Stop 07/28/18 at 14:13; Status DC Ropinirole HCl (Requip) 3 mg DAILY PO Last administered on 07/31/18 12:15; Start 07/17/18 at 09:00 Ropinirole HCl (Requip) 2 mg QHS PO Last administered on 08/01/18 09:46; Start 07/16/18 at 21:00 Ropinirole HCl (Requip) 1 mg PRN QEVNG PRN PO RLS Last administered on 17:46; Start 07/16/18 at 20:00 Vancomycin HCl (Vancomycin Oral Solution) 125 mg Q6HRS PO Last administered on 08/01/18 06:32; Start 07/17/18 at 00:00 Sodium Chloride 1,000 ml @ 1,000 mls/hr Q1H PRN IV hypotension; Start 07/17/18 at 14:55; Stop 07/17/18 at 20:54; Status DC Sodium Chloride 1,000 ml @ 400 mls/hr Q2H30M PRN IV PATENCY; Start 07/17/18 at 14:55; Stop 07/18/18 at 02:54; Status DC Info (PHARMACY MONITORING -- do not chart) 1 each PRN DAILY PRN MC SEE COMMENTS ; Start 07/17/18 at 15:00; Stop 07/17/18 at 15:00; Status DC Info (PHARMACY MONITORING -- do not chart) 1 each PRN DAILY PRN MC SEE COMMENTS ; Start 07/17/18 at 15:00; Stop 07/17/18 at 15:00; Status DC Sodium Chloride 1,000 ml @ 1,000 mls/hr Q1H PRN IV hypotension; Start 07/18/18 at 11:30; Stop 07/18/18 at 17:29; Status DC Sodium Chloride 1,000 ml @ 400 mls/hr Q2H30M PRN IV PATENCY; Start 07/18/18 at 11:30; Stop 07/18/18 at 23:29; Status DC Info (PHARMACY MONITORING -- do not chart) 1 each PRN DAILY PRN MC SEE COMMENTS ; Start 07/18/18 at 12:30; Status UNV Info (PHARMACY MONITORING -- do not chart) 1 each PRN DAILY PRN MC SEE COMMENTS ; Start 07/18/18 at 12:30; Status UNV Vancomycin HCl 500 mg/Sodium Chloride 100 ml @ 100 mls/hr 1X ONCE IV Last administered on 07/18/18at 16:40; Start 07/18/18 at 16:00; Stop 07/18/18 at 16:59 ; Status DC Amino Acids/ Glycerin/ Electrolytes 1,000 ml @ 80 mls/hr [id number] IV Last administered on 08/01/18at 00:36; Start 07/19/18 at 11:45 Potassium Chloride (Klor-Con) 40 meq AFTRNOON PO Last administered on 07/31/18at 13:00; Start 07/19/18 at 13:00 Vancomycin HCl 500 mg/Sodium Chloride 100 ml @ 100 mls/hr 1X ONCE IV ; Start 07/21/18 at 16:00; Stop 07/21/18 at 16:59; Status Cancel Acetaminophen/ Hydrocodone Bitart (Lortab 5/325) 1 tab PRN Q6HRS PRN PO SEVERE PAIN; Start 07/19/18 at 20:00 Sodium Chloride 1,000 ml @ 1,000 mls/hr Q1H PRN IV hypotension; Start 07/21/18 at 12:29; Stop 07/21/18 at 18:28; Status DC Sodium Chloride (Normal Saline Flush) 10 ml 1X PRN PRN IV AP catheter pack; Start 07/21/18 at 12:30; Stop 07/22/18 at 12:29; Status DC Sodium Chloride (Normal Saline Flush) 10 ml 1X PRN PRN IV OPERATING ROOM TECH catheter pack; Start 07/21/18 at 12:30; Stop 07/22/18 at 12:29; Status DC Sodium Chloride 1,000 ml @ 400 mls/hr Q2H30M PRN IV PATENCY; Start 07/21/18 at 12:29; Stop 07/22/18 at 00:28; Status DC Info (PHARMACY MONITORING -- do not chart) 1 each PRN DAILY PRN MC SEE COMMENTS ; Start 07/21/18 at 12:30; Status UNV Info (PHARMACY MONITORING -- do not chart) 1 each PRN DAILY PRN MC SEE COMMENTS ; Start 07/21/18 at 12:30; Status Cancel Vancomycin HCl 750 mg/Sodium Chloride 250 ml @ 250 mls/hr 1X ONCE IV ; Start 07/21/18 at 16:00; Stop 07/21/18 at 16:59; Status Cancel Vancomycin HCl 500 mg/Sodium Chloride 100 ml @ 100 mls/hr 1X ONCE IV Last administered on 07/21/18at 21:35; Start 07/21/18 at 18:30; Stop 07/21/18 at 19:29 ; Status DC Lidocaine/ Epinephrine (LIDOCAINE 1%-EPI 1:100,000 Multi-Dose) 20 ml STK-MED ONCE .ROUTE ; Start 07/22/18 at 11:46; Stop 07/22/18 at 11:47; Status DC Cefazolin Sodium 50 ml @ As Directed STK-MED ONCE IV ; Start 07/22/18 at 12:45; Stop 07/22/18 at 12:46; Status DC Midazolam HCl (Versed) 2 mg STK-MED ONCE .ROUTE ; Start 07/22/18 at 12:45; Stop 07/22/18 at 12:46; Status DC Fentanyl Citrate (Fentanyl 2ml Vial) 100 mcg STK-MED ONCE .ROUTE ; Start at 12:45; Stop 07/22/18 at 12:46; Status DC Vancomycin HCl 500 mg/Sodium Chloride 100 ml @ 100 mls/hr QTUTHSA IV Last administered on 07/24/18 18:27; Start 07/22/18 at 16:00; Stop 07/26/18 at 14:45 ; Status DC Midazolam HCl (Versed) 2 mg 1X ONCE IV Last administered on 07/22/18 13:28; Start 07/22/18 at 13:30; Stop 07/22/18 at 13:31; Status DC Fentanyl Citrate (Fentanyl 2ml Vial) 100 mcg 1X ONCE IV Last administered on at 13:27; Start 07/22/18 at 13:30; Stop 07/22/18 at 13:31; Status DC Lidocaine HCl (Lidocaine 1% 20ml Vial) 20 ml 1X ONCE INJ Last administered on 07/22/18 13:27; Start 07/22/18 at 13:30; Stop 07/22/18 at 13:31; Status DC Ceftaroline Fosamil 400 mg/ Sodium Chloride 250 ml @ 250 mls/hr Q12HR IV Last administered on 07/31/18 20:34; Start 07/22/18 at 14:00 Darbepoetin Avery (Aranesp) 60 mcg [id number] SQ Last administered on 07/29/18 20: 23; Start 07/22/18 at 21:00 Sodium Chloride 1,000 ml @ 1,000 mls/hr Q1H PRN IV hypotension; Start 07/22/18 at 15:20; Stop 07/22/18 at 21:19; Status DC Albumin Human 200 ml @ 200 mls/hr 1X PRN PRN IV Hypotension; Start 07/22/18 at 15:30; Stop 07/22/18 at 21:29; Status DC Acetaminophen (Tylenol) 500 mg 1X PRN PRN PO MILD PAIN / TEMP; Start 07/22/18 at 15:30; Stop 07/23/18 at 15:29; Status DC Diphenhydramine HCl (Benadryl) 25 mg 1X PRN PRN IV ITCHING; Start 07/22/18 at 15:30; Stop 07/23/18 at 15:29; Status DC Diphenhydramine HCl (Benadryl) 25 mg 1X PRN PRN IV ITCHING; Start 07/22/18 at 15:30; Stop 07/23/18 at 15:29; Status DC Sodium Chloride (Normal Saline Flush) 10 ml 1X PRN PRN IV AP catheter pack; Start 07/22/18 at 15:30; Stop 07/23/18 at 15:29; Status DC Sodium Chloride (Normal Saline Flush) 10 ml 1X PRN PRN IV OPERATING ROOM TECH catheter pack; Start 07/22/18 at 15:30; Stop 07/23/18 at 15:29; Status DC Sodium Chloride 1,000 ml @ 400 mls/hr Q2H30M PRN IV PATENCY; Start 07/22/18 at 15:20; Stop 07/23/18 at 03:19; Status DC Info (PHARMACY MONITORING -- do not chart) 1 each PRN DAILY PRN MC SEE COMMENTS ; Start 07/22/18 at 15:30; Stop 07/22/18 at 15:30; Status DC Sodium Chloride 1,000 ml @ 1,000 mls/hr Q1H PRN IV hypotension; Start 07/23/18 at 07:00; Stop 07/23/18 at 12:59; Status DC Sodium Chloride 1,000 ml @ 400 mls/hr Q2H30M PRN IV PATENCY; Start 07/23/18 at 07:00; Stop 07/23/18 at 18:59; Status DC Info (PHARMACY MONITORING -- do not chart) 1 each PRN DAILY PRN MC SEE COMMENTS ; Start 07/23/18 at 09:00; Status UNV Info (PHARMACY MONITORING -- do not chart) 1 each PRN DAILY PRN MC SEE COMMENTS ; Start 07/23/18 at 09:00 Labetalol HCl (Normodyne Iv Push) 10 mg PRN Q2HR PRN IVP HYPERTENSION, SEE COMMENTS; Start 07/23/18 at 09:30 Acetaminophen (Tylenol) 500 mg PRN Q6HRS PRN PO MILD PAIN / TEMP; Start at 09:30 Ondansetron HCl (Zofran) 4 mg PRN Q6HRS PRN IV NAUSEA/VOMITING Last administered on 07/26/18at 16:17; Start 07/23/18 at 09:30 Ondansetron HCl (Zofran Odt) 4 mg PRN Q6HRS PRN PO NAUSEA/VOMITING Last administered on 07/26/18at 16:12; Start 07/23/18 at 09:30 Tramadol HCl (Ultram) 50 mg PRN Q6HRS PRN PO MODERATE PAIN; Start 07/23/18 at 09:30 Amlodipine Besylate (Norvasc) 10 mg DAILY PO Last administered on 08/01/18at 09: 46; Start 07/23/18 at 09:00 Ondansetron HCl (Zofran) 4 mg PRN Q6HRS PRN IV NAUSEA/VOMITING; Start 07/24/18 at 07:00; Stop 07/25/18 at 06:59; Status DC Fentanyl Citrate (Fentanyl 2ml Vial) 25 mcg PRN Q5MIN PRN IV MILD PAIN; Start 07/24/18 at 07:00; Stop 07/25/18 at 06:59; Status DC Fentanyl Citrate (Fentanyl 2ml Vial) 50 mcg PRN Q5MIN PRN IV MODERATE TO SEVERE PAIN; Start 07/24/18 at 07:00; Stop 07/25/18 at 06:59; Status DC Ringer's Solution 1,000 ml @ 30 mls/hr Q24H IV ; Start 07/24/18 at 07:00; Stop 07/24/18 at 18:59; Status DC Lidocaine HCl (Xylocaine-Mpf 1% 2ml Vial) 2 ml PRN 1X PRN ID PRIOR TO IV START ; Start 07/24/18 at 07:00; Stop 07/25/18 at 06:59; Status DC Prochlorperazine Edisylate (Compazine) 5 mg PACU PRN PRN IV NAUSEA, MRX1; Start 07/24/18 at 07:00; Stop 07/25/18 at 06:59; Status DC Vancomycin HCl 500 mg/Sodium Chloride 100 ml @ 100 mls/hr ONCE ONCE IV Last administered on 07/23/18at 17:23; Start 07/23/18 at 16:00; Stop 07/23/18 at 16:59 ; Status DC Nystatin (Mycostatin) 1 rolly BID TP Last administered on 07/31/18at 20:35; Start 07/23/18 at 21:00 Benzocaine (Hurricaine One) 1 spray STK-MED ONCE .ROUTE ; Start 07/24/18 at 11: 49; Stop 07/24/18 at 11:50; Status Cancel Lidocaine HCl (Viscous Lidocaine) 15 ml STK-MED ONCE .ROUTE ; Start 07/24/18 at 11:49; Stop 07/24/18 at 11:50; Status DC Lidocaine HCl (Xylocaine 2% Topical 5gm Tube) 1 rolly 1X ONCE TP ; Start at 12:00; Stop 07/24/18 at 12:01; Status DC Lidocaine HCl (Viscous Lidocaine) 15 ml 1X ONCE SWSW Last administered on 07/24at 13:12; Start 07/24/18 at 12:00; Stop 07/24/18 at 12:01; Status DC Benzocaine (Hurricaine One) 3 spray 1X ONCE MM Last administered on 07/24/18at 13:11; Start 07/24/18 at 12:00; Stop 07/24/18 at 12:01; Status DC Lidocaine HCl (Glydo (Lidocaine) Jelly) 1 rolly 1X ONCE MM Last administered on 07/24/18at 13:10; Start 07/24/18 at 12:00; Stop 07/24/18 at 12:01; Status DC Sodium Chloride 1,000 ml @ 1,000 mls/hr Q1H PRN IV hypotension; Start 07/24/18 at 13:36; Stop 07/24/18 at 19:35; Status DC Albumin Human 200 ml @ 200 mls/hr 1X PRN PRN IV Hypotension; Start 07/24/18 at 13:45; Stop 07/24/18 at 19:44; Status DC Acetaminophen (Tylenol) 500 mg 1X PRN PRN PO MILD PAIN / TEMP; Start 07/24/18 at 13:45; Stop 07/25/18 at 13:44; Status DC Diphenhydramine HCl (Benadryl) 25 mg 1X PRN PRN IV ITCHING; Start 07/24/18 at 13:45; Stop 07/25/18 at 13:44; Status DC Diphenhydramine HCl (Benadryl) 25 mg 1X PRN PRN IV ITCHING; Start 07/24/18 at 13:45; Stop 07/25/18 at 13:44; Status DC Sodium Chloride (Normal Saline Flush) 10 ml 1X PRN PRN IV AP catheter pack; Start 07/24/18 at 13:45; Stop 07/25/18 at 13:44; Status DC Sodium Chloride (Normal Saline Flush) 10 ml 1X PRN PRN IV OPERATING ROOM TECH catheter pack; Start 07/24/18 at 13:45; Stop 07/25/18 at 13:44; Status DC Sodium Chloride 1,000 ml @ 400 mls/hr Q2H30M PRN IV PATENCY; Start 07/24/18 at 13:36; Stop 07/25/18 at 01:35; Status DC Info (PHARMACY MONITORING -- do not chart) 1 each PRN DAILY PRN MC SEE COMMENTS ; Start 07/24/18 at 13:45; Stop 07/24/18 at 13:45; Status DC Propofol (Diprivan) 200 mg STK-MED ONCE IV ; Start 07/24/18 at 13:00; Stop at 08:16; Status DC Loperamide HCl (Imodium) 2 mg 1X ONCE PO Last administered on 07/25/18at 12:47; Start 07/25/18 at 11:15; Stop 07/25/18 at 11:16; Status DC Vancomycin HCl 500 mg/Sodium Chloride 100 ml @ 100 mls/hr QTUTHSA IV ; Start at 16:00; Stop 07/29/18 at 16:00; Status DC Vancomycin HCl (Vancomycin Random Level) 1 each 1X ONCE MC Last administered on 07/27/18at 06:00; Start 07/27/18 at 06:00; Stop 07/27/18 at 06:02; Status DC Simethicone (Gas-X) 80 mg PRN AFTMEALHC PRN PO GAS / BLOATING Last administered on 07/26/18at 16:12; Start 07/26/18 at 15:45 Lidocaine/ Epinephrine (LIDOCAINE 1%-EPI 1:100,000 Multi-Dose) 20 ml STK-MED ONCE .ROUTE ; Start 07/28/18 at 10:36; Stop 07/28/18 at 10:37; Status DC Heparin Sodium (Porcine) (Heparin Sodium) 10,000 unit STK-MED ONCE .ROUTE ; Start 07/28/18 at 10:38; Stop 07/28/18 at 10:39; Status DC Heparin Sodium/ Sodium Chloride 0 ml @ As Directed STK-MED ONCE .ROUTE ; Start 07/28/18 at 10:39; Stop 07/28/18 at 10:40; Status DC Sodium Chloride 1,000 ml @ 1,000 mls/hr Q1H PRN IV hypotension; Start 07/28/18 at 12:54; Stop 07/28/18 at 18:53; Status DC Sodium Chloride (Normal Saline Flush) 10 ml 1X PRN PRN IV AP catheter pack; Start 07/28/18 at 13:00; Stop 07/29/18 at 12:59; Status DC Sodium Chloride (Normal Saline Flush) 10 ml 1X PRN PRN IV OPERATING ROOM TECH catheter pack; Start 07/28/18 at 13:00; Stop 07/29/18 at 12:59; Status DC Info (PHARMACY MONITORING -- do not chart) 1 each PRN DAILY PRN MC SEE COMMENTS ; Start 07/28/18 at 13:00; Status UNV Info (PHARMACY MONITORING -- do not chart) 1 each PRN DAILY PRN MC SEE COMMENTS ; Start 07/28/18 at 13:00; Stop 07/29/18 at 07:20; Status DC Vancomycin HCl 500 mg/Sodium Chloride 100 ml @ 100 mls/hr QMWF IV Last administered on 07/30/18at 16:11; Start 07/28/18 at 16:00; Stop 07/31/18 at 14:28; Status DC Sodium Chloride 1,000 ml @ 1,000 mls/hr Q1H PRN IV hypotension; Start 07/29/18 at 07:02; Stop 07/29/18 at 13:01; Status DC Albumin Human 200 ml @ 200 mls/hr 1X PRN PRN IV Hypotension; Start 07/29/18 at 07:15; Stop 07/29/18 at 13:14; Status DC Acetaminophen (Tylenol) 500 mg 1X PRN PRN PO MILD PAIN / TEMP; Start 07/29/18 at 07:15; Stop 07/30/18 at 07:14; Status DC Diphenhydramine HCl (Benadryl) 25 mg 1X PRN PRN IV ITCHING; Start 07/29/18 at 07 :15; Stop 07/30/18 at 07:14; Status DC Diphenhydramine HCl (Benadryl) 25 mg 1X PRN PRN IV ITCHING; Start 07/29/18 at 07 :15; Stop 07/30/18 at 07:14; Status DC Sodium Chloride 1,000 ml @ 400 mls/hr Q2H30M PRN IV PATENCY; Start 07/29/18 at 07:02; Stop 07/29/18 at 19:01; Status DC Info (PHARMACY MONITORING -- do not chart) 1 each PRN DAILY PRN MC SEE COMMENTS ; Start 07/29/18 at 07:15; Stop 07/29/18 at 07:19; Status DC Sodium Chloride 1,000 ml @ 1,000 mls/hr Q1H PRN IV hypotension; Start 07/31/18 at 08:36; Stop 07/31/18 at 14:35; Status DC Sodium Chloride 1,000 ml @ 400 mls/hr Q2H30M PRN IV PATENCY; Start 07/31/18 at 08:36; Stop 07/31/18 at 20:35; Status DC Info (PHARMACY MONITORING -- do not chart) 1 each PRN DAILY PRN MC SEE COMMENTS ; Start 07/31/18 at 08:45; Status UNV Vancomycin HCl 500 mg/Sodium Chloride 100 ml @ 100 mls/hr QTUTHSA IV Last administered on 07/31/18at 16:58; Start 07/31/18 at 16:00 Vancomycin HCl (Vancomycin Random Level) 1 each 1X ONCE MC ; Start 08/02/18 at 05:00; Stop 08/02/18 at 05:01 Active Scripts Active Reported Dialyvite Tablet (Folic Acid/Vitamin B Comp W-C) 1 Each Tablet 1 Each PO QPM QPM @ 1900 [hectorol] QTUTHSA [epogen] QTUTHSA Mirtazapine 15 Mg Tablet 1 Tab PO QHS Zoloft (Sertraline Hcl) 100 Mg Tablet 1 Tab PO DAILY Requip (Ropinirole Hcl) 1 Mg Tablet 3 Mg PO BID Mirtazapine 15 Mg Tablet 1 Tab PO QHS Megestrol Acetate 40 Mg Tablet 40 Mg PO BID Vitals/I & O Vital Sign - Last 24 Hours 07/31/18 07/31/18 07/31/18 07/31/18 15:00 19:00 19:47 21:10 Temp 98.5 98.5 98.5 98.5 Pulse 63 63 Resp 18 18 B/P (MAP) 147/57 (87) 147/57 (87) Pulse Ox 97 97 100 O2 Delivery Room Air Room Air Room Air Room Air O2 Flow Rate 4.0 07/31/18 08/01/18 08/01/18 08/01/18 22:57 03:00 07:00 09:46 Temp 98.5 97.9 98.4 98.5 97.9 98.4 Pulse 60 84 83 83 Resp 18 20 20 B/P (MAP) 131/58 (82) 161/80 (107) 150/81 (104) 150/81 Pulse Ox 100 98 95 O2 Delivery Room Air Room Air Room Air O2 Flow Rate 4.0 08/01/18 11:04 Temp 98.0 98.0 Pulse 80 Resp 20 B/P (MAP) 131/71 (91) Pulse Ox 98 O2 Delivery Room Air Intake and Output 07/31/18 07/31/18 08/01/18 14:59 22:59 06:59 Intake Total 250 ml 320 ml Balance 250 ml 320 ml Nutrition Consultation Dietary Evaluation: Recommendations by RD: PPN/TPN, Add supplement feedings Comments: day 13 PPN - REC d/c continue Diet per LAB 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
[2018-08-01] MEDS: CEFTAROLINE FOSAMIL IV SCH ×2 (14:03→21:06)
[2018-08-01] MEDS: NORMAL SALINE IV SCH ×2 (14:03→21:06)
[2018-08-01] MEDS: rOPINIRole 1 MG TABLET. PO PRN (14:10)
[2018-08-01 14:37] VITALS: BP 135/69
[2018-08-01] MEDS ORDERED: LIDOCAINE 1%/EPI 1:100,000 20 ML VIAL. ONE (14:59)
[2018-08-01] MEDS ORDERED: HEPARIN PF 500 UNIT/5 ML DISP.SYRIN. IV ONE ×2 (14:59→15:30)
[2018-08-01] MEDS: VANCOMYCIN PER PHARMACY MC PRN (15:24)
--- NOTE | 2018-08-01 15:29 | NUR ---
2 mg requip given at 0946, 1 mg requip given at 1410.
[2018-08-01] MEDS ORDERED: LIDOCAINE 1%/EPI 1:100,000 20 ML VIAL. IJ ONE (15:30)
[2018-08-01] MEDS: FOLIC/VIT B COMP W-C (RENAL) TABLET. PO SCH (18:41)
[2018-08-01 19:00] VITALS: BP 188/87
[2018-08-01] MEDS: MIRTAZAPINE 15 MG TABLET PO SCH (21:13)
[2018-08-01 22:30] VITALS: BP 139/73
[2018-08-02] MEDS: VANCOMYCIN 125 MG/2.5 ML ORAL SOLUTION. PO SCH ×5 (01:00→23:10)
[2018-08-02 02:46] VITALS: BP 171/73
[2018-08-02] MEDS: AMINO AC 3%/ELECTROLYTE/GLYCER 1,000 ML IV SCH ×2 (04:43→16:31)
[2018-08-02] MEDS ORDERED: VANCOMYCIN RANDOM LEVEL. MC ONE (05:00)
[2018-08-02 06:55] VITALS: BP 196/86
[2018-08-02 07:41] LABS: ALBUMIN 1.2 g/dL (3.4-5.0); ALBUMIN/GLOBULIN RATIO 0.3 (1.0-1.7); CALCIUM 8.9 mg/dL (8.5-10.1); CREATININE 2.1 mg/dL (0.6-1.0); GFR 23.2; PHOSPHORUS 1.6 mg/dL (2.6-4.7); POTASSIUM 3.7 mmol/L (3.5-5.1); TOTAL BILIRUBIN 0.2 mg/dL (0.2-1.0); TOTAL PROTEIN 5.8 g/dL (6.4-8.2)
[2018-08-02] MEDS: IPRATRPIUM/ALBUTEROL 0.5/2.5MG 3 ML NEBU. NEB SCH ×2 (08:00→20:36)
[2018-08-02] MEDS ORDERED: IV NORMAL SALINE 1000ML BAG 1,000 ML IV PRN (08:14)
[2018-08-02] MEDS ORDERED: DIALYSIS PATIENT. MC PRN ×2 (08:15)
[2018-08-02] MEDS: VANCOMYCIN PER PHARMACY MC PRN (08:29)
--- NOTE | 2018-08-02 08:29 | NUR ---
Pharmacy Vancomycin Dosing Note S: Consulted to monitor and dose vancomycin started 07/14/18. O: TYLER GUTIERREZ is a 72 year old F with bacteremia, HCAP. Other Antibiotics: CEFTAROLINE 400 MG IV Q12HRS VANCMOYCIN 125 MG PO Q6HRS LABS: Last BUN: 18 Last Creatinine: 2.1 Creatinine Clearance: ESRD HD TTS Last WBC: 9.5 (3/6) Last Platelets: Tmax (past 24 hours): 98.6 Microbiology: BLOOD CX: MRSA; Blood cultures now negative as of 07/24/18 I/O: 1300/output not documented; 0 voids documented Drug Levels: Last Random level: 17.7 on 08/02/18 at 0700 Last dose given 07/31/18 at 1658 A: Patient continues on vancomycin 500 mg after each HD session. A recheck random level today of 17.7 mcg/ml is within goal range. P: 1. Continue Vancomycin 500 mg IV after each HD session 2. Follow up levels in 5 - 7 days if therapy persists 3. Pharmacy will continue to monitor, follow and adjust therapy as needed. SOCO ELY [facility], 08/02/18 2330
--- NOTE | 2018-08-02 08:42 | PDOC ---
SUBJECTIVE ROS seen on HD, no concerns voiced OBJECTIVE Vital Signs Vital Signs Date Time Temp Pulse Resp B/P (MAP) Pulse Ox O2 Delivery O2 Flow Rate FiO2 08/02/18 06:55 98.6 84 17 196/86 (122) 95 Room Air 98.6 I & 0 Intake and Output 08/02/18 07:00 Intake Total 1300 ml Balance 1300 ml Intake Oral 50 ml IV Total 1250 ml # Bowel Movements 3 PHYSICAL EXAM Physical Exam GENERAL: nad HEENT: Pupils are equal and reactive, with normal conjunctivae. + dentures NECK: Supple. LUNGS: Clear to auscultation. HEART: S1, S2. ABDOMEN: Soft and nontender. No guarding or rebound. EXTREMITIES: No clubbing, cyanosis or gross edema. SKIN: Warm to touch, no signs of rash. 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 s/p replacement 07/23 Low Phos- Not on binders Adjust in TPN C. difficile from 07/16 positive Anemia - S/p PRBCs On Aranesp Severe Protein malnutrition Failure to thrive COMMENT/RELEVANT DATA Meds Current Medications Medications (Trade) Dose Ordered Sig/Jaswinder Start Time Stop Time Status Last Admin Dose Admin Acetaminophen (Tylenol) 500 mg 1X PRN PRN 07/29/18 07:15 07/30/18 07:14 DC Acetaminophen/ Hydrocodone Bitart (Lortab 5/325) 1 tab PRN Q6HRS PRN 07/19/18 20:00 Albumin Human 200 ml @ 200 mls/hr 1X PRN PRN 07/29/18 07:15 07/29/18 13:14 DC Albuterol/ Ipratropium (Duoneb) 3 ml RTBID 07/15/18 08:00 07/31/18 21:08 3 ML Amino Acids/ Glycerin/ Electrolytes 1,000 ml @ 80 mls/hr [id number] 07/19/18 11:45 08/02/18 04:43 80 MLS/HR Amlodipine Besylate (Norvasc) 10 mg DAILY 07/23/18 09:00 08/01/18 09:46 10 MG Benzocaine (Hurricaine One) 3 spray 1X ONCE 07/24/18 12:00 07/24/18 12:01 DC 07/24/18 13:11 2 SPRAY Cefazolin Sodium 50 ml @ As Directed STK-MED ONCE 07/22/18 12:45 07/22/18 12:46 DC Ceftaroline Fosamil 400 mg/ Sodium Chloride 250 ml @ 250 mls/hr Q12HR 07/22/18 14:00 08/01/18 21:06 250 MLS/HR Clotrimazole (Mycelex) 10 mg 5XDAY 07/16/18 14:00 07/28/18 14:13 DC 07/28/18 05:48 10 MG Darbepoetin Avery (Aranesp) 60 mcg WEEKLYHS 07/22/18 21:00 07/29/18 20:23 60 MCG Diphenhydramine HCl (Benadryl) 25 mg 1X PRN PRN 07/29/18 07:15 07/30/18 07:14 DC Fentanyl Citrate (Fentanyl 2ml Vial) 50 mcg PRN Q5MIN PRN 07/24/18 07:00 07/25/18 06:59 DC Heparin Sodium (Porcine) (Hep Lock Adult) 500 unit 1X ONCE 08/01/18 15:30 08/01/18 15:31 DC 08/01/18 15:30 500 UNIT Heparin Sodium (Porcine) (Heparin Sodium) 2,000 unit 1X PRN PRN 08/02/18 08:15 08/03/18 08:14 Heparin Sodium/ Sodium Chloride 0 ml @ As Directed STK-MED ONCE 07/28/18 10:39 07/28/18 10:40 DC Info (PHARMACY MONITORING -- do not chart) 1 each PRN DAILY PRN 08/02/18 08:15 Info (Tpn Per Pharmacy) 1 each PRN DAILY PRN 08/01/18 16:30 Labetalol HCl (Normodyne Iv Push) 10 mg PRN Q2HR PRN 07/23/18 09:30 Lactobacillus Rhamnosus (Culturelle) 1 cap BID 07/16/18 21:00 08/01/18 21:13 1 CAP Lidocaine HCl (Glydo (Lidocaine) Jelly) 1 rolly 1X ONCE 07/24/18 12:00 07/24/18 12:01 DC 07/24/18 13:10 1 ROLLY Lidocaine HCl (Lidocaine 1% 20ml Vial) 20 ml 1X ONCE 07/22/18 13:30 07/22/18 13:31 DC 07/22/18 13:27 9 ML Lidocaine HCl (Viscous Lidocaine) 15 ml 1X ONCE 07/24/18 12:00 07/24/18 12:01 DC 07/24/18 13:12 15 ML Lidocaine HCl (Xylocaine 2% Topical 5gm Tube) 1 rolly 1X ONCE 07/24/18 12:00 07/24/18 12:01 DC Lidocaine HCl (Xylocaine-Mpf 1% 2ml Vial) 2 ml PRN 1X PRN 07/24/18 07:00 07/25/18 06:59 DC Lidocaine/ Epinephrine (LIDOCAINE 1%-EPI 1:100,000 Multi-Dose) 20 ml 1X ONCE 08/01/18 15:30 08/01/18 15:31 DC 08/01/18 15:30 8 ML Loperamide HCl (Imodium) 2 mg 1X ONCE 07/25/18 11:15 07/25/18 11:16 DC 07/25/18 12:47 2 MG Megestrol Acetate (Megace) 40 mg BID 07/15/18 09:00 08/01/18 21:12 40 MG Midazolam HCl (Versed) 2 mg 1X ONCE 07/22/18 13:30 07/22/18 13:31 DC 07/22/18 13:28 0.5 MG Mirtazapine (Remeron) 15 mg QHS 07/14/18 22:00 08/01/18 21:13 15 MG Morphine Sulfate (Morphine Sulfate) 2 mg PRN Q2HR PRN 07/14/18 17:15 07/15/18 17:14 DC Non-Formulary Medication (Mirtazapine ) 1 tab QHS 07/15/18 21:00 UNV Nystatin (Mycostatin) 1 rolly BID 07/23/18 21:00 08/01/18 21:14 1 ROLLY Ondansetron HCl (Zofran Odt) 4 mg PRN Q6HRS PRN 07/23/18 09:30 07/26/18 16:12 4 MG Ondansetron HCl (Zofran) 4 mg PRN Q6HRS PRN 07/24/18 07:00 07/25/18 06:59 DC Phytonadione (Mephyton Oral Soln) 5 mg 1X ONCE 07/14/18 22:00 07/14/18 22:01 DC 07/14/18 22:14 5 MG Piperacillin Sod/ Tazobactam Sod 4.5 gm/Sodium Chloride 100 ml @ 200 mls/hr 1X ONCE 07/14/18 15:00 07/14/18 15:29 DC 07/14/18 15:58 200 MLS/HR Potassium Chloride (Klor-Con) 40 meq AFTRNOON 07/19/18 13:00 07/31/18 13:00 40 MEQ Prochlorperazine Edisylate (Compazine) 5 mg PACU PRN PRN 07/24/18 07:00 07/25/18 06:59 DC Propofol (Diprivan) 200 mg STK-MED ONCE 07/24/18 13:00 07/25/18 08:16 DC Ringer's Solution 1,000 ml @ 30 mls/hr Q24H 07/24/18 07:00 07/24/18 18:59 DC Ropinirole HCl (Requip) 1 mg PRN QEVNG PRN 07/16/18 20:00 07/26/18 17:46 1 MG Sertraline HCl (Zoloft) 100 mg DAILY 07/15/18 09:00 08/01/18 09:46 100 MG Simethicone (Gas-X) 80 mg PRN AFTMEALHC PRN 07/26/18 15:45 07/26/18 16:12 80 MG Sodium Chloride 1,000 ml @ 1,000 mls/hr Q1H PRN 08/02/18 08:14 08/02/18 14:13 Sodium Chloride (Normal Saline Flush) 10 ml 1X PRN PRN 07/28/18 13:00 07/29/18 12:59 DC Tramadol HCl (Ultram) 50 mg PRN Q6HRS PRN 07/23/18 09:30 Vancomycin HCl (Vanco Per Pharmacy) 1 each PRN DAILY PRN 07/14/18 14:45 08/02/18 08:29 1 EACH Vancomycin HCl (Vancomycin Random Level) 1 each 1X ONCE 08/02/18 05:00 08/02/18 05:01 DC 08/02/18 05:00 1 EACH Vancomycin HCl (Vancomycin Oral Solution) 125 mg Q6HRS 07/17/18 00:00 08/02/18 04:44 125 MG Vancomycin HCl 1.25 gm/Sodium Chloride 250 ml @ 166.667 mls/hr 1X ONCE 07/14/18 15:00 07/14/18 16:29 DC 07/14/18 18:10 166.667 MLS/HR Vancomycin HCl 500 mg/Sodium Chloride 100 ml @ 100 mls/hr QTUTHSA 07/31/18 16:00 07/31/18 16:58 100 MLS/HR Vancomycin HCl 750 mg/Sodium Chloride 250 ml @ 250 mls/hr 1X ONCE 07/21/18 16:00 07/21/18 16:59 Cancel Vitamin B Complex (Folbic Tablet) 1 tab DAILY 07/15/18 09:00 08/01/18 09:45 1 TAB Vitamin B Complex/ Vitamin C (Dinorah-Ralph) 1 tab QPM 07/15/18 18:00 08/01/18 18:41 1 TAB Lab Laboratory Tests Test 08/02/18 05:45 Sodium Level 134 mmol/L (136-145) Potassium Level 3.7 mmol/L (3.5-5.1) Chloride Level 99 mmol/L (98-107) Carbon Dioxide Level 26 mmol/L (21-32) Anion Gap 9 (6-14) Blood Urea Nitrogen 18 mg/dL (7-20) Creatinine 2.1 mg/dL (0.6-1.0) Estimated GFR (Cockcroft-Gault) 23.2 BUN/Creatinine Ratio 9 (6-20) Glucose Level 97 mg/dL (70-99) Calcium Level 8.9 mg/dL (8.5-10.1) Phosphorus Level 1.6 mg/dL (2.6-4.7) Magnesium Level 2.0 mg/dL (1.8-2.4) Total Bilirubin 0.2 mg/dL (0.2-1.0) Aspartate Amino Transf (AST/SGOT) 15 U/L (15-37) Alanine Aminotransferase (ALT/SGPT) 8 U/L (14-59) Alkaline Phosphatase 104 U/L (46-116) Total Protein 5.8 g/dL (6.4-8.2) Albumin 1.2 g/dL (3.4-5.0) Albumin/Globulin Ratio 0.3 (1.0-1.7) Random Vancomycin Level 17.7 mcg/mL Results All relevant outside records, renal labs, imaging studies, telemetry/EKG's were reviewed. ANNA ZHANG MD Aug 02, 2018 08:42
[2018-08-02] MEDS: TPN PER PHARMACY MC PRN (08:49)
--- NOTE | 2018-08-02 08:50 | NUR ---
Pharmacy TPN Dosing Note S: TYLER GUTIERREZ is a 72 year old F Currently receiving Central Continuous TPN started 08/02/18 B:Pertinent PMH: Malnutrition, poor PO intake Height: 5 feet, 3 inches Weight: 49.9 kg Current diet: regular LABS: Sodium: 134 Potassium: 3.7 Chloride: 99 Calcium: 8.9 Corrected Calcium: 11.14 Magnesium: 2 CO2: 26 SCr: 2.1 Glucose: 97 Albumin: 1.2 AST: 15 ALT: 8 TPN FORMULA: TPN TYPE: Central Continuous AMINO ACIDS: 60 gm DEXTROSE: 195 gm LIPIDS: 20 gm SODIUM CHLORIDE: 90 mEq SODIUM PHOSPHATE: 13.6 mmol POTASSIUM CHLORIDE: 50 mEq MAGNESIUM: 10 mEq MULTIPLE VITAMIN: 10 ml TRACE ELEMENTS: MTE 5 ml TPN PLAN: -Initiate TPN with standard macronutrients. -Patient is ESRD on HD - will concentrate TPN to reduce fluid administration. -Serum phos low - will use NaPhos as replacement in TPN due to HD status. -Corrected calcium well above goal range - initiate TPN with no calcium. -BMP, mag, phos tomorrow. R: Begin TPN at concentrated rate of 42 ml/hr and above formula. Will monitor electrolytes, glucose, and tolerance to TPN. SOCO ELY [facility], 08/02/18 [id number]
--- NOTE | 2018-08-02 10:00 | PDOC ---
Infectious Disease Note Subjective Subjective Not very hungry TPN + diarrhea Denies cramps/bloating/N/V No F/C/S ROS ROS per HPI Vital Sign Vital Signs Vital Signs Date Time Temp Pulse Resp B/P (MAP) Pulse Ox O2 Delivery O2 Flow Rate FiO2 08/02/18 06:55 98.6 84 17 196/86 (122) 95 Room Air 98.6 Physical Exam PHYSICAL EXAM GENERAL: Lying down, alert, dialyzing HEENT: Normal conjunctivae. + dentures NECK: Supple. LUNGS: Clear to auscultation. HEART: S1, S2. ABDOMEN: Soft and nontender. No guarding or rebound. EXTREMITIES: No clubbing, cyanosis or gross edema. SKIN: Warm to touch, no signs of rash. NEUROLOGIC: Alert, responds appropriately Right chest hemodialysis catheter (07/23) clean Left-chest central line (08/01)clean Labs Lab Laboratory Tests Test 08/02/18 05:45 Sodium Level 134 mmol/L (136-145) Potassium Level 3.7 mmol/L (3.5-5.1) Chloride Level 99 mmol/L (98-107) Carbon Dioxide Level 26 mmol/L (21-32) Anion Gap 9 (6-14) Blood Urea Nitrogen 18 mg/dL (7-20) Creatinine 2.1 mg/dL (0.6-1.0) Estimated GFR (Cockcroft-Gault) 23.2 BUN/Creatinine Ratio 9 (6-20) Glucose Level 97 mg/dL (70-99) Calcium Level 8.9 mg/dL (8.5-10.1) Phosphorus Level 1.6 mg/dL (2.6-4.7) Magnesium Level 2.0 mg/dL (1.8-2.4) Total Bilirubin 0.2 mg/dL (0.2-1.0) Aspartate Amino Transf (AST/SGOT) 15 U/L (15-37) Alanine Aminotransferase (ALT/SGPT) 8 U/L (14-59) Alkaline Phosphatase 104 U/L (46-116) Total Protein 5.8 g/dL (6.4-8.2) Albumin 1.2 g/dL (3.4-5.0) Albumin/Globulin Ratio 0.3 (1.0-1.7) Random Vancomycin Level 17.7 mcg/mL Micro 07/24. BLOOD CULTURE Preliminary NO GROWTH AFTER 2 DAYS Objective Assessment MRSA bacteremia POA 07/14 (R tetra) - repeat BC 07/18 and 07/20 positive, BC neg from 07/24 and 07/28 - 2D echo neg vegetation; on 07/24 RAMON showed HD catheter w/ large mobile vegetation or thrombus (measuring at least 2.5 x 1.1 cm) extending into the RA. -s/p tunneled HDC line removal on 07/18. s/p replacement 07/23 C. difficile from 07/16 positive Thrush - better Anemia - S/p PRBCs Leukocytosis - better CKD on HD Severe Protein malnutrition - TPN Failure to thrive. Plan Plan of Care Cont po/IV Vanc postdialysis IV Ceftaroline Probiotics Monitor labs Will need atleast six weeks of IV antibiotics Patient seen, examined, I agree with above. 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 TEVIN HOYOS APRN Aug 02, 2018 10:00 GIANFRANCO GOLD MD Aug 02, 2018 15:25
[2018-08-02] MEDS: NORMAL SALINE IV SCH ×2 (12:56→20:53)
[2018-08-02] MEDS: CEFTAROLINE FOSAMIL IV SCH ×2 (12:56→20:53)
[2018-08-02] MEDS: LACTOBACILLUS RHAMNOSUS GG 1 CAPSULE. PO SCH ×2 (13:01→20:52)
[2018-08-02] MEDS: MEGESTROL 20 MG TABLET. PO SCH ×2 (13:02→20:52)
[2018-08-02] MEDS: VITAMIN B12,B9,B6 COMPLEX 1 TABLET. PO SCH (13:02)
[2018-08-02] MEDS: amLODIPine BESYLATE 10 MG TABLET PO SCH (13:04)
[2018-08-02] MEDS: rOPINIRole 1 MG TABLET. PO SCH ×2 (13:04→20:52)
[2018-08-02] MEDS: SERTRALINE 50 MG TABLET. PO SCH (13:05)
[2018-08-02] MEDS: NYSTATIN 100,000 UNIT/GM TOPICAL CREAM 15GM TUBE. TP SCH ×2 (13:06→20:53)
[2018-08-02] MEDS: POTASSIUM CHLORIDE 20 MEQ TABLET.ER. PO SCH (13:07)
--- NOTE | 2018-08-02 13:40 | PDOC ---
PROGRESS NOTES Chief Complaint Chief Complaint Staph bacteremia 2D echo neg vegetation; on 07/24 RAMON showed HD catheter w/ large mobile vegetation or thrombus (measuring at least 2.5 x 1.1 cm) extending into the RA. -s/p tunneled HDC line removal on 07/18. s/p replacement 07/23 C. difficile from 07/16 positive ESRD on dialysis Anemia of ESRD Leukocytosis/sepsis C. difficile diarrhea improved DNR Hyponatremia secondary to low effective circulatory volume resolved Hypokalemia replacing as per nephrology Vascular dementia HTN Anxiety Depression noncompliance with PT/OT Severe protein calorie malnutrition due to poor oral intake Severe deconditioning that will require placement PLAN: Cont vanc iv and oral HD per renal supportive care encourage as much activity as tolerated follow cultures DNR pt/ot NEW PERMCATH placed on 07/28 Patient opted for TPN awaiting to be started. She may be discharged once this has been achieved History of Present Illness History of Present Illness No fever, WBC resolved Hemoglobin stable status post transfusion. On contact Isol because of bacteremia and C. difficile positivity Palliative note reviewed, patient wishes to continue dialysis 07/25 Earlier entry: 72 yo f w/ PMHx CVA with vascular dementia, HTN, anxiety, depression, end-stage renal disease on dialysis Saturday, Saturday, (new dx 2018), last dialyzed on Saturday who p/w fever, decreased appetite, fever, decreased energy/ weakness, symptoms began 3 days ago. Found with Hb of 5.6 in ED, transfused PRBC to 7.5. She was noted with loose stools as well. She has history dementia but she is alert to person only, but is able to carry on a conversation and give some health history. She does not refuse dialysis every day. She was seen here this past January 2018 and May 2018 and sent home with home health ([place]). She has a DPOA, Ivy the nephew has been texting who has been informed of hospital admission. 07/15: Seen on dialysis today. She has some chills with this. Notably, lab called about 3/4 bottles positive on blood culture for GPC in clusters. 07/16: Feeling terrible today. Has diarrhea x2 POSITIVE FOR C. DIFFICILE. She has bilateral LQ pain. Started on oral vancomycin and continued on IV Vancomycin 07/17: Still with poor PO intake 07/18: HD catheter pulled. Culture looks like MRSA 07/19: Still not eating, started PPN. Still with repeat blood cultures 1/4 bottles positive 07/21 DECISION FOR PALLIATIVE CARE Needed GRAM POSITIVE COCCI IN CLUSTERS, SUGGESTIVE OF STAPH, IN 4 OF 5 BOTTLES, 3 SETS DRAWN ON 07/20/18. ALL 3 SETS ARE POSITIVE. Still with some loose stools. Positive / repeat blood cultures after line was pulled. Denies SOB and CP. She does have some catheter site pain where it was pulled. 07/25 NONCOMPLIANT WITH PT/OT, BLOOD CUL PENDING, REPEAT, high risk of complications due to noncompliance per my personal review of chart 07/26 PERMCATH NONFUNCTIONAL. NEW PERMCATH SATURDAY refusing to eat lunch today, bp uncontrolled 07/27 still not eating well, noncompliant 07/28 NOT IMPROVED FAR COMPLIANCE, POOR APPETITE 07/28 Problem List (body system elements) * Impaired fnctnl mobility * Strength * Balance * Knowledge-safe techniques NEEDS SNF 07/29 Patient with no acute events reported overnight, patient with improving appetite, will see how much she is able to eat today and hopefully wean off procalamine. No fever chills diaphoresis reported. 07/30 patient with no acute events reported overnight. Continues to try to eat a little bit more, but still very debilitated. Reassurances been provided her diarrhea is slowly improving 07/31 patient very lethargic after dialysis seems to be her usual norm as per nursing staff, she is not eating much of her meals will readdress her nutritional status once she is more receptive for a conversation. Vitals Vitals Vital Signs Date Time Temp Pulse Resp B/P (MAP) Pulse Ox O2 Delivery O2 Flow Rate FiO2 08/02/18 13:04 88 162/78 08/02/18 06:55 98.6 17 95 Room Air 98.6 Physical Exam Physical Exam GENERAL: Lying down, alert, dialyzing HEENT: Normal conjunctivae. + dentures NECK: Supple. LUNGS: Clear to auscultation. HEART: S1, S2. ABDOMEN: Soft and nontender. No guarding or rebound. EXTREMITIES: No clubbing, cyanosis or gross edema. SKIN: Warm to touch, no signs of rash. NEUROLOGIC: Alert, responds appropriately Right chest hemodialysis catheter (07/23) clean Left-chest central line (08/01)clean General: Alert, Oriented X3, No acute distress, Other (poorly oriented) Heart: Regular rate, Normal S1 Lungs: Clear Abdomen: Normal bowel sounds, Soft, No tenderness Extremities: No clubbing, No cyanosis, Normal pulses Skin: No rashes, No significant lesion Labs LABS Laboratory Tests Test 08/02/18 05:45 Sodium Level 134 mmol/L (136-145) Potassium Level 3.7 mmol/L (3.5-5.1) Chloride Level 99 mmol/L (98-107) Carbon Dioxide Level 26 mmol/L (21-32) Anion Gap 9 (6-14) Blood Urea Nitrogen 18 mg/dL (7-20) Creatinine 2.1 mg/dL (0.6-1.0) Estimated GFR (Cockcroft-Gault) 23.2 BUN/Creatinine Ratio 9 (6-20) Glucose Level 97 mg/dL (70-99) Calcium Level 8.9 mg/dL (8.5-10.1) Phosphorus Level 1.6 mg/dL (2.6-4.7) Magnesium Level 2.0 mg/dL (1.8-2.4) Total Bilirubin 0.2 mg/dL (0.2-1.0) Aspartate Amino Transf (AST/SGOT) 15 U/L (15-37) Alanine Aminotransferase (ALT/SGPT) 8 U/L (14-59) Alkaline Phosphatase 104 U/L (46-116) Total Protein 5.8 g/dL (6.4-8.2) Albumin 1.2 g/dL (3.4-5.0) Albumin/Globulin Ratio 0.3 (1.0-1.7) Random Vancomycin Level 17.7 mcg/mL Assessment and Plan Assessmemt and Plan Problems Medical Problems: (1) End stage renal disease Status: Acute (2) Generalized weakness Status: Acute Comment Review of Relevant I have reviewed the following items linda (where applicable) has been applied. Labs Laboratory Tests Test 08/02/18 05:45 Sodium Level 134 mmol/L (136-145) Potassium Level 3.7 mmol/L (3.5-5.1) Chloride Level 99 mmol/L (98-107) Carbon Dioxide Level 26 mmol/L (21-32) Anion Gap 9 (6-14) Blood Urea Nitrogen 18 mg/dL (7-20) Creatinine 2.1 mg/dL (0.6-1.0) Estimated GFR (Cockcroft-Gault) 23.2 BUN/Creatinine Ratio 9 (6-20) Glucose Level 97 mg/dL (70-99) Calcium Level 8.9 mg/dL (8.5-10.1) Phosphorus Level 1.6 mg/dL (2.6-4.7) Magnesium Level 2.0 mg/dL (1.8-2.4) Total Bilirubin 0.2 mg/dL (0.2-1.0) Aspartate Amino Transf (AST/SGOT) 15 U/L (15-37) Alanine Aminotransferase (ALT/SGPT) 8 U/L (14-59) Alkaline Phosphatase 104 U/L (46-116) Total Protein 5.8 g/dL (6.4-8.2) Albumin 1.2 g/dL (3.4-5.0) Albumin/Globulin Ratio 0.3 (1.0-1.7) Random Vancomycin Level 17.7 mcg/mL Laboratory Tests Test 08/02/18 05:45 Sodium Level 134 mmol/L (136-145) Potassium Level 3.7 mmol/L (3.5-5.1) Chloride Level 99 mmol/L (98-107) Carbon Dioxide Level 26 mmol/L (21-32) Anion Gap 9 (6-14) Blood Urea Nitrogen 18 mg/dL (7-20) Creatinine 2.1 mg/dL (0.6-1.0) Estimated GFR (Cockcroft-Gault) 23.2 BUN/Creatinine Ratio 9 (6-20) Glucose Level 97 mg/dL (70-99) Calcium Level 8.9 mg/dL (8.5-10.1) Phosphorus Level 1.6 mg/dL (2.6-4.7) Magnesium Level 2.0 mg/dL (1.8-2.4) Total Bilirubin 0.2 mg/dL (0.2-1.0) Aspartate Amino Transf (AST/SGOT) 15 U/L (15-37) Alanine Aminotransferase (ALT/SGPT) 8 U/L (14-59) Alkaline Phosphatase 104 U/L (46-116) Total Protein 5.8 g/dL (6.4-8.2) Albumin 1.2 g/dL (3.4-5.0) Albumin/Globulin Ratio 0.3 (1.0-1.7) Random Vancomycin Level 17.7 mcg/mL Microbiology 07/28/18 Blood Culture - Preliminary, Resulted NO GROWTH AFTER 4 DAYS 07/14/18 Urine Culture - Final, Complete 07/14/18 Urine Culture Result 1 (MARYANN) - Final, Complete Medications Current Medications Piperacillin Sod/ Tazobactam Sod 4.5 gm/Sodium Chloride 100 ml @ 200 mls/hr 1X ONCE IV Last administered on 07/14/18at 15:58; Start 07/14/18 at 15:00; Stop 07/14/18 at 15:29; Status DC Vancomycin HCl (Vanco Per Pharmacy) 1 each PRN DAILY PRN MC SEE COMMENTS Last administered on 08/02/18at 08:29; Start 07/14/18 at 14:45 Vancomycin HCl 1.25 gm/Sodium Chloride 250 ml @ 166.667 mls/hr 1X ONCE IV Last administered on 07/14/18at 18:10; Start 07/14/18 at 15:00; Stop 07/14/18 at 16:29; Status DC Ondansetron HCl (Zofran) 4 mg PRN Q8HRS PRN IV NAUSEA/VOMITING; Start 07/14/18 at 17:15; Stop 07/15/18 at 17:14; Status DC Morphine Sulfate (Morphine Sulfate) 2 mg PRN Q2HR PRN IV PAIN; Start 07/14/18 at 17:15; Stop 07/15/18 at 17:14; Status DC Acetaminophen (Tylenol) 650 mg PRN Q4HRS PRN PO FEVER; Start 07/14/18 at 17:15 ; Stop 07/15/18 at 17:14; Status DC Vancomycin HCl (Vancomycin Random Level) 1 each 1X ONCE MC ; Start 07/15/18 at 06:00; Stop 07/15/18 at 06:01; Status DC Vitamin B Complex/ Vitamin C (Dinorah-Ralph) 1 tab QPM PO Last administered on at 18:41; Start 07/15/18 at 18:00 Megestrol Acetate (Megace) 40 mg BID PO Last administered on 08/02/18at 13:02; Start 07/15/18 at 09:00 Mirtazapine (Remeron) 15 mg QHS PO Last administered on 08/01/18 21:13; Start 07/14/18 at 22:00 Non-Formulary Medication (Mirtazapine ) 1 tab QHS PO ; Start 07/15/18 at 21:00; Status UNV Ropinirole HCl (Requip) 3 mg BID PO Last administered on 07/16/18 18:21; Start 07/14/18 at 22:00; Stop 07/16/18 at 19:54; Status DC Sertraline HCl (Zoloft) 100 mg DAILY PO Last administered on 08/02/18 13:05; Start 07/15/18 at 09:00 Phytonadione (Mephyton Oral Soln) 5 mg 1X ONCE PO Last administered on 22:14; Start 07/14/18 at 22:00; Stop 07/14/18 at 22:01; Status DC Vitamin B Complex (Folbic Tablet) 1 tab DAILY PO Last administered on 08/02/18 13:02; Start 07/15/18 at 09:00 Albuterol/ Ipratropium (Duoneb) 3 ml RTBID NEB Last administered on 07/31/18 21 :08; Start 07/15/18 at 08:00 Sodium Chloride 1,000 ml @ 1,000 mls/hr Q1H PRN IV hypotension; Start 07/15/18 at 10:48; Stop 07/15/18 at 16:47; Status DC Albumin Human 200 ml @ 200 mls/hr 1X PRN PRN IV Hypotension; Start 07/15/18 at 11:00; Stop 07/15/18 at 16:59; Status DC Sodium Chloride 1,000 ml @ 400 mls/hr Q2H30M PRN IV PATENCY; Start 07/15/18 at 10:48; Stop 07/15/18 at 22:47; Status DC Info (PHARMACY MONITORING -- do not chart) 1 each PRN DAILY PRN MC SEE COMMENTS ; Start 07/15/18 at 11:00; Status UNV Info (PHARMACY MONITORING -- do not chart) 1 each PRN DAILY PRN MC SEE COMMENTS ; Start 07/15/18 at 11:00; Stop 07/22/18 at 14:31; Status DC Vancomycin HCl 500 mg/Sodium Chloride 100 ml @ 100 mls/hr QTUTHSA IV Last administered on 07/17/18at 16:44; Start 07/17/18 at 16:00; Stop 07/18/18 at 15:41 ; Status DC Lactobacillus Rhamnosus (Culturelle) 1 cap BID PO Last administered on 13:01; Start 07/16/18 at 21:00 Clotrimazole (Mycelex) 10 mg 5XDAY MM Last administered on 07/28/18 05:48; Start 07/16/18 at 14:00; Stop 07/28/18 at 14:13; Status DC Ropinirole HCl (Requip) 3 mg DAILY PO Last administered on 08/02/18 13:04; Start 07/17/18 at 09:00 Ropinirole HCl (Requip) 2 mg QHS PO Last administered on 08/01/18 21:13; Start 07/16/18 at 21:00 Ropinirole HCl (Requip) 1 mg PRN QEVNG PRN PO RLS Last administered on 17:46; Start 07/16/18 at 20:00 Vancomycin HCl (Vancomycin Oral Solution) 125 mg Q6HRS PO Last administered on 08/02/18 13:06; Start 07/17/18 at 00:00 Sodium Chloride 1,000 ml @ 1,000 mls/hr Q1H PRN IV hypotension; Start 07/17/18 at 14:55; Stop 07/17/18 at 20:54; Status DC Sodium Chloride 1,000 ml @ 400 mls/hr Q2H30M PRN IV PATENCY; Start 07/17/18 at 14:55; Stop 07/18/18 at 02:54; Status DC Info (PHARMACY MONITORING -- do not chart) 1 each PRN DAILY PRN MC SEE COMMENTS ; Start 07/17/18 at 15:00; Stop 07/17/18 at 15:00; Status DC Info (PHARMACY MONITORING -- do not chart) 1 each PRN DAILY PRN MC SEE COMMENTS ; Start 07/17/18 at 15:00; Stop 07/17/18 at 15:00; Status DC Sodium Chloride 1,000 ml @ 1,000 mls/hr Q1H PRN IV hypotension; Start 07/18/18 at 11:30; Stop 07/18/18 at 17:29; Status DC Sodium Chloride 1,000 ml @ 400 mls/hr Q2H30M PRN IV PATENCY; Start 07/18/18 at 11:30; Stop 07/18/18 at 23:29; Status DC Info (PHARMACY MONITORING -- do not chart) 1 each PRN DAILY PRN MC SEE COMMENTS ; Start 07/18/18 at 12:30; Status UNV Info (PHARMACY MONITORING -- do not chart) 1 each PRN DAILY PRN MC SEE COMMENTS ; Start 07/18/18 at 12:30; Status UNV Vancomycin HCl 500 mg/Sodium Chloride 100 ml @ 100 mls/hr 1X ONCE IV Last administered on 07/18/18at 16:40; Start 07/18/18 at 16:00; Stop 07/18/18 at 16:59 ; Status DC Amino Acids/ Glycerin/ Electrolytes 1,000 ml @ 80 mls/hr [id number] IV Last administered on 08/02/18at 04:43; Start 07/19/18 at 11:45; Stop 08/02/18 at 21:59 Potassium Chloride (Klor-Con) 40 meq AFTRNOON PO Last administered on 08/02/18at 13:07; Start 07/19/18 at 13:00 Vancomycin HCl 500 mg/Sodium Chloride 100 ml @ 100 mls/hr 1X ONCE IV ; Start 07/21/18 at 16:00; Stop 07/21/18 at 16:59; Status Cancel Acetaminophen/ Hydrocodone Bitart (Lortab 5/325) 1 tab PRN Q6HRS PRN PO SEVERE PAIN; Start 07/19/18 at 20:00 Sodium Chloride 1,000 ml @ 1,000 mls/hr Q1H PRN IV hypotension; Start 07/21/18 at 12:29; Stop 07/21/18 at 18:28; Status DC Sodium Chloride (Normal Saline Flush) 10 ml 1X PRN PRN IV AP catheter pack; Start 07/21/18 at 12:30; Stop 07/22/18 at 12:29; Status DC Sodium Chloride (Normal Saline Flush) 10 ml 1X PRN PRN IV PROBATION OFFICER catheter pack; Start 07/21/18 at 12:30; Stop 07/22/18 at 12:29; Status DC Sodium Chloride 1,000 ml @ 400 mls/hr Q2H30M PRN IV PATENCY; Start 07/21/18 at 12:29; Stop 07/22/18 at 00:28; Status DC Info (PHARMACY MONITORING -- do not chart) 1 each PRN DAILY PRN MC SEE COMMENTS ; Start 07/21/18 at 12:30; Status UNV Info (PHARMACY MONITORING -- do not chart) 1 each PRN DAILY PRN MC SEE COMMENTS ; Start 07/21/18 at 12:30; Status Cancel Vancomycin HCl 750 mg/Sodium Chloride 250 ml @ 250 mls/hr 1X ONCE IV ; Start 07/21/18 at 16:00; Stop 07/21/18 at 16:59; Status Cancel Vancomycin HCl 500 mg/Sodium Chloride 100 ml @ 100 mls/hr 1X ONCE IV Last administered on 07/21/18at 21:35; Start 07/21/18 at 18:30; Stop 07/21/18 at 19:29 ; Status DC Lidocaine/ Epinephrine (LIDOCAINE 1%-EPI 1:100,000 Multi-Dose) 20 ml STK-MED ONCE .ROUTE ; Start 07/22/18 at 11:46; Stop 07/22/18 at 11:47; Status DC Cefazolin Sodium 50 ml @ As Directed STK-MED ONCE IV ; Start 07/22/18 at 12:45; Stop 07/22/18 at 12:46; Status DC Midazolam HCl (Versed) 2 mg STK-MED ONCE .ROUTE ; Start 07/22/18 at 12:45; Stop 07/22/18 at 12:46; Status DC Fentanyl Citrate (Fentanyl 2ml Vial) 100 mcg STK-MED ONCE .ROUTE ; Start at 12:45; Stop 07/22/18 at 12:46; Status DC Vancomycin HCl 500 mg/Sodium Chloride 100 ml @ 100 mls/hr QTUTHSA IV Last administered on 07/24/18at 18:27; Start 07/22/18 at 16:00; Stop 07/26/18 at 14:45 ; Status DC Midazolam HCl (Versed) 2 mg 1X ONCE IV Last administered on 07/22/18at 13:28; Start 07/22/18 at 13:30; Stop 07/22/18 at 13:31; Status DC Fentanyl Citrate (Fentanyl 2ml Vial) 100 mcg 1X ONCE IV Last administered on at 13:27; Start 07/22/18 at 13:30; Stop 07/22/18 at 13:31; Status DC Lidocaine HCl (Lidocaine 1% 20ml Vial) 20 ml 1X ONCE INJ Last administered on 07/22/18at 13:27; Start 07/22/18 at 13:30; Stop 07/22/18 at 13:31; Status DC Ceftaroline Fosamil 400 mg/ Sodium Chloride 250 ml @ 250 mls/hr Q12HR IV Last administered on 08/02/18at 12:56; Start 07/22/18 at 14:00 Darbepoetin Avery (Aranesp) 60 mcg [id number] SQ Last administered on 07/29/18at 20: 23; Start 07/22/18 at 21:00 Sodium Chloride 1,000 ml @ 1,000 mls/hr Q1H PRN IV hypotension; Start 07/22/18 at 15:20; Stop 07/22/18 at 21:19; Status DC Albumin Human 200 ml @ 200 mls/hr 1X PRN PRN IV Hypotension; Start 07/22/18 at 15:30; Stop 07/22/18 at 21:29; Status DC Acetaminophen (Tylenol) 500 mg 1X PRN PRN PO MILD PAIN / TEMP; Start 07/22/18 at 15:30; Stop 07/23/18 at 15:29; Status DC Diphenhydramine HCl (Benadryl) 25 mg 1X PRN PRN IV ITCHING; Start 07/22/18 at 15:30; Stop 07/23/18 at 15:29; Status DC Diphenhydramine HCl (Benadryl) 25 mg 1X PRN PRN IV ITCHING; Start 07/22/18 at 15:30; Stop 07/23/18 at 15:29; Status DC Sodium Chloride (Normal Saline Flush) 10 ml 1X PRN PRN IV AP catheter pack; Start 07/22/18 at 15:30; Stop 07/23/18 at 15:29; Status DC Sodium Chloride (Normal Saline Flush) 10 ml 1X PRN PRN IV PROBATION OFFICER catheter pack; Start 07/22/18 at 15:30; Stop 07/23/18 at 15:29; Status DC Sodium Chloride 1,000 ml @ 400 mls/hr Q2H30M PRN IV PATENCY; Start 07/22/18 at 15:20; Stop 07/23/18 at 03:19; Status DC Info (PHARMACY MONITORING -- do not chart) 1 each PRN DAILY PRN MC SEE COMMENTS ; Start 07/22/18 at 15:30; Stop 07/22/18 at 15:30; Status DC Sodium Chloride 1,000 ml @ 1,000 mls/hr Q1H PRN IV hypotension; Start 07/23/18 at 07:00; Stop 07/23/18 at 12:59; Status DC Sodium Chloride 1,000 ml @ 400 mls/hr Q2H30M PRN IV PATENCY; Start 07/23/18 at 07:00; Stop 07/23/18 at 18:59; Status DC Info (PHARMACY MONITORING -- do not chart) 1 each PRN DAILY PRN MC SEE COMMENTS ; Start 07/23/18 at 09:00; Status UNV Info (PHARMACY MONITORING -- do not chart) 1 each PRN DAILY PRN MC SEE COMMENTS ; Start 07/23/18 at 09:00 Labetalol HCl (Normodyne Iv Push) 10 mg PRN Q2HR PRN IVP HYPERTENSION, SEE COMMENTS; Start 07/23/18 at 09:30 Acetaminophen (Tylenol) 500 mg PRN Q6HRS PRN PO MILD PAIN / TEMP; Start at 09:30 Ondansetron HCl (Zofran) 4 mg PRN Q6HRS PRN IV NAUSEA/VOMITING Last administered on 07/26/18at 16:17; Start 07/23/18 at 09:30 Ondansetron HCl (Zofran Odt) 4 mg PRN Q6HRS PRN PO NAUSEA/VOMITING Last administered on 07/26/18at 16:12; Start 07/23/18 at 09:30 Tramadol HCl (Ultram) 50 mg PRN Q6HRS PRN PO MODERATE PAIN; Start 07/23/18 at 09:30 Amlodipine Besylate (Norvasc) 10 mg DAILY PO Last administered on 08/02/18at 13: 04; Start 07/23/18 at 09:00 Ondansetron HCl (Zofran) 4 mg PRN Q6HRS PRN IV NAUSEA/VOMITING; Start 07/24/18 at 07:00; Stop 07/25/18 at 06:59; Status DC Fentanyl Citrate (Fentanyl 2ml Vial) 25 mcg PRN Q5MIN PRN IV MILD PAIN; Start 07/24/18 at 07:00; Stop 07/25/18 at 06:59; Status DC Fentanyl Citrate (Fentanyl 2ml Vial) 50 mcg PRN Q5MIN PRN IV MODERATE TO SEVERE PAIN; Start 07/24/18 at 07:00; Stop 07/25/18 at 06:59; Status DC Ringer's Solution 1,000 ml @ 30 mls/hr Q24H IV ; Start 07/24/18 at 07:00; Stop 07/24/18 at 18:59; Status DC Lidocaine HCl (Xylocaine-Mpf 1% 2ml Vial) 2 ml PRN 1X PRN ID PRIOR TO IV START ; Start 07/24/18 at 07:00; Stop 07/25/18 at 06:59; Status DC Prochlorperazine Edisylate (Compazine) 5 mg PACU PRN PRN IV NAUSEA, MRX1; Start 07/24/18 at 07:00; Stop 07/25/18 at 06:59; Status DC Vancomycin HCl 500 mg/Sodium Chloride 100 ml @ 100 mls/hr ONCE ONCE IV Last administered on 07/23/18at 17:23; Start 07/23/18 at 16:00; Stop 07/23/18 at 16:59 ; Status DC Nystatin (Mycostatin) 1 rolly BID TP Last administered on 08/02/18at 13:06; Start 07/23/18 at 21:00 Benzocaine (Hurricaine One) 1 spray STK-MED ONCE .ROUTE ; Start 07/24/18 at 11: 49; Stop 07/24/18 at 11:50; Status Cancel Lidocaine HCl (Viscous Lidocaine) 15 ml STK-MED ONCE .ROUTE ; Start 07/24/18 at 11:49; Stop 07/24/18 at 11:50; Status DC Lidocaine HCl (Xylocaine 2% Topical 5gm Tube) 1 rolly 1X ONCE TP ; Start at 12:00; Stop 07/24/18 at 12:01; Status DC Lidocaine HCl (Viscous Lidocaine) 15 ml 1X ONCE SWSW Last administered on 07/24at 13:12; Start 07/24/18 at 12:00; Stop 07/24/18 at 12:01; Status DC Benzocaine (Hurricaine One) 3 spray 1X ONCE MM Last administered on 07/24/18at 13:11; Start 07/24/18 at 12:00; Stop 07/24/18 at 12:01; Status DC Lidocaine HCl (Glydo (Lidocaine) Jelly) 1 rolly 1X ONCE MM Last administered on 07/24/18at 13:10; Start 07/24/18 at 12:00; Stop 07/24/18 at 12:01; Status DC Sodium Chloride 1,000 ml @ 1,000 mls/hr Q1H PRN IV hypotension; Start 07/24/18 at 13:36; Stop 07/24/18 at 19:35; Status DC Albumin Human 200 ml @ 200 mls/hr 1X PRN PRN IV Hypotension; Start 07/24/18 at 13:45; Stop 07/24/18 at 19:44; Status DC Acetaminophen (Tylenol) 500 mg 1X PRN PRN PO MILD PAIN / TEMP; Start 07/24/18 at 13:45; Stop 07/25/18 at 13:44; Status DC Diphenhydramine HCl (Benadryl) 25 mg 1X PRN PRN IV ITCHING; Start 07/24/18 at 13:45; Stop 07/25/18 at 13:44; Status DC Diphenhydramine HCl (Benadryl) 25 mg 1X PRN PRN IV ITCHING; Start 07/24/18 at 13:45; Stop 07/25/18 at 13:44; Status DC Sodium Chloride (Normal Saline Flush) 10 ml 1X PRN PRN IV AP catheter pack; Start 07/24/18 at 13:45; Stop 07/25/18 at 13:44; Status DC Sodium Chloride (Normal Saline Flush) 10 ml 1X PRN PRN IV PROBATION OFFICER catheter pack; Start 07/24/18 at 13:45; Stop 07/25/18 at 13:44; Status DC Sodium Chloride 1,000 ml @ 400 mls/hr Q2H30M PRN IV PATENCY; Start 07/24/18 at 13:36; Stop 07/25/18 at 01:35; Status DC Info (PHARMACY MONITORING -- do not chart) 1 each PRN DAILY PRN MC SEE COMMENTS ; Start 07/24/18 at 13:45; Stop 07/24/18 at 13:45; Status DC Propofol (Diprivan) 200 mg STK-MED ONCE IV ; Start 07/24/18 at 13:00; Stop at 08:16; Status DC Loperamide HCl (Imodium) 2 mg 1X ONCE PO Last administered on 07/25/18at 12:47; Start 07/25/18 at 11:15; Stop 07/25/18 at 11:16; Status DC Vancomycin HCl 500 mg/Sodium Chloride 100 ml @ 100 mls/hr QTUTHSA IV ; Start at 16:00; Stop 07/29/18 at 16:00; Status DC Vancomycin HCl (Vancomycin Random Level) 1 each 1X ONCE MC Last administered on 07/27/18at 06:00; Start 07/27/18 at 06:00; Stop 07/27/18 at 06:02; Status DC Simethicone (Gas-X) 80 mg PRN AFTMEALHC PRN PO GAS / BLOATING Last administered on 07/26/18at 16:12; Start 07/26/18 at 15:45 Lidocaine/ Epinephrine (LIDOCAINE 1%-EPI 1:100,000 Multi-Dose) 20 ml STK-MED ONCE .ROUTE ; Start 07/28/18 at 10:36; Stop 07/28/18 at 10:37; Status DC Heparin Sodium (Porcine) (Heparin Sodium) 10,000 unit STK-MED ONCE .ROUTE ; Start 07/28/18 at 10:38; Stop 07/28/18 at 10:39; Status DC Heparin Sodium/ Sodium Chloride 0 ml @ As Directed STK-MED ONCE .ROUTE ; Start 07/28/18 at 10:39; Stop 07/28/18 at 10:40; Status DC Sodium Chloride 1,000 ml @ 1,000 mls/hr Q1H PRN IV hypotension; Start 07/28/18 at 12:54; Stop 07/28/18 at 18:53; Status DC Sodium Chloride (Normal Saline Flush) 10 ml 1X PRN PRN IV AP catheter pack; Start 07/28/18 at 13:00; Stop 07/29/18 at 12:59; Status DC Sodium Chloride (Normal Saline Flush) 10 ml 1X PRN PRN IV PROBATION OFFICER catheter pack; Start 07/28/18 at 13:00; Stop 07/29/18 at 12:59; Status DC Info (PHARMACY MONITORING -- do not chart) 1 each PRN DAILY PRN MC SEE COMMENTS ; Start 07/28/18 at 13:00; Status UNV Info (PHARMACY MONITORING -- do not chart) 1 each PRN DAILY PRN MC SEE COMMENTS ; Start 07/28/18 at 13:00; Stop 07/29/18 at 07:20; Status DC Vancomycin HCl 500 mg/Sodium Chloride 100 ml @ 100 mls/hr QMWF IV Last administered on 07/30/18at 16:11; Start 07/28/18 at 16:00; Stop 07/31/18 at 14:28; Status DC Sodium Chloride 1,000 ml @ 1,000 mls/hr Q1H PRN IV hypotension; Start 07/29/18 at 07:02; Stop 07/29/18 at 13:01; Status DC Albumin Human 200 ml @ 200 mls/hr 1X PRN PRN IV Hypotension; Start 07/29/18 at 07:15; Stop 07/29/18 at 13:14; Status DC Acetaminophen (Tylenol) 500 mg 1X PRN PRN PO MILD PAIN / TEMP; Start 07/29/18 at 07:15; Stop 07/30/18 at 07:14; Status DC Diphenhydramine HCl (Benadryl) 25 mg 1X PRN PRN IV ITCHING; Start 07/29/18 at 07 :15; Stop 07/30/18 at 07:14; Status DC Diphenhydramine HCl (Benadryl) 25 mg 1X PRN PRN IV ITCHING; Start 07/29/18 at 07 :15; Stop 07/30/18 at 07:14; Status DC Sodium Chloride 1,000 ml @ 400 mls/hr Q2H30M PRN IV PATENCY; Start 07/29/18 at 07:02; Stop 07/29/18 at 19:01; Status DC Info (PHARMACY MONITORING -- do not chart) 1 each PRN DAILY PRN MC SEE COMMENTS ; Start 07/29/18 at 07:15; Stop 07/29/18 at 07:19; Status DC Sodium Chloride 1,000 ml @ 1,000 mls/hr Q1H PRN IV hypotension; Start 07/31/18 at 08:36; Stop 07/31/18 at 14:35; Status DC Sodium Chloride 1,000 ml @ 400 mls/hr Q2H30M PRN IV PATENCY; Start 07/31/18 at 08:36; Stop 07/31/18 at 20:35; Status DC Info (PHARMACY MONITORING -- do not chart) 1 each PRN DAILY PRN MC SEE COMMENTS ; Start 07/31/18 at 08:45; Status UNV Vancomycin HCl 500 mg/Sodium Chloride 100 ml @ 100 mls/hr QTUTHSA IV Last administered on 07/31/18at 16:58; Start 07/31/18 at 16:00 Vancomycin HCl (Vancomycin Random Level) 1 each 1X ONCE MC Last administered on 08/02/18at 05:00; Start 08/02/18 at 05:00; Stop 08/02/18 at 05:01; Status DC Lidocaine/ Epinephrine (LIDOCAINE 1%-EPI 1:100,000 Multi-Dose) 20 ml STK-MED ONCE .ROUTE ; Start 08/01/18 at 14:59; Stop 08/01/18 at 15:00; Status DC Heparin Sodium (Porcine) (Hep Lock Adult) 500 unit STK-MED ONCE IV ; Start at 14:59; Stop 08/01/18 at 15:00; Status DC Lidocaine/ Epinephrine (LIDOCAINE 1%-EPI 1:100,000 Multi-Dose) 20 ml 1X ONCE IJ Last administered on 08/01/18at 15:30; Start 08/01/18 at 15:30; Stop 08/01/18 at 15:31; Status DC Heparin Sodium (Porcine) (Hep Lock Adult) 500 unit 1X ONCE IV Last administered on 08/01/18at 15:30; Start 08/01/18 at 15:30; Stop 08/01/18 at 15:31; Status DC Info (Tpn Per Pharmacy) 1 each PRN DAILY PRN MC SEE COMMENTS Last administered on 08/02/18at 08:49; Start 08/01/18 at 16:30 Sodium Chloride 1,000 ml @ 1,000 mls/hr Q1H PRN IV hypotension; Start 08/02/18 at 08:14; Stop 08/02/18 at 14:13 Heparin Sodium (Porcine) (Heparin Sodium) 2,000 unit 1X PRN PRN INT CAT AP catheter pack; Start 08/02/18 at 08:15; Stop 08/03/18 at 08:14 Heparin Sodium (Porcine) (Heparin Sodium) 2,000 unit 1X PRN PRN INT CAT PROBATION OFFICER catheter pack; Start 08/02/18 at 08:15; Stop 08/03/18 at 08:14 Info (PHARMACY MONITORING -- do not chart) 1 each PRN DAILY PRN MC SEE COMMENTS ; Start 08/02/18 at 08:15; Status UNV Info (PHARMACY MONITORING -- do not chart) 1 each PRN DAILY PRN MC SEE COMMENTS ; Start 08/02/18 at 08:15 Sodium Chloride 90 meq/Sodium Phosphate 13.6 mmol/Potassium Chloride 50 meq/ Magnesium Sulfate 10 meq/ Multivitamins 10 ml/Chromium/ Copper/Manganese/ Seleni /Zn 1 ml/ Total Parenteral Nutrition/Amino Acids/Dextrose/ Fat Emulsion Intravenous 1,008 ml @ 42 mls/hr TPN CONT IV ; Start 08/02/18 at 22:00; Stop at 21:59 Active Scripts Active Reported Dialyvite Tablet (Folic Acid/Vitamin B Comp W-C) 1 Each Tablet 1 Each PO QPM QPM @ 1900 [hectorol] QTUTHSA [epogen] QTUTHSA Mirtazapine 15 Mg Tablet 1 Tab PO QHS Zoloft (Sertraline Hcl) 100 Mg Tablet 1 Tab PO DAILY Requip (Ropinirole Hcl) 1 Mg Tablet 3 Mg PO BID Mirtazapine 15 Mg Tablet 1 Tab PO QHS Megestrol Acetate 40 Mg Tablet 40 Mg PO BID Vitals/I & O Vital Sign - Last 24 Hours 08/01/18 08/01/18 08/01/18 08/01/18 14:37 19:00 20:00 22:30 Temp 97.8 97.8 98.1 97.8 97.8 98.1 Pulse 79 79 81 Resp 18 21 18 B/P (MAP) 135/69 (91) 188/87 (120) 139/73 (95) Pulse Ox 95 98 96 O2 Delivery Room Air Room Air Room Air Room Air 08/02/18 08/02/18 08/02/18 02:46 06:55 13:04 Temp 97.7 98.6 97.7 98.6 Pulse 84 84 88 Resp 18 17 B/P (MAP) 171/73 (105) 196/86 (122) 162/78 Pulse Ox 94 95 O2 Delivery Room Air Room Air Intake and Output 08/01/18 08/01/18 08/02/18 15:00 23:00 07:00 Intake Total 1250 ml 50 ml Balance 1250 ml 50 ml Nutrition Consultation Dietary Evaluation: Recommendations by RD: PPN/TPN, Add supplement feedings Comments: day 13 PPN - REC d/c continue Diet per FOOT SPECIALIST, renal and encourage intake of renal suppelements pt to d/c today Expected Outcomes/Goals: po intake to improve to 50% of meals- goal ongoing Interpretation of weight loss: >1-2% in 1 week Malnutrition Findings: Food and Nutrition Intake (Sev: <50% est energy req 5days Body Fat Depletion (Non Severe: Mod to Severe Weight Status: Underweight TESS BOURNE MD Aug 02, 2018 13:40
[2018-08-02 15:15] VITALS: BP 186/82
[2018-08-02] MEDS: VANCOMYCIN 500 MG in IV NORMAL SALINE 100ML 100 ML IV SCH (16:32)
[2018-08-02] MEDS: FOLIC/VIT B COMP W-C (RENAL) TABLET. PO SCH (16:32)
[2018-08-02 19:00] VITALS: BP 182/75
[2018-08-02] MEDS: MIRTAZAPINE 15 MG TABLET PO SCH (20:52)
[2018-08-02] MEDS ORDERED: DEXTROSE 70% IV SCH ×9 (22:00)
[2018-08-02] MEDS ORDERED: TOTAL PARENTERAL NUTRITION IV SCH ×9 (22:00)
[2018-08-02] MEDS ORDERED: [UNRECOGNIZED DRUG - OTHER] IV SCH ×9 (22:00)
[2018-08-02] MEDS ORDERED: AMINO ACID IV SCH ×9 (22:00)
[2018-08-02 22:52] VITALS: BP 177/66
[2018-08-03 03:00] VITALS: BP 174/85
[2018-08-03] MEDS: VANCOMYCIN 125 MG/2.5 ML ORAL SOLUTION. PO SCH ×4 (06:00→23:57)
[2018-08-03] MEDS: IPRATRPIUM/ALBUTEROL 0.5/2.5MG 3 ML NEBU. NEB SCH ×2 (06:53→20:22)
[2018-08-03 07:00] VITALS: BP 177/88
--- NOTE | 2018-08-03 10:17 | PDOC ---
Infectious Disease Note Subjective Subjective "I'm trying to get it together," not feeling good, has a stomachache TPN + diarrhea Denies N/V/F/C/S/SOA ROS ROS per HPI Vital Sign Vital Signs Vital Signs Date Time Temp Pulse Resp B/P (MAP) Pulse Ox O2 Delivery O2 Flow Rate FiO2 08/03/18 07:00 97.7 94 18 177/88 (117) 94 Room Air 97.7 Physical Exam PHYSICAL EXAM GENERAL: Lying down, NAD HEENT: Normal conjunctivae. + dentures NECK: Supple. LUNGS: Clear to auscultation. HEART: S1, S2. ABDOMEN: Soft and nontender. No guarding or rebound. EXTREMITIES: No clubbing, cyanosis or gross edema. SKIN: Warm to touch, no signs of rash. NEUROLOGIC: Awake, responds appropriately Right chest hemodialysis catheter (07/23) clean Left-chest central line (08/01)clean Labs Micro 07/24. BLOOD CULTURE Preliminary NO GROWTH AFTER 2 DAYS Objective Assessment MRSA bacteremia POA 07/14 (R tetra) - repeat BC 07/18 and 07/20 positive, BC neg from 07/24 and 07/28 - 2D echo neg vegetation; on 07/24 RAMON showed HD catheter w/ large mobile vegetation or thrombus (measuring at least 2.5 x 1.1 cm) extending into the RA. -s/p tunneled HDC line removal on 07/18. s/p replacement 07/23 C. difficile from 07/16 positive Thrush - better Anemia - S/p PRBCs Leukocytosis - better CKD on HD Severe Protein malnutrition - TPN Failure to thrive. Plan Plan of Care Cont po/IV Vanc postdialysis IV Ceftaroline - wean off soon Probiotics scheduler maintenance care CBC in am Will need at least six weeks of IV antibiotics Patient seen, examined, I agree with above. Assessment and plan was co formulated with YARD SPECIALIST. TEVIN HOYOS APRN Aug 03, 2018 10:17 GIANFRANCO GOLD MD Aug 03, 2018 14:41
[2018-08-03 10:36] VITALS: BP 174/86
[2018-08-03 10:38] LABS: CALCIUM 8.9 mg/dL (8.5-10.1); CREATININE 1.5 mg/dL (0.6-1.0); GFR 34.2; MAGNESIUM 2.6 mg/dL (1.8-2.4); PHOSPHORUS 1.7 mg/dL (2.6-4.7)
[2018-08-03 10:40] LABS: POTASSIUM 4.9 mmol/L (3.5-5.1)
[2018-08-03] MEDS: MEGESTROL 20 MG TABLET. PO SCH ×2 (10:49→21:10)
[2018-08-03] MEDS: VITAMIN B12,B9,B6 COMPLEX 1 TABLET. PO SCH ×2 (10:49→18:16)
[2018-08-03] MEDS: rOPINIRole 1 MG TABLET. PO SCH ×2 (10:49→21:10)
[2018-08-03] MEDS: LACTOBACILLUS RHAMNOSUS GG 1 CAPSULE. PO SCH ×2 (10:49→21:10)
[2018-08-03] MEDS: SERTRALINE 50 MG TABLET. PO SCH (10:50)
[2018-08-03] MEDS: amLODIPine BESYLATE 10 MG TABLET PO SCH (10:50)
[2018-08-03] MEDS: NYSTATIN 100,000 UNIT/GM TOPICAL CREAM 15GM TUBE. TP SCH ×2 (10:52→21:11)
[2018-08-03] MEDS: TPN PER PHARMACY MC PRN ×2 (11:00→11:13)
--- NOTE | 2018-08-03 11:11 | NUR ---
Pharmacy TPN Dosing Note S: TYLER GUTIERREZ is a 72 year old F Currently receiving Central Continuous TPN started 08/02/18 B:Pertinent PMH: Malnutrition, poor PO intake Height: 5 feet, 3 inches Weight: 51.8 kg Current diet: regular LABS: Sodium: 138 Potassium: 4.9 Chloride: 104 Calcium: 8.9 Corrected Calcium: 11.14 Magnesium: 2.6 CO2: 21 SCr: 1.5 Glucose: 143 Albumin: 1.2 AST: 15 ALT: 8 TPN FORMULA: TPN TYPE: Central Continuous AMINO ACIDS: 60 gm DEXTROSE: 195 gm LIPIDS: 20 gm SODIUM CHLORIDE: 90 mEq SODIUM PHOSPHATE: 20 mmol POTASSIUM CHLORIDE: 50 mEq MAGNESIUM: 5 mEq MULTIPLE VITAMIN: 10 ml TRACE ELEMENTS: MTE5 1 ml(s) TPN PLAN: 15mmol NaPhos IVPB x1 ordered for low phos level. Magnesium in TPN reduced and sodium phos increased. No adjustment made to potassium for now as lab noted specimen to be slightly hemolyzed. R: Change TPN per plan and ordered formula Will monitor electrolytes, glucose, and tolerance to TPN. Dayna Gomes [facility], 08/03/18 [id number]
[2018-08-03] MEDS: VANCOMYCIN PER PHARMACY MC PRN (11:14)
[2018-08-03] MEDS ORDERED: SODIUM PHOSPHATE 15 MMOL in IV DEXTROSE 5% 250 ML IV ONE (11:30)
[2018-08-03] MEDS: CEFTAROLINE FOSAMIL IV SCH ×2 (11:34→21:21)
[2018-08-03] MEDS: NORMAL SALINE IV SCH ×2 (11:34→21:21)
--- NOTE | 2018-08-03 12:19 | PDOC ---
PROGRESS NOTES Chief Complaint Chief Complaint Staph bacteremia 2D echo neg vegetation; on 07/24 RAMON showed HD catheter w/ large mobile vegetation or thrombus (measuring at least 2.5 x 1.1 cm) extending into the RA. -s/p tunneled HDC line removal on 07/18. s/p replacement 07/23 C. difficile from 07/16 positive ESRD on dialysis Anemia of ESRD Leukocytosis/sepsis C. difficile diarrhea improved DNR Hyponatremia secondary to low effective circulatory volume resolved Hypokalemia replacing as per nephrology Vascular dementia HTN Anxiety Depression noncompliance with PT/OT Severe protein calorie malnutrition due to poor oral intake Severe deconditioning that will require placement PLAN: Cont vanc iv and oral HD per renal supportive care encourage as much activity as tolerated follow cultures DNR pt/ot NEW PERMCATH placed on 07/28 Patient opted for TPN awaiting to be started. discharge soon once bed available at [facility] History of Present Illness History of Present Illness No fever, WBC resolved Hemoglobin stable status post transfusion. On contact Isol because of bacteremia and C. difficile positivity Palliative note reviewed, patient wishes to continue dialysis 07/25 Earlier entry: 72 yo f w/ PMHx CVA with vascular dementia, HTN, anxiety, depression, end-stage renal disease on dialysis Saturday, Saturday, (new dx 2018), last dialyzed on Saturday who p/w fever, decreased appetite, fever, decreased energy/ weakness, symptoms began 3 days ago. Found with Hb of 5.6 in ED, transfused PRBC to 7.5. She was noted with loose stools as well. She has history dementia but she is alert to person only, but is able to carry on a conversation and give some health history. She does not refuse dialysis every day. She was seen here this past January 2018 and May 2018 and sent home with home health ([facility]). She has a DPOA, Ivy the nephew has been texting who has been informed of hospital admission. 07/15: Seen on dialysis today. She has some chills with this. Notably, lab called about 3/4 bottles positive on blood culture for GPC in clusters. 07/16: Feeling terrible today. Has diarrhea x2 POSITIVE FOR C. DIFFICILE. She has bilateral LQ pain. Started on oral vancomycin and continued on IV Vancomycin 07/17: Still with poor PO intake 07/18: HD catheter pulled. Culture looks like MRSA 07/19: Still not eating, started PPN. Still with repeat blood cultures 1/4 bottles positive 07/21 DECISION FOR PALLIATIVE CARE Needed GRAM POSITIVE COCCI IN CLUSTERS, SUGGESTIVE OF STAPH, IN 4 OF 5 BOTTLES, 3 SETS DRAWN ON 07/20/18. ALL 3 SETS ARE POSITIVE. Still with some loose stools. Positive / repeat blood cultures after line was pulled. Denies SOB and CP. She does have some catheter site pain where it was pulled. 07/25 NONCOMPLIANT WITH PT/OT, BLOOD CUL PENDING, REPEAT, high risk of complications due to noncompliance per my personal review of chart 07/26 PERMCATH NONFUNCTIONAL. NEW PERMCATH SATURDAY refusing to eat lunch today, bp uncontrolled 07/27 still not eating well, noncompliant 07/28 NOT IMPROVED FAR COMPLIANCE, POOR APPETITE 07/28 Problem List (body system elements) * Impaired fnctnl mobility * Strength * Balance * Knowledge-safe techniques NEEDS SNF 07/29 Patient with no acute events reported overnight, patient with improving appetite, will see how much she is able to eat today and hopefully wean off procalamine. No fever chills diaphoresis reported. 07/30 patient with no acute events reported overnight. Continues to try to eat a little bit more, but still very debilitated. Reassurances been provided her diarrhea is slowly improving 07/31 patient very lethargic after dialysis seems to be her usual norm as per nursing staff, she is not eating much of her meals will readdress her nutritional status once she is more receptive for a conversation. 08/01 discussed nutritional status once again and will have a response later in the day once she has weighed in the pros and cons I have explained in detail regarding TPN, dobhoff tube and PEG tube options 08/02 patient will be started on TPN later in the day , seen during dailysis, no complaints, very debilitated unfortunately 08/03 no new complaints, patient hemodynamically stable, discussed with nursing staff, we will start making arrangements for transfer to SNF Vitals Vitals Vital Signs Date Time Temp Pulse Resp B/P (MAP) Pulse Ox O2 Delivery O2 Flow Rate FiO2 08/03/18 10:50 95 174/86 08/03/18 10:36 97.8 18 92 Room Air 97.8 Physical Exam Physical Exam GENERAL: Lying down, NAD HEENT: Normal conjunctivae. + dentures NECK: Supple. LUNGS: Clear to auscultation. HEART: S1, S2. ABDOMEN: Soft and nontender. No guarding or rebound. EXTREMITIES: No clubbing, cyanosis or gross edema. SKIN: Warm to touch, no signs of rash. NEUROLOGIC: Awake, responds appropriately Right chest hemodialysis catheter (07/23) clean Left-chest central line (08/01)clean General: Alert, Oriented X3, No acute distress, Other (poorly oriented) Heart: Regular rate, Normal S1 Lungs: Clear Abdomen: Normal bowel sounds, Soft, No tenderness Extremities: No clubbing, No cyanosis, Normal pulses Skin: No rashes, No significant lesion Labs LABS Laboratory Tests Test 08/03/18 09:50 Sodium Level 138 mmol/L (136-145) Potassium Level 4.9 mmol/L (3.5-5.1) Chloride Level 104 mmol/L (98-107) Carbon Dioxide Level 21 mmol/L (21-32) Anion Gap 13 (6-14) Blood Urea Nitrogen 15 mg/dL (7-20) Creatinine 1.5 mg/dL (0.6-1.0) Estimated GFR (Cockcroft-Gault) 34.2 Glucose Level 143 mg/dL (70-99) Calcium Level 8.9 mg/dL (8.5-10.1) Phosphorus Level 1.7 mg/dL (2.6-4.7) Magnesium Level 2.6 mg/dL (1.8-2.4) Assessment and Plan Assessmemt and Plan Problems Medical Problems: (1) End stage renal disease Status: Acute (2) Generalized weakness Status: Acute Comment Review of Relevant I have reviewed the following items linda (where applicable) has been applied. Labs Laboratory Tests Test 08/02/18 05:45 08/03/18 09:50 Sodium Level 134 mmol/L (136-145) 138 mmol/L (136-145) Potassium Level 3.7 mmol/L (3.5-5.1) 4.9 mmol/L (3.5-5.1) Chloride Level 99 mmol/L (98-107) 104 mmol/L (98-107) Carbon Dioxide Level 26 mmol/L (21-32) 21 mmol/L (21-32) Anion Gap 9 (6-14) 13 (6-14) Blood Urea Nitrogen 18 mg/dL (7-20) 15 mg/dL (7-20) Creatinine 2.1 mg/dL (0.6-1.0) 1.5 mg/dL (0.6-1.0) Estimated GFR (Cockcroft-Gault) 23.2 34.2 BUN/Creatinine Ratio 9 (6-20) Glucose Level 97 mg/dL (70-99) 143 mg/dL (70-99) Calcium Level 8.9 mg/dL (8.5-10.1) 8.9 mg/dL (8.5-10.1) Phosphorus Level 1.6 mg/dL (2.6-4.7) 1.7 mg/dL (2.6-4.7) Magnesium Level 2.0 mg/dL (1.8-2.4) 2.6 mg/dL (1.8-2.4) Total Bilirubin 0.2 mg/dL (0.2-1.0) Aspartate Amino Transf (AST/SGOT) 15 U/L (15-37) Alanine Aminotransferase (ALT/SGPT) 8 U/L (14-59) Alkaline Phosphatase 104 U/L (46-116) Total Protein 5.8 g/dL (6.4-8.2) Albumin 1.2 g/dL (3.4-5.0) Albumin/Globulin Ratio 0.3 (1.0-1.7) Random Vancomycin Level 17.7 mcg/mL Laboratory Tests Test 08/03/18 09:50 Sodium Level 138 mmol/L (136-145) Potassium Level 4.9 mmol/L (3.5-5.1) Chloride Level 104 mmol/L (98-107) Carbon Dioxide Level 21 mmol/L (21-32) Anion Gap 13 (6-14) Blood Urea Nitrogen 15 mg/dL (7-20) Creatinine 1.5 mg/dL (0.6-1.0) Estimated GFR (Cockcroft-Gault) 34.2 Glucose Level 143 mg/dL (70-99) Calcium Level 8.9 mg/dL (8.5-10.1) Phosphorus Level 1.7 mg/dL (2.6-4.7) Magnesium Level 2.6 mg/dL (1.8-2.4) Microbiology 07/28/18 Blood Culture - Final, Complete NO GROWTH AFTER 5 DAYS 07/14/18 Urine Culture - Final, Complete 07/14/18 Urine Culture Result 1 (MARYANN) - Final, Complete Medications Current Medications Piperacillin Sod/ Tazobactam Sod 4.5 gm/Sodium Chloride 100 ml @ 200 mls/hr 1X ONCE IV Last administered on 07/14/18at 15:58; Start 07/14/18 at 15:00; Stop 07/14/18 at 15:29; Status DC Vancomycin HCl (Vanco Per Pharmacy) 1 each PRN DAILY PRN MC SEE COMMENTS Last administered on 08/03/18 11:14; Start 07/14/18 at 14:45 Vancomycin HCl 1.25 gm/Sodium Chloride 250 ml @ 166.667 mls/hr 1X ONCE IV Last administered on 07/14/18 18:10; Start 07/14/18 at 15:00; Stop 07/14/18 at 16:29; Status DC Ondansetron HCl (Zofran) 4 mg PRN Q8HRS PRN IV NAUSEA/VOMITING; Start 07/14/18 at 17:15; Stop 07/15/18 at 17:14; Status DC Morphine Sulfate (Morphine Sulfate) 2 mg PRN Q2HR PRN IV PAIN; Start 07/14/18 at 17:15; Stop 07/15/18 at 17:14; Status DC Acetaminophen (Tylenol) 650 mg PRN Q4HRS PRN PO FEVER; Start 07/14/18 at 17:15 ; Stop 07/15/18 at 17:14; Status DC Vancomycin HCl (Vancomycin Random Level) 1 each 1X ONCE MC ; Start 07/15/18 at 06:00; Stop 07/15/18 at 06:01; Status DC Vitamin B Complex/ Vitamin C (Dinorah-Ralph) 1 tab QPM PO Last administered on 16:32; Start 07/15/18 at 18:00 Megestrol Acetate (Megace) 40 mg BID PO Last administered on 08/03/18 10:49; Start 07/15/18 at 09:00 Mirtazapine (Remeron) 15 mg QHS PO Last administered on 08/02/18 20:52; Start 07/14/18 at 22:00 Non-Formulary Medication (Mirtazapine ) 1 tab QHS PO ; Start 07/15/18 at 21:00; Status UNV Ropinirole HCl (Requip) 3 mg BID PO Last administered on 07/16/18at 18:21; Start 07/14/18 at 22:00; Stop 07/16/18 at 19:54; Status DC Sertraline HCl (Zoloft) 100 mg DAILY PO Last administered on 08/03/18 10:50; Start 07/15/18 at 09:00 Phytonadione (Mephyton Oral Soln) 5 mg 1X ONCE PO Last administered on 22:14; Start 07/14/18 at 22:00; Stop 07/14/18 at 22:01; Status DC Vitamin B Complex (Folbic Tablet) 1 tab DAILY PO Last administered on 10:49; Start 07/15/18 at 09:00 Albuterol/ Ipratropium (Duoneb) 3 ml RTBID NEB Last administered on 08/03/18 06:53; Start 07/15/18 at 08:00 Sodium Chloride 1,000 ml @ 1,000 mls/hr Q1H PRN IV hypotension; Start 07/15/18 at 10:48; Stop 07/15/18 at 16:47; Status DC Albumin Human 200 ml @ 200 mls/hr 1X PRN PRN IV Hypotension; Start 07/15/18 at 11:00; Stop 07/15/18 at 16:59; Status DC Sodium Chloride 1,000 ml @ 400 mls/hr Q2H30M PRN IV PATENCY; Start 07/15/18 at 10:48; Stop 07/15/18 at 22:47; Status DC Info (PHARMACY MONITORING -- do not chart) 1 each PRN DAILY PRN MC SEE COMMENTS ; Start 07/15/18 at 11:00; Status UNV Info (PHARMACY MONITORING -- do not chart) 1 each PRN DAILY PRN MC SEE COMMENTS ; Start 07/15/18 at 11:00; Stop 07/22/18 at 14:31; Status DC Vancomycin HCl 500 mg/Sodium Chloride 100 ml @ 100 mls/hr QTUTHSA IV Last administered on 07/17/18at 16:44; Start 07/17/18 at 16:00; Stop 07/18/18 at 15:41 ; Status DC Lactobacillus Rhamnosus (Culturelle) 1 cap BID PO Last administered on 10:49; Start 07/16/18 at 21:00 Clotrimazole (Mycelex) 10 mg 5XDAY MM Last administered on 07/28/18at 05:48; Start 07/16/18 at 14:00; Stop 07/28/18 at 14:13; Status DC Ropinirole HCl (Requip) 3 mg DAILY PO Last administered on 08/03/18at 10:49; Start 07/17/18 at 09:00 Ropinirole HCl (Requip) 2 mg QHS PO Last administered on 08/02/18 20:52; Start 07/16/18 at 21:00 Ropinirole HCl (Requip) 1 mg PRN QEVNG PRN PO RLS Last administered on 17:46; Start 07/16/18 at 20:00 Vancomycin HCl (Vancomycin Oral Solution) 125 mg Q6HRS PO Last administered on 08/03/18at 10:55; Start 07/17/18 at 00:00 Sodium Chloride 1,000 ml @ 1,000 mls/hr Q1H PRN IV hypotension; Start 07/17/18 at 14:55; Stop 07/17/18 at 20:54; Status DC Sodium Chloride 1,000 ml @ 400 mls/hr Q2H30M PRN IV PATENCY; Start 07/17/18 at 14:55; Stop 07/18/18 at 02:54; Status DC Info (PHARMACY MONITORING -- do not chart) 1 each PRN DAILY PRN MC SEE COMMENTS ; Start 07/17/18 at 15:00; Stop 07/17/18 at 15:00; Status DC Info (PHARMACY MONITORING -- do not chart) 1 each PRN DAILY PRN MC SEE COMMENTS ; Start 07/17/18 at 15:00; Stop 07/17/18 at 15:00; Status DC Sodium Chloride 1,000 ml @ 1,000 mls/hr Q1H PRN IV hypotension; Start 07/18/18 at 11:30; Stop 07/18/18 at 17:29; Status DC Sodium Chloride 1,000 ml @ 400 mls/hr Q2H30M PRN IV PATENCY; Start 07/18/18 at 11:30; Stop 07/18/18 at 23:29; Status DC Info (PHARMACY MONITORING -- do not chart) 1 each PRN DAILY PRN MC SEE COMMENTS ; Start 07/18/18 at 12:30; Status UNV Info (PHARMACY MONITORING -- do not chart) 1 each PRN DAILY PRN MC SEE COMMENTS ; Start 07/18/18 at 12:30; Status UNV Vancomycin HCl 500 mg/Sodium Chloride 100 ml @ 100 mls/hr 1X ONCE IV Last administered on 07/18/18at 16:40; Start 07/18/18 at 16:00; Stop 07/18/18 at 16:59 ; Status DC Amino Acids/ Glycerin/ Electrolytes 1,000 ml @ 80 mls/hr [id number] IV Last administered on 08/02/18at 16:31; Start 07/19/18 at 11:45; Stop 08/02/18 at 21:59; Status DC Potassium Chloride (Klor-Con) 40 meq AFTRNOON PO Last administered on 08/02/18at 13:07; Start 07/19/18 at 13:00 Vancomycin HCl 500 mg/Sodium Chloride 100 ml @ 100 mls/hr 1X ONCE IV ; Start 07/21/18 at 16:00; Stop 07/21/18 at 16:59; Status Cancel Acetaminophen/ Hydrocodone Bitart (Lortab 5/325) 1 tab PRN Q6HRS PRN PO SEVERE PAIN; Start 07/19/18 at 20:00 Sodium Chloride 1,000 ml @ 1,000 mls/hr Q1H PRN IV hypotension; Start 07/21/18 at 12:29; Stop 07/21/18 at 18:28; Status DC Sodium Chloride (Normal Saline Flush) 10 ml 1X PRN PRN IV AP catheter pack; Start 07/21/18 at 12:30; Stop 07/22/18 at 12:29; Status DC Sodium Chloride (Normal Saline Flush) 10 ml 1X PRN PRN IV [employer] catheter pack; Start 07/21/18 at 12:30; Stop 07/22/18 at 12:29; Status DC Sodium Chloride 1,000 ml @ 400 mls/hr Q2H30M PRN IV PATENCY; Start 07/21/18 at 12:29; Stop 07/22/18 at 00:28; Status DC Info (PHARMACY MONITORING -- do not chart) 1 each PRN DAILY PRN MC SEE COMMENTS ; Start 07/21/18 at 12:30; Status UNV Info (PHARMACY MONITORING -- do not chart) 1 each PRN DAILY PRN MC SEE COMMENTS ; Start 07/21/18 at 12:30; Status Cancel Vancomycin HCl 750 mg/Sodium Chloride 250 ml @ 250 mls/hr 1X ONCE IV ; Start 07/21/18 at 16:00; Stop 07/21/18 at 16:59; Status Cancel Vancomycin HCl 500 mg/Sodium Chloride 100 ml @ 100 mls/hr 1X ONCE IV Last administered on 07/21/18at 21:35; Start 07/21/18 at 18:30; Stop 07/21/18 at 19:29 ; Status DC Lidocaine/ Epinephrine (LIDOCAINE 1%-EPI 1:100,000 Multi-Dose) 20 ml STK-MED ONCE .ROUTE ; Start 07/22/18 at 11:46; Stop 07/22/18 at 11:47; Status DC Cefazolin Sodium 50 ml @ As Directed STK-MED ONCE IV ; Start 07/22/18 at 12:45; Stop 07/22/18 at 12:46; Status DC Midazolam HCl (Versed) 2 mg STK-MED ONCE .ROUTE ; Start 07/22/18 at 12:45; Stop 07/22/18 at 12:46; Status DC Fentanyl Citrate (Fentanyl 2ml Vial) 100 mcg STK-MED ONCE .ROUTE ; Start at 12:45; Stop 07/22/18 at 12:46; Status DC Vancomycin HCl 500 mg/Sodium Chloride 100 ml @ 100 mls/hr QTUTHSA IV Last administered on 07/24/18at 18:27; Start 07/22/18 at 16:00; Stop 07/26/18 at 14:45 ; Status DC Midazolam HCl (Versed) 2 mg 1X ONCE IV Last administered on 07/22/18at 13:28; Start 07/22/18 at 13:30; Stop 07/22/18 at 13:31; Status DC Fentanyl Citrate (Fentanyl 2ml Vial) 100 mcg 1X ONCE IV Last administered on at 13:27; Start 07/22/18 at 13:30; Stop 07/22/18 at 13:31; Status DC Lidocaine HCl (Lidocaine 1% 20ml Vial) 20 ml 1X ONCE INJ Last administered on 07/22/18at 13:27; Start 07/22/18 at 13:30; Stop 07/22/18 at 13:31; Status DC Ceftaroline Fosamil 400 mg/ Sodium Chloride 250 ml @ 250 mls/hr Q12HR IV Last administered on 08/03/18at 11:34; Start 07/22/18 at 14:00 Darbepoetin Avery (Aranesp) 60 mcg [id number] SQ Last administered on 07/29/18at 20: 23; Start 07/22/18 at 21:00 Sodium Chloride 1,000 ml @ 1,000 mls/hr Q1H PRN IV hypotension; Start 07/22/18 at 15:20; Stop 07/22/18 at 21:19; Status DC Albumin Human 200 ml @ 200 mls/hr 1X PRN PRN IV Hypotension; Start 07/22/18 at 15:30; Stop 07/22/18 at 21:29; Status DC Acetaminophen (Tylenol) 500 mg 1X PRN PRN PO MILD PAIN / TEMP; Start 07/22/18 at 15:30; Stop 07/23/18 at 15:29; Status DC Diphenhydramine HCl (Benadryl) 25 mg 1X PRN PRN IV ITCHING; Start 07/22/18 at 15:30; Stop 07/23/18 at 15:29; Status DC Diphenhydramine HCl (Benadryl) 25 mg 1X PRN PRN IV ITCHING; Start 07/22/18 at 15:30; Stop 07/23/18 at 15:29; Status DC Sodium Chloride (Normal Saline Flush) 10 ml 1X PRN PRN IV AP catheter pack; Start 07/22/18 at 15:30; Stop 07/23/18 at 15:29; Status DC Sodium Chloride (Normal Saline Flush) 10 ml 1X PRN PRN IV [employer] catheter pack; Start 07/22/18 at 15:30; Stop 07/23/18 at 15:29; Status DC Sodium Chloride 1,000 ml @ 400 mls/hr Q2H30M PRN IV PATENCY; Start 07/22/18 at 15:20; Stop 07/23/18 at 03:19; Status DC Info (PHARMACY MONITORING -- do not chart) 1 each PRN DAILY PRN MC SEE COMMENTS ; Start 07/22/18 at 15:30; Stop 07/22/18 at 15:30; Status DC Sodium Chloride 1,000 ml @ 1,000 mls/hr Q1H PRN IV hypotension; Start 07/23/18 at 07:00; Stop 07/23/18 at 12:59; Status DC Sodium Chloride 1,000 ml @ 400 mls/hr Q2H30M PRN IV PATENCY; Start 07/23/18 at 07:00; Stop 07/23/18 at 18:59; Status DC Info (PHARMACY MONITORING -- do not chart) 1 each PRN DAILY PRN MC SEE COMMENTS ; Start 07/23/18 at 09:00; Status UNV Info (PHARMACY MONITORING -- do not chart) 1 each PRN DAILY PRN MC SEE COMMENTS ; Start 07/23/18 at 09:00; Stop 08/03/18 at 08:27; Status DC Labetalol HCl (Normodyne Iv Push) 10 mg PRN Q2HR PRN IVP HYPERTENSION, SEE COMMENTS; Start 07/23/18 at 09:30 Acetaminophen (Tylenol) 500 mg PRN Q6HRS PRN PO MILD PAIN / TEMP; Start at 09:30 Ondansetron HCl (Zofran) 4 mg PRN Q6HRS PRN IV NAUSEA/VOMITING Last administered on 07/26/18at 16:17; Start 07/23/18 at 09:30 Ondansetron HCl (Zofran Odt) 4 mg PRN Q6HRS PRN PO NAUSEA/VOMITING Last administered on 07/26/18at 16:12; Start 07/23/18 at 09:30 Tramadol HCl (Ultram) 50 mg PRN Q6HRS PRN PO MODERATE PAIN; Start 07/23/18 at 09:30 Amlodipine Besylate (Norvasc) 10 mg DAILY PO Last administered on 08/03/18at 10: 50; Start 07/23/18 at 09:00 Ondansetron HCl (Zofran) 4 mg PRN Q6HRS PRN IV NAUSEA/VOMITING; Start 07/24/18 at 07:00; Stop 07/25/18 at 06:59; Status DC Fentanyl Citrate (Fentanyl 2ml Vial) 25 mcg PRN Q5MIN PRN IV MILD PAIN; Start 07/24/18 at 07:00; Stop 07/25/18 at 06:59; Status DC Fentanyl Citrate (Fentanyl 2ml Vial) 50 mcg PRN Q5MIN PRN IV MODERATE TO SEVERE PAIN; Start 07/24/18 at 07:00; Stop 07/25/18 at 06:59; Status DC Ringer's Solution 1,000 ml @ 30 mls/hr Q24H IV ; Start 07/24/18 at 07:00; Stop 07/24/18 at 18:59; Status DC Lidocaine HCl (Xylocaine-Mpf 1% 2ml Vial) 2 ml PRN 1X PRN ID PRIOR TO IV START ; Start 07/24/18 at 07:00; Stop 07/25/18 at 06:59; Status DC Prochlorperazine Edisylate (Compazine) 5 mg PACU PRN PRN IV NAUSEA, MRX1; Start 07/24/18 at 07:00; Stop 07/25/18 at 06:59; Status DC Vancomycin HCl 500 mg/Sodium Chloride 100 ml @ 100 mls/hr ONCE ONCE IV Last administered on 07/23/18at 17:23; Start 07/23/18 at 16:00; Stop 07/23/18 at 16:59 ; Status DC Nystatin (Mycostatin) 1 rolly BID TP Last administered on 08/03/18at 10:52; Start 07/23/18 at 21:00 Benzocaine (Hurricaine One) 1 spray STK-MED ONCE .ROUTE ; Start 07/24/18 at 11: 49; Stop 07/24/18 at 11:50; Status Cancel Lidocaine HCl (Viscous Lidocaine) 15 ml STK-MED ONCE .ROUTE ; Start 07/24/18 at 11:49; Stop 07/24/18 at 11:50; Status DC Lidocaine HCl (Xylocaine 2% Topical 5gm Tube) 1 rolly 1X ONCE TP ; Start at 12:00; Stop 07/24/18 at 12:01; Status DC Lidocaine HCl (Viscous Lidocaine) 15 ml 1X ONCE SWSW Last administered on 07/24at 13:12; Start 07/24/18 at 12:00; Stop 07/24/18 at 12:01; Status DC Benzocaine (Hurricaine One) 3 spray 1X ONCE MM Last administered on 07/24/18at 13:11; Start 07/24/18 at 12:00; Stop 07/24/18 at 12:01; Status DC Lidocaine HCl (Glydo (Lidocaine) Jelly) 1 rolly 1X ONCE MM Last administered on 07/24/18at 13:10; Start 07/24/18 at 12:00; Stop 07/24/18 at 12:01; Status DC Sodium Chloride 1,000 ml @ 1,000 mls/hr Q1H PRN IV hypotension; Start 07/24/18 at 13:36; Stop 07/24/18 at 19:35; Status DC Albumin Human 200 ml @ 200 mls/hr 1X PRN PRN IV Hypotension; Start 07/24/18 at 13:45; Stop 07/24/18 at 19:44; Status DC Acetaminophen (Tylenol) 500 mg 1X PRN PRN PO MILD PAIN / TEMP; Start 07/24/18 at 13:45; Stop 07/25/18 at 13:44; Status DC Diphenhydramine HCl (Benadryl) 25 mg 1X PRN PRN IV ITCHING; Start 07/24/18 at 13:45; Stop 07/25/18 at 13:44; Status DC Diphenhydramine HCl (Benadryl) 25 mg 1X PRN PRN IV ITCHING; Start 07/24/18 at 13:45; Stop 07/25/18 at 13:44; Status DC Sodium Chloride (Normal Saline Flush) 10 ml 1X PRN PRN IV AP catheter pack; Start 07/24/18 at 13:45; Stop 07/25/18 at 13:44; Status DC Sodium Chloride (Normal Saline Flush) 10 ml 1X PRN PRN IV [employer] catheter pack; Start 07/24/18 at 13:45; Stop 07/25/18 at 13:44; Status DC Sodium Chloride 1,000 ml @ 400 mls/hr Q2H30M PRN IV PATENCY; Start 07/24/18 at 13:36; Stop 07/25/18 at 01:35; Status DC Info (PHARMACY MONITORING -- do not chart) 1 each PRN DAILY PRN MC SEE COMMENTS ; Start 07/24/18 at 13:45; Stop 07/24/18 at 13:45; Status DC Propofol (Diprivan) 200 mg STK-MED ONCE IV ; Start 07/24/18 at 13:00; Stop at 08:16; Status DC Loperamide HCl (Imodium) 2 mg 1X ONCE PO Last administered on 07/25/18at 12:47; Start 07/25/18 at 11:15; Stop 07/25/18 at 11:16; Status DC Vancomycin HCl 500 mg/Sodium Chloride 100 ml @ 100 mls/hr QTUTHSA IV ; Start at 16:00; Stop 07/29/18 at 16:00; Status DC Vancomycin HCl (Vancomycin Random Level) 1 each 1X ONCE MC Last administered on 07/27/18at 06:00; Start 07/27/18 at 06:00; Stop 07/27/18 at 06:02; Status DC Simethicone (Gas-X) 80 mg PRN AFTMEALHC PRN PO GAS / BLOATING Last administered on 07/26/18at 16:12; Start 07/26/18 at 15:45 Lidocaine/ Epinephrine (LIDOCAINE 1%-EPI 1:100,000 Multi-Dose) 20 ml STK-MED ONCE .ROUTE ; Start 07/28/18 at 10:36; Stop 07/28/18 at 10:37; Status DC Heparin Sodium (Porcine) (Heparin Sodium) 10,000 unit STK-MED ONCE .ROUTE ; Start 07/28/18 at 10:38; Stop 07/28/18 at 10:39; Status DC Heparin Sodium/ Sodium Chloride 0 ml @ As Directed STK-MED ONCE .ROUTE ; Start 07/28/18 at 10:39; Stop 07/28/18 at 10:40; Status DC Sodium Chloride 1,000 ml @ 1,000 mls/hr Q1H PRN IV hypotension; Start 07/28/18 at 12:54; Stop 07/28/18 at 18:53; Status DC Sodium Chloride (Normal Saline Flush) 10 ml 1X PRN PRN IV AP catheter pack; Start 07/28/18 at 13:00; Stop 07/29/18 at 12:59; Status DC Sodium Chloride (Normal Saline Flush) 10 ml 1X PRN PRN IV [employer] catheter pack; Start 07/28/18 at 13:00; Stop 07/29/18 at 12:59; Status DC Info (PHARMACY MONITORING -- do not chart) 1 each PRN DAILY PRN MC SEE COMMENTS ; Start 07/28/18 at 13:00; Status UNV Info (PHARMACY MONITORING -- do not chart) 1 each PRN DAILY PRN MC SEE COMMENTS ; Start 07/28/18 at 13:00; Stop 07/29/18 at 07:20; Status DC Vancomycin HCl 500 mg/Sodium Chloride 100 ml @ 100 mls/hr QMWF IV Last administered on 07/30/18at 16:11; Start 07/28/18 at 16:00; Stop 07/31/18 at 14:28; Status DC Sodium Chloride 1,000 ml @ 1,000 mls/hr Q1H PRN IV hypotension; Start 07/29/18 at 07:02; Stop 07/29/18 at 13:01; Status DC Albumin Human 200 ml @ 200 mls/hr 1X PRN PRN IV Hypotension; Start 07/29/18 at 07:15; Stop 07/29/18 at 13:14; Status DC Acetaminophen (Tylenol) 500 mg 1X PRN PRN PO MILD PAIN / TEMP; Start 07/29/18 at 07:15; Stop 07/30/18 at 07:14; Status DC Diphenhydramine HCl (Benadryl) 25 mg 1X PRN PRN IV ITCHING; Start 07/29/18 at 07 :15; Stop 07/30/18 at 07:14; Status DC Diphenhydramine HCl (Benadryl) 25 mg 1X PRN PRN IV ITCHING; Start 07/29/18 at 07 :15; Stop 07/30/18 at 07:14; Status DC Sodium Chloride 1,000 ml @ 400 mls/hr Q2H30M PRN IV PATENCY; Start 07/29/18 at 07:02; Stop 07/29/18 at 19:01; Status DC Info (PHARMACY MONITORING -- do not chart) 1 each PRN DAILY PRN MC SEE COMMENTS ; Start 07/29/18 at 07:15; Stop 07/29/18 at 07:19; Status DC Sodium Chloride 1,000 ml @ 1,000 mls/hr Q1H PRN IV hypotension; Start 07/31/18 at 08:36; Stop 07/31/18 at 14:35; Status DC Sodium Chloride 1,000 ml @ 400 mls/hr Q2H30M PRN IV PATENCY; Start 07/31/18 at 08:36; Stop 07/31/18 at 20:35; Status DC Info (PHARMACY MONITORING -- do not chart) 1 each PRN DAILY PRN MC SEE COMMENTS ; Start 07/31/18 at 08:45; Status UNV Vancomycin HCl 500 mg/Sodium Chloride 100 ml @ 100 mls/hr QTUTHSA IV Last administered on 08/02/18at 16:32; Start 07/31/18 at 16:00 Vancomycin HCl (Vancomycin Random Level) 1 each 1X ONCE MC Last administered on 08/02/18at 05:00; Start 08/02/18 at 05:00; Stop 08/02/18 at 05:01; Status DC Lidocaine/ Epinephrine (LIDOCAINE 1%-EPI 1:100,000 Multi-Dose) 20 ml STK-MED ONCE .ROUTE ; Start 08/01/18 at 14:59; Stop 08/01/18 at 15:00; Status DC Heparin Sodium (Porcine) (Hep Lock Adult) 500 unit STK-MED ONCE IV ; Start at 14:59; Stop 08/01/18 at 15:00; Status DC Lidocaine/ Epinephrine (LIDOCAINE 1%-EPI 1:100,000 Multi-Dose) 20 ml 1X ONCE IJ Last administered on 08/01/18at 15:30; Start 08/01/18 at 15:30; Stop 08/01/18 at 15:31; Status DC Heparin Sodium (Porcine) (Hep Lock Adult) 500 unit 1X ONCE IV Last administered on 08/01/18at 15:30; Start 08/01/18 at 15:30; Stop 08/01/18 at 15:31; Status DC Info (Tpn Per Pharmacy) 1 each PRN DAILY PRN MC SEE COMMENTS Last administered on 08/03/18at 11:13; Start 08/01/18 at 16:30 Sodium Chloride 1,000 ml @ 1,000 mls/hr Q1H PRN IV hypotension; Start 08/02/18 at 08:14; Stop 08/02/18 at 14:13; Status DC Heparin Sodium (Porcine) (Heparin Sodium) 2,000 unit 1X PRN PRN INT CAT AP catheter pack; Start 08/02/18 at 08:15; Stop 08/03/18 at 08:14; Status DC Heparin Sodium (Porcine) (Heparin Sodium) 2,000 unit 1X PRN PRN INT [employer] catheter pack; Start 08/02/18 at 08:15; Stop 08/03/18 at 08:14; Status DC Info (PHARMACY MONITORING -- do not chart) 1 each PRN DAILY PRN MC SEE COMMENTS ; Start 08/02/18 at 08:15; Status UNV Info (PHARMACY MONITORING -- do not chart) 1 each PRN DAILY PRN MC SEE COMMENTS ; Start 08/02/18 at 08:15 Sodium Chloride 90 meq/Sodium Phosphate 13.6 mmol/Potassium Chloride 50 meq/ Magnesium Sulfate 10 meq/ Multivitamins 10 ml/Chromium/ Copper/Manganese/ Seleni /Zn 1 ml/ Total Parenteral Nutrition/Amino Acids/Dextrose/ Fat Emulsion Intravenous 1,008 ml @ 42 mls/hr TPN CONT IV Last administered on 08/02/18at 22 :04; Start 08/02/18 at 22:00; Stop 08/03/18 at 21:59 Sodium Phosphate 15 mmol/Dextrose 255 ml @ 63.75 mls/ hr 1X ONCE IV Last administered on 08/03/18at 11:35; Start 08/03/18 at 11:30; Stop 08/03/18 at 15:29 Sodium Chloride 90 meq/Sodium Phosphate 20 mmol/ Potassium Chloride 50 meq/ Magnesium Sulfate 5 meq/ Multivitamins 10 ml/Chromium/ Copper/Manganese/ Seleni/ Zn 1 ml/ Total Parenteral Nutrition/Amino Acids/Dextrose/ Fat Emulsion Intravenous 1,008 ml @ 42 mls/hr TPN CONT IV ; Start 08/03/18 at 22:00; Stop 08/04/18 at 21:59 Active Scripts Active Reported Dialyvite Tablet (Folic Acid/Vitamin B Comp W-C) 1 Each Tablet 1 Each PO QPM QPM @ 1900 [hectorol] QTUTHSA [epogen] QTUTHSA Mirtazapine 15 Mg Tablet 1 Tab PO QHS Zoloft (Sertraline Hcl) 100 Mg Tablet 1 Tab PO DAILY Requip (Ropinirole Hcl) 1 Mg Tablet 3 Mg PO BID Mirtazapine 15 Mg Tablet 1 Tab PO QHS Megestrol Acetate 40 Mg Tablet 40 Mg PO BID Vitals/I & O Vital Sign - Last 24 Hours 08/02/18 08/02/18 08/02/18 08/02/18 13:04 15:15 19:00 20:00 Temp 98.0 98.1 98.0 98.1 Pulse 88 79 84 Resp 18 B/P (MAP) 162/78 186/82 (116) 182/75 (110) Pulse Ox 95 97 O2 Delivery Room Air Room Air Room Air 08/02/18 08/02/18 08/03/18 08/03/18 20:37 22:52 03:00 06:53 Temp 97.9 97.9 Pulse 78 88 Resp B/P (MAP) 177/66 (103) 174/85 (114) Pulse Ox 97 95 91 97 O2 Delivery Room Air Room Air Room Air Room Air 08/03/18 08/03/18 08/03/18 07:00 10:36 10:50 Temp 97.7 97.8 97.7 97.8 Pulse 94 95 95 Resp 18 B/P (MAP) 177/88 (117) 174/86 (115) 174/86 Pulse Ox 94 92 O2 Delivery Room Air Room Air Intake and Output 08/02/18 08/02/18 08/03/18 14:59 22:59 06:59 Output Total 0 ml 1 ml Balance 0 ml -1 ml Nutrition Consultation Dietary Evaluation: Recommendations by RD: PPN/TPN, Add supplement feedings Comments: day 13 PPN - REC d/c continue Diet per [employer], renal and encourage intake of renal suppelements pt to d/c today Expected Outcomes/Goals: po intake to improve to 50% of meals- goal ongoing Interpretation of weight loss: >1-2% in 1 week Malnutrition Findings: Food and Nutrition Intake (Sev: <50% est energy req 5days Body Fat Depletion (Non Severe: Mod to Severe Weight Status: Underweight TESS BOURNE MD Aug 03, 2018 12:19
[2018-08-03] MEDS: POTASSIUM CHLORIDE 20 MEQ TABLET.ER. PO SCH (13:00)
[2018-08-03 14:33] VITALS: BP 178/89
[2018-08-03] MEDS: FOLIC/VIT B COMP W-C (RENAL) TABLET. PO SCH (18:48)
[2018-08-03 19:00] VITALS: BP 142/66
[2018-08-03] MEDS: MIRTAZAPINE 15 MG TABLET PO SCH (21:10)
[2018-08-03] MEDS ORDERED: DEXTROSE 70% IV SCH ×9 (22:00)
[2018-08-03] MEDS ORDERED: TOTAL PARENTERAL NUTRITION IV SCH ×9 (22:00)
[2018-08-03] MEDS ORDERED: AMINO ACID IV SCH ×9 (22:00)
[2018-08-03] MEDS ORDERED: [UNRECOGNIZED DRUG - OTHER] IV SCH ×9 (22:00)
[2018-08-03 23:00] VITALS: BP 141/92
[2018-08-04 03:00] VITALS: BP 149/88
[2018-08-04] MEDS: VANCOMYCIN 125 MG/2.5 ML ORAL SOLUTION. PO SCH ×3 (06:25→17:52)
[2018-08-04] MEDS: IPRATRPIUM/ALBUTEROL 0.5/2.5MG 3 ML NEBU. NEB SCH ×2 (06:55→20:31)
[2018-08-04 06:57] LABS: BASO % 0 % (0-3); EOS # 0.3 x10^3/uL (0.0-0.7); EOS % 3 % (0-3); HEMATOCRIT 22.7 % (36.0-47.0); HEMOGLOBIN 7.3 g/dL (12.0-15.5); LYMPH # 0.7 x10^3/uL (1.0-4.8); LYMPH % 7 % (24-48); MEAN CORPUSCULAR HEMOGLOBIN 28 pg (25-35); MEAN CORPUSCULAR HGB CONC 32 g/dL (31-37); MEAN CORPUSCULAR VOLUME 87 fL (79-100); MONO # 0.3 x10^3/uL (0.0-1.1); MONO % 3 % (0-9); NEUT # 8.1 x10^3uL (1.8-7.7); NEUT % 87 % (31-73); PLATELET COUNT 276 x10^3/uL (140-400); RED BLOOD COUNT 2.63 x10^6/uL (3.50-5.40); RED CELL DISTRIBUTION WIDTH 19.2 % (11.5-14.5); WHITE BLOOD COUNT 9.3 x10^3/uL (4.0-11.0)
[2018-08-04 07:00] VITALS: BP 143/86
[2018-08-04 07:28] LABS: ALBUMIN 1.4 g/dL (3.4-5.0); CALCIUM 8.6 mg/dL (8.5-10.1); CREATININE 2.2 mg/dL (0.6-1.0); MAGNESIUM 2.1 mg/dL (1.8-2.4); PHOSPHORUS 3.6 mg/dL (2.6-4.7); POTASSIUM 4.3 mmol/L (3.5-5.1)
[2018-08-04] MEDS: CEFTAROLINE FOSAMIL IV SCH ×2 (09:10→21:59)
[2018-08-04] MEDS: NORMAL SALINE IV SCH ×2 (09:10→21:59)
[2018-08-04] MEDS: rOPINIRole 1 MG TABLET. PO SCH ×3 (09:13→21:58)
[2018-08-04] MEDS: LACTOBACILLUS RHAMNOSUS GG 1 CAPSULE. PO SCH ×3 (09:13→21:58)
[2018-08-04] MEDS: MEGESTROL 20 MG TABLET. PO SCH ×3 (09:14→21:58)
[2018-08-04] MEDS: SERTRALINE 50 MG TABLET. PO SCH (09:14)
[2018-08-04] MEDS: amLODIPine BESYLATE 10 MG TABLET PO SCH (09:14)
[2018-08-04 10:33] LABS: % BANDS 6 % (0-9); % LYMPHS 7 % (24-48); % MONOS 3 % (0-10); % SEGS 84 % (35-66); PLT ESTIMATE ADEQUATE (ADEQUATE)
[2018-08-04 11:00] VITALS: BP 163/86
[2018-08-04 11:19] LABS: CALCIUM PTH 8.2 mg/dL (8.7-10.3); CREATININE PTH 2.06 mg/dL (0.57-1.00); PHOSPHORUS PTH 3.7 mg/dL (2.5-4.5); PTH INTACT 107 pg/mL (15-65)
--- NOTE | 2018-08-04 11:39 | PDOC ---
Infectious Disease Note Subjective Subjective Doing ok but has a stomachache again TPN + diarrhea Denies N/V/F/C/S/SOA ROS ROS o/w neg Vital Sign Vital Signs Vital Signs Date Time Temp Pulse Resp B/P (MAP) Pulse Ox O2 Delivery O2 Flow Rate FiO2 08/04/18 11:00 97.8 94 18 163/86 (111) 92 Room Air 97.8 08/03/18 08:00 4.0 Physical Exam PHYSICAL EXAM GENERAL: Lying down, NAD - awakens HEENT: Normal conjunctivae. + dentures NECK: Supple. LUNGS: Clear to auscultation. HEART: S1, S2. ABDOMEN: Soft and ? mild tender. No guarding or rebound. EXTREMITIES: No clubbing, cyanosis or gross edema. SKIN: Warm to touch, no signs of rash. NEUROLOGIC: Awake, responds appropriately Right chest hemodialysis catheter (07/23) clean Left-chest central line (08/01)clean Labs Lab Laboratory Tests Test 08/04/18 06:15 White Blood Count 9.3 x10^3/uL (4.0-11.0) Red Blood Count 2.63 x10^6/uL (3.50-5.40) Hemoglobin 7.3 g/dL (12.0-15.5) Hematocrit 22.7 % (36.0-47.0) Mean Corpuscular Volume 87 fL (79-100) Mean Corpuscular Hemoglobin 28 pg (25-35) Mean Corpuscular Hemoglobin Concent 32 g/dL (31-37) Red Cell Distribution Width 19.2 % (11.5-14.5) Platelet Count 276 x10^3/uL (140-400) Neutrophils (%) (Auto) 87 % (31-73) Lymphocytes (%) (Auto) 7 % (24-48) Monocytes (%) (Auto) 3 % (0-9) Eosinophils (%) (Auto) 3 % (0-3) Basophils (%) (Auto) 0 % (0-3) Neutrophils # (Auto) 8.1 x10^3uL (1.8-7.7) Lymphocytes # (Auto) 0.7 x10^3/uL (1.0-4.8) Monocytes # (Auto) 0.3 x10^3/uL (0.0-1.1) Eosinophils # (Auto) 0.3 x10^3/uL (0.0-0.7) Basophils # (Auto) 0.0 x10^3/uL (0.0-0.2) Segmented Neutrophils % 84 % (35-66) Band Neutrophils % 6 % (0-9) Lymphocytes % 7 % (24-48) Monocytes % 3 % (0-10) Platelet Estimate Adequate (ADEQUATE) Sodium Level 143 mmol/L (136-145) Potassium Level 4.3 mmol/L (3.5-5.1) Chloride Level 107 mmol/L (98-107) Carbon Dioxide Level 22 mmol/L (21-32) Anion Gap 14 (6-14) Blood Urea Nitrogen 24 mg/dL (7-20) Creatinine 2.2 mg/dL (0.6-1.0) Estimated GFR (Non- 24 (>59) Estimated GFR (Cockcroft-Gault) 22.0 Glucose Level 118 mg/dL (70-99) Calcium Level 8.6 mg/dL (8.5-10.1) Phosphorus Level 3.6 mg/dL (2.6-4.7) Magnesium Level 2.1 mg/dL (1.8-2.4) Albumin 1.4 g/dL (3.4-5.0) Triglycerides Level 69 mg/dL (0-150) EGFR 27 (>59) PTH (Intact) Specimen Description Comment (.) Parathyroid Hormone (Intact) 107 pg/mL (15-65) Calcium (PTH Intact) 8.2 mg/dL (8.7-10.3) Creatinine (PTH Intact) 2.06 mg/dL (0.57-1.00) Phosphorus (PTH Intact) 3.7 mg/dL (2.5-4.5) Micro Microbiology 07/14/18 Blood Culture - Final, Complete Objective Assessment MRSA bacteremia POA 07/14 (R tetra) - repeat BC 07/18 and 07/20 positive, BC neg from 07/24 and 07/28 - 2D echo neg vegetation; on 07/24 RAMON showed HD catheter w/ large mobile vegetation or thrombus (measuring at least 2.5 x 1.1 cm) extending into the RA. -s/p tunneled HDC line removal on 07/18. s/p replacement 07/23 C. difficile from 2/20 positive Thrush - better Anemia - S/p PRBCs Leukocytosis - better CKD on HD Severe Protein malnutrition - TPN Failure to thrive Plan Plan of Care Cont po/IV Vanc postdialysis IV Ceftaroline - wean off soon F/u CT scan Probiotics maintenance fitter care CBC in am Will need at least six weeks of IV antibiotics D/w nursing KISHOR FERRARI MD Aug 04, 2018 11:39
--- NOTE | 2018-08-04 12:17 | RAD ---
CT abdomen pelvis without contrast dated 08/04/2018. No comparison available. CLINICAL INDICATION: Abdominal pain. TECHNIQUE: Contiguous axial imaging the head and pelvis performed without the administration of IV or oral contrast. One or more of the following individualized dose reduction techniques were utilized for this examination: 1. Automated exposure control 2. Adjustment of the mA and/or kV according to patient size 3. Use of iterative reconstruction technique FINDINGS: Limited images of lung bases show moderate-sized bilateral pleural effusions. Consolidation in the lower lobes, likely passive atelectasis. There is mild emphysema. Heart size mildly enlarged. No pericardial effusion. Small hiatal hernia. Solid abdominal viscera not well evaluated in the absence of contrast material. No apparent attenuation abnormality of the liver or spleen. Gallbladder surgically absent. Spleen is mildly enlarged. Pancreas adrenal glands and kidneys are unremarkable. No stone or hydronephrosis. Unopacified GI tract normal in caliber and contour. Possible mild wall thickening of the splenic flexure and descending colon. There is diverticulosis of the sigmoid with no definite sigmoid wall thickening. Abdominal aorta normal in caliber. No lymphadenopathy. Images of pelvis show nondistended urinary bladder. Uterus is surgically absent. There is a small amount of free pelvic fluid. No pelvic adenopathy. Bone windows show no acute findings. Multilevel spondylosis. Evidence prior laminectomy and posterior lateral fusion at L4-L5. IMPRESSION: 1. Mild wall thickening of the descending colon and sigmoid, nonspecific. Consider infectious or inflammatory colitis. 2. Diverticulosis of the sigmoid colon with no definite acute diverticulitis. Evaluation is somewhat limited in the absence of contrast material. 3. Small amount of free pelvic fluid, nonspecific. 4. Moderate size bilateral pleural effusions. Consolidation at both lung bases, likely passive atelectasis. Electronically signed by: Ricki Yanes MD (08/04/2018 12:14 PM) [id number]
--- NOTE | 2018-08-04 12:52 | NUR ---
SW following. Discussed with RN. DANIELE faxed updates and TPN information to [facility]. SW awaiting confirmation of whether pt is accepted or not. Pt is not well enough to discharge today per Dr. Leslie. SW will continue to follow.
[2018-08-04] MEDS: TPN PER PHARMACY MC PRN (13:31)
--- NOTE | 2018-08-04 13:35 | NUR ---
Pharmacy TPN Dosing Note S: TYLER GUTIERREZ is a 72 year old F Currently receiving Central Continuous TPN started 08/02/18 B:Pertinent PMH: Malnutrition, poor PO intake Height: 5 feet, 3 inches Weight: 50.077251 kg Current diet: regular LABS: Sodium: 143 Potassium: 4.3 Chloride: 107 Calcium: 8.9 Corrected Calcium: 10.98 Magnesium: 2.1 CO2: 21 SCr: 1.5 Glucose: 118 Albumin: 1.4 AST: 15 ALT: 8 TPN FORMULA: TPN TYPE: Central Continuous AMINO ACIDS: 60 gm DEXTROSE: 195 gm LIPIDS: 20 gm SODIUM CHLORIDE: 90 mEq SODIUM ACETATE: mEq SODIUM PHOSPHATE: 10 mmol POTASSIUM CHLORIDE: 50 mEq POTASSIUM ACETATE: mEq POTASSIUM PHOSPHATE: mmol MAGNESIUM: 5 mEq CALCIUM: mEq INSULIN: units MULTIPLE VITAMIN: 10 ml TRACE ELEMENTS: MTE 5 1mL ml(s) TPN PLAN: decrease NAPHOS TO 10 MM, PHOSPHATE LEVEL INCREASE FROM 1.7 TO 3.6 . PHOSPHATE 15 MM BOLUS GIVEN YESTERDAY. R: Continue TPN at 42ml/hr Will monitor electrolytes, glucose, and tolerance to TPN. CASSY ESTEVES [facility], 08/04/18 [id number]
--- NOTE | 2018-08-04 14:16 | PDOC ---
PROGRESS NOTES Chief Complaint Chief Complaint Staph bacteremia 2D echo neg vegetation; on 07/24 RAMON showed HD catheter w/ large mobile vegetation or thrombus (measuring at least 2.5 x 1.1 cm) extending into the RA. -s/p tunneled HDC line removal on 07/18. s/p replacement 07/23 C. difficile from 07/16 positive ESRD on dialysis Anemia of ESRD Leukocytosis/sepsis C. difficile diarrhea has recurred Pseudomembranous colitis very likely DNR Hyponatremia secondary to low effective circulatory volume resolved Hypokalemia replacing as per nephrology Vascular dementia HTN Anxiety Depression noncompliance with PT/OT Severe protein calorie malnutrition due to poor oral intake Severe deconditioning that will require placement PLAN: CT of the abdomen and pelvis without contrast We'll check lipase Cont vanc iv and oral HD per renal supportive care encourage as much activity as tolerated follow cultures DNR pt/ot NEW PERMCATH placed on 07/28 Patient opted for TPN awaiting to be started. discharge soon once bed available at SNF History of Present Illness History of Present Illness No fever, WBC resolved Hemoglobin stable status post transfusion. On contact Isol because of bacteremia and C. difficile positivity Palliative note reviewed, patient wishes to continue dialysis 07/25 Earlier entry: 72 yo f w/ PMHx CVA with vascular dementia, HTN, anxiety, depression, end-stage renal disease on dialysis Saturday, Saturday, (new 2018), last dialyzed on Saturday who p/w fever, decreased appetite, fever, decreased energy/ weakness, symptoms began 3 days ago. Found with Hb of 5.6 in ED, transfused PRBC to 7.5. She was noted with loose stools as well. She has history dementia but she is alert to person only, but is able to carry on a conversation and give some health history. She does not refuse dialysis every day. She was seen here this past January 2018 and May 2018 and sent home with home health ([email or web address]). She has a DPOA, Ivy the nephew has been texting who has been informed of hospital admission. 07/15: Seen on dialysis today. She has some chills with this. Notably, lab called about 3/4 bottles positive on blood culture for GPC in clusters. 07/16: Feeling terrible today. Has diarrhea x2 POSITIVE FOR C. DIFFICILE. She has bilateral LQ pain. Started on oral vancomycin and continued on IV Vancomycin 07/17: Still with poor PO intake 07/18: HD catheter pulled. Culture looks like MRSA 07/19: Still not eating, started PPN. Still with repeat blood cultures 1/4 bottles positive 07/21 DECISION FOR PALLIATIVE CARE Needed GRAM POSITIVE COCCI IN CLUSTERS, SUGGESTIVE OF STAPH, IN 4 OF 5 BOTTLES, 3 SETS DRAWN ON 07/20/18. ALL 3 SETS ARE POSITIVE. Still with some loose stools. Positive 2/4 repeat blood cultures after line was pulled. Denies SOB and CP. She does have some catheter site pain where it was pulled. 07/25 NONCOMPLIANT WITH PT/OT, BLOOD CUL PENDING, REPEAT, high risk of complications due to noncompliance per my personal review of chart 07/26 PERMCATH NONFUNCTIONAL. NEW PERMCATH SATURDAY refusing to eat lunch today, bp uncontrolled 07/27 still not eating well, noncompliant 07/28 NOT IMPROVED FAR COMPLIANCE, POOR APPETITE 07/28 Problem List (body system elements) * Impaired fnctnl mobility * Strength * Balance * Knowledge-safe techniques NEEDS SNF 07/29 Patient with no acute events reported overnight, patient with improving appetite, will see how much she is able to eat today and hopefully wean off procalamine. No fever chills diaphoresis reported. 07/30 patient with no acute events reported overnight. Continues to try to eat a little bit more, but still very debilitated. Reassurances been provided her diarrhea is slowly improving 07/31 patient very lethargic after dialysis seems to be her usual norm as per nursing staff, she is not eating much of her meals will readdress her nutritional status once she is more receptive for a conversation. 08/01 discussed nutritional status once again and will have a response later in the day once she has weighed in the pros and cons I have explained in detail regarding TPN, dobhoff tube and PEG tube options 08/02 patient will be started on TPN later in the day , seen during dailysis, no complaints, very debilitated unfortunately 08/03 no new complaints, patient hemodynamically stable, discussed with nursing staff, we will start making arrangements for transfer to SNF 08/04 patient in acute distress secondary to abdominal discomfort. Patient does not percent peritoneal signs but is definitely very tender in her abdomen. No fever or chills reported overnight laboratory data has been reviewed. Concern for recurrence of C. difficile given that she is again having diarrhea Vitals Vitals Vital Signs Date Time Temp Pulse Resp B/P (MAP) Pulse Ox O2 Delivery O2 Flow Rate FiO2 08/04/18 11:00 97.8 94 18 163/86 (111) 92 Room Air 97.8 08/03/18 08:00 4.0 Physical Exam Physical Exam GENERAL: Lying down, NAD - awakens HEENT: Normal conjunctivae. + dentures NECK: Supple. LUNGS: Clear to auscultation. HEART: S1, S2. ABDOMEN: Soft and ? mild tender. No guarding or rebound. EXTREMITIES: No clubbing, cyanosis or gross edema. SKIN: Warm to touch, no signs of rash. NEUROLOGIC: Awake, responds appropriately Right chest hemodialysis catheter (07/23) clean Left-chest central line (08/01)clean General: Alert, Oriented X3, No acute distress, Other (poorly oriented) Heart: Regular rate, Normal S1 Lungs: Clear Abdomen: Normal bowel sounds, Soft, No tenderness Extremities: No clubbing, No cyanosis, Normal pulses Skin: No rashes, No significant lesion Labs LABS Laboratory Tests Test 08/04/18 06:15 White Blood Count 9.3 x10^3/uL (4.0-11.0) Red Blood Count 2.63 x10^6/uL (3.50-5.40) Hemoglobin 7.3 g/dL (12.0-15.5) Hematocrit 22.7 % (36.0-47.0) Mean Corpuscular Volume 87 fL (79-100) Mean Corpuscular Hemoglobin 28 pg (25-35) Mean Corpuscular Hemoglobin Concent 32 g/dL (31-37) Red Cell Distribution Width 19.2 % (11.5-14.5) Platelet Count 276 x10^3/uL (140-400) Neutrophils (%) (Auto) 87 % (31-73) Lymphocytes (%) (Auto) 7 % (24-48) Monocytes (%) (Auto) 3 % (0-9) Eosinophils (%) (Auto) 3 % (0-3) Basophils (%) (Auto) 0 % (0-3) Neutrophils # (Auto) 8.1 x10^3uL (1.8-7.7) Lymphocytes # (Auto) 0.7 x10^3/uL (1.0-4.8) Monocytes # (Auto) 0.3 x10^3/uL (0.0-1.1) Eosinophils # (Auto) 0.3 x10^3/uL (0.0-0.7) Basophils # (Auto) 0.0 x10^3/uL (0.0-0.2) Segmented Neutrophils % 84 % (35-66) Band Neutrophils % 6 % (0-9) Lymphocytes % 7 % (24-48) Monocytes % 3 % (0-10) Platelet Estimate Adequate (ADEQUATE) Sodium Level 143 mmol/L (136-145) Potassium Level 4.3 mmol/L (3.5-5.1) Chloride Level 107 mmol/L (98-107) Carbon Dioxide Level 22 mmol/L (21-32) Anion Gap 14 (6-14) Blood Urea Nitrogen 24 mg/dL (7-20) Creatinine 2.2 mg/dL (0.6-1.0) Estimated GFR (Non- 24 (>59) Estimated GFR (Cockcroft-Gault) 22.0 Glucose Level 118 mg/dL (70-99) Calcium Level 8.6 mg/dL (8.5-10.1) Phosphorus Level 3.6 mg/dL (2.6-4.7) Magnesium Level 2.1 mg/dL (1.8-2.4) Albumin 1.4 g/dL (3.4-5.0) Triglycerides Level 69 mg/dL (0-150) EGFR 27 (>59) PTH (Intact) Specimen Description Comment (.) Parathyroid Hormone (Intact) 107 pg/mL (15-65) Calcium (PTH Intact) 8.2 mg/dL (8.7-10.3) Creatinine (PTH Intact) 2.06 mg/dL (0.57-1.00) Phosphorus (PTH Intact) 3.7 mg/dL (2.5-4.5) Assessment and Plan Assessmemt and Plan Problems Medical Problems: (1) End stage renal disease Status: Acute (2) Generalized weakness Status: Acute Comment Review of Relevant I have reviewed the following items linda (where applicable) has been applied. Labs Laboratory Tests Test 08/03/18 09:50 08/04/18 06:15 Sodium Level 138 mmol/L (136-145) 143 mmol/L (136-145) Potassium Level 4.9 mmol/L (3.5-5.1) 4.3 mmol/L (3.5-5.1) Chloride Level 104 mmol/L (98-107) 107 mmol/L (98-107) Carbon Dioxide Level 21 mmol/L (21-32) 22 mmol/L (21-32) Anion Gap 13 (6-14) 14 (6-14) Blood Urea Nitrogen 15 mg/dL (7-20) 24 mg/dL (7-20) Creatinine 1.5 mg/dL (0.6-1.0) 2.2 mg/dL (0.6-1.0) Estimated GFR (Cockcroft-Gault) 34.2 22.0 Glucose Level 143 mg/dL (70-99) 118 mg/dL (70-99) Calcium Level 8.9 mg/dL (8.5-10.1) 8.6 mg/dL (8.5-10.1) Phosphorus Level 1.7 mg/dL (2.6-4.7) 3.6 mg/dL (2.6-4.7) Magnesium Level 2.6 mg/dL (1.8-2.4) 2.1 mg/dL (1.8-2.4) White Blood Count 9.3 x10^3/uL (4.0-11.0) Red Blood Count 2.63 x10^6/uL (3.50-5.40) Hemoglobin 7.3 g/dL (12.0-15.5) Hematocrit 22.7 % (36.0-47.0) Mean Corpuscular Volume 87 fL (79-100) Mean Corpuscular Hemoglobin 28 pg (25-35) Mean Corpuscular Hemoglobin Concent 32 g/dL (31-37) Red Cell Distribution Width 19.2 % (11.5-14.5) Platelet Count 276 x10^3/uL (140-400) Neutrophils (%) (Auto) 87 % (31-73) Lymphocytes (%) (Auto) 7 % (24-48) Monocytes (%) (Auto) 3 % (0-9) Eosinophils (%) (Auto) 3 % (0-3) Basophils (%) (Auto) 0 % (0-3) Neutrophils # (Auto) 8.1 x10^3uL (1.8-7.7) Lymphocytes # (Auto) 0.7 x10^3/uL (1.0-4.8) Monocytes # (Auto) 0.3 x10^3/uL (0.0-1.1) Eosinophils # (Auto) 0.3 x10^3/uL (0.0-0.7) Basophils # (Auto) 0.0 x10^3/uL (0.0-0.2) Segmented Neutrophils % 84 % (35-66) Band Neutrophils % 6 % (0-9) Lymphocytes % 7 % (24-48) Monocytes % 3 % (0-10) Platelet Estimate Adequate (ADEQUATE) Estimated GFR (Non- 24 (>59) Albumin 1.4 g/dL (3.4-5.0) Triglycerides Level 69 mg/dL (0-150) EGFR 27 (>59) PTH (Intact) Specimen Description Comment (.) Parathyroid Hormone (Intact) 107 pg/mL (15-65) Calcium (PTH Intact) 8.2 mg/dL (8.7-10.3) Creatinine (PTH Intact) 2.06 mg/dL (0.57-1.00) Phosphorus (PTH Intact) 3.7 mg/dL (2.5-4.5) Laboratory Tests Test 08/04/18 06:15 White Blood Count 9.3 x10^3/uL (4.0-11.0) Red Blood Count 2.63 x10^6/uL (3.50-5.40) Hemoglobin 7.3 g/dL (12.0-15.5) Hematocrit 22.7 % (36.0-47.0) Mean Corpuscular Volume 87 fL (79-100) Mean Corpuscular Hemoglobin 28 pg (25-35) Mean Corpuscular Hemoglobin Concent 32 g/dL (31-37) Red Cell Distribution Width 19.2 % (11.5-14.5) Platelet Count 276 x10^3/uL (140-400) Neutrophils (%) (Auto) 87 % (31-73) Lymphocytes (%) (Auto) 7 % (24-48) Monocytes (%) (Auto) 3 % (0-9) Eosinophils (%) (Auto) 3 % (0-3) Basophils (%) (Auto) 0 % (0-3) Neutrophils # (Auto) 8.1 x10^3uL (1.8-7.7) Lymphocytes # (Auto) 0.7 x10^3/uL (1.0-4.8) Monocytes # (Auto) 0.3 x10^3/uL (0.0-1.1) Eosinophils # (Auto) 0.3 x10^3/uL (0.0-0.7) Basophils # (Auto) 0.0 x10^3/uL (0.0-0.2) Segmented Neutrophils % 84 % (35-66) Band Neutrophils % 6 % (0-9) Lymphocytes % 7 % (24-48) Monocytes % 3 % (0-10) Platelet Estimate Adequate (ADEQUATE) Sodium Level 143 mmol/L (136-145) Potassium Level 4.3 mmol/L (3.5-5.1) Chloride Level 107 mmol/L (98-107) Carbon Dioxide Level 22 mmol/L (21-32) Anion Gap 14 (6-14) Blood Urea Nitrogen 24 mg/dL (7-20) Creatinine 2.2 mg/dL (0.6-1.0) Estimated GFR (Non- 24 (>59) Estimated GFR (Cockcroft-Gault) 22.0 Glucose Level 118 mg/dL (70-99) Calcium Level 8.6 mg/dL (8.5-10.1) Phosphorus Level 3.6 mg/dL (2.6-4.7) Magnesium Level 2.1 mg/dL (1.8-2.4) Albumin 1.4 g/dL (3.4-5.0) Triglycerides Level 69 mg/dL (0-150) EGFR 27 (>59) PTH (Intact) Specimen Description Comment (.) Parathyroid Hormone (Intact) 107 pg/mL (15-65) Calcium (PTH Intact) 8.2 mg/dL (8.7-10.3) Creatinine (PTH Intact) 2.06 mg/dL (0.57-1.00) Phosphorus (PTH Intact) 3.7 mg/dL (2.5-4.5) Microbiology 07/28/18 Blood Culture - Final, Complete NO GROWTH AFTER 5 DAYS 07/14/18 Urine Culture - Final, Complete 07/14/18 Urine Culture Result 1 (MARYANN) - Final, Complete Medications Current Medications Piperacillin Sod/ Tazobactam Sod 4.5 gm/Sodium Chloride 100 ml @ 200 mls/hr 1X ONCE IV Last administered on 07/14/18at 15:58; Start 07/14/18 at 15:00; Stop 07/14/18 at 15:29; Status DC Vancomycin HCl (Vanco Per Pharmacy) 1 each PRN DAILY PRN MC SEE COMMENTS Last administered on 08/03/18at 11:14; Start 07/14/18 at 14:45 Vancomycin HCl 1.25 gm/Sodium Chloride 250 ml @ 166.667 mls/hr 1X ONCE IV Last administered on 07/14/18 18:10; Start 07/14/18 at 15:00; Stop 07/14/18 at 16:29; Status DC Ondansetron HCl (Zofran) 4 mg PRN Q8HRS PRN IV NAUSEA/VOMITING; Start 07/14/18 at 17:15; Stop 07/15/18 at 17:14; Status DC Morphine Sulfate (Morphine Sulfate) 2 mg PRN Q2HR PRN IV PAIN; Start 07/14/18 at 17:15; Stop 07/15/18 at 17:14; Status DC Acetaminophen (Tylenol) 650 mg PRN Q4HRS PRN PO FEVER; Start 07/14/18 at 17:15 ; Stop 07/15/18 at 17:14; Status DC Vancomycin HCl (Vancomycin Random Level) 1 each 1X ONCE MC ; Start 07/15/18 at 06:00; Stop 07/15/18 at 06:01; Status DC Vitamin B Complex/ Vitamin C (Dinorah-Ralph) 1 tab QPM PO Last administered on 08/03at 18:48; Start 07/15/18 at 18:00 Megestrol Acetate (Megace) 40 mg BID PO Last administered on 08/04/18at 09:14; Start 07/15/18 at 09:00 Mirtazapine (Remeron) 15 mg QHS PO Last administered on 08/03/18 21:10; Start 07/14/18 at 22:00 Non-Formulary Medication (Mirtazapine ) 1 tab QHS PO ; Start 07/15/18 at 21:00; Status UNV Ropinirole HCl (Requip) 3 mg BID PO Last administered on 07/16/18 18:21; Start 07/14/18 at 22:00; Stop 07/16/18 at 19:54; Status DC Sertraline HCl (Zoloft) 100 mg DAILY PO Last administered on 08/04/18 09:14; Start 07/15/18 at 09:00 Phytonadione (Mephyton Oral Soln) 5 mg 1X ONCE PO Last administered on 22:14; Start 07/14/18 at 22:00; Stop 07/14/18 at 22:01; Status DC Vitamin B Complex (Folbic Tablet) 1 tab DAILY PO Last administered on 18:16; Start 07/15/18 at 09:00 Albuterol/ Ipratropium (Duoneb) 3 ml RTBID NEB Last administered on 08/04/18 06:55; Start 07/15/18 at 08:00 Sodium Chloride 1,000 ml @ 1,000 mls/hr Q1H PRN IV hypotension; Start 07/15/18 at 10:48; Stop 07/15/18 at 16:47; Status DC Albumin Human 200 ml @ 200 mls/hr 1X PRN PRN IV Hypotension; Start 07/15/18 at 11:00; Stop 07/15/18 at 16:59; Status DC Sodium Chloride 1,000 ml @ 400 mls/hr Q2H30M PRN IV PATENCY; Start 07/15/18 at 10:48; Stop 07/15/18 at 22:47; Status DC Info (PHARMACY MONITORING -- do not chart) 1 each PRN DAILY PRN MC SEE COMMENTS ; Start 07/15/18 at 11:00; Status UNV Info (PHARMACY MONITORING -- do not chart) 1 each PRN DAILY PRN MC SEE COMMENTS ; Start 07/15/18 at 11:00; Stop 07/22/18 at 14:31; Status DC Vancomycin HCl 500 mg/Sodium Chloride 100 ml @ 100 mls/hr QTUTHSA IV Last administered on 07/17/18at 16:44; Start 07/17/18 at 16:00; Stop 07/18/18 at 15:41 ; Status DC Lactobacillus Rhamnosus (Culturelle) 1 cap BID PO Last administered on 09:13; Start 07/16/18 at 21:00 Clotrimazole (Mycelex) 10 mg 5XDAY MM Last administered on 07/28/18at 05:48; Start 07/16/18 at 14:00; Stop 07/28/18 at 14:13; Status DC Ropinirole HCl (Requip) 3 mg DAILY PO Last administered on 08/04/18at 09:13; Start 07/17/18 at 09:00 Ropinirole HCl (Requip) 2 mg QHS PO Last administered on 08/03/18at 21:10; Start 07/16/18 at 21:00 Ropinirole HCl (Requip) 1 mg PRN QEVNG PRN PO RLS Last administered on at 17:46; Start 07/16/18 at 20:00 Vancomycin HCl (Vancomycin Oral Solution) 125 mg Q6HRS PO Last administered on 08/04/18at 12:24; Start 07/17/18 at 00:00 Sodium Chloride 1,000 ml @ 1,000 mls/hr Q1H PRN IV hypotension; Start 07/17/18 at 14:55; Stop 07/17/18 at 20:54; Status DC Sodium Chloride 1,000 ml @ 400 mls/hr Q2H30M PRN IV PATENCY; Start 07/17/18 at 14:55; Stop 07/18/18 at 02:54; Status DC Info (PHARMACY MONITORING -- do not chart) 1 each PRN DAILY PRN MC SEE COMMENTS ; Start 07/17/18 at 15:00; Stop 07/17/18 at 15:00; Status DC Info (PHARMACY MONITORING -- do not chart) 1 each PRN DAILY PRN MC SEE COMMENTS ; Start 07/17/18 at 15:00; Stop 07/17/18 at 15:00; Status DC Sodium Chloride 1,000 ml @ 1,000 mls/hr Q1H PRN IV hypotension; Start 07/18/18 at 11:30; Stop 07/18/18 at 17:29; Status DC Sodium Chloride 1,000 ml @ 400 mls/hr Q2H30M PRN IV PATENCY; Start 07/18/18 at 11:30; Stop 07/18/18 at 23:29; Status DC Info (PHARMACY MONITORING -- do not chart) 1 each PRN DAILY PRN MC SEE COMMENTS ; Start 07/18/18 at 12:30; Status UNV Info (PHARMACY MONITORING -- do not chart) 1 each PRN DAILY PRN MC SEE COMMENTS ; Start 07/18/18 at 12:30; Status UNV Vancomycin HCl 500 mg/Sodium Chloride 100 ml @ 100 mls/hr 1X ONCE IV Last administered on 07/18/18at 16:40; Start 07/18/18 at 16:00; Stop 07/18/18 at 16:59 ; Status DC Amino Acids/ Glycerin/ Electrolytes 1,000 ml @ 80 mls/hr [id number] IV Last administered on 08/02/18at 16:31; Start 07/19/18 at 11:45; Stop 08/02/18 at 21:59; Status DC Potassium Chloride (Klor-Con) 40 meq AFTRNOON PO Last administered on 08/02/18at 13:07; Start 07/19/18 at 13:00 Vancomycin HCl 500 mg/Sodium Chloride 100 ml @ 100 mls/hr 1X ONCE IV ; Start 07/21/18 at 16:00; Stop 07/21/18 at 16:59; Status Cancel Acetaminophen/ Hydrocodone Bitart (Lortab 5/325) 1 tab PRN Q6HRS PRN PO SEVERE PAIN; Start 07/19/18 at 20:00 Sodium Chloride 1,000 ml @ 1,000 mls/hr Q1H PRN IV hypotension; Start 07/21/18 at 12:29; Stop 07/21/18 at 18:28; Status DC Sodium Chloride (Normal Saline Flush) 10 ml 1X PRN PRN IV AP catheter pack; Start 07/21/18 at 12:30; Stop 07/22/18 at 12:29; Status DC Sodium Chloride (Normal Saline Flush) 10 ml 1X PRN PRN IV AFFIRMATIVE ACTION SPECIALIST catheter pack; Start 07/21/18 at 12:30; Stop 07/22/18 at 12:29; Status DC Sodium Chloride 1,000 ml @ 400 mls/hr Q2H30M PRN IV PATENCY; Start 07/21/18 at 12:29; Stop 07/22/18 at 00:28; Status DC Info (PHARMACY MONITORING -- do not chart) 1 each PRN DAILY PRN MC SEE COMMENTS ; Start 07/21/18 at 12:30; Status UNV Info (PHARMACY MONITORING -- do not chart) 1 each PRN DAILY PRN MC SEE COMMENTS ; Start 07/21/18 at 12:30; Status Cancel Vancomycin HCl 750 mg/Sodium Chloride 250 ml @ 250 mls/hr 1X ONCE IV ; Start 07/21/18 at 16:00; Stop 07/21/18 at 16:59; Status Cancel Vancomycin HCl 500 mg/Sodium Chloride 100 ml @ 100 mls/hr 1X ONCE IV Last administered on 07/21/18at 21:35; Start 07/21/18 at 18:30; Stop 07/21/18 at 19:29 ; Status DC Lidocaine/ Epinephrine (LIDOCAINE 1%-EPI 1:100,000 Multi-Dose) 20 ml STK-MED ONCE .ROUTE ; Start 07/22/18 at 11:46; Stop 07/22/18 at 11:47; Status DC Cefazolin Sodium 50 ml @ As Directed STK-MED ONCE IV ; Start 07/22/18 at 12:45; Stop 07/22/18 at 12:46; Status DC Midazolam HCl (Versed) 2 mg STK-MED ONCE .ROUTE ; Start 07/22/18 at 12:45; Stop 07/22/18 at 12:46; Status DC Fentanyl Citrate (Fentanyl 2ml Vial) 100 mcg STK-MED ONCE .ROUTE ; Start at 12:45; Stop 07/22/18 at 12:46; Status DC Vancomycin HCl 500 mg/Sodium Chloride 100 ml @ 100 mls/hr QTUTHSA IV Last administered on 07/24/18at 18:27; Start 07/22/18 at 16:00; Stop 07/26/18 at 14:45 ; Status DC Midazolam HCl (Versed) 2 mg 1X ONCE IV Last administered on 07/22/18at 13:28; Start 07/22/18 at 13:30; Stop 07/22/18 at 13:31; Status DC Fentanyl Citrate (Fentanyl 2ml Vial) 100 mcg 1X ONCE IV Last administered on at 13:27; Start 07/22/18 at 13:30; Stop 07/22/18 at 13:31; Status DC Lidocaine HCl (Lidocaine 1% 20ml Vial) 20 ml 1X ONCE INJ Last administered on 07/22/18at 13:27; Start 07/22/18 at 13:30; Stop 07/22/18 at 13:31; Status DC Ceftaroline Fosamil 400 mg/ Sodium Chloride 250 ml @ 250 mls/hr Q12HR IV Last administered on 08/04/18at 09:10; Start 07/22/18 at 14:00 Darbepoetin Avery (Aranesp) 60 mcg [id number] SQ Last administered on 07/29/18at 20: 23; Start 07/22/18 at 21:00 Sodium Chloride 1,000 ml @ 1,000 mls/hr Q1H PRN IV hypotension; Start 07/22/18 at 15:20; Stop 07/22/18 at 21:19; Status DC Albumin Human 200 ml @ 200 mls/hr 1X PRN PRN IV Hypotension; Start 07/22/18 at 15:30; Stop 07/22/18 at 21:29; Status DC Acetaminophen (Tylenol) 500 mg 1X PRN PRN PO MILD PAIN / TEMP; Start 07/22/18 at 15:30; Stop 07/23/18 at 15:29; Status DC Diphenhydramine HCl (Benadryl) 25 mg 1X PRN PRN IV ITCHING; Start 07/22/18 at 15:30; Stop 07/23/18 at 15:29; Status DC Diphenhydramine HCl (Benadryl) 25 mg 1X PRN PRN IV ITCHING; Start 07/22/18 at 15:30; Stop 07/23/18 at 15:29; Status DC Sodium Chloride (Normal Saline Flush) 10 ml 1X PRN PRN IV AP catheter pack; Start 07/22/18 at 15:30; Stop 07/23/18 at 15:29; Status DC Sodium Chloride (Normal Saline Flush) 10 ml 1X PRN PRN IV AFFIRMATIVE ACTION SPECIALIST catheter pack; Start 07/22/18 at 15:30; Stop 07/23/18 at 15:29; Status DC Sodium Chloride 1,000 ml @ 400 mls/hr Q2H30M PRN IV PATENCY; Start 07/22/18 at 15:20; Stop 07/23/18 at 03:19; Status DC Info (PHARMACY MONITORING -- do not chart) 1 each PRN DAILY PRN MC SEE COMMENTS ; Start 07/22/18 at 15:30; Stop 07/22/18 at 15:30; Status DC Sodium Chloride 1,000 ml @ 1,000 mls/hr Q1H PRN IV hypotension; Start 07/23/18 at 07:00; Stop 07/23/18 at 12:59; Status DC Sodium Chloride 1,000 ml @ 400 mls/hr Q2H30M PRN IV PATENCY; Start 07/23/18 at 07:00; Stop 07/23/18 at 18:59; Status DC Info (PHARMACY MONITORING -- do not chart) 1 each PRN DAILY PRN MC SEE COMMENTS ; Start 07/23/18 at 09:00; Status UNV Info (PHARMACY MONITORING -- do not chart) 1 each PRN DAILY PRN MC SEE COMMENTS ; Start 07/23/18 at 09:00; Stop 08/03/18 at 08:27; Status DC Labetalol HCl (Normodyne Iv Push) 10 mg PRN Q2HR PRN IVP HYPERTENSION, SEE COMMENTS; Start 07/23/18 at 09:30 Acetaminophen (Tylenol) 500 mg PRN Q6HRS PRN PO MILD PAIN / TEMP; Start at 09:30 Ondansetron HCl (Zofran) 4 mg PRN Q6HRS PRN IV NAUSEA/VOMITING Last administered on 07/26/18at 16:17; Start 07/23/18 at 09:30 Ondansetron HCl (Zofran Odt) 4 mg PRN Q6HRS PRN PO NAUSEA/VOMITING Last administered on 07/26/18at 16:12; Start 07/23/18 at 09:30 Tramadol HCl (Ultram) 50 mg PRN Q6HRS PRN PO MODERATE PAIN; Start 07/23/18 at 09:30 Amlodipine Besylate (Norvasc) 10 mg DAILY PO Last administered on 08/04/18at 09: 14; Start 07/23/18 at 09:00 Ondansetron HCl (Zofran) 4 mg PRN Q6HRS PRN IV NAUSEA/VOMITING; Start 07/24/18 at 07:00; Stop 07/25/18 at 06:59; Status DC Fentanyl Citrate (Fentanyl 2ml Vial) 25 mcg PRN Q5MIN PRN IV MILD PAIN; Start 07/24/18 at 07:00; Stop 07/25/18 at 06:59; Status DC Fentanyl Citrate (Fentanyl 2ml Vial) 50 mcg PRN Q5MIN PRN IV MODERATE TO SEVERE PAIN; Start 07/24/18 at 07:00; Stop 07/25/18 at 06:59; Status DC Ringer's Solution 1,000 ml @ 30 mls/hr Q24H IV ; Start 07/24/18 at 07:00; Stop 07/24/18 at 18:59; Status DC Lidocaine HCl (Xylocaine-Mpf 1% 2ml Vial) 2 ml PRN 1X PRN ID PRIOR TO IV START ; Start 07/24/18 at 07:00; Stop 07/25/18 at 06:59; Status DC Prochlorperazine Edisylate (Compazine) 5 mg PACU PRN PRN IV NAUSEA, MRX1; Start 07/24/18 at 07:00; Stop 07/25/18 at 06:59; Status DC Vancomycin HCl 500 mg/Sodium Chloride 100 ml @ 100 mls/hr ONCE ONCE IV Last administered on 07/23/18at 17:23; Start 07/23/18 at 16:00; Stop 07/23/18 at 16:59 ; Status DC Nystatin (Mycostatin) 1 rolly BID TP Last administered on 08/03/18at 21:11; Start 07/23/18 at 21:00 Benzocaine (Hurricaine One) 1 spray STK-MED ONCE .ROUTE ; Start 07/24/18 at 11: 49; Stop 07/24/18 at 11:50; Status Cancel Lidocaine HCl (Viscous Lidocaine) 15 ml STK-MED ONCE .ROUTE ; Start 07/24/18 at 11:49; Stop 07/24/18 at 11:50; Status DC Lidocaine HCl (Xylocaine 2% Topical 5gm Tube) 1 rolly 1X ONCE TP ; Start at 12:00; Stop 07/24/18 at 12:01; Status DC Lidocaine HCl (Viscous Lidocaine) 15 ml 1X ONCE SWSW Last administered on 07/24at 13:12; Start 07/24/18 at 12:00; Stop 07/24/18 at 12:01; Status DC Benzocaine (Hurricaine One) 3 spray 1X ONCE MM Last administered on 07/24/18at 13:11; Start 07/24/18 at 12:00; Stop 07/24/18 at 12:01; Status DC Lidocaine HCl (Glydo (Lidocaine) Jelly) 1 rolly 1X ONCE MM Last administered on 07/24/18at 13:10; Start 07/24/18 at 12:00; Stop 07/24/18 at 12:01; Status DC Sodium Chloride 1,000 ml @ 1,000 mls/hr Q1H PRN IV hypotension; Start 07/24/18 at 13:36; Stop 07/24/18 at 19:35; Status DC Albumin Human 200 ml @ 200 mls/hr 1X PRN PRN IV Hypotension; Start 07/24/18 at 13:45; Stop 07/24/18 at 19:44; Status DC Acetaminophen (Tylenol) 500 mg 1X PRN PRN PO MILD PAIN / TEMP; Start 07/24/18 at 13:45; Stop 07/25/18 at 13:44; Status DC Diphenhydramine HCl (Benadryl) 25 mg 1X PRN PRN IV ITCHING; Start 07/24/18 at 13:45; Stop 07/25/18 at 13:44; Status DC Diphenhydramine HCl (Benadryl) 25 mg 1X PRN PRN IV ITCHING; Start 07/24/18 at 13:45; Stop 07/25/18 at 13:44; Status DC Sodium Chloride (Normal Saline Flush) 10 ml 1X PRN PRN IV AP catheter pack; Start 07/24/18 at 13:45; Stop 07/25/18 at 13:44; Status DC Sodium Chloride (Normal Saline Flush) 10 ml 1X PRN PRN IV [employer] catheter pack; Start 07/24/18 at 13:45; Stop 07/25/18 at 13:44; Status DC Sodium Chloride 1,000 ml @ 400 mls/hr Q2H30M PRN IV PATENCY; Start 07/24/18 at 13:36; Stop 07/25/18 at 01:35; Status DC Info (PHARMACY MONITORING -- do not chart) 1 each PRN DAILY PRN MC SEE COMMENTS ; Start 07/24/18 at 13:45; Stop 07/24/18 at 13:45; Status DC Propofol (Diprivan) 200 mg STK-MED ONCE IV ; Start 07/24/18 at 13:00; Stop at 08:16; Status DC Loperamide HCl (Imodium) 2 mg 1X ONCE PO Last administered on 07/25/18at 12:47; Start 07/25/18 at 11:15; Stop 07/25/18 at 11:16; Status DC Vancomycin HCl 500 mg/Sodium Chloride 100 ml @ 100 mls/hr QTUTHSA IV ; Start at 16:00; Stop 07/29/18 at 16:00; Status DC Vancomycin HCl (Vancomycin Random Level) 1 each 1X ONCE MC Last administered on 07/27/18at 06:00; Start 07/27/18 at 06:00; Stop 07/27/18 at 06:02; Status DC Simethicone (Gas-X) 80 mg PRN AFTMEALHC PRN PO GAS / BLOATING Last administered on 07/26/18at 16:12; Start 07/26/18 at 15:45 Lidocaine/ Epinephrine (LIDOCAINE 1%-EPI 1:100,000 Multi-Dose) 20 ml STK-MED ONCE .ROUTE ; Start 07/28/18 at 10:36; Stop 07/28/18 at 10:37; Status DC Heparin Sodium (Porcine) (Heparin Sodium) 10,000 unit STK-MED ONCE .ROUTE ; Start 07/28/18 at 10:38; Stop 07/28/18 at 10:39; Status DC Heparin Sodium/ Sodium Chloride 0 ml @ As Directed STK-MED ONCE .ROUTE ; Start 07/28/18 at 10:39; Stop 07/28/18 at 10:40; Status DC Sodium Chloride 1,000 ml @ 1,000 mls/hr Q1H PRN IV hypotension; Start 07/28/18 at 12:54; Stop 07/28/18 at 18:53; Status DC Sodium Chloride (Normal Saline Flush) 10 ml 1X PRN PRN IV AP catheter pack; Start 07/28/18 at 13:00; Stop 07/29/18 at 12:59; Status DC Sodium Chloride (Normal Saline Flush) 10 ml 1X PRN PRN IV AFFIRMATIVE ACTION SPECIALIST catheter pack; Start 07/28/18 at 13:00; Stop 07/29/18 at 12:59; Status DC Info (PHARMACY MONITORING -- do not chart) 1 each PRN DAILY PRN MC SEE COMMENTS ; Start 07/28/18 at 13:00; Status UNV Info (PHARMACY MONITORING -- do not chart) 1 each PRN DAILY PRN MC SEE COMMENTS ; Start 07/28/18 at 13:00; Stop 07/29/18 at 07:20; Status DC Vancomycin HCl 500 mg/Sodium Chloride 100 ml @ 100 mls/hr QMWF IV Last administered on 07/30/18at 16:11; Start 07/28/18 at 16:00; Stop 07/31/18 at 14:28; Status DC Sodium Chloride 1,000 ml @ 1,000 mls/hr Q1H PRN IV hypotension; Start 07/29/18 at 07:02; Stop 07/29/18 at 13:01; Status DC Albumin Human 200 ml @ 200 mls/hr 1X PRN PRN IV Hypotension; Start 07/29/18 at 07:15; Stop 07/29/18 at 13:14; Status DC Acetaminophen (Tylenol) 500 mg 1X PRN PRN PO MILD PAIN / TEMP; Start 07/29/18 at 07:15; Stop 07/30/18 at 07:14; Status DC Diphenhydramine HCl (Benadryl) 25 mg 1X PRN PRN IV ITCHING; Start 07/29/18 at 07 :15; Stop 07/30/18 at 07:14; Status DC Diphenhydramine HCl (Benadryl) 25 mg 1X PRN PRN IV ITCHING; Start 07/29/18 at 07 :15; Stop 07/30/18 at 07:14; Status DC Sodium Chloride 1,000 ml @ 400 mls/hr Q2H30M PRN IV PATENCY; Start 07/29/18 at 07:02; Stop 07/29/18 at 19:01; Status DC Info (PHARMACY MONITORING -- do not chart) 1 each PRN DAILY PRN MC SEE COMMENTS ; Start 07/29/18 at 07:15; Stop 07/29/18 at 07:19; Status DC Sodium Chloride 1,000 ml @ 1,000 mls/hr Q1H PRN IV hypotension; Start 07/31/18 at 08:36; Stop 07/31/18 at 14:35; Status DC Sodium Chloride 1,000 ml @ 400 mls/hr Q2H30M PRN IV PATENCY; Start 07/31/18 at 08:36; Stop 07/31/18 at 20:35; Status DC Info (PHARMACY MONITORING -- do not chart) 1 each PRN DAILY PRN MC SEE COMMENTS ; Start 07/31/18 at 08:45; Status UNV Vancomycin HCl 500 mg/Sodium Chloride 100 ml @ 100 mls/hr QTUTHSA IV Last administered on 08/02/18at 16:32; Start 07/31/18 at 16:00 Vancomycin HCl (Vancomycin Random Level) 1 each 1X ONCE MC Last administered on 08/02/18at 05:00; Start 08/02/18 at 05:00; Stop 08/02/18 at 05:01; Status DC Lidocaine/ Epinephrine (LIDOCAINE 1%-EPI 1:100,000 Multi-Dose) 20 ml STK-MED ONCE .ROUTE ; Start 08/01/18 at 14:59; Stop 08/01/18 at 15:00; Status DC Heparin Sodium (Porcine) (Hep Lock Adult) 500 unit STK-MED ONCE IV ; Start at 14:59; Stop 08/01/18 at 15:00; Status DC Lidocaine/ Epinephrine (LIDOCAINE 1%-EPI 1:100,000 Multi-Dose) 20 ml 1X ONCE IJ Last administered on 08/01/18at 15:30; Start 08/01/18 at 15:30; Stop 08/01/18 at 15:31; Status DC Heparin Sodium (Porcine) (Hep Lock Adult) 500 unit 1X ONCE IV Last administered on 08/01/18at 15:30; Start 08/01/18 at 15:30; Stop 08/01/18 at 15:31; Status DC Info (Tpn Per Pharmacy) 1 each PRN DAILY PRN MC SEE COMMENTS Last administered on 08/04/18at 13:31; Start 08/01/18 at 16:30 Sodium Chloride 1,000 ml @ 1,000 mls/hr Q1H PRN IV hypotension; Start 08/02/18 at 08:14; Stop 08/02/18 at 14:13; Status DC Heparin Sodium (Porcine) (Heparin Sodium) 2,000 unit 1X PRN PRN INT CAT AP catheter pack; Start 08/02/18 at 08:15; Stop 08/03/18 at 08:14; Status DC Heparin Sodium (Porcine) (Heparin Sodium) 2,000 unit 1X PRN PRN INT CAT AFFIRMATIVE ACTION SPECIALIST catheter pack; Start 08/02/18 at 08:15; Stop 08/03/18 at 08:14; Status DC Info (PHARMACY MONITORING -- do not chart) 1 each PRN DAILY PRN MC SEE COMMENTS ; Start 08/02/18 at 08:15; Status UNV Info (PHARMACY MONITORING -- do not chart) 1 each PRN DAILY PRN MC SEE COMMENTS ; Start 08/02/18 at 08:15 Sodium Chloride 90 meq/Sodium Phosphate 13.6 mmol/Potassium Chloride 50 meq/ Magnesium Sulfate 10 meq/ Multivitamins 10 ml/Chromium/ Copper/Manganese/ Seleni /Zn 1 ml/ Total Parenteral Nutrition/Amino Acids/Dextrose/ Fat Emulsion Intravenous 1,008 ml @ 42 mls/hr TPN CONT IV Last administered on 08/02/18at 22 :04; Start 08/02/18 at 22:00; Stop 08/03/18 at 21:59; Status DC Sodium Phosphate 15 mmol/Dextrose 255 ml @ 63.75 mls/ hr 1X ONCE IV Last administered on 08/03/18at 11:35; Start 08/03/18 at 11:30; Stop 08/03/18 at 15:29 ; Status DC Sodium Chloride 90 meq/Sodium Phosphate 20 mmol/ Potassium Chloride 50 meq/ Magnesium Sulfate 5 meq/ Multivitamins 10 ml/Chromium/ Copper/Manganese/ Seleni/ Zn 1 ml/ Total Parenteral Nutrition/Amino Acids/Dextrose/ Fat Emulsion Intravenous 1,008 ml @ 42 mls/hr TPN CONT IV Last administered on 08/03/18at 21:22; Start 08/03/18 at 22:00; Stop 08/04/18 at 21:59 Sodium Chloride 90 meq/Sodium Phosphate 10 mmol/ Potassium Chloride 50 meq/ Magnesium Sulfate 5 meq/ Multivitamins 10 ml/Chromium/ Copper/Manganese/ Seleni/ Zn 1 ml/ Total Parenteral Nutrition/Amino Acids/Dextrose/ Fat Emulsion Intravenous 1,008 ml @ 42 mls/hr TPN CONT IV ; Start 08/04/18 at 22:00; Stop 08/05/18 at 21:59 Active Scripts Active Reported Dialyvite Tablet (Folic Acid/Vitamin B Comp W-C) 1 Each Tablet 1 Each PO QPM QPM @ 1900 [hectorol] QTUTHSA [epogen] QTUTHSA Mirtazapine 15 Mg Tablet 1 Tab PO QHS Zoloft (Sertraline Hcl) 100 Mg Tablet 1 Tab PO DAILY Requip (Ropinirole Hcl) 1 Mg Tablet 3 Mg PO BID Mirtazapine 15 Mg Tablet 1 Tab PO QHS Megestrol Acetate 40 Mg Tablet 40 Mg PO BID Vitals/I & O Vital Sign - Last 24 Hours 08/03/18 08/03/18 08/03/18 08/03/18 14:33 19:00 20:00 20:22 Temp 97.8 98.3 97.8 98.3 Pulse 97 85 Resp 18 19 B/P (MAP) 178/89 (118) 142/66 (91) Pulse Ox 92 92 95 O2 Delivery Room Air Room Air Room Air Room Air 08/03/18 08/04/18 08/04/18 08/04/18 23:00 03:00 06:56 07:00 Temp 97.9 97.9 97.9 97.9 Pulse 91 83 96 Resp 19 20 18 B/P (MAP) 141/92 (108) 149/88 (108) 143/86 (105) Pulse Ox 91 92 90 94 O2 Delivery Room Air Room Air Room Air Room Air 08/04/18 08/04/18 08/04/18 08:20 09:14 11:00 Temp 97.8 97.8 Pulse 96 94 Resp 18 B/P (MAP) 143/86 163/86 (111) Pulse Ox 92 O2 Delivery Room Air Room Air Intake and Output 08/03/18 08/03/18 08/04/18 14:59 22:59 06:59 Output Total 0 ml 0 ml Balance 0 ml 0 ml Nutrition Consultation Dietary Evaluation: Recommendations by RD: PPN/TPN, Add supplement feedings Comments: day 2 TPN continue Diet per BALER OPERATOR, renal and encourage intake of renal suppelements Expected Outcomes/Goals: po intake to improve to 50% of meals- goal ongoing Interpretation of weight loss: >1-2% in 1 week Malnutrition Findings: Food and Nutrition Intake (Sev: <50% est energy req 5days Body Fat Depletion (Non Severe: Mod to Severe Weight Status: Underweight TESS BOURNE MD Aug 04, 2018 14:16
[2018-08-04] MEDS: NYSTATIN 100,000 UNIT/GM TOPICAL CREAM 15GM TUBE. TP SCH ×2 (14:23→21:00)
[2018-08-04] MEDS: POTASSIUM CHLORIDE 20 MEQ TABLET.ER. PO SCH (14:25)
[2018-08-04 14:51] VITALS: BP 170/87
--- NOTE | 2018-08-04 15:45 | PDOC ---
Renal-Progress Notes Subjective Notes Notes NONE History of Present Illness Hx of present illness STABLE Vitals Vitals Vital Signs Date Time Temp Pulse Resp B/P (MAP) Pulse Ox O2 Delivery O2 Flow Rate FiO2 08/04/18 14:51 97.8 96 18 170/87 (114) 94 Room Air 97.8 08/03/18 08:00 4.0 Weight Weight [ ] I.O. Intake and Output Intake and Output 08/04/18 06:59 Output Total 0 ml Balance 0 ml Output Urine Total 0 ml # Bowel Movements 1 Labs Labs Laboratory Tests Test 08/04/18 06:15 White Blood Count 9.3 x10^3/uL (4.0-11.0) Red Blood Count 2.63 x10^6/uL (3.50-5.40) Hemoglobin 7.3 g/dL (12.0-15.5) Hematocrit 22.7 % (36.0-47.0) Mean Corpuscular Volume 87 fL (79-100) Mean Corpuscular Hemoglobin 28 pg (25-35) Mean Corpuscular Hemoglobin Concent 32 g/dL (31-37) Red Cell Distribution Width 19.2 % (11.5-14.5) Platelet Count 276 x10^3/uL (140-400) Neutrophils (%) (Auto) 87 % (31-73) Lymphocytes (%) (Auto) 7 % (24-48) Monocytes (%) (Auto) 3 % (0-9) Eosinophils (%) (Auto) 3 % (0-3) Basophils (%) (Auto) 0 % (0-3) Neutrophils # (Auto) 8.1 x10^3uL (1.8-7.7) Lymphocytes # (Auto) 0.7 x10^3/uL (1.0-4.8) Monocytes # (Auto) 0.3 x10^3/uL (0.0-1.1) Eosinophils # (Auto) 0.3 x10^3/uL (0.0-0.7) Basophils # (Auto) 0.0 x10^3/uL (0.0-0.2) Segmented Neutrophils % 84 % (35-66) Band Neutrophils % 6 % (0-9) Lymphocytes % 7 % (24-48) Monocytes % 3 % (0-10) Platelet Estimate Adequate (ADEQUATE) Sodium Level 143 mmol/L (136-145) Potassium Level 4.3 mmol/L (3.5-5.1) Chloride Level 107 mmol/L (98-107) Carbon Dioxide Level 22 mmol/L (21-32) Anion Gap 14 (6-14) Blood Urea Nitrogen 24 mg/dL (7-20) Creatinine 2.2 mg/dL (0.6-1.0) Estimated GFR (Non- 24 (>59) Estimated GFR (Cockcroft-Gault) 22.0 Glucose Level 118 mg/dL (70-99) Calcium Level 8.6 mg/dL (8.5-10.1) Phosphorus Level 3.6 mg/dL (2.6-4.7) Magnesium Level 2.1 mg/dL (1.8-2.4) Albumin 1.4 g/dL (3.4-5.0) Triglycerides Level 69 mg/dL (0-150) Lipase 41 U/L (73-393) EGFR 27 (>59) PTH (Intact) Specimen Description Comment (.) Parathyroid Hormone (Intact) 107 pg/mL (15-65) Calcium (PTH Intact) 8.2 mg/dL (8.7-10.3) Creatinine (PTH Intact) 2.06 mg/dL (0.57-1.00) Phosphorus (PTH Intact) 3.7 mg/dL (2.5-4.5) Micro Micro Microbiology 07/28/18 Blood Culture - Final, Complete NO GROWTH AFTER 5 DAYS 07/14/18 Urine Culture - Final, Complete 07/14/18 Urine Culture Result 1 (MARYANN) - Final, Complete Review of Systems Constitutional: yes: alert, oriented Ears/Nose/Throat: Yes: no symptom reported Eyes: Yes: no symptom reported Pulmonary: Yes no symptom reported Cardiovascular: Yes no symptom reported Gastrointestional: Yes: no symptom reported Genitourinary: Yes: no symptom reported Musculoskeletal: Yes: no symptom reported Skin: Yes no symptom reported Psychiatric/Neurological: Yes: no symptom reported Endocrine: Yes: no symptom reported Hematologic/Lymphatic: Yes: no symptom reported Physical Exam General Appearance: no apparent distress Skin: warm Respiratory: decreased breath sounds Abdomen: soft, bowel sounds present Genitourinary: bladder flat Extremities: pulses present Neurology: alert, oriented, follow commands Assessment Assessment IMP ESRD ANEMIA BACTEREMIA PLAN ANTIBIOTICS HD TOMORROW WILL FOLLOW MINAYA,DEIDRA S MD Aug 04, 2018 15:45
[2018-08-04] MEDS: VITAMIN B12,B9,B6 COMPLEX 1 TABLET. PO SCH (17:52)
[2018-08-04] MEDS: FOLIC/VIT B COMP W-C (RENAL) TABLET. PO SCH (17:54)
[2018-08-04 18:44] VITALS: BP 130/78
[2018-08-04] MEDS: MIRTAZAPINE 15 MG TABLET PO SCH ×2 (21:00→21:58)
[2018-08-04] MEDS ORDERED: TOTAL PARENTERAL NUTRITION IV SCH ×9 (22:00)
[2018-08-04] MEDS ORDERED: DEXTROSE 70% IV SCH ×9 (22:00)
[2018-08-04] MEDS ORDERED: AMINO ACID IV SCH ×9 (22:00)
[2018-08-04] MEDS ORDERED: [UNRECOGNIZED DRUG - OTHER] IV SCH ×9 (22:00)
[2018-08-04 23:00] VITALS: BP 164/63
[2018-08-05] MEDS: VANCOMYCIN 125 MG/2.5 ML ORAL SOLUTION. PO SCH ×4 (00:06→17:12)
[2018-08-05 03:00] VITALS: BP 99/77
[2018-08-05 07:00] VITALS: BP 160/60
[2018-08-05 07:11] LABS: CALCIUM 8.3 mg/dL (8.5-10.1); CREATININE 2.6 mg/dL (0.6-1.0); GFR 18.1; MAGNESIUM 2.2 mg/dL (1.8-2.4); PHOSPHORUS 4.3 mg/dL (2.6-4.7); POTASSIUM 5.6 mmol/L (3.5-5.1)
[2018-08-05] MEDS: IPRATRPIUM/ALBUTEROL 0.5/2.5MG 3 ML NEBU. NEB SCH ×2 (08:11→19:30)
[2018-08-05] MEDS: amLODIPine BESYLATE 10 MG TABLET PO SCH (09:00)
[2018-08-05] MEDS: MEGESTROL 20 MG TABLET. PO SCH ×2 (09:06→21:00)
[2018-08-05] MEDS: SERTRALINE 50 MG TABLET. PO SCH (09:07)
[2018-08-05] MEDS: NYSTATIN 100,000 UNIT/GM TOPICAL CREAM 15GM TUBE. TP SCH ×2 (09:07→21:52)
[2018-08-05] MEDS: LACTOBACILLUS RHAMNOSUS GG 1 CAPSULE. PO SCH ×2 (09:07→21:00)
[2018-08-05] MEDS: rOPINIRole 1 MG TABLET. PO SCH ×2 (09:07→21:00)
--- NOTE | 2018-08-05 09:08 | NUR ---
HOLD BP MEDS D/T DIALYSIS TODAY
[2018-08-05] MEDS ORDERED: IV NORMAL SALINE 1000ML BAG 1,000 ML IV PRN ×2 (09:09)
[2018-08-05] MEDS ORDERED: ACETAMINOPHEN 500 MG TABLET PO PRN (09:15)
[2018-08-05] MEDS ORDERED: DIALYSIS PATIENT. MC PRN (09:15)
[2018-08-05] MEDS ORDERED: ALBUMIN HUMAN 25% 200 ML IV PRN (09:15)
[2018-08-05] MEDS ORDERED: 0.9 % SODIUM CHLORIDE 10 ML DISP.SYRIN. IV PRN ×2 (09:15)
[2018-08-05] MEDS ORDERED: diphenhydrAMINE 50 MG/ML VIAL IV PRN ×2 (09:15)
[2018-08-05] MEDS: CEFTAROLINE FOSAMIL IV SCH (09:27)
[2018-08-05] MEDS: NORMAL SALINE IV SCH (09:27)
--- NOTE | 2018-08-05 09:30 | NUR ---
Assessment complete; Patient is A&O x 0-1, a decline from previous days, doctors and social work in the notification loop.
--- NOTE | 2018-08-05 09:45 | PDOC ---
Infectious Disease Note Subjective Subjective a little confused this am TPN + diarrhea Denies N/V/F/C/S/SOA Vital Sign Vital Signs Vital Signs Date Time Temp Pulse Resp B/P (MAP) Pulse Ox O2 Delivery O2 Flow Rate FiO2 08/05/18 09:00 84 160/60 08/05/18 08:11 Room Air 08/05/18 07:00 98.1 18 95 98.1 Physical Exam PHYSICAL EXAM GENERAL: Lying down, NAD - awakens but less responsive HEENT: Normal conjunctivae. + dentures NECK: Supple. LUNGS: Clear to auscultation. HEART: S1, S2. ABDOMEN: Soft and less tender. No guarding or rebound. EXTREMITIES: No clubbing, cyanosis or gross edema. SKIN: Warm to touch, no signs of rash. NEUROLOGIC: Awake, responds appropriately Right chest hemodialysis catheter (07/23) clean Left-chest central line (08/01)clean Labs Lab Laboratory Tests Test 08/05/18 06:55 Sodium Level 146 mmol/L (136-145) Potassium Level 5.6 mmol/L (3.5-5.1) Chloride Level 114 mmol/L (98-107) Carbon Dioxide Level 22 mmol/L (21-32) Anion Gap 10 (6-14) Blood Urea Nitrogen 40 mg/dL (7-20) Creatinine 2.6 mg/dL (0.6-1.0) Estimated GFR (Cockcroft-Gault) 18.1 Glucose Level 107 mg/dL (70-99) Calcium Level 8.3 mg/dL (8.5-10.1) Phosphorus Level 4.3 mg/dL (2.6-4.7) Magnesium Level 2.2 mg/dL (1.8-2.4) Micro CT scan 08/04 IMPRESSION: 1. Mild wall thickening of the descending colon and sigmoid, nonspecific. Consider infectious or inflammatory colitis. 2. Diverticulosis of the sigmoid colon with no definite acute diverticulitis. Evaluation is somewhat limited in the absence of contrast material. 3. Small amount of free pelvic fluid, nonspecific. 4. Moderate size bilateral pleural effusions. Consolidation at both lung bases, likely passive atelectasis. Microbiology 07/14/18 Blood Culture - Final, Complete Objective Assessment MRSA bacteremia POA 07/14 (R tetra) - repeat BC 07/18 and 07/20 positive, BC neg from 07/24 and 07/28 - 2D echo neg vegetation; on 07/24 RAMON showed HD catheter w/ large mobile vegetation or thrombus (measuring at least 2.5 x 1.1 cm) extending into the RA. -s/p tunneled HDC line removal on 07/18. s/p replacement 07/23 C. difficile from 07/16 positive Bilat Pleural effusions Encephalopathy - ? 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
--- NOTE | 2018-08-05 10:30 | NUR ---
Spoke with Dr. Drake who indicated the patient would need to remain in the hospital at this time, due to declining status / plural effusion.
[2018-08-05 11:00] VITALS: BP 177/78
--- NOTE | 2018-08-05 11:05 | NUR ---
Spoke with Dr. Leslie who ordered a Pulmonology consult. Also, left a message for social work. Spoke with dialysis that patient will remain inpatient this shift.
--- NOTE | 2018-08-05 11:25 | PDOC ---
Renal-Progress Notes Subjective Notes Notes NONE History of Present Illness Hx of present illness STABLE, BETTER Vitals Vitals Vital Signs Date Time Temp Pulse Resp B/P (MAP) Pulse Ox O2 Delivery O2 Flow Rate FiO2 08/05/18 09:00 84 160/60 08/05/18 08:11 Room Air 08/05/18 07:00 98.1 18 95 98.1 Weight Weight [ ] I.O. Intake and Output Intake and Output 08/05/18 06:59 Intake Total 610 ml Balance 610 ml Tube Feeding 450 ml Other 160 ml # Voids 1 # Bowel Movements 2 Labs Labs Laboratory Tests Test 08/05/18 06:55 Sodium Level 146 mmol/L (136-145) Potassium Level 5.6 mmol/L (3.5-5.1) Chloride Level 114 mmol/L (98-107) Carbon Dioxide Level 22 mmol/L (21-32) Anion Gap 10 (6-14) Blood Urea Nitrogen 40 mg/dL (7-20) Creatinine 2.6 mg/dL (0.6-1.0) Estimated GFR (Cockcroft-Gault) 18.1 Glucose Level 107 mg/dL (70-99) Calcium Level 8.3 mg/dL (8.5-10.1) Phosphorus Level 4.3 mg/dL (2.6-4.7) Magnesium Level 2.2 mg/dL (1.8-2.4) Micro Micro Microbiology 07/28/18 Blood Culture - Final, Complete NO GROWTH AFTER 5 DAYS 07/14/18 Urine Culture - Final, Complete 07/14/18 Urine Culture Result 1 (MARYANN) - Final, Complete Review of Systems Constitutional: yes: alert, oriented Ears/Nose/Throat: Yes: no symptom reported Eyes: Yes: no symptom reported Pulmonary: Yes no symptom reported Cardiovascular: Yes no symptom reported Gastrointestional: Yes: no symptom reported Genitourinary: Yes: no symptom reported Musculoskeletal: Yes: no symptom reported Skin: Yes no symptom reported Psychiatric/Neurological: Yes: no symptom reported Endocrine: Yes: no symptom reported Hematologic/Lymphatic: Yes: no symptom reported Physical Exam General Appearance: no apparent distress Skin: warm Respiratory: decreased breath sounds Abdomen: soft, bowel sounds present Genitourinary: bladder flat Extremities: pulses present Neurology: alert, oriented, follow commands Assessment Assessment IMP ESRD ANEMIA BACTEREMIA PLAN ANTIBIOTICS HD TODAY UF TO DW WILL FOLLOW DEIDRA MINAYA MD Aug 05, 2018 11:25
--- NOTE | 2018-08-05 12:39 | NUR ---
This RN received a telephone call from nephyusuf Singh who called asking about patient status. Dr. Leslie was standing at the nurse station and also spoke with nephew: prognosis is poor and will address patient wishes with patient regarding palliative care; nutritional status is poor; healing is poor; fluid is present in the lungs; super bugs are present and continue infection. Patient will be made as comfortable as possible. Dr. Leslie recommends palliative care; however, ultimately it is the patient's wishes or DPOA by which to abide. Dr. Rahman performed a pulmonary consultation.
[2018-08-05] MEDS: TPN PER PHARMACY MC PRN ×2 (12:45→12:55)
--- NOTE | 2018-08-05 12:58 | NUR ---
Pharmacy TPN Dosing Note S: TYLER GUTIERREZ is a 72 year old F Currently receiving Central Continuous TPN started 08/02/18 B:Pertinent PMH: Malnutrition, poor PO intake Height: 5 feet, 3 inches Weight: 51.197571 kg Current diet: regular LABS: Sodium: 146 Potassium: 5.6 Chloride: 114 Calcium: 8.3 Corrected Calcium: 10.38 Magnesium: 2.2 CO2: 22 SCr: 2.6 Glucose: 107 Albumin: 1.4 AST: 15 ALT: 8 TPN FORMULA: TPN TYPE: Central Continuous AMINO ACIDS: 60 gm DEXTROSE: 195 gm LIPIDS: 20 gm SODIUM CHLORIDE: 90 mEq SODIUM ACETATE: 40 mEq SODIUM PHOSPHATE: 5 mmol POTASSIUM CHLORIDE: 50 mEq POTASSIUM ACETATE: 10 mEq POTASSIUM PHOSPHATE: mmol MAGNESIUM: 5 mEq CALCIUM: mEq INSULIN: units MULTIPLE VITAMIN: 10 ml TRACE ELEMENTS: MTE 5 1mL ml(s) TPN PLAN: CL LEVEL INCREASED, CHANGE NACL TO NAACETATE 40 MEQ, DECREASE NAPHOS TO 5MEQ, CHANGED KCL TO KACETATE 10 MEQ. R: Continue TPN at 42ml/hr Will monitor electrolytes, glucose, and tolerance to TPN. CASSY ESTEVES [facility], 08/05/18 [id number]
--- NOTE | 2018-08-05 12:59 | CONS ---
DATE OF CONSULTATION: PULMONARY CONSULTATION ATTENDING PHYSICIAN: Dr. Izquierdo. REASON FOR CONSULTATION: Pleural effusion. HISTORY OF PRESENT ILLNESS: The patient is a 72-year-old female who has very complicated past medical history and a declining hospital stay. She has been in the hospital for over 3 weeks. The patient has a history of cerebrovascular accident with vascular dementia and history of end-stage renal disease, on hemodialysis. She was hospitalized after she was noted to have significant anemia. Her hemoglobin was 5.6. She received packed RBCs. She has developed loose stools. She has positive blood cultures. The patient has been followed by Infectious Disease. She had echocardiogram which was negative for vegetation, but transesophageal echo showed hemodialysis catheter with large mobile vegetations extending into the RA. She had a tunneled hemodialysis catheter line removal and then replacement on 07/23/2018. She is positive for C. diff. She has encephalopathy and she has severe protein-calorie malnutrition. She had a CT abdomen done, which was reviewed by me, which was done on 07/31/2018 and it shows moderate bilateral pleural effusions with associated compressive atelectasis. There is also diverticulosis of the sigmoid colon. She is currently on room air. She is very restless and I am unable to obtain much history from the patient, but I reviewed the chart for her prolonged length of stay. PAST MEDICAL HISTORY: Significant for history of MRSA bacteremia; history of end-stage renal disease, on hemodialysis; history of vascular dementia; CVA; GI bleed; anemia and depression. PAST SURGICAL HISTORY: Cholecystectomy, hernia repair, tonsillectomy and hysterectomy. FAMILY HISTORY: Heart disease. SOCIAL HISTORY: Quit tobacco. Details of length of tobacco use not available. ALLERGIES: CODEINE. MEDICATIONS: All reviewed as listed in the MRAD. REVIEW OF SYSTEMS: System review unable to obtain from the patient. PHYSICAL EXAMINATION: GENERAL: She is very restless. VITAL SIGNS: Pulse ox 90% on 2 liters. Afebrile. Blood pressure on the high side, 177/78. NECK: Supple. LUNGS: With diminished breath sounds. CARDIOVASCULAR EXAMINATION: Regular rate and rhythm. ABDOMEN: Soft. EXTREMITIES: With trace pitting edema. LABORATORY DATA: Labs are reviewed. White cell count 9 with hemoglobin of 7.3 and platelets are 276,000. BUN 40, creatinine 2.6. Albumin is only 1.4. Her INR is 1.2. IMPRESSION: 1. Moderate bilateral pleural effusions. This is related to severe protein-calorie malnutrition with low oncotic pressure. The effusions are likely going to re- accumulative if drainage is pursued. However, at this point , her oxygen requirement is very minimal and I would recommend to monitor closely 2. End-stage renal disease, on hemodialysis. 3. Methicillin-resistant Staphylococcus aureus bacteremia, present on admission on 07/14/2018. 4. 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 5. Recurrent Clostridium difficile. 6. Severe protein-calorie malnutrition. 7. Encephalopathy. 8. Failure to thrive. RECOMMENDATIONS: 1. I have discussed with PCP and discussed with RN. The patient has declined over several days and has multiple chronic medical problems with decline. I would recommend that palliative care should be re-consulted and goals of care should be re-addressed and a conservative and supportive treatment with hospice should be considered. 2. In the meantime, I will hold off on thoracentesis as the fluid will reaccumulate due to her severe low oncotic pressure from very low albumin level. 3. Supportive care. 4. Hemodialysis for now. 5. Reconsult palliative care to discuss the goals of care. 6. Discussed with RN. Discussed with PCP ESTEPHANIA SHARP MD DR: WALKER/bethany JOB#: [id number] / [id number] TREVA
[2018-08-05] MEDS: POTASSIUM CHLORIDE 20 MEQ TABLET.ER. PO SCH (13:00)
[2018-08-05] MEDS: HYDROmorphone 2 MG/ML VIAL IVP PRN (13:29)
--- NOTE | 2018-08-05 15:12 | NUR ---
SW following. Discussed with RN, Dr. Leslie, and Dr. Rahman. Per Dr. Leslie, pt is declining and is not stable to discharge today. [facility] is still reviewing pt. DANIELE faxed facesheet to [facility] to determine if pt meets rev codes. RN, and Dr. Leslie trying to contact pt's DPOA in [place] to discuss palliative. SW will continue to follow.
[2018-08-05] MEDS: FOLIC/VIT B COMP W-C (RENAL) TABLET. PO SCH (17:12)
[2018-08-05] MEDS: VANCOMYCIN 500 MG in IV NORMAL SALINE 100ML 100 ML IV SCH (17:13)
[2018-08-05 19:00] VITALS: BP 154/72
[2018-08-05] MEDS: MIRTAZAPINE 15 MG TABLET PO SCH (21:00)
--- NOTE | 2018-08-05 21:44 | PDOC ---
PROGRESS NOTES Chief Complaint Chief Complaint Staph bacteremia 2D echo neg vegetation; on 07/24 RAMON showed HD catheter w/ large mobile vegetation or thrombus (measuring at least 2.5 x 1.1 cm) extending into the RA. -s/p tunneled HDC line removal on 07/18. s/p replacement 07/23 C. difficile from 07/16 positive ESRD on dialysis Anemia of ESRD Leukocytosis/sepsis C. difficile diarrhea has recurred Pseudomembranous colitis very likely DNR Hyponatremia secondary to low effective circulatory volume resolved Hypokalemia replacing as per nephrology Vascular dementia HTN Anxiety Depression noncompliance with PT/OT Severe protein calorie malnutrition due to poor oral intake Severe deconditioning that will require placement PLAN: CT of the abdomen and pelvis without contrast We'll check lipase Cont vanc iv and oral HD per renal supportive care encourage as much activity as tolerated follow cultures DNR pt/ot NEW PERMCATH placed on 07/28 Patient on TPN, poor nutritional status, hopefully will be able to discuss with DPOA goals of therapy, her poor prognosis and hoepfully transitioning to palliative care in light of her grim prognosis. History of Present Illness History of Present Illness 72 yo f w/ PMHx CVA with vascular dementia, HTN, anxiety, depression, end-stage renal disease on dialysis Saturday, Saturday, (new dx 2018), last dialyzed on Saturday who p/w fever, decreased appetite, fever, decreased energy/ weakness, symptoms began 3 days ago. Found with Hb of 5.6 in ED, transfused PRBC to 7.5. She was noted with loose stools as well. She has history dementia but she is alert to person only, but is able to carry on a conversation and give some health history. She does not refuse dialysis every day. She was seen here this past January 2018 and May 2018 and sent home with home health ([facility]). She has a DPOA, Ivy the nephew has been texting who has been informed of hospital admission. 07/15: Seen on dialysis today. She has some chills with this. Notably, lab called about 3/4 bottles positive on blood culture for GPC in clusters. 07/16: Feeling terrible today. Has diarrhea x2 POSITIVE FOR C. DIFFICILE. She has bilateral LQ pain. Started on oral vancomycin and continued on IV Vancomycin 07/17: Still with poor PO intake 07/18: HD catheter pulled. Culture looks like MRSA 07/19: Still not eating, started PPN. Still with repeat blood cultures 1/4 bottles positive 07/21 DECISION FOR PALLIATIVE CARE Needed GRAM POSITIVE COCCI IN CLUSTERS, SUGGESTIVE OF STAPH, IN 4 OF 5 BOTTLES, 3 SETS DRAWN ON 07/20/18. ALL 3 SETS ARE POSITIVE. Still with some loose stools. Positive 2/ repeat blood cultures after line was pulled. Denies SOB and CP. She does have some catheter site pain where it was pulled. 07/25 NONCOMPLIANT WITH PT/OT, BLOOD CUL PENDING, REPEAT, high risk of complications due to noncompliance per my personal review of chart 07/26 PERMCATH NONFUNCTIONAL. NEW PERMCATH SATURDAY refusing to eat lunch today, bp uncontrolled 07/27 still not eating well, noncompliant 07/28 NOT IMPROVED FAR COMPLIANCE, POOR APPETITE 07/28 Problem List (body system elements) * Impaired fnctnl mobility * Strength * Balance * Knowledge-safe techniques NEEDS SNF 07/29 Patient with no acute events reported overnight, patient with improving appetite, will see how much she is able to eat today and hopefully wean off procalamine. No fever chills diaphoresis reported. 07/30 patient with no acute events reported overnight. Continues to try to eat a little bit more, but still very debilitated. Reassurances been provided her diarrhea is slowly improving 07/31 patient very lethargic after dialysis seems to be her usual norm as per nursing staff, she is not eating much of her meals will readdress her nutritional status once she is more receptive for a conversation. 08/01 discussed nutritional status once again and will have a response later in the day once she has weighed in the pros and cons I have explained in detail regarding TPN, dobhoff tube and PEG tube options 08/02 patient will be started on TPN later in the day , seen during dailysis, no complaints, very debilitated unfortunately 08/03 no new complaints, patient hemodynamically stable, discussed with nursing staff, we will start making arrangements for transfer to SNF 08/04 patient in acute distress secondary to abdominal discomfort. Patient does not percent peritoneal signs but is definitely very tender in her abdomen. No fever or chills reported overnight laboratory data has been reviewed. Concern for recurrence of C. difficile given that she is again having diarrhea 08/05 patient very agitated, seen at dialysis she has declinced tremendously over the last 48 hours. I have tried to contact the power of securities attorney unsuccessfully to address goals of therapy Discussed these with nephew but he is unable to make decisions for the patient. Discussed with Pat, she is most likely at the end of the road. Appreciate Dr Rahman's recommendations regarding pleural effusion noted on CT from yesterday. Vitals Vitals Vital Signs Date Time Temp Pulse Resp B/P (MAP) Pulse Ox O2 Delivery O2 Flow Rate FiO2 08/05/18 19:31 95 Nasal Cannula 2.0 08/05/18 19:00 97.9 104 20 154/72 (99) 97.9 Physical Exam Physical Exam GENERAL: Lying down, NAD - awakens but less responsive HEENT: Normal conjunctivae. + dentures NECK: Supple. LUNGS: Clear to auscultation. HEART: S1, S2. ABDOMEN: Soft and less tender. No guarding or rebound. EXTREMITIES: No clubbing, cyanosis or gross edema. SKIN: Warm to touch, no signs of rash. NEUROLOGIC: Awake, responds appropriately Right chest hemodialysis catheter (07/23) clean Left-chest central line (08/01)clean General: Alert, Oriented X3, No acute distress, Other (poorly oriented) Heart: Regular rate, Normal S1 Lungs: Clear Abdomen: Normal bowel sounds, Soft, No tenderness Extremities: No clubbing, No cyanosis, Normal pulses Skin: No rashes, No significant lesion Labs LABS Laboratory Tests Test 08/05/18 06:55 Sodium Level 146 mmol/L (136-145) Potassium Level 5.6 mmol/L (3.5-5.1) Chloride Level 114 mmol/L (98-107) Carbon Dioxide Level 22 mmol/L (21-32) Anion Gap 10 (6-14) Blood Urea Nitrogen 40 mg/dL (7-20) Creatinine 2.6 mg/dL (0.6-1.0) Estimated GFR (Cockcroft-Gault) 18.1 Glucose Level 107 mg/dL (70-99) Calcium Level 8.3 mg/dL (8.5-10.1) Phosphorus Level 4.3 mg/dL (2.6-4.7) Magnesium Level 2.2 mg/dL (1.8-2.4) Review of Systems Review of Systems unable to obtain Assessment and Plan Assessmemt and Plan Problems Medical Problems: (1) End stage renal disease Status: Acute (2) Generalized weakness Status: Acute Comment Review of Relevant I have reviewed the following items linda (where applicable) has been applied. Labs Laboratory Tests Test 08/04/18 06:15 08/05/18 06:55 White Blood Count 9.3 x10^3/uL (4.0-11.0) Red Blood Count 2.63 x10^6/uL (3.50-5.40) Hemoglobin 7.3 g/dL (12.0-15.5) Hematocrit 22.7 % (36.0-47.0) Mean Corpuscular Volume 87 fL (79-100) Mean Corpuscular Hemoglobin 28 pg (25-35) Mean Corpuscular Hemoglobin Concent 32 g/dL (31-37) Red Cell Distribution Width 19.2 % (11.5-14.5) Platelet Count 276 x10^3/uL (140-400) Neutrophils (%) (Auto) 87 % (31-73) Lymphocytes (%) (Auto) 7 % (24-48) Monocytes (%) (Auto) 3 % (0-9) Eosinophils (%) (Auto) 3 % (0-3) Basophils (%) (Auto) 0 % (0-3) Neutrophils # (Auto) 8.1 x10^3uL (1.8-7.7) Lymphocytes # (Auto) 0.7 x10^3/uL (1.0-4.8) Monocytes # (Auto) 0.3 x10^3/uL (0.0-1.1) Eosinophils # (Auto) 0.3 x10^3/uL (0.0-0.7) Basophils # (Auto) 0.0 x10^3/uL (0.0-0.2) Segmented Neutrophils % 84 % (35-66) Band Neutrophils % 6 % (0-9) Lymphocytes % 7 % (24-48) Monocytes % 3 % (0-10) Platelet Estimate Adequate (ADEQUATE) Sodium Level 143 mmol/L (136-145) 146 mmol/L (136-145) Potassium Level 4.3 mmol/L (3.5-5.1) 5.6 mmol/L (3.5-5.1) Chloride Level 107 mmol/L (98-107) 114 mmol/L (98-107) Carbon Dioxide Level 22 mmol/L (21-32) 22 mmol/L (21-32) Anion Gap 14 (6-14) 10 (6-14) Blood Urea Nitrogen 24 mg/dL (7-20) 40 mg/dL (7-20) Creatinine 2.2 mg/dL (0.6-1.0) 2.6 mg/dL (0.6-1.0) Estimated GFR (Non- 24 (>59) Estimated GFR (Cockcroft-Gault) 22.0 18.1 Glucose Level 118 mg/dL (70-99) 107 mg/dL (70-99) Calcium Level 8.6 mg/dL (8.5-10.1) 8.3 mg/dL (8.5-10.1) Phosphorus Level 3.6 mg/dL (2.6-4.7) 4.3 mg/dL (2.6-4.7) Magnesium Level 2.1 mg/dL (1.8-2.4) 2.2 mg/dL (1.8-2.4) Albumin 1.4 g/dL (3.4-5.0) Triglycerides Level 69 mg/dL (0-150) Lipase 41 U/L (73-393) EGFR 27 (>59) PTH (Intact) Specimen Description Comment (.) Parathyroid Hormone (Intact) 107 pg/mL (15-65) Calcium (PTH Intact) 8.2 mg/dL (8.7-10.3) Creatinine (PTH Intact) 2.06 mg/dL (0.57-1.00) Phosphorus (PTH Intact) 3.7 mg/dL (2.5-4.5) Laboratory Tests Test 08/05/18 06:55 Sodium Level 146 mmol/L (136-145) Potassium Level 5.6 mmol/L (3.5-5.1) Chloride Level 114 mmol/L (98-107) Carbon Dioxide Level 22 mmol/L (21-32) Anion Gap 10 (6-14) Blood Urea Nitrogen 40 mg/dL (7-20) Creatinine 2.6 mg/dL (0.6-1.0) Estimated GFR (Cockcroft-Gault) 18.1 Glucose Level 107 mg/dL (70-99) Calcium Level 8.3 mg/dL (8.5-10.1) Phosphorus Level 4.3 mg/dL (2.6-4.7) Magnesium Level 2.2 mg/dL (1.8-2.4) Microbiology 07/28/18 Blood Culture - Final, Complete NO GROWTH AFTER 5 DAYS 07/14/18 Urine Culture - Final, Complete 07/14/18 Urine Culture Result 1 (MARYANN) - Final, Complete Medications Current Medications Piperacillin Sod/ Tazobactam Sod 4.5 gm/Sodium Chloride 100 ml @ 200 mls/hr 1X ONCE IV Last administered on 07/14/18at 15:58; Start 07/14/18 at 15:00; Stop 07/14/18 at 15:29; Status DC Vancomycin HCl (Vanco Per Pharmacy) 1 each PRN DAILY PRN MC SEE COMMENTS Last administered on 08/03/18at 11:14; Start 07/14/18 at 14:45 Vancomycin HCl 1.25 gm/Sodium Chloride 250 ml @ 166.667 mls/hr 1X ONCE IV Last administered on 07/14/18at 18:10; Start 07/14/18 at 15:00; Stop 07/14/18 at 16:29; Status DC Ondansetron HCl (Zofran) 4 mg PRN Q8HRS PRN IV NAUSEA/VOMITING; Start 07/14/18 at 17:15; Stop 07/15/18 at 17:14; Status DC Morphine Sulfate (Morphine Sulfate) 2 mg PRN Q2HR PRN IV PAIN; Start 07/14/18 at 17:15; Stop 07/15/18 at 17:14; Status DC Acetaminophen (Tylenol) 650 mg PRN Q4HRS PRN PO FEVER; Start 07/14/18 at 17:15 ; Stop 07/15/18 at 17:14; Status DC Vancomycin HCl (Vancomycin Random Level) 1 each 1X ONCE MC ; Start 07/15/18 at 06:00; Stop 07/15/18 at 06:01; Status DC Vitamin B Complex/ Vitamin C (Dinorah-Ralph) 1 tab QPM PO Last administered on 08/05at 17:12; Start 07/15/18 at 18:00 Megestrol Acetate (Megace) 40 mg BID PO Last administered on 08/05/18 09:06; Start 07/15/18 at 09:00 Mirtazapine (Remeron) 15 mg QHS PO Last administered on 08/03/18 21:10; Start 07/14/18 at 22:00 Non-Formulary Medication (Mirtazapine ) 1 tab QHS PO ; Start 07/15/18 at 21:00; Status UNV Ropinirole HCl (Requip) 3 mg BID PO Last administered on 07/16/18at 18:21; Start 07/14/18 at 22:00; Stop 07/16/18 at 19:54; Status DC Sertraline HCl (Zoloft) 100 mg DAILY PO Last administered on 08/05/18 09:07; Start 07/15/18 at 09:00 Phytonadione (Mephyton Oral Soln) 5 mg 1X ONCE PO Last administered on 22:14; Start 07/14/18 at 22:00; Stop 07/14/18 at 22:01; Status DC Vitamin B Complex (Folbic Tablet) 1 tab DAILY PO Last administered on at 17:52; Start 07/15/18 at 09:00 Albuterol/ Ipratropium (Duoneb) 3 ml RTBID NEB Last administered on 08/05/18 19:30; Start 07/15/18 at 08:00 Sodium Chloride 1,000 ml @ 1,000 mls/hr Q1H PRN IV hypotension; Start 07/15/18 at 10:48; Stop 07/15/18 at 16:47; Status DC Albumin Human 200 ml @ 200 mls/hr 1X PRN PRN IV Hypotension; Start 07/15/18 at 11:00; Stop 07/15/18 at 16:59; Status DC Sodium Chloride 1,000 ml @ 400 mls/hr Q2H30M PRN IV PATENCY; Start 07/15/18 at 10:48; Stop 07/15/18 at 22:47; Status DC Info (PHARMACY MONITORING -- do not chart) 1 each PRN DAILY PRN MC SEE COMMENTS ; Start 07/15/18 at 11:00; Status UNV Info (PHARMACY MONITORING -- do not chart) 1 each PRN DAILY PRN MC SEE COMMENTS ; Start 07/15/18 at 11:00; Stop 07/22/18 at 14:31; Status DC Vancomycin HCl 500 mg/Sodium Chloride 100 ml @ 100 mls/hr QTUTHSA IV Last administered on 07/17/18at 16:44; Start 07/17/18 at 16:00; Stop 07/18/18 at 15:41 ; Status DC Lactobacillus Rhamnosus (Culturelle) 1 cap BID PO Last administered on 09:07; Start 07/16/18 at 21:00 Clotrimazole (Mycelex) 10 mg 5XDAY MM Last administered on 07/28/18 05:48; Start 07/16/18 at 14:00; Stop 07/28/18 at 14:13; Status DC Ropinirole HCl (Requip) 3 mg DAILY PO Last administered on 08/05/18at 09:07; Start 07/17/18 at 09:00 Ropinirole HCl (Requip) 2 mg QHS PO Last administered on 08/03/18 21:10; Start 07/16/18 at 21:00 Ropinirole HCl (Requip) 1 mg PRN QEVNG PRN PO RLS Last administered on at 17:46; Start 07/16/18 at 20:00 Vancomycin HCl (Vancomycin Oral Solution) 125 mg Q6HRS PO Last administered on 08/05/18at 17:12; Start 07/17/18 at 00:00 Sodium Chloride 1,000 ml @ 1,000 mls/hr Q1H PRN IV hypotension; Start 07/17/18 at 14:55; Stop 07/17/18 at 20:54; Status DC Sodium Chloride 1,000 ml @ 400 mls/hr Q2H30M PRN IV PATENCY; Start 07/17/18 at 14:55; Stop 07/18/18 at 02:54; Status DC Info (PHARMACY MONITORING -- do not chart) 1 each PRN DAILY PRN MC SEE COMMENTS ; Start 07/17/18 at 15:00; Stop 07/17/18 at 15:00; Status DC Info (PHARMACY MONITORING -- do not chart) 1 each PRN DAILY PRN MC SEE COMMENTS ; Start 07/17/18 at 15:00; Stop 07/17/18 at 15:00; Status DC Sodium Chloride 1,000 ml @ 1,000 mls/hr Q1H PRN IV hypotension; Start 07/18/18 at 11:30; Stop 07/18/18 at 17:29; Status DC Sodium Chloride 1,000 ml @ 400 mls/hr Q2H30M PRN IV PATENCY; Start 07/18/18 at 11:30; Stop 07/18/18 at 23:29; Status DC Info (PHARMACY MONITORING -- do not chart) 1 each PRN DAILY PRN MC SEE COMMENTS ; Start 07/18/18 at 12:30; Status UNV Info (PHARMACY MONITORING -- do not chart) 1 each PRN DAILY PRN MC SEE COMMENTS ; Start 07/18/18 at 12:30; Status UNV Vancomycin HCl 500 mg/Sodium Chloride 100 ml @ 100 mls/hr 1X ONCE IV Last administered on 07/18/18at 16:40; Start 07/18/18 at 16:00; Stop 07/18/18 at 16:59 ; Status DC Amino Acids/ Glycerin/ Electrolytes 1,000 ml @ 80 mls/hr [id number] IV Last administered on 08/02/18at 16:31; Start 07/19/18 at 11:45; Stop 08/02/18 at 21:59; Status DC Potassium Chloride (Klor-Con) 40 meq AFTRNOON PO Last administered on at 14:25; Start 07/19/18 at 13:00 Vancomycin HCl 500 mg/Sodium Chloride 100 ml @ 100 mls/hr 1X ONCE IV ; Start 07/21/18 at 16:00; Stop 07/21/18 at 16:59; Status Cancel Acetaminophen/ Hydrocodone Bitart (Lortab 5/325) 1 tab PRN Q6HRS PRN PO SEVERE PAIN; Start 07/19/18 at 20:00 Sodium Chloride 1,000 ml @ 1,000 mls/hr Q1H PRN IV hypotension; Start 07/21/18 at 12:29; Stop 07/21/18 at 18:28; Status DC Sodium Chloride (Normal Saline Flush) 10 ml 1X PRN PRN IV AP catheter pack; Start 07/21/18 at 12:30; Stop 07/22/18 at 12:29; Status DC Sodium Chloride (Normal Saline Flush) 10 ml 1X PRN PRN IV SILO PAINTER catheter pack; Start 07/21/18 at 12:30; Stop 07/22/18 at 12:29; Status DC Sodium Chloride 1,000 ml @ 400 mls/hr Q2H30M PRN IV PATENCY; Start 07/21/18 at 12:29; Stop 07/22/18 at 00:28; Status DC Info (PHARMACY MONITORING -- do not chart) 1 each PRN DAILY PRN MC SEE COMMENTS ; Start 07/21/18 at 12:30; Status UNV Info (PHARMACY MONITORING -- do not chart) 1 each PRN DAILY PRN MC SEE COMMENTS ; Start 07/21/18 at 12:30; Status Cancel Vancomycin HCl 750 mg/Sodium Chloride 250 ml @ 250 mls/hr 1X ONCE IV ; Start 07/21/18 at 16:00; Stop 07/21/18 at 16:59; Status Cancel Vancomycin HCl 500 mg/Sodium Chloride 100 ml @ 100 mls/hr 1X ONCE IV Last administered on 07/21/18at 21:35; Start 07/21/18 at 18:30; Stop 07/21/18 at 19:29 ; Status DC Lidocaine/ Epinephrine (LIDOCAINE 1%-EPI 1:100,000 Multi-Dose) 20 ml STK-MED ONCE .ROUTE ; Start 07/22/18 at 11:46; Stop 07/22/18 at 11:47; Status DC Cefazolin Sodium 50 ml @ As Directed STK-MED ONCE IV ; Start 07/22/18 at 12:45; Stop 07/22/18 at 12:46; Status DC Midazolam HCl (Versed) 2 mg STK-MED ONCE .ROUTE ; Start 07/22/18 at 12:45; Stop 07/22/18 at 12:46; Status DC Fentanyl Citrate (Fentanyl 2ml Vial) 100 mcg STK-MED ONCE .ROUTE ; Start at 12:45; Stop 07/22/18 at 12:46; Status DC Vancomycin HCl 500 mg/Sodium Chloride 100 ml @ 100 mls/hr QTUTHSA IV Last administered on 07/24/18at 18:27; Start 07/22/18 at 16:00; Stop 07/26/18 at 14:45 ; Status DC Midazolam HCl (Versed) 2 mg 1X ONCE IV Last administered on 07/22/18at 13:28; Start 07/22/18 at 13:30; Stop 07/22/18 at 13:31; Status DC Fentanyl Citrate (Fentanyl 2ml Vial) 100 mcg 1X ONCE IV Last administered on at 13:27; Start 07/22/18 at 13:30; Stop 07/22/18 at 13:31; Status DC Lidocaine HCl (Lidocaine 1% 20ml Vial) 20 ml 1X ONCE INJ Last administered on 07/22/18at 13:27; Start 07/22/18 at 13:30; Stop 07/22/18 at 13:31; Status DC Ceftaroline Fosamil 400 mg/ Sodium Chloride 250 ml @ 250 mls/hr Q12HR IV Last administered on 08/04/18at 21:59; Start 07/22/18 at 14:00; Stop 08/05/18 at 10:27 ; Status DC Darbepoetin Avery (Aranesp) 60 mcg [id number] SQ Last administered on 07/29/18at 20: 23; Start 07/22/18 at 21:00 Sodium Chloride 1,000 ml @ 1,000 mls/hr Q1H PRN IV hypotension; Start 07/22/18 at 15:20; Stop 07/22/18 at 21:19; Status DC Albumin Human 200 ml @ 200 mls/hr 1X PRN PRN IV Hypotension; Start 07/22/18 at 15:30; Stop 07/22/18 at 21:29; Status DC Acetaminophen (Tylenol) 500 mg 1X PRN PRN PO MILD PAIN / TEMP; Start 07/22/18 at 15:30; Stop 07/23/18 at 15:29; Status DC Diphenhydramine HCl (Benadryl) 25 mg 1X PRN PRN IV ITCHING; Start 07/22/18 at 15:30; Stop 07/23/18 at 15:29; Status DC Diphenhydramine HCl (Benadryl) 25 mg 1X PRN PRN IV ITCHING; Start 07/22/18 at 15:30; Stop 07/23/18 at 15:29; Status DC Sodium Chloride (Normal Saline Flush) 10 ml 1X PRN PRN IV AP catheter pack; Start 07/22/18 at 15:30; Stop 07/23/18 at 15:29; Status DC Sodium Chloride (Normal Saline Flush) 10 ml 1X PRN PRN IV SILO PAINTER catheter pack; Start 07/22/18 at 15:30; Stop 07/23/18 at 15:29; Status DC Sodium Chloride 1,000 ml @ 400 mls/hr Q2H30M PRN IV PATENCY; Start 07/22/18 at 15:20; Stop 07/23/18 at 03:19; Status DC Info (PHARMACY MONITORING -- do not chart) 1 each PRN DAILY PRN MC SEE COMMENTS ; Start 07/22/18 at 15:30; Stop 07/22/18 at 15:30; Status DC Sodium Chloride 1,000 ml @ 1,000 mls/hr Q1H PRN IV hypotension; Start 07/23/18 at 07:00; Stop 07/23/18 at 12:59; Status DC Sodium Chloride 1,000 ml @ 400 mls/hr Q2H30M PRN IV PATENCY; Start 07/23/18 at 07:00; Stop 07/23/18 at 18:59; Status DC Info (PHARMACY MONITORING -- do not chart) 1 each PRN DAILY PRN MC SEE COMMENTS ; Start 07/23/18 at 09:00; Status UNV Info (PHARMACY MONITORING -- do not chart) 1 each PRN DAILY PRN MC SEE COMMENTS ; Start 07/23/18 at 09:00; Stop 08/03/18 at 08:27; Status DC Labetalol HCl (Normodyne Iv Push) 10 mg PRN Q2HR PRN IVP HYPERTENSION, SEE COMMENTS; Start 07/23/18 at 09:30 Acetaminophen (Tylenol) 500 mg PRN Q6HRS PRN PO MILD PAIN / TEMP; Start at 09:30 Ondansetron HCl (Zofran) 4 mg PRN Q6HRS PRN IV NAUSEA/VOMITING Last administered on 07/26/18 16:17; Start 07/23/18 at 09:30 Ondansetron HCl (Zofran Odt) 4 mg PRN Q6HRS PRN PO NAUSEA/VOMITING Last administered on 07/26/18at 16:12; Start 07/23/18 at 09:30 Tramadol HCl (Ultram) 50 mg PRN Q6HRS PRN PO MODERATE PAIN Last administered on 08/04/18at 14:24; Start 07/23/18 at 09:30 Amlodipine Besylate (Norvasc) 10 mg DAILY PO Last administered on 08/04/18at 09: 14; Start 07/23/18 at 09:00 Ondansetron HCl (Zofran) 4 mg PRN Q6HRS PRN IV NAUSEA/VOMITING; Start 07/24/18 at 07:00; Stop 07/25/18 at 06:59; Status DC Fentanyl Citrate (Fentanyl 2ml Vial) 25 mcg PRN Q5MIN PRN IV MILD PAIN; Start 07/24/18 at 07:00; Stop 07/25/18 at 06:59; Status DC Fentanyl Citrate (Fentanyl 2ml Vial) 50 mcg PRN Q5MIN PRN IV MODERATE TO SEVERE PAIN; Start 07/24/18 at 07:00; Stop 07/25/18 at 06:59; Status DC Ringer's Solution 1,000 ml @ 30 mls/hr Q24H IV ; Start 07/24/18 at 07:00; Stop 07/24/18 at 18:59; Status DC Lidocaine HCl (Xylocaine-Mpf 1% 2ml Vial) 2 ml PRN 1X PRN ID PRIOR TO IV START ; Start 07/24/18 at 07:00; Stop 07/25/18 at 06:59; Status DC Prochlorperazine Edisylate (Compazine) 5 mg PACU PRN PRN IV NAUSEA, MRX1; Start 07/24/18 at 07:00; Stop 07/25/18 at 06:59; Status DC Vancomycin HCl 500 mg/Sodium Chloride 100 ml @ 100 mls/hr ONCE ONCE IV Last administered on 07/23/18at 17:23; Start 07/23/18 at 16:00; Stop 07/23/18 at 16:59 ; Status DC Nystatin (Mycostatin) 1 rolly BID TP Last administered on 08/05/18at 09:07; Start 07/23/18 at 21:00 Benzocaine (Hurricaine One) 1 spray STK-MED ONCE .ROUTE ; Start 07/24/18 at 11: 49; Stop 07/24/18 at 11:50; Status Cancel Lidocaine HCl (Viscous Lidocaine) 15 ml STK-MED ONCE .ROUTE ; Start 07/24/18 at 11:49; Stop 07/24/18 at 11:50; Status DC Lidocaine HCl (Xylocaine 2% Topical 5gm Tube) 1 rolly 1X ONCE TP ; Start at 12:00; Stop 07/24/18 at 12:01; Status DC Lidocaine HCl (Viscous Lidocaine) 15 ml 1X ONCE SWSW Last administered on 07/24at 13:12; Start 07/24/18 at 12:00; Stop 07/24/18 at 12:01; Status DC Benzocaine (Hurricaine One) 3 spray 1X ONCE MM Last administered on 07/24/18at 13:11; Start 07/24/18 at 12:00; Stop 07/24/18 at 12:01; Status DC Lidocaine HCl (Glydo (Lidocaine) Jelly) 1 rolly 1X ONCE MM Last administered on 07/24/18at 13:10; Start 07/24/18 at 12:00; Stop 07/24/18 at 12:01; Status DC Sodium Chloride 1,000 ml @ 1,000 mls/hr Q1H PRN IV hypotension; Start 07/24/18 at 13:36; Stop 07/24/18 at 19:35; Status DC Albumin Human 200 ml @ 200 mls/hr 1X PRN PRN IV Hypotension; Start 07/24/18 at 13:45; Stop 07/24/18 at 19:44; Status DC Acetaminophen (Tylenol) 500 mg 1X PRN PRN PO MILD PAIN / TEMP; Start 07/24/18 at 13:45; Stop 07/25/18 at 13:44; Status DC Diphenhydramine HCl (Benadryl) 25 mg 1X PRN PRN IV ITCHING; Start 07/24/18 at 13:45; Stop 07/25/18 at 13:44; Status DC Diphenhydramine HCl (Benadryl) 25 mg 1X PRN PRN IV ITCHING; Start 07/24/18 at 13:45; Stop 07/25/18 at 13:44; Status DC Sodium Chloride (Normal Saline Flush) 10 ml 1X PRN PRN IV AP catheter pack; Start 07/24/18 at 13:45; Stop 07/25/18 at 13:44; Status DC Sodium Chloride (Normal Saline Flush) 10 ml 1X PRN PRN IV SILO PAINTER catheter pack; Start 07/24/18 at 13:45; Stop 07/25/18 at 13:44; Status DC Sodium Chloride 1,000 ml @ 400 mls/hr Q2H30M PRN IV PATENCY; Start 07/24/18 at 13:36; Stop 07/25/18 at 01:35; Status DC Info (PHARMACY MONITORING -- do not chart) 1 each PRN DAILY PRN MC SEE COMMENTS ; Start 07/24/18 at 13:45; Stop 07/24/18 at 13:45; Status DC Propofol (Diprivan) 200 mg STK-MED ONCE IV ; Start 07/24/18 at 13:00; Stop at 08:16; Status DC Loperamide HCl (Imodium) 2 mg 1X ONCE PO Last administered on 07/25/18at 12:47; Start 07/25/18 at 11:15; Stop 07/25/18 at 11:16; Status DC Vancomycin HCl 500 mg/Sodium Chloride 100 ml @ 100 mls/hr QTUTHSA IV ; Start at 16:00; Stop 07/29/18 at 16:00; Status DC Vancomycin HCl (Vancomycin Random Level) 1 each 1X ONCE MC Last administered on 07/27/18at 06:00; Start 07/27/18 at 06:00; Stop 07/27/18 at 06:02; Status DC Simethicone (Gas-X) 80 mg PRN AFTMEALHC PRN PO GAS / BLOATING Last administered on 07/26/18at 16:12; Start 07/26/18 at 15:45 Lidocaine/ Epinephrine (LIDOCAINE 1%-EPI 1:100,000 Multi-Dose) 20 ml STK-MED ONCE .ROUTE ; Start 07/28/18 at 10:36; Stop 07/28/18 at 10:37; Status DC Heparin Sodium (Porcine) (Heparin Sodium) 10,000 unit STK-MED ONCE .ROUTE ; Start 07/28/18 at 10:38; Stop 07/28/18 at 10:39; Status DC Heparin Sodium/ Sodium Chloride 0 ml @ As Directed STK-MED ONCE .ROUTE ; Start 07/28/18 at 10:39; Stop 07/28/18 at 10:40; Status DC Sodium Chloride 1,000 ml @ 1,000 mls/hr Q1H PRN IV hypotension; Start 07/28/18 at 12:54; Stop 07/28/18 at 18:53; Status DC Sodium Chloride (Normal Saline Flush) 10 ml 1X PRN PRN IV AP catheter pack; Start 07/28/18 at 13:00; Stop 07/29/18 at 12:59; Status DC Sodium Chloride (Normal Saline Flush) 10 ml 1X PRN PRN IV SILO PAINTER catheter pack; Start 07/28/18 at 13:00; Stop 07/29/18 at 12:59; Status DC Info (PHARMACY MONITORING -- do not chart) 1 each PRN DAILY PRN MC SEE COMMENTS ; Start 07/28/18 at 13:00; Status UNV Info (PHARMACY MONITORING -- do not chart) 1 each PRN DAILY PRN MC SEE COMMENTS ; Start 07/28/18 at 13:00; Stop 07/29/18 at 07:20; Status DC Vancomycin HCl 500 mg/Sodium Chloride 100 ml @ 100 mls/hr QMWF IV Last administered on 07/30/18at 16:11; Start 07/28/18 at 16:00; Stop 07/31/18 at 14:28; Status DC Sodium Chloride 1,000 ml @ 1,000 mls/hr Q1H PRN IV hypotension; Start 07/29/18 at 07:02; Stop 07/29/18 at 13:01; Status DC Albumin Human 200 ml @ 200 mls/hr 1X PRN PRN IV Hypotension; Start 07/29/18 at 07:15; Stop 07/29/18 at 13:14; Status DC Acetaminophen (Tylenol) 500 mg 1X PRN PRN PO MILD PAIN / TEMP; Start 07/29/18 at 07:15; Stop 07/30/18 at 07:14; Status DC Diphenhydramine HCl (Benadryl) 25 mg 1X PRN PRN IV ITCHING; Start 07/29/18 at 07 :15; Stop 07/30/18 at 07:14; Status DC Diphenhydramine HCl (Benadryl) 25 mg 1X PRN PRN IV ITCHING; Start 07/29/18 at 07 :15; Stop 07/30/18 at 07:14; Status DC Sodium Chloride 1,000 ml @ 400 mls/hr Q2H30M PRN IV PATENCY; Start 07/29/18 at 07:02; Stop 07/29/18 at 19:01; Status DC Info (PHARMACY MONITORING -- do not chart) 1 each PRN DAILY PRN MC SEE COMMENTS ; Start 07/29/18 at 07:15; Stop 07/29/18 at 07:19; Status DC Sodium Chloride 1,000 ml @ 1,000 mls/hr Q1H PRN IV hypotension; Start 07/31/18 at 08:36; Stop 07/31/18 at 14:35; Status DC Sodium Chloride 1,000 ml @ 400 mls/hr Q2H30M PRN IV PATENCY; Start 07/31/18 at 08:36; Stop 07/31/18 at 20:35; Status DC Info (PHARMACY MONITORING -- do not chart) 1 each PRN DAILY PRN MC SEE COMMENTS ; Start 07/31/18 at 08:45; Status UNV Vancomycin HCl 500 mg/Sodium Chloride 100 ml @ 100 mls/hr QTUTHSA IV Last administered on 08/05/18at 17:13; Start 07/31/18 at 16:00 Vancomycin HCl (Vancomycin Random Level) 1 each 1X ONCE MC Last administered on 08/02/18at 05:00; Start 08/02/18 at 05:00; Stop 08/02/18 at 05:01; Status DC Lidocaine/ Epinephrine (LIDOCAINE 1%-EPI 1:100,000 Multi-Dose) 20 ml STK-MED ONCE .ROUTE ; Start 08/01/18 at 14:59; Stop 08/01/18 at 15:00; Status DC Heparin Sodium (Porcine) (Hep Lock Adult) 500 unit STK-MED ONCE IV ; Start at 14:59; Stop 08/01/18 at 15:00; Status DC Lidocaine/ Epinephrine (LIDOCAINE 1%-EPI 1:100,000 Multi-Dose) 20 ml 1X ONCE IJ Last administered on 08/01/18at 15:30; Start 08/01/18 at 15:30; Stop 08/01/18 at 15:31; Status DC Heparin Sodium (Porcine) (Hep Lock Adult) 500 unit 1X ONCE IV Last administered on 08/01/18at 15:30; Start 08/01/18 at 15:30; Stop 08/01/18 at 15:31; Status DC Info (Tpn Per Pharmacy) 1 each PRN DAILY PRN MC SEE COMMENTS Last administered on 08/05/18at 12:55; Start 08/01/18 at 16:30 Sodium Chloride 1,000 ml @ 1,000 mls/hr Q1H PRN IV hypotension; Start 08/02/18 at 08:14; Stop 08/02/18 at 14:13; Status DC Heparin Sodium (Porcine) (Heparin Sodium) 2,000 unit 1X PRN PRN INT CAT AP catheter pack; Start 08/02/18 at 08:15; Stop 08/03/18 at 08:14; Status DC Heparin Sodium (Porcine) (Heparin Sodium) 2,000 unit 1X PRN PRN INT CAT SILO PAINTER catheter pack; Start 08/02/18 at 08:15; Stop 08/03/18 at 08:14; Status DC Info (PHARMACY MONITORING -- do not chart) 1 each PRN DAILY PRN MC SEE COMMENTS ; Start 08/02/18 at 08:15; Status UNV Info (PHARMACY MONITORING -- do not chart) 1 each PRN DAILY PRN MC SEE COMMENTS ; Start 08/02/18 at 08:15 Sodium Chloride 90 meq/Sodium Phosphate 13.6 mmol/Potassium Chloride 50 meq/ Magnesium Sulfate 10 meq/ Multivitamins 10 ml/Chromium/ Copper/Manganese/ Seleni /Zn 1 ml/ Total Parenteral Nutrition/Amino Acids/Dextrose/ Fat Emulsion Intravenous 1,008 ml @ 42 mls/hr TPN CONT IV Last administered on 08/02/18at 22 :04; Start 08/02/18 at 22:00; Stop 08/03/18 at 21:59; Status DC Sodium Phosphate 15 mmol/Dextrose 255 ml @ 63.75 mls/ hr 1X ONCE IV Last administered on 08/03/18at 11:35; Start 08/03/18 at 11:30; Stop 08/03/18 at 15:29 ; Status DC Sodium Chloride 90 meq/Sodium Phosphate 20 mmol/ Potassium Chloride 50 meq/ Magnesium Sulfate 5 meq/ Multivitamins 10 ml/Chromium/ Copper/Manganese/ Seleni/ Zn 1 ml/ Total Parenteral Nutrition/Amino Acids/Dextrose/ Fat Emulsion Intravenous 1,008 ml @ 42 mls/hr TPN CONT IV Last administered on 08/03/18at 21:22; Start 08/03/18 at 22:00; Stop 08/04/18 at 21:59; Status DC Sodium Chloride 90 meq/Sodium Phosphate 10 mmol/ Potassium Chloride 50 meq/ Magnesium Sulfate 5 meq/ Multivitamins 10 ml/Chromium/ Copper/Manganese/ Seleni/ Zn 1 ml/ Total Parenteral Nutrition/Amino Acids/Dextrose/ Fat Emulsion Intravenous 1,008 ml @ 42 mls/hr TPN CONT IV Last administered on 08/04/18at 21:59; Start 08/04/18 at 22:00; Stop 08/05/18 at 21:59 Sodium Chloride 1,000 ml @ 1,000 mls/hr Q1H PRN IV hypotension; Start 08/05/18 at 09:09; Stop 08/05/18 at 15:08; Status DC Albumin Human 200 ml @ 200 mls/hr 1X PRN PRN IV Hypotension; Start 08/05/18 at 09:15; Stop 08/05/18 at 15:14; Status DC Acetaminophen (Tylenol) 500 mg 1X PRN PRN PO MILD PAIN / TEMP; Start 08/05/18 at 09:15; Stop 08/06/18 at 09:14 Diphenhydramine HCl (Benadryl) 25 mg 1X PRN PRN IV ITCHING; Start 08/05/18 at 09:15; Stop 08/06/18 at 09:14 Diphenhydramine HCl (Benadryl) 25 mg 1X PRN PRN IV ITCHING; Start 08/05/18 at 09:15; Stop 08/06/18 at 09:14 Sodium Chloride (Normal Saline Flush) 10 ml 1X PRN PRN IV AP catheter pack; Start 08/05/18 at 09:15; Stop 08/06/18 at 09:14 Sodium Chloride (Normal Saline Flush) 10 ml 1X PRN PRN IV SILO PAINTER catheter pack; Start 08/05/18 at 09:15; Stop 08/06/18 at 09:14 Sodium Chloride 1,000 ml @ 400 mls/hr Q2H30M PRN IV PATENCY; Start 08/05/18 at 09:09; Stop 08/05/18 at 21:08; Status DC Info (PHARMACY MONITORING -- do not chart) 1 each PRN DAILY PRN MC SEE COMMENTS ; Start 08/05/18 at 09:15; Stop 08/05/18 at 09:19; Status DC Lorazepam (Ativan) 0.5 mg PRN Q6HRS PRN IV ANXIETY / AGITATION Last administered on 08/05/18at 13:30; Start 08/05/18 at 12:30 Sodium Acetate 40 meq/Sodium Phosphate 5 mmol/ Potassium Acetate 10 meq/ Magnesium Sulfate 5 meq/ Multivitamins 10 ml/Chromium/ Copper/Manganese/ Seleni/ Zn 1 ml/ Total Parenteral Nutrition/Amino Acids/Dextrose/ Fat Emulsion Intravenous 1,008 ml @ 42 mls/hr TPN CONT IV ; Start 08/05/18 at 22:00; Stop 08/06/18 at 21:59 Hydromorphone HCl (Dilaudid) 0.5 mg PRN Q4HRS PRN IVP PAIN Last administered on 08/05/18at 13:29; Start 08/05/18 at 13:00 Active Scripts Active Reported Dialyvite Tablet (Folic Acid/Vitamin B Comp W-C) 1 Each Tablet 1 Each PO QPM QPM @ 1900 [hectorol] QTUTHSA [epogen] QTUTHSA Mirtazapine 15 Mg Tablet 1 Tab PO QHS Zoloft (Sertraline Hcl) 100 Mg Tablet 1 Tab PO DAILY Requip (Ropinirole Hcl) 1 Mg Tablet 3 Mg PO BID Mirtazapine 15 Mg Tablet 1 Tab PO QHS Megestrol Acetate 40 Mg Tablet 40 Mg PO BID Vitals/I & O Vital Sign - Last 24 Hours 08/04/18 08/05/18 08/05/18 08/05/18 23:00 03:00 07:00 08:00 Temp 99.3 98.1 98.1 99.3 98.1 98.1 Pulse 86 87 84 Resp 20 22 18 B/P (MAP) 164/63 (96) 99/77 (84) 160/60 (93) Pulse Ox 93 94 95 O2 Delivery Room Air Room Air O2 Flow Rate 2.0 08/05/18 08/05/18 08/05/18 08/05/18 08:11 09:00 11:00 13:29 Temp 97.8 97.8 Pulse 84 110 Resp 20 B/P (MAP) 160/60 177/78 (111) Pulse Ox 90 90 O2 Delivery Room Air Nasal Cannula Room Air O2 Flow Rate 2.0 2.0 08/05/18 08/05/18 08/05/18 13:59 19:00 19:31 Temp 97.9 97.9 Pulse 104 Resp 20 B/P (MAP) 154/72 (99) Pulse Ox 90 90 95 O2 Delivery Room Air Nasal Cannula O2 Flow Rate 2.0 2.0 Intake and Output 08/04/18 08/04/18 08/05/18 14:59 22:59 06:59 Intake Total 610 ml Balance 610 ml Nutrition Consultation Dietary Evaluation: Recommendations by RD: PPN/TPN, Add supplement feedings Comments: day 2 TPN continue Diet per VICE PRESIDENT OF COMMUNICATIONS, renal and encourage intake of renal suppelements Expected Outcomes/Goals: po intake to improve to 50% of meals- goal ongoing Interpretation of weight loss: >1-2% in 1 week Malnutrition Findings: Food and Nutrition Intake (Sev: <50% est energy req 5days Body Fat Depletion (Non Severe: Mod to Severe Weight Status: Underweight TESS BOURNE MD Aug 05, 2018 21:44
[2018-08-05] MEDS: DARBEPOETIN ALFA 60 MCG/0.3 ML DISP.SYRIN. SQ SCH (21:51)
[2018-08-05] MEDS ORDERED: [UNRECOGNIZED DRUG - OTHER] IV SCH ×9 (22:00)
[2018-08-05] MEDS ORDERED: AMINO ACID IV SCH ×9 (22:00)
[2018-08-05] MEDS ORDERED: TOTAL PARENTERAL NUTRITION IV SCH ×9 (22:00)
[2018-08-05] MEDS ORDERED: DEXTROSE 70% IV SCH ×9 (22:00)
[2018-08-05 23:00] VITALS: BP 130/63
--- NOTE | 2018-08-06 00:20 | NUR ---
Patient has refused to open her mouth to take medications at this time. This RN will continue to monitor the patient at this time.
[2018-08-06 03:00] VITALS: BP 123/48
[2018-08-06] MEDS: VANCOMYCIN 125 MG/2.5 ML ORAL SOLUTION. PO SCH ×4 (06:00→16:20)
[2018-08-06 07:00] VITALS: BP 124/59
[2018-08-06] MEDS: IPRATRPIUM/ALBUTEROL 0.5/2.5MG 3 ML NEBU. NEB SCH ×2 (08:22→19:57)
[2018-08-06] MEDS: rOPINIRole 1 MG TABLET. PO SCH ×2 (09:00→21:00)
[2018-08-06] MEDS: NYSTATIN 100,000 UNIT/GM TOPICAL CREAM 15GM TUBE. TP SCH ×2 (09:00→21:41)
[2018-08-06] MEDS: VITAMIN B12,B9,B6 COMPLEX 1 TABLET. PO SCH (09:00)
[2018-08-06] MEDS: amLODIPine BESYLATE 10 MG TABLET PO SCH (09:00)
[2018-08-06] MEDS: MEGESTROL 20 MG TABLET. PO SCH ×2 (09:00→21:00)
[2018-08-06] MEDS: SERTRALINE 50 MG TABLET. PO SCH (09:00)
[2018-08-06] MEDS: LACTOBACILLUS RHAMNOSUS GG 1 CAPSULE. PO SCH ×2 (09:00→21:00)
--- NOTE | 2018-08-06 10:03 | PDOC ---
PROGRESS NOTES Chief Complaint Chief Complaint Staph bacteremia 2D echo neg vegetation; on 07/24 RAMON showed HD catheter w/ large mobile vegetation or thrombus (measuring at least 2.5 x 1.1 cm) extending into the RA. -s/p tunneled HDC line removal on 07/18. s/p replacement 07/23 C. difficile from 07/16 positive ESRD on dialysis Anemia of ESRD Leukocytosis/sepsis C. difficile diarrhea has recurred Pseudomembranous colitis very likely DNR Hyponatremia secondary to low effective circulatory volume resolved Hypokalemia replacing as per nephrology Vascular dementia HTN Anxiety Depression noncompliance with PT/OT Severe protein calorie malnutrition due to poor oral intake Severe deconditioning that will require placement NEW PERMCATH placed on 07/28 Patient on TPN, poor nutritional status, hopefully will be able to discuss with DPOA goals of therapy, her poor prognosis and hoepfully transitioning to palliative care in light of her grim prognosis. History of Present Illness History of Present Illness almost no PO intake, had been planned for SNU, now seems too ill, confused, agitated would recommend hospice or palliative, DPOA has not wanted to meet with Palliative care consider Ethics, . 07/15: Seen on dialysis today. She has some chills with this. Notably, lab called about 3/4 bottles positive on blood culture for GPC in clusters. 07/16: Feeling terrible today. Has diarrhea x2 POSITIVE FOR C. DIFFICILE. She has bilateral LQ pain. Started on oral vancomycin and continued on IV Vancomycin 07/17: Still with poor PO intake 07/18: HD catheter pulled. Culture looks like MRSA 07/19: Still not eating, started PPN. Still with repeat blood cultures 1/4 bottles positive 07/21 DECISION FOR PALLIATIVE CARE Needed GRAM POSITIVE COCCI IN CLUSTERS, SUGGESTIVE OF STAPH, IN 4 OF 5 BOTTLES, 3 SETS DRAWN ON 07/20/18. ALL 3 SETS ARE POSITIVE. Still with some loose stools. Positive 2/4 repeat blood cultures after line was pulled. Denies SOB and CP. She does have some catheter site pain where it was pulled. 07/25 NONCOMPLIANT WITH PT/OT, BLOOD CUL PENDING, REPEAT, high risk of complications due to noncompliance per my personal review of chart 07/26 PERMCATH NONFUNCTIONAL. NEW PERMCATH SATURDAY refusing to eat lunch today, bp uncontrolled 07/27 still not eating well, noncompliant 3 NOT IMPROVED FAR COMPLIANCE, POOR APPETITE 3 Problem List (body system elements) * Impaired fnctnl mobility * Strength * Balance * Knowledge-safe techniques NEEDS SNF 07/29 Patient with no acute events reported overnight, patient with improving appetite, will see how much she is able to eat today and hopefully wean off procalamine. No fever chills diaphoresis reported. 07/30 patient with no acute events reported overnight. Continues to try to eat a little bit more, but still very debilitated. Reassurances been provided her diarrhea is slowly improving 07/31 patient very lethargic after dialysis seems to be her usual norm as per nursing staff, she is not eating much of her meals will readdress her nutritional status once she is more receptive for a conversation. 08/01 discussed nutritional status once again and will have a response later in the day once she has weighed in the pros and cons I have explained in detail regarding TPN, dobhoff tube and PEG tube options 08/02 patient will be started on TPN later in the day , seen during dailysis, no complaints, very debilitated unfortunately 08/03 no new complaints, patient hemodynamically stable, discussed with nursing staff, we will start making arrangements for transfer to SNF 08/04 patient in acute distress secondary to abdominal discomfort. Patient does not percent peritoneal signs but is definitely very tender in her abdomen. No fever or chills reported overnight laboratory data has been reviewed. Concern for recurrence of C. difficile given that she is again having diarrhea 08/05 patient very agitated, seen at dialysis she has declinced tremendously over the last 48 hours. I have tried to contact the power of privacy attorney unsuccessfully to address goals of therapy Discussed these with nephew but he is unable to make decisions for the patient. Discussed with Pat, she is most likely at the end of the road. Appreciate Dr Rahman's recommendations regarding pleural effusion noted on CT from yesterday. Vitals Vitals Vital Signs Date Time Temp Pulse Resp B/P (MAP) Pulse Ox O2 Delivery O2 Flow Rate FiO2 08/06/18 08:24 94 Nasal Cannula 3.0 08/06/18 07:00 98.2 87 18 124/59 (80) 98.2 Physical Exam Physical Exam GENERAL: Lying down, NAD - awakens but less responsive HEENT: Normal conjunctivae. + dentures NECK: Supple. LUNGS: Clear to auscultation. HEART: S1, S2. ABDOMEN: Soft and less tender. No guarding or rebound. EXTREMITIES: No clubbing, cyanosis or gross edema. SKIN: Warm to touch, no signs of rash. NEUROLOGIC: Awake, responds appropriately Right chest hemodialysis catheter (07/23) clean Left-chest central line (08/01)clean General: Alert, Oriented X3, No acute distress, Other (poorly oriented) Heart: Regular rate, Normal S1 Lungs: Clear Abdomen: Normal bowel sounds, Soft, No tenderness Extremities: No clubbing, No cyanosis, Normal pulses Skin: No rashes, No significant lesion Assessment and Plan Assessmemt and Plan Problems Medical Problems: (1) End stage renal disease Status: Acute (2) Generalized weakness Status: Acute Comment Review of Relevant I have reviewed the following items linda (where applicable) has been applied. Labs Laboratory Tests Test 08/05/18 06:55 Sodium Level 146 mmol/L (136-145) Potassium Level 5.6 mmol/L (3.5-5.1) Chloride Level 114 mmol/L (98-107) Carbon Dioxide Level 22 mmol/L (21-32) Anion Gap 10 (6-14) Blood Urea Nitrogen 40 mg/dL (7-20) Creatinine 2.6 mg/dL (0.6-1.0) Estimated GFR (Cockcroft-Gault) 18.1 Glucose Level 107 mg/dL (70-99) Calcium Level 8.3 mg/dL (8.5-10.1) Phosphorus Level 4.3 mg/dL (2.6-4.7) Magnesium Level 2.2 mg/dL (1.8-2.4) Microbiology 07/28/18 Blood Culture - Final, Complete NO GROWTH AFTER 5 DAYS 07/14/18 Urine Culture - Final, Complete 07/14/18 Urine Culture Result 1 (MARYANN) - Final, Complete Medications Current Medications Piperacillin Sod/ Tazobactam Sod 4.5 gm/Sodium Chloride 100 ml @ 200 mls/hr 1X ONCE IV Last administered on 07/14/18at 15:58; Start 07/14/18 at 15:00; Stop 07/14/18 at 15:29; Status DC Vancomycin HCl (Vanco Per Pharmacy) 1 each PRN DAILY PRN MC SEE COMMENTS Last administered on 08/03/18 11:14; Start 07/14/18 at 14:45 Vancomycin HCl 1.25 gm/Sodium Chloride 250 ml @ 166.667 mls/hr 1X ONCE IV Last administered on 07/14/18 18:10; Start 07/14/18 at 15:00; Stop 07/14/18 at 16:29; Status DC Ondansetron HCl (Zofran) 4 mg PRN Q8HRS PRN IV NAUSEA/VOMITING; Start 07/14/18 at 17:15; Stop 07/15/18 at 17:14; Status DC Morphine Sulfate (Morphine Sulfate) 2 mg PRN Q2HR PRN IV PAIN; Start 07/14/18 at 17:15; Stop 07/15/18 at 17:14; Status DC Acetaminophen (Tylenol) 650 mg PRN Q4HRS PRN PO FEVER; Start 07/14/18 at 17:15 ; Stop 07/15/18 at 17:14; Status DC Vancomycin HCl (Vancomycin Random Level) 1 each 1X ONCE MC ; Start 07/15/18 at 06:00; Stop 07/15/18 at 06:01; Status DC Vitamin B Complex/ Vitamin C (Dinorah-Ralph) 1 tab QPM PO Last administered on 08/05 17:12; Start 07/15/18 at 18:00 Megestrol Acetate (Megace) 40 mg BID PO Last administered on 08/05/18 09:06; Start 07/15/18 at 09:00 Mirtazapine (Remeron) 15 mg QHS PO Last administered on 08/03/18 21:10; Start 07/14/18 at 22:00 Non-Formulary Medication (Mirtazapine ) 1 tab QHS PO ; Start 07/15/18 at 21:00; Status UNV Ropinirole HCl (Requip) 3 mg BID PO Last administered on 07/16/18 18:21; Start 07/14/18 at 22:00; Stop 07/16/18 at 19:54; Status DC Sertraline HCl (Zoloft) 100 mg DAILY PO Last administered on 08/05/18 09:07; Start 07/15/18 at 09:00 Phytonadione (Mephyton Oral Soln) 5 mg 1X ONCE PO Last administered on 2/18/ 19at 22:14; Start 07/14/18 at 22:00; Stop 07/14/18 at 22:01; Status DC Vitamin B Complex (Folbic Tablet) 1 tab DAILY PO Last administered on at 17:52; Start 07/15/18 at 09:00 Albuterol/ Ipratropium (Duoneb) 3 ml RTBID NEB Last administered on 08/06/18 08:22; Start 07/15/18 at 08:00 Sodium Chloride 1,000 ml @ 1,000 mls/hr Q1H PRN IV hypotension; Start 07/15/18 at 10:48; Stop 07/15/18 at 16:47; Status DC Albumin Human 200 ml @ 200 mls/hr 1X PRN PRN IV Hypotension; Start 07/15/18 at 11:00; Stop 07/15/18 at 16:59; Status DC Sodium Chloride 1,000 ml @ 400 mls/hr Q2H30M PRN IV PATENCY; Start 07/15/18 at 10:48; Stop 07/15/18 at 22:47; Status DC Info (PHARMACY MONITORING -- do not chart) 1 each PRN DAILY PRN MC SEE COMMENTS ; Start 07/15/18 at 11:00; Status UNV Info (PHARMACY MONITORING -- do not chart) 1 each PRN DAILY PRN MC SEE COMMENTS ; Start 07/15/18 at 11:00; Stop 07/22/18 at 14:31; Status DC Vancomycin HCl 500 mg/Sodium Chloride 100 ml @ 100 mls/hr QTUTHSA IV Last administered on 07/17/18at 16:44; Start 07/17/18 at 16:00; Stop 07/18/18 at 15:41 ; Status DC Lactobacillus Rhamnosus (Culturelle) 1 cap BID PO Last administered on 09:07; Start 07/16/18 at 21:00 Clotrimazole (Mycelex) 10 mg 5XDAY MM Last administered on 07/28/18 05:48; Start 07/16/18 at 14:00; Stop 07/28/18 at 14:13; Status DC Ropinirole HCl (Requip) 3 mg DAILY PO Last administered on 08/05/18at 09:07; Start 07/17/18 at 09:00 Ropinirole HCl (Requip) 2 mg QHS PO Last administered on 08/03/18at 21:10; Start 07/16/18 at 21:00 Ropinirole HCl (Requip) 1 mg PRN QEVNG PRN PO RLS Last administered on at 17:46; Start 07/16/18 at 20:00 Vancomycin HCl (Vancomycin Oral Solution) 125 mg Q6HRS PO Last administered on 08/05/18at 17:12; Start 07/17/18 at 00:00 Sodium Chloride 1,000 ml @ 1,000 mls/hr Q1H PRN IV hypotension; Start 07/17/18 at 14:55; Stop 07/17/18 at 20:54; Status DC Sodium Chloride 1,000 ml @ 400 mls/hr Q2H30M PRN IV PATENCY; Start 07/17/18 at 14:55; Stop 07/18/18 at 02:54; Status DC Info (PHARMACY MONITORING -- do not chart) 1 each PRN DAILY PRN MC SEE COMMENTS ; Start 07/17/18 at 15:00; Stop 07/17/18 at 15:00; Status DC Info (PHARMACY MONITORING -- do not chart) 1 each PRN DAILY PRN MC SEE COMMENTS ; Start 07/17/18 at 15:00; Stop 07/17/18 at 15:00; Status DC Sodium Chloride 1,000 ml @ 1,000 mls/hr Q1H PRN IV hypotension; Start 07/18/18 at 11:30; Stop 07/18/18 at 17:29; Status DC Sodium Chloride 1,000 ml @ 400 mls/hr Q2H30M PRN IV PATENCY; Start 07/18/18 at 11:30; Stop 07/18/18 at 23:29; Status DC Info (PHARMACY MONITORING -- do not chart) 1 each PRN DAILY PRN MC SEE COMMENTS ; Start 07/18/18 at 12:30; Status UNV Info (PHARMACY MONITORING -- do not chart) 1 each PRN DAILY PRN MC SEE COMMENTS ; Start 07/18/18 at 12:30; Status UNV Vancomycin HCl 500 mg/Sodium Chloride 100 ml @ 100 mls/hr 1X ONCE IV Last administered on 07/18/18at 16:40; Start 07/18/18 at 16:00; Stop 07/18/18 at 16:59 ; Status DC Amino Acids/ Glycerin/ Electrolytes 1,000 ml @ 80 mls/hr [id number] IV Last administered on 08/02/18at 16:31; Start 07/19/18 at 11:45; Stop 08/02/18 at 21:59; Status DC Potassium Chloride (Klor-Con) 40 meq AFTRNOON PO Last administered on at 14:25; Start 07/19/18 at 13:00 Vancomycin HCl 500 mg/Sodium Chloride 100 ml @ 100 mls/hr 1X ONCE IV ; Start 07/21/18 at 16:00; Stop 07/21/18 at 16:59; Status Cancel Acetaminophen/ Hydrocodone Bitart (Lortab 5/325) 1 tab PRN Q6HRS PRN PO SEVERE PAIN; Start 07/19/18 at 20:00 Sodium Chloride 1,000 ml @ 1,000 mls/hr Q1H PRN IV hypotension; Start 07/21/18 at 12:29; Stop 07/21/18 at 18:28; Status DC Sodium Chloride (Normal Saline Flush) 10 ml 1X PRN PRN IV AP catheter pack; Start 07/21/18 at 12:30; Stop 07/22/18 at 12:29; Status DC Sodium Chloride (Normal Saline Flush) 10 ml 1X PRN PRN IV [employer] catheter pack; Start 07/21/18 at 12:30; Stop 07/22/18 at 12:29; Status DC Sodium Chloride 1,000 ml @ 400 mls/hr Q2H30M PRN IV PATENCY; Start 07/21/18 at 12:29; Stop 07/22/18 at 00:28; Status DC Info (PHARMACY MONITORING -- do not chart) 1 each PRN DAILY PRN MC SEE COMMENTS ; Start 07/21/18 at 12:30; Status UNV Info (PHARMACY MONITORING -- do not chart) 1 each PRN DAILY PRN MC SEE COMMENTS ; Start 07/21/18 at 12:30; Status Cancel Vancomycin HCl 750 mg/Sodium Chloride 250 ml @ 250 mls/hr 1X ONCE IV ; Start 07/21/18 at 16:00; Stop 07/21/18 at 16:59; Status Cancel Vancomycin HCl 500 mg/Sodium Chloride 100 ml @ 100 mls/hr 1X ONCE IV Last administered on 07/21/18at 21:35; Start 07/21/18 at 18:30; Stop 07/21/18 at 19:29 ; Status DC Lidocaine/ Epinephrine (LIDOCAINE 1%-EPI 1:100,000 Multi-Dose) 20 ml STK-MED ONCE .ROUTE ; Start 07/22/18 at 11:46; Stop 07/22/18 at 11:47; Status DC Cefazolin Sodium 50 ml @ As Directed STK-MED ONCE IV ; Start 07/22/18 at 12:45; Stop 07/22/18 at 12:46; Status DC Midazolam HCl (Versed) 2 mg STK-MED ONCE .ROUTE ; Start 07/22/18 at 12:45; Stop 07/22/18 at 12:46; Status DC Fentanyl Citrate (Fentanyl 2ml Vial) 100 mcg STK-MED ONCE .ROUTE ; Start at 12:45; Stop 07/22/18 at 12:46; Status DC Vancomycin HCl 500 mg/Sodium Chloride 100 ml @ 100 mls/hr QTUTHSA IV Last administered on 07/24/18 18:27; Start 07/22/18 at 16:00; Stop 07/26/18 at 14:45 ; Status DC Midazolam HCl (Versed) 2 mg 1X ONCE IV Last administered on 07/22/18 13:28; Start 07/22/18 at 13:30; Stop 07/22/18 at 13:31; Status DC Fentanyl Citrate (Fentanyl 2ml Vial) 100 mcg 1X ONCE IV Last administered on 13:27; Start 07/22/18 at 13:30; Stop 07/22/18 at 13:31; Status DC Lidocaine HCl (Lidocaine 1% 20ml Vial) 20 ml 1X ONCE INJ Last administered on 07/22/18at 13:27; Start 07/22/18 at 13:30; Stop 07/22/18 at 13:31; Status DC Ceftaroline Fosamil 400 mg/ Sodium Chloride 250 ml @ 250 mls/hr Q12HR IV Last administered on 08/04/18at 21:59; Start 07/22/18 at 14:00; Stop 08/05/18 at 10:27 ; Status DC Darbepoetin Avery (Aranesp) 60 mcg [id number] SQ Last administered on 08/05/18at 21 :51; Start 07/22/18 at 21:00 Sodium Chloride 1,000 ml @ 1,000 mls/hr Q1H PRN IV hypotension; Start 07/22/18 at 15:20; Stop 07/22/18 at 21:19; Status DC Albumin Human 200 ml @ 200 mls/hr 1X PRN PRN IV Hypotension; Start 07/22/18 at 15:30; Stop 07/22/18 at 21:29; Status DC Acetaminophen (Tylenol) 500 mg 1X PRN PRN PO MILD PAIN / TEMP; Start 07/22/18 at 15:30; Stop 07/23/18 at 15:29; Status DC Diphenhydramine HCl (Benadryl) 25 mg 1X PRN PRN IV ITCHING; Start 07/22/18 at 15:30; Stop 07/23/18 at 15:29; Status DC Diphenhydramine HCl (Benadryl) 25 mg 1X PRN PRN IV ITCHING; Start 07/22/18 at 15:30; Stop 07/23/18 at 15:29; Status DC Sodium Chloride (Normal Saline Flush) 10 ml 1X PRN PRN IV AP catheter pack; Start 07/22/18 at 15:30; Stop 07/23/18 at 15:29; Status DC Sodium Chloride (Normal Saline Flush) 10 ml 1X PRN PRN IV [employer] catheter pack; Start 07/22/18 at 15:30; Stop 07/23/18 at 15:29; Status DC Sodium Chloride 1,000 ml @ 400 mls/hr Q2H30M PRN IV PATENCY; Start 07/22/18 at 15:20; Stop 07/23/18 at 03:19; Status DC Info (PHARMACY MONITORING -- do not chart) 1 each PRN DAILY PRN MC SEE COMMENTS ; Start 07/22/18 at 15:30; Stop 07/22/18 at 15:30; Status DC Sodium Chloride 1,000 ml @ 1,000 mls/hr Q1H PRN IV hypotension; Start 07/23/18 at 07:00; Stop 07/23/18 at 12:59; Status DC Sodium Chloride 1,000 ml @ 400 mls/hr Q2H30M PRN IV PATENCY; Start 07/23/18 at 07:00; Stop 07/23/18 at 18:59; Status DC Info (PHARMACY MONITORING -- do not chart) 1 each PRN DAILY PRN MC SEE COMMENTS ; Start 07/23/18 at 09:00; Status UNV Info (PHARMACY MONITORING -- do not chart) 1 each PRN DAILY PRN MC SEE COMMENTS ; Start 07/23/18 at 09:00; Stop 08/03/18 at 08:27; Status DC Labetalol HCl (Normodyne Iv Push) 10 mg PRN Q2HR PRN IVP HYPERTENSION, SEE COMMENTS; Start 07/23/18 at 09:30 Acetaminophen (Tylenol) 500 mg PRN Q6HRS PRN PO MILD PAIN / TEMP; Start at 09:30 Ondansetron HCl (Zofran) 4 mg PRN Q6HRS PRN IV NAUSEA/VOMITING Last administered on 07/26/18at 16:17; Start 07/23/18 at 09:30 Ondansetron HCl (Zofran Odt) 4 mg PRN Q6HRS PRN PO NAUSEA/VOMITING Last administered on 07/26/18at 16:12; Start 07/23/18 at 09:30 Tramadol HCl (Ultram) 50 mg PRN Q6HRS PRN PO MODERATE PAIN Last administered on 08/04/18at 14:24; Start 07/23/18 at 09:30 Amlodipine Besylate (Norvasc) 10 mg DAILY PO Last administered on 08/04/18at 09: 14; Start 07/23/18 at 09:00 Ondansetron HCl (Zofran) 4 mg PRN Q6HRS PRN IV NAUSEA/VOMITING; Start 07/24/18 at 07:00; Stop 07/25/18 at 06:59; Status DC Fentanyl Citrate (Fentanyl 2ml Vial) 25 mcg PRN Q5MIN PRN IV MILD PAIN; Start 07/24/18 at 07:00; Stop 07/25/18 at 06:59; Status DC Fentanyl Citrate (Fentanyl 2ml Vial) 50 mcg PRN Q5MIN PRN IV MODERATE TO SEVERE PAIN; Start 07/24/18 at 07:00; Stop 07/25/18 at 06:59; Status DC Ringer's Solution 1,000 ml @ 30 mls/hr Q24H IV ; Start 07/24/18 at 07:00; Stop 07/24/18 at 18:59; Status DC Lidocaine HCl (Xylocaine-Mpf 1% 2ml Vial) 2 ml PRN 1X PRN ID PRIOR TO IV START ; Start 07/24/18 at 07:00; Stop 07/25/18 at 06:59; Status DC Prochlorperazine Edisylate (Compazine) 5 mg PACU PRN PRN IV NAUSEA, MRX1; Start 07/24/18 at 07:00; Stop 07/25/18 at 06:59; Status DC Vancomycin HCl 500 mg/Sodium Chloride 100 ml @ 100 mls/hr ONCE ONCE IV Last administered on 07/23/18at 17:23; Start 07/23/18 at 16:00; Stop 07/23/18 at 16:59 ; Status DC Nystatin (Mycostatin) 1 rolly BID TP Last administered on 08/06/18at 09:00; Start 07/23/18 at 21:00 Benzocaine (Hurricaine One) 1 spray STK-MED ONCE .ROUTE ; Start 07/24/18 at 11: 49; Stop 07/24/18 at 11:50; Status Cancel Lidocaine HCl (Viscous Lidocaine) 15 ml STK-MED ONCE .ROUTE ; Start 07/24/18 at 11:49; Stop 07/24/18 at 11:50; Status DC Lidocaine HCl (Xylocaine 2% Topical 5gm Tube) 1 rolly 1X ONCE TP ; Start at 12:00; Stop 07/24/18 at 12:01; Status DC Lidocaine HCl (Viscous Lidocaine) 15 ml 1X ONCE SWSW Last administered on 07/24at 13:12; Start 07/24/18 at 12:00; Stop 07/24/18 at 12:01; Status DC Benzocaine (Hurricaine One) 3 spray 1X ONCE MM Last administered on 07/24/18at 13:11; Start 07/24/18 at 12:00; Stop 07/24/18 at 12:01; Status DC Lidocaine HCl (Glydo (Lidocaine) Jelly) 1 rolly 1X ONCE MM Last administered on 07/24/18at 13:10; Start 07/24/18 at 12:00; Stop 07/24/18 at 12:01; Status DC Sodium Chloride 1,000 ml @ 1,000 mls/hr Q1H PRN IV hypotension; Start 07/24/18 at 13:36; Stop 07/24/18 at 19:35; Status DC Albumin Human 200 ml @ 200 mls/hr 1X PRN PRN IV Hypotension; Start 07/24/18 at 13:45; Stop 07/24/18 at 19:44; Status DC Acetaminophen (Tylenol) 500 mg 1X PRN PRN PO MILD PAIN / TEMP; Start 07/24/18 at 13:45; Stop 07/25/18 at 13:44; Status DC Diphenhydramine HCl (Benadryl) 25 mg 1X PRN PRN IV ITCHING; Start 07/24/18 at 13:45; Stop 07/25/18 at 13:44; Status DC Diphenhydramine HCl (Benadryl) 25 mg 1X PRN PRN IV ITCHING; Start 07/24/18 at 13:45; Stop 07/25/18 at 13:44; Status DC Sodium Chloride (Normal Saline Flush) 10 ml 1X PRN PRN IV AP catheter pack; Start 07/24/18 at 13:45; Stop 07/25/18 at 13:44; Status DC Sodium Chloride (Normal Saline Flush) 10 ml 1X PRN PRN IV [employer] catheter pack; Start 07/24/18 at 13:45; Stop 07/25/18 at 13:44; Status DC Sodium Chloride 1,000 ml @ 400 mls/hr Q2H30M PRN IV PATENCY; Start 07/24/18 at 13:36; Stop 07/25/18 at 01:35; Status DC Info (PHARMACY MONITORING -- do not chart) 1 each PRN DAILY PRN MC SEE COMMENTS ; Start 07/24/18 at 13:45; Stop 07/24/18 at 13:45; Status DC Propofol (Diprivan) 200 mg STK-MED ONCE IV ; Start 07/24/18 at 13:00; Stop at 08:16; Status DC Loperamide HCl (Imodium) 2 mg 1X ONCE PO Last administered on 07/25/18at 12:47; Start 07/25/18 at 11:15; Stop 07/25/18 at 11:16; Status DC Vancomycin HCl 500 mg/Sodium Chloride 100 ml @ 100 mls/hr QTUTHSA IV ; Start at 16:00; Stop 07/29/18 at 16:00; Status DC Vancomycin HCl (Vancomycin Random Level) 1 each 1X ONCE MC Last administered on 07/27/18at 06:00; Start 07/27/18 at 06:00; Stop 07/27/18 at 06:02; Status DC Simethicone (Gas-X) 80 mg PRN AFTMEALHC PRN PO GAS / BLOATING Last administered on 07/26/18at 16:12; Start 07/26/18 at 15:45 Lidocaine/ Epinephrine (LIDOCAINE 1%-EPI 1:100,000 Multi-Dose) 20 ml STK-MED ONCE .ROUTE ; Start 07/28/18 at 10:36; Stop 07/28/18 at 10:37; Status DC Heparin Sodium (Porcine) (Heparin Sodium) 10,000 unit STK-MED ONCE .ROUTE ; Start 07/28/18 at 10:38; Stop 07/28/18 at 10:39; Status DC Heparin Sodium/ Sodium Chloride 0 ml @ As Directed STK-MED ONCE .ROUTE ; Start 07/28/18 at 10:39; Stop 07/28/18 at 10:40; Status DC Sodium Chloride 1,000 ml @ 1,000 mls/hr Q1H PRN IV hypotension; Start 07/28/18 at 12:54; Stop 07/28/18 at 18:53; Status DC Sodium Chloride (Normal Saline Flush) 10 ml 1X PRN PRN IV AP catheter pack; Start 07/28/18 at 13:00; Stop 07/29/18 at 12:59; Status DC Sodium Chloride (Normal Saline Flush) 10 ml 1X PRN PRN IV [employer] catheter pack; Start 07/28/18 at 13:00; Stop 07/29/18 at 12:59; Status DC Info (PHARMACY MONITORING -- do not chart) 1 each PRN DAILY PRN MC SEE COMMENTS ; Start 07/28/18 at 13:00; Status UNV Info (PHARMACY MONITORING -- do not chart) 1 each PRN DAILY PRN MC SEE COMMENTS ; Start 07/28/18 at 13:00; Stop 07/29/18 at 07:20; Status DC Vancomycin HCl 500 mg/Sodium Chloride 100 ml @ 100 mls/hr QMWF IV Last administered on 07/30/18at 16:11; Start 07/28/18 at 16:00; Stop 07/31/18 at 14:28; Status DC Sodium Chloride 1,000 ml @ 1,000 mls/hr Q1H PRN IV hypotension; Start 07/29/18 at 07:02; Stop 07/29/18 at 13:01; Status DC Albumin Human 200 ml @ 200 mls/hr 1X PRN PRN IV Hypotension; Start 07/29/18 at 07:15; Stop 07/29/18 at 13:14; Status DC Acetaminophen (Tylenol) 500 mg 1X PRN PRN PO MILD PAIN / TEMP; Start 07/29/18 at 07:15; Stop 07/30/18 at 07:14; Status DC Diphenhydramine HCl (Benadryl) 25 mg 1X PRN PRN IV ITCHING; Start 07/29/18 at 07 :15; Stop 07/30/18 at 07:14; Status DC Diphenhydramine HCl (Benadryl) 25 mg 1X PRN PRN IV ITCHING; Start 07/29/18 at 07 :15; Stop 07/30/18 at 07:14; Status DC Sodium Chloride 1,000 ml @ 400 mls/hr Q2H30M PRN IV PATENCY; Start 07/29/18 at 07:02; Stop 07/29/18 at 19:01; Status DC Info (PHARMACY MONITORING -- do not chart) 1 each PRN DAILY PRN MC SEE COMMENTS ; Start 07/29/18 at 07:15; Stop 07/29/18 at 07:19; Status DC Sodium Chloride 1,000 ml @ 1,000 mls/hr Q1H PRN IV hypotension; Start 07/31/18 at 08:36; Stop 07/31/18 at 14:35; Status DC Sodium Chloride 1,000 ml @ 400 mls/hr Q2H30M PRN IV PATENCY; Start 07/31/18 at 08:36; Stop 07/31/18 at 20:35; Status DC Info (PHARMACY MONITORING -- do not chart) 1 each PRN DAILY PRN MC SEE COMMENTS ; Start 07/31/18 at 08:45; Status UNV Vancomycin HCl 500 mg/Sodium Chloride 100 ml @ 100 mls/hr QTUTHSA IV Last administered on 08/05/18at 17:13; Start 07/31/18 at 16:00 Vancomycin HCl (Vancomycin Random Level) 1 each 1X ONCE MC Last administered on 08/02/18at 05:00; Start 08/02/18 at 05:00; Stop 08/02/18 at 05:01; Status DC Lidocaine/ Epinephrine (LIDOCAINE 1%-EPI 1:100,000 Multi-Dose) 20 ml STK-MED ONCE .ROUTE ; Start 08/01/18 at 14:59; Stop 08/01/18 at 15:00; Status DC Heparin Sodium (Porcine) (Hep Lock Adult) 500 unit STK-MED ONCE IV ; Start at 14:59; Stop 08/01/18 at 15:00; Status DC Lidocaine/ Epinephrine (LIDOCAINE 1%-EPI 1:100,000 Multi-Dose) 20 ml 1X ONCE IJ Last administered on 08/01/18at 15:30; Start 08/01/18 at 15:30; Stop 08/01/18 at 15:31; Status DC Heparin Sodium (Porcine) (Hep Lock Adult) 500 unit 1X ONCE IV Last administered on 08/01/18at 15:30; Start 08/01/18 at 15:30; Stop 08/01/18 at 15:31; Status DC Info (Tpn Per Pharmacy) 1 each PRN DAILY PRN MC SEE COMMENTS Last administered on 08/05/18at 12:55; Start 08/01/18 at 16:30 Sodium Chloride 1,000 ml @ 1,000 mls/hr Q1H PRN IV hypotension; Start 08/02/18 at 08:14; Stop 08/02/18 at 14:13; Status DC Heparin Sodium (Porcine) (Heparin Sodium) 2,000 unit 1X PRN PRN INT CAT AP catheter pack; Start 08/02/18 at 08:15; Stop 08/03/18 at 08:14; Status DC Heparin Sodium (Porcine) (Heparin Sodium) 2,000 unit 1X PRN PRN INT CAT [employer] catheter pack; Start 08/02/18 at 08:15; Stop 08/03/18 at 08:14; Status DC Info (PHARMACY MONITORING -- do not chart) 1 each PRN DAILY PRN MC SEE COMMENTS ; Start 08/02/18 at 08:15; Status UNV Info (PHARMACY MONITORING -- do not chart) 1 each PRN DAILY PRN MC SEE COMMENTS ; Start 08/02/18 at 08:15 Sodium Chloride 90 meq/Sodium Phosphate 13.6 mmol/Potassium Chloride 50 meq/ Magnesium Sulfate 10 meq/ Multivitamins 10 ml/Chromium/ Copper/Manganese/ Seleni /Zn 1 ml/ Total Parenteral Nutrition/Amino Acids/Dextrose/ Fat Emulsion Intravenous 1,008 ml @ 42 mls/hr TPN CONT IV Last administered on 08/02/18at 22 :04; Start 08/02/18 at 22:00; Stop 08/03/18 at 21:59; Status DC Sodium Phosphate 15 mmol/Dextrose 255 ml @ 63.75 mls/ hr 1X ONCE IV Last administered on 08/03/18at 11:35; Start 08/03/18 at 11:30; Stop 08/03/18 at 15:29 ; Status DC Sodium Chloride 90 meq/Sodium Phosphate 20 mmol/ Potassium Chloride 50 meq/ Magnesium Sulfate 5 meq/ Multivitamins 10 ml/Chromium/ Copper/Manganese/ Seleni/ Zn 1 ml/ Total Parenteral Nutrition/Amino Acids/Dextrose/ Fat Emulsion Intravenous 1,008 ml @ 42 mls/hr TPN CONT IV Last administered on 08/03/18at 21:22; Start 08/03/18 at 22:00; Stop 08/04/18 at 21:59; Status DC Sodium Chloride 90 meq/Sodium Phosphate 10 mmol/ Potassium Chloride 50 meq/ Magnesium Sulfate 5 meq/ Multivitamins 10 ml/Chromium/ Copper/Manganese/ Seleni/ Zn 1 ml/ Total Parenteral Nutrition/Amino Acids/Dextrose/ Fat Emulsion Intravenous 1,008 ml @ 42 mls/hr TPN CONT IV Last administered on 08/04/18at 21:59; Start 08/04/18 at 22:00; Stop 08/05/18 at 21:59; Status DC Sodium Chloride 1,000 ml @ 1,000 mls/hr Q1H PRN IV hypotension; Start 08/05/18 at 09:09; Stop 08/05/18 at 15:08; Status DC Albumin Human 200 ml @ 200 mls/hr 1X PRN PRN IV Hypotension; Start 08/05/18 at 09:15; Stop 08/05/18 at 15:14; Status DC Acetaminophen (Tylenol) 500 mg 1X PRN PRN PO MILD PAIN / TEMP; Start 08/05/18 at 09:15; Stop 08/06/18 at 09:14; Status DC Diphenhydramine HCl (Benadryl) 25 mg 1X PRN PRN IV ITCHING; Start 08/05/18 at 09:15; Stop 08/06/18 at 09:14; Status DC Diphenhydramine HCl (Benadryl) 25 mg 1X PRN PRN IV ITCHING; Start 08/05/18 at 09:15; Stop 08/06/18 at 09:14; Status DC Sodium Chloride (Normal Saline Flush) 10 ml 1X PRN PRN IV AP catheter pack; Start 08/05/18 at 09:15; Stop 08/06/18 at 09:14; Status DC Sodium Chloride (Normal Saline Flush) 10 ml 1X PRN PRN IV [employer] catheter pack; Start 08/05/18 at 09:15; Stop 08/06/18 at 09:14; Status DC Sodium Chloride 1,000 ml @ 400 mls/hr Q2H30M PRN IV PATENCY; Start 08/05/18 at 09:09; Stop 08/05/18 at 21:08; Status DC Info (PHARMACY MONITORING -- do not chart) 1 each PRN DAILY PRN MC SEE COMMENTS ; Start 08/05/18 at 09:15; Stop 08/05/18 at 09:19; Status DC Lorazepam (Ativan) 0.5 mg PRN Q6HRS PRN IV ANXIETY / AGITATION Last administered on 08/05/18at 13:30; Start 08/05/18 at 12:30 Sodium Acetate 40 meq/Sodium Phosphate 5 mmol/ Potassium Acetate 10 meq/ Magnesium Sulfate 5 meq/ Multivitamins 10 ml/Chromium/ Copper/Manganese/ Seleni/ Zn 1 ml/ Total Parenteral Nutrition/Amino Acids/Dextrose/ Fat Emulsion Intravenous 1,008 ml @ 42 mls/hr TPN CONT IV Last administered on 08/05/18at 21:54; Start 08/05/18 at 22:00; Stop 08/06/18 at 21:59 Hydromorphone HCl (Dilaudid) 0.5 mg PRN Q4HRS PRN IVP PAIN Last administered on 08/05/18at 13:29; Start 08/05/18 at 13:00 Active Scripts Active Reported Dialyvite Tablet (Folic Acid/Vitamin B Comp W-C) 1 Each Tablet 1 Each PO QPM QPM @ 1900 [hectorol] QTUTHSA [epogen] QTUTHSA Mirtazapine 15 Mg Tablet 1 Tab PO QHS Zoloft (Sertraline Hcl) 100 Mg Tablet 1 Tab PO DAILY Requip (Ropinirole Hcl) 1 Mg Tablet 3 Mg PO BID Mirtazapine 15 Mg Tablet 1 Tab PO QHS Megestrol Acetate 40 Mg Tablet 40 Mg PO BID Vitals/I & O Vital Sign - Last 24 Hours 08/05/18 08/05/18 08/05/18 08/05/18 11:00 13:29 13:59 19:00 Temp 97.8 97.9 97.8 97.9 Pulse 110 104 Resp 20 20 B/P (MAP) 177/78 (111) 154/72 (99) Pulse Ox 90 90 90 90 O2 Delivery Nasal Cannula Room Air Room Air O2 Flow Rate 2.0 2.0 2.0 08/05/18 08/05/18 08/05/18 08/06/18 19:31 20:00 23:00 03:00 Temp 99.9 97.0 99.9 97.0 Pulse 87 Resp 20 B/P (MAP) 130/63 (85) 123/48 (73) Pulse Ox 95 95 O2 Delivery Nasal Cannula Nasal Cannula O2 Flow Rate 2.0 2.0 08/06/18 08/06/18 07:00 08:24 Temp 98.2 98.2 Pulse 87 Resp 18 B/P (MAP) 124/59 (80) Pulse Ox 97 94 O2 Delivery Room Air Nasal Cannula O2 Flow Rate 3.0 Intake and Output 08/05/18 08/05/18 08/06/18 14:59 22:59 06:59 Intake Total 0 ml 0 ml Balance 0 ml 0 ml Nutrition Consultation Dietary Evaluation: Recommendations by RD: PPN/TPN, Add supplement feedings Comments: day 2 TPN continue Diet per J[employer] 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
[2018-08-06 10:49] VITALS: BP 148/57
--- NOTE | 2018-08-06 11:01 | PDOC ---
Renal-Progress Notes Subjective Notes Notes NONE History of Present Illness Hx of present illness STABLE Vitals Vitals Vital Signs Date Time Temp Pulse Resp B/P (MAP) Pulse Ox O2 Delivery O2 Flow Rate FiO2 08/06/18 10:49 98.0 88 18 148/57 (87) 90 Nasal Cannula 3.0 98.0 Weight Weight [ ] I.O. Intake and Output Intake and Output 08/06/18 07:00 Intake Total 0 ml Balance 0 ml Intake Oral 0 ml IV Total 0 ml # Voids 2 # Bowel Movements 1 Micro Micro Microbiology 07/28/18 Blood Culture - Final, Complete NO GROWTH AFTER 5 DAYS 07/14/18 Urine Culture - Final, Complete 07/14/18 Urine Culture Result 1 (MARYANN) - Final, Complete Review of Systems Constitutional: yes: alert, oriented Ears/Nose/Throat: Yes: no symptom reported Eyes: Yes: no symptom reported Pulmonary: Yes no symptom reported Cardiovascular: Yes no symptom reported Gastrointestional: Yes: no symptom reported Genitourinary: Yes: no symptom reported Musculoskeletal: Yes: no symptom reported Skin: Yes no symptom reported Psychiatric/Neurological: Yes: no symptom reported Endocrine: Yes: no symptom reported Hematologic/Lymphatic: Yes: no symptom reported Physical Exam General Appearance: no apparent distress Skin: warm Respiratory: decreased breath sounds Abdomen: soft, bowel sounds present Genitourinary: bladder flat Extremities: pulses present Neurology: alert, oriented, follow commands Assessment Assessment IMP ESRD ANEMIA BACTEREMIA PLAN ANTIBIOTICS HD TOMORROW WILL FOLLOW DEIDRA MINAYA MD Aug 06, 2018 11:00
--- NOTE | 2018-08-06 11:11 | PDOC ---
Infectious Disease Note Subjective Subjective a little confused this am TPN + diarrhea Denies N/V/F/C/S/SOA Vital Sign Vital Signs Vital Signs Date Time Temp Pulse Resp B/P (MAP) Pulse Ox O2 Delivery O2 Flow Rate FiO2 08/06/18 10:49 98.0 88 18 148/57 (87) 90 Nasal Cannula 3.0 98.0 Physical Exam PHYSICAL EXAM GENERAL: Lying down, NAD - awakens but less responsive HEENT: Normal conjunctivae. + dentures NECK: Supple. LUNGS: Clear to auscultation. HEART: S1, S2. ABDOMEN: Soft and less tender. No guarding or rebound. EXTREMITIES: No clubbing, cyanosis or gross edema. SKIN: Warm to touch, no signs of rash. NEUROLOGIC: Awake, responds appropriately Right chest hemodialysis catheter (07/23) clean Left-chest central line (08/01)clean Labs Micro BLOOD CULTURE Final GRAM POSITIVE COCCI IN CLUSTERS, SUGGESTIVE OF STAPH, IN 4 OF 5 BOTTLES, 3 SETS DRAWN ON 07/20/18. ALL 3 SETS ARE POSITIVE. CALLED TO CATALINA MONTEMAYOR RN ON 5S AT 14:20 ON 07/21/18 DW MT SENT TO [facility] FOR FURTHER WORKUP. Objective Assessment MRSA bacteremia POA 07/14 (R tetra) - repeat BC 07/18 and 07/20 positive, BC neg from 07/24 and 07/28 - 2D echo neg vegetation; on 07/24 RAMON showed HD catheter w/ large mobile vegetation or thrombus (measuring at least 2.5 x 1.1 cm) extending into the RA. -s/p tunneled HDC line removal on 07/18. s/p replacement 07/23 C. difficile from 07/16 positive Bilat Pleural effusions Encephalopathy - ? 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
[2018-08-06] MEDS: POTASSIUM CHLORIDE 20 MEQ TABLET.ER. PO SCH (11:21)
[2018-08-06 14:30] LABS: CALCIUM 7.7 mg/dL (8.5-10.1); CREATININE 2.1 mg/dL (0.6-1.0); GFR 23.2; POTASSIUM 3.2 mmol/L (3.5-5.1)
--- NOTE | 2018-08-06 14:37 | PDOC2 ---
PALLIATIVE CARE Palliative Care Note Palliative Care Consult requested by Dr. Izquierdo to address goals of care Medical Condition per medical record; Staph bacteremia 2D echo neg vegetation; on 07/24 RAMON showed HD catheter w/ large mobile vegetation or thrombus (measuring at least 2.5 x 1.1 cm) extending into the RA. -s/p tunneled HDC line removal on 07/18. s/p replacement 07/23 C. difficile from 07/16 positive ESRD on dialysis Anemia of ESRD Leukocytosis/sepsis C. difficile diarrhea has recurred Pseudomembranous colitis very likely DNR Hyponatremia secondary to low effective circulatory volume resolved Hypokalemia replacing as per nephrology Vascular dementia HTN Anxiety Depression noncompliance with PT/OT Severe protein calorie malnutrition due to poor oral intake Severe deconditioning that will require placement Patient lethargic/confused. Spoke with Dio; Ivy AVINA ([phone]) reviewed current medical condition. Francisco suggested bringing patient home with hospice. Discussed Hospice with Francisco and Ivy. Both request evaluation by [facility]. Dialysis would be stopped; medications for comfort only. Will meet with Mady and include Ivy per phone this afternoon. Kori SANABRIA will fax information to [facility]. Met with Dio. Included Ivy AVINA on phone. reviewed medical condition and our conversation as above. Goal is Comfort Care at [facility]. DNR/DNI Dilaudid for MARTIN Griffith Aug 06, 2018 14:37
[2018-08-06] MEDS: TPN PER PHARMACY MC PRN ×2 (14:55→15:01)
[2018-08-06 15:00] VITALS: BP_SYST 137; BP_SYST 157; BP_DIAS 54
--- NOTE | 2018-08-06 15:01 | NUR ---
SW following. Discussed with RN, pt is declining further. Lani Arceo spoke with pt's family and DPOA to discuss hospice. Lani advised SW family would like referral sent to [facility]. DANIELE contacted [facility] ([phone], fax: [phone]). DANIELE faxed pt referral. SW will continue to follow. RN notified.
--- NOTE | 2018-08-06 15:02 | NUR ---
Pharmacy TPN Dosing Note S: TYLER GUTIERREZ is a 72 year old F Currently receiving Central Continuous TPN started 08/02/18 B:Pertinent PMH: Malnutrition, poor PO intake Height: 5 feet, 3 inches Weight: 49.831825 kg Current diet: regular LABS: Sodium: 144 Potassium: 3.2 Chloride: 106 Calcium: 8.3 Corrected Calcium: 10.38 Magnesium: 2.2 CO2: 29 SCr: 2.1 Glucose: 107 Albumin: 1.4 AST: 15 ALT: 8 TPN FORMULA: TPN TYPE: Central Continuous AMINO ACIDS: 60 gm DEXTROSE: 195 gm LIPIDS: 20 gm SODIUM CHLORIDE: 0 mEq SODIUM ACETATE: 40 mEq SODIUM PHOSPHATE: 5 mmol POTASSIUM CHLORIDE: 40 mEq POTASSIUM ACETATE: 0 mEq POTASSIUM PHOSPHATE: mmol MAGNESIUM: 5 mEq CALCIUM: mEq INSULIN: units MULTIPLE VITAMIN: 10 ml TRACE ELEMENTS: MTE 5 1mL ml(s) TPN PLAN: k level decreased, change kacetate to kcl R: Continue TPN at 43ml/hr Will monitor electrolytes, glucose, and tolerance to TPN. CASSY ESTEVES [facility], 08/06/18 [id number]
[2018-08-06] MEDS: HYDROmorphone 2 MG/ML VIAL IVP PRN (15:47)
[2018-08-06] MEDS: FOLIC/VIT B COMP W-C (RENAL) TABLET. PO SCH (16:20)
[2018-08-06 19:00] VITALS: BP 123/51
[2018-08-06] MEDS: MIRTAZAPINE 15 MG TABLET PO SCH (21:00)
[2018-08-06] MEDS ORDERED: TOTAL PARENTERAL NUTRITION IV SCH ×18 (22:00)
[2018-08-06] MEDS ORDERED: AMINO ACID IV SCH ×18 (22:00)
[2018-08-06] MEDS ORDERED: [UNRECOGNIZED DRUG - OTHER] IV SCH ×18 (22:00)
[2018-08-06] MEDS ORDERED: DEXTROSE 70% IV SCH ×18 (22:00)
[2018-08-06 23:00] VITALS: BP 120/50
[2018-08-07 03:00] VITALS: BP 110/64
[2018-08-07] MEDS: VANCOMYCIN 125 MG/2.5 ML ORAL SOLUTION. PO SCH ×3 (06:00→10:47)
[2018-08-07 07:00] VITALS: BP 153/63
[2018-08-07] MEDS: IPRATRPIUM/ALBUTEROL 0.5/2.5MG 3 ML NEBU. NEB SCH ×2 (08:00→21:01)
[2018-08-07] MEDS: SERTRALINE 50 MG TABLET. PO SCH (09:00)
[2018-08-07] MEDS: amLODIPine BESYLATE 10 MG TABLET PO SCH (09:00)
[2018-08-07] MEDS: MEGESTROL 20 MG TABLET. PO SCH (09:00)
[2018-08-07] MEDS: LACTOBACILLUS RHAMNOSUS GG 1 CAPSULE. PO SCH (09:00)
[2018-08-07] MEDS: VITAMIN B12,B9,B6 COMPLEX 1 TABLET. PO SCH (09:00)
[2018-08-07] MEDS: rOPINIRole 1 MG TABLET. PO SCH (09:00)
[2018-08-07] MEDS: NYSTATIN 100,000 UNIT/GM TOPICAL CREAM 15GM TUBE. TP SCH ×2 (09:00→20:38)
[2018-08-07 11:00] VITALS: BP 166/68
[2018-08-07] MEDS: POTASSIUM CHLORIDE 20 MEQ TABLET.ER. PO SCH (11:59)
--- NOTE | 2018-08-07 12:24 | PDOC ---
Renal-Progress Notes Subjective Notes Notes NONE History of Present Illness Hx of present illness PALLIATIVE NOTE APPRECIATED Vitals Vitals Vital Signs Date Time Temp Pulse Resp B/P (MAP) Pulse Ox O2 Delivery O2 Flow Rate FiO2 08/07/18 11:00 97.5 66 20 166/68 (100) 98 Nasal Cannula 3.0 97.5 Weight Weight [ ] I.O. Intake and Output Intake and Output 08/07/18 07:00 Intake Total 450 ml Balance 450 ml Intake Oral 450 ml # Voids 3 # Bowel Movements 3 Labs Labs Laboratory Tests Test 08/06/18 13:55 Sodium Level 144 mmol/L (136-145) Potassium Level 3.2 mmol/L (3.5-5.1) Chloride Level 106 mmol/L (98-107) Carbon Dioxide Level 29 mmol/L (21-32) Anion Gap 9 (6-14) Blood Urea Nitrogen 28 mg/dL (7-20) Creatinine 2.1 mg/dL (0.6-1.0) Estimated GFR (Cockcroft-Gault) 23.2 Glucose Level 93 mg/dL (70-99) Calcium Level 7.7 mg/dL (8.5-10.1) Phosphorus Level 2.0 mg/dL (2.6-4.7) Magnesium Level 2.0 mg/dL (1.8-2.4) Micro Micro Microbiology 07/28/18 Blood Culture - Final, Complete NO GROWTH AFTER 5 DAYS 07/14/18 Urine Culture - Final, Complete 07/14/18 Urine Culture Result 1 (MARYANN) - Final, Complete Review of Systems Constitutional: yes: no symptom reported Ears/Nose/Throat: Yes: no symptom reported Eyes: Yes: no symptom reported Pulmonary: Yes no symptom reported Cardiovascular: Yes no symptom reported Gastrointestional: Yes: no symptom reported Genitourinary: Yes: no symptom reported Musculoskeletal: Yes: no symptom reported Skin: Yes no symptom reported Psychiatric/Neurological: Yes: no symptom reported Endocrine: Yes: no symptom reported Hematologic/Lymphatic: Yes: no symptom reported Physical Exam General Appearance: no apparent distress Skin: warm Respiratory: decreased breath sounds Abdomen: soft, bowel sounds present Genitourinary: bladder flat Extremities: pulses present Neurology: alert, oriented, follow commands Assessment Assessment IMP ESRD ANEMIA BACTEREMIA PLAN HOSPICE PLANS NOTED WILL SIGN OFF DEIDRA MINAYA MD Aug 07, 2018 12:24
[2018-08-07] MEDS ORDERED: LORAZEPAM IV (13:20)
[2018-08-07] MEDS ORDERED: HYDR2VIA2 IVP (13:20)
--- NOTE | 2018-08-07 13:21 | SNU/HH DC ---
DISCHARGE ORDERS DISCHARGE INFORMATION: DISCHARGE DATE: Aug 07, 2018 FINAL DIAGNOSIS Problems Medical Problems: (1) End stage renal disease Status: Acute (2) Generalized weakness Status: Acute CONDITION ON DISCHARGE: Critical CODE STATUS: Code Status: DNR/DNI HOSPICE: HOSPICE: Yes HOSPICE EVAL & TREAT: Yes POST DISCHARGE ORDERS: ACTIVITY ORDERS: Activity as tolerated WEIGHT BEARING STATUS: As tolerated BATHING ORDERS: Shower-keep dressing dry, No Tub Bath until see Dr. PLUNKETT AFTER DISCHARGE: Renal WOUND/INCISION CARE: Keep wound/cast CDI, Change dressing CHECKS AFTER DISCHARGE: CHECKS AFTER DISCHARGE: Check blood press - daily, Check your Temp as needed COMMENTS: full assist with ADLs and prob poornima lift FOLLOW-UP: PHYSICIAN FOLLOW-UP: none, hospice TREATMENT/EQUIPMENT ORDERS: Physical Therapy For: Other: Occupational Therapy For: Other: (none needed) Speech Language Pathology For: Other: DISCHARGE MEDICATIONS: Home Meds Active Scripts Hydromorphone Hcl (HYDROMORPHONE HCL) 2 Mg/1 Ml Vial, 0.5 MG IVP PRN Q4HRS PRN for PAIN, #60 EACH Prov:GREGORIO CONN MD 08/07/18 [LORazepam INJ] 2 MG/1 ML VIAL No Conflict Check, 0.5 MG IV PRN Q6HRS PRN for ANXIETY / AGITATION, #30 EACH Prov:GREGORIO CONN MD 08/07/18 Reported Medications Mirtazapine (MIRTAZAPINE) 15 Mg Tablet, 1 TAB PO QHS for restless legs, #30 TAB 3 Refills 07/14/18 Sertraline Hcl (ZOLOFT) 100 Mg Tablet, 1 TAB PO DAILY, #30 TAB 5 Refills 07/14/18 Ropinirole Hcl (REQUIP) 1 Mg Tablet, 3 MG PO BID for restless leg syndrome, TAB 06/12/18 Mirtazapine (MIRTAZAPINE) 15 Mg Tablet, 1 TAB PO QHS, #30 TAB 3 Refills 02/08/18 Discontinued Reported Medications Folic Acid/Vitamin B Comp W-C (DIALYVITE TABLET) 1 Each Tablet, 1 EACH PO QPM for kidney vitamin, TAB QPM @ 1900 07/14/18 [hectorol] No Conflict Check, QTUTHSA 07/14/18 [epogen] No Conflict Check, QTUTHSA 07/14/18 Megestrol Acetate (MEGESTROL ACETATE) 40 Mg Tablet, 40 MG PO BID, TAB 02/08/18 GREGORIO CONN MD Aug 07, 2018 13:21
--- NOTE | 2018-08-07 13:23 | PDOC ---
PROGRESS NOTES Chief Complaint Chief Complaint Staph bacteremia 2D echo neg vegetation; on 07/24 RAMON showed HD catheter w/ large mobile vegetation or thrombus (measuring at least 2.5 x 1.1 cm) extending into the RA. -s/p tunneled HDC line removal on 07/18. s/p replacement 07/23 C. difficile from 07/16 positive ESRD on dialysis Anemia of ESRD Leukocytosis/sepsis C. difficile diarrhea has recurred Pseudomembranous colitis very likely DNR Hyponatremia secondary to low effective circulatory volume resolved Hypokalemia replacing as per nephrology Vascular dementia HTN Anxiety Depression noncompliance with PT/OT Severe protein calorie malnutrition due to poor oral intake Severe deconditioning that will require placement NEW PERMCATH placed on 07/28 Patient on TPN, poor nutritional status, hopefully will be able to discuss with DPOA goals of therapy, her poor prognosis and hoepfully transitioning to palliative care in light of her grim prognosis. History of Present Illness History of Present Illness try to DC to inpatient hospice today almost no PO intake, still confused, agitated hospice and palliative, Palliative care has arranged hospice . 07/15: Seen on dialysis today. She has some chills with this. Notably, lab called about 3/4 bottles positive on blood culture for GPC in clusters. 07/16: Feeling terrible today. Has diarrhea x2 POSITIVE FOR C. DIFFICILE. She has bilateral LQ pain. Started on oral vancomycin and continued on IV Vancomycin 07/17: Still with poor PO intake 07/18: HD catheter pulled. Culture looks like MRSA 07/19: Still not eating, started PPN. Still with repeat blood cultures 1/4 bottles positive 07/21 DECISION FOR PALLIATIVE CARE Needed GRAM POSITIVE COCCI IN CLUSTERS, SUGGESTIVE OF STAPH, IN 4 OF 5 BOTTLES, 3 SETS DRAWN ON 07/20/18. ALL 3 SETS ARE POSITIVE. Still with some loose stools. Positive 2/4 repeat blood cultures after line was pulled. Denies SOB and CP. She does have some catheter site pain where it was pulled. 07/25 NONCOMPLIANT WITH PT/OT, BLOOD CUL PENDING, REPEAT, high risk of complications due to noncompliance per my personal review of chart 07/26 PERMCATH NONFUNCTIONAL. NEW PERMCATH SATURDAY refusing to eat lunch today, bp uncontrolled 3/ still not eating well, noncompliant 3/4 NOT IMPROVED FAR COMPLIANCE, POOR APPETITE 3/4 Problem List (body system elements) * Impaired fnctnl mobility * Strength * Balance * Knowledge-safe techniques NEEDS SNF 07/29 Patient with no acute events reported overnight, patient with improving appetite, will see how much she is able to eat today and hopefully wean off procalamine. No fever chills diaphoresis reported. 07/30 patient with no acute events reported overnight. Continues to try to eat a little bit more, but still very debilitated. Reassurances been provided her diarrhea is slowly improving 07/31 patient very lethargic after dialysis seems to be her usual norm as per nursing staff, she is not eating much of her meals will readdress her nutritional status once she is more receptive for a conversation. 08/01 discussed nutritional status once again and will have a response later in the day once she has weighed in the pros and cons I have explained in detail regarding TPN, dobhoff tube and PEG tube options 08/02 patient will be started on TPN later in the day , seen during dailysis, no complaints, very debilitated unfortunately 08/03 no new complaints, patient hemodynamically stable, discussed with nursing staff, we will start making arrangements for transfer to SNF 08/04 patient in acute distress secondary to abdominal discomfort. Patient does not percent peritoneal signs but is definitely very tender in her abdomen. No fever or chills reported overnight laboratory data has been reviewed. Concern for recurrence of C. difficile given that she is again having diarrhea 08/05 patient very agitated, seen at dialysis she has declinced tremendously over the last 48 hours. I have tried to contact the power of securities attorney unsuccessfully to address goals of therapy Discussed these with nephew but he is unable to make decisions for the patient. Discussed with Pat, she is most likely at the end of the road. Appreciate Dr Rahman's recommendations regarding pleural effusion noted on CT from yesterday. Vitals Vitals Vital Signs Date Time Temp Pulse Resp B/P (MAP) Pulse Ox O2 Delivery O2 Flow Rate FiO2 08/07/18 11:00 97.5 66 20 166/68 (100) 98 Nasal Cannula 3.0 97.5 Physical Exam Physical Exam GENERAL: Lying down, NAD - awakens but less responsive HEENT: Normal conjunctivae. + dentures NECK: Supple. LUNGS: Clear to auscultation. HEART: S1, S2. ABDOMEN: Soft and less tender. No guarding or rebound. EXTREMITIES: No clubbing, cyanosis or gross edema. SKIN: Warm to touch, no signs of rash. NEUROLOGIC: Awake, responds appropriately Right chest hemodialysis catheter (07/23) clean Left-chest central line (08/01)clean General: Alert, Oriented X3, No acute distress, Other (poorly oriented) Heart: Regular rate, Normal S1 Lungs: Clear Abdomen: Normal bowel sounds, Soft, No tenderness Extremities: No clubbing, No cyanosis, Normal pulses Skin: No rashes, No significant lesion Labs LABS Laboratory Tests Test 08/06/18 13:55 Sodium Level 144 mmol/L (136-145) Potassium Level 3.2 mmol/L (3.5-5.1) Chloride Level 106 mmol/L (98-107) Carbon Dioxide Level 29 mmol/L (21-32) Anion Gap 9 (6-14) Blood Urea Nitrogen 28 mg/dL (7-20) Creatinine 2.1 mg/dL (0.6-1.0) Estimated GFR (Cockcroft-Gault) 23.2 Glucose Level 93 mg/dL (70-99) Calcium Level 7.7 mg/dL (8.5-10.1) Phosphorus Level 2.0 mg/dL (2.6-4.7) Magnesium Level 2.0 mg/dL (1.8-2.4) Assessment and Plan Assessmemt and Plan Problems Medical Problems: (1) End stage renal disease Status: Acute (2) Generalized weakness Status: Acute Comment Review of Relevant I have reviewed the following items linda (where applicable) has been applied. Labs Laboratory Tests Test 08/06/18 13:55 Sodium Level 144 mmol/L (136-145) Potassium Level 3.2 mmol/L (3.5-5.1) Chloride Level 106 mmol/L (98-107) Carbon Dioxide Level 29 mmol/L (21-32) Anion Gap 9 (6-14) Blood Urea Nitrogen 28 mg/dL (7-20) Creatinine 2.1 mg/dL (0.6-1.0) Estimated GFR (Cockcroft-Gault) 23.2 Glucose Level 93 mg/dL (70-99) Calcium Level 7.7 mg/dL (8.5-10.1) Phosphorus Level 2.0 mg/dL (2.6-4.7) Magnesium Level 2.0 mg/dL (1.8-2.4) Laboratory Tests Test 08/06/18 13:55 Sodium Level 144 mmol/L (136-145) Potassium Level 3.2 mmol/L (3.5-5.1) Chloride Level 106 mmol/L (98-107) Carbon Dioxide Level 29 mmol/L (21-32) Anion Gap 9 (6-14) Blood Urea Nitrogen 28 mg/dL (7-20) Creatinine 2.1 mg/dL (0.6-1.0) Estimated GFR (Cockcroft-Gault) 23.2 Glucose Level 93 mg/dL (70-99) Calcium Level 7.7 mg/dL (8.5-10.1) Phosphorus Level 2.0 mg/dL (2.6-4.7) Magnesium Level 2.0 mg/dL (1.8-2.4) Microbiology 07/28/18 Blood Culture - Final, Complete NO GROWTH AFTER 5 DAYS 07/14/18 Urine Culture - Final, Complete 07/14/18 Urine Culture Result 1 (MARYANN) - Final, Complete Medications Current Medications Piperacillin Sod/ Tazobactam Sod 4.5 gm/Sodium Chloride 100 ml @ 200 mls/hr 1X ONCE IV Last administered on 07/14/18at 15:58; Start 07/14/18 at 15:00; Stop 07/14/18 at 15:29; Status DC Vancomycin HCl (Vanco Per Pharmacy) 1 each PRN DAILY PRN MC SEE COMMENTS Last administered on 08/03/18at 11:14; Start 07/14/18 at 14:45 Vancomycin HCl 1.25 gm/Sodium Chloride 250 ml @ 166.667 mls/hr 1X ONCE IV Last administered on 07/14/18at 18:10; Start 07/14/18 at 15:00; Stop 07/14/18 at 16:29; Status DC Ondansetron HCl (Zofran) 4 mg PRN Q8HRS PRN IV NAUSEA/VOMITING; Start 07/14/18 at 17:15; Stop 07/15/18 at 17:14; Status DC Morphine Sulfate (Morphine Sulfate) 2 mg PRN Q2HR PRN IV PAIN; Start 07/14/18 at 17:15; Stop 07/15/18 at 17:14; Status DC Acetaminophen (Tylenol) 650 mg PRN Q4HRS PRN PO FEVER; Start 07/14/18 at 17:15 ; Stop 07/15/18 at 17:14; Status DC Vancomycin HCl (Vancomycin Random Level) 1 each 1X ONCE MC ; Start 07/15/18 at 06:00; Stop 07/15/18 at 06:01; Status DC Vitamin B Complex/ Vitamin C (Dinorah-Ralph) 1 tab QPM PO Last administered on 08/05 17:12; Start 07/15/18 at 18:00 Megestrol Acetate (Megace) 40 mg BID PO Last administered on 08/05/18 09:06; Start 07/15/18 at 09:00 Mirtazapine (Remeron) 15 mg QHS PO Last administered on 08/03/18 21:10; Start 07/14/18 at 22:00 Non-Formulary Medication (Mirtazapine ) 1 tab QHS PO ; Start 07/15/18 at 21:00; Status UNV Ropinirole HCl (Requip) 3 mg BID PO Last administered on 07/16/18at 18:21; Start 07/14/18 at 22:00; Stop 07/16/18 at 19:54; Status DC Sertraline HCl (Zoloft) 100 mg DAILY PO Last administered on 08/05/18 09:07; Start 07/15/18 at 09:00 Phytonadione (Mephyton Oral Soln) 5 mg 1X ONCE PO Last administered on 22:14; Start 07/14/18 at 22:00; Stop 07/14/18 at 22:01; Status DC Vitamin B Complex (Folbic Tablet) 1 tab DAILY PO Last administered on at 17:52; Start 07/15/18 at 09:00 Albuterol/ Ipratropium (Duoneb) 3 ml RTBID NEB Last administered on 08/07/18 08:00; Start 07/15/18 at 08:00 Sodium Chloride 1,000 ml @ 1,000 mls/hr Q1H PRN IV hypotension; Start 07/15/18 at 10:48; Stop 07/15/18 at 16:47; Status DC Albumin Human 200 ml @ 200 mls/hr 1X PRN PRN IV Hypotension; Start 07/15/18 at 11:00; Stop 07/15/18 at 16:59; Status DC Sodium Chloride 1,000 ml @ 400 mls/hr Q2H30M PRN IV PATENCY; Start 07/15/18 at 10:48; Stop 07/15/18 at 22:47; Status DC Info (PHARMACY MONITORING -- do not chart) 1 each PRN DAILY PRN MC SEE COMMENTS ; Start 07/15/18 at 11:00; Status UNV Info (PHARMACY MONITORING -- do not chart) 1 each PRN DAILY PRN MC SEE COMMENTS ; Start 07/15/18 at 11:00; Stop 07/22/18 at 14:31; Status DC Vancomycin HCl 500 mg/Sodium Chloride 100 ml @ 100 mls/hr QTUTHSA IV Last administered on 07/17/18at 16:44; Start 07/17/18 at 16:00; Stop 07/18/18 at 15:41 ; Status DC Lactobacillus Rhamnosus (Culturelle) 1 cap BID PO Last administered on 09:07; Start 07/16/18 at 21:00 Clotrimazole (Mycelex) 10 mg 5XDAY MM Last administered on 07/28/18 05:48; Start 07/16/18 at 14:00; Stop 07/28/18 at 14:13; Status DC Ropinirole HCl (Requip) 3 mg DAILY PO Last administered on 08/05/18at 09:07; Start 07/17/18 at 09:00 Ropinirole HCl (Requip) 2 mg QHS PO Last administered on 08/03/18 21:10; Start 07/16/18 at 21:00 Ropinirole HCl (Requip) 1 mg PRN QEVNG PRN PO RLS Last administered on 17:46; Start 07/16/18 at 20:00 Vancomycin HCl (Vancomycin Oral Solution) 125 mg Q6HRS PO Last administered on 08/05/18 17:12; Start 07/17/18 at 00:00 Sodium Chloride 1,000 ml @ 1,000 mls/hr Q1H PRN IV hypotension; Start 07/17/18 at 14:55; Stop 07/17/18 at 20:54; Status DC Sodium Chloride 1,000 ml @ 400 mls/hr Q2H30M PRN IV PATENCY; Start 07/17/18 at 14:55; Stop 07/18/18 at 02:54; Status DC Info (PHARMACY MONITORING -- do not chart) 1 each PRN DAILY PRN MC SEE COMMENTS ; Start 07/17/18 at 15:00; Stop 07/17/18 at 15:00; Status DC Info (PHARMACY MONITORING -- do not chart) 1 each PRN DAILY PRN MC SEE COMMENTS ; Start 07/17/18 at 15:00; Stop 07/17/18 at 15:00; Status DC Sodium Chloride 1,000 ml @ 1,000 mls/hr Q1H PRN IV hypotension; Start 07/18/18 at 11:30; Stop 07/18/18 at 17:29; Status DC Sodium Chloride 1,000 ml @ 400 mls/hr Q2H30M PRN IV PATENCY; Start 07/18/18 at 11:30; Stop 07/18/18 at 23:29; Status DC Info (PHARMACY MONITORING -- do not chart) 1 each PRN DAILY PRN MC SEE COMMENTS ; Start 07/18/18 at 12:30; Status UNV Info (PHARMACY MONITORING -- do not chart) 1 each PRN DAILY PRN MC SEE COMMENTS ; Start 07/18/18 at 12:30; Status UNV Vancomycin HCl 500 mg/Sodium Chloride 100 ml @ 100 mls/hr 1X ONCE IV Last administered on 07/18/18at 16:40; Start 07/18/18 at 16:00; Stop 07/18/18 at 16:59 ; Status DC Amino Acids/ Glycerin/ Electrolytes 1,000 ml @ 80 mls/hr [id number] IV Last administered on 08/02/18at 16:31; Start 07/19/18 at 11:45; Stop 08/02/18 at 21:59; Status DC Potassium Chloride (Klor-Con) 40 meq AFTRNOON PO Last administered on at 14:25; Start 07/19/18 at 13:00 Vancomycin HCl 500 mg/Sodium Chloride 100 ml @ 100 mls/hr 1X ONCE IV ; Start 07/21/18 at 16:00; Stop 07/21/18 at 16:59; Status Cancel Acetaminophen/ Hydrocodone Bitart (Lortab 5/325) 1 tab PRN Q6HRS PRN PO SEVERE PAIN; Start 07/19/18 at 20:00 Sodium Chloride 1,000 ml @ 1,000 mls/hr Q1H PRN IV hypotension; Start 07/21/18 at 12:29; Stop 07/21/18 at 18:28; Status DC Sodium Chloride (Normal Saline Flush) 10 ml 1X PRN PRN IV AP catheter pack; Start 07/21/18 at 12:30; Stop 07/22/18 at 12:29; Status DC Sodium Chloride (Normal Saline Flush) 10 ml 1X PRN PRN IV DIRECTOR OF MUSIC THERAPY catheter pack; Start 07/21/18 at 12:30; Stop 07/22/18 at 12:29; Status DC Sodium Chloride 1,000 ml @ 400 mls/hr Q2H30M PRN IV PATENCY; Start 07/21/18 at 12:29; Stop 07/22/18 at 00:28; Status DC Info (PHARMACY MONITORING -- do not chart) 1 each PRN DAILY PRN MC SEE COMMENTS ; Start 07/21/18 at 12:30; Status UNV Info (PHARMACY MONITORING -- do not chart) 1 each PRN DAILY PRN MC SEE COMMENTS ; Start 07/21/18 at 12:30; Status Cancel Vancomycin HCl 750 mg/Sodium Chloride 250 ml @ 250 mls/hr 1X ONCE IV ; Start 07/21/18 at 16:00; Stop 07/21/18 at 16:59; Status Cancel Vancomycin HCl 500 mg/Sodium Chloride 100 ml @ 100 mls/hr 1X ONCE IV Last administered on 07/21/18at 21:35; Start 07/21/18 at 18:30; Stop 07/21/18 at 19:29 ; Status DC Lidocaine/ Epinephrine (LIDOCAINE 1%-EPI 1:100,000 Multi-Dose) 20 ml STK-MED ONCE .ROUTE ; Start 07/22/18 at 11:46; Stop 07/22/18 at 11:47; Status DC Cefazolin Sodium 50 ml @ As Directed STK-MED ONCE IV ; Start 07/22/18 at 12:45; Stop 07/22/18 at 12:46; Status DC Midazolam HCl (Versed) 2 mg STK-MED ONCE .ROUTE ; Start 07/22/18 at 12:45; Stop 07/22/18 at 12:46; Status DC Fentanyl Citrate (Fentanyl 2ml Vial) 100 mcg STK-MED ONCE .ROUTE ; Start at 12:45; Stop 07/22/18 at 12:46; Status DC Vancomycin HCl 500 mg/Sodium Chloride 100 ml @ 100 mls/hr QTUTHSA IV Last administered on 07/24/18at 18:27; Start 07/22/18 at 16:00; Stop 07/26/18 at 14:45 ; Status DC Midazolam HCl (Versed) 2 mg 1X ONCE IV Last administered on 07/22/18at 13:28; Start 07/22/18 at 13:30; Stop 07/22/18 at 13:31; Status DC Fentanyl Citrate (Fentanyl 2ml Vial) 100 mcg 1X ONCE IV Last administered on at 13:27; Start 07/22/18 at 13:30; Stop 07/22/18 at 13:31; Status DC Lidocaine HCl (Lidocaine 1% 20ml Vial) 20 ml 1X ONCE INJ Last administered on 07/22/18at 13:27; Start 07/22/18 at 13:30; Stop 07/22/18 at 13:31; Status DC Ceftaroline Fosamil 400 mg/ Sodium Chloride 250 ml @ 250 mls/hr Q12HR IV Last administered on 08/04/18at 21:59; Start 07/22/18 at 14:00; Stop 08/05/18 at 10:27 ; Status DC Darbepoetin Avery (Aranesp) 60 mcg [id number] SQ Last administered on 08/05/18at 21 :51; Start 07/22/18 at 21:00 Sodium Chloride 1,000 ml @ 1,000 mls/hr Q1H PRN IV hypotension; Start 07/22/18 at 15:20; Stop 07/22/18 at 21:19; Status DC Albumin Human 200 ml @ 200 mls/hr 1X PRN PRN IV Hypotension; Start 07/22/18 at 15:30; Stop 07/22/18 at 21:29; Status DC Acetaminophen (Tylenol) 500 mg 1X PRN PRN PO MILD PAIN / TEMP; Start 07/22/18 at 15:30; Stop 07/23/18 at 15:29; Status DC Diphenhydramine HCl (Benadryl) 25 mg 1X PRN PRN IV ITCHING; Start 07/22/18 at 15:30; Stop 07/23/18 at 15:29; Status DC Diphenhydramine HCl (Benadryl) 25 mg 1X PRN PRN IV ITCHING; Start 07/22/18 at 15:30; Stop 07/23/18 at 15:29; Status DC Sodium Chloride (Normal Saline Flush) 10 ml 1X PRN PRN IV AP catheter pack; Start 07/22/18 at 15:30; Stop 07/23/18 at 15:29; Status DC Sodium Chloride (Normal Saline Flush) 10 ml 1X PRN PRN IV DIRECTOR [employer] MUSIC THERAP[employer] catheter pack; Start 07/22/18 at 15:30; Stop 07/23/18 at 15:29; Status DC Sodium Chloride 1,000 ml @ 400 mls/hr Q2H30M PRN IV PATENCY; Start 07/22/18 at 15:20; Stop 07/23/18 at 03:19; Status DC Info (PHARMACY MONITORING -- do not chart) 1 each PRN DAILY PRN MC SEE COMMENTS ; Start 07/22/18 at 15:30; Stop 07/22/18 at 15:30; Status DC Sodium Chloride 1,000 ml @ 1,000 mls/hr Q1H PRN IV hypotension; Start 07/23/18 at 07:00; Stop 07/23/18 at 12:59; Status DC Sodium Chloride 1,000 ml @ 400 mls/hr Q2H30M PRN IV PATENCY; Start 07/23/18 at 07:00; Stop 07/23/18 at 18:59; Status DC Info (PHARMACY MONITORING -- do not chart) 1 each PRN DAILY PRN MC SEE COMMENTS ; Start 07/23/18 at 09:00; Status UNV Info (PHARMACY MONITORING -- do not chart) 1 each PRN DAILY PRN MC SEE COMMENTS ; Start 07/23/18 at 09:00; Stop 08/03/18 at 08:27; Status DC Labetalol HCl (Normodyne Iv Push) 10 mg PRN Q2HR PRN IVP HYPERTENSION, SEE COMMENTS; Start 07/23/18 at 09:30 Acetaminophen (Tylenol) 500 mg PRN Q6HRS PRN PO MILD PAIN / TEMP; Start at 09:30 Ondansetron HCl (Zofran) 4 mg PRN Q6HRS PRN IV NAUSEA/VOMITING Last administered on 07/26/18 16:17; Start 07/23/18 at 09:30 Ondansetron HCl (Zofran Odt) 4 mg PRN Q6HRS PRN PO NAUSEA/VOMITING Last administered on 07/26/18at 16:12; Start 07/23/18 at 09:30 Tramadol HCl (Ultram) 50 mg PRN Q6HRS PRN PO MODERATE PAIN Last administered on 08/04/18at 14:24; Start 07/23/18 at 09:30 Amlodipine Besylate (Norvasc) 10 mg DAILY PO Last administered on 08/04/18at 09: 14; Start 07/23/18 at 09:00 Ondansetron HCl (Zofran) 4 mg PRN Q6HRS PRN IV NAUSEA/VOMITING; Start 07/24/18 at 07:00; Stop 07/25/18 at 06:59; Status DC Fentanyl Citrate (Fentanyl 2ml Vial) 25 mcg PRN Q5MIN PRN IV MILD PAIN; Start 07/24/18 at 07:00; Stop 07/25/18 at 06:59; Status DC Fentanyl Citrate (Fentanyl 2ml Vial) 50 mcg PRN Q5MIN PRN IV MODERATE TO SEVERE PAIN; Start 07/24/18 at 07:00; Stop 07/25/18 at 06:59; Status DC Ringer's Solution 1,000 ml @ 30 mls/hr Q24H IV ; Start 07/24/18 at 07:00; Stop 07/24/18 at 18:59; Status DC Lidocaine HCl (Xylocaine-Mpf 1% 2ml Vial) 2 ml PRN 1X PRN ID PRIOR TO IV START ; Start 07/24/18 at 07:00; Stop 07/25/18 at 06:59; Status DC Prochlorperazine Edisylate (Compazine) 5 mg PACU PRN PRN IV NAUSEA, MRX1; Start 07/24/18 at 07:00; Stop 07/25/18 at 06:59; Status DC Vancomycin HCl 500 mg/Sodium Chloride 100 ml @ 100 mls/hr ONCE ONCE IV Last administered on 07/23/18at 17:23; Start 07/23/18 at 16:00; Stop 07/23/18 at 16:59 ; Status DC Nystatin (Mycostatin) 1 rolly BID TP Last administered on 08/07/18at 09:00; Start 07/23/18 at 21:00 Benzocaine (Hurricaine One) 1 spray STK-MED ONCE .ROUTE ; Start 07/24/18 at 11: 49; Stop 07/24/18 at 11:50; Status Cancel Lidocaine HCl (Viscous Lidocaine) 15 ml STK-MED ONCE .ROUTE ; Start 07/24/18 at 11:49; Stop 07/24/18 at 11:50; Status DC Lidocaine HCl (Xylocaine 2% Topical 5gm Tube) 1 rolly 1X ONCE TP ; Start at 12:00; Stop 07/24/18 at 12:01; Status DC Lidocaine HCl (Viscous Lidocaine) 15 ml 1X ONCE SWSW Last administered on 07/24at 13:12; Start 07/24/18 at 12:00; Stop 07/24/18 at 12:01; Status DC Benzocaine (Hurricaine One) 3 spray 1X ONCE MM Last administered on 07/24/18at 13:11; Start 07/24/18 at 12:00; Stop 07/24/18 at 12:01; Status DC Lidocaine HCl (Glydo (Lidocaine) Jelly) 1 rolly 1X ONCE MM Last administered on 07/24/18at 13:10; Start 07/24/18 at 12:00; Stop 07/24/18 at 12:01; Status DC Sodium Chloride 1,000 ml @ 1,000 mls/hr Q1H PRN IV hypotension; Start 07/24/18 at 13:36; Stop 07/24/18 at 19:35; Status DC Albumin Human 200 ml @ 200 mls/hr 1X PRN PRN IV Hypotension; Start 07/24/18 at 13:45; Stop 07/24/18 at 19:44; Status DC Acetaminophen (Tylenol) 500 mg 1X PRN PRN PO MILD PAIN / TEMP; Start 07/24/18 at 13:45; Stop 07/25/18 at 13:44; Status DC Diphenhydramine HCl (Benadryl) 25 mg 1X PRN PRN IV ITCHING; Start 07/24/18 at 13:45; Stop 07/25/18 at 13:44; Status DC Diphenhydramine HCl (Benadryl) 25 mg 1X PRN PRN IV ITCHING; Start 07/24/18 at 13:45; Stop 07/25/18 at 13:44; Status DC Sodium Chloride (Normal Saline Flush) 10 ml 1X PRN PRN IV AP catheter pack; Start 07/24/18 at 13:45; Stop 07/25/18 at 13:44; Status DC Sodium Chloride (Normal Saline Flush) 10 ml 1X PRN PRN IV [employer] MUS[employer]ER[employer] catheter pack; Start 07/24/18 at 13:45; Stop 07/25/18 at 13:44; Status DC Sodium Chloride 1,000 ml @ 400 mls/hr Q2H30M PRN IV PATENCY; Start 07/24/18 at 13:36; Stop 07/25/18 at 01:35; Status DC Info (PHARMACY MONITORING -- do not chart) 1 each PRN DAILY PRN MC SEE COMMENTS ; Start 07/24/18 at 13:45; Stop 07/24/18 at 13:45; Status DC Propofol (Diprivan) 200 mg STK-MED ONCE IV ; Start 07/24/18 at 13:00; Stop at 08:16; Status DC Loperamide HCl (Imodium) 2 mg 1X ONCE PO Last administered on 07/25/18at 12:47; Start 07/25/18 at 11:15; Stop 07/25/18 at 11:16; Status DC Vancomycin HCl 500 mg/Sodium Chloride 100 ml @ 100 mls/hr QTUTHSA IV ; Start at 16:00; Stop 07/29/18 at 16:00; Status DC Vancomycin HCl (Vancomycin Random Level) 1 each 1X ONCE MC Last administered on 07/27/18at 06:00; Start 07/27/18 at 06:00; Stop 07/27/18 at 06:02; Status DC Simethicone (Gas-X) 80 mg PRN AFTMEALHC PRN PO GAS / BLOATING Last administered on 07/26/18at 16:12; Start 07/26/18 at 15:45 Lidocaine/ Epinephrine (LIDOCAINE 1%-EPI 1:100,000 Multi-Dose) 20 ml STK-MED ONCE .ROUTE ; Start 07/28/18 at 10:36; Stop 07/28/18 at 10:37; Status DC Heparin Sodium (Porcine) (Heparin Sodium) 10,000 unit STK-MED ONCE .ROUTE ; Start 07/28/18 at 10:38; Stop 07/28/18 at 10:39; Status DC Heparin Sodium/ Sodium Chloride 0 ml @ As Directed STK-MED ONCE .ROUTE ; Start 07/28/18 at 10:39; Stop 07/28/18 at 10:40; Status DC Sodium Chloride 1,000 ml @ 1,000 mls/hr Q1H PRN IV hypotension; Start 07/28/18 at 12:54; Stop 07/28/18 at 18:53; Status DC Sodium Chloride (Normal Saline Flush) 10 ml 1X PRN PRN IV AP catheter pack; Start 07/28/18 at 13:00; Stop 07/29/18 at 12:59; Status DC Sodium Chloride (Normal Saline Flush) 10 ml 1X PRN PRN IV [employer]ER[employer] catheter pack; Start 07/28/18 at 13:00; Stop 07/29/18 at 12:59; Status DC Info (PHARMACY MONITORING -- do not chart) 1 each PRN DAILY PRN MC SEE COMMENTS ; Start 07/28/18 at 13:00; Status UNV Info (PHARMACY MONITORING -- do not chart) 1 each PRN DAILY PRN MC SEE COMMENTS ; Start 07/28/18 at 13:00; Stop 07/29/18 at 07:20; Status DC Vancomycin HCl 500 mg/Sodium Chloride 100 ml @ 100 mls/hr QMWF IV Last administered on 07/30/18at 16:11; Start 07/28/18 at 16:00; Stop 07/31/18 at 14:28; Status DC Sodium Chloride 1,000 ml @ 1,000 mls/hr Q1H PRN IV hypotension; Start 07/29/18 at 07:02; Stop 07/29/18 at 13:01; Status DC Albumin Human 200 ml @ 200 mls/hr 1X PRN PRN IV Hypotension; Start 07/29/18 at 07:15; Stop 07/29/18 at 13:14; Status DC Acetaminophen (Tylenol) 500 mg 1X PRN PRN PO MILD PAIN / TEMP; Start 07/29/18 at 07:15; Stop 07/30/18 at 07:14; Status DC Diphenhydramine HCl (Benadryl) 25 mg 1X PRN PRN IV ITCHING; Start 07/29/18 at 07 :15; Stop 07/30/18 at 07:14; Status DC Diphenhydramine HCl (Benadryl) 25 mg 1X PRN PRN IV ITCHING; Start 07/29/18 at 07 :15; Stop 07/30/18 at 07:14; Status DC Sodium Chloride 1,000 ml @ 400 mls/hr Q2H30M PRN IV PATENCY; Start 07/29/18 at 07:02; Stop 07/29/18 at 19:01; Status DC Info (PHARMACY MONITORING -- do not chart) 1 each PRN DAILY PRN MC SEE COMMENTS ; Start 07/29/18 at 07:15; Stop 07/29/18 at 07:19; Status DC Sodium Chloride 1,000 ml @ 1,000 mls/hr Q1H PRN IV hypotension; Start 07/31/18 at 08:36; Stop 07/31/18 at 14:35; Status DC Sodium Chloride 1,000 ml @ 400 mls/hr Q2H30M PRN IV PATENCY; Start 07/31/18 at 08:36; Stop 07/31/18 at 20:35; Status DC Info (PHARMACY MONITORING -- do not chart) 1 each PRN DAILY PRN MC SEE COMMENTS ; Start 07/31/18 at 08:45; Status UNV Vancomycin HCl 500 mg/Sodium Chloride 100 ml @ 100 mls/hr QTUTHSA IV Last administered on 08/05/18at 17:13; Start 07/31/18 at 16:00 Vancomycin HCl (Vancomycin Random Level) 1 each 1X ONCE MC Last administered on 08/02/18at 05:00; Start 08/02/18 at 05:00; Stop 08/02/18 at 05:01; Status DC Lidocaine/ Epinephrine (LIDOCAINE 1%-EPI 1:100,000 Multi-Dose) 20 ml STK-MED ONCE .ROUTE ; Start 08/01/18 at 14:59; Stop 08/01/18 at 15:00; Status DC Heparin Sodium (Porcine) (Hep Lock Adult) 500 unit STK-MED ONCE IV ; Start at 14:59; Stop 08/01/18 at 15:00; Status DC Lidocaine/ Epinephrine (LIDOCAINE 1%-EPI 1:100,000 Multi-Dose) 20 ml 1X ONCE IJ Last administered on 08/01/18at 15:30; Start 08/01/18 at 15:30; Stop 08/01/18 at 15:31; Status DC Heparin Sodium (Porcine) (Hep Lock Adult) 500 unit 1X ONCE IV Last administered on 08/01/18at 15:30; Start 08/01/18 at 15:30; Stop 08/01/18 at 15:31; Status DC Info (Tpn Per Pharmacy) 1 each PRN DAILY PRN MC SEE COMMENTS Last administered on 08/06/18at 15:01; Start 08/01/18 at 16:30; Stop 08/07/18 at 09:36; Status DC Sodium Chloride 1,000 ml @ 1,000 mls/hr Q1H PRN IV hypotension; Start 08/02/18 at 08:14; Stop 08/02/18 at 14:13; Status DC Heparin Sodium (Porcine) (Heparin Sodium) 2,000 unit 1X PRN PRN INT CAT AP catheter pack; Start 08/02/18 at 08:15; Stop 08/03/18 at 08:14; Status DC Heparin Sodium (Porcine) (Heparin Sodium) 2,000 unit 1X PRN PRN INT CAT [employer] catheter pack; Start 08/02/18 at 08:15; Stop 08/03/18 at 08:14; Status DC Info (PHARMACY MONITORING -- do not chart) 1 each PRN DAILY PRN MC SEE COMMENTS ; Start 08/02/18 at 08:15; Status UNV Info (PHARMACY MONITORING -- do not chart) 1 each PRN DAILY PRN MC SEE COMMENTS ; Start 08/02/18 at 08:15 Sodium Chloride 90 meq/Sodium Phosphate 13.6 mmol/Potassium Chloride 50 meq/ Magnesium Sulfate 10 meq/ Multivitamins 10 ml/Chromium/ Copper/Manganese/ Seleni /Zn 1 ml/ Total Parenteral Nutrition/Amino Acids/Dextrose/ Fat Emulsion Intravenous 1,008 ml @ 42 mls/hr TPN CONT IV Last administered on 08/02/18at 22 :04; Start 08/02/18 at 22:00; Stop 08/03/18 at 21:59; Status DC Sodium Phosphate 15 mmol/Dextrose 255 ml @ 63.75 mls/ hr 1X ONCE IV Last administered on 08/03/18at 11:35; Start 08/03/18 at 11:30; Stop 08/03/18 at 15:29 ; Status DC Sodium Chloride 90 meq/Sodium Phosphate 20 mmol/ Potassium Chloride 50 meq/ Magnesium Sulfate 5 meq/ Multivitamins 10 ml/Chromium/ Copper/Manganese/ Seleni/ Zn 1 ml/ Total Parenteral Nutrition/Amino Acids/Dextrose/ Fat Emulsion Intravenous 1,008 ml @ 42 mls/hr TPN CONT IV Last administered on 08/03/18at 21:22; Start 08/03/18 at 22:00; Stop 08/04/18 at 21:59; Status DC Sodium Chloride 90 meq/Sodium Phosphate 10 mmol/ Potassium Chloride 50 meq/ Magnesium Sulfate 5 meq/ Multivitamins 10 ml/Chromium/ Copper/Manganese/ Seleni/ Zn 1 ml/ Total Parenteral Nutrition/Amino Acids/Dextrose/ Fat Emulsion Intravenous 1,008 ml @ 42 mls/hr TPN CONT IV Last administered on 08/04/18at 21:59; Start 08/04/18 at 22:00; Stop 08/05/18 at 21:59; Status DC Sodium Chloride 1,000 ml @ 1,000 mls/hr Q1H PRN IV hypotension; Start 08/05/18 at 09:09; Stop 08/05/18 at 15:08; Status DC Albumin Human 200 ml @ 200 mls/hr 1X PRN PRN IV Hypotension; Start 08/05/18 at 09:15; Stop 08/05/18 at 15:14; Status DC Acetaminophen (Tylenol) 500 mg 1X PRN PRN PO MILD PAIN / TEMP; Start 08/05/18 at 09:15; Stop 08/06/18 at 09:14; Status DC Diphenhydramine HCl (Benadryl) 25 mg 1X PRN PRN IV ITCHING; Start 08/05/18 at 09:15; Stop 08/06/18 at 09:14; Status DC Diphenhydramine HCl (Benadryl) 25 mg 1X PRN PRN IV ITCHING; Start 08/05/18 at 09:15; Stop 08/06/18 at 09:14; Status DC Sodium Chloride (Normal Saline Flush) 10 ml 1X PRN PRN IV AP catheter pack; Start 08/05/18 at 09:15; Stop 08/06/18 at 09:14; Status DC Sodium Chloride (Normal Saline Flush) 10 ml 1X PRN PRN IV [employer] catheter pack; Start 08/05/18 at 09:15; Stop 08/06/18 at 09:14; Status DC Sodium Chloride 1,000 ml @ 400 mls/hr Q2H30M PRN IV PATENCY; Start 08/05/18 at 09:09; Stop 08/05/18 at 21:08; Status DC Info (PHARMACY MONITORING -- do not chart) 1 each PRN DAILY PRN MC SEE COMMENTS ; Start 08/05/18 at 09:15; Stop 08/05/18 at 09:19; Status DC Lorazepam (Ativan) 0.5 mg PRN Q6HRS PRN IV ANXIETY / AGITATION Last administered on 08/05/18at 13:30; Start 08/05/18 at 12:30 Sodium Acetate 40 meq/Sodium Phosphate 5 mmol/ Potassium Acetate 10 meq/ Magnesium Sulfate 5 meq/ Multivitamins 10 ml/Chromium/ Copper/Manganese/ Seleni/ Zn 1 ml/ Total Parenteral Nutrition/Amino Acids/Dextrose/ Fat Emulsion Intravenous 1,008 ml @ 42 mls/hr TPN CONT IV Last administered on 08/05/18at 21:54; Start 08/05/18 at 22:00; Stop 08/06/18 at 21:59; Status DC Hydromorphone HCl (Dilaudid) 0.5 mg PRN Q4HRS PRN IVP PAIN Last administered on 08/06/18at 15:47; Start 08/05/18 at 13:00 Sodium Acetate 40 meq/Sodium Phosphate 5 mmol/ Potassium Acetate 40 meq/ Magnesium Sulfate 5 meq/ Multivitamins 10 ml/Chromium/ Copper/Manganese/ Seleni/ Zn 1 ml/ Total Parenteral Nutrition/Amino Acids/Dextrose/ Fat Emulsion Intravenous 1,008 ml @ 42 mls/hr TPN CONT IV ; Start 08/06/18 at 22:00; Stop 08/06/18 at 22:00; Status DC Sodium Acetate 40 meq/Sodium Phosphate 5 mmol/ Potassium Chloride 40 meq/ Magnesium Sulfate 5 meq/ Multivitamins 10 ml/Chromium/ Copper/Manganese/ Seleni/ Zn 1 ml/ Total Parenteral Nutrition/Amino Acids/Dextrose/ Fat Emulsion Intravenous 1,008 ml @ 42 mls/hr TPN CONT IV Last administered on 08/06/18at 21:51; Start 08/06/18 at 22:00; Stop 08/07/18 at 09:26; Status DC Active Scripts Active Hydromorphone Hcl 2 Mg/1 Ml Vial 0.5 Mg IVP PRN Q4HRS PRN [Lorazepam] 2 MG/1 ML Vial 0.5 Mg IV PRN Q6HRS PRN Reported Mirtazapine 15 Mg Tablet 1 Tab PO QHS Zoloft (Sertraline Hcl) 100 Mg Tablet 1 Tab PO DAILY Requip (Ropinirole Hcl) 1 Mg Tablet 3 Mg PO BID Mirtazapine 15 Mg Tablet 1 Tab PO QHS Vitals/I & O Vital Sign - Last 24 Hours 08/06/18 08/06/18 08/06/18 08/06/18 15:00 15:47 16:20 19:00 Temp 98.0 97.5 98.0 97.5 Pulse 80 74 Resp 18 18 B/P (MAP) 137/54 (81) 123/51 (75) Pulse Ox 90 94 O2 Delivery Nasal Cannula Nasal Cannula Nasal Cannula Nasal Cannula O2 Flow Rate 3.0 2.0 2.0 3.0 08/06/18 08/06/18 08/07/18 08/07/18 20:00 23:00 03:00 07:00 Temp 97.8 97.5 97.9 97.8 97.5 97.9 Pulse 67 110 67 Resp 18 18 20 B/P (MAP) 120/50 (73) 110/64 (79) 153/63 (93) Pulse Ox 93 100 O2 Delivery Nasal Cannula Nasal Cannula Nasal Cannula Nasal Cannula O2 Flow Rate 3.0 3.0 3.0 3.0 08/07/18 08/07/18 08/07/18 08:00 08:01 11:00 Temp 97.5 97.5 Pulse 66 Resp 20 B/P (MAP) 166/68 (100) Pulse Ox 95 98 O2 Delivery Nasal Cannula Nasal Cannula Nasal Cannula O2 Flow Rate 2.0 3.0 3.0 Intake and Output 08/06/18 08/06/18 08/07/18 15:00 23:00 07:00 Intake Total 150 ml 300 ml Balance 150 ml 300 ml Nutrition Consultation Dietary Evaluation: Recommendations by RD: PPN/TPN, Add supplement feedings Comments: Pt is declining. No HD today. plans for hospice, comfort care. REC d/c TPN, let current TPN bag run through. Discussed w/ RN, pt may d/c today. RD available x [phone] prn. Expected Outcomes/Goals: po intake to improve to 50% of meals- goal ongoing Interpretation of weight loss: >1-2% in 1 week Malnutrition Findings: Food and Nutrition Intake (Sev: <50% est energy req 5days Body Fat Depletion (Non Severe: Mod to Severe Weight Status: Underweight GREGORIO CONN MD Aug 07, 2018 13:23
--- NOTE | 2018-08-07 13:30 | NUR ---
DANIELE following for discharge planning. Discussed with RN. DANIELE received a call from [facility] requesting DPOA contact phone number to get paperwork completed for pt's admission into the [facility]. DANIELE provided phone number. Possibility for pt to discharge to the [facility] later this evening due to other admits today. DANIELE will continue to follow. RN notified.
--- NOTE | 2018-08-07 14:15 | NUR ---
SW following. [facility] trying to get in touch with KAITLINARVIN Haynes. Plan for pt to discharge tomorrow around 10am (08/08/18). SW to set up transportation for ambulance transport. RN notified.
[2018-08-07 15:00] VITALS: BP 150/67
[2018-08-07] MEDS: VANCOMYCIN PER PHARMACY MC PRN (15:14)
--- NOTE | 2018-08-07 16:08 | NUR ---
SW following. DANIELE set up transportation with [facility] fire department for 10am 08/08/18 to [facility], [address] [place], [address]. DANIELE contacted pt's nephew, Francisco ([phone]) to advise. RN notified. DANIELE will continue to follow.
[2018-08-07 19:00] VITALS: BP 119/51
[2018-08-07] MEDS ORDERED: ALTEPLASE 1MG SYRINGE. INT CAT ONE (20:00)
[2018-08-07 23:00] VITALS: BP 167/68
[2018-08-08 03:00] VITALS: BP 165/70
[2018-08-08 07:00] VITALS: BP 177/80
[2018-08-08] MEDS: IPRATRPIUM/ALBUTEROL 0.5/2.5MG 3 ML NEBU. NEB SCH (07:45)
--- NOTE | 2018-08-08 08:32 | NUR ---
SW following. Discussed with RN. Plan for pt to discharge to [facility] at 10am by [facility]. SW confirmed with [facility]. Pt's nephew, Francisco aware of plan. No further SW needs.
--- NOTE | 2018-08-08 10:40 | PDOC3 ---
Discharge Summary Visit Information Date of Admission: Aug 11, 2008 Date of Discharge: Aug 08, 2018 Admitting Diagnosis: acute encephalopathy on admit, SIRS, sepsis, bactermemi Final Diagnosis Staph bacteremia 2D echo neg vegetation; on 07/24 RAMON showed HD catheter w/ large mobile vegetation or thrombus (measuring at least 2.5 x 1.1 cm) extending into the RA. -s/p tunneled HDC line removal on 07/18. s/p replacement 07/23 C. difficile from 07/16 positive ESRD on dialysis Anemia of ESRD Leukocytosis/sepsis C. difficile diarrhea has recurred Pseudomembranous colitis very likely DNR Hyponatremia secondary to low effective circulatory volume resolved Hypokalemia replacing as per nephrology Vascular dementia HTN Anxiety Depression noncompliance with PT/OT Severe protein calorie malnutrition due to poor oral intake Severe deconditioning that will require placement Problems Medical Problems: (1) End stage renal disease Status: Acute (2) Generalized weakness Status: Acute Brief Hospital Course Allergies Allergies Coded Allergies Type Severity Reaction Last Updated Verified codeine Allergy Intermediate Hives 07/19/18 Yes I S O L A T I O N *CONTACT* Allergy Unknown 07/21/18 Yes Vital Signs Vital Signs Date Time Temp Pulse Resp B/P (MAP) Pulse Ox O2 Delivery O2 Flow Rate FiO2 08/08/18 07:46 Room Air 08/08/18 07:00 97.5 67 14 177/80 (112) 92 3.0 97.5 Lab Results Laboratory Tests Test 08/06/18 13:55 Sodium Level 144 mmol/L (136-145) Potassium Level 3.2 mmol/L (3.5-5.1) Chloride Level 106 mmol/L (98-107) Carbon Dioxide Level 29 mmol/L (21-32) Anion Gap 9 (6-14) Blood Urea Nitrogen 28 mg/dL (7-20) Creatinine 2.1 mg/dL (0.6-1.0) Estimated GFR (Cockcroft-Gault) 23.2 Glucose Level 93 mg/dL (70-99) Calcium Level 7.7 mg/dL (8.5-10.1) Phosphorus Level 2.0 mg/dL (2.6-4.7) Magnesium Level 2.0 mg/dL (1.8-2.4) Brief Hospital Course MS. Hernandez is a 72-year-old female with a history of chronic kidney disease, who is on dialysis every Saturday, and Saturday. She presented to [facility] Room on 07/14/2018 secondary to fatigue, complaints of some fever and weakness. hemoglobin of 5.6. + SIRS, blood cx taken , She was given a dose of Zosyn and started on blood cx, positive for gram-positive cocci in clusters, Staph; RAMON 07/24, The left ventricular systolic function is normal and the ejection fraction is within normal range. EF 50-55% Doppler and Color-flow revealed mild mitral regurgitation. A venous catheter is seen in the SVC. This HD catheter appears to have a large mobile vegetation or thrombus (measuring at least 2.5 x 1.1 cm) extending into the RA. pt weak, ongoing fever, sepsis and malnutrition, poor prognosis discussed for some time DPOA agreed to hospice 08/06, to hospice house 08/08 Discharge Information Condition at Discharge: Comment (terminal) Disposition/Orders: D/C to Another Facility (hospice facility) Scheduled Mirtazapine (Mirtazapine) 15 Mg Tablet, 1 TAB PO QHS, #30 Ref 3 (Reported) Entered as Reported by: DAJIA MARK on 02/08/18 1735 Last Action: Converted on 07/14/182127 by GREGORIO CONN Mirtazapine (Mirtazapine) 15 Mg Tablet, 1 TAB PO QHS for restless legs, #30 Ref 3 (Reported) Entered as Reported by: ADRIAN ROTH on 07/14/182041 Last Taken: Unknown Dose on 07/13/18 2100 Last Action: Converted on 2127 by GREGORIO CONN Ropinirole Hcl (Requip) 1 Mg Tablet, 3 MG PO BID for restless leg syndrome, ( Reported) Entered as Reported by: ZE DOMINIQUE on 06/12/18 1118 Last Action: Converted on 07/14/182127 by GREGORIO CONN Sertraline Hcl (Zoloft) 100 Mg Tablet, 1 TAB PO DAILY, #30 Ref 5 (Reported) Entered as Reported by: TORIN FANG on 07/14/18 1608 Last Action: Converted on 07/14/182127 by GREGORIO CONN Scheduled PRN Hydromorphone Hcl (Hydromorphone Hcl) 2 Mg/1 Ml Vial, 0.5 MG IVP PRN Q4HRS PRN for PAIN, #60 Prescribed by: GREGORIO CONN on 08/07/18 1320 [Lorazepam] 2 MG/1 ML VIAL, 0.5 MG IV PRN Q6HRS PRN for ANXIETY / AGITATION, #30 Prescribed by: GREGORIO CONN on 08/07/18 1320 Discontinued Medications Folic Acid/Vitamin B Comp W-C (Dialyvite Tablet) 1 Each Tablet, 1 EACH PO QPM for kidney vitamin, (Reported) QPM @ 1900 Entered as Reported by: ADRIAN ROTH on 07/14/182041 Last Action: Converted on 07/14/182127 by GREGORIO CONN Megestrol Acetate (Megestrol Acetate) 40 Mg Tablet, 40 MG PO BID, (Reported) Entered as Reported by: DAIJA MARK on 02/08/18 1735 Last Action: Converted on 07/14/182127 by GREGORIO OCNN [epogen] YANCI, (Reported) Entered as Reported by: ADRIAN ROTH on 07/14/182041 Last Action: Reviewed on 07/14/182041 by ADRIAN ROTH [hectorol] YANCI, (Reported) Entered as Reported by: ADRIAN ROTH on 07/14/182041 Last Action: Reviewed on 07/14/182041 by ADRIAN ROTH Patient Instructions Patient Instructions > 30min, coordination of care, hospice GREGORIO CONN MD Aug 08, 2018 10:39
--- NOTE | 2018-08-08 12:40 | NUR ---
Discharge Note: TYLER GUTIERREZ Discharge instructions and discharge home medications reviewed with Other facility and a copy given. All questions have been answered and understanding verbalized. The following instructions and handouts were given: medication, PICC information, compilation of patient stay provided. Patient discharged to hospice house with self via EMS.
--- NOTE | 2018-08-08 12:50 | NUR ---
PICC line to remain in place for tx to hospice house.
--- NOTE | 2018-08-11 13:54 | RAD ---
Procedure: Tunneled central venous catheter placement 08/11/2018 1:49 PM Clinical Indication: Long-term central venous access, TPN therapy. Sterility: All elements of maximal sterile barrier technique including the use of a cap, mask, sterile gown, sterile gloves, large sterile sheet, appropriate hand hygiene, and 2% chlorhexidine for cutaneous antisepsis (or acceptable alternative antiseptic per current guidelines) were followed for this procedure. Consent: The procedure was explained in its entirety to the patient or the patients designated contact center representative by a member of the treatment team, including a discussion of the risks, benefits and commonly accepted alternatives to the procedure, as well as the expected consequences of no therapy whatsoever. Discussion of the risks included, but was not limited to, those that are most frequent and those that are rare but possibly severe or life-threatening, as well as the possibility of unforeseen complications. Technique and Findings: Following informed consent, a timeout procedure was performed. The patient was prepped and draped in the usual sterile fashion. Ultrasound interrogation of the left neck revealed patency and compressibility of the left internal jugular vein. A 21-gauge micropuncture was then used to gain access to this vein under ultrasound guidance. A hard copy ultrasound image was recorded. The needle was exchanged over a wire for a peel-away sheath, with tip in the right atrium. The skin over the left anterior chest wall was copiously anesthetized with 1% Lidocaine and a small dermatotomy was made. A 25 cm powerline catheter was then tunneled subcutaneously towards the neck dermatotomy and deployed through the peel-away sheath under fluoroscopic guidance such that the distal tip resided in the mid right atrium. Manual flow rates were assessed and found to be within normal limits. The catheter was then flushed, packed with Heparin, capped, and sutured to the skin. The neck dermatotomy was closed with Dermabond. No immediate complications were identified. Fluoroscopy time: Due to a technical malfunction, fluoroscopy time was not recorded Exposures: 1 Impression: Left internal jugular tunneled central venous catheter placement as described
== END 2018-08-08 10:05 | disposition hospice, inpatient (51) | DRG 871 ==
LOC: ER 14:29 → 5 SOUTH 17:07
PROVIDERS: ADMIT Internal Medicine; ATTEND Internal Medicine
PROC: 30233N1 Transfusion of Nonautologous Red Blood Cells into Peripheral Vein, Percutaneous Approach (ICD-10-PCS; principal; 2018-07-15)
PROC: 5A1D70Z Performance of Urinary Filtration, Intermittent, Less than 6 Hours Per Day (ICD-10-PCS; 2018-07-15)
PROC: 5A1D70Z Performance of Urinary Filtration, Intermittent, Less than 6 Hours Per Day (ICD-10-PCS; 2018-07-17)
PROC: 05PYX3Z Removal of Infusion Device from Upper Vein, External Approach (ICD-10-PCS; 2018-07-18)
PROC: 5A1D70Z Performance of Urinary Filtration, Intermittent, Less than 6 Hours Per Day (ICD-10-PCS; 2018-07-18)
PROC: 5A1D70Z Performance of Urinary Filtration, Intermittent, Less than 6 Hours Per Day (ICD-10-PCS; 2018-07-21)
PROC: 5A1D70Z Performance of Urinary Filtration, Intermittent, Less than 6 Hours Per Day (ICD-10-PCS; 2018-07-22)
PROC: 0JH63XZ Insertion of Tunneled Vascular Access Device into Chest Subcutaneous Tissue and Fascia, Percutaneous Approach (ICD-10-PCS; 2018-07-23)
PROC: 02H633Z Insertion of Infusion Device into Right Atrium, Percutaneous Approach (ICD-10-PCS; 2018-07-23)
PROC: B2141ZZ Fluoroscopy of Right Heart using Low Osmolar Contrast (ICD-10-PCS; 2018-07-23)
PROC: B24BZZ4 Ultrasonography of Heart with Aorta, Transesophageal (ICD-10-PCS; 2018-07-23)
PROC: 5A1D70Z Performance of Urinary Filtration, Intermittent, Less than 6 Hours Per Day (ICD-10-PCS; 2018-07-23)
PROC: 5A1D70Z Performance of Urinary Filtration, Intermittent, Less than 6 Hours Per Day (ICD-10-PCS; 2018-07-24)
PROC: 5A1D70Z Performance of Urinary Filtration, Intermittent, Less than 6 Hours Per Day (ICD-10-PCS; 2018-07-28)
PROC: 5A1D70Z Performance of Urinary Filtration, Intermittent, Less than 6 Hours Per Day (ICD-10-PCS; 2018-07-29)
PROC: 5A1D70Z Performance of Urinary Filtration, Intermittent, Less than 6 Hours Per Day (ICD-10-PCS; 2018-07-31)
PROC: 5A1D70Z Performance of Urinary Filtration, Intermittent, Less than 6 Hours Per Day (ICD-10-PCS; 2018-08-02)
PROC: 5A1D70Z Performance of Urinary Filtration, Intermittent, Less than 6 Hours Per Day (ICD-10-PCS; 2018-08-05)
DX: A41.02 Sepsis due to Methicillin resistant Staphylococcus aureus (principal); N18.6 End stage renal disease; E43 Unspecified severe protein-calorie malnutrition; N39.0 Urinary tract infection, site not specified; G93.40 Encephalopathy, unspecified; E87.1 Hypo-osmolality and hyponatremia; I12.0 Hypertensive chronic kidney disease with stage 5 chronic kidney disease or end stage renal disease; A04.71 Enterocolitis due to Clostridium difficile, recurrent; J90 Pleural effusion, not elsewhere classified; J98.11 Atelectasis; I38 Endocarditis, valve unspecified; T82.898A Other specified complication of vascular prosthetic devices, implants and grafts, initial encounter; D63.1 Anemia in chronic kidney disease; Z99.2 Dependence on renal dialysis; B37.9 Candidiasis, unspecified; F01.50 Vascular dementia, unspecified severity, without behavioral disturbance, psychotic disturbance, mood disturbance, and anxiety; R62.7 Adult failure to thrive; E87.5 Hyperkalemia; E87.6 Hypokalemia; F32.9 Major depressive disorder, single episode, unspecified; F41.9 Anxiety disorder, unspecified; G43.909 Migraine, unspecified, not intractable, without status migrainosus; G25.81 Restless legs syndrome; I69.311 Memory deficit following cerebral infarction; K21.9 Gastro-esophageal reflux disease without esophagitis; K57.30 Diverticulosis of large intestine without perforation or abscess without bleeding; Z51.5 Encounter for palliative care; Z66 Do not resuscitate; Z79.899 Other long term (current) drug therapy; Z86.14 Personal history of Methicillin resistant Staphylococcus aureus infection; Z87.11 Personal history of peptic ulcer disease; Z87.891 Personal history of nicotine dependence; Z90.710 Acquired absence of both cervix and uterus; Z91.19 Patient's noncompliance with other medical treatment and regimen; Z90.49 Acquired absence of other specified parts of digestive tract; Z88.8 Allergy status to other drugs, medicaments and biological substances
CPT/HCPCS: 36415; 36558; 36589; 70450; 71045; 73030; 74176; 76000; 76376; 76937; 77001; 80048; 80053; 80069; 80202; 80307; 81001; 82553; 82607; 83540; 83550; 83605; 83690; 83735; 83880; 83970; 84100; 84134; 84443; 84478; 84484; 85007; 85014; 85018; 85025; 85027; 85045; 85610; 85730; 86592; 86706; 86850; 86900; 86901; 86920; 87040; 87077; 87086; 87186; 87205; 87340; 87493; 87804; 93005; 93306; 93312; 93325; 94640; 94760; 96365; 96367; 99152; C1750; C1751; C1769; C1892; J0712; J0881; J1170; J2060; J2250; J2405; J2543; J2704; J3010; J3370; J3475; J3480; J3490; J7050; J7620; P9016; P9612; Q0162; 92526; 92610; 97110; 97116; 97530; 97535; 99285-25; J7030